=== PATIENT | male | born 1975 | race American Indian/Alaskan Native ===

== ENCOUNTER 2017-04-05 13:16 | Emergency (ER) | payer MEDICAID ==
[2017-04-05 13:38] VITALS: RESP 20; TEMP 97.5
--- NOTE | 2017-04-05 14:38 | C.PDOC ---
History Of Present Illness 41 y/o male with questionable history of HTN, not on medications presents to ED with complaints of bilateral ankle and feet swelling for the past few days. Denies injury, chest pain, SOB, fever, chills, calf pain or any other complaints. Pt has not seen a doctor in past year. no recent surgery, no prolonged immobilization. Time Seen by Provider: 04/05/17 13:43 Chief Complaint (Nursing): Lower Extremity Problem/Injury History Per: Patient History/Exam Limitations: no limitations Onset/Duration Of Symptoms: Days Current Symptoms Are (Timing): Still Present Severity: Mild Recent travel outside of the [place]: No Past Medical History Reviewed: Historical Data, Nursing Documentation, Vital Signs Vital Signs: Last Vital Signs Temp 97.5 F L 04/05/17 13:34 Pulse 71 04/05/17 16:44 Resp 20 04/05/17 16:44 BP 140/85 04/05/17 16:44 Pulse Ox 97 04/08/17 05:01 - Medical History PMH: HTN Family History: States: Unknown Family Hx - Social History Hx Tobacco Use: Yes Hx Alcohol Use: Yes Hx Substance Use: Yes - Immunization History Hx Tetanus Toxoid Vaccination: No Hx Influenza Vaccination: No Hx Pneumococcal Vaccination: No Review Of Systems Constitutional: Negative for: Fever Cardiovascular: Negative for: Chest Pain, Palpitations, Orthopnea Respiratory: Negative for: Cough, Shortness of Breath Gastrointestinal: Negative for: Abdominal Pain Musculoskeletal: Positive for: Other (bilateral ankle and foot swelling; no calf pain) Neurological: Negative for: Weakness, Numbness Physical Exam - Physical Exam Appears: Non-toxic, No Acute Distress, Other (morbidly obese) Skin: Warm, Dry, No Rash Head: Atraumatic, Normacephalic Neck: Normal ROM, Supple Chest: Symmetrical Cardiovascular: Rhythm Regular, No Murmur Respiratory: Normal Breath Sounds, No Rales, No Rhonchi, No Wheezing Extremity: Normal ROM, No Calf Tenderness, Swelling (bilateral lower extremity swelling with +1/2 pitting edema, right greater than left. Fungal changes to bilateral toe nails) Pulses: Left Dorsalis Pedis: Normal, Right Dorsalis Pedis: Normal Neurological/Psych: Oriented x3, Normal Speech, Normal Cognition, Normal Motor, Normal Sensation ED Course And Treatment O2 Sat by Pulse Oximetry: 97 (room air) Pulse Ox Interpretation: Normal Progress Note: Plan: venous duplex bilat lower extremity. Study negative for DVT bilaterally. Disposition Counseled Patient/Family Regarding: Studies Performed, Diagnosis, Need For Followup, Smoking Cessation - Disposition Referrals: Jonatan Magana MD [Medical Doctor] - Disposition: HOME/ ROUTINE Disposition Time: 16:36 Condition: STABLE Additional Instructions: Keep legs elevated when possible. Follow up wit Dr Magana at your scheduled appointment. Return to ER for any worsening symptms. Weight loss and walking recommended. 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 - Scribe Statement The provider has reviewed the documentation as recorded by the Scribkahlil Layotn All medical record entries made by the Alexandruibe were at my direction and personally dictated by me. I have reviewed the chart and agree that the record accurately reflects my personal performance of the history, physical exam, medical decision making, and the department course for this patient. I have also personally directed, reviewed, and agree with the discharge instructions and disposition.
--- NOTE | 2017-04-05 16:16 | VASCLAB ---
PROCEDURE: Lower Extremity Venous Duplex Exam. HISTORY: bilateral swelling. right greater than left PRIORS: None. TECHNIQUE: Bilateral common femoral, femoral, popliteal and posterior tibial, peroneal and great saphenous veins were evaluated. Flow was assessed with color Doppler, compressibility, assessment of phasic flow and augmentation response. Report prepared by Raleigh Staley, MARLEN, RVT FINDINGS: RIGHT: 1. Common Femoral Vein: 1.1. Compressibility - Fully compressible: Thrombus - None : Flow - Phasic: Augmentation -Normal: Reflux - None. 2. Femoral Vein: 2.1. Compressibility - Fully compressible: Thrombus - None : Flow - Phasic: Augmentation -Normal: Reflux - None. 3. Popliteal Vein: 3.1. Compressibility - Fully compressible: Thrombus - None : Flow - Phasic: Augmentation -Normal: Reflux - None. 4. Posterior Tibial Vein: 4.1. Compressibility - Fully compressible: Thrombus - None: Flow - Phasic: Augmentation -Normal: Reflux - None. 5. Peroneal Vein: 5.1. Compressibility - Fully compressible: Thrombus - None: Flow - Phasic: Augmentation -Normal: Reflux - None. 6. Great Saphenous Vein: 6.1. Compressibility - Fully compressible: Thrombus - None: Flow - Phasic: Augmentation - Normal: Reflux - None. LEFT: 1. Common Femoral Vein: 1.1. Compressibility - Fully compressible: Thrombus - None: Flow - Phasic: Augmentation -Normal: Reflux - None. 2. Femoral Vein: 2.1. Compressibility - Fully compressible: Thrombus - None: Flow - Phasic: Augmentation -Normal: Reflux - None. 3. Popliteal Vein: 3.1. Compressibility - Fully compressible: Thrombus - None : Flow - Phasic: Augmentation -Normal: Reflux - None. 4. Posterior Tibial Vein: 4.1. Compressibility - Fully compressible: Thrombus - None: Flow - Phasic: Augmentation -Normal: Reflux - None. 5. Peroneal Vein: 5.1. Compressibility - Fully compressible: Thrombus - None: Flow - Phasic: Augmentation -Normal: Reflux - None. 6. Great Saphenous Vein: 6.1. Compressibility - Fully compressible: Thrombus - None: Flow - Phasic: Augmentation - Normal: Reflux - None. OTHER FINDINGS: Right: None significant. Left: None significant. IMPRESSION: Right: No evidence of deep or superficial vein thrombosis of the right lower extremity. Normal valve function noted of the right side. Left: No evidence of deep or superficial vein thrombosis of the left lower extremity. Normal valve function noted of the left side.
[2017-04-05 16:44] VITALS: BP 140/85; PULSE 71
[2017-04-08 05:02] VITALS: O2SAT 97
== END 2017-04-05 16:48 | disposition home or self-care (01) ==
LOC: C.ER 13:16
DX: R60.0 Localized edema (principal)

== ENCOUNTER 2017-10-24 06:51 | Emergency (ER) | payer MEDICAID ==
[2017-10-24 06:51] VITALS: BMI 103.4
[2017-10-24] MEDS ORDERED: Albuterol-Ipratrop 3 mg / 0.5 (3 ml) UD INH STA (07:25)
--- NOTE | 2017-10-24 07:35 | C.PDOC ---
History Of Present Illness 42-year-old male, presents to the emergency department with complaints of four day duration of a productive cough with white/yellow sputum that is associated with left sided chest and abdominal pain (only with cough). He notes mild associated shortness of breath. Patient denies any fever or chills. Of note, [facility] Time Seen by Provider: 10/24/17 07:02 Chief Complaint (Nursing): Cough, Cold, Congestion History Per: Patient History/Exam Limitations: no limitations Onset/Duration Of Symptoms: Days Current Symptoms Are (Timing): Still Present Past Medical History Reviewed: Historical Data, Nursing Documentation, Vital Signs Vital Signs: Last Vital Signs Temp 98.2 F 10/24/17 10:11 Pulse 102 H 10/24/17 10:11 Resp 20 10/24/17 10:11 BP 138/70 10/24/17 10:11 Pulse Ox 96 10/24/17 10:11 - Medical History PMH: Depression, HTN Family History: States: No Known Family Hx - Social History Hx Tobacco Use: Yes Hx Alcohol Use: Yes Hx Substance Use: Yes - Immunization History Hx Tetanus Toxoid Vaccination: No Hx Influenza Vaccination: No Hx Pneumococcal Vaccination: No Review Of Systems Constitutional: Negative for: Fever, Chills Cardiovascular: Positive for: Chest Pain Respiratory: Positive for: Cough, Shortness of Breath, Sputum (white-yellow) Gastrointestinal: Positive for: Abdominal Pain. Negative for: Vomiting Musculoskeletal: Negative for: Back Pain Neurological: Negative for: Weakness, Numbness, Headache Physical Exam - Physical Exam Appears: Non-toxic, No Acute Distress, Other (morbidly obese) Skin: Warm, Dry, No Rash Eye(s): bilateral: Normal Inspection Nose: Normal Oral Mucosa: Moist Lips: Normal Appearing Neck: Normal ROM, Supple Chest: Symmetrical, No Tenderness Cardiovascular: Rhythm Regular, No Murmur Respiratory: No Accessory Muscle Use, No Rales, No Rhonchi, No Wheezing, Other ( moist cough) Extremity: Normal ROM, No Tenderness, Swelling, Other Neurological/Psych: Oriented x3, Normal Speech, Normal Cognition, Normal Motor, Normal Sensation ED Course And Treatment - Laboratory Results Result Diagrams: 10/24/17 07:51 10/24/17 07:51 O2 Sat by Pulse Oximetry: 95 (RA) Medical Decision Making Medical Decision Making: Plan: * CMP * CBC * Chest X-Ray * Duoneb * Blood Cultures * Reassess and Disposition 936 am pt feeling better, cxr neg for infiltrate, pt made aware of mild venous congestion and need to follow up with Dr Magana and cardiology. Will d/c patient with zpak and albuterol mdi for bronchitis. Disposition Counseled Patient/Family Regarding: Studies Performed, Diagnosis, Need For Followup, Rx Given - Disposition Referrals: Jonatan Magana MD [Medical Doctor] - Disposition: HOME/ ROUTINE Disposition Time: 09:38 Condition: IMPROVED Additional Instructions: Take medications as prescribed. Follow up with Dr Magana in a few days; show him your xray report and recommend a referral to cardiology. Return to ER for any worsening symptoms. Prescriptions: Albuterol HFA [Ventolin HFA 90 mcg/actuation (8 g)] 2 puff IH Q6 #1 inhaler Azithromycin [Z-Ej] 250 mg PO DAILY #6 tab Instructions: Acute Bronchitis (ED) Forms: [facility] (Wallisian), General Discharge Instructions - Clinical Impression Clinical Impression: Bronchitis - Scribe Statement The provider has reviewed the documentation as recorded by the Scribe (Sofia Morales) All medical record entries made by the Scribe were at my direction and personally dictated by me. I have reviewed the chart and agree that the record accurately reflects my personal performance of the history, physical exam, medical decision making, and the department course for this patient. I have also personally directed, reviewed, and agree with the discharge instructions and disposition.
[2017-10-24] MEDS ORDERED: Albuterol-Ipratrop 3 mg / 0.5 (3 ml) UD ONE (07:48)
[2017-10-24 07:54] LABS: BASO # 0.1 K/uL (0.0-0.2); BASO % 0.8 % (0.0-2.0); EOS % 0.3 % (0.0-4.0); LYMPH # 1.3 K/uL (1.0-4.3); LYMPH % 13.4 % (20.0-40.0); MEAN CELL VOLUME 78.6 fL (80.0-94.0); MEAN CORPUSCULAR HEMOGLOBIN 27.1 pg (27.0-31.0); MEAN CORPUSCULAR HGB CONC 34.4 g/dL (33.0-37.0); MEAN PLATELET VOLUME 7.9 fL (7.2-11.7); MONO # 1.3 K/uL (0.0-0.8); MONO % 12.9 % (0.0-10.0); NEUT # 7.1 K/uL (1.8-7.0); NEUT % 72.6 % (50.0-75.0); RBC 4.8 Mil/uL (4.40-5.90); RED CELL DISTRIBUTION WIDTH 14.5 % (11.5-14.5); WHITE BLOOD COUNT 9.7 K/uL (4.8-10.8)
[2017-10-24 08:00] VITALS: RESP 20
[2017-10-24 08:06] LABS: ALBUMIN 3.7 g/dL (3.5-5.0); ALT/SGPT 35 U/L (21-72); AST/SGOT 38 U/L (17-59); BLOOD UREA NITROGEN 11 mg/dL (9-20); CALCIUM 7.9 mg/dl (8.6-10.4); GFR AFRICAN-AMERICAN > 60; GFR NON-AFRICAN AMERICAN > 60
[2017-10-24 09:06] LABS: SQUAMOUS EPITHIAL < 1 /hpf (0-5); URINE BACTERIA RARE (<OCC); URINE BILIRUBIN NEGATIVE (NEGATIVE); URINE BLOOD NEGATIVE (NEGATIVE); URINE CLARITY Hazy (Clear); URINE COLOR Yellow (YELLOW); URINE GLUCOSE (UA) NORMAL (Normal); URINE LEUKOCYTE ESTERASE NEG Leu/uL (Negative); URINE NITRATE NEGATIVE (NEGATIVE); URINE PROTEIN 1+ mg/dL (NEGATIVE); URINE UROBILINOGEN NORMAL mg/dL (0.2-1.0)
--- NOTE | 2017-10-24 09:14 | RAD ---
Chest x-ray single frontal view History: Shortness of breath. Comparison: 08/03/2016 Findings: Mild venous congestion. Mild cardiomegaly. Degenerative changes in the spine and shoulders. Impression: Mild venous congestion.
[2017-10-24 10:17] VITALS: BP 138/70; PULSE 102; TEMP 98.2
[2017-10-24 19:27] VITALS: O2SAT 95
== END 2017-10-24 10:17 | disposition home or self-care (01) ==
LOC: SUPCPDRO 06:51 → C.ER 06:51
DX: J40 Bronchitis, not specified as acute or chronic (principal)

== ENCOUNTER 2017-10-25 08:12 | Observation (INO) | payer MEDICAID ==
[2017-10-25 08:13] VITALS: BMI 103.4
[2017-10-25] MEDS ORDERED: Albuterol 0.083% Inhal Sol (2.5 mg/3 mL) UD ONE (08:42)
[2017-10-25] MEDS ORDERED: Promethazine/Cod 6.25mg-10mg/5ml Syr UD PO STA (09:01)
[2017-10-25] MEDS ORDERED: Albuterol 0.083% Inhal Sol (2.5 mg/3 mL) UD IH STA (09:01)
--- NOTE | 2017-10-25 09:07 | C.PDOC ---
History Of Present Illness 42 y/o male presents to ED with complaints of persistent cough with associated SOB for 6 days. Patient was seen at ED yesterday for same symptoms and given abx without relief. Notes "cough kept me up all night." Patient denies chest pain, headache, nausea, vomiting, abdominal pain, leg swelling or any other complaints at this time. Time Seen by Provider: 10/25/17 08:28 Chief Complaint (Nursing): Cough, Cold, Congestion History Per: Patient History/Exam Limitations: no limitations Onset/Duration Of Symptoms: Days Current Symptoms Are (Timing): Still Present Reports Recently: Seen In ED (10/24/17), Treated By A Physician Past Medical History Reviewed: Historical Data, Nursing Documentation, Vital Signs Vital Signs: Last Vital Signs Temp 98.7 F 10/25/17 16:43 Pulse 93 H 10/25/17 16:43 Resp 23 10/25/17 16:43 BP 151/90 H 10/25/17 16:43 Pulse Ox 95 10/25/17 16:43 - Medical History PMH: Depression, HTN Surgical History: No Surg Hx Family History: States: No Known Family Hx - Social History Hx Tobacco Use: Yes Hx Alcohol Use: Yes Hx Substance Use: Yes - Immunization History Hx Tetanus Toxoid Vaccination: No Hx Influenza Vaccination: No Hx Pneumococcal Vaccination: No Review Of Systems Cardiovascular: Positive for: Chest Pain Respiratory: Positive for: Cough, Wheezing. Negative for: Shortness of Breath Gastrointestinal: Negative for: Nausea, Vomiting Skin: Negative for: Rash Physical Exam - Physical Exam Appears: Non-toxic, Unkempt, Other (Morbidly obese) Skin: Warm, Dry, No Rash Head: Atraumatic, Normacephalic Eye(s): bilateral: Normal Inspection, PERRL, EOMI Ear(s): Bilateral: Normal Nose: Normal Oral Mucosa: Moist Throat: Normal, No Erythema, No Exudate Neck: Normal ROM, Supple Chest: Symmetrical Cardiovascular: Rhythm Regular Respiratory: Decreased Breath Sounds, No Accessory Muscle Use, No Rales, No Rhonchi, No Wheezing Gastrointestinal/Abdominal: Soft, No Tenderness, No Guarding, No Rebound Extremity: Normal ROM, No Pedal Edema, Capillary Refill (<2 seconds) Neurological/Psych: Oriented x3 ED Course And Treatment - Laboratory Results Result Diagrams: 10/25/17 09:36 10/25/17 09:36 O2 Sat by Pulse Oximetry: 95 (RA) Pulse Ox Interpretation: Normal Progress Note: ECG, Blood work, Neb Treatment, Influenza Test ordered. On re- evaluation, pt notes symtpoms persists, requests admission. Case discussed with Dr Todd, agreed upon admission. 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 - Scribe Statement The provider has reviewed the documentation as recorded by the Scribkahlil Padilla All medical record entries made by the Kaleigh were at my direction and personally dictated by me. I have reviewed the chart and agree that the record accurately reflects my personal performance of the history, physical exam, medical decision making, and the department course for this patient. I have also personally directed, reviewed, and agree with the discharge instructions and disposition.
[2017-10-25] MEDS ORDERED: Promethazine/Cod 6.25mg-10mg/5ml Syr UD ONE (09:38)
[2017-10-25 09:44] LABS: BASO # 0.1 K/uL (0.0-0.2); BASO % 0.8 % (0.0-2.0); EOS % 0.4 % (0.0-4.0); HEMOGLOBIN 12.5 g/dL (12.0-18.0); LYMPH # 1.6 K/uL (1.0-4.3); LYMPH % 17.1 % (20.0-40.0); MEAN CELL VOLUME 78.9 fL (80.0-94.0); MEAN CORPUSCULAR HEMOGLOBIN 26.7 pg (27.0-31.0); MEAN CORPUSCULAR HGB CONC 33.9 g/dL (33.0-37.0); MEAN PLATELET VOLUME 7.9 fL (7.2-11.7); MONO % 10.2 % (0.0-10.0); NEUT # 6.7 K/uL (1.8-7.0); NEUT % 71.5 % (50.0-75.0); RBC 4.67 Mil/uL (4.40-5.90); RED CELL DISTRIBUTION WIDTH 14.8 % (11.5-14.5); WHITE BLOOD COUNT 9.4 K/uL (4.8-10.8)
[2017-10-25 10:14] LABS: ALBUMIN 3.6 g/dL (3.5-5.0); ALT/SGPT 27 U/L (21-72); AST/SGOT 42 U/L (17-59); BLOOD UREA NITROGEN 12 mg/dL (9-20); CALCIUM 8.1 mg/dl (8.6-10.4); GFR AFRICAN-AMERICAN > 60; GFR NON-AFRICAN AMERICAN > 60
[2017-10-25 10:27] LABS: B-TYPE NATRIURETIC PEPTIDE 50.7 pg/mL (0-450)
[2017-10-25] MEDS ORDERED: Sodium Chloride 0.9% 1,000 ML IV ONE (11:06)
--- NOTE | 2017-10-25 13:13 | CP.PCM.HP ---
Past Patient History - Infectious Disease Hx of Infectious Diseases: None - Past Social History Smoking Status: Light Smoker < 10 Cigarettes Daily - CARDIAC Hx Hypertension: Yes - ENDOCRINE/METABOLIC Other/Comment: Obesity as per patient - PSYCHIATRIC Hx Depression: Yes Hx Substance Use: Yes - SURGICAL HISTORY Hx Surgeries: No - ANESTHESIA Hx Anesthesia: No Hx Anesthesia Reactions: No Hx Malignant Hyperthermia: No Meds Allergies/Adverse Reactions: Allergies Allergy/AdvReac Type Severity Reaction Status Date / Time No Known Allergies Allergy Verified 10/25/17 08:29 Physical Exam - Constitutional Appears: Well - Head Exam Head Exam: ATRAUMATIC, NORMAL INSPECTION, NORMOCEPHALIC - Eye Exam Eye Exam: EOMI, Normal appearance, PERRL Pupil Exam: NORMAL ACCOMODATION, PERRL - ENT Exam ENT Exam: Mucous Membranes Moist, Normal Exam - Neck Exam Neck exam: Positive for: Normal Inspection - Respiratory Exam Respiratory Exam: Decreased Breath Sounds - Cardiovascular Exam Cardiovascular Exam: REGULAR RHYTHM, +S1, +S2 - GI/Abdominal Exam GI & Abdominal Exam: Diminished Bowel Sounds, Soft - Rectal Exam Rectal Exam: Deferred Results - Vital Signs Recent Vital Signs: Last Vital Signs Temp 99.0 F 10/25/17 08:23 Pulse 109 H 10/25/17 08:23 Resp 26 H 10/25/17 08:23 BP 145/87 10/25/17 08:23 Pulse Ox 95 10/25/17 09:10 - Labs Result Diagrams: 10/25/17 09:36 10/25/17 09:36 Labs: Laboratory Results - last 24 hr 10/25/17 10/25/17 10/25/17 08:12 09:36 09:36 WBC 9.4 RBC 4.67 Hgb 12.5 Hct 36.8 MCV 78.9 L MCH 26.7 L MCHC 33.9 RDW 14.8 H Plt Count 225 MPV 7.9 Neut % (Auto) 71.5 Lymph % (Auto) 17.1 L [place] % (Auto) 10.2 H Eos % (Auto) 0.4 Baso % (Auto) 0.8 Neut # (Auto) 6.7 Lymph # (Auto) 1.6 [place] # (Auto) 1.0 H Eos # (Auto) 0.0 Baso # (Auto) 0.1 Sodium 134 Potassium 3.5 L Chloride 97 L Carbon Dioxide 26 Anion Gap 14 BUN 12 Creatinine 0.8 Est GFR ( Amer) > 60 Est GFR (Non-Af Amer) > 60 Random Glucose 131 H Calcium 8.1 L Total Bilirubin 0.5 AST 42 ALT 27 Alkaline Phosphatase 85 Total Creatine Kinase 1161 H CK-MB (Mass) 2.40 Troponin I 0.0180 NT-Pro-B Natriuret Pep 50.7 Total Protein 7.2 Albumin 3.6 Globulin 3.6 Albumin/Globulin Ratio 1.0 Influenza Typ A,B (EIA) Negative for flu a/b
[2017-10-25] MEDS ORDERED: Potassium Chloride 20 mEq ER Tab PO ONE (16:29)
[2017-10-25] MEDS: cefTRIAXone IV 1 gm in Dextros 50 ML IVPB SCH ×2 (16:41→18:07)
[2017-10-25] MEDS: Potassium Chloride 20 mEq ER Tab PO SCH (16:41)
[2017-10-25] MEDS: MethylPREDNISolone 40 mg Vial IVP SCH ×2 (16:42→18:07)
[2017-10-25 17:08] LABS: B-TYPE NATRIURETIC PEPTIDE 40.6 pg/mL (0-450)
[2017-10-25] MEDS ORDERED: Azithromycin 500 MG in Sodium Chloride 0.9% 250 ML IVPB SCH (18:00)
--- NOTE | 2017-10-25 20:07 | CP.PCM.CON ---
Past Patient History - Infectious Disease Hx of Infectious Diseases: None - Past Social History Smoking Status: Light Smoker < 10 Cigarettes Daily - CARDIAC Hx Hypertension: Yes - ENDOCRINE/METABOLIC Other/Comment: Obesity as per patient - PSYCHIATRIC Hx Depression: Yes Hx Substance Use: Yes - SURGICAL HISTORY Hx Surgeries: No - ANESTHESIA Hx Anesthesia: No Hx Anesthesia Reactions: No Hx Malignant Hyperthermia: No Meds Allergies/Adverse Reactions: Allergies Allergy/AdvReac Type Severity Reaction Status Date / Time No Known Allergies Allergy Verified 10/25/17 08:29 - Medications Medications: Current Medications Albuterol Sulfate (Albuterol 0.083% Inhal Patricia (2.5 Mg/3 Ml) Ud) 2.5 mg INH RQ6 [facility] Famotidine (Pepcid) 20 mg PO BID [facility] Last Admin: 10/25/17 16:42 Dose: 20 mg Ceftriaxone Sodium (Rocephin Iv 1 Gm Duplex) 50 mls @ 100 mls/hr IVPB DAILY [facility] Last Admin: 10/25/17 18:07 Dose: Not Given Azithromycin 500 mg/ Sodium (Chloride) 250 mls @ 166.667 mls/hr IVPB Q24H [facility] Last Admin: 10/25/17 18:07 Dose: 166.667 mls/hr Methylprednisolone (Solu-Medrol) 40 mg IVP Q8H [facility] Last Admin: 10/25/17 18:07 Dose: 40 mg Potassium Chloride (K-Dur 20 Meq Er Tab) 40 meq PO BRK [facility] Last Admin: 10/25/17 16:41 Dose: 40 meq Results - Vital Signs Recent Vital Signs: Last Vital Signs Temp 98.6 F 10/25/17 19:48 Pulse 110 H 10/25/17 19:48 Resp 24 10/25/17 19:48 BP 143/86 10/25/17 19:48 Pulse Ox 93 L 10/25/17 19:48 - Labs Result Diagrams: 10/25/17 09:36 10/25/17 09:36 Labs: Laboratory Results - last 24 hr 10/25/17 10/25/17 10/25/17 08:12 09:36 09:36 WBC 9.4 RBC 4.67 Hgb 12.5 Hct 36.8 MCV 78.9 L MCH 26.7 L MCHC 33.9 RDW 14.8 H Plt Count 225 MPV 7.9 Neut % (Auto) 71.5 Lymph % (Auto) 17.1 L [place] % (Auto) 10.2 H Eos % (Auto) 0.4 Baso % (Auto) 0.8 Neut # (Auto) 6.7 Lymph # (Auto) 1.6 [place] # (Auto) 1.0 H Eos # (Auto) 0.0 Baso # (Auto) 0.1 Sodium 134 Potassium 3.5 L Chloride 97 L Carbon Dioxide 26 Anion Gap 14 BUN 12 Creatinine 0.8 Est GFR ( Amer) > 60 Est GFR (Non-Af Amer) > 60 Random Glucose 131 H Calcium 8.1 L Total Bilirubin 0.5 AST 42 ALT 27 Alkaline Phosphatase 85 Total Creatine Kinase 1161 H CK-MB (Mass) 2.40 Troponin I 0.0180 NT-Pro-B Natriuret Pep 50.7 Total Protein 7.2 Albumin 3.6 Globulin 3.6 Albumin/Globulin Ratio 1.0 Influenza Typ A,B (EIA) Negative for flu a/b 10/25/17 16:43 WBC RBC Hgb Hct MCV MCH MCHC RDW Plt Count MPV Neut % (Auto) Lymph % (Auto) [place] % (Auto) Eos % (Auto) Baso % (Auto) Neut # (Auto) Lymph # (Auto) [place] # (Auto) Eos # (Auto) Baso # (Auto) Sodium Potassium Chloride Carbon Dioxide Anion Gap BUN Creatinine Est GFR ( Amer) Est GFR (Non-Af Amer) Random Glucose Calcium Total Bilirubin AST ALT Alkaline Phosphatase Total Creatine Kinase 1103 H CK-MB (Mass) Troponin I NT-Pro-B Natriuret Pep 40.6 Total Protein Albumin Globulin Albumin/Globulin Ratio Influenza Typ A,B (EIA)
[2017-10-25] MEDS: Albuterol 0.083% Inhal Sol (2.5 mg/3 mL) UD INH SCH (20:29)
[2017-10-25 23:40] VITALS: RESP 20
[2017-10-26] MEDS: Albuterol 0.083% Inhal Sol (2.5 mg/3 mL) UD INH SCH ×2 (01:39→07:36)
[2017-10-26] MEDS: MethylPREDNISolone 40 mg Vial IVP SCH ×3 (01:59→18:00)
--- NOTE | 2017-10-26 08:23 | CP.PCM.PN ---
Subjective - Date & Time of Evaluation Date of Evaluation: 10/26/17 Time of Evaluation: 08:19 - Subjective Subjective: 42 year old male with past medical history of HTN and morbid obesity is admitted to hospital for acute bronchitis. Patient states that he has had a non -productive cough for past week. Cough is worse at night. Denies having any shortness of breath or wheezing. Cough is accompanied with sharp left sided chest pain. Pain does not radiate. Patient has not used anything for symptoms. Denies having any F/C, abd pain, N/V/D/C, rhinorrhea, sinus pressure or sinus congestion. In the ED, patient was given stat dose of IV steroids and IV abx. Pt currently complains of left sided sharp chest pain. 12 point ROS negative except for above mentioned. PMHx: stated above. Sx: denies Social: smokes 1/2 ppd, no ETOH use or drug use Meds: denies Objective - Vital Signs/Intake and Output Vital Signs (last 24 hours): Temp Pulse Resp BP Pulse Ox 97.9 F 99 H 20 143/81 94 L 10/26/17 07:41 10/26/17 07:41 10/26/17 07:41 10/26/17 07:41 10/26/17 07:41 Intake and Output: 10/26/17 10/26/17 06:59 18:59 Intake Total 300 Output Total 400 Balance -100 - Medications Medications: Current Medications Acetaminophen (Tylenol 325mg Tab) 650 mg PO Q6 PRN PRN Reason: Pain, moderate (4-7) Albuterol/Ipratropium (Duoneb 3 Mg/0.5 Mg (3 Ml) Ud) 3 ml INH RQ6 [facility] Enoxaparin Sodium (Lovenox) 40 mg SC DAILY [facility] Famotidine (Pepcid) 20 mg PO BID [facility] Last Admin: 10/25/17 16:42 Dose: 20 mg Ceftriaxone Sodium (Rocephin Iv 1 Gm Duplex) 50 mls @ 100 mls/hr IVPB DAILY [facility] Last Admin: 10/25/17 18:07 Dose: Not Given Azithromycin 500 mg/ Sodium (Chloride) 250 mls @ 166.667 mls/hr IVPB Q24H [facility] Last Admin: 10/25/17 18:07 Dose: 166.667 mls/hr Methylprednisolone (Solu-Medrol) 40 mg IVP Q8H [facility] Last Admin: 10/26/17 01:59 Dose: 40 mg Pneumococcal Polyvalent Vaccine (Pneumovax 23 Vaccine) 0.5 ml SC .ONCE ONE Stop: 10/26/17 10:01 Pneumococcal Polyvalent Vaccine (Pneumovax 23 Vaccine) 0.5 ml IM .ONCE ONE Stop: 10/27/17 10:01 Potassium Chloride (K-Dur 20 Meq Er Tab) 40 meq PO BRK [facility] Last Admin: 10/25/17 16:41 Dose: 40 meq Promethazine HCl (Phenergan Syrup) 12.5 mg PO Q6 [facility] - Labs Labs: 10/25/17 09:36 10/25/17 09:36 - Constitutional Appears: Non-toxic, No Acute Distress - Head Exam Head Exam: ATRAUMATIC - ENT Exam ENT Exam: Mucous Membranes Moist - Respiratory Exam Respiratory Exam: Wheezes. absent: Accessory Muscle Use, Clear to Ausculation Bilateral, Rales, Rhonchi, Respiratory Distress - Cardiovascular Exam Cardiovascular Exam: REGULAR RHYTHM, +S1, +S2. absent: Gallop, Rubs, Murmur Additional comments: chest non-tender to palpation - GI/Abdominal Exam GI & Abdominal Exam: Soft, Normal Bowel Sounds. absent: Distended, Firm, Guarding, Rigid, Tenderness, Organomegaly - Extremities Exam Extremities Exam: absent: Pedal Edema, Tenderness - Neurological Exam Neurological Exam: Alert, Awake, Oriented x3 - Psychiatric Exam Psychiatric exam: Normal Affect, Normal Mood - Skin Skin Exam: Dry, Intact, Normal Color, Warm Assessment and Plan - Assessment and Plan (Free Text) Assessment: 42 year old male with past medical history of HTN and morbid obesity is admitted for URI URI - CXR on admission showed mild venous congestion - Pro-BNP was negative. Initial trops were negative - EKG showed NSR with some T wave flattening in V4-6 and prolonged QT interval - Continue methylprednisone 40 mg IV q8 - Pt received Zithromax and rocephin in ED. - Pt is noted to have stable vital signs, and afebrile. No elevation in WBC count. - Due to prolonged QT interval, will switch Abx. Will start pt on rocephin and doxycycline Chest pain - Initial troponin is negative. CPK is elevated at 1100 - EKG showed T wave changes in V4-6 - Will check serial troponins and EKG - Pain likely due to costochondritis. However, due to risk factors for CAD ( smoking, male, hx of HTN) will get echo - Will consult cardiology, Dr. Gagnon HTN - Will start pt on Cozaar - Will continue to monitor Prophylaxis - Lovenox - Pepcid Case will be discussed with attending. All managements and orders per Dr. Todd
[2017-10-26] MEDS: Potassium Chloride 20 mEq ER Tab PO SCH (08:26)
[2017-10-26] MEDS ORDERED: guaiFENesin 200 mg/10 ml Syrup UD PO PRN (08:40)
[2017-10-26] MEDS: Promethazine 12.5 mg/10 ml Syrup PO SCH ×3 (10:00→18:05)
[2017-10-26] MEDS ORDERED: cefTRIAXone IV 1 gm in Dextros 50 ML IVPB SCH (10:00)
[2017-10-26] MEDS ORDERED: Pneumococcal 23-Valent Vaccine SC ONE (10:00)
[2017-10-26 10:27] LABS: BASO % 0.1 % (0.0-2.0); HEMOGLOBIN 12.4 g/dL (12.0-18.0); LYMPH # 1.2 K/uL (1.0-4.3); LYMPH % 8.1 % (20.0-40.0); MEAN CELL VOLUME 79.9 fL (80.0-94.0); MEAN CORPUSCULAR HEMOGLOBIN 26.9 pg (27.0-31.0); MEAN CORPUSCULAR HGB CONC 33.7 g/dL (33.0-37.0); MEAN PLATELET VOLUME 8.1 fL (7.2-11.7); MONO # 0.5 K/uL (0.0-0.8); MONO % 3.6 % (0.0-10.0); NEUT # 13.1 K/uL (1.8-7.0); NEUT % 88.2 % (50.0-75.0); PLATELET COUNT 266 K/uL (130-400); RBC 4.61 Mil/uL (4.40-5.90); RED CELL DISTRIBUTION WIDTH 14.9 % (11.5-14.5)
[2017-10-26 10:29] LABS: WHITE BLOOD COUNT 14.8 K/uL (4.8-10.8)
[2017-10-26] MEDS: Enoxaparin 40 mg Syringe SC SCH (10:47)
[2017-10-26 10:55] LABS: LDL CHOLESTEROL 92 mg/dL (0-129)
[2017-10-26 11:02] LABS: ALBUMIN 3.7 g/dL (3.5-5.0); ALT/SGPT 27 U/L (21-72); AST/SGOT 39 U/L (17-59); BLOOD UREA NITROGEN 13 mg/dL (9-20); CALCIUM 8.5 mg/dl (8.6-10.4); GFR AFRICAN-AMERICAN > 60; GFR NON-AFRICAN AMERICAN > 60; HDL CHOLESTEROL 40 mg/dL (30-70)
[2017-10-26 11:05] LABS: BANDS 2 % (0-2); LYMPHOCYTE 9 % (20-40); MONOCYTE 4 % (0-10); NEUTROPHIL 85 % (50-75); PLATELET ESTIMATE NORMAL (NORMAL); TOTAL CELLS COUNTED 100
[2017-10-26 11:06] LABS: LARGE PLATELETS PRESENT
[2017-10-26] MEDS: Albuterol-Ipratrop 3 mg / 0.5 (3 ml) UD INH SCH ×2 (13:44→19:47)
--- NOTE | 2017-10-26 18:26 | CP.PCM.PN ---
Subjective - Date & Time of Evaluation Date of Evaluation: 10/26/17 Time of Evaluation: 09:40 - Subjective Subjective: clinically same Objective - Vital Signs/Intake and Output Vital Signs (last 24 hours): Temp Pulse Resp BP Pulse Ox 98.2 F 86 20 137/60 97 10/26/17 16:00 10/26/17 16:00 10/26/17 16:00 10/26/17 16:00 10/26/17 16:00 Intake and Output: 10/26/17 10/26/17 06:59 18:59 Intake Total 950 Output Total 400 Balance 550 - Medications Medications: Current Medications Acetaminophen (Tylenol 325mg Tab) 650 mg PO Q6 PRN PRN Reason: Pain, moderate (4-7) Last Admin: 10/26/17 08:25 Dose: 650 mg Albuterol/Ipratropium (Duoneb 3 Mg/0.5 Mg (3 Ml) Ud) 3 ml INH RQ6 [facility] Last Admin: 10/26/17 13:44 Dose: Not Given Doxycycline Hyclate (Doryx) 100 mg PO Q12H [facility] Last Admin: 10/26/17 12:00 Dose: 100 mg Enoxaparin Sodium (Lovenox) 40 mg SC DAILY [facility] Last Admin: 10/26/17 10:47 Dose: 40 mg Famotidine (Pepcid) 20 mg PO BID [facility] Last Admin: 10/26/17 10:47 Dose: 20 mg Ceftriaxone Sodium (Rocephin Iv 1 Gm Duplex) 50 mls @ 100 mls/hr IVPB DAILY [facility] Last Admin: 10/26/17 10:46 Dose: 100 mls/hr Losartan Potassium (Cozaar) 25 mg PO DAILY [facility] Last Admin: 10/26/17 10:45 Dose: 25 mg Methylprednisolone (Solu-Medrol) 40 mg IVP Q8H [facility] Last Admin: 10/26/17 10:45 Dose: 40 mg Pneumococcal Polyvalent Vaccine (Pneumovax 23 Vaccine) 0.5 ml IM .ONCE ONE Stop: 10/27/17 10:01 Potassium Chloride (K-Dur 20 Meq Er Tab) 40 meq PO BRK [facility] Last Admin: 10/26/17 08:26 Dose: 40 meq Promethazine HCl (Phenergan Syrup) 12.5 mg PO Q6 [facility] Last Admin: 10/26/17 12:34 Dose: 12.5 mg - Labs Labs: 10/26/17 10:22 10/26/17 10:22 - Constitutional Appears: Well - Head Exam Head Exam: ATRAUMATIC, NORMAL INSPECTION, NORMOCEPHALIC - Eye Exam Eye Exam: EOMI, Normal appearance, PERRL Pupil Exam: NORMAL ACCOMODATION, PERRL - ENT Exam ENT Exam: Mucous Membranes Moist, Normal Exam - Neck Exam Neck Exam: Full ROM, Normal Inspection. absent: Lymphadenopathy - Respiratory Exam Respiratory Exam: Decreased Breath Sounds - Cardiovascular Exam Cardiovascular Exam: REGULAR RHYTHM, +S1, +S2 - GI/Abdominal Exam GI & Abdominal Exam: Soft, Diminished Bowel Sounds - Rectal Exam Rectal Exam: Deferred
--- NOTE | 2017-10-26 18:29 | CP.PCM.PN ---
Subjective - Date & Time of Evaluation Date of Evaluation: 10/26/17 Time of Evaluation: 18:29 Objective - Vital Signs/Intake and Output Vital Signs (last 24 hours): Temp Pulse Resp BP Pulse Ox 98.2 F 86 20 137/60 97 10/26/17 16:00 10/26/17 16:00 10/26/17 16:00 10/26/17 16:00 10/26/17 16:00 Intake and Output: 10/26/17 10/26/17 06:59 18:59 Intake Total 950 Output Total 400 Balance 550 - Medications Medications: Current Medications Acetaminophen (Tylenol 325mg Tab) 650 mg PO Q6 PRN PRN Reason: Pain, moderate (4-7) Last Admin: 10/26/17 08:25 Dose: 650 mg Albuterol/Ipratropium (Duoneb 3 Mg/0.5 Mg (3 Ml) Ud) 3 ml INH RQ6 [facility] Last Admin: 10/26/17 13:44 Dose: Not Given Doxycycline Hyclate (Doryx) 100 mg PO Q12H [facility] Last Admin: 10/26/17 12:00 Dose: 100 mg Enoxaparin Sodium (Lovenox) 40 mg SC DAILY [facility] Last Admin: 10/26/17 10:47 Dose: 40 mg Famotidine (Pepcid) 20 mg PO BID [facility] Last Admin: 10/26/17 10:47 Dose: 20 mg Ceftriaxone Sodium (Rocephin Iv 1 Gm Duplex) 50 mls @ 100 mls/hr IVPB DAILY [facility] Last Admin: 10/26/17 10:46 Dose: 100 mls/hr Losartan Potassium (Cozaar) 25 mg PO DAILY [facility] Last Admin: 10/26/17 10:45 Dose: 25 mg Methylprednisolone (Solu-Medrol) 40 mg IVP Q8H [facility] Last Admin: 10/26/17 10:45 Dose: 40 mg Pneumococcal Polyvalent Vaccine (Pneumovax 23 Vaccine) 0.5 ml IM .ONCE ONE Stop: 10/27/17 10:01 Potassium Chloride (K-Dur 20 Meq Er Tab) 40 meq PO BRK [facility] Last Admin: 10/26/17 08:26 Dose: 40 meq Promethazine HCl (Phenergan Syrup) 12.5 mg PO Q6 [facility] Last Admin: 10/26/17 12:34 Dose: 12.5 mg - Labs Labs: 02/08/18 10:22 10/26/17 10:22
[2017-10-27] MEDS: Promethazine 12.5 mg/10 ml Syrup PO SCH ×3 (00:15→12:03)
[2017-10-27] MEDS: Albuterol-Ipratrop 3 mg / 0.5 (3 ml) UD INH SCH ×2 (01:40→07:41)
[2017-10-27] MEDS: MethylPREDNISolone 40 mg Vial IVP SCH ×2 (02:04→10:22)
--- NOTE | 2017-10-27 06:22 | CARD ---
APPROVED REPORT EXAM: Two-dimensional and M-mode echocardiogram with Doppler and color Doppler. Other Information Quality : Limited/ TDSRhythm : INDICATION Chest Pain 2D DIMENSIONS IVSd1.2 (0.7-1.1cm)LVDd4.7 (3.9-5.9cm) PWd1.3 (0.7-1.1cm)LVDs3.3 (2.5-4.0cm) FS (%) 31.1 %LVEF (%)58.8 (>50%) M-Mode DIMENSIONS Left Atrium (MM)5.30 (2.5-4.0cm)Aortic Root3.82 (2.2-3.7cm) Aortic Cusp Exc.2.54 (1.5-2.0cm) Mitral Valve MV E Wgrxszpu127.3cm/sMV A Xjpjuwxh40.4cm/sE/A ratio1.2 TDI E/Lateral E'0.0E/Medial E'0.0 Tricuspid Valve TR Peak Fixpnbzs013pm/sTR Peak Gr.[id number] LEFT VENTRICLE The left ventricle is normal size. There is mild concentric left ventricular hypertrophy. Left ventricle systolic function is normal. The Ejection Fraction is 55-60%. There is normal LV segmental wall motion. The left ventricular diastolic function is normal. RIGHT VENTRICLE The right ventricle is normal size. There is normal right ventricular wall thickness. The right ventricular systolic function is normal. ATRIA The left atrium is mildly dilated. The right atrium size is normal. The interatrial septum is intact with no evidence for an atrial septal defect. AORTIC VALVE The aortic valve is normal in structure. No aortic regurgitation is present. There is no aortic valvular stenosis. There is no aortic valvular vegetation. MITRAL VALVE The mitral valve is normal in structure. There is no evidence of mitral valve prolapse. There is no mitral valve stenosis. There is no mitral valve regurgitation noted. TRICUSPID VALVE The tricuspid valve is normal in structure. There is mild tricuspid regurgitation. Right ventricular systolic pressure is estimated at 30 mmHg. There is borderline pulmonary hypertension. PULMONIC VALVE The pulmonic valve is not well visualized. There is no pulmonic valvular regurgitation. GREAT VESSELS The aortic root is normal in size. PERICARDIAL EFFUSION There is no significant pericardial effusion. <Conclusion> Left ventricle systolic function is normal. The Ejection Fraction is 55-60%. Hypertensive heart disease.. No aortic regurgitation is present. There is no mitral valve regurgitation noted. There is mild tricuspid regurgitation. There is borderline pulmonary hypertension. There is no pulmonic valvular regurgitation.
[2017-10-27 07:16] LABS: BASO % 0.1 % (0.0-2.0); LYMPH # 1.6 K/uL (1.0-4.3); LYMPH % 9.9 % (20.0-40.0); MEAN CELL VOLUME 79.8 fL (80.0-94.0); MEAN CORPUSCULAR HEMOGLOBIN 26.6 pg (27.0-31.0); MEAN CORPUSCULAR HGB CONC 33.3 g/dL (33.0-37.0); MEAN PLATELET VOLUME 8.3 fL (7.2-11.7); MONO # 0.6 K/uL (0.0-0.8); MONO % 3.6 % (0.0-10.0); NEUT # 13.9 K/uL (1.8-7.0); NEUT % 86.4 % (50.0-75.0); PLATELET COUNT 275 K/uL (130-400); RED CELL DISTRIBUTION WIDTH 14.7 % (11.5-14.5); WHITE BLOOD COUNT 16.1 K/uL (4.8-10.8)
[2017-10-27 07:39] LABS: ALB/GLOB RATIO 0.9 (1.0-2.1); ALBUMIN 3.5 g/dL (3.5-5.0); ALT/SGPT 32 U/L (21-72); AST/SGOT 40 U/L (17-59); BLOOD UREA NITROGEN 18 mg/dL (9-20); CALCIUM 8.6 mg/dl (8.6-10.4); GFR AFRICAN-AMERICAN > 60; GFR NON-AFRICAN AMERICAN > 60
[2017-10-27] MEDS: Potassium Chloride 20 mEq ER Tab PO SCH (08:30)
[2017-10-27 09:09] LABS: LARGE PLATELETS PRESENT; LYMPHOCYTE 11 % (20-40); MONOCYTE 2 % (0-10); NEUTROPHIL 87 % (50-75); PLATELET ESTIMATE NORMAL (NORMAL); TOTAL CELLS COUNTED 100
--- NOTE | 2017-10-27 09:35 | CP.PCM.CON ---
History of Present Illness - History of Present Illness History of Present Illness: 42 year old male with past medical history of HTN and morbid obesity is admitted to hospital for acute bronchitis. Patient states that he has had a non -productive cough for past week. Cough is worse at night. Denies having any shortness of breath or wheezing. Cough is accompanied with sharp left sided chest pain. Pain does not radiate. Patient has not used anything for symptoms. Denies having any F/C, abd pain, N/V/D/C, rhinorrhea, sinus pressure or sinus congestion. In the ED, patient was given stat dose of IV steroids and IV abx. Pt currently complains of left sided sharp chest pain. 12 point ROS negative except for above mentioned. PMHx: stated above. Cardiac Hx: No NV/CVA or cardiac procedures reported Sx: denies Social: smokes 1/2 ppd, no ETOH use or drug use: Morbidly obese with secondary limitation in mobility. Meds: denies Review of Systems - Review of Systems All systems: reviewed and no additional remarkable complaints except Past Patient History - Infectious Disease Hx of Infectious Diseases: None - Past Medical History & Family History Past Medical History?: No - Past Social History Smoking Status: Light Smoker < 10 Cigarettes Daily - CARDIAC Hx Hypertension: Yes - ENDOCRINE/METABOLIC Other/Comment: Obesity as per patient - PSYCHIATRIC Hx Depression: Yes Hx Substance Use: Yes - SURGICAL HISTORY Hx Surgeries: No - ANESTHESIA Hx Anesthesia: No Hx Anesthesia Reactions: No Hx Malignant Hyperthermia: No Meds Allergies/Adverse Reactions: Allergies Allergy/AdvReac Type Severity Reaction Status Date / Time No Known Allergies Allergy Verified 10/25/17 08:29 - Medications Medications: Current Medications Acetaminophen (Tylenol 325mg Tab) 650 mg PO Q6 PRN PRN Reason: Pain, moderate (4-7) Last Admin: 10/26/17 08:25 Dose: 650 mg Albuterol/Ipratropium (Duoneb 3 Mg/0.5 Mg (3 Ml) Ud) 3 ml INH RQ6 [facility] Last Admin: 10/27/17 07:41 Dose: Not Given Doxycycline Hyclate (Doryx) 100 mg PO Q12H [facility] Last Admin: 10/26/17 22:11 Dose: 100 mg Enoxaparin Sodium (Lovenox) 40 mg SC DAILY [facility] Last Admin: 10/26/17 10:47 Dose: 40 mg Famotidine (Pepcid) 20 mg PO BID [facility] Last Admin: 10/26/17 18:03 Dose: 20 mg Azithromycin 500 mg/ Sodium (Chloride) 250 mls @ 250 mls/hr IVPB DAILY [facility] Ceftriaxone Sodium 1 gm/ (Sodium Chloride) 100 mls @ 100 mls/hr IVPB DAILY [facility] Losartan Potassium (Cozaar) 25 mg PO DAILY [facility] Last Admin: 10/26/17 10:45 Dose: 25 mg Methylprednisolone (Solu-Medrol) 40 mg IVP Q8H [facility] Last Admin: 10/27/17 02:04 Dose: 40 mg Pneumococcal Polyvalent Vaccine (Pneumovax 23 Vaccine) 0.5 ml IM .ONCE ONE Stop: 10/27/17 10:01 Potassium Chloride (K-Dur 20 Meq Er Tab) 40 meq PO BRK [facility] Last Admin: 10/26/17 08:26 Dose: 40 meq Promethazine HCl (Phenergan Syrup) 12.5 mg PO Q6 [facility] Last Admin: 10/27/17 05:56 Dose: 12.5 mg Physical Exam - Constitutional Appears: No Acute Distress (Morbidly obese) - Head Exam Head Exam: ATRAUMATIC, NORMAL INSPECTION, NORMOCEPHALIC - Eye Exam Eye Exam: EOMI, Normal appearance, PERRL - ENT Exam ENT Exam: Mucous Membranes Moist, Normal Oropharynx - Respiratory Exam Respiratory Exam: Clear to Auscultation Bilateral, Wheezes, NORMAL BREATHING PATTERN. absent: Rhonchi - Cardiovascular Exam Cardiovascular Exam: REGULAR RHYTHM, +S1, +S2. absent: +S4, Systolic Murmur - GI/Abdominal Exam GI & Abdominal Exam: Soft. absent: Rebound, Tenderness - Extremities Exam Extremities exam: Positive for: full ROM, pedal edema, pedal pulses present. Negative for: calf tenderness - Neurological Exam Neurological exam: Alert, Oriented x3 - Psychiatric Exam Psychiatric exam: Normal Affect, Normal Mood - Skin Skin Exam: Normal Color (CEAP 2-3 venous stasis changes in legs), Warm Results - Vital Signs Recent Vital Signs: Last Vital Signs Temp 97.8 F 10/27/17 00:00 Pulse 97 H 10/27/17 00:00 Resp 20 10/27/17 00:00 BP 150/80 10/27/17 00:00 Pulse Ox 94 L 10/27/17 04:15 - Labs Result Diagrams: 10/27/17 06:37 10/27/17 06:37 Labs: Laboratory Results - last 24 hr 10/26/17 10/26/17 10/26/17 10:22 10:22 10:22 WBC 14.8 H D RBC 4.61 Hgb 12.4 Hct 36.8 MCV 79.9 L MCH 26.9 L MCHC 33.7 RDW 14.9 H Plt Count 266 MPV 8.1 Neut % (Auto) 88.2 H Lymph % (Auto) 8.1 L [place] % (Auto) 3.6 Eos % (Auto) 0.0 Baso % (Auto) 0.1 Neut # (Auto) 13.1 H Lymph # (Auto) 1.2 [place] # (Auto) 0.5 Eos # (Auto) 0.0 Baso # (Auto) 0.0 Neutrophils % (Manual) 85 H Band Neutrophils % 2 Lymphocytes % (Manual) 9 L Monocytes % (Manual) 4 Platelet Estimate Normal Large Platelets Present RBC Morphology Normal Sodium 137 Potassium 4.2 Chloride 100 Carbon Dioxide 26 Anion Gap 15 BUN 13 Creatinine 0.7 L Est GFR ( Amer) > 60 Est GFR (Non-Af Amer) > 60 Random Glucose 210 H Hemoglobin A1c Calcium 8.5 L Total Bilirubin 0.3 AST 39 ALT 27 Alkaline Phosphatase 85 Total Creatine Kinase 853 H Troponin I < 0.0120 Total Protein 7.6 Albumin 3.7 Globulin 3.9 Albumin/Globulin Ratio 1.0 Triglycerides 54 Cholesterol 157 LDL Cholesterol Direct 92 HDL Cholesterol 40 Procalcitonin < 0.05 L 10/26/17 10/26/17 10/27/17 10:22 19:50 06:37 WBC 16.1 H RBC 4.50 Hgb 12.0 Hct 35.9 MCV 79.8 L MCH 26.6 L MCHC 33.3 RDW 14.7 H Plt Count 275 MPV 8.3 Neut % (Auto) 86.4 H Lymph % (Auto) 9.9 L [place] % (Auto) 3.6 Eos % (Auto) 0.0 Baso % (Auto) 0.1 Neut # (Auto) 13.9 H Lymph # (Auto) 1.6 [place] # (Auto) 0.6 Eos # (Auto) 0.0 Baso # (Auto) 0.0 Neutrophils % (Manual) 87 H Band Neutrophils % Lymphocytes % (Manual) 11 L Monocytes % (Manual) 2 Platelet Estimate Normal Large Platelets Present RBC Morphology Sodium Potassium Chloride Carbon Dioxide Anion Gap BUN Creatinine Est GFR ( Amer) Est GFR (Non-Af Amer) Random Glucose Hemoglobin A1c 6.0 Calcium Total Bilirubin AST ALT Alkaline Phosphatase Total Creatine Kinase Troponin I < 0.0120 Total Protein Albumin Globulin Albumin/Globulin Ratio Triglycerides Cholesterol LDL Cholesterol Direct HDL Cholesterol Procalcitonin 10/27/17 06:37 WBC RBC Hgb Hct MCV MCH MCHC RDW Plt Count MPV Neut % (Auto) Lymph % (Auto) [place] % (Auto) Eos % (Auto) Baso % (Auto) Neut # (Auto) Lymph # (Auto) [place] # (Auto) Eos # (Auto) Baso # (Auto) Neutrophils % (Manual) Band Neutrophils % Lymphocytes % (Manual) Monocytes % (Manual) Platelet Estimate Large Platelets RBC Morphology Sodium 138 Potassium 4.5 Chloride 102 Carbon Dioxide 29 Anion Gap 12 BUN 18 Creatinine 0.8 Est GFR ( Amer) > 60 Est GFR (Non-Af Amer) > 60 Random Glucose 146 H Hemoglobin A1c Calcium 8.6 Total Bilirubin 0.4 AST 40 ALT 32 Alkaline Phosphatase 101 Total Creatine Kinase Troponin I Total Protein 7.4 Albumin 3.5 Globulin 3.9 Albumin/Globulin Ratio 0.9 L Triglycerides Cholesterol LDL Cholesterol Direct HDL Cholesterol Procalcitonin - EKG Data EKG Interpreted by: Myself Rate: Normal - Imaging and Cardiology Chest x-ray Status: Image reviewed by me (No CHF) Assessment & Plan - Assessment and Plan (Free Text) Assessment: 1. Acute on chronic bronchitis 2. Non-cardiac chest wall pain 3. HTN 4. Morbidly obese 5. Tobacco dependence Impression: CP is secondary to bronchitis/cough and is localized to chest wall > EKG: no ischemic changes, NSR > TROP: negative for ACS > ECHO: normal LVEF and wall motion, LVH with diastolic dysfunction Plan: Inc losartan to 50 Add a diuretic lasix 20-40 po daily: supplement K+ if needed Cont to provide supportiv care for COPD/bronchitis Encourage up in chair and ambulation with PT Suggest outpatient sleep study or eval for VAMSHI/OHS No additional cardiac testing planned DVT prophylaxis Will sign off. - Date & Time Date: 10/27/17 Time: 09:46
[2017-10-27] MEDS ORDERED: Pneumococcal 23-Valent Vaccine IM ONE (10:00)
[2017-10-27] MEDS ORDERED: Azithromycin 500 MG in Sodium Chloride 0.9% 250 ML IVPB SCH (10:00)
[2017-10-27] MEDS: Enoxaparin 40 mg Syringe SC SCH (10:22)
--- NOTE | 2017-10-27 12:28 | CP.PCM.PN ---
Subjective - Date & Time of Evaluation Date of Evaluation: 10/27/17 Time of Evaluation: 12:28 Objective - Vital Signs/Intake and Output Vital Signs (last 24 hours): Temp Pulse Resp BP Pulse Ox 97.4 F L 88 20 156/94 H 97 10/27/17 10:00 10/27/17 10:00 10/27/17 10:00 10/27/17 10:00 10/27/17 10:00 Intake and Output: 10/27/17 10/27/17 06:59 18:59 Intake Total 200 Balance 200 - Medications Medications: Current Medications Acetaminophen (Tylenol 325mg Tab) 650 mg PO Q6 PRN PRN Reason: Pain, moderate (4-7) Last Admin: 10/26/17 08:25 Dose: 650 mg Albuterol/Ipratropium (Duoneb 3 Mg/0.5 Mg (3 Ml) Ud) 3 ml INH RQ6 [facility] Last Admin: 10/27/17 07:41 Dose: Not Given Doxycycline Hyclate (Doryx) 100 mg PO Q12H [facility] Last Admin: 10/27/17 10:29 Dose: 100 mg Enoxaparin Sodium (Lovenox) 40 mg SC DAILY [facility] Last Admin: 10/27/17 10:22 Dose: 40 mg Famotidine (Pepcid) 20 mg PO BID [facility] Last Admin: 10/27/17 10:22 Dose: 20 mg Azithromycin 500 mg/ Sodium (Chloride) 250 mls @ 250 mls/hr IVPB DAILY [facility] Last Admin: 10/27/17 11:00 Dose: 250 mls/hr Ceftriaxone Sodium 1 gm/ (Sodium Chloride) 100 mls @ 100 mls/hr IVPB DAILY [facility] Last Admin: 10/27/17 10:24 Dose: 100 mls/hr Losartan Potassium (Cozaar) 25 mg PO DAILY [facility] Last Admin: 10/27/17 10:22 Dose: 25 mg Methylprednisolone (Solu-Medrol) 40 mg IVP Q8H [facility] Last Admin: 10/27/17 10:22 Dose: 40 mg Potassium Chloride (K-Dur 20 Meq Er Tab) 40 meq PO BRK [facility] Last Admin: 10/27/17 08:30 Dose: 40 meq Promethazine HCl (Phenergan Syrup) 12.5 mg PO Q6 [facility] Last Admin: 02/09/18 12:03 Dose: 12.5 mg - Labs Labs: 10/27/17 06:37 10/27/17 06:37
--- NOTE | 2017-10-27 14:57 | CP.PCM.PN ---
Subjective - Date & Time of Evaluation Date of Evaluation: 10/27/17 Time of Evaluation: 14:55 - Subjective Subjective: PGY2 progress note for Dr. Todd Pt seen and examined at bedside. No acute events overnight. Pt states after receiving toradol, chest pain has improved. Denies having any CP currently. Denies feeling short of breath, N/V/D/C, abd pain, F/C. Pt still has cough present, nonproductive. Tolerating diet. earlier, pt is sen walking around the hallway without difficulty. Objective - Vital Signs/Intake and Output Vital Signs (last 24 hours): Temp Pulse Resp BP Pulse Ox 97.4 F L 88 20 156/94 H 97 10/27/17 10:00 10/27/17 10:00 10/27/17 10:00 10/27/17 10:00 10/27/17 10:00 Intake and Output: 10/27/17 10/27/17 06:59 18:59 Intake Total 200 Balance 200 - Medications Medications: Current Medications Acetaminophen (Tylenol 325mg Tab) 650 mg PO Q6 PRN PRN Reason: Pain, moderate (4-7) Last Admin: 10/26/17 08:25 Dose: 650 mg Albuterol/Ipratropium (Duoneb 3 Mg/0.5 Mg (3 Ml) Ud) 3 ml INH RQ6 [facility] Last Admin: 10/27/17 07:41 Dose: Not Given Doxycycline Hyclate (Doryx) 100 mg PO Q12H [facility] Last Admin: 10/27/17 10:29 Dose: 100 mg Enoxaparin Sodium (Lovenox) 40 mg SC DAILY [facility] Last Admin: 10/27/17 10:22 Dose: 40 mg Famotidine (Pepcid) 20 mg PO BID [facility] Last Admin: 10/27/17 10:22 Dose: 20 mg Azithromycin 500 mg/ Sodium (Chloride) 250 mls @ 250 mls/hr IVPB DAILY [facility] Last Admin: 10/27/17 11:00 Dose: 250 mls/hr Ceftriaxone Sodium 1 gm/ (Sodium Chloride) 100 mls @ 100 mls/hr IVPB DAILY [facility] Last Admin: 10/27/17 10:24 Dose: 100 mls/hr Losartan Potassium (Cozaar) 25 mg PO DAILY [facility] Last Admin: 10/27/17 10:22 Dose: 25 mg Methylprednisolone (Solu-Medrol) 40 mg IVP Q8H [facility] Last Admin: 10/27/17 10:22 Dose: 40 mg Potassium Chloride (K-Dur 20 Meq Er Tab) 40 meq PO BRK [facility] Last Admin: 10/27/17 08:30 Dose: 40 meq Promethazine HCl (Phenergan Syrup) 12.5 mg PO Q6 [facility] Last Admin: 10/27/17 12:03 Dose: 12.5 mg - Labs Labs: 10/27/17 06:37 10/27/17 06:37 - Constitutional Appears: Non-toxic, No Acute Distress - Head Exam Head Exam: ATRAUMATIC - ENT Exam ENT Exam: Mucous Membranes Moist - Respiratory Exam Respiratory Exam: Clear to Ausculation Bilateral. absent: Accessory Muscle Use , Rales, Rhonchi, Wheezes, Respiratory Distress - Cardiovascular Exam Cardiovascular Exam: REGULAR RHYTHM, +S1, +S2. absent: Gallop, Rubs, Murmur - GI/Abdominal Exam GI & Abdominal Exam: Soft, Normal Bowel Sounds. absent: Distended, Firm, Guarding, Rigid, Tenderness, Organomegaly - Extremities Exam Extremities Exam: absent: Pedal Edema, Tenderness - Neurological Exam Neurological Exam: Alert, Awake, Oriented x3 - Psychiatric Exam Psychiatric exam: Normal Affect, Normal Mood - Skin Skin Exam: Dry, Intact, Normal Color, Warm Assessment and Plan - Assessment and Plan (Free Text) Assessment: 42 year old male with past medical history of HTN and morbid obesity is admitted for URI URI - CXR on admission showed mild venous congestion - Pro-BNP was negative. - Troponin x 3 negative - Echo showed EF of 55-60%. Hypertensive disease. Borderline pulm HTN and no pulmonic valvular regurg - Methylprednisone 40 mg IV QD - Pt received Zithromax and rocephin in ED. - Pt is noted to have stable vital signs, and afebrile. No elevation in WBC count. - Due to prolonged QT interval, will switch Abx. Continue doxycycline and rocephine Chest pain -Troponins and EKG negative - Echo was normal - Will consult cardiology, Dr. Gagnon. Recommend getting sleep study, and increase Cozaar to 50 mg po qd HTN - Will start pt on Cozaar - Will continue to monitor Prophylaxis - Lovenox - Pepcid Case will be discussed with attending. All managements and orders per Dr. Todd
[2017-10-27 16:55] VITALS: BP 149/92; PULSE 92; TEMP 97.9; O2SAT 96
[2017-10-28] MEDS ORDERED: MethylPREDNISolone 40 mg Vial IVP SCH (10:00)
--- NOTE | 2017-10-28 12:28 | CARD ---
APPROVED REPORT EKG Measurement Heart [id number] <Conclusion> Normal sinus rhythm Nonspecific T wave abnormality Prolonged QT Abnormal ECG
== END 2017-10-27 17:01 | disposition home or self-care (01) ==
LOC: C.ER 08:12 → C.9E 11:29 → C.6T 13:42 → C.9E 14:03 → C.3T 20:47
PROVIDERS: ADMIT Internal Medicine Nephrology; ATTEND Internal Medicine Nephrology
DX: J20.9 Acute bronchitis, unspecified (principal); J42 Unspecified chronic bronchitis; I27.20 Pulmonary hypertension, unspecified; I10 Essential (primary) hypertension; F17.210 Nicotine dependence, cigarettes, uncomplicated; E66.01 Morbid (severe) obesity due to excess calories; M62.82 Rhabdomyolysis
CPT/HCPCS: 36415; 80053; 80061; 82550; 82553; 83036; 83880; 84145; 84484; 85025; 87070; 87804; 90471; 90732; 93005; 93306; 94640; 96361; 96365; 96366; 96367; 96372; 96375; 96376; 99285; G0378; J0456; J0696; J1650; J1885; J2920; J2930; J7040; J7050

== ENCOUNTER 2017-10-27 17:44 | Inpatient (IN) | payer MEDICAID ==
[2017-10-27 17:44] VITALS: BMI 103.4
[2017-10-27] MEDS ORDERED: Albuterol-Ipratrop 3 mg / 0.5 (3 ml) UD INH STA ×2 (20:21→21:54)
[2017-10-27] MEDS ORDERED: Albuterol-Ipratrop 3 mg / 0.5 (3 ml) UD ONE ×2 (20:33→23:30)
[2017-10-27 21:38] LABS: BASO # 0.1 K/uL (0.0-0.2); BASO % 0.3 % (0.0-2.0); HEMOGLOBIN 11.6 g/dL (12.0-18.0); LYMPH # 2.4 K/uL (1.0-4.3); LYMPH % 11.9 % (20.0-40.0); MEAN CELL VOLUME 79.7 fL (80.0-94.0); MEAN CORPUSCULAR HEMOGLOBIN 26.3 pg (27.0-31.0); MEAN PLATELET VOLUME 7.7 fL (7.2-11.7); MONO % 5.2 % (0.0-10.0); NEUT # 16.6 K/uL (1.8-7.0); NEUT % 82.6 % (50.0-75.0); NRBC % 0.1 % (0.0-2.0); RBC 4.41 Mil/uL (4.40-5.90); RED CELL DISTRIBUTION WIDTH 14.8 % (11.5-14.5)
[2017-10-27 22:02] LABS: ALBUMIN 3.5 g/dL (3.5-5.0); ALT/SGPT 36 U/L (21-72); AST/SGOT 54 U/L (17-59); BLOOD UREA NITROGEN 20 mg/dL (9-20); CALCIUM 8.5 mg/dl (8.6-10.4); GFR AFRICAN-AMERICAN > 60; GFR NON-AFRICAN AMERICAN > 60
--- NOTE | 2017-10-27 22:18 | C.PDOC ---
History Of Present Illness Patient is a 42 y/o male who presents to the ED with complaints of cough and wheezing. Patient was discharged earlier today back to custodial; denies picking up out patient medications including MDI inhaler and steroids. Patient was previously admitted from 10/25-10/27. No other physical complaints at this time. Time Seen by Provider: 10/27/17 20:08 Chief Complaint (Nursing): Shortness Of Breath History Per: Patient History/Exam Limitations: no limitations Onset/Duration Of Symptoms: Hrs Current Symptoms Are (Timing): Still Present Associated Symptoms: Cough Recent travel outside of the [place]: No Past Medical History Reviewed: Historical Data, Nursing Documentation, Vital Signs Vital Signs: Last Vital Signs Temp 98.0 F 10/27/17 18:20 Pulse 117 H 10/27/17 18:20 Resp 22 10/27/17 18:20 BP 143/86 10/27/17 23:21 Pulse Ox 99 10/27/17 22:22 - Medical History PMH: Depression, HTN Surgical History: No Surg Hx Family History: States: Unknown Family Hx - Social History Hx Tobacco Use: Yes (light smoker) Hx Alcohol Use: Yes Hx Substance Use: Yes - Immunization History Hx Tetanus Toxoid Vaccination: No Hx Influenza Vaccination: No Hx Pneumococcal Vaccination: No Review Of Systems Respiratory: Positive for: Cough, Wheezing Physical Exam - Physical Exam Appears: Well, Non-toxic, No Acute Distress Skin: Normal Color, Warm, Dry Head: Atraumatic, Normacephalic Oral Mucosa: Moist Chest: Symmetrical Cardiovascular: Rhythm Regular, No Murmur Respiratory: Normal Breath Sounds, No Rales, No Rhonchi, Wheezing (scattered), Other (good air movement) Gastrointestinal/Abdominal: Other (morbidly obese) Extremity: Other (morbidly obese left lower extremity with pitting edema) Neurological/Psych: Oriented x3, Normal Speech, Normal Cognition ED Course And Treatment - Laboratory Results Result Diagrams: 10/27/17 21:34 10/27/17 21:34 Lab Interpretation: Abnormal ECG: Interpreted By Me ECG Rhythm: Sinus Tachycardia ECG Interpretation: Abnormal Rate From EC O2 Sat by Pulse Oximetry: 99 Pulse Ox Interpretation: Normal - Radiology CXR: Interpreted by Me CXR Interpretation: Yes: No Acute Disease, Other (? + venous congestion vs poor inspiration and body habitus) Progress Note: lasix IV, solumedrol, duoneb x 2 Reevaluation Time: 22:19 Reassessment Condition: Improved Critical Care Time - Critical Care Note Total Time (in mins): 90 Documented critical care: time excludes all time spent performing seperately billable procedures. Medical Decision Making Medical Decision Making: viral syndrome vs airway dz ? malingering as pt asymptomatic on d/c earlier today leg edema ? related to body habitus vs venous insuff as BNP normal on admission a few days ago Leukocytosis prob due to steroid treatments, no source of infection now, defer ABX Disposition Doctor Will See Patient In The: Hospital Counseled Patient/Family Regarding: Studies Performed, Diagnosis - Disposition Disposition: HOSPITALIZED Disposition Time: 22:21 Condition: GOOD - Clinical Impression Clinical Impression: Influenza-like illness, Reactive airway disease, Leg edema, Chronic venous stasis dermatitis, Morbid obesity - Scribe Statement The provider has reviewed the documentation as recorded by the Scribe Niru Mcnamara All medical record entries made by the Alexandruibe were at my direction and personally dictated by me. I have reviewed the chart and agree that the record accurately reflects my personal performance of the history, physical exam, medical decision making, and the department course for this patient. I have also personally directed, reviewed, and agree with the discharge instructions and disposition.
--- NOTE | 2017-10-28 08:26 | RAD ---
HISTORY: SOB COMPARISON: Chest x-ray performed 10/24/17 TECHNIQUE: Chest, one view. FINDINGS: Examination limited by habitus and hypoinflation. LUNGS: Right apical pleural thickening. Linear atelectasis, left mid lung zone. Mild pulmonary venous congestion. Please note that chest x-ray has limited sensitivity for the detection of pulmonary masses. PLEURA: No significant pleural effusion identified. No definite pneumothorax . CARDIOVASCULAR: Heart size appears top normal. OSSEOUS STRUCTURES: Degenerative changes. VISUALIZED UPPER ABDOMEN: Unremarkable. OTHER FINDINGS: None. IMPRESSION: Limited study. Right apical pleural thickening. Linear atelectasis, left mid lung zone. Mild pulmonary venous congestion.
[2017-10-28] MEDS: MethylPREDNISolone 40 mg Vial IVP SCH ×2 (11:12→18:42)
[2017-10-28] MEDS: Pantoprazole 40 mg EC Tab PO SCH (11:13)
[2017-10-28] MEDS: Azithromycin 500 MG in Sodium Chloride 0.9% 250 ML IVPB SCH (11:27)
[2017-10-28] MEDS: Albuterol-Ipratrop 3 mg / 0.5 (3 ml) UD INH SCH ×2 (14:00→20:11)
--- NOTE | 2017-10-28 15:43 | CP.PCM.HP ---
Past Patient History - Infectious Disease Hx of Infectious Diseases: None - Past Medical History & Family History Past Medical History?: No - Past Social History Smoking Status: Light Smoker < 10 Cigarettes Daily - CARDIAC Hx Hypertension: Yes - ENDOCRINE/METABOLIC Other/Comment: Obesity as per patient - PSYCHIATRIC Hx Depression: Yes Hx Substance Use: Yes - SURGICAL HISTORY Hx Surgeries: No - ANESTHESIA Hx Anesthesia: No Hx Anesthesia Reactions: No Hx Malignant Hyperthermia: No Meds Allergies/Adverse Reactions: Allergies Allergy/AdvReac Type Severity Reaction Status Date / Time No Known Allergies Allergy Verified 10/25/17 08:29 Physical Exam - Constitutional Appears: Well - Head Exam Head Exam: ATRAUMATIC, NORMAL INSPECTION, NORMOCEPHALIC - Eye Exam Eye Exam: EOMI, Normal appearance, PERRL Pupil Exam: NORMAL ACCOMODATION, PERRL - ENT Exam ENT Exam: Mucous Membranes Moist, Normal Exam - Neck Exam Neck exam: Positive for: Normal Inspection - Respiratory Exam Respiratory Exam: Decreased Breath Sounds - Cardiovascular Exam Cardiovascular Exam: REGULAR RHYTHM, +S1, +S2 - GI/Abdominal Exam GI & Abdominal Exam: Diminished Bowel Sounds, Soft - Rectal Exam Rectal Exam: Deferred Results - Vital Signs Recent Vital Signs: Last Vital Signs Temp 98 F 10/28/17 12:00 Pulse 78 10/28/17 14:10 Resp 20 10/28/17 12:00 BP 144/86 10/28/17 12:00 Pulse Ox 99 10/28/17 12:00 - Labs Result Diagrams: 10/27/17 21:34 10/27/17 21:34 Labs: Laboratory Results - last 24 hr 10/27/17 10/27/17 21:34 21:34 WBC 20.0 H RBC 4.41 Hgb 11.6 L Hct 35.1 MCV 79.7 L MCH 26.3 L MCHC 33.0 RDW 14.8 H Plt Count 305 MPV 7.7 Neut % (Auto) 82.6 H Lymph % (Auto) 11.9 L Thomas % (Auto) 5.2 Eos % (Auto) 0.0 Baso % (Auto) 0.3 Neut # (Auto) 16.6 H Lymph # (Auto) 2.4 Thomas # (Auto) 1.0 H Eos # (Auto) 0.0 Baso # (Auto) 0.1 Sodium 138 Potassium 4.4 Chloride 101 Carbon Dioxide 26 Anion Gap 16 BUN 20 Creatinine 0.8 Est GFR ( Amer) > 60 Est GFR (Non-Af Amer) > 60 Random Glucose 160 H Calcium 8.5 L Total Bilirubin 0.3 AST 54 ALT 36 Alkaline Phosphatase 97 Troponin I < 0.0120 NT-Pro-B Natriuret Pep 82.0 Total Protein 7.0 Albumin 3.5 Globulin 3.5 Albumin/Globulin Ratio 1.0 Assessment & Plan (1) Leg edema Status: Acute (2) Reactive airway disease Status: Acute (3) Bronchitis Status: Acute (4) Bronchospasm Status: Acute (5) Cough Status: Acute (6) Leg swelling Status: Acute (7) Medical assessment Status: Acute (8) Pedal edema Status: Acute (9) Rhabdomyolysis Status: Acute (10) Uvulitis Status: Acute - Assessment and Plan (Free Text) Plan: rocephin zithromax ivf duoneb lasix cardio consult gil as ordered
[2017-10-28] MEDS: guaiFENesin 100 mg/5 ml Syrup UD PO SCH ×2 (18:42→21:55)
[2017-10-28] MEDS: Fluticasone-Salmeterol 250-50mcg Diskus INH SCH (20:11)
[2017-10-29] MEDS: Albuterol-Ipratrop 3 mg / 0.5 (3 ml) UD INH SCH ×4 (01:30→20:41)
[2017-10-29] MEDS: MethylPREDNISolone 40 mg Vial IVP SCH ×3 (01:51→17:12)
[2017-10-29] MEDS: guaiFENesin 100 mg/5 ml Syrup UD PO SCH ×4 (02:51→21:34)
[2017-10-29] MEDS: Fluticasone-Salmeterol 250-50mcg Diskus INH SCH ×2 (07:50→20:40)
[2017-10-29] MEDS: Pantoprazole 40 mg EC Tab PO SCH (10:18)
[2017-10-29] MEDS: Enoxaparin 40 mg Syringe SC SCH (10:24)
[2017-10-29] MEDS: Azithromycin 500 MG in Sodium Chloride 0.9% 250 ML IVPB SCH (10:33)
--- NOTE | 2017-10-29 14:27 | CP.PCM.PN ---
Subjective - Date & Time of Evaluation Date of Evaluation: 10/29/17 Time of Evaluation: 08:40 - Subjective Subjective: clinically same Objective - Vital Signs/Intake and Output Vital Signs (last 24 hours): Temp Pulse Resp BP Pulse Ox 97.4 F L 107 H 20 150/80 96 10/29/17 08:24 10/29/17 08:24 10/29/17 08:24 10/29/17 10:21 10/29/17 08:24 Intake and Output: 10/29/17 10/29/17 06:59 18:59 Intake Total 380 Balance 380 - Medications Medications: Current Medications Albuterol/Ipratropium (Duoneb 3 Mg/0.5 Mg (3 Ml) Ud) 3 ml INH RQ6 [facility] Last Admin: 10/29/17 13:14 Dose: 3 ml Enoxaparin Sodium (Lovenox) 40 mg SC DAILY [facility] Last Admin: 10/29/17 10:24 Dose: 40 mg Furosemide (Lasix) 40 mg IVP DAILY [facility] Last Admin: 10/29/17 10:21 Dose: 40 mg Guaifenesin (Robitussin) 200 mg PO Q6H [facility] Last Admin: 10/29/17 10:18 Dose: 200 mg Ceftriaxone Sodium 1 gm/ (Sodium Chloride) 100 mls @ 100 mls/hr IVPB DAILY [facility] Last Admin: 10/29/17 10:33 Dose: 100 mls/hr Azithromycin 500 mg/ Sodium (Chloride) 250 mls @ 250 mls/hr IVPB DAILY [facility] Last Admin: 10/29/17 10:33 Dose: 250 mls/hr Losartan Potassium (Cozaar) 50 mg PO DAILY [facility] Last Admin: 10/29/17 10:18 Dose: 50 mg Methylprednisolone (Solu-Medrol) 40 mg IVP Q8H [facility] Last Admin: 10/29/17 10:20 Dose: 40 mg Pantoprazole Sodium (Protonix Ec Tab) 40 mg PO DAILY [facility] Last Admin: 10/29/17 10:18 Dose: 40 mg Pneumococcal Polyvalent Vaccine (Pneumovax 23 Vaccine) 0.5 ml IM .ONCE ONE Stop: 10/31/17 10:01 Fluticasone/Salmeterol (Advair Diskus 250/50) 1 puff INH RQ12 [facility] Last Admin: 10/29/17 07:50 Dose: 1 puff - Labs Labs: 10/27/17 21:34 10/27/17 21:34 - Constitutional Appears: Well - Head Exam Head Exam: ATRAUMATIC, NORMAL INSPECTION, NORMOCEPHALIC - Eye Exam Eye Exam: EOMI, Normal appearance, PERRL Pupil Exam: NORMAL ACCOMODATION, PERRL - ENT Exam ENT Exam: Mucous Membranes Moist, Normal Exam - Neck Exam Neck Exam: Full ROM, Normal Inspection. absent: Lymphadenopathy - Respiratory Exam Respiratory Exam: Decreased Breath Sounds - Cardiovascular Exam Cardiovascular Exam: REGULAR RHYTHM, +S1, +S2 - GI/Abdominal Exam GI & Abdominal Exam: Soft, Diminished Bowel Sounds - Rectal Exam Rectal Exam: Deferred Assessment and Plan (1) Leg edema Status: Acute (2) Reactive airway disease Status: Acute (3) Bronchitis Status: Acute (4) Bronchospasm Status: Acute (5) Cough Status: Acute (6) Leg swelling Status: Acute (7) Medical assessment Status: Acute (8) Pedal edema Status: Acute (9) Rhabdomyolysis Status: Acute (10) Uvulitis Status: Acute
[2017-10-30] MEDS: Albuterol-Ipratrop 3 mg / 0.5 (3 ml) UD INH SCH ×4 (01:23→19:17)
[2017-10-30] MEDS: MethylPREDNISolone 40 mg Vial IVP SCH ×3 (02:30→17:30)
[2017-10-30] MEDS: guaiFENesin 100 mg/5 ml Syrup UD PO SCH ×4 (02:47→21:47)
[2017-10-30] MEDS: Pantoprazole 40 mg EC Tab PO SCH (10:39)
[2017-10-30] MEDS: Enoxaparin 40 mg Syringe SC SCH (10:40)
[2017-10-30] MEDS: Azithromycin 500 MG in Sodium Chloride 0.9% 250 ML IVPB SCH (10:56)
[2017-10-30] MEDS: Fluticasone-Salmeterol 250-50mcg Diskus INH SCH ×2 (11:08→19:17)
--- NOTE | 2017-10-30 11:38 | CARD ---
APPROVED REPORT EKG Measurement Heart [id number] <Conclusion> Sinus tachycardia Otherwise normal ECG
[2017-10-30 11:56] LABS: HEMOGLOBIN 12.2 g/dL (12.0-18.0); LYMPH # 3.5 K/uL (1.0-4.3); MEAN CORPUSCULAR HEMOGLOBIN 26.1 pg (27.0-31.0); MEAN CORPUSCULAR HGB CONC 32.6 g/dL (33.0-37.0); MONO # 1.8 K/uL (0.0-0.8); MONO % 7.9 % (0.0-10.0); NEUT # 17.8 K/uL (1.8-7.0); NEUT % 77.1 % (50.0-75.0); NRBC % 0.2 % (0.0-2.0); RBC 4.67 Mil/uL (4.40-5.90); RED CELL DISTRIBUTION WIDTH 14.7 % (11.5-14.5); WHITE BLOOD COUNT 23.1 K/uL (4.8-10.8)
[2017-10-30 12:28] LABS: ALBUMIN 3.6 g/dL (3.5-5.0); ALT/SGPT 43 U/L (21-72); AST/SGOT 36 U/L (17-59); BLOOD UREA NITROGEN 20 mg/dL (9-20); CALCIUM 8.4 mg/dl (8.6-10.4); GFR AFRICAN-AMERICAN > 60; GFR NON-AFRICAN AMERICAN > 60
--- NOTE | 2017-10-30 12:32 | CP.PCM.PN ---
Subjective - Date & Time of Evaluation Date of Evaluation: 10/30/17 Time of Evaluation: 12:30 - Subjective Subjective: progress note. rosaura de león pt seen and examined at bedside. no acute distress. no fevers, chills, vomiting , diarrhea. pt says breathing is better Objective - Vital Signs/Intake and Output Vital Signs (last 24 hours): Temp Pulse Resp BP Pulse Ox 97.2 F L 107 H 20 156/79 H 95 10/30/17 07:00 10/30/17 07:00 10/30/17 07:00 10/30/17 10:40 10/30/17 07:00 Intake and Output: 10/30/17 10/30/17 06:59 18:59 Intake Total 230 Balance 230 - Medications Medications: Current Medications Albuterol/Ipratropium (Duoneb 3 Mg/0.5 Mg (3 Ml) Ud) 3 ml INH RQ6 [facility] Last Admin: 10/30/17 10:52 Dose: 3 ml Enoxaparin Sodium (Lovenox) 40 mg SC DAILY [facility] Last Admin: 10/30/17 10:40 Dose: 40 mg Furosemide (Lasix) 40 mg IVP DAILY [facility] Last Admin: 10/30/17 10:40 Dose: 40 mg Guaifenesin (Robitussin) 200 mg PO Q6H [facility] Last Admin: 10/30/17 10:39 Dose: 200 mg Ceftriaxone Sodium 1 gm/ (Sodium Chloride) 100 mls @ 100 mls/hr IVPB DAILY [facility] Last Admin: 10/30/17 10:43 Dose: 100 mls/hr Azithromycin 500 mg/ Sodium (Chloride) 250 mls @ 250 mls/hr IVPB DAILY [facility] Last Admin: 10/30/17 10:56 Dose: 250 mls/hr Losartan Potassium (Cozaar) 50 mg PO DAILY [facility] Last Admin: 10/30/17 10:39 Dose: 50 mg Methylprednisolone (Solu-Medrol) 40 mg IVP Q8H [facility] Last Admin: 10/30/17 10:39 Dose: 40 mg Pantoprazole Sodium (Protonix Ec Tab) 40 mg PO DAILY [facility] Last Admin: 10/30/17 10:39 Dose: 40 mg Pneumococcal Polyvalent Vaccine (Pneumovax 23 Vaccine) 0.5 ml IM .ONCE ONE Stop: 10/31/17 10:01 Fluticasone/Salmeterol (Advair Diskus 250/50) 1 puff INH RQ12 [facility] Last Admin: 10/30/17 11:08 Dose: 1 puff - Labs Labs: 10/30/17 11:46 10/30/17 11:46 - Constitutional Appears: Non-toxic, No Acute Distress - Head Exam Head Exam: ATRAUMATIC, NORMAL INSPECTION, NORMOCEPHALIC - Eye Exam Eye Exam: EOMI - ENT Exam ENT Exam: Mucous Membranes Moist - Neck Exam Neck Exam: Full ROM, Normal Inspection - Respiratory Exam Respiratory Exam: Wheezes. absent: Respiratory Distress - Cardiovascular Exam Cardiovascular Exam: +S1, +S2 - GI/Abdominal Exam GI & Abdominal Exam: Soft, Normal Bowel Sounds. absent: Tenderness - Extremities Exam Extremities Exam: Pedal Edema. absent: Full ROM, Normal Inspection - Back Exam Back Exam: NORMAL INSPECTION - Neurological Exam Neurological Exam: Alert, Awake, Oriented x3 - Psychiatric Exam Psychiatric exam: Normal Affect, Normal Mood - Skin Skin Exam: Dry, Intact, Normal Color, Warm Assessment and Plan - Assessment and Plan (Free Text) Assessment: this is a 42 yo male presenting with sob 1. shortness of breath -continue duonebs -continue azithromycin -continue iv rocephin -cont solumedrol -continue advair -trop negative -bnp normal -initial ekg showed sinus tach 101 2. hx of edema -continue lasix 3. hx of htn -continue losartan 4. gi/dvt ppx -continue lovenox -continue protonix dw dr rosaura de león
[2017-10-30] MEDS ORDERED: Bisacodyl 5mg EC Tab PO ONE (15:37)
--- NOTE | 2017-10-30 19:29 | CP.PCM.PN ---
Subjective - Date & Time of Evaluation Date of Evaluation: 10/30/17 Time of Evaluation: 08:20 - Subjective Subjective: clinically same Objective - Vital Signs/Intake and Output Vital Signs (last 24 hours): Temp Pulse Resp BP Pulse Ox 97.0 F L 99 H 20 143/79 95 10/30/17 15:38 10/30/17 15:38 10/30/17 15:38 10/30/17 15:38 10/30/17 15:38 Intake and Output: 10/30/17 10/31/17 18:59 06:59 Intake Total 600 Balance 600 - Medications Medications: Current Medications Albuterol/Ipratropium (Duoneb 3 Mg/0.5 Mg (3 Ml) Ud) 3 ml INH RQ6 [facility] Last Admin: 10/30/17 19:17 Dose: 3 ml Docusate Sodium (Colace) 100 mg PO BID [facility] Last Admin: 10/30/17 17:29 Dose: 100 mg Enoxaparin Sodium (Lovenox) 40 mg SC DAILY [facility] Last Admin: 10/30/17 10:40 Dose: 40 mg Furosemide (Lasix) 40 mg IVP DAILY [facility] Last Admin: 10/30/17 10:40 Dose: 40 mg Guaifenesin (Robitussin) 200 mg PO Q6H [facility] Last Admin: 10/30/17 16:00 Dose: 200 mg Ceftriaxone Sodium 1 gm/ (Sodium Chloride) 100 mls @ 100 mls/hr IVPB DAILY [facility] Last Admin: 10/30/17 10:43 Dose: 100 mls/hr Azithromycin 500 mg/ Sodium (Chloride) 250 mls @ 250 mls/hr IVPB DAILY [facility] Last Admin: 10/30/17 10:56 Dose: 250 mls/hr Losartan Potassium (Cozaar) 50 mg PO DAILY [facility] Last Admin: 10/30/17 10:39 Dose: 50 mg Methylprednisolone (Solu-Medrol) 40 mg IVP Q8H [facility] Last Admin: 10/30/17 17:30 Dose: 40 mg Pantoprazole Sodium (Protonix Ec Tab) 40 mg PO DAILY [facility] Last Admin: 10/30/17 10:39 Dose: 40 mg Pneumococcal Polyvalent Vaccine (Pneumovax 23 Vaccine) 0.5 ml IM .ONCE ONE Stop: 10/31/17 10:01 Fluticasone/Salmeterol (Advair Diskus 250/50) 1 puff INH RQ12 [facility] Last Admin: 10/30/17 19:17 Dose: 1 puff - Labs Labs: 10/30/17 11:46 10/30/17 11:46 Assessment and Plan (1) Leg edema Status: Acute (2) Reactive airway disease Status: Acute (3) Bronchitis Status: Acute (4) Bronchospasm Status: Acute (5) Cough Status: Acute (6) Leg swelling Status: Acute (7) Medical assessment Status: Acute (8) Pedal edema Status: Acute (9) Rhabdomyolysis Status: Acute (10) Uvulitis Status: Acute - Assessment and Plan (Free Text) Plan: -continue duonebs -continue azithromycin -continue iv rocephin -cont solumedrol -continue advair -trop negative -bnp normal -initial ekg showed sinus tach 101
[2017-10-31] MEDS: Albuterol-Ipratrop 3 mg / 0.5 (3 ml) UD INH SCH ×4 (01:44→20:39)
[2017-10-31] MEDS: MethylPREDNISolone 40 mg Vial IVP SCH ×3 (02:44→17:20)
[2017-10-31] MEDS: guaiFENesin 100 mg/5 ml Syrup UD PO SCH ×4 (03:25→21:29)
[2017-10-31] MEDS: Fluticasone-Salmeterol 250-50mcg Diskus INH SCH ×2 (07:28→20:39)
[2017-10-31 08:52] LABS: BASO # 0.1 K/uL (0.0-0.2); BASO % 0.3 % (0.0-2.0); HEMOGLOBIN 12.7 g/dL (12.0-18.0); LYMPH # 3.1 K/uL (1.0-4.3); LYMPH % 12.1 % (20.0-40.0); MEAN CELL VOLUME 79.8 fL (80.0-94.0); MEAN CORPUSCULAR HEMOGLOBIN 26.5 pg (27.0-31.0); MEAN CORPUSCULAR HGB CONC 33.2 g/dL (33.0-37.0); MEAN PLATELET VOLUME 7.7 fL (7.2-11.7); MONO # 0.9 K/uL (0.0-0.8); MONO % 3.6 % (0.0-10.0); NEUT # 21.3 K/uL (1.8-7.0); NRBC % 0.2 % (0.0-2.0); RBC 4.79 Mil/uL (4.40-5.90); RED CELL DISTRIBUTION WIDTH 14.7 % (11.5-14.5); WHITE BLOOD COUNT 25.4 K/uL (4.8-10.8)
[2017-10-31 09:14] LABS: ALBUMIN 3.6 g/dL (3.5-5.0); ALT/SGPT 46 U/L (21-72); AST/SGOT 30 U/L (17-59); BLOOD UREA NITROGEN 20 mg/dL (9-20); CALCIUM 8.7 mg/dl (8.6-10.4); GFR AFRICAN-AMERICAN > 60; GFR NON-AFRICAN AMERICAN > 60
[2017-10-31] MEDS ORDERED: Pneumococcal 23-Valent Vaccine IM ONE (10:00)
[2017-10-31] MEDS: Pantoprazole 40 mg EC Tab PO SCH (10:06)
[2017-10-31] MEDS: Enoxaparin 40 mg Syringe SC SCH (10:06)
--- NOTE | 2017-10-31 10:14 | CP.PCM.PN ---
Subjective - Date & Time of Evaluation Date of Evaluation: 10/31/17 Time of Evaluation: 10:00 - Subjective Subjective: progress note- rosaura de león md pt seen and examined at bedside. no acute distress. feeling better, breathing better. no fevers, chills, cp, sob. Objective - Vital Signs/Intake and Output Vital Signs (last 24 hours): Temp Pulse Resp BP Pulse Ox 98.1 F 91 H 23 156/107 H 96 10/31/17 08:52 10/31/17 08:52 10/31/17 08:52 10/31/17 08:52 10/31/17 08:52 Intake and Output: 10/31/17 10/31/17 06:59 18:59 Intake Total 240 Balance 240 - Medications Medications: Current Medications Albuterol/Ipratropium (Duoneb 3 Mg/0.5 Mg (3 Ml) Ud) 3 ml INH RQ6 [facility] Last Admin: 10/31/17 01:44 Dose: Not Given Docusate Sodium (Colace) 100 mg PO BID [facility] Last Admin: 10/30/17 17:29 Dose: 100 mg Enoxaparin Sodium (Lovenox) 40 mg SC DAILY [facility] Last Admin: 10/30/17 10:40 Dose: 40 mg Furosemide (Lasix) 40 mg IVP DAILY [facility] Last Admin: 10/30/17 10:40 Dose: 40 mg Guaifenesin (Robitussin) 200 mg PO Q6H [facility] Last Admin: 10/31/17 03:25 Dose: Not Given Ceftriaxone Sodium 1 gm/ (Sodium Chloride) 100 mls @ 100 mls/hr IVPB DAILY [facility] Last Admin: 10/30/17 10:43 Dose: 100 mls/hr Azithromycin 500 mg/ Sodium (Chloride) 250 mls @ 250 mls/hr IVPB DAILY [facility] Last Admin: 10/30/17 10:56 Dose: 250 mls/hr Losartan Potassium (Cozaar) 50 mg PO DAILY [facility] Last Admin: 10/30/17 10:39 Dose: 50 mg Methylprednisolone (Solu-Medrol) 40 mg IVP Q8H [facility] Last Admin: 10/31/17 02:44 Dose: 40 mg Pantoprazole Sodium (Protonix Ec Tab) 40 mg PO DAILY [facility] Last Admin: 10/30/17 10:39 Dose: 40 mg Fluticasone/Salmeterol (Advair Diskus 250/50) 1 puff INH RQ12 [facility] Last Admin: 10/30/17 19:17 Dose: 1 puff - Labs Labs: 10/31/17 08:42 10/31/17 08:42 - Constitutional Appears: Non-toxic, No Acute Distress - Head Exam Head Exam: ATRAUMATIC, NORMAL INSPECTION, NORMOCEPHALIC - Eye Exam Eye Exam: EOMI - ENT Exam ENT Exam: Mucous Membranes Moist - Neck Exam Neck Exam: Full ROM, Normal Inspection - Respiratory Exam Respiratory Exam: Decreased Breath Sounds. absent: Respiratory Distress - Cardiovascular Exam Cardiovascular Exam: REGULAR RHYTHM, +S1, +S2 - GI/Abdominal Exam GI & Abdominal Exam: Soft, Normal Bowel Sounds. absent: Tenderness - Extremities Exam Extremities Exam: Full ROM, Normal Inspection - Back Exam Back Exam: NORMAL INSPECTION - Neurological Exam Neurological Exam: Alert, Awake, Oriented x3 - Psychiatric Exam Psychiatric exam: Normal Affect, Normal Mood - Skin Skin Exam: Dry, Intact, Normal Color, Warm Assessment and Plan - Assessment and Plan (Free Text) Assessment: this is a 42 yo male presenting with sob 1. shortness of breath -continue duonebs -continue iv azithromycin -continue iv rocephin -cont solumedrol iv -secondary leukocytosis likely 2 to steroids -continue advair -trop negative -bnp normal -blood cultures negative -initial ekg showed sinus tach 101 2. hx of edema -continue lasix 3. hx of htn -continue losartan 4. gi/dvt ppx -continue lovenox -continue protonix dw dr rosaura de león
[2017-10-31] MEDS: Azithromycin 500 MG in Sodium Chloride 0.9% 250 ML IVPB SCH (10:19)
--- NOTE | 2017-10-31 16:44 | CP.PCM.PN ---
Subjective - Date & Time of Evaluation Date of Evaluation: 10/31/17 Time of Evaluation: 07:40 - Subjective Subjective: clinically same Objective - Vital Signs/Intake and Output Vital Signs (last 24 hours): Temp Pulse Resp BP Pulse Ox 98 F 105 H 23 120/70 96 10/31/17 15:19 10/31/17 15:19 10/31/17 15:19 10/31/17 15:19 10/31/17 15:19 Intake and Output: 10/31/17 10/31/17 06:59 18:59 Intake Total 240 600 Balance 240 600 - Medications Medications: Current Medications Albuterol/Ipratropium (Duoneb 3 Mg/0.5 Mg (3 Ml) Ud) 3 ml INH RQ6 [facility] Last Admin: 10/31/17 14:10 Dose: 3 ml Azithromycin (Zithromax) 500 mg PO DAILY [facility] Docusate Sodium (Colace) 100 mg PO BID [facility] Last Admin: 10/31/17 10:06 Dose: 100 mg Enoxaparin Sodium (Lovenox) 40 mg SC DAILY [facility] Last Admin: 10/31/17 10:06 Dose: 40 mg Furosemide (Lasix) 40 mg IVP DAILY [facility] Last Admin: 10/31/17 10:08 Dose: 40 mg Guaifenesin (Robitussin) 200 mg PO Q6H [facility] Last Admin: 10/31/17 10:18 Dose: 200 mg Ceftriaxone Sodium 1 gm/ (Sodium Chloride) 100 mls @ 100 mls/hr IVPB DAILY [facility] Last Admin: 10/31/17 10:09 Dose: 100 mls/hr Losartan Potassium (Cozaar) 50 mg PO DAILY [facility] Last Admin: 10/31/17 10:06 Dose: 50 mg Methylprednisolone (Solu-Medrol) 40 mg IVP Q8H [facility] Last Admin: 10/31/17 10:19 Dose: 40 mg Pantoprazole Sodium (Protonix Ec Tab) 40 mg PO DAILY [facility] Last Admin: 10/31/17 10:06 Dose: 40 mg Fluticasone/Salmeterol (Advair Diskus 250/50) 1 puff INH RQ12 [facility] Last Admin: 10/31/17 07:28 Dose: 1 puff - Labs Labs: 10/31/17 08:42 10/31/17 08:42 - Constitutional Appears: Well - Head Exam Head Exam: ATRAUMATIC, NORMAL INSPECTION, NORMOCEPHALIC - Eye Exam Eye Exam: EOMI, Normal appearance, PERRL Pupil Exam: NORMAL ACCOMODATION, PERRL - ENT Exam ENT Exam: Mucous Membranes Moist, Normal Exam - Neck Exam Neck Exam: Full ROM, Normal Inspection. absent: Lymphadenopathy - Respiratory Exam Respiratory Exam: Decreased Breath Sounds - Cardiovascular Exam Cardiovascular Exam: REGULAR RHYTHM, +S1, +S2 - GI/Abdominal Exam GI & Abdominal Exam: Soft, Diminished Bowel Sounds - Rectal Exam Rectal Exam: Deferred Assessment and Plan (1) Leg edema Status: Acute (2) Reactive airway disease Status: Acute (3) Bronchitis Status: Acute (4) Bronchospasm Status: Acute (5) Cough Status: Acute (6) Leg swelling Status: Acute (7) Medical assessment Status: Acute (8) Pedal edema Status: Acute (9) Rhabdomyolysis Status: Acute (10) Uvulitis Status: Acute
[2017-11-01 01:16] VITALS: RESP 20; TEMP 97.7
[2017-11-01] MEDS: MethylPREDNISolone 40 mg Vial IVP SCH ×2 (02:29→10:01)
[2017-11-01] MEDS: Albuterol-Ipratrop 3 mg / 0.5 (3 ml) UD INH SCH ×3 (02:36→13:23)
[2017-11-01] MEDS: guaiFENesin 100 mg/5 ml Syrup UD PO SCH ×2 (04:12→13:15)
[2017-11-01 07:39] LABS: HEMOGLOBIN 12.5 g/dL (12.0-18.0); LYMPH % 12.2 % (20.0-40.0); MEAN CELL VOLUME 79.6 fL (80.0-94.0); MEAN CORPUSCULAR HEMOGLOBIN 26.8 pg (27.0-31.0); MEAN CORPUSCULAR HGB CONC 33.7 g/dL (33.0-37.0); MEAN PLATELET VOLUME 7.6 fL (7.2-11.7); MONO # 1.4 K/uL (0.0-0.8); MONO % 5.7 % (0.0-10.0); NEUT # 20.5 K/uL (1.8-7.0); NEUT % 82.1 % (50.0-75.0); NRBC % 0.1 % (0.0-2.0); RBC 4.66 Mil/uL (4.40-5.90); RED CELL DISTRIBUTION WIDTH 14.9 % (11.5-14.5); WHITE BLOOD COUNT 25.1 K/uL (4.8-10.8)
[2017-11-01] MEDS: Fluticasone-Salmeterol 250-50mcg Diskus INH SCH (07:43)
[2017-11-01 08:27] LABS: ALB/GLOB RATIO 1.1 (1.0-2.1); ALBUMIN 3.5 g/dL (3.5-5.0); ALT/SGPT 39 U/L (21-72); AST/SGOT 24 U/L (17-59); BLOOD UREA NITROGEN 19 mg/dL (9-20); CALCIUM 8.6 mg/dl (8.6-10.4); GFR AFRICAN-AMERICAN > 60; GFR NON-AFRICAN AMERICAN > 60
--- NOTE | 2017-11-01 09:20 | CP.PCM.PN ---
Subjective - Date & Time of Evaluation Date of Evaluation: 11/01/17 Time of Evaluation: 09:15 - Subjective Subjective: progress note- rosaura de león pt seen and examined at bedside. no acute distress. feels breathing and cough is getting better. denies fevers, chills, chest pain, vomiting, diarrhea. Objective - Vital Signs/Intake and Output Vital Signs (last 24 hours): Temp Pulse Resp BP Pulse Ox 97.7 F 92 H 20 145/76 95 11/01/17 08:16 11/01/17 08:16 11/01/17 08:16 11/01/17 08:16 11/01/17 08:16 - Medications Medications: Current Medications Albuterol/Ipratropium (Duoneb 3 Mg/0.5 Mg (3 Ml) Ud) 3 ml INH RQ6 [facility] Last Admin: 11/01/17 07:43 Dose: 3 ml Azithromycin (Zithromax) 500 mg PO DAILY [facility] Docusate Sodium (Colace) 100 mg PO BID [facility] Last Admin: 10/31/17 17:20 Dose: 100 mg Enoxaparin Sodium (Lovenox) 40 mg SC DAILY [facility] Last Admin: 10/31/17 10:06 Dose: 40 mg Furosemide (Lasix) 40 mg IVP DAILY [facility] Last Admin: 10/31/17 10:08 Dose: 40 mg Guaifenesin (Robitussin) 200 mg PO Q6H [facility] Last Admin: 11/01/17 04:12 Dose: 200 mg Ceftriaxone Sodium 1 gm/ (Sodium Chloride) 100 mls @ 100 mls/hr IVPB DAILY [facility] Last Admin: 10/31/17 10:09 Dose: 100 mls/hr Losartan Potassium (Cozaar) 50 mg PO DAILY [facility] Last Admin: 10/31/17 10:06 Dose: 50 mg Methylprednisolone (Solu-Medrol) 40 mg IVP Q8H [facility] Last Admin: 11/01/17 02:29 Dose: 40 mg Pantoprazole Sodium (Protonix Ec Tab) 40 mg PO DAILY [facility] Last Admin: 10/31/17 10:06 Dose: 40 mg Fluticasone/Salmeterol (Advair Diskus 250/50) 1 puff INH RQ12 [facility] Last Admin: 11/01/17 07:43 Dose: 1 puff - Labs Labs: 11/01/17 07:11 11/01/17 07:11 - Constitutional Appears: Non-toxic, No Acute Distress - Head Exam Head Exam: ATRAUMATIC, NORMAL INSPECTION, NORMOCEPHALIC - Eye Exam Eye Exam: EOMI - ENT Exam ENT Exam: Mucous Membranes Moist - Neck Exam Neck Exam: Full ROM, Normal Inspection - Respiratory Exam Respiratory Exam: Decreased Breath Sounds. absent: Respiratory Distress - Cardiovascular Exam Cardiovascular Exam: REGULAR RHYTHM, +S1, +S2 - GI/Abdominal Exam GI & Abdominal Exam: Soft, Normal Bowel Sounds. absent: Tenderness - Extremities Exam Extremities Exam: Full ROM, Pedal Edema. absent: Normal Inspection - Back Exam Back Exam: NORMAL INSPECTION - Neurological Exam Neurological Exam: Alert, Awake, CN II-XII Intact, Oriented x3 - Psychiatric Exam Psychiatric exam: Normal Affect, Normal Mood - Skin Skin Exam: Dry, Intact, Normal Color, Warm Assessment and Plan - Assessment and Plan (Free Text) Assessment: this is a 42 yo male presenting with sob 1. shortness of breath/community acquired pneumonia -continue duonebs -discontinue iv azithromycin >>>>> start PO azithromycin 500 mg daily ( day 1) -continue iv rocephin 1 gm daily -cont solumedrol iv 40 q 8 hrs -secondary leukocytosis likely 2 to steroids -continue advair -troponin negative -bnp normal -blood cultures negative -initial ekg showed sinus tach 101 -recent echo 11/05 shows normal lv fx with mild TR and mild pulm. HTN 2. hx of edema -continue lasix 40 iv daily 3. hx of htn/ hypertensive heart dx. -continue losartan daily 4. morbid obesity -recommend sleep study as outpatient 5. gi/dvt ppx -continue lovenox -continue protonix dw dr rosaura de león
[2017-11-01] MEDS: Enoxaparin 40 mg Syringe SC SCH (09:57)
[2017-11-01] MEDS: Pantoprazole 40 mg EC Tab PO SCH (09:57)
[2017-11-01 10:02] VITALS: BP 145/78
[2017-11-01 11:57] VITALS: PULSE 118; O2SAT 97
== END 2017-11-01 16:23 | disposition home or self-care (01) | DRG 541 ==
LOC: C.ER 17:44 → C.9E 22:13 → C.3T 10-28 16:21
PROVIDERS: ADMIT Internal Medicine Nephrology; ATTEND Internal Medicine Nephrology
DX: J18.9 Pneumonia, unspecified organism (principal); M62.82 Rhabdomyolysis; E66.01 Morbid (severe) obesity due to excess calories; I11.9 Hypertensive heart disease without heart failure; K12.2 Cellulitis and abscess of mouth; Z68.45 Body mass index [BMI] 70 or greater, adult; J45.909 Unspecified asthma, uncomplicated; J40 Bronchitis, not specified as acute or chronic; I87.8 Other specified disorders of veins; I87.2 Venous insufficiency (chronic) (peripheral); F17.219 Nicotine dependence, cigarettes, with unspecified nicotine-induced disorders

== ENCOUNTER 2017-11-14 19:04 | Inpatient (IN) | payer MEDICAID ==
[2017-11-14 19:04] VITALS: BMI 103.4
[2017-11-14 21:14] LABS: BASO # 0.1 K/uL (0.0-0.2); BASO % 0.8 % (0.0-2.0); EOS # 0.4 K/uL (0.0-0.7); HEMOGLOBIN 10.7 g/dL (12.0-18.0); LYMPH # 2.4 K/uL (1.0-4.3); LYMPH % 19.8 % (20.0-40.0); MEAN CELL VOLUME 80.4 fL (80.0-94.0); MEAN CORPUSCULAR HEMOGLOBIN 26.4 pg (27.0-31.0); MEAN CORPUSCULAR HGB CONC 32.8 g/dL (33.0-37.0); MEAN PLATELET VOLUME 7.3 fL (7.2-11.7); MONO # 0.7 K/uL (0.0-0.8); MONO % 6.1 % (0.0-10.0); NEUT # 8.4 K/uL (1.8-7.0); NEUT % 70.3 % (50.0-75.0); RBC 4.08 Mil/uL (4.40-5.90); RED CELL DISTRIBUTION WIDTH 15.4 % (11.5-14.5); WHITE BLOOD COUNT 11.9 K/uL (4.8-10.8)
[2017-11-14 21:31] LABS: BLOOD UREA NITROGEN 11 mg/dL (9-20); CALCIUM 8.4 mg/dl (8.6-10.4); GFR AFRICAN-AMERICAN > 60; GFR NON-AFRICAN AMERICAN > 60
--- NOTE | 2017-11-14 22:41 | CT ---
EXAM: CT Abdomen and Pelvis With Intravenous Contrast EXAM DATE/TIME: 11/14/2017 8:52 PM CLINICAL HISTORY: 42 years old, male; Pain; Abdominal pain; Localized; Left; Additional info: Swelling, tenderness to left abdominal wall TECHNIQUE: Axial computed tomography images of the abdomen and pelvis with intravenous contrast. All CT scans at this facility use one or more dose reduction techniques, viz.: automated exposure control; ma/kV adjustment per patient size (including targeted exams where dose is matched to indication; i.e. head); or iterative reconstruction technique. Coronal and sagittal reformatted images were created and reviewed. CONTRAST: 100 mL of omnipaque 300 administered intravenously. COMPARISON: No relevant prior studies available. FINDINGS: LIMITATIONS: Artifact related to the patient's body habitus. Mild motion artifact. LOWER THORAX: Small to moderate left pleural effusion. ABDOMEN: LIVER: Fatty infiltration of the liver. GALLBLADDER AND BILE DUCTS: No CT evidence of acute cholecystitis. No evidence of significant biliary ductal dilatation. PANCREAS: No CT evidence of acute pancreatitis. SPLEEN: No acute abnormality of the spleen identified. ADRENALS: No acute abnormality of the adrenal glands identified. KIDNEYS AND URETERS: No acute abnormality of the kidneys identified. No evidence of significant hydrouereteronephrosis. STOMACH AND BOWEL: No acute abnormality of the stomach, small bowel or colon identified. No evidence of bowel obstruction. APPENDIX: Appendix is seen, and is within normal limits in appearance. PELVIS: BLADDER: No acute abnormality of the bladder identified. REPRODUCTIVE: No acute abnormality of the reproductive organs is seen. ABDOMEN and PELVIS: INTRAPERITONEAL SPACE: No evidence of free intraperitoneal air or fluid. BONES/JOINTS: No acute fractures or other acute bony abnormality noted. SOFT TISSUES: Diffuse, extensive fluid in the left abdominal wall soft tissues laterally. This involves the subcutaneous fat. There is also mild, diffuse swelling of the left lateral abdominal wall musculature. No evidence of soft tissue gas or a large, measurable soft tissue abscess. However, note that the left abdominal wall soft tissues are not completely included on the scan. VASCULATURE: No evidence of abdominal aortic aneurysm. No evidence of periaortic hemorrhage. LYMPH NODES: No evidence of diffuse lymphadenopathy. IMPRESSION: - Extensive fluid in the left lateral abdominal wall subcutaneous fat. This is of uncertain etiology, but could be due to recent trauma, i.e., represent resolving subcutaneous hemorrhage. Soft tissue infection is not excluded. No soft tissue gas or abscess is seen, but note that the left abdominal wall soft tissues are not completely included on the scan. - Small to moderate left pleural effusion. - See above for remaining findings.
[2017-11-14] MEDS ORDERED: Piperacill/Tazo 4.5gm in Dex 4.5 GM/100 ML BAG IVPB ONE (23:00)
[2017-11-14] MEDS ORDERED: Piperacillin/Tazobact 3.375 gm 100 ML IV STA (23:01)
--- NOTE | 2017-11-14 23:03 | C.PDOC ---
History Of Present Illness 42 year old male presents to the ER with a complaint of pain and swelling to the left abdominal area that worsens with movement and coughing for the past 2 weeks after being diagnosed with bronchitis. Patient was told he has possible muscle strain from coughing, however, he states the area feels swollen now which prompted ER visit. Denies fever, nausea, vomiting, or urinary symptoms. Time Seen by Provider: 11/14/17 19:31 Chief Complaint (Nursing): Abdominal Pain History Per: Patient History/Exam Limitations: no limitations Onset/Duration Of Symptoms: Days Current Symptoms Are (Timing): Still Present Location Of Pain/Discomfort: Other (Left sided) Radiation Of Pain To:: None Quality Of Discomfort: Unable To Describe Associated Symptoms: denies: Fever, Nausea, Vomiting, Urinary Symptoms Exacerbating Factors: Movement, Cough Alleviating Factors: None Recent travel outside of the [place]: No Past Medical History Reviewed: Historical Data, Nursing Documentation, Vital Signs Vital Signs: Last Vital Signs Temp 98.6 F 11/15/17 01:52 Pulse 89 11/15/17 01:52 Resp 18 11/15/17 01:52 BP 92/58 L 11/15/17 01:52 Pulse Ox 98 11/15/17 05:04 - Medical History PMH: Depression, HTN Family History: States: Unknown Family Hx - Social History Hx Tobacco Use: Yes (light smoker) Hx Alcohol Use: Yes Hx Substance Use: Yes - Immunization History Hx Tetanus Toxoid Vaccination: No Hx Influenza Vaccination: No Hx Pneumococcal Vaccination: No Review Of Systems Constitutional: Negative for: Fever Cardiovascular: Negative for: Chest Pain, Palpitations Respiratory: Negative for: Shortness of Breath Gastrointestinal: Positive for: Abdominal Pain. Negative for: Nausea, Vomiting Genitourinary: Negative for: Dysuria, Hematuria Physical Exam - Physical Exam Appears: Non-toxic, Other (Morbidly obese) Skin: Normal Color, Warm, Dry Head: Atraumatic, Normacephalic Eye(s): bilateral: Normal Inspection Oral Mucosa: Moist Neck: Normal, Supple Chest: Symmetrical, No Tenderness Cardiovascular: Rhythm Regular Respiratory: Normal Breath Sounds, No Rales, No Rhonchi, No Wheezing Gastrointestinal/Abdominal: Soft, No Guarding, No Rebound, No Ascites, Other ( Left abdomen with striae and tenderness, warmth, and swelling. No distinct palpable masses. Mid to right abdomen normal.) Back: No CVA Tenderness Neurological/Psych: Oriented x3, Normal Speech ED Course And Treatment - Laboratory Results Result Diagrams: 11/14/17 21:05 11/14/17 21:05 O2 Sat by Pulse Oximetry: 98 (Room air) Pulse Ox Interpretation: Normal - CT Scan/US CT abd/pel Other Rad Studies (CT/US): Read By Radiologist, Radiology Report Reviewed CT/US Interpretation: EXAM: CT Abdomen and Pelvis With Intravenous Contrast. EXAM DATE/TIME: 11/14/2017 8:52 PM. CLINICAL HISTORY: 42 years old, male; Pain ; Abdominal pain; Localized; Left; Additional info: Swelling, tenderness to left. abdominal wall. TECHNIQUE: Axial computed tomography images of the abdomen and pelvis with intravenous contrast. All CT. scans at this facility use one or more dose reduction techniques, viz.: automated exposure control;. ma/kV adjustment per patient size (including targeted exams where dose is matched to indication; i.e. head); or iterative reconstruction technique. Coronal and sagittal reformatted images were created and reviewed. CONTRAST: 100 mL of omnipaque 300 administered intravenously. COMPARISON: No relevant prior studies available. FINDINGS: LIMITATIONS: Artifact related to the patient's body habitus. Mild motion artifact. LOWER THORAX: Small to moderate left pleural effusion. ABDOMEN: LIVER: Fatty infiltration of the liver. GALLBLADDER AND BILE DUCTS: No CT evidence of acute cholecystitis. No evidence of. significant biliary ductal dilatation. PANCREAS: No CT evidence of acute pancreatitis. SPLEEN: No acute abnormality of the spleen identified. ADRENALS : No acute abnormality of the adrenal glands identified. KIDNEYS AND URETERS: No acute abnormality of the kidneys identified. No evidence of. significant hydrouereteronephrosis. STOMACH AND BOWEL: No acute abnormality of the stomach , small bowel or colon identified. No. evidence of bowel obstruction. APPENDIX : Appendix is seen, and is within normal limits in appearance. PELVIS: BLADDER : No acute abnormality of the bladder identified. REPRODUCTIVE: No acute abnormality of the reproductive organs is seen. ABDOMEN and PELVIS: INTRAPERITONEAL SPACE: No evidence of free intraperitoneal air or fluid. BONES/ JOINTS: No acute fractures or other acute bony abnormality noted. SOFT TISSUES : Diffuse, extensive fluid in the left abdominal wall soft tissues laterally. This involves. the subcutaneous fat. There is also mild, diffuse swelling of the left lateral abdominal wall. musculature. No evidence of soft tissue gas or a large, measurable soft tissue abscess. However,. note that the left abdominal wall soft tissues are not completely included on the scan. VASCULATURE: No evidence of abdominal aortic aneurysm. No evidence of periaortic. hemorrhage. LYMPH NODES: No evidence of diffuse lymphadenopathy. IMPRESSION: - Extensive fluid in the left lateral abdominal wall subcutaneous fat. This is of uncertain. etiology, but could be due to recent trauma, i.e., represent resolving subcutaneous. hemorrhage. Soft tissue infection is not excluded. No soft tissue gas or abscess is seen, but. note that the left abdominal wall soft tissues are not completely included on the scan. - Small to moderate left pleural effusion. - See above for remaining findings. Progress Note: CT abd/pel and blood work ordered. Toradol and zosyn administered. Lab work and CT results discussed with Dr. Leonides Todd who agrees with plan to admit patient for observation, IV antibiotics, and surgical consult. Disposition - Disposition Disposition: HOME/ ROUTINE Disposition Time: 05:02 Condition: STABLE - Clinical Impression Clinical Impression: Abdominal pain, Left upper quadrant abdominal swelling - PA / [employer] HEL[employer] / Resident Statement MD/DO has reviewed & agrees with the documentation as recorded. - Scribe Statement The provider has reviewed the documentation as recorded by the Scribe Raleigh Galvan All medical record entries made by the Alexandruibkahlil were at my direction and personally dictated by me. I have reviewed the chart and agree that the record accurately reflects my personal performance of the history, physical exam, medical decision making, and the department course for this patient. I have also personally directed, reviewed, and agree with the discharge instructions and disposition.
[2017-11-15] MEDS: Piperacillin/Tazobact 3.375 gm 100 ML IVPB SCH ×3 (05:37→22:36)
[2017-11-15] MEDS ORDERED: Albuterol HFA 90 mcg/actuation (8 g) IH SCH (06:00)
[2017-11-15] MEDS: Albuterol HFA 90 mcg/actuation (8 g) IH SCH ×2 (07:02→12:58)
--- NOTE | 2017-11-15 07:58 | CP.PCM.CON ---
<Tra Contreras - Last Filed: 11/15/17 07:55> History of Present Illness - History of Present Illness History of Present Illness: PGy5 GI Fellow Consult Note Patient is a 42yo male with PMHx significant for morbid obesity and HTN who was recently admitted to our facility for URI/CAP who presents with cough and left sided chest/abdominal pain. The patient believes symptoms started approximately 2 weeks ago on returning home. He believed his URI had not completely resolved as he continued to have pain with movement, deep inspiration and notably palpation of the left chest wall/flank. On arrival to the ED, CT of the abdomen/ pelvis with IV contrast revealed a large subcutaneous fluid collection consistent with cellulitis. Patient admits area has been warm and tender to touch. Denies any change in bowel habits, nausea, vomiting, weight loss, fever, chills. PMHx: See HPI PSHx: Discussed with patient and denies surgical history FHx: Discussed with patient and denies significant family history Social: +tobacco user daily for 30+ years, occasional EtOH use, marijuana use Endo: No prior history 12 system ROS performed and negative except where stated Past Patient History - Infectious Disease Hx of Infectious Diseases: None - Past Medical History & Family History Past Medical History?: No - Past Social History Smoking Status: Light Smoker < 10 Cigarettes Daily - CARDIAC Hx Hypertension: Yes - ENDOCRINE/METABOLIC Other/Comment: Obesity as per patient - MUSCULOSKELETAL/RHEUMATOLOGICAL Hx Falls: No - PSYCHIATRIC Hx Depression: Yes Hx Substance Use: Yes - SURGICAL HISTORY Hx Surgeries: No - ANESTHESIA Hx Anesthesia: No Hx Anesthesia Reactions: No Hx Malignant Hyperthermia: No Meds Allergies/Adverse Reactions: Allergies Allergy/AdvReac Type Severity Reaction Status Date / Time No Known Allergies Allergy Verified 11/14/17 19:09 - Medications Medications: Current Medications Albuterol (Ventolin Hfa 90 Mcg/Actuation (8 G)) 2 puff IH Q6 [facility] Last Admin: 11/15/17 07:02 Dose: 2 puff Enoxaparin Sodium (Lovenox) 40 mg SC DAILY [facility] Piperacillin Sod/Tazobactam Sod (Zosyn 3.375 In Ns 100ml) 100 mls @ 200 mls/hr IVPB Q8 [facility] Last Admin: 11/15/17 05:37 Dose: 200 mls/hr Losartan Potassium (Cozaar) 50 mg PO DAILY [facility] Pantoprazole Sodium (Protonix Ec Tab) 40 mg PO DAILY [facility] Fluticasone/Salmeterol (Advair Diskus 250/50) 1 puff INH RQ12 [facility] Physical Exam - Constitutional Appears: Non-toxic, No Acute Distress, Other (morbidly obese) - Eye Exam Eye Exam: EOMI, PERRL - ENT Exam ENT Exam: Mucous Membranes Moist - Respiratory Exam Respiratory Exam: Decreased Breath Sounds. absent: Rales, Rhonchi, Wheezes - Cardiovascular Exam Cardiovascular Exam: RRR, +S1, +S2 - GI/Abdominal Exam GI & Abdominal Exam: Normal Bowel Sounds, Soft, Tenderness (left flank, warmth with TTP of upper left flank in to lateral left chest inferior to axilla). absent: Distended, Firm, Guarding, Hernia, Organomegaly, Rigid Additional comments: obese - Extremities Exam Additional comments: 1+ B/L LE edema - Neurological Exam Neurological exam: Alert, Oriented x3 - Psychiatric Exam Psychiatric exam: Normal Affect, Normal Mood - Skin Skin Exam: Dry, Warm Results - Vital Signs Recent Vital Signs: Last Vital Signs Temp 98.1 F 11/15/17 05:38 Pulse 86 11/15/17 05:38 Resp 18 11/15/17 05:38 BP 110/65 11/15/17 05:38 Pulse Ox 98 11/15/17 05:38 - Labs Result Diagrams: 11/14/17 21:05 11/14/17 21:05 Labs: Laboratory Results - last 24 hr 11/14/17 11/14/17 21:05 21:05 WBC 11.9 H D RBC 4.08 L Hgb 10.7 L Hct 32.8 L MCV 80.4 MCH 26.4 L MCHC 32.8 L RDW 15.4 H Plt Count 223 D MPV 7.3 Neut % (Auto) 70.3 Lymph % (Auto) 19.8 L [place] % (Auto) 6.1 Eos % (Auto) 3.0 Baso % (Auto) 0.8 Neut # (Auto) 8.4 H Lymph # (Auto) 2.4 [place] # (Auto) 0.7 Eos # (Auto) 0.4 Baso # (Auto) 0.1 Sodium 139 Potassium 4.0 Chloride 103 Carbon Dioxide 29 Anion Gap 11 BUN 11 Creatinine 1.0 Est GFR ( Amer) > 60 Est GFR (Non-Af Amer) > 60 Random Glucose 105 Calcium 8.4 L Assessment & Plan - Assessment and Plan (Free Text) Assessment: Patient is a 42yo male with PMHx significant for morbid obesity and HTN who was recently admitted to our facility for URI/CAP who presents with cough and left sided chest/abdominal pain -Left flank/lateral chest cellulitis Plan: -Recommend empiric antibiotic coverage -Surgical evaluation -Monitor blood work -No acute gastrointestinal issues at this time -Weight loss/exercise/dietary and lifestyle modifications - Date & Time Date: 11/15/17 Time: 06:50 <Chester Luo - Last Filed: 11/15/17 14:51> Meds - Medications Medications: Current Medications Albuterol (Ventolin Hfa 90 Mcg/Actuation (8 G)) 2 puff IH Q6 [facility] Last Admin: 11/15/17 12:58 Dose: 2 puff Enoxaparin Sodium (Lovenox) 40 mg SC DAILY [facility] Last Admin: 11/15/17 10:17 Dose: 40 mg Piperacillin Sod/Tazobactam Sod (Zosyn 3.375 In Ns 100ml) 100 mls @ 200 mls/hr IVPB Q8 [facility] Last Admin: 11/15/17 05:37 Dose: 200 mls/hr Losartan Potassium (Cozaar) 50 mg PO DAILY [facility] Last Admin: 11/15/17 10:16 Dose: 50 mg Pantoprazole Sodium (Protonix Ec Tab) 40 mg PO DAILY [facility] Last Admin: 11/15/17 10:17 Dose: 40 mg Fluticasone/Salmeterol (Advair Diskus 250/50) 1 puff INH RQ12 [facility] Last Admin: 11/15/17 10:32 Dose: 1 inhaler Results - Vital Signs Recent Vital Signs: Last Vital Signs Temp 98.1 F 11/15/17 08:10 Pulse 85 11/15/17 08:10 Resp 20 11/15/17 08:10 BP 110/74 11/15/17 08:10 Pulse Ox 97 11/15/17 08:10 - Labs Result Diagrams: 11/14/17 21:05 11/14/17 21:05 Labs: Laboratory Results - last 24 hr 11/14/17 11/14/17 21:05 21:05 WBC 11.9 H D RBC 4.08 L Hgb 10.7 L Hct 32.8 L MCV 80.4 MCH 26.4 L MCHC 32.8 L RDW 15.4 H Plt Count 223 D MPV 7.3 Neut % (Auto) 70.3 Lymph % (Auto) 19.8 L [place] % (Auto) 6.1 Eos % (Auto) 3.0 Baso % (Auto) 0.8 Neut # (Auto) 8.4 H Lymph # (Auto) 2.4 [place] # (Auto) 0.7 Eos # (Auto) 0.4 Baso # (Auto) 0.1 Sodium 139 Potassium 4.0 Chloride 103 Carbon Dioxide 29 Anion Gap 11 BUN 11 Creatinine 1.0 Est GFR ( Amer) > 60 Est GFR (Non-Af Amer) > 60 Random Glucose 105 Calcium 8.4 L Attending/Attestation - Attestation I have personally seen and examined this patient.: Yes I have fully participated in the care of the patient.: Yes I have reviewed all pertinent clinical information: Yes Notes (Text): 11/15/17 14:50 42 year old male with morbid obesity admitted with left sided abdominal cellulitis. Recommend IV antibiotics, ID and surgical evaluation. Will sign off.
[2017-11-15] MEDS: Enoxaparin 40 mg Syringe SC SCH (10:17)
[2017-11-15] MEDS: Pantoprazole 40 mg EC Tab PO SCH (10:17)
[2017-11-15] MEDS: Fluticasone-Salmeterol 250-50mcg Diskus INH SCH ×2 (10:32→21:00)
--- NOTE | 2017-11-15 17:52 | CP.PCM.HP ---
Past Patient History - Infectious Disease Hx of Infectious Diseases: None - Past Medical History & Family History Past Medical History?: No - Past Social History Smoking Status: Light Smoker < 10 Cigarettes Daily - CARDIAC Hx Hypertension: Yes - ENDOCRINE/METABOLIC Other/Comment: Obesity as per patient - MUSCULOSKELETAL/RHEUMATOLOGICAL Hx Falls: No - PSYCHIATRIC Hx Depression: Yes Hx Substance Use: Yes - SURGICAL HISTORY Hx Surgeries: No - ANESTHESIA Hx Anesthesia: No Hx Anesthesia Reactions: No Hx Malignant Hyperthermia: No Meds Allergies/Adverse Reactions: Allergies Allergy/AdvReac Type Severity Reaction Status Date / Time No Known Allergies Allergy Verified 11/14/17 19:09 Physical Exam - Constitutional Appears: Well - Head Exam Head Exam: ATRAUMATIC, NORMAL INSPECTION, NORMOCEPHALIC - Eye Exam Eye Exam: EOMI, Normal appearance, PERRL Pupil Exam: NORMAL ACCOMODATION, PERRL - ENT Exam ENT Exam: Mucous Membranes Moist, Normal Exam - Neck Exam Neck exam: Positive for: Normal Inspection - Respiratory Exam Respiratory Exam: Decreased Breath Sounds - Cardiovascular Exam Cardiovascular Exam: REGULAR RHYTHM, +S1, +S2 - GI/Abdominal Exam GI & Abdominal Exam: Diminished Bowel Sounds, Soft - Rectal Exam Rectal Exam: Deferred Results - Vital Signs Recent Vital Signs: Last Vital Signs Temp 98.1 F 11/15/17 08:10 Pulse 99 H 11/15/17 15:15 Resp 18 11/15/17 15:15 BP 133/80 11/15/17 15:15 Pulse Ox 97 11/15/17 15:15 - Labs Result Diagrams: 11/14/17 21:05 11/14/17 21:05 Labs: Laboratory Results - last 24 hr 11/14/17 11/14/17 21:05 21:05 WBC 11.9 H D RBC 4.08 L Hgb 10.7 L Hct 32.8 L MCV 80.4 MCH 26.4 L MCHC 32.8 L RDW 15.4 H Plt Count 223 D MPV 7.3 Neut % (Auto) 70.3 Lymph % (Auto) 19.8 L [place] % (Auto) 6.1 Eos % (Auto) 3.0 Baso % (Auto) 0.8 Neut # (Auto) 8.4 H Lymph # (Auto) 2.4 [place] # (Auto) 0.7 Eos # (Auto) 0.4 Baso # (Auto) 0.1 Sodium 139 Potassium 4.0 Chloride 103 Carbon Dioxide 29 Anion Gap 11 BUN 11 Creatinine 1.0 Est GFR ( Amer) > 60 Est GFR (Non-Af Amer) > 60 Random Glucose 105 Calcium 8.4 L
--- NOTE | 2017-11-15 18:44 | CP.PCM.CON ---
<Gualberto Farfan - Last Filed: 11/15/17 18:44> History of Present Illness - History of Present Illness History of Present Illness: General Surgery- Dr. New 42M w/ relevant pmhx of morbid obesity, HTN was admitted to [facility] ED for cough and abd pain that began 2 weeks ago. Pt was having a non-productive cough w/ deep inspiration. Surgery was consulted for abdominal pain. CT in the ED shows fluid collection consistent w/ cellulitis. Tender to touch. Denies Nausea, vomiting, fevers, chills, changes in urinary/bowel habits, unexplained weight gain/loss PMH: stated above PSH: denies ALL: NKDA SocialHx: tobacco use for >30 years, recreational ETOH and Marijuana use Review of Systems - Review of Systems All systems: reviewed and no additional remarkable complaints except - Constitutional Constitutional: As Per HPI Past Patient History - Infectious Disease Hx of Infectious Diseases: None - Past Medical History & Family History Past Medical History?: No - Past Social History Smoking Status: Light Smoker < 10 Cigarettes Daily - CARDIAC Hx Hypertension: Yes - ENDOCRINE/METABOLIC Other/Comment: Obesity as per patient - MUSCULOSKELETAL/RHEUMATOLOGICAL Hx Falls: No - PSYCHIATRIC Hx Depression: Yes Hx Substance Use: Yes - SURGICAL HISTORY Hx Surgeries: No - ANESTHESIA Hx Anesthesia: No Hx Anesthesia Reactions: No Hx Malignant Hyperthermia: No Meds Allergies/Adverse Reactions: Allergies Allergy/AdvReac Type Severity Reaction Status Date / Time No Known Allergies Allergy Verified 11/14/17 19:09 - Medications Medications: Current Medications Albuterol (Ventolin Hfa 90 Mcg/Actuation (8 G)) 2 puff IH Q6 [facility] Last Admin: 11/15/17 12:58 Dose: 2 puff Enoxaparin Sodium (Lovenox) 40 mg SC DAILY [facility] Last Admin: 11/15/17 10:17 Dose: 40 mg Piperacillin Sod/Tazobactam Sod (Zosyn 3.375 In Ns 100ml) 100 mls @ 200 mls/hr IVPB Q8 [facility] Last Admin: 11/15/17 15:16 Dose: 200 mls/hr Losartan Potassium (Cozaar) 50 mg PO DAILY [facility] Last Admin: 11/15/17 10:16 Dose: 50 mg Pantoprazole Sodium (Protonix Ec Tab) 40 mg PO DAILY [facility] Last Admin: 11/15/17 10:17 Dose: 40 mg Fluticasone/Salmeterol (Advair Diskus 250/50) 1 puff INH RQ12 [facility] Last Admin: 11/15/17 10:32 Dose: 1 inhaler Physical Exam - Constitutional Appears: Non-toxic, No Acute Distress - Head Exam Head Exam: ATRAUMATIC - Eye Exam Eye Exam: EOMI. absent: Scleral icterus - ENT Exam ENT Exam: Mucous Membranes Moist - Respiratory Exam Respiratory Exam: NORMAL BREATHING PATTERN. absent: Accessory Muscle Use, Respiratory Distress - Cardiovascular Exam Cardiovascular Exam: +S1, +S2. absent: Bradycardia, Tachycardia - GI/Abdominal Exam GI & Abdominal Exam: Soft, Tenderness. absent: Guarding, Rigid Additional comments: Erythema and tenderness in LUQ - Neurological Exam Neurological exam: Alert, Oriented x3 - Skin Skin Exam: Intact, Warm Results - Vital Signs Recent Vital Signs: Last Vital Signs Temp 98.1 F 11/15/17 08:10 Pulse 99 H 11/15/17 15:15 Resp 18 11/15/17 15:15 BP 133/80 11/15/17 15:15 Pulse Ox 97 11/15/17 17:24 - Labs Result Diagrams: 11/14/17 21:05 11/14/17 21:05 Labs: Laboratory Results - last 24 hr 11/14/17 11/14/17 21:05 21:05 WBC 11.9 H D RBC 4.08 L Hgb 10.7 L Hct 32.8 L MCV 80.4 MCH 26.4 L MCHC 32.8 L RDW 15.4 H Plt Count 223 D MPV 7.3 Neut % (Auto) 70.3 Lymph % (Auto) 19.8 L [place] % (Auto) 6.1 Eos % (Auto) 3.0 Baso % (Auto) 0.8 Neut # (Auto) 8.4 H Lymph # (Auto) 2.4 [place] # (Auto) 0.7 Eos # (Auto) 0.4 Baso # (Auto) 0.1 Sodium 139 Potassium 4.0 Chloride 103 Carbon Dioxide 29 Anion Gap 11 BUN 11 Creatinine 1.0 Est GFR ( Amer) > 60 Est GFR (Non-Af Amer) > 60 Random Glucose 105 Calcium 8.4 L Assessment & Plan - Assessment and Plan (Free Text) Assessment: 42M w/ abdominal wall cellulitis Plan: - warm compresses - abx - No acute surgical intervention at this time - will follow for now - discussed w/ Dr. New surgical attending PGY1 <Andres New - Last Filed: 11/17/17 14:59> Meds - Medications Medications: Current Medications Albuterol (Ventolin Hfa 90 Mcg/Actuation (8 G)) 2 puff IH RQ6 PRN PRN Reason: SOB Enoxaparin Sodium (Lovenox) 40 mg SC DAILY [facility] Last Admin: 11/17/17 10:01 Dose: 40 mg Guaifenesin/Dextromethorphan (Robitussin Dm) 15 ml PO Q6H PRN PRN Reason: Cough Last Admin: 11/17/17 05:59 Dose: 15 ml Piperacillin Sod/Tazobactam Sod (Zosyn 3.375 In Ns 100ml) 100 mls @ 200 mls/hr IVPB Q8 [facility] Last Admin: 11/17/17 14:18 Dose: 200 mls/hr Vancomycin HCl 1,250 mg/ (Sodium Chloride) 250 mls @ 166.6 mls/hr IVPB Q12H [facility] Last Admin: 11/17/17 02:32 Dose: 166.6 mls/hr Losartan Potassium (Cozaar) 50 mg PO DAILY [facility] Last Admin: 11/17/17 10:01 Dose: 50 mg Pantoprazole Sodium (Protonix Ec Tab) 40 mg PO DAILY [facility] Last Admin: 11/17/17 10:01 Dose: 40 mg Fluticasone/Salmeterol (Advair Diskus 250/50) 1 puff INH RQ12 [facility] Last Admin: 11/17/17 08:51 Dose: 1 inhaler Results - Vital Signs Recent Vital Signs: Last Vital Signs Temp 97.5 F L 11/17/17 08:00 Pulse 94 H 11/17/17 08:00 Resp 20 11/17/17 08:00 BP 149/76 11/17/17 08:00 Pulse Ox 96 11/17/17 08:00 - Labs Result Diagrams: 11/17/17 07:47 11/17/17 07:47 Labs: Laboratory Results - last 24 hr 11/17/17 11/17/17 07:47 07:47 WBC 7.2 RBC 3.68 L Hgb 10.1 L Hct 29.6 L MCV 80.4 MCH 27.6 MCHC 34.3 RDW 15.4 H Plt Count 211 MPV 7.7 Neut % (Auto) 65.4 Lymph % (Auto) 21.6 [place] % (Auto) 5.5 Eos % (Auto) 7.0 H Baso % (Auto) 0.5 Neut # (Auto) 4.7 Lymph # (Auto) 1.6 [place] # (Auto) 0.4 Eos # (Auto) 0.5 Baso # (Auto) 0.0 Sodium 142 Potassium 3.8 Chloride 104 Carbon Dioxide 28 Anion Gap 14 BUN 9 Creatinine 0.9 Est GFR ( Amer) > 60 Est GFR (Non-Af Amer) > 60 Random Glucose 93 Calcium 7.7 L Total Bilirubin 0.6 AST 20 ALT 26 Alkaline Phosphatase 73 Total Protein 6.3 Albumin 3.1 L Globulin 3.2 Albumin/Globulin Ratio 1.0 Attending/Attestation - Attestation I have personally seen and examined this patient.: Yes I have fully participated in the care of the patient.: Yes I have reviewed all pertinent clinical information: Yes Notes (Text): Pt was seen and examined at beside Agree with above note and assessment Pt with LUQ pain and tenderness Pt is morbidly obese Labs and radiology reviewed Ass: Abdominal wall cellulitis Plan : No need for surgical intervention at present. Consent IV antibiotics C.w current ms Plan d.w pt in detail Risk and benefit explained in detail.
--- NOTE | 2017-11-15 21:53 | CP.PCM.CON ---
History of Present Illness - History of Present Illness History of Present Illness: INFECTIOUS DISEASE CONSULT; HPI; 42-year-old morbidly obese male 450 pounds, with history of hypertension, who was recently admitted to [facility] for acute bronchitis/CAP and treated with IV and by mouth antibiotics and discharged on 11/01/17 now returns back complaining of cough and bronchitis which has not resolved. He also complains off pain left chest wall and flank on coughing. In the ER patient underwent CT of the abdomen and pelvis with IV contrast which revealed a large fluid collection in the left lateral abdominal wall and subcutaneous fat consistent with cellulitis. Patient also admits that the area is warm and tender to touch. Patient denies any hemoptysis or shortness of breath. Patient wants to have something for his cough as he gets pleuritic chest pain each time he coughs. Patient denies any nausea vomiting or fever and chills. Patient states he has a productive cough with whitish phlegm. PATIENT PRESENTLY ON iv ZOSYN 3.375 EVERY 8 HOURLY. Infectious disease consultation requested by PMD for cellulitis left lateral abdominal wall. PMHx: HTN,BRONCHITIS, MORBID OBESITY PSHx: Discussed with patient and denies surgical history FHx: Discussed with patient and denies significant family history Social: +tobacco user daily for 30+ years, occasional EtOH use, marijuana use ALLERGY; NKA, MEDS; PER CHART, Review of Systems - Constitutional Constitutional: absent: Chills, Fever - EENT Nose/Mouth/Throat: absent: Mouth Lesions - Cardiovascular Cardiovascular: Chest Pain (LEFT-SIDED PLEURITIC CHEST PAIN ON COUGHING.). absent: Palpitations, Pedal Edema - Respiratory Respiratory: Cough, Excessive Mucous Production. absent: Hemoptysis - Gastrointestinal Gastrointestinal: Abdominal Pain (LEFT LATERAL WALL ON PALPATION AND COUGHING.) . absent: Change in Bowel Habits, Constipation, Diarrhea, Melena - Genitourinary Genitourinary: absent: Dysuria - Neurological Neurological: absent: Dizziness, Headaches - Endocrine Endocrine: As Per HPI - Hematologic/Lymphatic Hematologic: As Per HPI. absent: Lymphadenopathy Past Patient History - Infectious Disease Hx of Infectious Diseases: None - Past Medical History & Family History Past Medical History?: No - Past Social History Smoking Status: Light Smoker < 10 Cigarettes Daily - CARDIAC Hx Hypertension: Yes - ENDOCRINE/METABOLIC Other/Comment: Obesity as per patient - MUSCULOSKELETAL/RHEUMATOLOGICAL Hx Falls: No - PSYCHIATRIC Hx Depression: Yes Hx Substance Use: Yes - SURGICAL HISTORY Hx Surgeries: No - ANESTHESIA Hx Anesthesia: No Hx Anesthesia Reactions: No Hx Malignant Hyperthermia: No Meds Allergies/Adverse Reactions: Allergies Allergy/AdvReac Type Severity Reaction Status Date / Time No Known Allergies Allergy Verified 11/14/17 19:09 - Medications Medications: Current Medications Albuterol (Ventolin Hfa 90 Mcg/Actuation (8 G)) 2 puff IH Q6 [facility] Last Admin: 11/15/17 12:58 Dose: 2 puff Enoxaparin Sodium (Lovenox) 40 mg SC DAILY [facility] Last Admin: 11/15/17 10:17 Dose: 40 mg Guaifenesin/Dextromethorphan (Robitussin Dm) 15 ml PO Q6H PRN PRN Reason: Cough Piperacillin Sod/Tazobactam Sod (Zosyn 3.375 In Ns 100ml) 100 mls @ 200 mls/hr IVPB Q8 [facility] Last Admin: 11/15/17 15:16 Dose: 200 mls/hr Losartan Potassium (Cozaar) 50 mg PO DAILY [facility] Last Admin: 11/15/17 10:16 Dose: 50 mg Pantoprazole Sodium (Protonix Ec Tab) 40 mg PO DAILY [facility] Last Admin: 11/15/17 10:17 Dose: 40 mg Fluticasone/Salmeterol (Advair Diskus 250/50) 1 puff INH RQ12 [facility] Last Admin: 11/15/17 10:32 Dose: 1 inhaler Physical Exam - Constitutional Appears: No Acute Distress Additional comments: MORBIDLY OBESE. - Head Exam Head Exam: NORMAL INSPECTION - Eye Exam Eye Exam: EOMI, PERRL. absent: Scleral icterus - ENT Exam ENT Exam: Normal Oropharynx - Neck Exam Neck exam: Positive for: Normal Inspection - Respiratory Exam Respiratory Exam: Chest Wall Tenderness, Decreased Breath Sounds, NORMAL BREATHING PATTERN - Cardiovascular Exam Cardiovascular Exam: REGULAR RHYTHM, +S1, +S2 - GI/Abdominal Exam GI & Abdominal Exam: Normal Bowel Sounds, Soft, Tenderness (ON PALPATION LATERAL WALL. wARM TO TOUCH). absent: Guarding - Extremities Exam Extremities exam: Positive for: pedal edema (1+ EDEMA), pedal pulses present. Negative for: calf tenderness - Neurological Exam Neurological exam: Alert, CN II-XII Intact, Normal Gait, Oriented x3, Reflexes Normal - Psychiatric Exam Psychiatric exam: Normal Mood - Skin Skin Exam: Normal Color, Warm ( LEFT ABDOMINAL WALL LATERALLY WARM AND TTP.) Results - Vital Signs Recent Vital Signs: Last Vital Signs Temp 98.2 F 11/15/17 21:24 Pulse 105 H 11/15/17 21:24 Resp 16 11/15/17 20:21 BP 131/72 11/15/17 21:24 Pulse Ox 22 L 11/15/17 21:24 - Labs Result Diagrams: 11/14/17 21:05 11/14/17 21:05 - Imaging and Cardiology CT scan - abdomen WITH iv CONTRAST Status: Report reviewed by me Assessment & Plan (1) Left upper quadrant abdominal swelling Assessment and Plan: PATIENT HAS EXTENSIVE FLUID IN THE LEFT LATERAL ABDOMINAL WALL AND SUBCUTANEOUS FAT ? S/C HGE VS STSI-CELLULITS. SOURCE OF FLUID COLLECTION NOT CLEAR. AGREE WITH TREATMENT WITH IV ABX IV ZOSYN INCREASED DOSE TO 4.5 G EVERY 8 HOURLY 11/15/17 ADD IV VANCOMYCIN 1250MG IV Q 12HRLY FOR MRSA/STREPT COVERAGE 11/16/17 F/U VANCO TROUGH PRIOR TO 4TH DOSE AND KEEP BETWEEN 10 AND 20. CONSIDER ASPIRATION OF THE FLUID COLLECTION RULE OUT OCCULT ABSCESS. Status: Acute (2) Bronchitis Assessment and Plan: SPUTUM GRAM STAIN AND CULTURE MRSA -SCREENING ESR. CRP. CONTINUE iv ANTIBIOTICS. Status: Acute (3) Morbid obesity Assessment and Plan: ENDO -EVALUATION Status: Acute
[2017-11-15] MEDS: guaiFENesin DM 100 mg-10 mg/5 ml UD PO PRN (22:36)
[2017-11-16] MEDS: Albuterol HFA 90 mcg/actuation (8 g) IH SCH ×2 (02:16→10:06)
[2017-11-16] MEDS: Piperacillin/Tazobact 3.375 gm 100 ML IVPB SCH ×3 (05:45→21:40)
--- NOTE | 2017-11-16 09:25 | RAD ---
Chest x-ray two views History: Pneumonia. Comparison: 10/27/2017 Findings: Patchy consolidative changes in a somewhat linear configuration seen at lung bases suggestive for atelectasis and or infiltrate. Venous congestion. Right hilar prominence. Cardiomegaly. Degenerative changes in the spine. Impression: Patchy consolidative changes in a somewhat linear configuration seen at lung bases suggestive for atelectasis and or infiltrate. Venous congestion. Right hilar prominence. Cardiomegaly.
[2017-11-16] MEDS: Pantoprazole 40 mg EC Tab PO SCH (09:59)
[2017-11-16] MEDS: Enoxaparin 40 mg Syringe SC SCH (10:00)
[2017-11-16] MEDS: Fluticasone-Salmeterol 250-50mcg Diskus INH SCH ×2 (10:04→20:24)
--- NOTE | 2017-11-16 10:33 | CP.PCM.PN ---
<Dolly Iniguez - Last Filed: 11/16/17 10:29> Subjective - Date & Time of Evaluation Date of Evaluation: 11/16/17 Time of Evaluation: 07:00 - Subjective Subjective: Surgery: Dr. New Pt seen and examined. No acute overnight events. States he's feeling ok. Continues to have some pain around L lateral chest wall cellulitis. Tolerating a diet and ambulating. Denies other complaints at this time. Denies F/C. Objective - Vital Signs/Intake and Output Vital Signs (last 24 hours): Temp Pulse Resp BP Pulse Ox 97.3 F L 85 20 128/81 95 11/16/17 08:58 11/16/17 08:58 11/16/17 08:58 11/16/17 08:58 11/16/17 08:58 Intake and Output: 11/16/17 11/16/17 06:59 18:59 Intake Total 400 Balance 400 - Medications Medications: Current Medications Albuterol (Ventolin Hfa 90 Mcg/Actuation (8 G)) 2 puff IH Q6 [facility] Last Admin: 11/16/17 10:06 Dose: Not Given Enoxaparin Sodium (Lovenox) 40 mg SC DAILY [facility] Last Admin: 11/16/17 10:00 Dose: 40 mg Guaifenesin/Dextromethorphan (Robitussin Dm) 15 ml PO Q6H PRN PRN Reason: Cough Last Admin: 11/15/17 22:36 Dose: 15 ml Piperacillin Sod/Tazobactam Sod (Zosyn 3.375 In Ns 100ml) 100 mls @ 200 mls/hr IVPB Q8 [facility] Last Admin: 11/16/17 05:45 Dose: 200 mls/hr Vancomycin HCl 1,250 mg/ (Sodium Chloride) 250 mls @ 166.6 mls/hr IVPB Q12H [facility] Last Admin: 11/16/17 03:45 Dose: 166.6 mls/hr Losartan Potassium (Cozaar) 50 mg PO DAILY [facility] Last Admin: 11/16/17 09:59 Dose: 50 mg Pantoprazole Sodium (Protonix Ec Tab) 40 mg PO DAILY [facility] Last Admin: 11/16/17 09:59 Dose: 40 mg Fluticasone/Salmeterol (Advair Diskus 250/50) 1 puff INH RQ12 [facility] Last Admin: 11/16/17 10:04 Dose: 1 inhaler - Labs Labs: 11/14/17 21:05 11/14/17 21:05 - Constitutional Appears: Well, No Acute Distress - Head Exam Head Exam: ATRAUMATIC, NORMOCEPHALIC - Eye Exam Eye Exam: Normal appearance - ENT Exam ENT Exam: Mucous Membranes Moist - Respiratory Exam Respiratory Exam: NORMAL BREATHING PATTERN - Cardiovascular Exam Cardiovascular Exam: RRR Additional comments: left lateral chest wall cellulitis, no fluctuance noted - Neurological Exam Neurological Exam: Alert, Awake, Oriented x3 - Skin Skin Exam: Dry, Warm Assessment and Plan - Assessment and Plan (Free Text) Assessment: 42M with Left lateral chest wall cellulitis Plan: - cont warm compresses - no drainable collection at this time - currently no surgical intervention needed - d/w Dr. New who agrees with above Dolly Iniguez, PGY-3 Surgery <Andres New - Last Filed: 11/17/17 15:02> Objective - Vital Signs/Intake and Output Vital Signs (last 24 hours): Temp Pulse Resp BP Pulse Ox 97.5 F L 94 H 20 149/76 96 11/17/17 08:00 11/17/17 08:00 11/17/17 08:00 11/17/17 08:00 11/17/17 08:00 Intake and Output: 11/17/17 11/17/17 06:59 18:59 Intake Total 400 850 Balance 400 850 - Medications Medications: Current Medications Albuterol (Ventolin Hfa 90 Mcg/Actuation (8 G)) 2 puff IH RQ6 PRN PRN Reason: SOB Enoxaparin Sodium (Lovenox) 40 mg SC DAILY [facility] Last Admin: 11/17/17 10:01 Dose: 40 mg Guaifenesin/Dextromethorphan (Robitussin Dm) 15 ml PO Q6H PRN PRN Reason: Cough Last Admin: 11/17/17 05:59 Dose: 15 ml Piperacillin Sod/Tazobactam Sod (Zosyn 3.375 In Ns 100ml) 100 mls @ 200 mls/hr IVPB Q8 [facility] Last Admin: 11/17/17 14:18 Dose: 200 mls/hr Vancomycin HCl 1,250 mg/ (Sodium Chloride) 250 mls @ 166.6 mls/hr IVPB Q12H [facility] Last Admin: 11/17/17 02:32 Dose: 166.6 mls/hr Losartan Potassium (Cozaar) 50 mg PO DAILY [facility] Last Admin: 11/17/17 10:01 Dose: 50 mg Pantoprazole Sodium (Protonix Ec Tab) 40 mg PO DAILY [facility] Last Admin: 11/17/17 10:01 Dose: 40 mg Fluticasone/Salmeterol (Advair Diskus 250/50) 1 puff INH RQ12 [facility] Last Admin: 11/17/17 08:51 Dose: 1 inhaler - Labs Labs: 11/17/17 07:47 11/17/17 07:47 Attending/Attestation - Attestation I have personally seen and examined this patient.: Yes I have fully participated in the care of the patient.: Yes I have reviewed all pertinent clinical information, including history, physical exam and plan: Yes Notes (Text): Pt was seen and examined at beside Agree with above note and assessment Pt is improving clinically DC plan No sugical intervention required f.u as out pt PO antibiotics Plan d.w pt in detail Risk and benefit explained in detail.
--- NOTE | 2017-11-16 13:56 | CP.PCM.PN ---
Subjective - Date & Time of Evaluation Date of Evaluation: 11/16/17 Time of Evaluation: 08:40 - Subjective Subjective: clinically same Objective - Vital Signs/Intake and Output Vital Signs (last 24 hours): Temp Pulse Resp BP Pulse Ox 97.3 F L 85 20 128/81 95 11/16/17 08:58 11/16/17 08:58 11/16/17 08:58 11/16/17 08:58 11/16/17 08:58 Intake and Output: 11/16/17 11/16/17 06:59 18:59 Intake Total 400 Balance 400 - Medications Medications: Current Medications Albuterol (Ventolin Hfa 90 Mcg/Actuation (8 G)) 2 puff IH Q6 [facility] Last Admin: 11/16/17 10:06 Dose: Not Given Enoxaparin Sodium (Lovenox) 40 mg SC DAILY [facility] Last Admin: 11/16/17 10:00 Dose: 40 mg Guaifenesin/Dextromethorphan (Robitussin Dm) 15 ml PO Q6H PRN PRN Reason: Cough Last Admin: 11/15/17 22:36 Dose: 15 ml Piperacillin Sod/Tazobactam Sod (Zosyn 3.375 In Ns 100ml) 100 mls @ 200 mls/hr IVPB Q8 [facility] Last Admin: 11/16/17 05:45 Dose: 200 mls/hr Vancomycin HCl 1,250 mg/ (Sodium Chloride) 250 mls @ 166.6 mls/hr IVPB Q12H [facility] Last Admin: 11/16/17 03:45 Dose: 166.6 mls/hr Losartan Potassium (Cozaar) 50 mg PO DAILY [facility] Last Admin: 11/16/17 09:59 Dose: 50 mg Pantoprazole Sodium (Protonix Ec Tab) 40 mg PO DAILY [facility] Last Admin: 11/16/17 09:59 Dose: 40 mg Fluticasone/Salmeterol (Advair Diskus 250/50) 1 puff INH RQ12 [facility] Last Admin: 11/16/17 10:04 Dose: 1 inhaler - Labs Labs: 11/14/17 21:05 11/14/17 21:05 - Constitutional Appears: Well - Head Exam Head Exam: ATRAUMATIC, NORMAL INSPECTION, NORMOCEPHALIC - Eye Exam Eye Exam: EOMI, Normal appearance, PERRL Pupil Exam: NORMAL ACCOMODATION, PERRL - ENT Exam ENT Exam: Mucous Membranes Moist, Normal Exam - Neck Exam Neck Exam: Full ROM, Normal Inspection. absent: Lymphadenopathy - Respiratory Exam Respiratory Exam: Decreased Breath Sounds - Cardiovascular Exam Cardiovascular Exam: REGULAR RHYTHM, +S1, +S2 - GI/Abdominal Exam GI & Abdominal Exam: Soft, Diminished Bowel Sounds - Rectal Exam Rectal Exam: Deferred
[2017-11-16] MEDS: guaiFENesin DM 100 mg-10 mg/5 ml UD PO PRN ×2 (14:52→21:40)
--- NOTE | 2017-11-16 23:39 | CP.PCM.PN ---
Subjective - Date & Time of Evaluation Date of Evaluation: 11/16/17 Time of Evaluation: 23:39 - Subjective Subjective: afebrile, States cough is slightly better. less painful left lateral abdominal wall. Seen by surgery. Follow-up noted. As per surgery patient to continue on IV antibiotics. labs reviewed; BLOOD CULTURES 2 SETS NEGATIVE GROWTH. Objective - Vital Signs/Intake and Output Vital Signs (last 24 hours): Temp Pulse Resp BP Pulse Ox 98 F 88 20 128/76 96 11/16/17 15:15 11/16/17 15:15 11/16/17 15:15 11/16/17 15:15 11/16/17 20:00 Intake and Output: 11/16/17 11/17/17 18:59 06:59 Intake Total 460 400 Balance 460 400 - Medications Medications: Current Medications Albuterol (Ventolin Hfa 90 Mcg/Actuation (8 G)) 2 puff IH RQ6 [facility] Enoxaparin Sodium (Lovenox) 40 mg SC DAILY [facility] Last Admin: 11/16/17 10:00 Dose: 40 mg Guaifenesin/Dextromethorphan (Robitussin Dm) 15 ml PO Q6H PRN PRN Reason: Cough Last Admin: 11/16/17 21:40 Dose: 15 ml Piperacillin Sod/Tazobactam Sod (Zosyn 3.375 In Ns 100ml) 100 mls @ 200 mls/hr IVPB Q8 [facility] Last Admin: 11/16/17 21:40 Dose: 200 mls/hr Vancomycin HCl 1,250 mg/ (Sodium Chloride) 250 mls @ 166.6 mls/hr IVPB Q12H [facility] Last Admin: 11/16/17 15:55 Dose: 166.6 mls/hr Losartan Potassium (Cozaar) 50 mg PO DAILY [facility] Last Admin: 11/16/17 09:59 Dose: 50 mg Pantoprazole Sodium (Protonix Ec Tab) 40 mg PO DAILY [facility] Last Admin: 11/16/17 09:59 Dose: 40 mg Fluticasone/Salmeterol (Advair Diskus 250/50) 1 puff INH RQ12 [facility] Last Admin: 11/16/17 20:24 Dose: 1 inhaler - Labs Labs: 11/14/17 21:05 11/14/17 21:05 - Constitutional Appears: No Acute Distress - Head Exam Head Exam: NORMAL INSPECTION - Eye Exam Eye Exam: EOMI, PERRL - ENT Exam ENT Exam: Normal Oropharynx - Neck Exam Neck Exam: Normal Inspection - Respiratory Exam Respiratory Exam: Decreased Breath Sounds, Prolonged Expiratory Phase - Cardiovascular Exam Cardiovascular Exam: REGULAR RHYTHM, +S1, +S2 - GI/Abdominal Exam GI & Abdominal Exam: Tenderness, Normal Bowel Sounds (left lateral chest wall induration and warmth present. Morbidly obese skinfolds.) - Extremities Exam Extremities Exam: Normal Capillary Refill, Pedal Edema. absent: Calf Tenderness - Back Exam Back Exam: NORMAL INSPECTION. absent: vertebral tenderness - Neurological Exam Neurological Exam: Awake, CN II-XII Intact, Normal Gait, Oriented x3, Reflexes Normal - Psychiatric Exam Psychiatric exam: Normal Mood - Skin Skin Exam: Normal Color, Warm Assessment and Plan (1) Left upper quadrant abdominal swelling Assessment & Plan: PATIENT HAS EXTENSIVE FLUID IN THE LEFT LATERAL ABDOMINAL WALL AND SUBCUTANEOUS FAT ? S/C HGE VS STSI-CELLULITS. SOURCE OF FLUID COLLECTION NOT CLEAR. AGREE WITH TREATMENT WITH IV ABX IV ZOSYN INCREASED DOSE TO 4.5 G EVERY 8 HOURLY 11/15/17 ADD IV VANCOMYCIN 1250MG IV Q 12HRLY FOR MRSA/STREPT COVERAGE 11/16/17 F/U VANCO TROUGH PRIOR TO 4TH DOSE AND KEEP BETWEEN 10 AND 20. SURGERY ON BOARD. pRESENTLY RECOMMENDS CONTINUING ANTIBIOTICS. NO SURGICAL INTERVENTION PER SURGERY. WE'LL CONTINUE TO MONITOR CLINICALLY. Status: Acute (2) Bronchitis Assessment & Plan: LESS COUGH. COUGH SUPPRESSANTS. FOLLOW-UP SPUTUM CULTURES. pATIENT ON iv zOSYN/iv VANCOMYCIN. Status: Acute (3) Morbid obesity Status: Acute
[2017-11-17] MEDS ORDERED: Albuterol HFA 90 mcg/actuation (8 g) IH SCH
[2017-11-17] MEDS ORDERED: Albuterol HFA 90 mcg/actuation (8 g) IH PRN (02:00)
[2017-11-17] MEDS: Piperacillin/Tazobact 3.375 gm 100 ML IVPB SCH ×3 (05:52→21:27)
[2017-11-17] MEDS: guaiFENesin DM 100 mg-10 mg/5 ml UD PO PRN ×3 (05:59→21:46)
[2017-11-17 08:00] LABS: BASO % 0.5 % (0.0-2.0); EOS # 0.5 K/uL (0.0-0.7); HEMOGLOBIN 10.1 g/dL (12.0-18.0); LYMPH # 1.6 K/uL (1.0-4.3); LYMPH % 21.6 % (20.0-40.0); MEAN CELL VOLUME 80.4 fL (80.0-94.0); MEAN CORPUSCULAR HEMOGLOBIN 27.6 pg (27.0-31.0); MEAN CORPUSCULAR HGB CONC 34.3 g/dL (33.0-37.0); MEAN PLATELET VOLUME 7.7 fL (7.2-11.7); MONO # 0.4 K/uL (0.0-0.8); MONO % 5.5 % (0.0-10.0); NEUT # 4.7 K/uL (1.8-7.0); NEUT % 65.4 % (50.0-75.0); RBC 3.68 Mil/uL (4.40-5.90); RED CELL DISTRIBUTION WIDTH 15.4 % (11.5-14.5); WHITE BLOOD COUNT 7.2 K/uL (4.8-10.8)
[2017-11-17 08:12] LABS: ALBUMIN 3.1 g/dL (3.5-5.0); ALT/SGPT 26 U/L (21-72); AST/SGOT 20 U/L (17-59); BLOOD UREA NITROGEN 9 mg/dL (9-20); CALCIUM 7.7 mg/dl (8.6-10.4); GFR AFRICAN-AMERICAN > 60; GFR NON-AFRICAN AMERICAN > 60
[2017-11-17] MEDS: Fluticasone-Salmeterol 250-50mcg Diskus INH SCH ×2 (08:51→19:16)
--- NOTE | 2017-11-17 09:28 | CP.PCM.PN ---
Subjective - Date & Time of Evaluation Date of Evaluation: 11/17/17 Time of Evaluation: 07:00 - Subjective Subjective: PGY2 Resident - Medicine Progress Note Patient seen and examined at bedside. No acute distress. No overnight events. Patient reports continued L sided chest wall discomfort with coughing. His last BM was yesterday and normal. He denies f/c, n/v, d/c, or any additional complaints. Objective - Vital Signs/Intake and Output Vital Signs (last 24 hours): Temp Pulse Resp BP Pulse Ox 97.5 F L 94 H 20 149/76 96 11/17/17 08:00 11/17/17 08:00 11/17/17 08:00 11/17/17 08:00 11/17/17 08:00 Intake and Output: 11/17/17 11/17/17 06:59 18:59 Intake Total 400 850 Balance 400 850 - Medications Medications: Current Medications Albuterol (Ventolin Hfa 90 Mcg/Actuation (8 G)) 2 puff IH RQ6 PRN PRN Reason: SOB Enoxaparin Sodium (Lovenox) 40 mg SC DAILY [facility] Last Admin: 11/16/17 10:00 Dose: 40 mg Guaifenesin/Dextromethorphan (Robitussin Dm) 15 ml PO Q6H PRN PRN Reason: Cough Last Admin: 11/17/17 05:59 Dose: 15 ml Piperacillin Sod/Tazobactam Sod (Zosyn 3.375 In Ns 100ml) 100 mls @ 200 mls/hr IVPB Q8 [facility] Last Admin: 11/17/17 05:52 Dose: 200 mls/hr Vancomycin HCl 1,250 mg/ (Sodium Chloride) 250 mls @ 166.6 mls/hr IVPB Q12H [facility] Last Admin: 11/17/17 02:32 Dose: 166.6 mls/hr Losartan Potassium (Cozaar) 50 mg PO DAILY [facility] Last Admin: 11/16/17 09:59 Dose: 50 mg Pantoprazole Sodium (Protonix Ec Tab) 40 mg PO DAILY [facility] Last Admin: 11/16/17 09:59 Dose: 40 mg Fluticasone/Salmeterol (Advair Diskus 250/50) 1 puff INH RQ12 [facility] Last Admin: 11/17/17 08:51 Dose: 1 inhaler - Labs Labs: 11/17/17 07:47 11/17/17 07:47 - Additional Findings Additional findings: - Constitutional Appears: No Acute Distress - Head Exam Head Exam: NORMAL INSPECTION - Eye Exam Eye Exam: EOMI, PERRL - ENT Exam ENT Exam: Normal Oropharynx - Neck Exam Neck Exam: Normal Inspection - Respiratory Exam Respiratory Exam: Decreased Breath Sounds, Prolonged Expiratory Phase - Cardiovascular Exam Cardiovascular Exam: REGULAR RHYTHM, +S1, +S2 - GI/Abdominal Exam GI & Abdominal Exam: Tenderness, Normal Bowel Sounds (left lateral chest wall induration and warmth present. Morbidly obese skinfolds.) - Extremities Exam Extremities Exam: Normal Capillary Refill, Pedal Edema. absent: Calf Tenderness - Back Exam Back Exam: NORMAL INSPECTION. absent: vertebral tenderness - Neurological Exam Neurological Exam: Awake, CN II-XII Intact, Normal Gait, Oriented x3, Reflexes Normal - Psychiatric Exam Psychiatric exam: Normal Mood - Skin Skin Exam: Normal Color, Warm Assessment and Plan - Assessment and Plan (Free Text) Assessment: 42M with Left lateral chest wall cellulitis Chest Wall Cellulitis -previously considered to be Left upper quadrant abdominal swelling -General surgery consult, Dr. New, f/u recs - cont warm compresses - no drainable collection at this time - currently no surgical intervention needed -ID consult, Dr. Rome, f/u recs f/u vanco trough prior to 4th dose. Maintain between 10-20. continue IV zosyn and vanco. - Abd/Pelv CT w/IV contrast - Extensive fluid in the left lateral abdominal wall subcutaneous fat. This is of uncertain etiology, but could be due to recent trauma, i.e., represent resolving subcutaneous hemorrhage. Soft tissue infection is not excluded. No soft tissue gas or abscess is seen, but note that the left abdominal wall soft tissues are not completely included on the scan. - Small to moderate left pleural effusion. - See full report. Bronchitis 3/2: cough improving; continue Robitussin Dm, albuterol, advair. f/u sputum culture continue IV zosyn and vanco. -CXR: atelectasis and/or infiltrate of lung bases. continue albuterol Continue Advair diskus 250/50 1puff Q12H HTN BP 149/76 Continue Losartan 50mg qD Prophylaxis SCDs Lovenox 40mg SC qD heart healthy diet Case discussed with attending. All medical management as per Dr. Leonides Todd.
[2017-11-17] MEDS: Enoxaparin 40 mg Syringe SC SCH (10:01)
[2017-11-17] MEDS: Pantoprazole 40 mg EC Tab PO SCH (10:01)
--- NOTE | 2017-11-17 16:59 | CP.PCM.PN ---
Subjective - Date & Time of Evaluation Date of Evaluation: 11/17/17 Time of Evaluation: 07:50 - Subjective Subjective: clinically same Objective - Vital Signs/Intake and Output Vital Signs (last 24 hours): Temp Pulse Resp BP Pulse Ox 98.4 F 89 20 143/83 97 11/17/17 16:21 11/17/17 16:21 11/17/17 16:21 11/17/17 16:21 11/17/17 16:21 Intake and Output: 11/17/17 11/17/17 06:59 18:59 Intake Total 400 1680 Balance 400 1680 - Medications Medications: Current Medications Albuterol (Ventolin Hfa 90 Mcg/Actuation (8 G)) 2 puff IH RQ6 PRN PRN Reason: SOB Enoxaparin Sodium (Lovenox) 40 mg SC DAILY [facility] Last Admin: 11/17/17 10:01 Dose: 40 mg Guaifenesin/Dextromethorphan (Robitussin Dm) 15 ml PO Q6H PRN PRN Reason: Cough Last Admin: 11/17/17 15:37 Dose: 15 ml Piperacillin Sod/Tazobactam Sod (Zosyn 3.375 In Ns 100ml) 100 mls @ 200 mls/hr IVPB Q8 [facility] Last Admin: 11/17/17 14:18 Dose: 200 mls/hr Vancomycin HCl 1,250 mg/ (Sodium Chloride) 250 mls @ 166.6 mls/hr IVPB Q12H [facility] Last Admin: 11/17/17 15:07 Dose: 166.6 mls/hr Losartan Potassium (Cozaar) 50 mg PO DAILY [facility] Last Admin: 11/17/17 10:01 Dose: 50 mg Pantoprazole Sodium (Protonix Ec Tab) 40 mg PO DAILY [facility] Last Admin: 11/17/17 10:01 Dose: 40 mg Fluticasone/Salmeterol (Advair Diskus 250/50) 1 puff INH RQ12 [facility] Last Admin: 11/17/17 08:51 Dose: 1 inhaler - Labs Labs: 11/17/17 07:47 11/17/17 07:47 - Constitutional Appears: Well - Head Exam Head Exam: ATRAUMATIC, NORMAL INSPECTION, NORMOCEPHALIC - Eye Exam Eye Exam: EOMI, Normal appearance, PERRL Pupil Exam: NORMAL ACCOMODATION, PERRL - ENT Exam ENT Exam: Mucous Membranes Moist, Normal Exam - Neck Exam Neck Exam: Full ROM, Normal Inspection. absent: Lymphadenopathy - Respiratory Exam Respiratory Exam: Decreased Breath Sounds - Cardiovascular Exam Cardiovascular Exam: REGULAR RHYTHM, +S1, +S2 - GI/Abdominal Exam GI & Abdominal Exam: Soft, Diminished Bowel Sounds - Rectal Exam Rectal Exam: Deferred Assessment and Plan (1) Abdominal pain Status: Acute (2) Left upper quadrant abdominal swelling Status: Acute (3) Bronchitis Status: Acute (4) Chronic venous stasis dermatitis Status: Acute (5) Cough Status: Acute (6) Influenza-like illness Status: Acute (7) Leg edema Status: Acute (8) Leg swelling Status: Acute (9) Morbid obesity Status: Acute (10) Pedal edema Status: Acute (11) Reactive airway disease Status: Acute - Assessment and Plan (Free Text) Plan: Chest Wall Cellulitis -previously considered to be Left upper quadrant abdominal swelling -General surgery consult, Dr. New, f/u recs - cont warm compresses - no drainable collection at this time - currently no surgical intervention needed -ID consult, Dr. Rome, f/u recs f/u vanco trough prior to 4th dose. Maintain between 10-20. continue IV zosyn and vanco. - Abd/Pelv CT w/IV contrast - Extensive fluid in the left lateral abdominal wall subcutaneous fat. This is of uncertain etiology, but could be due to recent trauma, i.e., represent resolving subcutaneous hemorrhage. Soft tissue infection is not excluded. No soft tissue gas or abscess is seen, but note that the left abdominal wall soft tissues are not completely included on the scan. - Small to moderate left pleural effusion. - See full report. Bronchitis 3/2: cough improving; continue Robitussin Dm, albuterol, advair. f/u sputum culture continue IV zosyn and vanco. -CXR: atelectasis and/or infiltrate of lung bases. continue albuterol Continue Advair diskus 250/50 1puff Q12H HTN BP 149/76 Continue Losartan 50mg qD Prophylaxis SCDs
--- NOTE | 2017-11-17 23:31 | CP.PCM.PN ---
Subjective - Date & Time of Evaluation Date of Evaluation: 11/17/17 Time of Evaluation: 23:31 - Subjective Subjective: AFEBRILE , FEELING SLIGHTLY BETTER, LESS COUGH LT LATERAL WALL WARM AND TENDER ON IV ABX Objective - Vital Signs/Intake and Output Vital Signs (last 24 hours): Temp Pulse Resp BP Pulse Ox 98.4 F 89 20 143/83 97 11/17/17 16:21 11/17/17 16:21 11/17/17 16:21 11/17/17 16:21 11/17/17 16:21 Intake and Output: 11/17/17 11/18/17 18:59 06:59 Intake Total 1680 500 Balance 1680 500 - Medications Medications: Current Medications Albuterol (Ventolin Hfa 90 Mcg/Actuation (8 G)) 2 puff IH RQ6 PRN PRN Reason: SOB Enoxaparin Sodium (Lovenox) 40 mg SC DAILY [facility] Last Admin: 11/17/17 10:01 Dose: 40 mg Guaifenesin/Dextromethorphan (Robitussin Dm) 15 ml PO Q6H PRN PRN Reason: Cough Last Admin: 11/17/17 21:46 Dose: 15 ml Piperacillin Sod/Tazobactam Sod (Zosyn 3.375 In Ns 100ml) 100 mls @ 200 mls/hr IVPB Q8 [facility] Last Admin: 11/17/17 21:27 Dose: 200 mls/hr Vancomycin HCl 1,250 mg/ (Sodium Chloride) 250 mls @ 166.6 mls/hr IVPB Q12H [facility] Last Admin: 11/17/17 15:07 Dose: 166.6 mls/hr Losartan Potassium (Cozaar) 50 mg PO DAILY [facility] Last Admin: 11/17/17 10:01 Dose: 50 mg Pantoprazole Sodium (Protonix Ec Tab) 40 mg PO DAILY [facility] Last Admin: 11/17/17 10:01 Dose: 40 mg Fluticasone/Salmeterol (Advair Diskus 250/50) 1 puff INH RQ12 [facility] Last Admin: 11/17/17 19:16 Dose: 1 puff - Labs Labs: 11/17/17 07:47 11/17/17 07:47 - Constitutional Appears: No Acute Distress - Head Exam Head Exam: NORMAL INSPECTION - Eye Exam Eye Exam: EOMI, PERRL - ENT Exam ENT Exam: Normal Oropharynx - Neck Exam Neck Exam: Normal Inspection - Respiratory Exam Respiratory Exam: Decreased Breath Sounds - Cardiovascular Exam Cardiovascular Exam: Tachycardia, REGULAR RHYTHM, +S1, +S2 - GI/Abdominal Exam GI & Abdominal Exam: Soft, Tenderness (LT LATERAL ABDOMINAL WALL.), Normal Bowel Sounds - Extremities Exam Extremities Exam: Pedal Edema (1+). absent: Calf Tenderness - Neurological Exam Neurological Exam: Awake, CN II-XII Intact, Oriented x3, Reflexes Normal - Psychiatric Exam Psychiatric exam: Normal Mood - Skin Skin Exam: Normal Color, Warm Assessment and Plan (1) Left upper quadrant abdominal swelling Assessment & Plan: CONTINUE IV ZOSYN INCREASED DOSE TO 4.5 G EVERY 8 HOURLY 11/15/17 ON IV VANCOMYCIN 1250MG IV Q 12HRLY FOR MRSA/STREPT COVERAGE 11/16/17 F/U VANCO TROUGH PRIOR TO 4TH DOSE AND KEEP BETWEEN 10 AND 20. SURGERY ON BOARD. PRESENTLY RECOMMENDS CONTINUING ANTIBIOTICS. NO SURGICAL INTERVENTION PER SURGERY. Status: Acute (2) Bronchitis Assessment & Plan: C/O COUGH. SPUTUM -N REGULO. CPM -IV ABX. Status: Acute (3) Morbid obesity Assessment & Plan: PT TO BE REFERRED TO A SALESP[facility] FOR WT. LOSS/CALORIE COUNTS ON DISCHARGE.. Status: Acute
[2017-11-18] MEDS: Piperacillin/Tazobact 3.375 gm 100 ML IVPB SCH ×3 (05:30→21:24)
[2017-11-18] MEDS: Fluticasone-Salmeterol 250-50mcg Diskus INH SCH ×2 (08:19→19:30)
[2017-11-18] MEDS: guaiFENesin DM 100 mg-10 mg/5 ml UD PO PRN ×2 (09:24→21:24)
[2017-11-18] MEDS: Pantoprazole 40 mg EC Tab PO SCH (09:24)
[2017-11-18] MEDS: Enoxaparin 40 mg Syringe SC SCH (09:24)
[2017-11-18 14:07] LABS: BASO % 0.6 % (0.0-2.0); EOS # 0.5 K/uL (0.0-0.7); EOS % 7.6 % (0.0-4.0); HEMOGLOBIN 10.3 g/dL (12.0-18.0); LYMPH # 1.7 K/uL (1.0-4.3); LYMPH % 26.6 % (20.0-40.0); MEAN CELL VOLUME 80.4 fL (80.0-94.0); MEAN CORPUSCULAR HEMOGLOBIN 27.4 pg (27.0-31.0); MEAN PLATELET VOLUME 7.4 fL (7.2-11.7); MONO # 0.4 K/uL (0.0-0.8); MONO % 6.1 % (0.0-10.0); NEUT # 3.8 K/uL (1.8-7.0); NEUT % 59.1 % (50.0-75.0); RBC 3.76 Mil/uL (4.40-5.90); RED CELL DISTRIBUTION WIDTH 15.6 % (11.5-14.5); WHITE BLOOD COUNT 6.5 K/uL (4.8-10.8)
[2017-11-18 14:31] LABS: ALBUMIN 3.2 g/dL (3.5-5.0); ALT/SGPT 24 U/L (21-72); AST/SGOT 19 U/L (17-59); BLOOD UREA NITROGEN 7 mg/dL (9-20); CALCIUM 7.9 mg/dl (8.6-10.4); GFR AFRICAN-AMERICAN > 60; GFR NON-AFRICAN AMERICAN > 60
--- NOTE | 2017-11-18 19:15 | CP.PCM.PN ---
Subjective - Date & Time of Evaluation Date of Evaluation: 11/18/17 Time of Evaluation: 07:40 - Subjective Subjective: clinically same Objective - Vital Signs/Intake and Output Vital Signs (last 24 hours): Temp Pulse Resp BP Pulse Ox 98.3 F 71 20 148/86 97 11/18/17 15:15 11/18/17 15:15 11/18/17 15:15 11/18/17 15:15 11/18/17 15:15 Intake and Output: 11/18/17 11/19/17 18:59 06:59 Intake Total 950 Balance 950 - Medications Medications: Current Medications Albuterol (Ventolin Hfa 90 Mcg/Actuation (8 G)) 2 puff IH RQ6 PRN PRN Reason: SOB Last Admin: 11/18/17 08:19 Dose: 2 puff Enoxaparin Sodium (Lovenox) 40 mg SC DAILY [facility] Last Admin: 11/18/17 09:24 Dose: 40 mg Guaifenesin/Dextromethorphan (Robitussin Dm) 15 ml PO Q6H PRN PRN Reason: Cough Last Admin: 11/18/17 09:24 Dose: 15 ml Piperacillin Sod/Tazobactam Sod (Zosyn 3.375 In Ns 100ml) 100 mls @ 200 mls/hr IVPB Q8 [facility] Last Admin: 11/18/17 14:10 Dose: 200 mls/hr Vancomycin HCl 1,250 mg/ (Sodium Chloride) 250 mls @ 166.6 mls/hr IVPB Q12H [facility] Last Admin: 11/18/17 14:46 Dose: 166.6 mls/hr Losartan Potassium (Cozaar) 50 mg PO DAILY [facility] Last Admin: 11/18/17 09:24 Dose: 50 mg Pantoprazole Sodium (Protonix Ec Tab) 40 mg PO DAILY [facility] Last Admin: 11/18/17 09:24 Dose: 40 mg Fluticasone/Salmeterol (Advair Diskus 250/50) 1 puff INH RQ12 [facility] Last Admin: 11/18/17 08:19 Dose: 1 puff - Labs Labs: 11/18/17 13:56 11/18/17 13:56 - Constitutional Appears: Well - Head Exam Head Exam: ATRAUMATIC, NORMAL INSPECTION, NORMOCEPHALIC - Eye Exam Eye Exam: EOMI, Normal appearance, PERRL Pupil Exam: NORMAL ACCOMODATION, PERRL - ENT Exam ENT Exam: Mucous Membranes Moist, Normal Exam - Neck Exam Neck Exam: Full ROM, Normal Inspection. absent: Lymphadenopathy - Respiratory Exam Respiratory Exam: Decreased Breath Sounds - Cardiovascular Exam Cardiovascular Exam: REGULAR RHYTHM, +S1, +S2 - GI/Abdominal Exam GI & Abdominal Exam: Soft, Diminished Bowel Sounds - Rectal Exam Rectal Exam: Deferred Assessment and Plan - Assessment and Plan (Free Text) Plan: Patient advised to reduce the wrist Vancomycin and Zosyn for left wall cellulitis Continue same Patient wants to double portion diet Follow-up with the ID consult follow-up with the current medications possible discharge Monday to the ter S patient does not have a place to stay will discuss with the social media job titles on Monday for possible discharge on Monday
[2017-11-19] MEDS: Piperacillin/Tazobact 3.375 gm 100 ML IVPB SCH ×3 (05:30→21:45)
[2017-11-19] MEDS: Fluticasone-Salmeterol 250-50mcg Diskus INH SCH ×2 (07:26→19:15)
[2017-11-19 09:00] LABS: BASO % 0.5 % (0.0-2.0); EOS # 0.5 K/uL (0.0-0.7); EOS % 8.4 % (0.0-4.0); HEMOGLOBIN 10.8 g/dL (12.0-18.0); LYMPH # 1.6 K/uL (1.0-4.3); LYMPH % 25.4 % (20.0-40.0); MEAN CELL VOLUME 80.5 fL (80.0-94.0); MEAN CORPUSCULAR HEMOGLOBIN 27.3 pg (27.0-31.0); MEAN CORPUSCULAR HGB CONC 33.9 g/dL (33.0-37.0); MEAN PLATELET VOLUME 7.5 fL (7.2-11.7); MONO # 0.4 K/uL (0.0-0.8); MONO % 5.6 % (0.0-10.0); NEUT # 3.9 K/uL (1.8-7.0); NEUT % 60.1 % (50.0-75.0); NRBC % 0.1 % (0.0-2.0); RBC 3.94 Mil/uL (4.40-5.90); RED CELL DISTRIBUTION WIDTH 15.3 % (11.5-14.5); WHITE BLOOD COUNT 6.5 K/uL (4.8-10.8)
[2017-11-19 09:11] LABS: ALB/GLOB RATIO 0.9 (1.0-2.1); ALBUMIN 3.2 g/dL (3.5-5.0); ALT/SGPT 26 U/L (21-72); AST/SGOT 26 U/L (17-59); BLOOD UREA NITROGEN 7 mg/dL (9-20); CALCIUM 8.3 mg/dl (8.6-10.4); GFR AFRICAN-AMERICAN > 60; GFR NON-AFRICAN AMERICAN > 60
[2017-11-19] MEDS: Enoxaparin 40 mg Syringe SC SCH (10:00)
[2017-11-19] MEDS: Pantoprazole 40 mg EC Tab PO SCH (10:00)
[2017-11-19] MEDS: guaiFENesin DM 100 mg-10 mg/5 ml UD PO PRN ×2 (10:02→21:54)
--- NOTE | 2017-11-19 15:47 | CP.PCM.PN ---
Subjective - Date & Time of Evaluation Date of Evaluation: 11/19/17 Time of Evaluation: 07:50 - Subjective Subjective: clinically same Objective - Vital Signs/Intake and Output Vital Signs (last 24 hours): Temp Pulse Resp BP Pulse Ox 97.7 F 94 H 20 153/75 H 96 11/19/17 09:45 11/19/17 09:45 11/19/17 09:45 11/19/17 09:45 11/19/17 09:45 Intake and Output: 11/19/17 11/19/17 06:59 18:59 Intake Total 1150 900 Balance 1150 900 - Medications Medications: Current Medications Albuterol (Ventolin Hfa 90 Mcg/Actuation (8 G)) 2 puff IH RQ6 PRN PRN Reason: SOB Last Admin: 11/18/17 08:19 Dose: 2 puff Enoxaparin Sodium (Lovenox) 40 mg SC DAILY [facility] Last Admin: 11/19/17 10:00 Dose: 40 mg Guaifenesin/Dextromethorphan (Robitussin Dm) 15 ml PO Q6H PRN PRN Reason: Cough Last Admin: 11/19/17 10:02 Dose: 15 ml Piperacillin Sod/Tazobactam Sod (Zosyn 3.375 In Ns 100ml) 100 mls @ 200 mls/hr IVPB Q8 [facility] Last Admin: 11/19/17 13:44 Dose: 200 mls/hr Vancomycin HCl 1,250 mg/ (Sodium Chloride) 250 mls @ 166.6 mls/hr IVPB Q12H [facility] Last Admin: 11/19/17 14:14 Dose: 166.6 mls/hr Losartan Potassium (Cozaar) 50 mg PO DAILY [facility] Last Admin: 11/19/17 09:59 Dose: 50 mg Pantoprazole Sodium (Protonix Ec Tab) 40 mg PO DAILY [facility] Last Admin: 11/19/17 10:00 Dose: 40 mg Fluticasone/Salmeterol (Advair Diskus 250/50) 1 puff INH RQ12 [facility] Last Admin: 11/19/17 07:26 Dose: 1 puff - Labs Labs: 11/19/17 08:42 11/19/17 08:42 - Constitutional Appears: Well - Head Exam Head Exam: ATRAUMATIC, NORMAL INSPECTION, NORMOCEPHALIC - Eye Exam Eye Exam: EOMI, Normal appearance, PERRL Pupil Exam: NORMAL ACCOMODATION, PERRL - ENT Exam ENT Exam: Mucous Membranes Moist, Normal Exam - Neck Exam Neck Exam: Full ROM, Normal Inspection. absent: Lymphadenopathy - Respiratory Exam Respiratory Exam: Decreased Breath Sounds - Cardiovascular Exam Cardiovascular Exam: REGULAR RHYTHM, +S1, +S2 - GI/Abdominal Exam GI & Abdominal Exam: Soft, Diminished Bowel Sounds - Rectal Exam Rectal Exam: Deferred Assessment and Plan - Assessment and Plan (Free Text) Plan: Discharge planning Continue IV antibiotic for left wall cellulitis Continue Vanco and Zosyn Continue Lovenox and Protonix Consultation as ordered Discharge planning
[2017-11-20] MEDS: Piperacillin/Tazobact 3.375 gm 100 ML IVPB SCH ×3 (06:00→21:07)
[2017-11-20 06:44] LABS: BASO % 0.6 % (0.0-2.0); EOS # 0.6 K/uL (0.0-0.7); EOS % 7.7 % (0.0-4.0); HEMOGLOBIN 10.8 g/dL (12.0-18.0); LYMPH # 1.6 K/uL (1.0-4.3); LYMPH % 22.7 % (20.0-40.0); MEAN CELL VOLUME 80.6 fL (80.0-94.0); MEAN CORPUSCULAR HEMOGLOBIN 27.5 pg (27.0-31.0); MEAN CORPUSCULAR HGB CONC 34.2 g/dL (33.0-37.0); MEAN PLATELET VOLUME 7.5 fL (7.2-11.7); MONO # 0.5 K/uL (0.0-0.8); MONO % 6.5 % (0.0-10.0); NEUT # 4.5 K/uL (1.8-7.0); NEUT % 62.5 % (50.0-75.0); RBC 3.92 Mil/uL (4.40-5.90); RED CELL DISTRIBUTION WIDTH 15.1 % (11.5-14.5); WHITE BLOOD COUNT 7.2 K/uL (4.8-10.8)
[2017-11-20 07:04] LABS: ALBUMIN 3.3 g/dL (3.5-5.0); ALT/SGPT 36 U/L (21-72); AST/SGOT 28 U/L (17-59); BLOOD UREA NITROGEN 6 mg/dL (9-20); GFR AFRICAN-AMERICAN > 60; GFR NON-AFRICAN AMERICAN > 60
[2017-11-20] MEDS: Enoxaparin 40 mg Syringe SC SCH (09:14)
[2017-11-20] MEDS: Pantoprazole 40 mg EC Tab PO SCH (09:14)
[2017-11-20] MEDS: Fluticasone-Salmeterol 250-50mcg Diskus INH SCH ×2 (10:26→19:13)
--- NOTE | 2017-11-20 14:57 | CP.PCM.PN ---
Subjective - Date & Time of Evaluation Date of Evaluation: 11/20/17 Time of Evaluation: 15:00 - Subjective Subjective: Progress note. Attending: Dr. Todd Pt seen and examined at bedside. No acute distress. Some pain at cellulitis site. Cellulitis improving. No fevers, chills, vomiting, diarrhea. Objective - Vital Signs/Intake and Output Vital Signs (last 24 hours): Temp Pulse Resp BP Pulse Ox 97.7 F 95 H 20 158/95 H 97 11/20/17 08:12 11/20/17 08:12 11/20/17 08:12 11/20/17 08:12 11/20/17 08:12 Intake and Output: 11/20/17 11/20/17 06:59 18:59 Intake Total 750 Balance 750 - Medications Medications: Current Medications Albuterol (Ventolin Hfa 90 Mcg/Actuation (8 G)) 2 puff IH RQ6 PRN PRN Reason: SOB Last Admin: 11/18/17 08:19 Dose: 2 puff Enoxaparin Sodium (Lovenox) 40 mg SC DAILY [facility] Last Admin: 11/20/17 09:14 Dose: 40 mg Guaifenesin/Dextromethorphan (Robitussin Dm) 15 ml PO Q6H PRN PRN Reason: Cough Last Admin: 11/19/17 21:54 Dose: 15 ml Piperacillin Sod/Tazobactam Sod (Zosyn 3.375 In Ns 100ml) 100 mls @ 200 mls/hr IVPB Q8 [facility] Last Admin: 11/20/17 06:00 Dose: 200 mls/hr Vancomycin HCl 1,250 mg/ (Sodium Chloride) 250 mls @ 166.6 mls/hr IVPB Q12H [facility] Last Admin: 11/20/17 14:42 Dose: 166.6 mls/hr Losartan Potassium (Cozaar) 50 mg PO DAILY [facility] Last Admin: 11/20/17 09:14 Dose: 50 mg Pantoprazole Sodium (Protonix Ec Tab) 40 mg PO DAILY [facility] Last Admin: 11/20/17 09:14 Dose: 40 mg Fluticasone/Salmeterol (Advair Diskus 250/50) 1 puff INH RQ12 [facility] Last Admin: 11/20/17 10:26 Dose: 1 puff - Labs Labs: 11/20/17 06:33 11/20/17 06:33 - Constitutional Appears: Non-toxic, No Acute Distress, Chronically Ill - Head Exam Head Exam: ATRAUMATIC, NORMAL INSPECTION, NORMOCEPHALIC - Eye Exam Eye Exam: EOMI - ENT Exam ENT Exam: Mucous Membranes Moist - Neck Exam Neck Exam: Full ROM, Normal Inspection - Respiratory Exam Respiratory Exam: NORMAL BREATHING PATTERN. absent: Respiratory Distress - Cardiovascular Exam Cardiovascular Exam: +S1, +S2 - GI/Abdominal Exam Additional comments: left abdominal wall cellulitis noted, no purulent drainage. - Extremities Exam Extremities Exam: Pedal Edema. absent: Full ROM, Normal Inspection - Back Exam Back Exam: NORMAL INSPECTION - Neurological Exam Neurological Exam: Alert, Awake, CN II-XII Intact, Oriented x3 - Psychiatric Exam Psychiatric exam: Normal Affect, Normal Mood - Skin Skin Exam: Dry, Intact, Normal Color, Warm Additional comments: -some scattered villa upper chest, pt reports being bitten by bedbugs. Assessment and Plan - Assessment and Plan (Free Text) Assessment: This is a 42 yo male with left abdominal wall cellulitis 1. Abdominal wall cellulitis -GI consult. recs appreciated. -previously considered to be Left upper quadrant abdominal swelling -General surgery consult, Dr. New, f/u recs - cont warm compresses - no drainable collection at this time - currently no surgical intervention needed -ID consult, Dr. Rome, f/u recs f/u vanco trough prior to 4th dose. Maintain between 10-20. -would appreciate recs from ID regarding pt's readiness for discharge. -continue IV zosyn and vanco. - Abd/Pelv CT w/IV contrast - Extensive fluid in the left lateral abdominal wall subcutaneous fat. This is of uncertain etiology, but could be due to recent trauma, i.e., represent resolving subcutaneous hemorrhage. Soft tissue infection is not excluded. No soft tissue gas or abscess is seen, but note that the left abdominal wall soft tissues are not completely included on the scan. - Small to moderate left pleural effusion. - See full report. -blood cultures negative x 5 days 2. Bronchitis -ventolin inhaler prn -robitussin dm -ID consult. recs appreciated. DR. Ward Rome. -advair diskus 1 puff q 12. -sputum culture negative. 3. HTN -continue losartan daily. 4. Morbid obesity -pt to be referred to master cook upon discharge. 5. GI/DVT ppx -SCDs -lovenox daily Case discussed with attending. All medical management as per Dr. Leonides Todd.
--- NOTE | 2017-11-20 19:33 | CP.PCM.PN ---
Subjective - Date & Time of Evaluation Date of Evaluation: 11/20/17 Time of Evaluation: 09:30 Objective - Vital Signs/Intake and Output Vital Signs (last 24 hours): Temp Pulse Resp BP Pulse Ox 97.4 F L 88 20 131/78 97 11/20/17 15:30 11/20/17 15:30 11/20/17 15:30 11/20/17 15:30 11/20/17 15:30 Intake and Output: 11/20/17 11/21/17 18:59 06:59 Intake Total 750 Balance 750 - Medications Medications: Current Medications Albuterol (Ventolin Hfa 90 Mcg/Actuation (8 G)) 2 puff IH RQ6 PRN PRN Reason: SOB Last Admin: 11/18/17 08:19 Dose: 2 puff Enoxaparin Sodium (Lovenox) 40 mg SC DAILY [facility] Last Admin: 11/20/17 09:14 Dose: 40 mg Guaifenesin/Dextromethorphan (Robitussin Dm) 15 ml PO Q6H PRN PRN Reason: Cough Last Admin: 11/19/17 21:54 Dose: 15 ml Piperacillin Sod/Tazobactam Sod (Zosyn 3.375 In Ns 100ml) 100 mls @ 200 mls/hr IVPB Q8 [facility] Last Admin: 11/20/17 17:22 Dose: 200 mls/hr Vancomycin HCl 1,250 mg/ (Sodium Chloride) 250 mls @ 166.6 mls/hr IVPB Q12H [facility] Last Admin: 11/20/17 14:42 Dose: 166.6 mls/hr Losartan Potassium (Cozaar) 50 mg PO DAILY [facility] Last Admin: 11/20/17 09:14 Dose: 50 mg Pantoprazole Sodium (Protonix Ec Tab) 40 mg PO DAILY [facility] Last Admin: 11/20/17 09:14 Dose: 40 mg Fluticasone/Salmeterol (Advair Diskus 250/50) 1 puff INH RQ12 [facility] Last Admin: 11/20/17 19:13 Dose: Not Given - Labs Labs: 11/20/17 06:33 11/20/17 06:33 Assessment and Plan (1) Abdominal pain Status: Acute (2) Left upper quadrant abdominal swelling Status: Acute (3) Bronchitis Status: Acute (4) Chronic venous stasis dermatitis Status: Acute (5) Cough Status: Acute (6) Influenza-like illness Status: Acute (7) Leg edema Status: Acute (8) Leg swelling Status: Acute (9) Morbid obesity Status: Acute (10) Pedal edema Status: Acute (11) Reactive airway disease Status: Acute
[2017-11-20] MEDS: guaiFENesin DM 100 mg-10 mg/5 ml UD PO PRN (21:08)
--- NOTE | 2017-11-20 23:58 | CP.PCM.PN ---
Subjective - Date & Time of Evaluation Date of Evaluation: 11/20/17 Time of Evaluation: 23:58 - Subjective Subjective: AFEBRILE. C/O ABDOMINAL PAIN LT LATERAL SIDE +VE COUGH/AND PLEURITIC CHEST DISCOMFORT ON COUGHING. +VE MORBID OBESITY Objective - Vital Signs/Intake and Output Vital Signs (last 24 hours): Temp Pulse Resp BP Pulse Ox 97.4 F L 88 20 131/78 97 11/20/17 15:30 11/20/17 15:30 11/20/17 15:30 11/20/17 15:30 11/20/17 15:30 Intake and Output: 11/20/17 11/21/17 18:59 06:59 Intake Total 750 350 Balance 750 350 - Medications Medications: Current Medications Albuterol (Ventolin Hfa 90 Mcg/Actuation (8 G)) 2 puff IH RQ6 PRN PRN Reason: SOB Last Admin: 11/18/17 08:19 Dose: 2 puff Enoxaparin Sodium (Lovenox) 40 mg SC DAILY [facility] Last Admin: 11/20/17 09:14 Dose: 40 mg Guaifenesin/Dextromethorphan (Robitussin Dm) 15 ml PO Q6H PRN PRN Reason: Cough Last Admin: 11/20/17 21:08 Dose: 15 ml Piperacillin Sod/Tazobactam Sod (Zosyn 3.375 In Ns 100ml) 100 mls @ 200 mls/hr IVPB Q8 [facility] Last Admin: 11/20/17 21:07 Dose: 200 mls/hr Vancomycin HCl 1,250 mg/ (Sodium Chloride) 250 mls @ 166.6 mls/hr IVPB Q12H [facility] Last Admin: 11/20/17 14:42 Dose: 166.6 mls/hr Losartan Potassium (Cozaar) 50 mg PO DAILY [facility] Last Admin: 11/20/17 09:14 Dose: 50 mg Pantoprazole Sodium (Protonix Ec Tab) 40 mg PO DAILY [facility] Last Admin: 11/20/17 09:14 Dose: 40 mg Fluticasone/Salmeterol (Advair Diskus 250/50) 1 puff INH RQ12 [facility] Last Admin: 11/20/17 19:13 Dose: Not Given - Labs Labs: 11/20/17 06:33 03/05/18 06:33 - Constitutional Appears: No Acute Distress - Head Exam Head Exam: NORMAL INSPECTION - Eye Exam Eye Exam: EOMI - ENT Exam ENT Exam: Normal Oropharynx - Neck Exam Neck Exam: Normal Inspection - Respiratory Exam Respiratory Exam: Decreased Breath Sounds - Cardiovascular Exam Cardiovascular Exam: REGULAR RHYTHM, +S1, +S2 - GI/Abdominal Exam GI & Abdominal Exam: Soft, Tenderness (LT ABDOMINAL WALL ON PALPATION /+VE CELLULITIS) - Extremities Exam Extremities Exam: Pedal Edema. 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 PRESENTLY RECOMMENDS CONTINUING ANTIBIOTICS WARM SOAKS Status: Acute (2) Bronchitis Status: Acute (3) Morbid obesity Status: Acute
[2017-11-21] MEDS: Piperacillin/Tazobact 3.375 gm 100 ML IVPB SCH ×3 (05:04→21:30)
[2017-11-21 06:25] LABS: BASO # 0.1 K/uL (0.0-0.2); BASO % 0.9 % (0.0-2.0); EOS # 0.7 K/uL (0.0-0.7); EOS % 9.1 % (0.0-4.0); HEMOGLOBIN 11.2 g/dL (12.0-18.0); LYMPH # 1.6 K/uL (1.0-4.3); LYMPH % 21.9 % (20.0-40.0); MEAN CELL VOLUME 80.9 fL (80.0-94.0); MEAN CORPUSCULAR HEMOGLOBIN 27.3 pg (27.0-31.0); MEAN CORPUSCULAR HGB CONC 33.8 g/dL (33.0-37.0); MEAN PLATELET VOLUME 7.2 fL (7.2-11.7); MONO # 0.5 K/uL (0.0-0.8); MONO % 7.2 % (0.0-10.0); NEUT # 4.5 K/uL (1.8-7.0); NEUT % 60.9 % (50.0-75.0); NRBC % 0.1 % (0.0-2.0); RBC 4.1 Mil/uL (4.40-5.90); RED CELL DISTRIBUTION WIDTH 15.4 % (11.5-14.5); WHITE BLOOD COUNT 7.3 K/uL (4.8-10.8)
[2017-11-21 06:45] LABS: ALBUMIN 3.4 g/dL (3.5-5.0); ALT/SGPT 46 U/L (21-72); AST/SGOT 32 U/L (17-59); BLOOD UREA NITROGEN 8 mg/dL (9-20); CALCIUM 8.3 mg/dl (8.6-10.4); GFR AFRICAN-AMERICAN > 60; GFR NON-AFRICAN AMERICAN > 60
[2017-11-21] MEDS: Fluticasone-Salmeterol 250-50mcg Diskus INH SCH ×2 (08:25→19:09)
[2017-11-21] MEDS: Pantoprazole 40 mg EC Tab PO SCH (09:21)
[2017-11-21] MEDS: Enoxaparin 40 mg Syringe SC SCH (09:21)
--- NOTE | 2017-11-21 11:46 | CP.PCM.PN ---
<Valentin Perez - Last Filed: 11/21/17 11:46> Subjective - Date & Time of Evaluation Date of Evaluation: 11/21/17 Time of Evaluation: 11:45 - Subjective Subjective: Progress note. Attending: Dr. Todd. Pt seen and examined at bedside. No acute distress. No events overnight. No fevers, chills, vomiting, diarrhea. Cellulitis improving. Objective - Vital Signs/Intake and Output Vital Signs (last 24 hours): Temp Pulse Resp BP Pulse Ox 98.3 F 87 20 127/84 98 11/21/17 07:45 11/21/17 07:45 11/21/17 07:45 11/21/17 07:45 11/21/17 07:45 Intake and Output: 11/21/17 11/21/17 06:59 18:59 Intake Total 350 300 Balance 350 300 - Medications Medications: Current Medications Albuterol (Ventolin Hfa 90 Mcg/Actuation (8 G)) 2 puff IH RQ6 PRN PRN Reason: SOB Last Admin: 11/18/17 08:19 Dose: 2 puff Enoxaparin Sodium (Lovenox) 40 mg SC DAILY [facility] Last Admin: 11/21/17 09:21 Dose: 40 mg Guaifenesin/Dextromethorphan (Robitussin Dm) 15 ml PO Q6H PRN PRN Reason: Cough Last Admin: 11/20/17 21:08 Dose: 15 ml Piperacillin Sod/Tazobactam Sod (Zosyn 3.375 In Ns 100ml) 100 mls @ 200 mls/hr IVPB Q8 [facility] Last Admin: 11/21/17 05:04 Dose: 200 mls/hr Vancomycin HCl 1,250 mg/ (Sodium Chloride) 250 mls @ 166.6 mls/hr IVPB Q12H [facility] Last Admin: 11/21/17 03:33 Dose: 166.6 mls/hr Losartan Potassium (Cozaar) 50 mg PO DAILY [facility] Last Admin: 11/21/17 09:21 Dose: 50 mg Pantoprazole Sodium (Protonix Ec Tab) 40 mg PO DAILY [facility] Last Admin: 11/21/17 09:21 Dose: 40 mg Fluticasone/Salmeterol (Advair Diskus 250/50) 1 puff INH RQ12 [facility] Last Admin: 11/21/17 08:25 Dose: 1 puff - Labs Labs: 11/21/17 06:10 11/21/17 06:10 - Constitutional Appears: Non-toxic, No Acute Distress - Head Exam Head Exam: ATRAUMATIC, NORMAL INSPECTION, NORMOCEPHALIC - Eye Exam Eye Exam: EOMI - ENT Exam ENT Exam: Mucous Membranes Moist - Neck Exam Neck Exam: Full ROM, Normal Inspection - Respiratory Exam Respiratory Exam: NORMAL BREATHING PATTERN. absent: Respiratory Distress - Cardiovascular Exam Cardiovascular Exam: +S1, +S2 - GI/Abdominal Exam GI & Abdominal Exam: Soft, Normal Bowel Sounds. absent: Tenderness Additional comments: cellulitis improving. - Extremities Exam Extremities Exam: Full ROM, Normal Inspection - Back Exam Back Exam: NORMAL INSPECTION - Neurological Exam Neurological Exam: Alert, Awake, Oriented x3 - Psychiatric Exam Psychiatric exam: Normal Affect, Normal Mood - Skin Skin Exam: Dry, Intact, Normal Color, Warm Assessment and Plan - Assessment and Plan (Free Text) Assessment: This is a 42 yo male with left abdominal wall cellulitis 1. Abdominal wall cellulitis -GI consult. recs appreciated. -previously considered to be Left upper quadrant abdominal swelling -General surgery consult, Dr. New, f/u recs - cont warm compresses - no drainable collection at this time - currently no surgical intervention needed -ID consult, Dr. Rome, f/u recs f/u vanco trough prior to 4th dose. Maintain between 10-20. -would appreciate recs from ID regarding pt's readiness for discharge. -continue IV zosyn and vanco. - Abd/Pelv CT w/IV contrast - Extensive fluid in the left lateral abdominal wall subcutaneous fat. This is of uncertain etiology, but could be due to recent trauma, i.e., represent resolving subcutaneous hemorrhage. Soft tissue infection is not excluded. No soft tissue gas or abscess is seen, but note that the left abdominal wall soft tissues are not completely included on the scan. - Small to moderate left pleural effusion. - See full report. -blood cultures negative x 5 days 2. Bronchitis -ventolin inhaler prn -robitussin dm -ID consult. recs appreciated. DR. Ward Rome. -advair diskus 1 puff q 12. -sputum culture negative. 3. HTN -continue losartan daily. 4. Morbid obesity -pt to be referred to forensic manager upon discharge. 5. GI/DVT ppx -SCDs -lovenox daily Case discussed with attending. All medical management as per Dr. Leonides Todd. <Ky Todd - Last Filed: 11/21/17 19:20> Objective - Vital Signs/Intake and Output Vital Signs (last 24 hours): Temp Pulse Resp BP Pulse Ox 97.9 F 90 20 136/81 98 11/21/17 17:23 11/21/17 17:23 11/21/17 17:23 11/21/17 17:23 11/21/17 17:23 Intake and Output: 11/21/17 11/22/17 18:59 06:59 Intake Total 1050 Balance 1050 - Medications Medications: Current Medications Albuterol (Ventolin Hfa 90 Mcg/Actuation (8 G)) 2 puff IH RQ6 PRN PRN Reason: SOB Last Admin: 11/18/17 08:19 Dose: 2 puff Enoxaparin Sodium (Lovenox) 40 mg SC DAILY [facility] Last Admin: 11/21/17 09:21 Dose: 40 mg Guaifenesin/Dextromethorphan (Robitussin Dm) 15 ml PO Q6H [facility] Last Admin: 11/21/17 17:27 Dose: 15 ml Piperacillin Sod/Tazobactam Sod (Zosyn 3.375 In Ns 100ml) 100 mls @ 200 mls/hr IVPB Q8 [facility] Last Admin: 11/21/17 13:54 Dose: 200 mls/hr Vancomycin HCl 1,250 mg/ (Sodium Chloride) 250 mls @ 166.6 mls/hr IVPB Q12H [facility] Last Admin: 11/21/17 14:30 Dose: 166.6 mls/hr Losartan Potassium (Cozaar) 50 mg PO DAILY [facility] Last Admin: 11/21/17 09:21 Dose: 50 mg Pantoprazole Sodium (Protonix Ec Tab) 40 mg PO DAILY [facility] Last Admin: 11/21/17 09:21 Dose: 40 mg Fluticasone/Salmeterol (Advair Diskus 250/50) 1 puff INH RQ12 [facility] Last Admin: 11/21/17 19:09 Dose: 1 puff - Labs Labs: 11/21/17 06:10 11/21/17 06:10 Assessment and Plan (1) Abdominal pain Status: Acute (2) Left upper quadrant abdominal swelling Status: Acute (3) Bronchitis Status: Acute (4) Chronic venous stasis dermatitis Status: Acute (5) Cough Status: Acute (6) Influenza-like illness Status: Acute (7) Leg edema Status: Acute (8) Leg swelling Status: Acute (9) Morbid obesity Status: Acute (10) Pedal edema Status: Acute (11) Reactive airway disease Status: Acute - Assessment and Plan (Free Text) Plan: This is a 42 yo male with left abdominal wall cellulitis 1. Abdominal wall cellulitis -GI consult. recs appreciated. -previously considered to be Left upper quadrant abdominal swelling -General surgery consult, Dr. New, f/u recs - cont warm compresses - no drainable collection at this time - currently no surgical intervention needed -ID consult, Dr. Rome, f/u recs f/u vanco trough prior to 4th dose. Maintain between 10-20. -would appreciate recs from ID regarding pt's readiness for discharge. -continue IV zosyn and vanco. - Abd/Pelv CT w/IV contrast - Extensive fluid in the left lateral abdominal wall subcutaneous fat. This is of uncertain etiology, but could be due to recent trauma, i.e., represent resolving subcutaneous hemorrhage. Soft tissue infection is not excluded. No soft tissue gas or abscess is seen, but note that the left abdominal wall soft tissues are not completely included on the scan. - Small to moderate left pleural effusion. - See full report. -blood cultures negative x 5 days 2. Bronchitis -ventolin inhaler prn -robitussin dm -ID consult. recs appreciated. DR. Ward Rome. -advair diskus 1 puff q 12. -sputum culture negative. 3. HTN -continue losartan daily. 4. Morbid obesity
[2017-11-21] MEDS: guaiFENesin DM 100 mg-10 mg/5 ml UD PO SCH ×2 (12:11→17:27)
--- NOTE | 2017-11-21 19:22 | CP.PCM.PN ---
Subjective - Date & Time of Evaluation Date of Evaluation: 11/21/17 Time of Evaluation: 07:25 - Subjective Subjective: discharge planning Objective - Vital Signs/Intake and Output Vital Signs (last 24 hours): Temp Pulse Resp BP Pulse Ox 97.9 F 90 20 136/81 98 11/21/17 17:23 11/21/17 17:23 11/21/17 17:23 11/21/17 17:23 11/21/17 17:23 Intake and Output: 11/21/17 11/22/17 18:59 06:59 Intake Total 1050 Balance 1050 - Medications Medications: Current Medications Albuterol (Ventolin Hfa 90 Mcg/Actuation (8 G)) 2 puff IH RQ6 PRN PRN Reason: SOB Last Admin: 11/18/17 08:19 Dose: 2 puff Enoxaparin Sodium (Lovenox) 40 mg SC DAILY [facility] Last Admin: 11/21/17 09:21 Dose: 40 mg Guaifenesin/Dextromethorphan (Robitussin Dm) 15 ml PO Q6H [facility] Last Admin: 11/21/17 17:27 Dose: 15 ml Piperacillin Sod/Tazobactam Sod (Zosyn 3.375 In Ns 100ml) 100 mls @ 200 mls/hr IVPB Q8 [facility] Last Admin: 11/21/17 13:54 Dose: 200 mls/hr Vancomycin HCl 1,250 mg/ (Sodium Chloride) 250 mls @ 166.6 mls/hr IVPB Q12H [facility] Last Admin: 11/21/17 14:30 Dose: 166.6 mls/hr Losartan Potassium (Cozaar) 50 mg PO DAILY [facility] Last Admin: 11/21/17 09:21 Dose: 50 mg Pantoprazole Sodium (Protonix Ec Tab) 40 mg PO DAILY [facility] Last Admin: 11/21/17 09:21 Dose: 40 mg Fluticasone/Salmeterol (Advair Diskus 250/50) 1 puff INH RQ12 [facility] Last Admin: 11/21/17 19:09 Dose: 1 puff - Labs Labs: 11/21/17 06:10 11/21/17 06:10 Assessment and Plan (1) Abdominal pain Status: Acute (2) Left upper quadrant abdominal swelling Status: Acute (3) Bronchitis Status: Acute (4) Chronic venous stasis dermatitis Status: Acute (5) Cough Status: Acute (6) Influenza-like illness Status: Acute (7) Leg edema Status: Acute (8) Leg swelling Status: Acute (9) Morbid obesity Status: Acute (10) Pedal edema Status: Acute (11) Reactive airway disease Status: Acute - Assessment and Plan (Free Text) Plan: This is a 42 yo male with left abdominal wall cellulitis 1. Abdominal wall cellulitis -GI consult. recs appreciated. -previously considered to be Left upper quadrant abdominal swelling -General surgery consult, Dr. New, f/u recs - cont warm compresses - no drainable collection at this time - currently no surgical intervention needed -ID consult, Dr. Rome, f/u recs f/u vanco trough prior to 4th dose. Maintain between 10-20. -would appreciate recs from ID regarding pt's readiness for discharge. -continue IV zosyn and vanco. - Abd/Pelv CT w/IV contrast - Extensive fluid in the left lateral abdominal wall subcutaneous fat. This is of uncertain etiology, but could be due to recent trauma, i.e., represent resolving subcutaneous hemorrhage. Soft tissue infection is not excluded. No soft tissue gas or abscess is seen, but note that the left abdominal wall soft tissues are not completely included on the scan. - Small to moderate left pleural effusion. - See full report. -blood cultures negative x 5 days 2. Bronchitis -ventolin inhaler prn -robitussin dm -ID consult. recs appreciated. DR. Ward Rome. -advair diskus 1 puff q 12. -sputum culture negative. 3. HTN -continue losartan daily. 4. Morbid obesity case seen and d.w staff
--- NOTE | 2017-11-21 22:44 | CP.PCM.PN ---
Subjective - Date & Time of Evaluation Date of Evaluation: 11/21/17 Time of Evaluation: 22:44 - Subjective Subjective: AFEBRILE. VSS STILL C/O PERSISTANT COUGH. AND LT SIDE PLEURITIC CHEST PAIN. DENIES SOB, HEMOPTYSIS. STILL WITH LT ABDOMIAL WALL PAIN ON COUGHING. CASE DISCUSSED WIT RESIDENT NIETO. CONSULTANTS NOTED. LABS REVIEWED VANCO TROUGH 17.0-OK CREAT 0.9/BUN8 LFTS N PLAN CT CHEST WITH IV CONTRAST R/O PLEURAL MASS / PULMONARY INFARCTION . CONTINUE IV VANCOMYCIN 1250MG IV [id number]. IV ZOSYN 3.375GM IV [id number]. HOLD DC FOR NOW DISCUSSED WITH [employer]HT[employer] WORKER MS BYRD Objective - Vital Signs/Intake and Output Vital Signs (last 24 hours): Temp Pulse Resp BP Pulse Ox 97.9 F 90 20 136/81 98 11/21/17 17:23 11/21/17 17:23 11/21/17 17:23 11/21/17 17:23 11/21/17 17:23 Intake and Output: 11/21/17 11/22/17 18:59 06:59 Intake Total 1050 600 Balance 1050 600 - Medications Medications: Current Medications Albuterol (Ventolin Hfa 90 Mcg/Actuation (8 G)) 2 puff IH RQ6 PRN PRN Reason: SOB Last Admin: 11/18/17 08:19 Dose: 2 puff Enoxaparin Sodium (Lovenox) 40 mg SC DAILY [facility] Last Admin: 11/21/17 09:21 Dose: 40 mg Guaifenesin/Dextromethorphan (Robitussin Dm) 15 ml PO Q6H [facility] Last Admin: 11/21/17 17:27 Dose: 15 ml Piperacillin Sod/Tazobactam Sod (Zosyn 3.375 In Ns 100ml) 100 mls @ 200 mls/hr IVPB Q8 [facility] Last Admin: 11/21/17 21:30 Dose: 200 mls/hr Vancomycin HCl 1,250 mg/ (Sodium Chloride) 250 mls @ 166.6 mls/hr IVPB Q12H [facility] Last Admin: 11/21/17 14:30 Dose: 166.6 mls/hr Losartan Potassium (Cozaar) 50 mg PO DAILY [facility] Last Admin: 11/21/17 09:21 Dose: 50 mg Pantoprazole Sodium (Protonix Ec Tab) 40 mg PO DAILY [facility] Last Admin: 11/21/17 09:21 Dose: 40 mg Fluticasone/Salmeterol (Advair Diskus 250/50) 1 puff INH RQ12 [facility] Last Admin: 11/21/17 19:09 Dose: 1 puff - Labs Labs: 11/21/17 06:10 11/21/17 06:10 - Constitutional Appears: No Acute Distress - Head Exam Head Exam: NORMAL INSPECTION - Eye Exam Eye Exam: EOMI, PERRL - ENT Exam ENT Exam: Normal Oropharynx - Neck Exam Neck Exam: Normal Inspection - Respiratory Exam Respiratory Exam: Decreased Breath Sounds - Cardiovascular Exam Cardiovascular Exam: Tachycardia, REGULAR RHYTHM, +S1, +S2 - GI/Abdominal Exam GI & Abdominal Exam: Soft, Tenderness (LT ABDOMINAL WALL. MORBID SKIN FOLDS.TENDERNESS ON PALPATION) - Extremities Exam Extremities Exam: Pedal Edema. 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 PRESENTLY RECOMMENDS CONTINUING ANTIBIOTICS Status: Acute (2) Bronchitis Assessment & Plan: C/O PERSISTANT COUGH /AND PLEURITIC CHEST PAIN. CT CHEST WITH IV CONTRAST. ORDERED Status: Acute (3) Morbid obesity Status: Acute
[2017-11-22] MEDS: guaiFENesin DM 100 mg-10 mg/5 ml UD PO SCH ×4 (00:42→17:53)
[2017-11-22] MEDS: Piperacillin/Tazobact 3.375 gm 100 ML IVPB SCH ×3 (05:06→21:28)
[2017-11-22] MEDS: Fluticasone-Salmeterol 250-50mcg Diskus INH SCH ×2 (07:58→18:59)
--- NOTE | 2017-11-22 09:42 | CP.PCM.PN ---
Subjective - Date & Time of Evaluation Date of Evaluation: 11/22/17 Objective - Vital Signs/Intake and Output Vital Signs (last 24 hours): Temp Pulse Resp BP Pulse Ox 98.1 F 97 H 20 121/71 95 11/22/17 09:38 11/22/17 09:38 11/22/17 09:38 11/22/17 09:38 11/22/17 09:38 Intake and Output: 11/22/17 11/22/17 06:59 18:59 Intake Total 1140 Output Total 2 Balance 1138 - Medications Medications: Current Medications Albuterol (Ventolin Hfa 90 Mcg/Actuation (8 G)) 2 puff IH RQ6 PRN PRN Reason: SOB Last Admin: 11/18/17 08:19 Dose: 2 puff Enoxaparin Sodium (Lovenox) 40 mg SC DAILY [facility] Last Admin: 11/21/17 09:21 Dose: 40 mg Guaifenesin/Dextromethorphan (Robitussin Dm) 15 ml PO Q6H [facility] Last Admin: 11/22/17 05:07 Dose: 15 ml Piperacillin Sod/Tazobactam Sod (Zosyn 3.375 In Ns 100ml) 100 mls @ 200 mls/hr IVPB Q8 [facility] Last Admin: 11/22/17 05:06 Dose: 200 mls/hr Vancomycin HCl 1,250 mg/ (Sodium Chloride) 250 mls @ 166.6 mls/hr IVPB Q12H [facility] Last Admin: 11/22/17 02:53 Dose: 166.6 mls/hr Losartan Potassium (Cozaar) 50 mg PO DAILY [facility] Last Admin: 11/21/17 09:21 Dose: 50 mg Pantoprazole Sodium (Protonix Ec Tab) 40 mg PO DAILY [facility] Last Admin: 11/21/17 09:21 Dose: 40 mg Fluticasone/Salmeterol (Advair Diskus 250/50) 1 puff INH RQ12 [facility] Last Admin: 11/21/17 19:09 Dose: 1 puff - Labs Labs: 11/21/17 06:10 11/21/17 06:10 Assessment and Plan (1) Abdominal pain Status: Acute (2) Left upper quadrant abdominal swelling Status: Acute (3) Bronchitis Status: Acute (4) Chronic venous stasis dermatitis Status: Acute (5) Cough Status: Acute (6) Influenza-like illness Status: Acute (7) Leg edema Status: Acute (8) Leg swelling Status: Acute (9) Morbid obesity Status: Acute (10) Pedal edema Status: Acute (11) Reactive airway disease Status: Acute - Assessment and Plan (Free Text) Plan: Continue vancomycin continue Zosyn The discharge plan Patient needs to be discharged to the [facility] Cellulitis on the left side of the stomach is better Patient advised to loose weight 1. Abdominal wall cellulitis -GI consult. recs appreciated. -previously considered to be Left upper quadrant abdominal swelling -General surgery consult, Dr. New, f/u recs - cont warm compresses - no drainable collection at this time - currently no surgical intervention needed -ID consult, Dr. Rome, f/u recs f/u vanco trough prior to 4th dose. Maintain between 10-20. -would appreciate recs from ID regarding pt's readiness for discharge. -continue IV zosyn and vanco. - Abd/Pelv CT w/IV contrast - Extensive fluid in the left lateral abdominal wall subcutaneous fat. This is of uncertain etiology, but could be due to recent trauma, i.e., represent resolving subcutaneous hemorrhage. Soft tissue infection is not excluded. No soft tissue gas or abscess is seen, but note that the left abdominal wall soft tissues are not completely included on the scan. - Small to moderate left pleural effusion. - See full report. -blood cultures negative x 5 days 2. Bronchitis -ventolin inhaler prn -robitussin dm -ID consult. recs appreciated. DR. Ward Rome.
[2017-11-22 10:44] LABS: BASO # 0.1 K/uL (0.0-0.2); BASO % 0.7 % (0.0-2.0); EOS # 0.6 K/uL (0.0-0.7); EOS % 7.8 % (0.0-4.0); HEMOGLOBIN 11.4 g/dL (12.0-18.0); LYMPH # 1.5 K/uL (1.0-4.3); LYMPH % 18.5 % (20.0-40.0); MEAN CELL VOLUME 80.7 fL (80.0-94.0); MEAN CORPUSCULAR HEMOGLOBIN 27.5 pg (27.0-31.0); MEAN CORPUSCULAR HGB CONC 34.1 g/dL (33.0-37.0); MEAN PLATELET VOLUME 7.3 fL (7.2-11.7); MONO # 0.7 K/uL (0.0-0.8); NEUT # 5.3 K/uL (1.8-7.0); NRBC % 0.1 % (0.0-2.0); RBC 4.13 Mil/uL (4.40-5.90); RED CELL DISTRIBUTION WIDTH 16.2 % (11.5-14.5); WHITE BLOOD COUNT 8.2 K/uL (4.8-10.8)
[2017-11-22] MEDS: Enoxaparin 40 mg Syringe SC SCH (10:47)
[2017-11-22] MEDS: Pantoprazole 40 mg EC Tab PO SCH (10:47)
[2017-11-22 10:58] LABS: ALBUMIN 3.5 g/dL (3.5-5.0); ALT/SGPT 40 U/L (21-72); AST/SGOT 31 U/L (17-59); BLOOD UREA NITROGEN 9 mg/dL (9-20); CALCIUM 8.6 mg/dl (8.6-10.4); GFR AFRICAN-AMERICAN > 60; GFR NON-AFRICAN AMERICAN > 60
[2017-11-22] MEDS ORDERED: Iodixanol 320 MG/ML 100 ML BOTTLE IV ONE (12:58)
--- NOTE | 2017-11-22 14:53 | CT ---
PROCEDURE: CT Chest with contrast HISTORY: CHRONIC COUGH/LT CHEST WALL PAIN COMPARISON: None. TECHNIQUE: Contiguous axial images were obtained through the chest with intravenous contrast enhancement. Sagittal and coronal reconstructions were performed. IV contrast: 100 mL Visipaque 320 Radiation dose (DLP): 2226.03 mGy-cm. This CT exam was performed using one or more of the following dose reduction techniques: Automated exposure control, adjustment of the mA and/or kV according to patient size, and/or use of iterative reconstruction technique. FINDINGS: LUNGS: Clear lungs. Visualized airway clear. MEDIASTINUM: Thank you for this coffee lasted in SDS Normal sized heart. Main pulmonary artery unremarkable. No vascular congestion. No lymphadenopathy. PLEURA: Moderate left pleural effusion. No right pleural effusion. No pneumothorax. BONES: No fracture. No destructive lesion. UPPER ABDOMEN: Grossly unremarkable. OTHER FINDINGS: Bilateral gynecomastia. There is abnormal soft tissue/ fluid density in the left chest wall common beyond the available [id number] of the CT scanner, due to the patient's large body habitus. . Its significance is unclear. Further radiographic evaluation may be attempted with computed tomography of the chest performed with the patient in the left lateral decubitus position. IMPRESSION: Moderate left pleural effusion. Left lower lobe atelectasis, possibly secondary to pleural effusion. Left upper lobe infiltrate versus atelectasis. Abnormal soft tissue/ fluid density in the left chest wall, only partially evaluated with this examination. Full evaluation of the left chest wall is not available on the basis of this examination due to the patient's large body habitus. Consider an attempt at additional radiographic evaluation with computed tomography with the patient in the left lateral decubitus position.
--- NOTE | 2017-11-22 15:41 | CP.PCM.PN ---
<Valentin Perez - Last Filed: 11/22/17 15:50> Subjective - Date & Time of Evaluation Date of Evaluation: 11/22/17 Time of Evaluation: 15:30 - Subjective Subjective: PROGRESS NOTE. Attending: Dr. Tim Todd. Pt seen and examined at bedside. No acute distress. No fevers, chills, vomiting , diarrhea. Objective - Vital Signs/Intake and Output Vital Signs (last 24 hours): Temp Pulse Resp BP Pulse Ox 98.1 F 97 H 20 121/71 95 11/22/17 09:38 11/22/17 09:38 11/22/17 09:38 11/22/17 09:38 11/22/17 09:38 Intake and Output: 11/22/17 11/22/17 06:59 18:59 Intake Total 1140 Output Total 2 Balance 1138 - Medications Medications: Current Medications Albuterol (Ventolin Hfa 90 Mcg/Actuation (8 G)) 2 puff IH RQ6 PRN PRN Reason: SOB Last Admin: 11/18/17 08:19 Dose: 2 puff Enoxaparin Sodium (Lovenox) 40 mg SC DAILY [facility] Last Admin: 11/22/17 10:47 Dose: 40 mg Guaifenesin/Dextromethorphan (Robitussin Dm) 15 ml PO Q6H [facility] Last Admin: 11/22/17 12:38 Dose: 15 ml Piperacillin Sod/Tazobactam Sod (Zosyn 3.375 In Ns 100ml) 100 mls @ 200 mls/hr IVPB Q8 [facility] Last Admin: 11/22/17 14:59 Dose: 200 mls/hr Vancomycin HCl 1,250 mg/ (Sodium Chloride) 250 mls @ 166.6 mls/hr IVPB Q12H [facility] Last Admin: 11/22/17 14:59 Dose: 166.6 mls/hr Losartan Potassium (Cozaar) 50 mg PO DAILY [facility] Last Admin: 11/22/17 10:47 Dose: 50 mg Pantoprazole Sodium (Protonix Ec Tab) 40 mg PO DAILY [facility] Last Admin: 11/22/17 10:47 Dose: 40 mg Fluticasone/Salmeterol (Advair Diskus 250/50) 1 puff INH RQ12 [facility] Last Admin: 11/21/17 19:09 Dose: 1 puff - Labs Labs: 11/22/17 10:36 11/22/17 10:36 - Constitutional Appears: Non-toxic, No Acute Distress, Chronically Ill - Head Exam Head Exam: ATRAUMATIC, NORMAL INSPECTION, NORMOCEPHALIC - Eye Exam Eye Exam: EOMI - ENT Exam ENT Exam: Mucous Membranes Moist - Neck Exam Neck Exam: Full ROM, Normal Inspection - Respiratory Exam Respiratory Exam: absent: Respiratory Distress - Cardiovascular Exam Cardiovascular Exam: +S1, +S2 - GI/Abdominal Exam Additional comments: Cellulitis improving. - Extremities Exam Extremities Exam: Full ROM, Normal Inspection - Back Exam Back Exam: NORMAL INSPECTION - Neurological Exam Neurological Exam: Alert, Awake, CN II-XII Intact, Oriented x3 - Psychiatric Exam Psychiatric exam: Flat Affect - Skin Additional comments: Bed bug bites noted on trunk. Assessment and Plan - Assessment and Plan (Free Text) Assessment: This is a 42 yo male with left abdominal wall cellulitis 1. Abdominal wall cellulitis -GI consult. recs appreciated. -previously considered to be Left upper quadrant abdominal swelling -General surgery consult, Dr. New, f/u recs - cont warm compresses - no drainable collection at this time - currently no surgical intervention needed -ID consult, Dr. Rome, f/u recs f/u vanco trough prior to 4th dose. Maintain between 10-20. -would appreciate recs from ID regarding pt's readiness for discharge. -continue IV zosyn and vanco. - Abd/Pelv CT w/IV contrast - Extensive fluid in the left lateral abdominal wall subcutaneous fat. This is of uncertain etiology, but could be due to recent trauma, i.e., represent resolving subcutaneous hemorrhage. Soft tissue infection is not excluded. No soft tissue gas or abscess is seen, but note that the left abdominal wall soft tissues are not completely included on the scan. - Small to moderate left pleural effusion. - See full report. -blood cultures negative x 5 days 2. Bronchitis -ventolin inhaler prn -robitussin dm -ID consult. recs appreciated. DR. Ward Rome. -advair diskus 1 puff q 12. -sputum culture negative. -chest ct pending. 3. HTN -continue losartan daily. 3.5 Hypertensive heart disease -echo from 2018 confirms 4. Pulmonary htn -pt has borderline pulmonary hypertension. -pulm consult. recs appreciated. 5. Morbid obesity -pt to be referred to vegetable tester upon discharge. 6. Prediabetes -most recent HGB a1c 6.0 -encourage healthy diet and lifestyle modifications. 7. Anemia -will order iron studies and stool occult blood -borderline normocytic/microcytic 8. GI/DVT ppx -SCDs -lovenox daily Case discussed with attending. All medical management as per Dr. Leonides Todd. <Ky Todd S - Last Filed: 11/22/17 18:42> Subjective - Subjective Subjective: Casein and discussed with the staff continue IV antibiotic possible discharge as soon as we speak with the oncology social worker and discharge planning and cleared by ID Objective - Vital Signs/Intake and Output Vital Signs (last 24 hours): Temp Pulse Resp BP Pulse Ox 98.3 F 91 H 20 149/89 97 11/22/17 15:15 11/22/17 15:15 11/22/17 15:15 11/22/17 15:15 11/22/17 15:15 Intake and Output: 11/22/17 11/22/17 06:59 18:59 Intake Total 1140 850 Output Total 2 Balance 1138 850 - Medications Medications: Current Medications Albuterol (Ventolin Hfa 90 Mcg/Actuation (8 G)) 2 puff IH RQ6 PRN PRN Reason: SOB Last Admin: 11/18/17 08:19 Dose: 2 puff Enoxaparin Sodium (Lovenox) 40 mg SC DAILY [facility] Last Admin: 11/22/17 10:47 Dose: 40 mg Guaifenesin/Dextromethorphan (Robitussin Dm) 15 ml PO Q6H [facility] Last Admin: 11/22/17 17:53 Dose: 15 ml Piperacillin Sod/Tazobactam Sod (Zosyn 3.375 In Ns 100ml) 100 mls @ 200 mls/hr IVPB Q8 [facility] Last Admin: 11/22/17 14:59 Dose: 200 mls/hr Vancomycin HCl 1,250 mg/ (Sodium Chloride) 250 mls @ 166.6 mls/hr IVPB Q12H [facility] Last Admin: 11/22/17 14:59 Dose: 166.6 mls/hr Losartan Potassium (Cozaar) 50 mg PO DAILY [facility] Last Admin: 11/22/17 10:47 Dose: 50 mg Pantoprazole Sodium (Protonix Ec Tab) 40 mg PO DAILY [facility] Last Admin: 11/22/17 10:47 Dose: 40 mg Fluticasone/Salmeterol (Advair Diskus 250/50) 1 puff INH RQ12 [facility] Last Admin: 11/21/17 19:09 Dose: 1 puff - Labs Labs: 11/22/17 10:36 11/22/17 10:36 Assessment and Plan (1) Abdominal pain Status: Acute (2) Left upper quadrant abdominal swelling Status: Acute (3) Bronchitis Status: Acute (4) Chronic venous stasis dermatitis Status: Acute (5) Cough Status: Acute (6) Influenza-like illness Status: Acute (7) Leg edema Status: Acute (8) Leg swelling Status: Acute (9) Morbid obesity Status: Acute (10) Pedal edema Status: Acute (11) Reactive airway disease Status: Acute
[2017-11-22 17:23] LABS: IRON 38 ug/dL (49-181)
[2017-11-22 17:32] LABS: % IRON SATURATION 12 (20-55); TOTAL IRON BINDING CAPACITY 330 ug/dL (250-450)
[2017-11-23] MEDS: guaiFENesin DM 100 mg-10 mg/5 ml UD PO SCH ×4 (00:54→17:30)
[2017-11-23] MEDS: Piperacillin/Tazobact 3.375 gm 100 ML IVPB SCH (05:26)
[2017-11-23 07:29] LABS: BASO # 0.1 K/uL (0.0-0.2); BASO % 0.7 % (0.0-2.0); EOS # 0.7 K/uL (0.0-0.7); EOS % 8.8 % (0.0-4.0); HEMOGLOBIN 11.4 g/dL (12.0-18.0); LYMPH # 1.8 K/uL (1.0-4.3); LYMPH % 22.7 % (20.0-40.0); MEAN CELL VOLUME 80.4 fL (80.0-94.0); MEAN CORPUSCULAR HEMOGLOBIN 27.7 pg (27.0-31.0); MEAN CORPUSCULAR HGB CONC 34.4 g/dL (33.0-37.0); MEAN PLATELET VOLUME 7.3 fL (7.2-11.7); MONO # 0.7 K/uL (0.0-0.8); MONO % 8.8 % (0.0-10.0); NEUT # 4.7 K/uL (1.8-7.0); NRBC % 0.1 % (0.0-2.0); RBC 4.13 Mil/uL (4.40-5.90); RED CELL DISTRIBUTION WIDTH 16.1 % (11.5-14.5); WHITE BLOOD COUNT 7.9 K/uL (4.8-10.8)
[2017-11-23 07:43] LABS: ALBUMIN 3.4 g/dL (3.5-5.0); ALT/SGPT 34 U/L (21-72); AST/SGOT 26 U/L (17-59); BLOOD UREA NITROGEN 8 mg/dL (9-20); CALCIUM 8.7 mg/dl (8.6-10.4); GFR AFRICAN-AMERICAN > 60; GFR NON-AFRICAN AMERICAN > 60
[2017-11-23] MEDS: Pantoprazole 40 mg EC Tab PO SCH (11:00)
[2017-11-23] MEDS: Enoxaparin 40 mg Syringe SC SCH (11:00)
[2017-11-23] MEDS: Fluticasone-Salmeterol 250-50mcg Diskus INH SCH ×2 (11:22→19:01)
--- NOTE | 2017-11-23 12:41 | CP.PCM.PN ---
Subjective - Date & Time of Evaluation Date of Evaluation: 11/23/17 Time of Evaluation: 12:38 - Subjective Subjective: General surgery note for Dr. New Pt s & e at bedside today. Pt complaints of left abdominal pain only when he coughs, but denies pain otherwise. Objective - Vital Signs/Intake and Output Vital Signs (last 24 hours): Temp Pulse Resp BP Pulse Ox 97.7 F 95 H 20 130/80 96 11/23/17 10:34 11/23/17 10:34 11/23/17 10:34 11/23/17 10:34 11/23/17 10:34 Intake and Output: 11/23/17 11/23/17 06:59 18:59 Intake Total 1650 Output Total 450 Balance 1200 - Medications Medications: Current Medications Albuterol (Ventolin Hfa 90 Mcg/Actuation (8 G)) 2 puff IH RQ6 PRN PRN Reason: SOB Last Admin: 11/18/17 08:19 Dose: 2 puff Enoxaparin Sodium (Lovenox) 40 mg SC DAILY [facility] Last Admin: 11/23/17 11:00 Dose: 40 mg Guaifenesin/Dextromethorphan (Robitussin Dm) 15 ml PO Q6H [facility] Last Admin: 11/23/17 05:58 Dose: 15 ml Vancomycin HCl 1,250 mg/ (Sodium Chloride) 250 mls @ 166.6 mls/hr IVPB Q12H [facility] Last Admin: 11/23/17 02:40 Dose: 166.6 mls/hr Azithromycin (Zithromax 500mg In Ns Addvantage) 500 mg in 250 mls @ 167 mls/hr IVPB Q24H [facility] PRN Reason: Protocol Last Admin: 11/23/17 00:00 Dose: 167 mls/hr Piperacillin Sod/Tazobactam Sod (Zosyn 3.375 Gm Iv Premix) 3.375 gm in 50 mls @ 100 mls/hr IVPB Q8 [facility] Losartan Potassium (Cozaar) 50 mg PO DAILY [facility] Last Admin: 11/23/17 11:00 Dose: 50 mg Pantoprazole Sodium (Protonix Ec Tab) 40 mg PO DAILY [facility] Last Admin: 11/23/17 11:00 Dose: 40 mg Fluticasone/Salmeterol (Advair Diskus 250/50) 1 puff INH RQ12 [facility] Last Admin: 11/23/17 11:22 Dose: 1 puff - Labs Labs: 11/23/17 07:19 11/23/17 07:19 - Constitutional Appears: No Acute Distress - Head Exam Head Exam: NORMAL INSPECTION, NORMOCEPHALIC - GI/Abdominal Exam GI & Abdominal Exam: Soft. absent: Tenderness - Skin Skin Exam: Dry Additional comments: rough patchy area of excoriation on left abdominal wall Assessment and Plan - Assessment and Plan (Free Text) Assessment: 42M with left abdominal wall cellulitis Plan: Skin condition remains unchanged No leukocytosis, or fevers No identifiable fluid collection No surgical intervention needed, discussed with Dr. Virgen Ragland, PGY3
[2017-11-23] MEDS: Piperacill/Tazo 3.375gm in Dex 3.375 GM/50 ML BAG IVPB SCH ×2 (13:50→21:32)
--- NOTE | 2017-11-23 15:06 | CP.PCM.PN ---
<Frakn Martinez - Last Filed: 11/23/17 15:08> Subjective - Date & Time of Evaluation Date of Evaluation: 11/23/17 Time of Evaluation: 15:09 - Subjective Subjective: PGY2 Medicine note for Dr. Leonides de león; all management as per Dr. Leonides de león patient seen and examined at bedside this AM; still complaining of abdominal pain, but denies fevers/chills, OTT, CP, SOB, or lower extremity pain/swelling. Objective - Vital Signs/Intake and Output Vital Signs (last 24 hours): Temp Pulse Resp BP Pulse Ox 97.7 F 95 H 20 130/80 96 11/23/17 10:34 11/23/17 10:34 11/23/17 10:34 11/23/17 10:34 11/23/17 10:34 Intake and Output: 11/23/17 11/23/17 06:59 18:59 Intake Total 1650 800 Output Total 450 Balance 1200 800 - Medications Medications: Current Medications Albuterol (Ventolin Hfa 90 Mcg/Actuation (8 G)) 2 puff IH RQ6 PRN PRN Reason: SOB Last Admin: 11/18/17 08:19 Dose: 2 puff Enoxaparin Sodium (Lovenox) 40 mg SC DAILY [facility] Last Admin: 11/23/17 11:00 Dose: 40 mg Guaifenesin/Dextromethorphan (Robitussin Dm) 15 ml PO Q6H [facility] Last Admin: 11/23/17 12:52 Dose: 15 ml Vancomycin HCl 1,250 mg/ (Sodium Chloride) 250 mls @ 166.6 mls/hr IVPB Q12H [facility] Last Admin: 11/23/17 14:59 Dose: 166.6 mls/hr Azithromycin (Zithromax 500mg In Ns Addvantage) 500 mg in 250 mls @ 167 mls/hr IVPB Q24H [facility] PRN Reason: Protocol Last Admin: 11/23/17 00:00 Dose: 167 mls/hr Piperacillin Sod/Tazobactam Sod (Zosyn 3.375 Gm Iv Premix) 3.375 gm in 50 mls @ 100 mls/hr IVPB Q8 [facility] Last Admin: 11/23/17 13:50 Dose: 100 mls/hr Losartan Potassium (Cozaar) 50 mg PO DAILY [facility] Last Admin: 11/23/17 11:00 Dose: 50 mg Pantoprazole Sodium (Protonix Ec Tab) 40 mg PO DAILY [facility] Last Admin: 11/23/17 11:00 Dose: 40 mg Fluticasone/Salmeterol (Advair Diskus 250/50) 1 puff INH RQ12 [facility] Last Admin: 11/23/17 11:22 Dose: 1 puff - Labs Labs: 11/23/17 07:19 11/23/17 07:19 - Head Exam Additional comments: Appears: Non-toxic, No Acute Distress, Chronically Ill - Head Exam Head Exam: ATRAUMATIC, NORMAL INSPECTION, NORMOCEPHALIC - Eye Exam Eye Exam: EOMI - ENT Exam ENT Exam: Mucous Membranes Moist - Neck Exam Neck Exam: Full ROM, Normal Inspection - Respiratory Exam Respiratory Exam: absent: Respiratory Distress - Cardiovascular Exam Cardiovascular Exam: +S1, +S2 - GI/Abdominal Exam Additional comments: Cellulitis improving. - Extremities Exam Extremities Exam: Full ROM, Normal Inspection - Back Exam Back Exam: NORMAL INSPECTION - Neurological Exam Neurological Exam: Alert, Awake, CN II-XII Intact, Oriented x3 - Psychiatric Exam Psychiatric exam: Flat Affect Assessment and Plan - Assessment and Plan (Free Text) Assessment: This is a 42 yo male with left abdominal wall cellulitis Abdominal wall cellulitis -GI consult. recs appreciated. -previously considered to be Left upper quadrant abdominal swelling -General surgery consult, Dr. New, f/u recs - cont warm compresses - no drainable collection at this time - currently no surgical intervention needed -ID consult, Dr. Rome, f/u recs f/u vanco trough prior to 4th dose. Maintain between 10-20. -would appreciate recs from ID regarding pt's readiness for discharge. -continue IV zosyn and vanco. - Abd/Pelv CT w/IV contrast - Extensive fluid in the left lateral abdominal wall subcutaneous fat. This is of uncertain etiology, but could be due to recent trauma, i.e., represent resolving subcutaneous hemorrhage. Soft tissue infection is not excluded. No soft tissue gas or abscess is seen, but note that the left abdominal wall soft tissues are not completely included on the scan. - Small to moderate left pleural effusion. - See full report. -blood cultures negative x 5 days Bronchitis -ventolin inhaler prn -robitussin dm -ID consult. recs appreciated. DR. Ward Rome. -advair diskus 1 puff q 12. -sputum culture negative. -chest ct pending. HTN;chronic -continue losartan daily. Pulmonary htn -pt has borderline pulmonary hypertension. -pulm consult. recs appreciated. Morbid obesity -pt to be referred to health center assistant upon discharge. Prediabetes -most recent HGB a1c 6.0 -encourage healthy diet and lifestyle modifications will add metformin Anemia -iron studies show iron deficiency anemia; will add IV iron -stool occult negative -borderline normocytic/microcytic GI/DVT ppx -SCDs -lovenox daily All management as per Dr. Leonides De León <Ky De León - Last Filed: 11/23/17 21:33> Objective - Vital Signs/Intake and Output Vital Signs (last 24 hours): Temp Pulse Resp BP Pulse Ox 97.7 F 97 H 20 134/81 98 11/23/17 15:15 11/23/17 15:15 11/23/17 15:15 11/23/17 15:15 11/23/17 15:15 Intake and Output: 11/23/17 11/24/17 18:59 06:59 Intake Total 800 Balance 800 - Medications Medications: Current Medications Albuterol (Ventolin Hfa 90 Mcg/Actuation (8 G)) 2 puff IH RQ6 PRN PRN Reason: SOB Last Admin: 11/18/17 08:19 Dose: 2 puff Aspirin (Ecotrin) 81 mg PO DAILY [facility] Enoxaparin Sodium (Lovenox) 40 mg SC DAILY [facility] Last Admin: 11/23/17 11:00 Dose: 40 mg Ferric Sodium Gluconate Complex (Ferrlecit) 125 mg IVPB DAILY [facility] Stop: 12/02/17 10:01 Guaifenesin/Dextromethorphan (Robitussin Dm) 15 ml PO Q6H [facility] Last Admin: 11/23/17 17:30 Dose: 15 ml Vancomycin HCl 1,250 mg/ (Sodium Chloride) 250 mls @ 166.6 mls/hr IVPB Q12H [facility] Last Admin: 11/23/17 14:59 Dose: 166.6 mls/hr Azithromycin (Zithromax 500mg In Ns Addvantage) 500 mg in 250 mls @ 167 mls/hr IVPB Q24H [facility] PRN Reason: Protocol Last Admin: 11/23/17 00:00 Dose: 167 mls/hr Piperacillin Sod/Tazobactam Sod (Zosyn 3.375 Gm Iv Premix) 3.375 gm in 50 mls @ 100 mls/hr IVPB Q8 [facility] Last Admin: 11/23/17 21:32 Dose: 100 mls/hr Losartan Potassium (Cozaar) 50 mg PO DAILY [facility] Last Admin: 11/23/17 11:00 Dose: 50 mg Metformin HCl (Glucophage Xr) 500 mg PO HS [facility] Last Admin: 11/23/17 21:32 Dose: 500 mg Pantoprazole Sodium (Protonix Ec Tab) 40 mg PO DAILY [facility] Last Admin: 11/23/17 11:00 Dose: 40 mg Fluticasone/Salmeterol (Advair Diskus 250/50) 1 puff INH RQ12 [facility] Last Admin: 11/23/17 19:01 Dose: 1 puff Senna/Docusate Sodium (Senokot S 50 Mg-8.6 Mg) 1 tab PO BID [facility] Last Admin: 11/23/17 17:30 Dose: 1 tab - Labs Labs: 11/23/17 07:19 11/23/17 07:19 Assessment and Plan (1) Abdominal pain Status: Acute (2) Left upper quadrant abdominal swelling Status: Acute (3) Bronchitis Status: Acute (4) Chronic venous stasis dermatitis Status: Acute (5) Cough Status: Acute (6) Influenza-like illness Status: Acute (7) Leg edema Status: Acute (8) Leg swelling Status: Acute (9) Morbid obesity Status: Acute (10) Pedal edema Status: Acute (11) Reactive airway disease Status: Acute Attending/Attestation - Attestation I have personally seen and examined this patient.: Yes I have fully participated in the care of the patient.: Yes I have reviewed all pertinent clinical information, including history, physical exam and plan: Yes Notes (Text): 11/23/17 21:33 case seen and d/w staff and resdientr
[2017-11-23] MEDS: Docusate-Senna 50 mg-8.6 mg Tab PO SCH (17:30)
--- NOTE | 2017-11-23 20:36 | CP.PCM.PN ---
Subjective - Date & Time of Evaluation Date of Evaluation: 11/23/17 Time of Evaluation: 20:36 - Subjective Subjective: AFEBRILE. VSS STILL C/O PERSISTANT COUGH. AND LT SIDE PLEURITIC CHEST PAIN. DENIES SOB, HEMOPTYSIS. STILL WITH LT ABDOMIAL WALL PAIN ON COUGHING. LABS/RADIOLOGY CT CHEST WITH CONTRAST REVIEWED; mODERATE LEFT PLEURAL EFFUSION, ANGE INFILTRATE VS ATELECTASIS LLL ATELECTASIS ABNORMAL SOFT TISSUE/FLUID DENSITY LEFT CHEST WALL. CASE DISCUSSED WITH PMD >Pulmonary consult in progress . w/u for pneumonia ESR 72 -HIGH CHECK QUANTIferon gOLD TB TEST. ? THORACENTESIS AND APPROPRIATE BACTERIAL.AFB,FUNGAL CULTURES . CONTINUE IV ABX, Objective - Vital Signs/Intake and Output Vital Signs (last 24 hours): Temp Pulse Resp BP Pulse Ox 97.7 F 97 H 20 134/81 98 11/23/17 15:15 11/23/17 15:15 11/23/17 15:15 11/23/17 15:15 11/23/17 15:15 Intake and Output: 11/23/17 11/24/17 18:59 06:59 Intake Total 800 Balance 800 - Medications Medications: Current Medications Albuterol (Ventolin Hfa 90 Mcg/Actuation (8 G)) 2 puff IH RQ6 PRN PRN Reason: SOB Last Admin: 11/18/17 08:19 Dose: 2 puff Aspirin (Ecotrin) 81 mg PO DAILY [facility] Enoxaparin Sodium (Lovenox) 40 mg SC DAILY [facility] Last Admin: 11/23/17 11:00 Dose: 40 mg Ferric Sodium Gluconate Complex (Ferrlecit) 125 mg IVPB DAILY [facility] Stop: 12/02/17 10:01 Guaifenesin/Dextromethorphan (Robitussin Dm) 15 ml PO Q6H [facility] Last Admin: 11/23/17 17:30 Dose: 15 ml Vancomycin HCl 1,250 mg/ (Sodium Chloride) 250 mls @ 166.6 mls/hr IVPB Q12H [facility] Last Admin: 11/23/17 14:59 Dose: 166.6 mls/hr Azithromycin (Zithromax 500mg In Ns Addvantage) 500 mg in 250 mls @ 167 mls/hr IVPB Q24H [facility] PRN Reason: Protocol Last Admin: 11/23/17 00:00 Dose: 167 mls/hr Piperacillin Sod/Tazobactam Sod (Zosyn 3.375 Gm Iv Premix) 3.375 gm in 50 mls @ 100 mls/hr IVPB Q8 [facility] Last Admin: 11/23/17 13:50 Dose: 100 mls/hr Losartan Potassium (Cozaar) 50 mg PO DAILY [facility] Last Admin: 11/23/17 11:00 Dose: 50 mg Metformin HCl (Glucophage Xr) 500 mg PO HS [facility] Pantoprazole Sodium (Protonix Ec Tab) 40 mg PO DAILY [facility] Last Admin: 11/23/17 11:00 Dose: 40 mg Fluticasone/Salmeterol (Advair Diskus 250/50) 1 puff INH RQ12 [facility] Last Admin: 11/23/17 19:01 Dose: 1 puff Senna/Docusate Sodium (Senokot S 50 Mg-8.6 Mg) 1 tab PO BID [facility] Last Admin: 11/23/17 17:30 Dose: 1 tab - Labs Labs: 11/23/17 07:19 11/23/17 07:19 - Constitutional Appears: No Acute Distress - Head Exam Head Exam: NORMAL INSPECTION - Eye Exam Eye Exam: EOMI, PERRL - ENT Exam ENT Exam: Normal Oropharynx - Neck Exam Neck Exam: Normal Inspection - Respiratory Exam Respiratory Exam: Decreased Breath Sounds (BS LT BASE.), Rhonchi - Cardiovascular Exam Cardiovascular Exam: REGULAR RHYTHM, +S1, +S2 - GI/Abdominal Exam GI & Abdominal Exam: Soft, Tenderness (LEFT LATERAL WALL/SKIN INDURATION/STRIA- STRETCH KERN +VE), Normal Bowel Sounds - Extremities Exam Extremities Exam: Pedal Edema. absent: Calf Tenderness - Neurological Exam Neurological Exam: Awake, CN II-XII Intact, Oriented x3, Reflexes Normal - Psychiatric Exam Psychiatric exam: Normal Mood - Skin Skin Exam: Normal Color, Warm Assessment and Plan (1) Left upper quadrant abdominal swelling Status: Acute (2) Pneumonia Assessment & Plan: W/U FOR ANGE PNEUMONIA/LT PLEURAL EFFUSION PULMONARY CONSULT IN PROGRESS. Status: Acute (3) Bronchitis Status: Acute (4) Morbid obesity Status: Acute
--- NOTE | 2017-11-23 21:34 | CP.PCM.PN ---
Subjective - Date & Time of Evaluation Date of Evaluation: 11/23/17 Time of Evaluation: 10:15 - Subjective Subjective: clinically same Objective - Vital Signs/Intake and Output Vital Signs (last 24 hours): Temp Pulse Resp BP Pulse Ox 97.7 F 97 H 20 134/81 98 11/23/17 15:15 11/23/17 15:15 11/23/17 15:15 11/23/17 15:15 11/23/17 15:15 Intake and Output: 11/23/17 11/24/17 18:59 06:59 Intake Total 800 Balance 800 - Medications Medications: Current Medications Albuterol (Ventolin Hfa 90 Mcg/Actuation (8 G)) 2 puff IH RQ6 PRN PRN Reason: SOB Last Admin: 11/18/17 08:19 Dose: 2 puff Aspirin (Ecotrin) 81 mg PO DAILY [facility] Enoxaparin Sodium (Lovenox) 40 mg SC DAILY [facility] Last Admin: 11/23/17 11:00 Dose: 40 mg Ferric Sodium Gluconate Complex (Ferrlecit) 125 mg IVPB DAILY [facility] Stop: 12/02/17 10:01 Guaifenesin/Dextromethorphan (Robitussin Dm) 15 ml PO Q6H [facility] Last Admin: 11/23/17 17:30 Dose: 15 ml Vancomycin HCl 1,250 mg/ (Sodium Chloride) 250 mls @ 166.6 mls/hr IVPB Q12H [facility] Last Admin: 11/23/17 14:59 Dose: 166.6 mls/hr Azithromycin (Zithromax 500mg In Ns Addvantage) 500 mg in 250 mls @ 167 mls/hr IVPB Q24H [facility] PRN Reason: Protocol Last Admin: 11/23/17 00:00 Dose: 167 mls/hr Piperacillin Sod/Tazobactam Sod (Zosyn 3.375 Gm Iv Premix) 3.375 gm in 50 mls @ 100 mls/hr IVPB Q8 [facility] Last Admin: 11/23/17 21:32 Dose: 100 mls/hr Losartan Potassium (Cozaar) 50 mg PO DAILY [facility] Last Admin: 11/23/17 11:00 Dose: 50 mg Metformin HCl (Glucophage Xr) 500 mg PO HS [facility] Last Admin: 11/23/17 21:32 Dose: 500 mg Pantoprazole Sodium (Protonix Ec Tab) 40 mg PO DAILY [facility] Last Admin: 11/23/17 11:00 Dose: 40 mg Fluticasone/Salmeterol (Advair Diskus 250/50) 1 puff INH RQ12 [facility] Last Admin: 11/23/17 19:01 Dose: 1 puff Senna/Docusate Sodium (Senokot S 50 Mg-8.6 Mg) 1 tab PO BID [facility] Last Admin: 11/23/17 17:30 Dose: 1 tab - Labs Labs: 11/23/17 07:19 11/23/17 07:19 - Constitutional Appears: Well - Head Exam Head Exam: ATRAUMATIC, NORMAL INSPECTION, NORMOCEPHALIC - Eye Exam Eye Exam: EOMI, Normal appearance, PERRL Pupil Exam: NORMAL ACCOMODATION, PERRL - ENT Exam ENT Exam: Mucous Membranes Moist, Normal Exam - Neck Exam Neck Exam: Full ROM, Normal Inspection. absent: Lymphadenopathy - Respiratory Exam Respiratory Exam: Decreased Breath Sounds - Cardiovascular Exam Cardiovascular Exam: REGULAR RHYTHM, +S1, +S2 - GI/Abdominal Exam GI & Abdominal Exam: Soft, Diminished Bowel Sounds - Rectal Exam Rectal Exam: Deferred Assessment and Plan (1) Abdominal pain Status: Acute (2) Left upper quadrant abdominal swelling Status: Acute (3) Bronchitis Status: Acute (4) Chronic venous stasis dermatitis Status: Acute (5) Cough Status: Acute (6) Influenza-like illness Status: Acute (7) Leg edema Status: Acute (8) Leg swelling Status: Acute (9) Morbid obesity Status: Acute (10) Pedal edema Status: Acute (11) Reactive airway disease Status: Acute - Assessment and Plan (Free Text) Plan: Assessment: This is a 42 yo male with left abdominal wall cellulitis Abdominal wall cellulitis -GI consult. recs appreciated. -previously considered to be Left upper quadrant abdominal swelling -General surgery consult, Dr. New, f/u recs - cont warm compresses - no drainable collection at this time - currently no surgical intervention needed -ID consult, Dr. Rome, f/u recs f/u vanco trough prior to 4th dose. Maintain between 10-20. -would appreciate recs from ID regarding pt's readiness for discharge. -continue IV zosyn and vanco. - Abd/Pelv CT w/IV contrast - Extensive fluid in the left lateral abdominal wall subcutaneous fat. This is of uncertain etiology, but could be due to recent trauma, i.e., represent resolving subcutaneous hemorrhage. Soft tissue infection is not excluded. No soft tissue gas or abscess is seen, but note that the left abdominal wall soft tissues are not completely included on the scan. - Small to moderate left pleural effusion. - See full report. -blood cultures negative x 5 days Bronchitis -ventolin inhaler prn -robitussin dm -ID consult. recs appreciated. DR. Ward Rome. -advair diskus 1 puff q 12. -sputum culture negative. -chest ct pending. HTN;chronic -continue losartan daily. Pulmonary htn -pt has borderline pulmonary hypertension. -pulm consult. recs appreciated. Morbid obesity -pt to be referred to fire prevention forester upon discharge. Prediabetes -most recent HGB a1c 6.0 -encourage healthy diet and lifestyle modifications will add metformin Anemia -iron studies show iron deficiency anemia; will add IV iron -stool occult negative -borderline normocytic/microcytic GI/DVT ppx -SCDs -lovenox daily Warm compress to the left side Discharge planning Clearance from ID Follow-up with the surgery as and when needed Continue same Medication as ordered
[2017-11-23] MEDS: Azithromycin 500mg/250ML NS 500 MG/250 ML BAG IVPB SCH ×2 (22:34)
[2017-11-24] MEDS: guaiFENesin DM 100 mg-10 mg/5 ml UD PO SCH ×4 (00:26→18:43)
[2017-11-24] MEDS: Piperacill/Tazo 3.375gm in Dex 3.375 GM/50 ML BAG IVPB SCH ×3 (06:09→21:24)
[2017-11-24] MEDS: Fluticasone-Salmeterol 250-50mcg Diskus INH SCH ×2 (08:06→19:55)
[2017-11-24] MEDS: Enoxaparin 40 mg Syringe SC SCH (09:40)
[2017-11-24] MEDS: Pantoprazole 40 mg EC Tab PO SCH (09:40)
[2017-11-24] MEDS: Docusate-Senna 50 mg-8.6 mg Tab PO SCH ×2 (09:42→18:47)
[2017-11-24] MEDS: Ferric Sodium Gluconat Complex 62.5 mg/5 ml Vial IVPB SCH ×2 (09:52→14:39)
--- NOTE | 2017-11-24 10:24 | CP.PCM.PN ---
Subjective - Date & Time of Evaluation Date of Evaluation: 11/24/17 Time of Evaluation: 07:00 - Subjective Subjective: PGY2 Medicine note for Dr. Leonides Todd Patient seen and examined at bedside this AM; Reports L chest wall cellulitis is improving, denies pain at the site. Admits to mild pleuritic pain with deep inspiration. Feels more SOB than usual. Denies fevers/chills, OTT, CP, or lower extremity pain/swelling. Objective - Vital Signs/Intake and Output Vital Signs (last 24 hours): Temp Pulse Resp BP Pulse Ox 97.6 F 105 H 20 132/80 95 11/24/17 08:22 11/24/17 08:22 11/24/17 08:22 11/24/17 08:22 11/24/17 08:22 Intake and Output: 11/24/17 11/24/17 06:59 18:59 Intake Total 800 550 Balance 800 550 - Medications Medications: Current Medications Albuterol (Ventolin Hfa 90 Mcg/Actuation (8 G)) 2 puff IH RQ6 PRN PRN Reason: SOB Last Admin: 11/18/17 08:19 Dose: 2 puff Aspirin (Ecotrin) 81 mg PO DAILY [facility] Last Admin: 11/24/17 09:40 Dose: 81 mg Enoxaparin Sodium (Lovenox) 40 mg SC DAILY [facility] Last Admin: 11/24/17 09:40 Dose: 40 mg Ferric Sodium Gluconate Complex (Ferrlecit) 125 mg IVPB DAILY [facility] Stop: 12/02/17 10:01 Last Admin: 11/24/17 09:52 Dose: 125 mg Guaifenesin/Dextromethorphan (Robitussin Dm) 15 ml PO Q6H [facility] Last Admin: 11/24/17 06:11 Dose: 15 ml Vancomycin HCl 1,250 mg/ (Sodium Chloride) 250 mls @ 166.6 mls/hr IVPB Q12H [facility] Last Admin: 11/24/17 03:25 Dose: 166.6 mls/hr Azithromycin (Zithromax 500mg In Ns Addvantage) 500 mg in 250 mls @ 167 mls/hr IVPB Q24H [facility] PRN Reason: Protocol Last Admin: 11/23/17 22:34 Dose: 167 mls/hr Piperacillin Sod/Tazobactam Sod (Zosyn 3.375 Gm Iv Premix) 3.375 gm in 50 mls @ 100 mls/hr IVPB Q8 [facility] Last Admin: 11/24/17 06:09 Dose: 100 mls/hr Losartan Potassium (Cozaar) 50 mg PO DAILY [facility] Last Admin: 11/24/17 09:40 Dose: 50 mg Metformin HCl (Glucophage Xr) 500 mg PO HS [facility] Last Admin: 11/23/17 21:32 Dose: 500 mg Pantoprazole Sodium (Protonix Ec Tab) 40 mg PO DAILY [facility] Last Admin: 11/24/17 09:40 Dose: 40 mg Fluticasone/Salmeterol (Advair Diskus 250/50) 1 puff INH RQ12 [facility] Last Admin: 11/24/17 08:06 Dose: 1 puff Senna/Docusate Sodium (Senokot S 50 Mg-8.6 Mg) 1 tab PO BID [facility] Last Admin: 11/24/17 09:42 Dose: Not Given - Labs Labs: 11/23/17 07:19 11/23/17 07:19 - Additional Findings Additional findings: - Head Exam Additional comments: Appears: Non-toxic, No Acute Distress, Chronically Ill - Head Exam Head Exam: ATRAUMATIC, NORMAL INSPECTION, NORMOCEPHALIC - Eye Exam Eye Exam: EOMI - ENT Exam ENT Exam: Mucous Membranes Moist - Neck Exam Neck Exam: Full ROM, Normal Inspection - Respiratory Exam Respiratory Exam: absent: Respiratory Distress - Cardiovascular Exam Cardiovascular Exam: +S1, +S2 - GI/Abdominal Exam Additional comments: Cellulitis improving. - Extremities Exam Extremities Exam: Full ROM, Normal Inspection - Back Exam Back Exam: NORMAL INSPECTION - Neurological Exam Neurological Exam: Alert, Awake, CN II-XII Intact, Oriented x3 - Psychiatric Exam Psychiatric exam: Flat Affect Assessment and Plan - Assessment and Plan (Free Text) Assessment: This is a 42 yo male with left abdominal wall cellulitis Abdominal wall cellulitis 11/24: Cellulitis is improving. Site previously tender, currently non-tender. Minimal warmth. -continue IV zosyn and vanco. f/u Dr. Rome (ID) recs. -GI consult. recs appreciated. -previously considered to be Left upper quadrant abdominal swelling -General surgery consult, Dr. New, f/u recs - cont warm compresses - no drainable collection at this time - currently no surgical intervention needed -ID consult, Dr. Rome, f/u recs f/u vanco trough prior to 4th dose. Maintain between 10-20. -would appreciate recs from ID regarding pt's readiness for discharge. - Abd/Pelv CT w/IV contrast - Extensive fluid in the left lateral abdominal wall subcutaneous fat. This is of uncertain etiology, but could be due to recent trauma, i.e., represent resolving subcutaneous hemorrhage. Soft tissue infection is not excluded. No soft tissue gas or abscess is seen, but note that the left abdominal wall soft tissues are not completely included on the scan. - Small to moderate left pleural effusion. - See full report. -blood cultures negative x 5 days Pleural Effusion 11/24: patient with pleuritic chest pain. IR consult for thoracentesis -> 60cc serosanguinous fluid removed -f/u pleural fluid analysis 11/22: Chest CT - L pleural effusion, LLL atelectasis, see full report. Bronchitis -ventolin inhaler prn -robitussin dm -ID consult. recs appreciated. DR. Ward Rome. -advair diskus 1 puff q 12. -sputum culture negative. -chest ct pending. HTN;chronic -continue losartan daily. Pulmonary htn -pt has borderline pulmonary hypertension. -pulm consult. recs appreciated. Morbid obesity -pt to be referred to bag filler machine operator upon discharge. Prediabetes -most recent HGB a1c 6.0 -encourage healthy diet and lifestyle modifications will add metformin Anemia -iron studies show iron deficiency anemia; will add IV iron -stool occult negative -borderline normocytic/microcytic GI/DVT ppx -SCDs -lovenox daily Disposition: When ultimately stable and workup/treatment completed, patient will be discharge back to [facility]. Must notify director social welfare in the AM for an early discharge. All management as per Dr. Leonides Todd
[2017-11-24 11:22] LABS: BASO # 0.1 K/uL (0.0-0.2); EOS # 0.6 K/uL (0.0-0.7); EOS % 7.4 % (0.0-4.0); LYMPH # 1.7 K/uL (1.0-4.3); LYMPH % 21.9 % (20.0-40.0); MEAN CELL VOLUME 80.3 fL (80.0-94.0); MEAN CORPUSCULAR HEMOGLOBIN 27.3 pg (27.0-31.0); MEAN CORPUSCULAR HGB CONC 33.9 g/dL (33.0-37.0); MEAN PLATELET VOLUME 7.2 fL (7.2-11.7); MONO # 0.8 K/uL (0.0-0.8); MONO % 10.2 % (0.0-10.0); NEUT # 4.6 K/uL (1.8-7.0); NEUT % 59.5 % (50.0-75.0); NRBC % 0.1 % (0.0-2.0); RBC 4.05 Mil/uL (4.40-5.90); WHITE BLOOD COUNT 7.7 K/uL (4.8-10.8)
[2017-11-24 11:27] LABS: INR 1.2; PROTHROMBIN TIME 13.8 SECONDS (9.7-12.2)
[2017-11-24 11:39] LABS: ALBUMIN 3.4 g/dL (3.5-5.0); ALT/SGPT 35 U/L (21-72); AST/SGOT 24 U/L (17-59); BLOOD UREA NITROGEN 8 mg/dL (9-20); CALCIUM 8.3 mg/dl (8.6-10.4); GFR AFRICAN-AMERICAN > 60; GFR NON-AFRICAN AMERICAN > 60
--- NOTE | 2017-11-24 13:22 | CP.PCM.CON ---
History of Present Illness - History of Present Illness History of Present Illness: The Patient was seen and examined at the bedside, Medical records reviewed, and management issues were discussed and formulated with the house staff. Patient is 42 year old male with PMHxof HTN and morbid obesity presents to the ER on 11/14 with a complaint of pain and swelling to the left abdominal area that worsens with movement and coughing for the past 2 weeks after being diagnosed with bronchitis. Patient currently treated for ANGE PNEUMONIA and left abdominal wall cellulitis He underwent chest CT scan today revealed moderate amount of left pleural effusion. On Exam, he is sitting comfortable in bed AAOx3, complain of dyspnea on exertion, Denies fever, nausea, vomiting, or urinary symptoms. Review of Systems - Constitutional Constitutional: As Per HPI. absent: Chills, Excessive Sweating, Fatigue, Fever - Cardiovascular Cardiovascular: absent: Chest Pain, Chest Pain at Rest, Chest Pain with Activity , Claudication, Diaphoresis - Respiratory Respiratory: Cough, Dyspnea, Dyspnea on Exertion, Wheezing, Snoring, Chest Congestion. absent: Hemoptysis, Stridor, Pain on Inspiration, Excessive Mucous Production - Gastrointestinal Gastrointestinal: absent: Abdominal Pain, Nausea, Vomiting Past Patient History - Infectious Disease Hx of Infectious Diseases: None - Past Medical History & Family History Past Medical History?: No - Past Social History Smoking Status: Light Smoker < 10 Cigarettes Daily - CARDIAC Hx Hypertension: Yes - ENDOCRINE/METABOLIC Other/Comment: Obesity as per patient - MUSCULOSKELETAL/RHEUMATOLOGICAL Hx Falls: No - PSYCHIATRIC Hx Depression: Yes Hx Substance Use: Yes - SURGICAL HISTORY Hx Surgeries: No - ANESTHESIA Hx Anesthesia: No Hx Anesthesia Reactions: No Hx Malignant Hyperthermia: No Meds Home Medications: Home Medication List Medication Instructions Recorded Confirmed Type Amoxicillin/Clavulanate [Augmentin 1 tab PO Q12 #20 tab 11/21/17 Rx 875 MG-125 MG] Saccharomyces Boulardi [Florastor] 250 mg PO Q12 #20 cap 11/21/17 Rx Allergies/Adverse Reactions: Allergies Allergy/AdvReac Type Severity Reaction Status Date / Time No Known Allergies Allergy Verified 11/14/17 19:09 - Medications Medications: Current Medications Albuterol (Ventolin Hfa 90 Mcg/Actuation (8 G)) 2 puff IH RQ6 PRN PRN Reason: SOB Last Admin: 11/18/17 08:19 Dose: 2 puff Aspirin (Ecotrin) 81 mg PO DAILY [facility] Last Admin: 11/24/17 09:40 Dose: 81 mg Enoxaparin Sodium (Lovenox) 40 mg SC DAILY [facility] Last Admin: 11/24/17 09:40 Dose: 40 mg Ferric Sodium Gluconate Complex (Ferrlecit) 125 mg IVPB DAILY [facility] Stop: 12/02/17 10:01 Last Admin: 11/24/17 09:52 Dose: 125 mg Guaifenesin/Dextromethorphan (Robitussin Dm) 15 ml PO Q6H [facility] Last Admin: 11/24/17 11:28 Dose: 15 ml Vancomycin HCl 1,250 mg/ (Sodium Chloride) 250 mls @ 166.6 mls/hr IVPB Q12H [facility] Last Admin: 11/24/17 03:25 Dose: 166.6 mls/hr Azithromycin (Zithromax 500mg In Ns Addvantage) 500 mg in 250 mls @ 167 mls/hr IVPB Q24H [facility] PRN Reason: Protocol Last Admin: 11/23/17 22:34 Dose: 167 mls/hr Piperacillin Sod/Tazobactam Sod (Zosyn 3.375 Gm Iv Premix) 3.375 gm in 50 mls @ 100 mls/hr IVPB Q8 [facility] Last Admin: 11/24/17 06:09 Dose: 100 mls/hr Losartan Potassium (Cozaar) 50 mg PO DAILY [facility] Last Admin: 11/24/17 09:40 Dose: 50 mg Metformin HCl (Glucophage Xr) 500 mg PO HS [facility] Last Admin: 11/23/17 21:32 Dose: 500 mg Pantoprazole Sodium (Protonix Ec Tab) 40 mg PO DAILY [facility] Last Admin: 11/24/17 09:40 Dose: 40 mg Fluticasone/Salmeterol (Advair Diskus 250/50) 1 puff INH RQ12 [facility] Last Admin: 11/24/17 08:06 Dose: 1 puff Senna/Docusate Sodium (Senokot S 50 Mg-8.6 Mg) 1 tab PO BID [facility] Last Admin: 11/24/17 09:42 Dose: Not Given Physical Exam - Constitutional Appears: Well, Non-toxic, No Acute Distress - Head Exam Head Exam: ATRAUMATIC, NORMAL INSPECTION, NORMOCEPHALIC - Eye Exam Eye Exam: EOMI, Normal appearance. absent: Conjunctival injection Pupil Exam: NORMAL ACCOMODATION - ENT Exam ENT Exam: Mucous Membranes Moist - Neck Exam Neck exam: Positive for: Full Rom, Normal Inspection. Negative for: Tenderness , Thyromegaly - Respiratory Exam Respiratory Exam: Decreased Breath Sounds, Prolonged Expiratory Phase, Rhonchi. absent: Accessory Muscle Use, Chest Wall Tenderness, Rales, Wheezes - Cardiovascular Exam Cardiovascular Exam: REGULAR RHYTHM, RRR, +S1, +S2. absent: Tachycardia, Clicks , Diastolic murmur, JVD - GI/Abdominal Exam GI & Abdominal Exam: Distended, Normal Bowel Sounds, Tenderness (left abdominal wall cellulitis). absent: Diminished Bowel Sounds, Firm, Guarding, Hernia, Mass - Extremities Exam Extremities exam: Positive for: full ROM, normal capillary refill, pedal edema, pedal pulses present. Negative for: calf tenderness, joint swelling, normal inspection (Stasis and chronic changes), tenderness Results - Vital Signs Recent Vital Signs: Last Vital Signs Temp 97.6 F 11/24/17 08:22 Pulse 105 H 11/24/17 08:22 Resp 20 11/24/17 08:22 BP 132/80 11/24/17 08:22 Pulse Ox 95 11/24/17 08:22 - Labs Result Diagrams: 12/05/17 07:39 12/05/17 07:39 Labs: Laboratory Results - last 24 hr 11/23/17 11/23/17 11/23/17 07:19 13:30 14:11 WBC RBC Hgb Hct MCV MCH MCHC RDW Plt Count MPV Neut % (Auto) Lymph % (Auto) Hooker % (Auto) Eos % (Auto) Baso % (Auto) Neut # (Auto) Lymph # (Auto) Hooker # (Auto) Eos # (Auto) Baso # (Auto) PT INR Sodium Potassium Chloride Carbon Dioxide Anion Gap BUN Creatinine Est GFR ( Amer) Est GFR (Non-Af Amer) POC Glucose (mg/dL) Random Glucose Calcium Phosphorus Magnesium Total Bilirubin AST ALT Alkaline Phosphatase Total Protein Albumin Globulin Albumin/Globulin Ratio Stool Occult Blood Negative Ur L.pneumophila Ag Negative Mycoplasma pneumon IgM Negative 11/24/17 11/24/17 11/24/17 07:22 11:19 11:19 WBC 7.7 RBC 4.05 L Hgb 11.0 L Hct 32.5 L MCV 80.3 MCH 27.3 MCHC 33.9 RDW 16.0 H Plt Count 448 H MPV 7.2 Neut % (Auto) 59.5 Lymph % (Auto) 21.9 Hooker % (Auto) 10.2 H Eos % (Auto) 7.4 H Baso % (Auto) 1.0 Neut # (Auto) 4.6 Lymph # (Auto) 1.7 Hooker # (Auto) 0.8 Eos # (Auto) 0.6 Baso # (Auto) 0.1 PT INR Sodium 139 Potassium 3.8 Chloride 101 Carbon Dioxide 27 Anion Gap 14 BUN 8 L Creatinine 0.9 Est GFR ( Amer) > 60 Est GFR (Non-Af Amer) > 60 POC Glucose (mg/dL) 88 Random Glucose 80 Calcium 8.3 L Phosphorus 3.1 Magnesium 1.9 Total Bilirubin 0.3 AST 24 ALT 35 Alkaline Phosphatase 91 Total Protein 6.6 Albumin 3.4 L Globulin 3.3 Albumin/Globulin Ratio 1.0 Stool Occult Blood Ur L.pneumophila Ag Mycoplasma pneumon IgM 11/24/17 11:19 WBC RBC Hgb Hct MCV MCH MCHC RDW Plt Count MPV Neut % (Auto) Lymph % (Auto) Hooker % (Auto) Eos % (Auto) Baso % (Auto) Neut # (Auto) Lymph # (Auto) Hooker # (Auto) Eos # (Auto) Baso # (Auto) PT 13.8 H INR 1.2 Sodium Potassium Chloride Carbon Dioxide Anion Gap BUN Creatinine Est GFR ( Amer) Est GFR (Non-Af Amer) POC Glucose (mg/dL) Random Glucose Calcium Phosphorus Magnesium Total Bilirubin AST ALT Alkaline Phosphatase Total Protein Albumin Globulin Albumin/Globulin Ratio Stool Occult Blood Ur L.pneumophila Ag Mycoplasma pneumon IgM Assessment & Plan (1) Pleural effusion Status: Acute Comment: The effusion is likely acute (given that is was noted on the recent exam but got worse). Diagnostic and therapeutic thoracentesis by IR. Will follow up the fluid analysis, LDH, Protein, CBC, AFB smear, cultures and cytology. Antibiotics as per ID. F/u cultures and pathology sent out (2) Pulmonary hypertension Status: Acute Comment: Echo from 11/05 reviewed, normal LV/RV size and function, borderline Pulmonary HTN. Could be due to Obesity with underlying restrictive lung disease. Consider VQ scan to R/O CTPH, but i doubt in view of doo oxygenation and stable resp status. Unlikely related to diastolic dysfunction and/or valvular heart disease. PFTs can be done as putpatient to evaluate for possibility of underlying lung disease. (3) Left upper quadrant abdominal swelling Status: Acute Comment: debridement of left abdominal wall abscess (4) Pneumonia Status: Acute Comment: Legionella and mycoplasma negative. Antibiotics as per ID (5) Chronic venous stasis dermatitis Status: Acute (6) Cough Status: Acute (7) Morbid obesity Status: Acute (8) Pedal edema Status: Acute
--- NOTE | 2017-11-24 14:03 | PCM.SURG1 ---
Surgeon's Initial Post Op Note - Surgeon's Notes Surgeon: Jatinder Aranda MD Molecular Physicist: NONE Type of Anesthesia: Local Pre-Operative Diagnosis: Left pleural effusion Operative Findings: US showed a small left effusion Post-Operative Diagnosis: Left pleural effusion Operation Performed: US guided thoracentesis. Specimen/Specimens Removed: 60 cc of serosanguinous fluid removed Estimated Blood Loss: EBL {In ML}: 0 Blood Products Given: N/A Drains Used: No Drains Post-Op Condition: Fair Date of Surgery/Procedure: 11/24/17 Time of Surgery/Procedure: 14:00
[2017-11-24 14:54] LABS: BODY FLUID TYPE PLEURAL/THORACENTESI
[2017-11-24 16:29] LABS: BF GROSS APPEARANCE BLOODY (CLEAR)
[2017-11-24 16:33] LABS: BODY FLUID MONO/MACROPHAGE 10 % (0-0); BODY FLUID TOTAL COUNT 100 (0-0)
--- NOTE | 2017-11-24 19:17 | CP.PCM.PN ---
Subjective - Date & Time of Evaluation Date of Evaluation: 11/24/17 Time of Evaluation: 07:20 - Subjective Subjective: clinically same Objective - Vital Signs/Intake and Output Vital Signs (last 24 hours): Temp Pulse Resp BP Pulse Ox 98.3 F 89 20 130/82 96 11/24/17 15:15 11/24/17 15:15 11/24/17 15:15 11/24/17 15:15 11/24/17 15:15 Intake and Output: 11/24/17 11/25/17 18:59 06:59 Intake Total 1050 Balance 1050 - Medications Medications: Current Medications Albuterol (Ventolin Hfa 90 Mcg/Actuation (8 G)) 2 puff IH RQ6 PRN PRN Reason: SOB Last Admin: 11/18/17 08:19 Dose: 2 puff Aspirin (Ecotrin) 81 mg PO DAILY [facility] Last Admin: 11/24/17 09:40 Dose: 81 mg Enoxaparin Sodium (Lovenox) 40 mg SC DAILY [facility] Last Admin: 11/24/17 09:40 Dose: 40 mg Ferric Sodium Gluconate Complex (Ferrlecit) 125 mg IVPB DAILY [facility] Stop: 12/02/17 10:01 Last Admin: 11/24/17 14:39 Dose: Not Given Guaifenesin/Dextromethorphan (Robitussin Dm) 15 ml PO Q6H [facility] Last Admin: 11/24/17 18:43 Dose: 15 ml Vancomycin HCl 1,250 mg/ (Sodium Chloride) 250 mls @ 166.6 mls/hr IVPB Q12H [facility] Last Admin: 11/24/17 18:51 Dose: 166.6 mls/hr Azithromycin (Zithromax 500mg In Ns Addvantage) 500 mg in 250 mls @ 167 mls/hr IVPB Q24H [facility] PRN Reason: Protocol Last Admin: 11/23/17 22:34 Dose: 167 mls/hr Piperacillin Sod/Tazobactam Sod (Zosyn 3.375 Gm Iv Premix) 3.375 gm in 50 mls @ 100 mls/hr IVPB Q8 [facility] Last Admin: 11/24/17 14:39 Dose: Not Given Losartan Potassium (Cozaar) 50 mg PO DAILY [facility] Last Admin: 11/24/17 09:40 Dose: 50 mg Metformin HCl (Glucophage Xr) 500 mg PO HS [facility] Last Admin: 11/23/17 21:32 Dose: 500 mg Pantoprazole Sodium (Protonix Ec Tab) 40 mg PO DAILY [facility] Last Admin: 11/24/17 09:40 Dose: 40 mg Fluticasone/Salmeterol (Advair Diskus 250/50) 1 puff INH RQ12 [facility] Last Admin: 11/24/17 08:06 Dose: 1 puff Senna/Docusate Sodium (Senokot S 50 Mg-8.6 Mg) 1 tab PO BID [facility] Last Admin: 11/24/17 18:47 Dose: Not Given - Labs Labs: 11/24/17 11:19 11/24/17 11:19 PT 13.8 SECONDS (9.7-12.2) H 11/24/17 11:19 INR 1.2 11/24/17 11:19 Assessment and Plan (1) Abdominal pain Status: Acute (2) Left upper quadrant abdominal swelling Status: Acute (3) Bronchitis Status: Acute (4) Chronic venous stasis dermatitis Status: Acute (5) Cough Status: Acute (6) Influenza-like illness Status: Acute (7) Leg edema Status: Acute (8) Leg swelling Status: Acute (9) Morbid obesity Status: Acute (10) Pedal edema Status: Acute (11) Reactive airway disease Status: Acute
[2017-11-24] MEDS: Azithromycin 500mg/250ML NS 500 MG/250 ML BAG IVPB SCH (22:25)
--- NOTE | 2017-11-24 23:14 | CP.PCM.PN ---
Subjective - Date & Time of Evaluation Date of Evaluation: 11/24/17 Time of Evaluation: 23:14 - Subjective Subjective: EVENTS NOTED. VSS. C/O COUGH /LT.PLEURITIC CHEST PAIN. LT LATERAL ABDOMINAL WALL TENDERNESS ON PALPATION PATIENT SITTING UP IN THE CHAIR UPRIGHT. S/P IR THORACENTESIS LEFT SIDE. PATIENT REFUSED picc LINE REPORTED BY RN AT 6:15 pm. PATIENT TO GET PICC LINE BY IR IN AM FOR iv ANTIBIOTICS IF AGREEABLE. F/U PNEUMONIA WORKUP/AND DIAGNOSTIC AND THERAPEUTIC PLEURAL FLUID. SEEN BY PULMONARY-DR RODRIGUEZ. Objective - Vital Signs/Intake and Output Vital Signs (last 24 hours): Temp Pulse Resp BP Pulse Ox 98.3 F 89 20 130/82 96 11/24/17 15:15 11/24/17 15:15 11/24/17 15:15 11/24/17 15:15 11/24/17 15:15 Intake and Output: 11/24/17 11/25/17 18:59 06:59 Intake Total 1050 500 Balance 1050 500 - Medications Medications: Current Medications Albuterol (Ventolin Hfa 90 Mcg/Actuation (8 G)) 2 puff IH RQ6 PRN PRN Reason: SOB Last Admin: 11/18/17 08:19 Dose: 2 puff Aspirin (Ecotrin) 81 mg PO DAILY [facility] Last Admin: 11/24/17 09:40 Dose: 81 mg Enoxaparin Sodium (Lovenox) 40 mg SC DAILY [facility] Last Admin: 11/24/17 09:40 Dose: 40 mg Ferric Sodium Gluconate Complex (Ferrlecit) 125 mg IVPB DAILY [facility] Stop: 12/02/17 10:01 Last Admin: 11/24/17 14:39 Dose: Not Given Guaifenesin/Dextromethorphan (Robitussin Dm) 15 ml PO Q6H [facility] Last Admin: 11/24/17 18:43 Dose: 15 ml Vancomycin HCl 1,250 mg/ (Sodium Chloride) 250 mls @ 166.6 mls/hr IVPB Q12H [facility] Last Admin: 11/24/17 18:51 Dose: 166.6 mls/hr Azithromycin (Zithromax 500mg In Ns Addvantage) 500 mg in 250 mls @ 167 mls/hr IVPB Q24H [facility] PRN Reason: Protocol Last Admin: 11/24/17 22:25 Dose: 167 mls/hr Piperacillin Sod/Tazobactam Sod (Zosyn 3.375 Gm Iv Premix) 3.375 gm in 50 mls @ 100 mls/hr IVPB Q8 [facility] Last Admin: 11/24/17 21:24 Dose: 100 mls/hr Losartan Potassium (Cozaar) 50 mg PO DAILY [facility] Last Admin: 11/24/17 09:40 Dose: 50 mg Metformin HCl (Glucophage Xr) 500 mg PO HS [facility] Last Admin: 11/24/17 22:38 Dose: 500 mg Pantoprazole Sodium (Protonix Ec Tab) 40 mg PO DAILY [facility] Last Admin: 11/24/17 09:40 Dose: 40 mg Fluticasone/Salmeterol (Advair Diskus 250/50) 1 puff INH RQ12 [facility] Last Admin: 11/24/17 19:55 Dose: 1 puff Senna/Docusate Sodium (Senokot S 50 Mg-8.6 Mg) 1 tab PO BID [facility] Last Admin: 11/24/17 18:47 Dose: Not Given - Labs Labs: 11/24/17 11:19 11/24/17 11:19 PT 13.8 SECONDS (9.7-12.2) H 11/24/17 11:19 INR 1.2 11/24/17 11:19 - Constitutional Appears: No Acute Distress - Head Exam Head Exam: NORMAL INSPECTION - Eye Exam Eye Exam: EOMI, PERRL - ENT Exam ENT Exam: Normal Oropharynx - Neck Exam Neck Exam: Normal Inspection - Respiratory Exam Respiratory Exam: Decreased Breath Sounds (LT SIDE.) - GI/Abdominal Exam GI & Abdominal Exam: Soft, Tenderness (LT LATERAL WALLON PALPATION. MULTIPLE FOLDS.), Normal Bowel Sounds - Extremities Exam Extremities Exam: Pedal Edema. absent: Calf Tenderness, Tenderness - Neurological Exam Neurological Exam: Awake, CN II-XII Intact, Oriented x3 - Psychiatric Exam Psychiatric exam: Normal Mood - Skin Skin Exam: Normal Color, Warm Assessment and Plan (1) Left upper quadrant abdominal swelling Status: Acute (2) Pneumonia Assessment & Plan: W/U FOR ANGE PNEUMONIA/LT PLEURAL EFFUSION CONTINUE IV ZOSYN 3.375 EVERY 8 HOURLY 11/15/17 CONTINUE IV VANCOMYCIN 1250 MG iv EVERY 12 HOURLY FOR mrsa STREP COVERAGE . CONTINUE IV ZITHROMAX 500 MG iv PIGGYBACK ONCE A DAY DAILY.11/23/17. F/U PLEURAL FLUID. F/U TB W/U. SPUTUM FOR AFB X 3 IN AM DAILY X 3 DAYS. F/U QUANTIFERON GOLD TB -TEST. PATIENT TO BE TRANSFERRED TO [facility]. DISCUSSED W RN MS MARTHA F/U RECOMMENDATIONS PER PULMONARY. Status: Acute (3) Bronchitis Status: Acute (4) Morbid obesity Status: Acute
[2017-11-25] MEDS: guaiFENesin DM 100 mg-10 mg/5 ml UD PO SCH ×5 (00:07→23:54)
[2017-11-25] MEDS: Piperacill/Tazo 3.375gm in Dex 3.375 GM/50 ML BAG IVPB SCH ×3 (05:08→22:59)
[2017-11-25] MEDS: Fluticasone-Salmeterol 250-50mcg Diskus INH SCH ×2 (08:36→20:48)
[2017-11-25 08:39] LABS: ALB/GLOB RATIO 0.9 (1.0-2.1); ALBUMIN 3.5 g/dL (3.5-5.0); ALT/SGPT 23 U/L (21-72); AST/SGOT 50 U/L (17-59); BLOOD UREA NITROGEN 8 mg/dL (9-20); CALCIUM 8.5 mg/dl (8.6-10.4); GFR AFRICAN-AMERICAN > 60; GFR NON-AFRICAN AMERICAN > 60
[2017-11-25] MEDS: Ferric Sodium Gluconat Complex 62.5 mg/5 ml Vial IVPB SCH (09:16)
[2017-11-25] MEDS: Enoxaparin 40 mg Syringe SC SCH (09:17)
[2017-11-25] MEDS: Pantoprazole 40 mg EC Tab PO SCH (09:17)
[2017-11-25] MEDS: Docusate-Senna 50 mg-8.6 mg Tab PO SCH ×2 (09:18→17:40)
[2017-11-25 11:29] LABS: BASO # 0.1 K/uL (0.0-0.2); EOS # 0.5 K/uL (0.0-0.7); EOS % 6.4 % (0.0-4.0); HEMOGLOBIN 11.6 g/dL (12.0-18.0); LYMPH # 1.9 K/uL (1.0-4.3); LYMPH % 22.7 % (20.0-40.0); MEAN CELL VOLUME 80.6 fL (80.0-94.0); MEAN CORPUSCULAR HEMOGLOBIN 27.4 pg (27.0-31.0); MEAN PLATELET VOLUME 7.3 fL (7.2-11.7); MONO % 11.7 % (0.0-10.0); NEUT # 4.8 K/uL (1.8-7.0); NEUT % 58.2 % (50.0-75.0); NRBC % 0.1 % (0.0-2.0); RBC 4.22 Mil/uL (4.40-5.90); RED CELL DISTRIBUTION WIDTH 16.2 % (11.5-14.5); WHITE BLOOD COUNT 8.2 K/uL (4.8-10.8)
--- NOTE | 2017-11-25 17:36 | CP.PCM.PN ---
Subjective - Date & Time of Evaluation Date of Evaluation: 11/25/17 Time of Evaluation: 07:10 - Subjective Subjective: clinically same Objective - Vital Signs/Intake and Output Vital Signs (last 24 hours): Temp Pulse Resp BP Pulse Ox 98.4 F 91 H 20 151/96 H 96 11/25/17 08:25 11/25/17 08:25 11/25/17 08:25 11/25/17 08:25 11/25/17 08:25 Intake and Output: 11/25/17 11/25/17 06:59 18:59 Intake Total 500 1580 Balance 500 1580 - Medications Medications: Current Medications Albuterol (Ventolin Hfa 90 Mcg/Actuation (8 G)) 2 puff IH RQ6 PRN PRN Reason: SOB Last Admin: 11/18/17 08:19 Dose: 2 puff Aspirin (Ecotrin) 81 mg PO DAILY [facility] Last Admin: 11/25/17 09:17 Dose: 81 mg Enoxaparin Sodium (Lovenox) 40 mg SC DAILY [facility] Last Admin: 11/25/17 09:17 Dose: 40 mg Ferric Sodium Gluconate Complex (Ferrlecit) 125 mg IVPB DAILY [facility] Stop: 12/02/17 10:01 Last Admin: 11/25/17 09:16 Dose: 125 mg Guaifenesin/Dextromethorphan (Robitussin Dm) 15 ml PO Q6H [facility] Last Admin: 11/25/17 11:14 Dose: 15 ml Vancomycin HCl 1,250 mg/ (Sodium Chloride) 250 mls @ 166.6 mls/hr IVPB Q12H [facility] Last Admin: 11/25/17 14:12 Dose: 166.6 mls/hr Azithromycin (Zithromax 500mg In Ns Addvantage) 500 mg in 250 mls @ 167 mls/hr IVPB Q24H [facility] PRN Reason: Protocol Last Admin: 11/24/17 22:25 Dose: 167 mls/hr Piperacillin Sod/Tazobactam Sod (Zosyn 3.375 Gm Iv Premix) 3.375 gm in 50 mls @ 100 mls/hr IVPB Q8 [facility] Last Admin: 11/25/17 14:11 Dose: 100 mls/hr Losartan Potassium (Cozaar) 50 mg PO DAILY [facility] Last Admin: 03/10/18 09:17 Dose: 50 mg Metformin HCl (Glucophage Xr) 500 mg PO HS [facility] Last Admin: 11/24/17 22:38 Dose: 500 mg Pantoprazole Sodium (Protonix Ec Tab) 40 mg PO DAILY [facility] Last Admin: 11/25/17 09:17 Dose: 40 mg Fluticasone/Salmeterol (Advair Diskus 250/50) 1 puff INH RQ12 [facility] Last Admin: 11/25/17 08:36 Dose: 1 puff Senna/Docusate Sodium (Senokot S 50 Mg-8.6 Mg) 1 tab PO BID [facility] Last Admin: 11/25/17 09:18 Dose: 1 tab - Labs Labs: 11/25/17 11:20 11/25/17 08:16 PT 13.8 SECONDS (9.7-12.2) H 11/24/17 11:19 INR 1.2 11/24/17 11:19 - Constitutional Appears: Well - Head Exam Head Exam: ATRAUMATIC, NORMAL INSPECTION, NORMOCEPHALIC - Eye Exam Eye Exam: EOMI, Normal appearance, PERRL Pupil Exam: NORMAL ACCOMODATION, PERRL - ENT Exam ENT Exam: Mucous Membranes Moist, Normal Exam - Neck Exam Neck Exam: Full ROM, Normal Inspection. absent: Lymphadenopathy - Respiratory Exam Respiratory Exam: Decreased Breath Sounds - Cardiovascular Exam Cardiovascular Exam: REGULAR RHYTHM, +S1, +S2 - GI/Abdominal Exam GI & Abdominal Exam: Soft, Diminished Bowel Sounds - Rectal Exam Rectal Exam: Deferred Assessment and Plan (1) Abdominal pain Status: Acute (2) Left upper quadrant abdominal swelling Status: Acute (3) Bronchitis Status: Acute (4) Chronic venous stasis dermatitis Status: Acute (5) Cough Status: Acute (6) Influenza-like illness Status: Acute (7) Leg edema Status: Acute (8) Leg swelling Status: Acute (9) Morbid obesity Status: Acute (10) Pedal edema Status: Acute (11) Reactive airway disease Status: Acute - Assessment and Plan (Free Text) Plan: Continue same status post ID consult Continue Lovenox and Protonix Continue azithromycin Continue vancomycin Continue bronchodilators Continue same Hemoglobin hematocrit 11.6 and 34 CBC CMP acceptable
--- NOTE | 2017-11-25 19:58 | CP.PCM.PN ---
Subjective - Date & Time of Evaluation Date of Evaluation: 11/25/17 Time of Evaluation: 19:58 - Subjective Subjective: AFEBRILE. CLINICALLY SAME STATES CANNOT LIE FLAT. PT ALWAYS UPRIGHT IN A CHAIR S/P THORACSENTESIS . PT HAS HGIC PLEURAL EFFUSSION VS TRAUMATIC . F/U PLEURAL FLUID CONTINUE IV ABX Objective - Vital Signs/Intake and Output Vital Signs (last 24 hours): Temp Pulse Resp BP Pulse Ox 97.7 F 91 H 20 136/90 95 11/25/17 18:00 11/25/17 18:00 11/25/17 18:00 11/25/17 18:00 11/25/17 18:00 Intake and Output: 11/25/17 11/26/17 18:59 07:59 Intake Total 1580 Balance 1580 - Medications Medications: Current Medications Albuterol (Ventolin Hfa 90 Mcg/Actuation (8 G)) 2 puff IH RQ6 PRN PRN Reason: SOB Last Admin: 11/18/17 08:19 Dose: 2 puff Aspirin (Ecotrin) 81 mg PO DAILY [facility] Last Admin: 11/25/17 09:17 Dose: 81 mg Enoxaparin Sodium (Lovenox) 40 mg SC DAILY [facility] Last Admin: 11/25/17 09:17 Dose: 40 mg Ferric Sodium Gluconate Complex (Ferrlecit) 125 mg IVPB DAILY [facility] Stop: 12/02/17 10:01 Last Admin: 11/25/17 09:16 Dose: 125 mg Guaifenesin/Dextromethorphan (Robitussin Dm) 15 ml PO Q6H [facility] Last Admin: 11/25/17 17:41 Dose: 15 ml Vancomycin HCl 1,250 mg/ (Sodium Chloride) 250 mls @ 166.6 mls/hr IVPB Q12H [facility] Last Admin: 11/25/17 14:12 Dose: 166.6 mls/hr Azithromycin (Zithromax 500mg In Ns Addvantage) 500 mg in 250 mls @ 167 mls/hr IVPB Q24H [facility] PRN Reason: Protocol Last Admin: 11/24/17 22:25 Dose: 167 mls/hr Piperacillin Sod/Tazobactam Sod (Zosyn 3.375 Gm Iv Premix) 3.375 gm in 50 mls @ 100 mls/hr IVPB Q8 [facility] Last Admin: 11/25/17 14:11 Dose: 100 mls/hr Losartan Potassium (Cozaar) 50 mg PO DAILY [facility] Last Admin: 11/25/17 09:17 Dose: 50 mg Metformin HCl (Glucophage Xr) 500 mg PO HS [facility] Last Admin: 11/24/17 22:38 Dose: 500 mg Pantoprazole Sodium (Protonix Ec Tab) 40 mg PO DAILY [facility] Last Admin: 11/25/17 09:17 Dose: 40 mg Fluticasone/Salmeterol (Advair Diskus 250/50) 1 puff INH RQ12 [facility] Last Admin: 11/25/17 08:36 Dose: 1 puff Senna/Docusate Sodium (Senokot S 50 Mg-8.6 Mg) 1 tab PO BID [facility] Last Admin: 11/25/17 17:40 Dose: 1 tab - Labs Labs: 11/25/17 11:20 11/25/17 08:16 PT 13.8 SECONDS (9.7-12.2) H 11/24/17 11:19 INR 1.2 11/24/17 11:19 - Constitutional Appears: No Acute Distress - Head Exam Head Exam: ATRAUMATIC, NORMAL INSPECTION - Eye Exam Eye Exam: EOMI, PERRL - ENT Exam ENT Exam: Normal Oropharynx - Neck Exam Neck Exam: Normal Inspection - Respiratory Exam Respiratory Exam: Decreased Breath Sounds - Cardiovascular Exam Cardiovascular Exam: REGULAR RHYTHM, +S1 - GI/Abdominal Exam GI & Abdominal Exam: Tenderness (LEFT LATERAL WALL ABDOMEN. mORBIDLY OBESE WITH MULTIPLE FOLDS AND GYNECOMASTIA.), Normal Bowel Sounds. absent: Rebound - Extremities Exam Extremities Exam: Pedal Edema. absent: Calf Tenderness - Neurological Exam Neurological Exam: Alert, Awake, CN II-XII Intact, Normal Gait, Oriented x3, Reflexes Normal - Psychiatric Exam Psychiatric exam: Normal Mood - Skin Skin Exam: Normal Color, Warm Assessment and Plan (1) Left upper quadrant abdominal swelling Status: Acute (2) Pneumonia Assessment & Plan: W/U FOR ANGE PNEUMONIA/LT PLEURAL EFFUSION CONTINUE IV ZOSYN 3.375 EVERY 8 HOURLY 11/15/17 CONTINUE IV VANCOMYCIN 1250 MG iv EVERY 12 HOURLY FOR mrsa STREP COVERAGE . CONTINUE IV ZITHROMAX 500 MG iv PIGGYBACK ONCE A DAY DAILY.11/23/17. F/U PLEURAL FLUID. F/U TB W/U. SPUTUM FOR AFB X 3 IN AM DAILY X 3 DAYS. F/U QUANTIFERON GOLD TB -TEST. PATIENT TO BE TRANSFERRED TO [facility]. DISCUSSED W RN MS MARTHA F/U RECOMMENDATIONS PER PULMONARY. Status: Acute (3) Bronchitis Status: Acute (4) Morbid obesity Status: Acute
[2017-11-25] MEDS: Azithromycin 500mg/250ML NS 500 MG/250 ML BAG IVPB SCH (23:49)
[2017-11-26] MEDS: Piperacill/Tazo 3.375gm in Dex 3.375 GM/50 ML BAG IVPB SCH ×2 (05:33→14:15)
[2017-11-26] MEDS: guaiFENesin DM 100 mg-10 mg/5 ml UD PO SCH ×4 (05:33→23:38)
[2017-11-26 08:00] LABS: BASO # 0.1 K/uL (0.0-0.2); BASO % 0.9 % (0.0-2.0); EOS # 0.5 K/uL (0.0-0.7); EOS % 5.2 % (0.0-4.0); HEMOGLOBIN 11.7 g/dL (12.0-18.0); LYMPH # 1.8 K/uL (1.0-4.3); LYMPH % 19.3 % (20.0-40.0); MEAN CELL VOLUME 80.8 fL (80.0-94.0); MEAN CORPUSCULAR HEMOGLOBIN 27.5 pg (27.0-31.0); MEAN CORPUSCULAR HGB CONC 34.1 g/dL (33.0-37.0); MEAN PLATELET VOLUME 7.1 fL (7.2-11.7); MONO % 10.1 % (0.0-10.0); NEUT # 6.2 K/uL (1.8-7.0); NEUT % 64.5 % (50.0-75.0); NRBC % 0.1 % (0.0-2.0); RBC 4.25 Mil/uL (4.40-5.90); RED CELL DISTRIBUTION WIDTH 16.3 % (11.5-14.5); WHITE BLOOD COUNT 9.6 K/uL (4.8-10.8)
[2017-11-26] MEDS: Fluticasone-Salmeterol 250-50mcg Diskus INH SCH ×2 (08:01→19:59)
[2017-11-26 08:24] LABS: ALB/GLOB RATIO 1.1 (1.0-2.1); ALBUMIN 3.5 g/dL (3.5-5.0); ALT/SGPT 30 U/L (21-72); AST/SGOT 30 U/L (17-59); BLOOD UREA NITROGEN 9 mg/dL (9-20); CALCIUM 8.4 mg/dl (8.6-10.4); GFR AFRICAN-AMERICAN > 60; GFR NON-AFRICAN AMERICAN > 60
[2017-11-26] MEDS: Enoxaparin 40 mg Syringe SC SCH (09:34)
[2017-11-26] MEDS: Pantoprazole 40 mg EC Tab PO SCH (09:35)
[2017-11-26] MEDS: Ferric Sodium Gluconat Complex 62.5 mg/5 ml Vial IVPB SCH (09:35)
[2017-11-26] MEDS: Docusate-Senna 50 mg-8.6 mg Tab PO SCH ×3 (09:35→18:15)
--- NOTE | 2017-11-26 15:59 | CP.PCM.PN ---
Subjective - Date & Time of Evaluation Date of Evaluation: 11/26/17 Time of Evaluation: 07:20 - Subjective Subjective: clinically same Objective - Vital Signs/Intake and Output Vital Signs (last 24 hours): Temp Pulse Resp BP Pulse Ox 98.5 F 89 20 136/82 95 11/26/17 08:00 11/26/17 08:00 11/26/17 08:00 11/26/17 08:00 11/26/17 08:00 Intake and Output: 11/26/17 11/26/17 06:59 18:59 Intake Total 900 Balance 900 - Medications Medications: Current Medications Albuterol (Ventolin Hfa 90 Mcg/Actuation (8 G)) 2 puff IH RQ6 PRN PRN Reason: SOB Last Admin: 11/18/17 08:19 Dose: 2 puff Aspirin (Ecotrin) 81 mg PO DAILY [facility] Last Admin: 11/26/17 09:35 Dose: 81 mg Enoxaparin Sodium (Lovenox) 40 mg SC DAILY [facility] Last Admin: 11/26/17 09:34 Dose: 40 mg Ferric Sodium Gluconate Complex (Ferrlecit) 125 mg IVPB DAILY [facility] Stop: 12/02/17 10:01 Last Admin: 11/26/17 09:35 Dose: 125 mg Guaifenesin/Dextromethorphan (Robitussin Dm) 15 ml PO Q6H [facility] Last Admin: 11/26/17 11:12 Dose: 15 ml Vancomycin HCl 1,250 mg/ (Sodium Chloride) 250 mls @ 166.6 mls/hr IVPB Q12H [facility] Last Admin: 11/26/17 14:15 Dose: 166.6 mls/hr Azithromycin (Zithromax 500mg In Ns Addvantage) 500 mg in 250 mls @ 167 mls/hr IVPB Q24H [facility] PRN Reason: Protocol Last Admin: 11/25/17 23:49 Dose: 167 mls/hr Losartan Potassium (Cozaar) 50 mg PO DAILY [facility] Last Admin: 11/26/17 09:35 Dose: 50 mg Metformin HCl (Glucophage Xr) 500 mg PO HS [facility] Last Admin: 11/25/17 22:59 Dose: 500 mg Pantoprazole Sodium (Protonix Ec Tab) 40 mg PO DAILY [facility] Last Admin: 11/26/17 09:35 Dose: 40 mg Fluticasone/Salmeterol (Advair Diskus 250/50) 1 puff INH RQ12 [facility] Last Admin: 11/26/17 08:01 Dose: 1 puff Senna/Docusate Sodium (Senokot S 50 Mg-8.6 Mg) 1 tab PO BID [facility] Last Admin: 11/26/17 13:41 Dose: Not Given - Labs Labs: 11/26/17 07:52 11/26/17 07:52 PT 13.8 SECONDS (9.7-12.2) H 11/24/17 11:19 INR 1.2 11/24/17 11:19 - Constitutional Appears: Well - Head Exam Head Exam: ATRAUMATIC, NORMAL INSPECTION, NORMOCEPHALIC - Eye Exam Eye Exam: EOMI, Normal appearance, PERRL Pupil Exam: NORMAL ACCOMODATION, PERRL - ENT Exam ENT Exam: Mucous Membranes Moist, Normal Exam - Neck Exam Neck Exam: Full ROM, Normal Inspection. absent: Lymphadenopathy - Respiratory Exam Respiratory Exam: Decreased Breath Sounds - Cardiovascular Exam Cardiovascular Exam: REGULAR RHYTHM, +S1, +S2 - GI/Abdominal Exam GI & Abdominal Exam: Soft, Diminished Bowel Sounds - Rectal Exam Rectal Exam: Deferred
--- NOTE | 2017-11-26 19:10 | CP.PCM.PN ---
<Francesco Stover M - Last Filed: 11/26/17 19:09> Subjective - Date & Time of Evaluation Date of Evaluation: 11/26/17 Time of Evaluation: 19:09 Objective - Vital Signs/Intake and Output Vital Signs (last 24 hours): Temp Pulse Resp BP Pulse Ox 98.3 F 100 H 20 138/79 95 11/26/17 16:00 11/26/17 16:00 11/26/17 16:00 11/26/17 16:00 11/26/17 16:00 Intake and Output: 11/26/17 11/27/17 18:59 06:59 Intake Total 900 Balance 900 - Medications Medications: Current Medications Albuterol (Ventolin Hfa 90 Mcg/Actuation (8 G)) 2 puff IH RQ6 PRN PRN Reason: SOB Last Admin: 11/18/17 08:19 Dose: 2 puff Aspirin (Ecotrin) 81 mg PO DAILY [facility] Last Admin: 11/26/17 09:35 Dose: 81 mg Enoxaparin Sodium (Lovenox) 40 mg SC DAILY [facility] Last Admin: 11/26/17 09:34 Dose: 40 mg Ferric Sodium Gluconate Complex (Ferrlecit) 125 mg IVPB DAILY [facility] Stop: 12/02/17 10:01 Last Admin: 11/26/17 09:35 Dose: 125 mg Guaifenesin/Dextromethorphan (Robitussin Dm) 15 ml PO Q6H [facility] Last Admin: 11/26/17 18:14 Dose: 15 ml Vancomycin HCl 1,250 mg/ (Sodium Chloride) 250 mls @ 166.6 mls/hr IVPB Q12H [facility] Last Admin: 11/26/17 14:15 Dose: 166.6 mls/hr Azithromycin (Zithromax 500mg In Ns Addvantage) 500 mg in 250 mls @ 167 mls/hr IVPB Q24H [facility] PRN Reason: Protocol Last Admin: 11/25/17 23:49 Dose: 167 mls/hr Losartan Potassium (Cozaar) 50 mg PO DAILY [facility] Last Admin: 11/26/17 09:35 Dose: 50 mg Metformin HCl (Glucophage Xr) 500 mg PO HS [facility] Last Admin: 11/25/17 22:59 Dose: 500 mg Pantoprazole Sodium (Protonix Ec Tab) 40 mg PO DAILY [facility] Last Admin: 11/26/17 09:35 Dose: 40 mg Fluticasone/Salmeterol (Advair Diskus 250/50) 1 puff INH RQ12 [facility] Last Admin: 11/26/17 08:01 Dose: 1 puff Senna/Docusate Sodium (Senokot S 50 Mg-8.6 Mg) 1 tab PO BID [facility] Last Admin: 11/26/17 18:15 Dose: Not Given - Labs Labs: 11/26/17 07:52 11/26/17 07:52 PT 13.8 SECONDS (9.7-12.2) H 11/24/17 11:19 INR 1.2 11/24/17 11:19 Assessment and Plan (1) Pleural effusion Status: Acute (2) Pulmonary hypertension Status: Acute (3) Left upper quadrant abdominal swelling Status: Acute (4) Pneumonia Status: Acute (5) Chronic venous stasis dermatitis Status: Acute (6) Cough Status: Acute (7) Morbid obesity Status: Acute (8) Pedal edema Status: Acute <Ky Todd S - Last Filed: 11/27/17 19:31> Subjective - Subjective Subjective: sob better Objective - Vital Signs/Intake and Output Vital Signs (last 24 hours): Temp Pulse Resp BP Pulse Ox 98.3 F 79 20 119/73 96 11/27/17 15:15 11/27/17 15:15 11/27/17 15:15 11/27/17 15:15 11/27/17 15:15 Intake and Output: 11/27/17 11/28/17 18:59 06:59 Intake Total 780 Balance 780 - Medications Medications: Current Medications Albuterol (Ventolin Hfa 90 Mcg/Actuation (8 G)) 2 puff IH RQ6 PRN PRN Reason: SOB Last Admin: 11/18/17 08:19 Dose: 2 puff Albuterol/Ipratropium (Duoneb 3 Mg/0.5 Mg (3 Ml) Ud) 3 ml INH RQ6 [facility] Aspirin (Ecotrin) 81 mg PO DAILY [facility] Last Admin: 11/27/17 10:11 Dose: 81 mg Enoxaparin Sodium (Lovenox) 40 mg SC DAILY [facility] Last Admin: 11/27/17 10:10 Dose: 40 mg Furosemide (Lasix) 40 mg IVP DAILY [facility] Last Admin: 11/27/17 10:10 Dose: 40 mg Guaifenesin/Dextromethorphan (Robitussin Dm) 15 ml PO Q6H [facility] Last Admin: 11/27/17 17:38 Dose: 15 ml Vancomycin HCl 1,250 mg/ (Sodium Chloride) 250 mls @ 166.6 mls/hr IVPB Q12H [facility] Last Admin: 11/27/17 14:28 Dose: 166.6 mls/hr Azithromycin 500 mg/ Sodium (Chloride) 250 mls @ 167 mls/hr IVPB Q24H [facility] PRN Reason: Protocol Last Admin: 11/26/17 22:30 Dose: 167 mls/hr Piperacillin Sod/Tazobactam Sod (Zosyn 3.375 Gm Iv Premix) 3.375 gm in 50 mls @ 100 mls/hr IVPB Q8H [facility] PRN Reason: Protocol Last Admin: 11/27/17 17:35 Dose: 100 mls/hr Losartan Potassium (Cozaar) 50 mg PO DAILY [facility] Last Admin: 11/27/17 10:11 Dose: 50 mg Metformin HCl (Glucophage Xr) 500 mg PO HS [facility] Last Admin: 11/26/17 22:11 Dose: 500 mg Metoprolol Tartrate (Lopressor) 25 mg PO BID [facility] Last Admin: 11/27/17 10:11 Dose: 25 mg Pantoprazole Sodium (Protonix Ec Tab) 40 mg PO DAILY [facility] Last Admin: 11/27/17 10:11 Dose: 40 mg Fluticasone/Salmeterol (Advair Diskus 250/50) 1 puff INH RQ12 [facility] Last Admin: 11/27/17 08:22 Dose: 1 puff Senna/Docusate Sodium (Senokot S 50 Mg-8.6 Mg) 1 tab PO BID [facility] Last Admin: 11/27/17 17:36 Dose: 1 tab - Labs Labs: 11/27/17 06:35 11/27/17 06:35 PT 13.8 SECONDS (9.7-12.2) H 11/24/17 11:19 INR 1.2 11/24/17 11:19 Assessment and Plan - Assessment and Plan (Free Text) Plan: Continue vancomycin Continue Zithromax Follow-up with ID Follow-up with the pulmonary Discharge planning Pleural fluid management as per pulmonary
[2017-11-26] MEDS: Azithromycin 500 MG in Sodium Chloride 0.9% 250 ML IVPB SCH (22:30)
[2017-11-27] MEDS: Piperacill/Tazo 3.375gm in Dex 3.375 GM/50 ML BAG IVPB SCH ×4 (02:00→17:35)
[2017-11-27] MEDS: guaiFENesin DM 100 mg-10 mg/5 ml UD PO SCH ×3 (05:52→17:38)
[2017-11-27 07:00] LABS: BASO # 0.1 K/uL (0.0-0.2); BASO % 0.5 % (0.0-2.0); EOS # 0.1 K/uL (0.0-0.7); EOS % 0.8 % (0.0-4.0); LYMPH # 1.6 K/uL (1.0-4.3); LYMPH % 12.4 % (20.0-40.0); MEAN CELL VOLUME 81.3 fL (80.0-94.0); MEAN CORPUSCULAR HEMOGLOBIN 26.9 pg (27.0-31.0); MEAN CORPUSCULAR HGB CONC 33.1 g/dL (33.0-37.0); MEAN PLATELET VOLUME 7.5 fL (7.2-11.7); MONO % 8.1 % (0.0-10.0); NEUT # 10.1 K/uL (1.8-7.0); NEUT % 78.2 % (50.0-75.0); NRBC % 0.1 % (0.0-2.0); RBC 3.57 Mil/uL (4.40-5.90); WHITE BLOOD COUNT 12.9 K/uL (4.8-10.8)
[2017-11-27 07:03] LABS: HEMOGLOBIN 9.6 g/dL (12.0-18.0)
[2017-11-27 07:33] LABS: ALT/SGPT 29 U/L (21-72); AST/SGOT 25 U/L (17-59); BLOOD UREA NITROGEN 12 mg/dL (9-20); CALCIUM 7.8 mg/dl (8.6-10.4); GFR AFRICAN-AMERICAN > 60; GFR NON-AFRICAN AMERICAN > 60
[2017-11-27] MEDS: Fluticasone-Salmeterol 250-50mcg Diskus INH SCH ×2 (08:22→20:21)
[2017-11-27] MEDS: Enoxaparin 40 mg Syringe SC SCH (10:10)
[2017-11-27] MEDS: Pantoprazole 40 mg EC Tab PO SCH (10:11)
[2017-11-27] MEDS: Docusate-Senna 50 mg-8.6 mg Tab PO SCH ×2 (10:12→17:36)
--- NOTE | 2017-11-27 13:11 | CP.PCM.PN ---
Subjective - Date & Time of Evaluation Date of Evaluation: 11/27/17 Time of Evaluation: 07:30 - Subjective Subjective: clinically same Objective - Vital Signs/Intake and Output Vital Signs (last 24 hours): Temp Pulse Resp BP Pulse Ox 98.4 F 105 H 20 126/77 98 11/27/17 07:47 11/27/17 07:47 11/27/17 07:47 11/27/17 10:11 11/27/17 07:47 Intake and Output: 11/27/17 11/27/17 06:59 18:59 Intake Total 1000 Balance 1000 - Medications Medications: Current Medications Albuterol (Ventolin Hfa 90 Mcg/Actuation (8 G)) 2 puff IH RQ6 PRN PRN Reason: SOB Last Admin: 11/18/17 08:19 Dose: 2 puff Albuterol/Ipratropium (Duoneb 3 Mg/0.5 Mg (3 Ml) Ud) 3 ml INH RQ6 [facility] Aspirin (Ecotrin) 81 mg PO DAILY [facility] Last Admin: 11/27/17 10:11 Dose: 81 mg Enoxaparin Sodium (Lovenox) 40 mg SC DAILY [facility] Last Admin: 11/27/17 10:10 Dose: 40 mg Furosemide (Lasix) 40 mg IVP DAILY [facility] Last Admin: 11/27/17 10:10 Dose: 40 mg Guaifenesin/Dextromethorphan (Robitussin Dm) 15 ml PO Q6H [facility] Last Admin: 11/27/17 11:14 Dose: 15 ml Vancomycin HCl 1,250 mg/ (Sodium Chloride) 250 mls @ 166.6 mls/hr IVPB Q12H [facility] Last Admin: 11/27/17 03:00 Dose: 166.6 mls/hr Azithromycin 500 mg/ Sodium (Chloride) 250 mls @ 167 mls/hr IVPB Q24H [facility] PRN Reason: Protocol Last Admin: 11/26/17 22:30 Dose: 167 mls/hr Piperacillin Sod/Tazobactam Sod (Zosyn 3.375 Gm Iv Premix) 3.375 gm in 50 mls @ 100 mls/hr IVPB Q8H [facility] PRN Reason: Protocol Last Admin: 11/27/17 11:07 Dose: 100 mls/hr Losartan Potassium (Cozaar) 50 mg PO DAILY [facility] Last Admin: 11/27/17 10:11 Dose: 50 mg Metformin HCl (Glucophage Xr) 500 mg PO HS [facility] Last Admin: 11/26/17 22:11 Dose: 500 mg Metoprolol Tartrate (Lopressor) 25 mg PO BID [facility] Last Admin: 11/27/17 10:11 Dose: 25 mg Pantoprazole Sodium (Protonix Ec Tab) 40 mg PO DAILY [facility] Last Admin: 11/27/17 10:11 Dose: 40 mg Fluticasone/Salmeterol (Advair Diskus 250/50) 1 puff INH RQ12 [facility] Last Admin: 11/27/17 08:22 Dose: 1 puff Senna/Docusate Sodium (Senokot S 50 Mg-8.6 Mg) 1 tab PO BID [facility] Last Admin: 11/27/17 10:12 Dose: 1 tab - Labs Labs: 11/27/17 06:35 11/27/17 06:35 PT 13.8 SECONDS (9.7-12.2) H 11/24/17 11:19 INR 1.2 11/24/17 11:19 - Constitutional Appears: Well - Head Exam Head Exam: ATRAUMATIC, NORMAL INSPECTION, NORMOCEPHALIC - Eye Exam Eye Exam: EOMI, Normal appearance, PERRL Pupil Exam: NORMAL ACCOMODATION, PERRL - ENT Exam ENT Exam: Mucous Membranes Moist, Normal Exam - Neck Exam Neck Exam: Full ROM, Normal Inspection. absent: Lymphadenopathy - Respiratory Exam Respiratory Exam: Decreased Breath Sounds - Cardiovascular Exam Cardiovascular Exam: REGULAR RHYTHM, +S1, +S2 - GI/Abdominal Exam GI & Abdominal Exam: Soft, Diminished Bowel Sounds - Rectal Exam Rectal Exam: Deferred
[2017-11-27 17:15] LABS: TB ANTIGEN MINUS NIL 0.02 IU/mL
[2017-11-27] MEDS: Albuterol-Ipratrop 3 mg / 0.5 (3 ml) UD INH SCH (20:21)
--- NOTE | 2017-11-27 22:15 | CP.PCM.PN ---
Subjective - Date & Time of Evaluation Date of Evaluation: 11/27/17 Time of Evaluation: 22:15 - Subjective Subjective: AFEBRILE. CLINICALLY SAME oob on chair. labs reviewed. PLEURAL FLUID -NO GROWTH. QFT -TB TEST -VE PLAN; CXR TO SEE FOR EFFUSION. CONTINUE IV ABX. CASE DISCUSSED WITH VENEER SPLICER MS BYRD. Objective - Vital Signs/Intake and Output Vital Signs (last 24 hours): Temp Pulse Resp BP Pulse Ox 98.3 F 79 20 120/73 96 11/27/17 15:15 11/27/17 15:15 11/27/17 15:15 11/27/17 21:18 11/27/17 15:15 Intake and Output: 11/27/17 11/28/17 18:59 06:59 Intake Total 780 Balance 780 - Medications Medications: Current Medications Albuterol (Ventolin Hfa 90 Mcg/Actuation (8 G)) 2 puff IH RQ6 PRN PRN Reason: SOB Last Admin: 11/18/17 08:19 Dose: 2 puff Albuterol/Ipratropium (Duoneb 3 Mg/0.5 Mg (3 Ml) Ud) 3 ml INH RQ6 [facility] Last Admin: 11/27/17 20:21 Dose: 3 ml Aspirin (Ecotrin) 81 mg PO DAILY [facility] Last Admin: 11/27/17 10:11 Dose: 81 mg Enoxaparin Sodium (Lovenox) 40 mg SC DAILY [facility] Last Admin: 11/27/17 10:10 Dose: 40 mg Furosemide (Lasix) 40 mg IVP DAILY [facility] Last Admin: 11/27/17 10:10 Dose: 40 mg Guaifenesin/Dextromethorphan (Robitussin Dm) 15 ml PO Q6H [facility] Last Admin: 11/27/17 17:38 Dose: 15 ml Vancomycin HCl 1,250 mg/ (Sodium Chloride) 250 mls @ 166.6 mls/hr IVPB Q12H [facility] Last Admin: 11/27/17 14:28 Dose: 166.6 mls/hr Azithromycin 500 mg/ Sodium (Chloride) 250 mls @ 167 mls/hr IVPB Q24H [facility] PRN Reason: Protocol Last Admin: 11/26/17 22:30 Dose: 167 mls/hr Piperacillin Sod/Tazobactam Sod (Zosyn 3.375 Gm Iv Premix) 3.375 gm in 50 mls @ 100 mls/hr IVPB Q8H [facility] PRN Reason: Protocol Last Admin: 11/27/17 17:35 Dose: 100 mls/hr Losartan Potassium (Cozaar) 50 mg PO DAILY [facility] Last Admin: 11/27/17 10:11 Dose: 50 mg Metformin HCl (Glucophage Xr) 500 mg PO HS [facility] Last Admin: 11/27/17 21:16 Dose: 500 mg Metoprolol Tartrate (Lopressor) 25 mg PO BID [facility] Last Admin: 11/27/17 21:18 Dose: 25 mg Pantoprazole Sodium (Protonix Ec Tab) 40 mg PO DAILY [facility] Last Admin: 11/27/17 10:11 Dose: 40 mg Fluticasone/Salmeterol (Advair Diskus 250/50) 1 puff INH RQ12 [facility] Last Admin: 11/27/17 20:21 Dose: 1 puff Senna/Docusate Sodium (Senokot S 50 Mg-8.6 Mg) 1 tab PO BID [facility] Last Admin: 11/27/17 17:36 Dose: 1 tab - Labs Labs: 11/27/17 06:35 11/27/17 06:35 PT 13.8 SECONDS (9.7-12.2) H 11/24/17 11:19 INR 1.2 11/24/17 11:19 - Constitutional Appears: No Acute Distress - Head Exam Head Exam: NORMAL INSPECTION - Eye Exam Eye Exam: EOMI, PERRL - ENT Exam ENT Exam: Normal Oropharynx - Neck Exam Neck Exam: Normal Inspection - Respiratory Exam Respiratory Exam: Decreased Breath Sounds (LEFT SIDE.) - Cardiovascular Exam Cardiovascular Exam: REGULAR RHYTHM, +S1, +S2 - GI/Abdominal Exam GI & Abdominal Exam: Soft (OBESE . LESS TENDERNESS LEFT LATERAL ABDOMINAL WALL.) - Extremities Exam Extremities Exam: Pedal Edema. absent: Calf Tenderness - Neurological Exam Neurological Exam: Awake, CN II-XII Intact, Normal Gait, Oriented x3 - Psychiatric Exam Psychiatric exam: Normal Mood - Skin Skin Exam: Normal Color Assessment and Plan (1) Left upper quadrant abdominal swelling Status: Acute (2) Pneumonia Assessment & Plan: W/U FOR ANGE PNEUMONIA/LT PLEURAL EFFUSION CONTINUE IV ZOSYN 3.375 EVERY 8 HOURLY 11/15/17 CONTINUE IV VANCOMYCIN 1250 MG iv EVERY 12 HOURLY FOR mrsa STREP COVERAGE . CONTINUE IV ZITHROMAX 500 MG iv PIGGYBACK ONCE A DAY DAILY.11/23/17. F/U PLEURAL FLUID. F/U TB W/U. SPUTUM FOR AFB X 3 IN AM DAILY X 3 DAYS. F/U QUANTIFERON GOLD TB -TEST. Status: Acute (3) Bronchitis Status: Acute (4) Morbid obesity Status: Acute
[2017-11-28] MEDS: guaiFENesin DM 100 mg-10 mg/5 ml UD PO SCH ×4 (00:21→17:52)
[2017-11-28] MEDS: Albuterol-Ipratrop 3 mg / 0.5 (3 ml) UD INH SCH ×4 (01:15→19:48)
[2017-11-28] MEDS: Piperacill/Tazo 3.375gm in Dex 3.375 GM/50 ML BAG IVPB SCH ×3 (01:16→17:52)
[2017-11-28 08:10] LABS: BASO # 0.2 K/uL (0.0-0.2); BASO % 1.2 % (0.0-2.0); EOS # 0.2 K/uL (0.0-0.7); EOS % 1.4 % (0.0-4.0); HEMOGLOBIN 9.2 g/dL (12.0-18.0); LYMPH # 1.7 K/uL (1.0-4.3); LYMPH % 13.3 % (20.0-40.0); MEAN CELL VOLUME 80.4 fL (80.0-94.0); MEAN CORPUSCULAR HEMOGLOBIN 26.7 pg (27.0-31.0); MEAN CORPUSCULAR HGB CONC 33.2 g/dL (33.0-37.0); MEAN PLATELET VOLUME 7.6 fL (7.2-11.7); MONO # 1.4 K/uL (0.0-0.8); MONO % 10.5 % (0.0-10.0); NEUT # 9.6 K/uL (1.8-7.0); NEUT % 73.6 % (50.0-75.0); NRBC % 0.1 % (0.0-2.0); RBC 3.44 Mil/uL (4.40-5.90); RED CELL DISTRIBUTION WIDTH 16.5 % (11.5-14.5); WHITE BLOOD COUNT 13.1 K/uL (4.8-10.8)
[2017-11-28 08:14] LABS: ALB/GLOB RATIO 1.1 (1.0-2.1); ALBUMIN 3.2 g/dL (3.5-5.0); ALT/SGPT 26 U/L (21-72); AST/SGOT 21 U/L (17-59); BLOOD UREA NITROGEN 15 mg/dL (9-20); CALCIUM 7.9 mg/dl (8.6-10.4); GFR AFRICAN-AMERICAN > 60; GFR NON-AFRICAN AMERICAN > 60
[2017-11-28] MEDS: Fluticasone-Salmeterol 250-50mcg Diskus INH SCH ×2 (08:28→19:48)
--- NOTE | 2017-11-28 09:58 | CP.PCM.PN ---
<Diony Patricia S - Last Filed: 11/28/17 15:41> Subjective - Date & Time of Evaluation Date of Evaluation: 11/28/17 Time of Evaluation: 09:58 - Subjective Subjective: Progress Note for Dr. Todd's Service Pt seen and examined at bedside. He is seated in the chair. Pt complains of costal pain that is associated with coughing in the interior lateral aspect of the rib cage on the left. He states that he has been having large bowel movements that are solid, not watery/loose. He does continue to cough and this is productive of white sputum. He denies fevers and chills. Objective - Vital Signs/Intake and Output Vital Signs (last 24 hours): Temp Pulse Resp BP Pulse Ox 98.6 F 80 20 105/60 96 11/28/17 08:00 11/28/17 08:00 11/28/17 08:00 11/28/17 08:00 11/28/17 08:00 Intake and Output: 11/28/17 11/28/17 06:59 18:59 Intake Total 615 Balance 615 - Medications Medications: Current Medications Albuterol (Ventolin Hfa 90 Mcg/Actuation (8 G)) 2 puff IH RQ6 PRN PRN Reason: SOB Last Admin: 11/18/17 08:19 Dose: 2 puff Albuterol/Ipratropium (Duoneb 3 Mg/0.5 Mg (3 Ml) Ud) 3 ml INH RQ6 [facility] Last Admin: 11/28/17 08:28 Dose: 3 ml Aspirin (Ecotrin) 81 mg PO DAILY [facility] Last Admin: 11/27/17 10:11 Dose: 81 mg Enoxaparin Sodium (Lovenox) 40 mg SC DAILY [facility] Last Admin: 11/27/17 10:10 Dose: 40 mg Furosemide (Lasix) 40 mg IVP DAILY [facility] Last Admin: 11/27/17 10:10 Dose: 40 mg Guaifenesin/Dextromethorphan (Robitussin Dm) 15 ml PO Q6H [facility] Last Admin: 11/28/17 07:00 Dose: 15 ml Vancomycin HCl 1,250 mg/ (Sodium Chloride) 250 mls @ 166.6 mls/hr IVPB Q12H [facility] Last Admin: 11/28/17 02:43 Dose: 166.6 mls/hr Azithromycin 500 mg/ Sodium (Chloride) 250 mls @ 167 mls/hr IVPB Q24H [facility] PRN Reason: Protocol Last Admin: 11/28/17 00:00 Dose: 167 mls/hr Piperacillin Sod/Tazobactam Sod (Zosyn 3.375 Gm Iv Premix) 3.375 gm in 50 mls @ 100 mls/hr IVPB Q8H [facility] PRN Reason: Protocol Last Admin: 11/28/17 01:16 Dose: 100 mls/hr Losartan Potassium (Cozaar) 50 mg PO DAILY [facility] Last Admin: 11/27/17 10:11 Dose: 50 mg Metformin HCl (Glucophage Xr) 500 mg PO HS [facility] Last Admin: 11/27/17 21:16 Dose: 500 mg Metoprolol Tartrate (Lopressor) 25 mg PO BID [facility] Last Admin: 11/27/17 21:18 Dose: 25 mg Pantoprazole Sodium (Protonix Ec Tab) 40 mg PO DAILY [facility] Last Admin: 11/27/17 10:11 Dose: 40 mg Fluticasone/Salmeterol (Advair Diskus 250/50) 1 puff INH RQ12 [facility] Last Admin: 11/28/17 08:28 Dose: 1 puff Senna/Docusate Sodium (Senokot S 50 Mg-8.6 Mg) 1 tab PO BID [facility] Last Admin: 11/27/17 17:36 Dose: 1 tab - Labs Labs: 11/28/17 07:42 11/28/17 07:42 PT 13.8 SECONDS (9.7-12.2) H 11/24/17 11:19 INR 1.2 11/24/17 11:19 - Constitutional Appears: No Acute Distress - Head Exam Head Exam: ATRAUMATIC, NORMOCEPHALIC - Eye Exam Eye Exam: EOMI - ENT Exam ENT Exam: Mucous Membranes Moist - Respiratory Exam Respiratory Exam: NORMAL BREATHING PATTERN Additional comments: decreased breath sounds L>R difficult to auscultate given body habitus - Cardiovascular Exam Cardiovascular Exam: REGULAR RHYTHM - GI/Abdominal Exam GI & Abdominal Exam: Soft, Tenderness (mild tenderness to palpation along lower costal margin L>R) - Neurological Exam Neurological Exam: Alert, Awake, Oriented x3 - Psychiatric Exam Psychiatric exam: Anxious - Skin Skin Exam: Dry, Warm Assessment and Plan - Assessment and Plan (Free Text) Plan: Abdominal wall cellulitis 11/28- patient is currently s/p IR intervention and awaiting results for the collected specimen. He continues to have tenderness along the left upper abdomen. Consult placed to ID- Dr. Pete severino appreciated. -continue IV zosyn 3.375g IV q8hrs, vanc 1.250 g IV BID, Azithro 500mg IV daily. -maintain vanc level 10-20 Consult placed gen surg- Dr. Catherine severino appreciated - cont warm compresses - no drainable collection at this time - currently no surgical intervention needed Abd/Pelv CT w/IV contrast - Extensive fluid in the left lateral abdominal wall subcutaneous fat. This is of uncertain etiology, but could be due to recent trauma, i.e., represent resolving subcutaneous hemorrhage. Soft tissue infection is not excluded. No soft tissue gas or abscess is seen, but note that the left abdominal wall soft tissues are not completely included on the scan. - Small to moderate left pleural effusion. - See full report. Blood cultures negative x 5 days Pleural Effusion Consult placed to IR Dr. Anai severino appreciated s/p thoracentesis 11/24/17-> 60cc serosanguinous fluid removed f/u pleural fluid analysis Chest CT 11/22/17 - L pleural effusion, LLL atelectasis, see full report. CXR 11/28/17- large left pleural effusion with compressive atelectasis ICU was called and case was discussed with Dr. Fischer. Recommendation was for surgery/IR chest tube placement. psychiatry resident was contacted who advised IR guided procedure as opposed to anatomical introduction of the chest tube. STAT IR chest tube was ordered. Case discussed with PA on 3T, who contacted Dr. Aranda. Dr. Todd was notified as well who requested STAT surgical consult. AFB- negative Mycobacterium cx- pending Sputum gram stain- few g+ cocci in clusters (final) Lasix 40mg IV daily Bronchitis Consult placed to ID- Dr. Pete severino appreciated. -continue IV zosyn 3.375g IV q8hrs, vanc 1.250 g IV BID, Azithro 500mg IV daily. -maintain vanc level 10-20 Ventolin inhaler 2p q6hrs Duonebs q6hrs Robitussin DM 15mL PO q6hrs Advair diskus 1 puff q 12. Sputum culture negative. HTN;chronic Losartan 50mg PO daily Metorprolol tar 25mg PO BID Pulmonary htn -pt has borderline pulmonary hypertension. -pulm consult. recs appreciated. Morbid obesity -outpatient management upon discharge Prediabetes HGB a1c 6.0 Metformin 500mg PO QHS Anemia Iron studies show iron deficiency anemia; will add IV iron Stool occult negative Borderline normocytic/microcytic GI/DVT ppx SCDs Lovenox daily Protonix 40mg PO daily ASA 81mg PO daily Case discussed with Dr. Todd All management as per Dr. Leonides Todd <Ky Todd - Last Filed: 11/28/17 16:20> Objective - Vital Signs/Intake and Output Vital Signs (last 24 hours): Temp Pulse Resp BP Pulse Ox 98.6 F 80 20 105/60 96 11/28/17 08:00 11/28/17 08:00 11/28/17 08:00 11/28/17 10:49 11/28/17 08:00 Intake and Output: 11/28/17 11/28/17 06:59 18:59 Intake Total 615 680 Output Total 600 Balance 615 80 - Medications Medications: Current Medications Albuterol (Ventolin Hfa 90 Mcg/Actuation (8 G)) 2 puff IH RQ6 PRN PRN Reason: SOB Last Admin: 11/18/17 08:19 Dose: 2 puff Albuterol/Ipratropium (Duoneb 3 Mg/0.5 Mg (3 Ml) Ud) 3 ml INH RQ6 [facility] Last Admin: 11/28/17 14:20 Dose: 3 ml Aspirin (Ecotrin) 81 mg PO DAILY [facility] Last Admin: 11/28/17 10:49 Dose: 81 mg Enoxaparin Sodium (Lovenox) 40 mg SC DAILY [facility] Last Admin: 11/28/17 10:50 Dose: 40 mg Furosemide (Lasix) 40 mg IVP DAILY [facility] Last Admin: 11/28/17 10:49 Dose: 40 mg Guaifenesin/Dextromethorphan (Robitussin Dm) 15 ml PO Q6H [facility] Last Admin: 11/28/17 11:47 Dose: 15 ml Vancomycin HCl 1,250 mg/ (Sodium Chloride) 250 mls @ 166.6 mls/hr IVPB Q12H [facility] Last Admin: 11/28/17 14:55 Dose: 166.6 mls/hr Azithromycin 500 mg/ Sodium (Chloride) 250 mls @ 167 mls/hr IVPB Q24H [facility] PRN Reason: Protocol Last Admin: 11/28/17 00:00 Dose: 167 mls/hr Piperacillin Sod/Tazobactam Sod (Zosyn 3.375 Gm Iv Premix) 3.375 gm in 50 mls @ 100 mls/hr IVPB Q8H [facility] PRN Reason: Protocol Last Admin: 11/28/17 10:38 Dose: 100 mls/hr Losartan Potassium (Cozaar) 50 mg PO DAILY [facility] Last Admin: 11/28/17 10:50 Dose: Not Given Metformin HCl (Glucophage Xr) 500 mg PO HS [facility] Last Admin: 11/27/17 21:16 Dose: 500 mg Metoprolol Tartrate (Lopressor) 25 mg PO BID [facility] Last Admin: 11/28/17 10:50 Dose: Not Given Pantoprazole Sodium (Protonix Ec Tab) 40 mg PO DAILY [facility] Last Admin: 11/28/17 10:41 Dose: 40 mg Fluticasone/Salmeterol (Advair Diskus 250/50) 1 puff INH RQ12 [facility] Last Admin: 11/28/17 08:28 Dose: 1 puff Senna/Docusate Sodium (Senokot S 50 Mg-8.6 Mg) 1 tab PO BID [facility] Last Admin: 11/28/17 10:51 Dose: 1 tab - Labs Labs: 11/28/17 07:42 11/28/17 07:42 PT 13.8 SECONDS (9.7-12.2) H 11/24/17 11:19 INR 1.2 11/24/17 11:19
[2017-11-28] MEDS: Pantoprazole 40 mg EC Tab PO SCH (10:41)
[2017-11-28] MEDS: Enoxaparin 40 mg Syringe SC SCH (10:50)
[2017-11-28] MEDS: Docusate-Senna 50 mg-8.6 mg Tab PO SCH ×2 (10:51→17:52)
--- NOTE | 2017-11-28 12:22 | CP.PCM.PN ---
Subjective - Date & Time of Evaluation Date of Evaluation: 11/28/17 Time of Evaluation: 07:10 - Subjective Subjective: clinically same Objective - Vital Signs/Intake and Output Vital Signs (last 24 hours): Temp Pulse Resp BP Pulse Ox 98.6 F 80 20 105/60 96 11/28/17 08:00 11/28/17 08:00 11/28/17 08:00 11/28/17 10:49 11/28/17 08:00 Intake and Output: 11/28/17 11/28/17 06:59 18:59 Intake Total 615 Balance 615 - Medications Medications: Current Medications Albuterol (Ventolin Hfa 90 Mcg/Actuation (8 G)) 2 puff IH RQ6 PRN PRN Reason: SOB Last Admin: 11/18/17 08:19 Dose: 2 puff Albuterol/Ipratropium (Duoneb 3 Mg/0.5 Mg (3 Ml) Ud) 3 ml INH RQ6 [facility] Last Admin: 11/28/17 08:28 Dose: 3 ml Aspirin (Ecotrin) 81 mg PO DAILY [facility] Last Admin: 11/28/17 10:49 Dose: 81 mg Enoxaparin Sodium (Lovenox) 40 mg SC DAILY [facility] Last Admin: 11/28/17 10:50 Dose: 40 mg Furosemide (Lasix) 40 mg IVP DAILY [facility] Last Admin: 11/28/17 10:49 Dose: 40 mg Guaifenesin/Dextromethorphan (Robitussin Dm) 15 ml PO Q6H [facility] Last Admin: 11/28/17 11:47 Dose: 15 ml Vancomycin HCl 1,250 mg/ (Sodium Chloride) 250 mls @ 166.6 mls/hr IVPB Q12H [facility] Last Admin: 11/28/17 02:43 Dose: 166.6 mls/hr Azithromycin 500 mg/ Sodium (Chloride) 250 mls @ 167 mls/hr IVPB Q24H [facility] PRN Reason: Protocol Last Admin: 11/28/17 00:00 Dose: 167 mls/hr Piperacillin Sod/Tazobactam Sod (Zosyn 3.375 Gm Iv Premix) 3.375 gm in 50 mls @ 100 mls/hr IVPB Q8H [facility] PRN Reason: Protocol Last Admin: 11/28/17 10:38 Dose: 100 mls/hr Losartan Potassium (Cozaar) 50 mg PO DAILY [facility] Last Admin: 11/28/17 10:50 Dose: Not Given Metformin HCl (Glucophage Xr) 500 mg PO HS [facility] Last Admin: 11/27/17 21:16 Dose: 500 mg Metoprolol Tartrate (Lopressor) 25 mg PO BID [facility] Last Admin: 11/28/17 10:50 Dose: Not Given Pantoprazole Sodium (Protonix Ec Tab) 40 mg PO DAILY [facility] Last Admin: 11/28/17 10:41 Dose: 40 mg Fluticasone/Salmeterol (Advair Diskus 250/50) 1 puff INH RQ12 [facility] Last Admin: 11/28/17 08:28 Dose: 1 puff Senna/Docusate Sodium (Senokot S 50 Mg-8.6 Mg) 1 tab PO BID [facility] Last Admin: 11/28/17 10:51 Dose: 1 tab - Labs Labs: 11/28/17 07:42 11/28/17 07:42 PT 13.8 SECONDS (9.7-12.2) H 11/24/17 11:19 INR 1.2 11/24/17 11:19 - Constitutional Appears: Well - Head Exam Head Exam: ATRAUMATIC, NORMAL INSPECTION, NORMOCEPHALIC - Eye Exam Eye Exam: EOMI, Normal appearance, PERRL Pupil Exam: NORMAL ACCOMODATION, PERRL - ENT Exam ENT Exam: Mucous Membranes Moist, Normal Exam - Neck Exam Neck Exam: Full ROM, Normal Inspection. absent: Lymphadenopathy - Respiratory Exam Respiratory Exam: Decreased Breath Sounds - Cardiovascular Exam Cardiovascular Exam: REGULAR RHYTHM, +S1, +S2 - GI/Abdominal Exam GI & Abdominal Exam: Soft, Diminished Bowel Sounds - Rectal Exam Rectal Exam: Deferred Assessment and Plan - Assessment and Plan (Free Text) Plan: Isolations Follow-up with Dr. Naik Continue GI and DVT prophylaxis Continue IV Vanco Continue IV Zithromax Continue IV Apresoline tazobactam Continue as ordered Pleural effusion treatment as per pulmonary Follow-up with the consulatn as ordered Abdominal wall cellulitis 11/28- patient is currently s/p IR intervention and awaiting results for the collected specimen. He continues to have tenderness along the left upper abdomen. Consult placed to ID- Dr. Rome- recs appreciated. -continue IV zosyn 3.375g IV q8hrs, vanc 1.250 g IV BID, Azithro 500mg IV daily. -maintain vanc level 10-20 Consult placed gen surg- Dr. Catherine severino appreciated - cont warm compresses - no drainable collection at this time - currently no surgical intervention needed Abd/Pelv CT w/IV contrast - Extensive fluid in the left lateral abdominal wall subcutaneous fat. This is of uncertain etiology, but could be due to recent trauma, i.e., represent resolving subcutaneous hemorrhage. Soft tissue infection is not excluded. No soft tissue gas or abscess is seen, but note that the left abdominal wall soft tissues are not completely included on the scan. - Small to moderate left pleural effusion. - See full report. Blood cultures negative x 5 days Pleural Effusion Consult placed to IR Dr. Anai severino appreciated s/p thoracentesis 11/24/17-> 60cc serosanguinous fluid removed f/u pleural fluid analysis Chest CT 11/22/17 - L pleural effusion, LLL atelectasis, see full report. CXR 11/28/17- large left pleural effusion with compressive atelectasis ICU was called and case was discussed with Dr. Fischer. Recommendation was for surgery/IR chest tube placement. advanced manufacturing vice president was contacted who advised IR guided procedure as opposed to anatomical introduction of the chest tube. STAT IR chest tube was ordered. Case discussed with PA on 3T, who contacted Dr. Aranda. Dr. Todd was notified as well who requested STAT surgical consult. AFB- negative Mycobacterium cx- pending Sputum gram stain- few g+ cocci in clusters (final) Lasix 40mg IV daily Bronchitis Consult placed to ID- Dr. Pete severino appreciated. -continue IV zosyn 3.375g IV q8hrs, vanc 1.250 g IV BID, Azithro 500mg IV daily. -maintain vanc level 10-20 Ventolin inhaler 2p q6hrs Duonebs q6hrs Robitussin DM 15mL PO q6hrs Advair diskus 1 puff q 12. Sputum culture negative.
--- NOTE | 2017-11-28 13:52 | RAD ---
HISTORY: ANGE PNUMONIA/LEFT PARAPNEUMONIC EFFUSION. COMPARISON: 11/16/2017 two-view chest. 11/22/2017 CT thorax TECHNIQUE: Chest PA and lateral FINDINGS: LUNGS: Near complete opacification on the left lung. PLEURA: Large left pleural effusion. CARDIOVASCULAR: Normal. OSSEOUS STRUCTURES: No significant abnormalities. VISUALIZED UPPER ABDOMEN: Normal. OTHER FINDINGS: Insert mediastinal structures to the contralateral, right side. IMPRESSION: Large left pleural effusion, compressive atelectasis.
[2017-11-28 15:46] LABS: ABG ALLEN TEST POS; ARTERIAL BLOOD GAS HCO3 27.9 mmol/L (21-28); ARTERIAL BLOOD GAS HEMOGLOBIN 8.7 g/dL (11.7-17.4); ARTERIAL BLOOD GAS PCO2 42 mm/Hg (35-45); ARTERIAL BLOOD GAS PH 7.44 (7.35-7.45); ARTERIAL BLOOD GAS PO2 51 mm/Hg (80-100); ARTERIAL BLOOD GAS TCO2 29.8 mmol/L (22-28)
--- NOTE | 2017-11-28 17:05 | CP.PCM.CON ---
<Yahir Ragland - Last Filed: 11/29/17 07:07> History of Present Illness - History of Present Illness History of Present Illness: General Surgery Consult: Dr New PT S&E in iso room on 3T. Asked to see pt again regarding left sided pleural effusion. Pt had thoracentesis several days ago but fluid has reaccumulated. Pt reports he has had some worsening sob over this time. Pt is extremely anxious and very concerned that he is "dying". Feels a constant pain in the left side of his chest originally attributed to cellulitis, but now pt says pain is worse with inspiration and coughing. Denies any fevers, chills, nausea or vomiting. Explained to pt he will likely need his chest drained with a large tube, and this tube will likely remain in place for several days. Risks, benefits of procedure we explained. Pt agrees to have procedure done tomorrow. Review of Systems - Review of Systems All systems: reviewed and no additional remarkable complaints except (as per hpi ) Past Patient History - Infectious Disease Hx of Infectious Diseases: None - Past Medical History & Family History Past Medical History?: No - Past Social History Smoking Status: Light Smoker < 10 Cigarettes Daily - CARDIAC Hx Hypertension: Yes - ENDOCRINE/METABOLIC Other/Comment: Obesity as per patient - MUSCULOSKELETAL/RHEUMATOLOGICAL Hx Falls: No - PSYCHIATRIC Hx Depression: Yes Hx Substance Use: Yes - SURGICAL HISTORY Hx Surgeries: No - ANESTHESIA Hx Anesthesia: No Hx Anesthesia Reactions: No Hx Malignant Hyperthermia: No Meds Home Medications: Home Medication List Medication Instructions Recorded Confirmed Type Amoxicillin/Clavulanate [Augmentin 1 tab PO Q12 #20 tab 11/21/17 Rx 875 MG-125 MG] Saccharomyces Boulardi [Florastor] 250 mg PO Q12 #20 cap 11/21/17 Rx Allergies/Adverse Reactions: Allergies Allergy/AdvReac Type Severity Reaction Status Date / Time No Known Allergies Allergy Verified 11/14/17 19:09 - Medications Medications: Current Medications Albuterol (Ventolin Hfa 90 Mcg/Actuation (8 G)) 2 puff IH RQ6 PRN PRN Reason: SOB Last Admin: 11/18/17 08:19 Dose: 2 puff Albuterol/Ipratropium (Duoneb 3 Mg/0.5 Mg (3 Ml) Ud) 3 ml INH RQ6 [facility] Last Admin: 11/28/17 14:20 Dose: 3 ml Aspirin (Ecotrin) 81 mg PO DAILY [facility] Last Admin: 11/28/17 10:49 Dose: 81 mg Enoxaparin Sodium (Lovenox) 40 mg SC DAILY [facility] Last Admin: 11/28/17 10:50 Dose: 40 mg Furosemide (Lasix) 40 mg IVP DAILY [facility] Last Admin: 11/28/17 10:49 Dose: 40 mg Guaifenesin/Dextromethorphan (Robitussin Dm) 15 ml PO Q6H [facility] Last Admin: 11/28/17 11:47 Dose: 15 ml Vancomycin HCl 1,250 mg/ (Sodium Chloride) 250 mls @ 166.6 mls/hr IVPB Q12H [facility] Last Admin: 11/28/17 14:55 Dose: 166.6 mls/hr Azithromycin 500 mg/ Sodium (Chloride) 250 mls @ 167 mls/hr IVPB Q24H [facility] PRN Reason: Protocol Last Admin: 11/28/17 00:00 Dose: 167 mls/hr Piperacillin Sod/Tazobactam Sod (Zosyn 3.375 Gm Iv Premix) 3.375 gm in 50 mls @ 100 mls/hr IVPB Q8H [facility] PRN Reason: Protocol Last Admin: 11/28/17 10:38 Dose: 100 mls/hr Losartan Potassium (Cozaar) 50 mg PO DAILY [facility] Last Admin: 11/28/17 10:50 Dose: Not Given Metformin HCl (Glucophage Xr) 500 mg PO HS [facility] Last Admin: 11/27/17 21:16 Dose: 500 mg Metoprolol Tartrate (Lopressor) 25 mg PO BID [facility] Last Admin: 11/28/17 10:50 Dose: Not Given Pantoprazole Sodium (Protonix Ec Tab) 40 mg PO DAILY [facility] Last Admin: 11/28/17 10:41 Dose: 40 mg Fluticasone/Salmeterol (Advair Diskus 250/50) 1 puff INH RQ12 [facility] Last Admin: 11/28/17 08:28 Dose: 1 puff Senna/Docusate Sodium (Senokot S 50 Mg-8.6 Mg) 1 tab PO BID [facility] Last Admin: 11/28/17 10:51 Dose: 1 tab Physical Exam - Constitutional Appears: Non-toxic, No Acute Distress - Eye Exam Eye Exam: Normal appearance - ENT Exam ENT Exam: Mucous Membranes Moist - Respiratory Exam Respiratory Exam: Decreased Breath Sounds (left), NORMAL BREATHING PATTERN. absent: Accessory Muscle Use, Respiratory Distress - Cardiovascular Exam Cardiovascular Exam: REGULAR RHYTHM. absent: Tachycardia - GI/Abdominal Exam GI & Abdominal Exam: Soft. absent: Distended, Tenderness Results - Vital Signs Recent Vital Signs: Last Vital Signs Temp 98.6 F 11/28/17 08:00 Pulse 80 11/28/17 08:00 Resp 20 11/28/17 08:00 BP 105/60 11/28/17 10:49 Pulse Ox 96 11/28/17 08:00 - Labs Result Diagrams: 11/28/17 07:42 11/28/17 07:42 Labs: Laboratory Results - last 24 hr 11/24/17 11/27/17 11/28/17 07:09 21:28 07:23 WBC RBC Hgb Hct MCV MCH MCHC RDW Plt Count MPV Neut % (Auto) Lymph % (Auto) [place] % (Auto) Eos % (Auto) Baso % (Auto) Neut # (Auto) Lymph # (Auto) [place] # (Auto) Eos # (Auto) Baso # (Auto) Puncture Site pCO2 pO2 HCO3 ABG pH ABG Total CO2 ABG O2 Saturation ABG Base Excess ABG Hemoglobin ABG Carboxyhemoglobin POC ABG HHb (Measured) ABG Methemoglobin Ramesh Test A-a O2 Difference Respiratory Index Hgb O2 Saturation FiO2 Sodium Potassium Chloride Carbon Dioxide Anion Gap BUN Creatinine Est GFR ( Amer) Est GFR (Non-Af Amer) POC Glucose (mg/dL) 146 H 122 H Random Glucose Calcium Phosphorus Magnesium Total Bilirubin AST ALT Alkaline Phosphatase Total Protein Albumin Globulin Albumin/Globulin Ratio Vancomycin Trough TB Test (QFT) Nil 0.06 TB Test Mitogen - Nil 7.91 TB Test TB - Nil 0.02 TB Test (QFT) Negative 11/28/17 11/28/17 11/28/17 07:42 07:42 11:17 WBC 13.1 H RBC 3.44 L Hgb 9.2 L Hct 27.6 L MCV 80.4 MCH 26.7 L MCHC 33.2 RDW 16.5 H Plt Count 435 H MPV 7.6 Neut % (Auto) 73.6 Lymph % (Auto) 13.3 L [place] % (Auto) 10.5 H Eos % (Auto) 1.4 Baso % (Auto) 1.2 Neut # (Auto) 9.6 H Lymph # (Auto) 1.7 [place] # (Auto) 1.4 H Eos # (Auto) 0.2 Baso # (Auto) 0.2 Puncture Site pCO2 pO2 HCO3 ABG pH ABG Total CO2 ABG O2 Saturation ABG Base Excess ABG Hemoglobin ABG Carboxyhemoglobin POC ABG HHb (Measured) ABG Methemoglobin Ramesh Test A-a O2 Difference Respiratory Index Hgb O2 Saturation FiO2 Sodium 139 Potassium 4.0 Chloride 101 Carbon Dioxide 26 Anion Gap 16 BUN 15 Creatinine 1.1 Est GFR ( Amer) > 60 Est GFR (Non-Af Amer) > 60 POC Glucose (mg/dL) 133 H Random Glucose 106 Calcium 7.9 L Phosphorus 4.0 Magnesium 1.9 Total Bilirubin 0.3 AST 21 ALT 26 Alkaline Phosphatase 78 Total Protein 6.3 Albumin 3.2 L Globulin 3.0 Albumin/Globulin Ratio 1.1 Vancomycin Trough TB Test (QFT) Nil TB Test Mitogen - Nil TB Test TB - Nil TB Test (QFT) 11/28/17 11/28/17 14:02 15:40 WBC RBC Hgb Hct MCV MCH MCHC RDW Plt Count MPV Neut % (Auto) Lymph % (Auto) [place] % (Auto) Eos % (Auto) Baso % (Auto) Neut # (Auto) Lymph # (Auto) [place] # (Auto) Eos # (Auto) Baso # (Auto) Puncture Site Rradial pCO2 42 pO2 51 L HCO3 27.9 ABG pH 7.44 ABG Total CO2 29.8 H ABG O2 Saturation 91.0 L ABG Base Excess 4.0 H ABG Hemoglobin 8.7 L ABG Carboxyhemoglobin 2.8 H POC ABG HHb (Measured) 8.6 H ABG Methemoglobin 1.7 Ramesh Test Pos A-a O2 Difference 46.0 Respiratory Index 0.9 Hgb O2 Saturation 86.9 L FiO2 21.0 Sodium Potassium Chloride Carbon Dioxide Anion Gap BUN Creatinine Est GFR ( Amer) Est GFR (Non-Af Amer) POC Glucose (mg/dL) Random Glucose Calcium Phosphorus Magnesium Total Bilirubin AST ALT Alkaline Phosphatase Total Protein Albumin Globulin Albumin/Globulin Ratio Vancomycin Trough 8.0 TB Test (QFT) Nil TB Test Mitogen - Nil TB Test TB - Nil TB Test (QFT) Assessment & Plan - Assessment and Plan (Free Text) Assessment: 42M with morbid obesity now with left sided effusion Plan: NPO @ [facility] OR for left thoracostomy tube tomorrow @ 12 d/w Dr Virgen Ragland, PGY3 <Andres New - Last Filed: 11/29/17 19:30> Meds - Medications Medications: Current Medications Albuterol (Ventolin Hfa 90 Mcg/Actuation (8 G)) 2 puff IH RQ6 PRN PRN Reason: SOB Last Admin: 11/18/17 08:19 Dose: 2 puff Albuterol/Ipratropium (Duoneb 3 Mg/0.5 Mg (3 Ml) Ud) 3 ml INH RQ6 [facility] Last Admin: 11/29/17 14:06 Dose: Not Given Aspirin (Ecotrin) 81 mg PO DAILY [facility] Last Admin: 11/29/17 11:31 Dose: 81 mg Enoxaparin Sodium (Lovenox) 40 mg SC DAILY [facility] Last Admin: 11/28/17 10:50 Dose: 40 mg Furosemide (Lasix) 40 mg IVP Q12 [facility] Guaifenesin/Dextromethorphan (Robitussin Dm) 15 ml PO Q6H [facility] Last Admin: 11/29/17 18:42 Dose: 15 ml Vancomycin HCl 1,250 mg/ (Sodium Chloride) 250 mls @ 166.6 mls/hr IVPB Q12H [facility] Last Admin: 11/29/17 03:13 Dose: 166.6 mls/hr Azithromycin 500 mg/ Sodium (Chloride) 250 mls @ 167 mls/hr IVPB Q24H [facility] PRN Reason: Protocol Last Admin: 11/28/17 22:31 Dose: 167 mls/hr Piperacillin Sod/Tazobactam Sod (Zosyn 3.375 Gm Iv Premix) 3.375 gm in 50 mls @ 100 mls/hr IVPB Q8H [facility] PRN Reason: Protocol Last Admin: 11/29/17 12:57 Dose: 50 mls Losartan Potassium (Cozaar) 50 mg PO DAILY [facility] Last Admin: 11/29/17 11:32 Dose: 50 mg Metformin HCl (Glucophage Xr) 500 mg PO HS [facility] Last Admin: 11/28/17 21:44 Dose: 500 mg Metoprolol Tartrate (Lopressor) 25 mg PO BID [facility] Last Admin: 11/29/17 11:31 Dose: 25 mg Morphine Sulfate (Morphine) 4 mg IVP Q4 PRN PRN Reason: Pain, moderate (4-7) Pantoprazole Sodium (Protonix Ec Tab) 40 mg PO DAILY [facility] Last Admin: 11/29/17 11:31 Dose: 40 mg Fluticasone/Salmeterol (Advair Diskus 250/50) 1 puff INH RQ12 [facility] Last Admin: 11/29/17 08:07 Dose: 1 puff Senna/Docusate Sodium (Senokot S 50 Mg-8.6 Mg) 1 tab PO BID [facility] Last Admin: 11/29/17 11:31 Dose: 1 tab Results - Vital Signs Recent Vital Signs: Last Vital Signs Temp 100.2 F H 11/29/17 15:50 Pulse 104 H 11/29/17 15:50 Resp 26 H 11/29/17 15:50 BP 123/58 L 11/29/17 15:50 Pulse Ox 100 11/29/17 15:50 - Labs Result Diagrams: 11/29/17 14:41 11/29/17 08:39 Labs: Laboratory Results - last 24 hr 11/28/17 11/28/17 11/29/17 16:38 21:51 06:17 WBC RBC Hgb Hct MCV MCH MCHC RDW Plt Count MPV Neut % (Auto) Lymph % (Auto) [place] % (Auto) Eos % (Auto) Baso % (Auto) Neut # (Auto) Lymph # (Auto) [place] # (Auto) Eos # (Auto) Baso # (Auto) PT INR APTT Puncture Site pCO2 pO2 HCO3 ABG pH ABG Total CO2 ABG O2 Saturation ABG Base Excess ABG Hemoglobin ABG Carboxyhemoglobin POC ABG HHb (Measured) ABG Methemoglobin Ramesh Test A-a O2 Difference Respiratory Index Hgb O2 Saturation Liter Flow FiO2 Sodium Potassium Chloride Carbon Dioxide Anion Gap BUN Creatinine Est GFR ( Amer) Est GFR (Non-Af Amer) POC Glucose (mg/dL) 97 122 H 106 Random Glucose Calcium Phosphorus Magnesium Total Bilirubin AST ALT Alkaline Phosphatase Total Protein Albumin Globulin Albumin/Globulin Ratio Fluid Source Fluid Appearance Fluid WBC Fluid RBC Fluid Tot Cell Count Fld Monocyte/Macrophag Blood Type Antibody Screen 11/29/17 11/29/17 11/29/17 08:39 08:39 11:41 WBC 12.2 H RBC 3.18 L Hgb 8.6 L Hct 25.7 L MCV 80.8 MCH 27.0 MCHC 33.4 RDW 16.2 H Plt Count 388 MPV 7.4 Neut % (Auto) 68.5 Lymph % (Auto) 17.1 L [place] % (Auto) 12.2 H Eos % (Auto) 1.3 Baso % (Auto) 0.9 Neut # (Auto) 8.4 H Lymph # (Auto) 2.1 [place] # (Auto) 1.5 H Eos # (Auto) 0.2 Baso # (Auto) 0.1 PT INR APTT Puncture Site pCO2 pO2 HCO3 ABG pH ABG Total CO2 ABG O2 Saturation ABG Base Excess ABG Hemoglobin ABG Carboxyhemoglobin POC ABG HHb (Measured) ABG Methemoglobin Ramesh Test A-a O2 Difference Respiratory Index Hgb O2 Saturation Liter Flow FiO2 Sodium 139 Potassium 3.9 Chloride 101 Carbon Dioxide 28 Anion Gap 13 BUN 12 Creatinine 1.1 Est GFR ( Amer) > 60 Est GFR (Non-Af Amer) > 60 POC Glucose (mg/dL) 112 H Random Glucose 106 Calcium 7.8 L Phosphorus 3.7 Magnesium 2.0 Total Bilirubin 0.3 AST 20 ALT 29 Alkaline Phosphatase 67 Total Protein 6.2 L Albumin 3.1 L Globulin 3.0 Albumin/Globulin Ratio 1.0 Fluid Source Fluid Appearance Fluid WBC Fluid RBC Fluid Tot Cell Count Fld Monocyte/Macrophag Blood Type Antibody Screen 11/29/17 11/29/17 11/29/17 14:00 14:41 14:41 WBC 15.7 H RBC 3.31 L Hgb 8.8 L Hct 26.8 L MCV 81.0 MCH 26.6 L MCHC 32.9 L RDW 16.6 H Plt Count 390 MPV 7.3 Neut % (Auto) Lymph % (Auto) [place] % (Auto) Eos % (Auto) Baso % (Auto) Neut # (Auto) Lymph # (Auto) [place] # (Auto) Eos # (Auto) Baso # (Auto) PT 14.2 H INR 1.3 APTT 19 L Puncture Site pCO2 pO2 HCO3 ABG pH ABG Total CO2 ABG O2 Saturation ABG Base Excess ABG Hemoglobin ABG Carboxyhemoglobin POC ABG HHb (Measured) ABG Methemoglobin Ramesh Test A-a O2 Difference Respiratory Index Hgb O2 Saturation Liter Flow FiO2 Sodium Potassium Chloride Carbon Dioxide Anion Gap BUN Creatinine Est GFR ( Amer) Est GFR (Non-Af Amer) POC Glucose (mg/dL) Random Glucose Calcium Phosphorus Magnesium Total Bilirubin AST ALT Alkaline Phosphatase Total Protein Albumin Globulin Albumin/Globulin Ratio Fluid Source Fluid Appearance Fluid WBC Fluid RBC Fluid Tot Cell Count Fld Monocyte/Macrophag Blood Type O POSITIVE Antibody Screen Negative 11/29/17 11/29/17 14:51 18:34 WBC RBC Hgb Hct MCV MCH MCHC RDW Plt Count MPV Neut % (Auto) Lymph % (Auto) [place] % (Auto) Eos % (Auto) Baso % (Auto) Neut # (Auto) Lymph # (Auto) [place] # (Auto) Eos # (Auto) Baso # (Auto) PT INR APTT Puncture Site Rra pCO2 48 H pO2 60 L HCO3 27.0 ABG pH 7.38 ABG Total CO2 29.9 H ABG O2 Saturation 94.6 L ABG Base Excess 2.8 ABG Hemoglobin 8.9 L ABG Carboxyhemoglobin 2.6 H POC ABG HHb (Measured) 5.2 H ABG Methemoglobin 1.1 Ramesh Test Po A-a O2 Difference 593.0 Respiratory Index 9.9 Hgb O2 Saturation 91.1 L Liter Flow 12.0 FiO2 100.0 Sodium Potassium Chloride Carbon Dioxide Anion Gap BUN Creatinine Est GFR ( Amer) Est GFR (Non-Af Amer) POC Glucose (mg/dL) Random Glucose Calcium Phosphorus Magnesium Total Bilirubin AST ALT Alkaline Phosphatase Total Protein Albumin Globulin Albumin/Globulin Ratio Fluid Source Pleural Fluid Appearance Bloody Fluid WBC 1223.0 H Fluid RBC 874348.0 H Fluid Tot Cell Count TEST NOT PERFORMED Fld Monocyte/Macrophag TEST NOT PERFORMED Blood Type Antibody Screen Attending/Attestation - Attestation I have personally seen and examined this patient.: Yes I have fully participated in the care of the patient.: Yes I have reviewed all pertinent clinical information: Yes Notes (Text): Pt was seen and examined at bedside Agree with above note and assessment Pt with severe morbid obesity with Left pleural effusion s/p failed IR Thoracentasis Pt is c/o SOB and left chest pain Lungs: Decreased air entry in left side. All 13 system reviewed. Labs and radiology reviewed Ass: Severe Morbid obesity, Recurrent left pleural effusions Plan: Left side chest tube in OR due to morbid obesity Consent NPO, IVF IV antibiotics c.w current mx Plan d.w pt in detail Risk and benefit explained in detail.
--- NOTE | 2017-11-28 18:03 | CT ---
PROCEDURE: CT Chest without contrast HISTORY: pneumonia COMPARISON: 11/22/2017 CT thorax TECHNIQUE: Contiguous axial images were obtained through the chest without intravenous contrast enhancement. Sagittal and coronal reconstructions were performed. Radiation dose (DLP): 1046.30 mGy-cm. This CT exam was performed using one or more of the following dose reduction techniques: Automated exposure control, adjustment of the mA and/or kV according to patient size, and/or use of iterative reconstruction technique. FINDINGS: LUNGS: Compressive atelectasis affecting the entire left lung. No suspicious findings in the right lung. Qualitatively the volume appears to be diminished compared to the prior study secondary to the findings in the left sam thorax. MEDIASTINUM: Unremarkable thoracic aorta. No aneurysm. Normal sized heart. Main pulmonary artery unremarkable. No vascular congestion. No lymphadenopathy. PLEURA: Large left pleural effusion resulting in compressive atelectasis left lung and shift of mediastinal structures to the right. BONES: No fracture. No destructive lesion. UPPER ABDOMEN: Grossly unremarkable. OTHER FINDINGS: None. IMPRESSION: Increasing left pleural effusion, complete collapse secondary to the effusion, compressive atelectasis affecting the entire left lung. Shift of mediastinal structures to the contralateral side. No active pulmonary disease right lung.
--- NOTE | 2017-11-28 18:45 | CP.PCM.PN ---
Subjective - Date & Time of Evaluation Date of Evaluation: 11/28/17 Time of Evaluation: 18:37 - Subjective Subjective: PT SEEN AND EXAMINED TODAY, RESPIRATION EASY AND UNLABORED, NAD Objective - Vital Signs/Intake and Output Vital Signs (last 24 hours): Temp Pulse Resp BP Pulse Ox 98.2 F 116 H 22 147/68 96 11/28/17 15:15 11/28/17 15:15 11/28/17 15:15 11/28/17 17:52 11/28/17 15:15 Intake and Output: 11/28/17 11/28/17 06:59 18:59 Intake Total 615 680 Output Total 600 Balance 615 80 - Medications Medications: Current Medications Albuterol (Ventolin Hfa 90 Mcg/Actuation (8 G)) 2 puff IH RQ6 PRN PRN Reason: SOB Last Admin: 11/18/17 08:19 Dose: 2 puff Albuterol/Ipratropium (Duoneb 3 Mg/0.5 Mg (3 Ml) Ud) 3 ml INH RQ6 [facility] Last Admin: 11/28/17 14:20 Dose: 3 ml Aspirin (Ecotrin) 81 mg PO DAILY [facility] Last Admin: 11/28/17 10:49 Dose: 81 mg Enoxaparin Sodium (Lovenox) 40 mg SC DAILY [facility] Last Admin: 11/28/17 10:50 Dose: 40 mg Furosemide (Lasix) 40 mg IVP DAILY [facility] Last Admin: 11/28/17 10:49 Dose: 40 mg Guaifenesin/Dextromethorphan (Robitussin Dm) 15 ml PO Q6H [facility] Last Admin: 11/28/17 17:52 Dose: 15 ml Vancomycin HCl 1,250 mg/ (Sodium Chloride) 250 mls @ 166.6 mls/hr IVPB Q12H [facility] Last Admin: 11/28/17 14:55 Dose: 166.6 mls/hr Azithromycin 500 mg/ Sodium (Chloride) 250 mls @ 167 mls/hr IVPB Q24H [facility] PRN Reason: Protocol Last Admin: 11/28/17 00:00 Dose: 167 mls/hr Piperacillin Sod/Tazobactam Sod (Zosyn 3.375 Gm Iv Premix) 3.375 gm in 50 mls @ 100 mls/hr IVPB Q8H [facility] PRN Reason: Protocol Last Admin: 11/28/17 17:52 Dose: 100 mls/hr Losartan Potassium (Cozaar) 50 mg PO DAILY [facility] Last Admin: 11/28/17 10:50 Dose: Not Given Metformin HCl (Glucophage Xr) 500 mg PO HS [facility] Last Admin: 11/27/17 21:16 Dose: 500 mg Metoprolol Tartrate (Lopressor) 25 mg PO BID [facility] Last Admin: 11/28/17 17:52 Dose: 25 mg Pantoprazole Sodium (Protonix Ec Tab) 40 mg PO DAILY [facility] Last Admin: 11/28/17 10:41 Dose: 40 mg Fluticasone/Salmeterol (Advair Diskus 250/50) 1 puff INH RQ12 [facility] Last Admin: 11/28/17 08:28 Dose: 1 puff Senna/Docusate Sodium (Senokot S 50 Mg-8.6 Mg) 1 tab PO BID [facility] Last Admin: 11/28/17 17:52 Dose: 1 tab - Labs Labs: 11/28/17 07:42 11/28/17 07:42 PT 13.8 SECONDS (9.7-12.2) H 11/24/17 11:19 INR 1.2 11/24/17 11:19 Assessment and Plan - Assessment and Plan (Free Text) Plan: 42 Y/O MALE WITH PMHX HTN, ANEMIA, MORBID OBESITY ADMITTED FOR ABDOMINAL CELLULIITS, PLEURAL EFFUSION, BRONCHITIS 11/24- THORACENTESIS -> 60 CC FLUID REMOVED REPEAT CXRAY (11/28)- INCREASING LEFT LARGE PLEURAL EFFUSION CT CHEST (11/28)- INCREASING PLEURAL EFFUSION, COMPLETE COLLAPSE SECONDARY TO THE EFFUSION, COMPRESSIVE ATELECTASIS AFFECTING THE ENTIRE LEFT LUNG, SHIFT OF MEDIASTINAL STRUCTURE TO THE CONTRALATERAL SIDE ICU CONSULT CALLED, US ORDERED SURGERY CONSULT APPRECIATED- PT WILL BE NPO MIDNIGHT FOR CHEST TUBE IN OR TOMORROW PT WILL BE MOVED TO TELE FLOOR FOR CLOSE OBSERVATION POC DISCUSSED WITH STAFF AND DR JAMES
--- NOTE | 2017-11-28 20:15 | US ---
EXAM: US Chest EXAM DATE/TIME: Exam ordered 11/28/2017 4:19 PM CLINICAL HISTORY: 42 years old, male; Condition or disease; Other: Pleural effusion; Additional info: Pleural effusion on cxr TECHNIQUE: Real-time ultrasound of the chest with image documentation. COMPARISON: CT - CHEST W/CONTRAST 2017-11-22 12:57 FINDINGS: Pleural space: Left: There is a moderate to large complex left pleural effusion. There is atelectasis noted of the left lower lobe. Right: No pleural effusion seen Soft tissues: Unremarkable. No mass or fluid collection. Lymph nodes: Unremarkable. No lymphadenopathy. IMPRESSION: 1. Moderate to large complex left pleural effusion. 2. No pleural effusion seen on the right
[2017-11-28] MEDS: Azithromycin 500 MG in Sodium Chloride 0.9% 250 ML IVPB SCH ×2 (22:31)
--- NOTE | 2017-11-28 22:51 | CP.PCM.PN ---
Subjective - Date & Time of Evaluation Date of Evaluation: 11/28/17 Time of Evaluation: 22:51 - Subjective Subjective: PT SEEN AND EXAMINED . +VE SOB ON SIDE OF BED. FINDINGS OF CXR DISCUSSED WITH TRANSITIONAL LIVING SPECIALIST MS Jacki NAVARRO. SEEN BY PULMONARY PT FOR CT CHEST /US ? CHEST TUBE PER SURGERY Objective - Vital Signs/Intake and Output Vital Signs (last 24 hours): Temp Pulse Resp BP Pulse Ox 98.2 F 116 H 22 147/68 96 11/28/17 15:15 11/28/17 15:15 11/28/17 15:15 11/28/17 17:52 11/28/17 15:15 Intake and Output: 11/28/17 11/29/17 18:59 06:59 Intake Total 680 Output Total 600 Balance 80 - Medications Medications: Current Medications Albuterol (Ventolin Hfa 90 Mcg/Actuation (8 G)) 2 puff IH RQ6 PRN PRN Reason: SOB Last Admin: 11/18/17 08:19 Dose: 2 puff Albuterol/Ipratropium (Duoneb 3 Mg/0.5 Mg (3 Ml) Ud) 3 ml INH RQ6 [facility] Last Admin: 11/28/17 19:48 Dose: 3 ml Aspirin (Ecotrin) 81 mg PO DAILY [facility] Last Admin: 11/28/17 10:49 Dose: 81 mg Enoxaparin Sodium (Lovenox) 40 mg SC DAILY [facility] Last Admin: 11/28/17 10:50 Dose: 40 mg Furosemide (Lasix) 40 mg IVP DAILY [facility] Last Admin: 11/28/17 10:49 Dose: 40 mg Guaifenesin/Dextromethorphan (Robitussin Dm) 15 ml PO Q6H [facility] Last Admin: 11/28/17 17:52 Dose: 15 ml Vancomycin HCl 1,250 mg/ (Sodium Chloride) 250 mls @ 166.6 mls/hr IVPB Q12H [facility] Last Admin: 11/28/17 14:55 Dose: 166.6 mls/hr Azithromycin 500 mg/ Sodium (Chloride) 250 mls @ 167 mls/hr IVPB Q24H [facility] PRN Reason: Protocol Last Admin: 11/28/17 22:31 Dose: 167 mls/hr Piperacillin Sod/Tazobactam Sod (Zosyn 3.375 Gm Iv Premix) 3.375 gm in 50 mls @ 100 mls/hr IVPB Q8H [facility] PRN Reason: Protocol Last Admin: 11/28/17 17:52 Dose: 100 mls/hr Losartan Potassium (Cozaar) 50 mg PO DAILY [facility] Last Admin: 11/28/17 10:50 Dose: Not Given Metformin HCl (Glucophage Xr) 500 mg PO HS [facility] Last Admin: 11/28/17 21:44 Dose: 500 mg Metoprolol Tartrate (Lopressor) 25 mg PO BID [facility] Last Admin: 11/28/17 17:52 Dose: 25 mg Pantoprazole Sodium (Protonix Ec Tab) 40 mg PO DAILY [facility] Last Admin: 11/28/17 10:41 Dose: 40 mg Fluticasone/Salmeterol (Advair Diskus 250/50) 1 puff INH RQ12 [facility] Last Admin: 11/28/17 19:48 Dose: 1 puff Senna/Docusate Sodium (Senokot S 50 Mg-8.6 Mg) 1 tab PO BID [facility] Last Admin: 11/28/17 17:52 Dose: 1 tab - Labs Labs: 11/28/17 07:42 11/28/17 07:42 PT 13.8 SECONDS (9.7-12.2) H 11/24/17 11:19 INR 1.2 11/24/17 11:19 - Constitutional Appears: No Acute Distress - Head Exam Head Exam: NORMAL INSPECTION - Eye Exam Eye Exam: EOMI, PERRL - ENT Exam ENT Exam: Normal Oropharynx - Neck Exam Neck Exam: Normal Inspection - Respiratory Exam Respiratory Exam: Decreased Breath Sounds (LT SIDE) - Cardiovascular Exam Cardiovascular Exam: REGULAR RHYTHM, +S1 - GI/Abdominal Exam GI & Abdominal Exam: Soft, Tenderness (LT LATERAL ABDOMINAL WALL), Normal Bowel Sounds - Extremities Exam Extremities Exam: Normal Capillary Refill, Pedal Edema. absent: Calf Tenderness - Neurological Exam Neurological Exam: Awake, CN II-XII Intact, Normal Gait, Oriented x3 - Psychiatric Exam Psychiatric exam: Normal Mood - Skin Skin Exam: Normal Color, Warm Assessment and Plan (1) Left upper quadrant abdominal swelling Assessment & Plan: ON ABX . Status: Acute (2) Pneumonia Assessment & Plan: W/U FOR ANGE PNEUMONIA/LT PLEURAL EFFUSION CXR -11/28/17 COMPLETE WIPE OUT LT. LUNG/LT PLEURAL EFFUSION /ATELECTASIS. CONTINUE IV ZOSYN 3.375 EVERY 8 HOURLY 11/15/17 CONTINUE IV VANCOMYCIN 1250 MG iv EVERY 12 HOURLY FOR mrsa STREP COVERAGE . CONTINUE IV ZITHROMAX 500 MG iv PIGGYBACK ONCE A DAY DAILY.11/23/17. PULMONARY ON BOARD. FOR CT CHEST/US LT LUNG. Status: Acute (3) Bronchitis Status: Acute (4) Morbid obesity Status: Acute
--- NOTE | 2017-11-28 23:43 | CON ---
DATE: REASON FOR CONSULTATION: Sinus tachycardia and abnormal EKG. HISTORY OF PRESENT ILLNESS: The patient is a 42-year-old morbidly obese, -German male, who according to him weighs 450 pounds. He is homeless, lives in a fdc. Smoker and drinker. He was admitted on 11/14/2017 because of swelling and pain in the upper left abdominal wall which was worsening with movement. The patient denies any fall or injury. He is also experiencing shortness of breath and productive cough. The patient is unaware of any prior cardiac history. SOCIAL HISTORY: The patient is a smoker. The patient is a drinker. He is homeless, lives in a fdc. MEDICATIONS: Advair one puff twice a day, Zithromax 500 mg intravenously daily, Cozaar 50 mg once a day, aspirin 81 mg once a day, metformin 500 mg daily, Lasix 40 mg intravenously daily, Lopressor 25 mg once a day, Lovenox 40 mg subcutaneous once a day, vancomycin 1.25 gm intravenously q.12 hours, Zosyn 3.375 gm intravenously q.8 hours. REVIEW OF SYSTEMS: No nausea or vomiting. No dizziness or syncope. PHYSICAL EXAMINATION: GENERAL: The patient is a morbidly obese, middle aged male who is mildly tachypneic but does not appear to be in acute distress. VITAL SIGNS: Blood pressure 105/60, heart rate earlier was 109, currently is 80 beats per minute, temperature 98.6, earlier temperature was 99.5, respirations 20. HEENT: Pale conjunctivae. CHEST: Diffuse bilateral rhonchi. HEART: S1 and S2 are regular and distant. ABDOMEN: Soft. EXTREMITIES: 1+ pitting edema. LABORATORIES: Previous SMA-7 is within normal limits. Calcium is below normal, 7.9. Hemoglobin and hematocrit 9.2 and 27.6 which is a drop of nearly 3 gm since admission. White count 15.1, platelet count 435,000. INR is 1.2. Legionella pneumonia antigen is negative. EKG done yesterday revealed sinus tachycardia at rate of 102, nonspecific Q wave changes. Previous chest x-ray revealed cardiomegaly, bilateral diffuse alveolar infiltrate, worse on the left side. Chest CT scan on 11/22/2017 revealed moderate pleural effusion, left lower lobe atelectasis, possibly secondary to pleural effusion, left upper lobe infiltrate versus atelectasis, abnormal soft tissue/low density in the left chest wall. Full evaluation of the left chest wall is not available on the basis of this exam due to patient's large body habitus. Compared to chest x-ray done on 11/16/2017, the bilateral alveolar infiltrate, left pleural effusion, and new opacification of the left lung is a new finding. Echocardiographic study performed on 10/26 revealed ejection fraction in the range of 55% to 60%, borderline pulmonary hypertension and normal diastolic dysfunction. ASSESSMENT: 1. Bilateral pneumonia with significant left pleural effusion. 2. Hypertensive heart disease. 3. Morbid obesity. RECOMMENDATIONS: Continue current IV vancomycin, IV Zosyn, and subcutaneous Lovenox. Continue Lasix 40 mg subcutaneously daily. Repeat chest CT scan without contrast as well as ABGs. Lazaro Omalley MD
[2017-11-29] MEDS: guaiFENesin DM 100 mg-10 mg/5 ml UD PO SCH ×4 (00:15→18:42)
[2017-11-29] MEDS: Piperacill/Tazo 3.375gm in Dex 3.375 GM/50 ML BAG IVPB SCH ×4 (01:01→19:41)
[2017-11-29] MEDS: Albuterol-Ipratrop 3 mg / 0.5 (3 ml) UD INH SCH ×3 (03:09→14:06)
[2017-11-29] MEDS: Fluticasone-Salmeterol 250-50mcg Diskus INH SCH (08:07)
[2017-11-29 08:50] LABS: BASO # 0.1 K/uL (0.0-0.2); BASO % 0.9 % (0.0-2.0); EOS # 0.2 K/uL (0.0-0.7); EOS % 1.3 % (0.0-4.0); HEMOGLOBIN 8.6 g/dL (12.0-18.0); LYMPH # 2.1 K/uL (1.0-4.3); LYMPH % 17.1 % (20.0-40.0); MEAN CELL VOLUME 80.8 fL (80.0-94.0); MEAN CORPUSCULAR HGB CONC 33.4 g/dL (33.0-37.0); MEAN PLATELET VOLUME 7.4 fL (7.2-11.7); MONO # 1.5 K/uL (0.0-0.8); MONO % 12.2 % (0.0-10.0); NEUT # 8.4 K/uL (1.8-7.0); NEUT % 68.5 % (50.0-75.0); RBC 3.18 Mil/uL (4.40-5.90); RED CELL DISTRIBUTION WIDTH 16.2 % (11.5-14.5); WHITE BLOOD COUNT 12.2 K/uL (4.8-10.8)
[2017-11-29 09:05] LABS: ALBUMIN 3.1 g/dL (3.5-5.0); ALT/SGPT 29 U/L (21-72); AST/SGOT 20 U/L (17-59); BLOOD UREA NITROGEN 12 mg/dL (9-20); CALCIUM 7.8 mg/dl (8.6-10.4); GFR AFRICAN-AMERICAN > 60; GFR NON-AFRICAN AMERICAN > 60
--- NOTE | 2017-11-29 10:48 | US ---
PROCEDURE: Date of procedure: 11/28/2017 Procedure: 1. Ultrasound-guided left thoracentesis, CPT 88590 Medications: 8cc 1% Lidocaine HISTORY: Left pleural effusion, pneumonia TECHNIQUE: Following informed consent ,the Patients' left chest was marked. Procedure time-out was called, and the patient was placed in the sitting position and limited ultrasound showed a small left effusion. The patient's left back was prepped and draped in the usual sterile fashion. After the skin was anesthetized with lidocaine, a drainage catheter was advanced under ultrasound guidance into the pleural space. Ultrasound-guided thoracentesis was performed. A total of 60 cubic centimeters of serosanguinous fluid removed without complication. A Xeroform dressing was applied. IMPRESSION: Ultrasound guided left thoracentesis. There were no immediate complications.
--- NOTE | 2017-11-29 11:11 | CP.PCM.PN ---
Subjective - Date & Time of Evaluation Date of Evaluation: 11/29/17 Time of Evaluation: 11:08 - Subjective Subjective: Progress Note for Dr. Todd's Service Pt seen and examined at bedside. He is seated in the chair. Pt continues to complain of left lower costal/LUQ pain that is associated with coughing in the interior lateral aspect of the rib cage on the left. A large left sided pleural effusion was identified on CXR yesterday and the patient will be going for a chest tube today with gen surg. He denies fevers and chills. Objective - Vital Signs/Intake and Output Vital Signs (last 24 hours): Temp Pulse Resp BP Pulse Ox 98.4 F 80 20 138/70 97 11/29/17 08:58 11/29/17 08:58 11/29/17 08:58 11/29/17 08:58 11/29/17 08:58 Intake and Output: 11/29/17 11/29/17 06:59 18:59 Intake Total 320 Output Total 400 Balance -80 - Medications Medications: Current Medications Albuterol (Ventolin Hfa 90 Mcg/Actuation (8 G)) 2 puff IH RQ6 PRN PRN Reason: SOB Last Admin: 11/18/17 08:19 Dose: 2 puff Albuterol/Ipratropium (Duoneb 3 Mg/0.5 Mg (3 Ml) Ud) 3 ml INH RQ6 [facility] Last Admin: 11/29/17 08:07 Dose: 3 ml Aspirin (Ecotrin) 81 mg PO DAILY [facility] Last Admin: 11/28/17 10:49 Dose: 81 mg Enoxaparin Sodium (Lovenox) 40 mg SC DAILY [facility] Last Admin: 11/28/17 10:50 Dose: 40 mg Furosemide (Lasix) 40 mg IVP DAILY [facility] Last Admin: 11/28/17 10:49 Dose: 40 mg Guaifenesin/Dextromethorphan (Robitussin Dm) 15 ml PO Q6H [facility] Last Admin: 11/29/17 06:15 Dose: 15 ml Vancomycin HCl 1,250 mg/ (Sodium Chloride) 250 mls @ 166.6 mls/hr IVPB Q12H [facility] Last Admin: 11/29/17 03:13 Dose: 166.6 mls/hr Azithromycin 500 mg/ Sodium (Chloride) 250 mls @ 167 mls/hr IVPB Q24H [facility] PRN Reason: Protocol Last Admin: 11/28/17 22:31 Dose: 167 mls/hr Piperacillin Sod/Tazobactam Sod (Zosyn 3.375 Gm Iv Premix) 3.375 gm in 50 mls @ 100 mls/hr IVPB Q8H [facility] PRN Reason: Protocol Last Admin: 11/29/17 10:44 Dose: Not Given Losartan Potassium (Cozaar) 50 mg PO DAILY [facility] Last Admin: 11/28/17 10:50 Dose: Not Given Metformin HCl (Glucophage Xr) 500 mg PO HS [facility] Last Admin: 11/28/17 21:44 Dose: 500 mg Metoprolol Tartrate (Lopressor) 25 mg PO BID [facility] Last Admin: 11/28/17 17:52 Dose: 25 mg Pantoprazole Sodium (Protonix Ec Tab) 40 mg PO DAILY [facility] Last Admin: 11/28/17 10:41 Dose: 40 mg Fluticasone/Salmeterol (Advair Diskus 250/50) 1 puff INH RQ12 [facility] Last Admin: 11/29/17 08:07 Dose: 1 puff Senna/Docusate Sodium (Senokot S 50 Mg-8.6 Mg) 1 tab PO BID [facility] Last Admin: 11/28/17 17:52 Dose: 1 tab - Labs Labs: 11/29/17 08:39 11/29/17 08:39 PT 13.8 SECONDS (9.7-12.2) H 11/24/17 11:19 INR 1.2 11/24/17 11:19 - Constitutional Appears: Other (obese; +discomfort) - Head Exam Head Exam: ATRAUMATIC, NORMOCEPHALIC - Eye Exam Eye Exam: EOMI, Normal appearance - ENT Exam ENT Exam: Mucous Membranes Moist - Respiratory Exam Additional comments: decreased breath sounds L>R pain with deep inspiration - Cardiovascular Exam Cardiovascular Exam: REGULAR RHYTHM - GI/Abdominal Exam GI & Abdominal Exam: Soft, Tenderness (LUQ), Mass (LUQ) - Neurological Exam Neurological Exam: Alert, Awake, Oriented x3 - Skin Skin Exam: Dry, Warm Assessment and Plan - Assessment and Plan (Free Text) Plan: Abdominal wall cellulitis 11/28- patient is currently s/p IR intervention and awaiting results for the collected specimen. He continues to have tenderness along the left upper abdomen. Consult placed to ID- Dr. Pete severino appreciated. -continue IV zosyn 3.375g IV q8hrs, vanc 1.250 g IV BID, Azithro 500mg IV daily. -maintain vanc level 10-20 Consult placed gen surg- Dr. Catherine severino appreciated - cont warm compresses - no drainable collection at this time - currently no surgical intervention needed Abd/Pelv CT w/IV contrast - Extensive fluid in the left lateral abdominal wall subcutaneous fat. This is of uncertain etiology, but could be due to recent trauma, i.e., represent resolving subcutaneous hemorrhage. Soft tissue infection is not excluded. No soft tissue gas or abscess is seen, but note that the left abdominal wall soft tissues are not completely included on the scan. - Small to moderate left pleural effusion. - See full report. Blood cultures negative x 5 days Pleural Effusion Consult placed to IR Dr. Anai severino appreciated s/p thoracentesis 11/24/17-> 60cc serosanguinous fluid removed f/u pleural fluid analysis Chest CT 11/22/17 - L pleural effusion, LLL atelectasis, see full report. CXR 11/28/17- large left pleural effusion with compressive atelectasis Pleural ultrasound 11/28/17- confirmation of mod-large left pleural effusion from CXR. Consult placed to Gen surg- Dr. Catherine severino appreciated Chest tube placement today in OR with gen surg AFB- negative x2 Quant gold- negative Mycobacterium cx- pending mycoplasma- negative L. pneumophila- negative Sputum gram stain- few g+ cocci in clusters (final) Lasix 40mg IV daily Bronchitis Consult placed to ID- Dr. Pete severino appreciated. -continue IV zosyn 3.375g IV q8hrs, vanc 1.250 g IV BID, Azithro 500mg IV daily. -maintain vanc level 10-20 Ventolin inhaler 2p q6hrs Duonebs q6hrs Robitussin DM 15mL PO q6hrs Advair diskus 1 puff q 12. Sputum culture negative. HTN;chronic Losartan 50mg PO daily Metorprolol tar 25mg PO BID Pulmonary htn -pt has borderline pulmonary hypertension. -pulm consult- recs appreciated. Morbid obesity -outpatient management upon discharge with bariatrics Prediabetes HGB a1c 6.0 Metformin 500mg PO QHS Anemia Iron studies: Iron 38 TIBC 330 Ferritin 152 Stool occult negative Previously was given Ferrlecit however this has been discontinued- reasoning unclear Pt's hemoglobin has been trending down. Will order B12/folate for evaluation. supplemental iron vs transfusion vs heme consult for further evaluation with review of am labs. GI/DVT ppx SCDs Lovenox daily- held for procedure Protonix 40mg PO daily ASA 81mg PO daily Case discussed with Dr. Todd All management as per Dr. Leonides Todd
--- NOTE | 2017-11-29 11:12 | RAD ---
Chest, one view Indication: Verify right PICC Comparison: Findings: Examination limited by habitus. Right-sided PICC extends the expected location of the cavoatrial junction, limited visualization. The cardiomediastinal silhouette partially obscured. Complete opacification of the left sam thorax. Mediastinal shift to the right. Suspect mild right basilar atelectasis or effusion versus soft tissue attenuation at the costophrenic angle. No definite pneumothorax. Degenerative changes of the spine. Impression: Right-sided PICC extends the expected location of the cavoatrial junction, limited visualization. Complete opacification of the left sam thorax. Mediastinal shift to the right. Suspect mild right basilar atelectasis or effusion versus soft tissue attenuation at the costophrenic angle.
[2017-11-29] MEDS: Pantoprazole 40 mg EC Tab PO SCH (11:31)
[2017-11-29] MEDS: Docusate-Senna 50 mg-8.6 mg Tab PO SCH ×2 (11:31→19:44)
[2017-11-29] MEDS ORDERED: Lidocaine/Epinephrine 1% 1:100000 10 ML IJ ONE ×2 (12:09→13:06)
[2017-11-29] MEDS ORDERED: Bupivacaine HCl 0.25% PF (10 ml) Inj ONE ×3 (12:09→13:06)
--- NOTE | 2017-11-29 12:29 | CARD ---
APPROVED REPORT EKG Measurement Heart [id number] <Conclusion> Sinus tachycardia Nonspecific T wave abnormality Abnormal ECG
[2017-11-29] MEDS ORDERED: Ketamine 50 mg/ml Inj (10 ml) ONE (12:36)
[2017-11-29] MEDS ORDERED: Midazolam 2 MG/2 ML VIAL ONE ×2 (12:37→12:58)
[2017-11-29] MEDS ORDERED: HYDROmorphone 0.5 mg/0.5 ml ISec IVP PRN (13:54)
--- NOTE | 2017-11-29 14:16 | PCM.SURG1 ---
Surgeon's Initial Post Op Note - Surgeon's Notes Surgeon: Dr. New Die Barber: Dr. Iniguez PGY-3 Type of Anesthesia: IV Sedation, Local Anesthesia Administered By: Dr. Merritt Pre-Operative Diagnosis: Left Pleural Effusion Operative Findings: About 4.5-5L of bloody pleural fluid drained. Sent for cytology. Post-Operative Diagnosis: Same Operation Performed: Left chest tube insertion Specimen/Specimens Removed: none Estimated Blood Loss: EBL {In ML}: 10 Blood Products Given: PRBC Drains Used: Chest Tubes Post-Op Condition: Good Date of Surgery/Procedure: 11/29/17 Time of Surgery/Procedure: 14:16
--- NOTE | 2017-11-29 14:31 | CP.PCM.CON ---
<Jessica Brown - Last Filed: 11/29/17 16:04> History of Present Illness - History of Present Illness History of Present Illness: ICU consult note: Patient is a 42 year old male with past medical history of HTN , morbid obesity, IGT, bronchitis who presented to the ER on 11/14 initially with the complaint of abdominal pain and swelling in the left abdominal area. He was being treated for ANGE pneumonia and left abdominal wall cellulitis. On 11/24 patient underwent US guided thoracentesis with removal of 60cc of serosanguinous fluid. While on the floors, CXR on 11/28 showed large left pleural effusion. CXR was followed by CT chest which showed increasing left pleural effusion, complete collapse secondary to the effusion, compressive atelectasis affecting entire left lung. Patient went to the OR today for chest tube placement. 4.5-5L of bloody pleural fluid was drained and sent for cytology. ICU was consulted to evaluate the patient post chest tube placement for closer monitoring. At this time, patient states that breathing has improved mildly. Currently offers no complaints. Allergies: NKDA Medications: Cozaar 50mg PO daily, Albuterol prn, Advair 1 puff Q12H Medical Hx: Morbid Obesity, HTN, bronchitis, IGT Social Hx: smokes 1/2 pk daily, admits to occasional ETOH and marijuana use Surgical Hx: Denies Family Hx: Denies Past Patient History - Infectious Disease Hx of Infectious Diseases: None - Past Medical History & Family History Past Medical History?: No - Past Social History Smoking Status: Light Smoker < 10 Cigarettes Daily - CARDIAC Hx Hypertension: Yes - ENDOCRINE/METABOLIC Other/Comment: Obesity as per patient - MUSCULOSKELETAL/RHEUMATOLOGICAL Hx Falls: No - PSYCHIATRIC Hx Depression: Yes Hx Substance Use: Yes - SURGICAL HISTORY Hx Surgeries: No - ANESTHESIA Hx Anesthesia: No Hx Anesthesia Reactions: No Hx Malignant Hyperthermia: No Meds Home Medications: Home Medication List Medication Instructions Recorded Confirmed Type Amoxicillin/Clavulanate [Augmentin 1 tab PO Q12 #20 tab 11/21/17 Rx 875 MG-125 MG] Saccharomyces Boulardi [Florastor] 250 mg PO Q12 #20 cap 11/21/17 Rx Allergies/Adverse Reactions: Allergies Allergy/AdvReac Type Severity Reaction Status Date / Time No Known Allergies Allergy Verified 11/14/17 19:09 - Medications Medications: Current Medications Albuterol (Ventolin Hfa 90 Mcg/Actuation (8 G)) 2 puff IH RQ6 PRN PRN Reason: SOB Last Admin: 11/18/17 08:19 Dose: 2 puff Albuterol/Ipratropium (Duoneb 3 Mg/0.5 Mg (3 Ml) Ud) 3 ml INH RQ6 [facility] Last Admin: 11/29/17 14:06 Dose: Not Given Aspirin (Ecotrin) 81 mg PO DAILY [facility] Last Admin: 11/29/17 11:31 Dose: 81 mg Enoxaparin Sodium (Lovenox) 40 mg SC DAILY [facility] Last Admin: 11/28/17 10:50 Dose: 40 mg Furosemide (Lasix) 40 mg IVP DAILY [facility] Last Admin: 11/29/17 11:18 Dose: Not Given Guaifenesin/Dextromethorphan (Robitussin Dm) 15 ml PO Q6H [facility] Last Admin: 11/29/17 11:32 Dose: 15 ml Hydromorphone HCl (Dilaudid) 0.5 mg IVP Q15M PRN PRN Reason: Pain, moderate (4-7) Stop: 11/29/17 15:54 Vancomycin HCl 1,250 mg/ (Sodium Chloride) 250 mls @ 166.6 mls/hr IVPB Q12H [facility] Last Admin: 11/29/17 03:13 Dose: 166.6 mls/hr Azithromycin 500 mg/ Sodium (Chloride) 250 mls @ 167 mls/hr IVPB Q24H [facility] PRN Reason: Protocol Last Admin: 11/28/17 22:31 Dose: 167 mls/hr Piperacillin Sod/Tazobactam Sod (Zosyn 3.375 Gm Iv Premix) 3.375 gm in 50 mls @ 100 mls/hr IVPB Q8H [facility] PRN Reason: Protocol Last Admin: 11/29/17 12:57 Dose: 50 mls Losartan Potassium (Cozaar) 50 mg PO DAILY [facility] Last Admin: 11/29/17 11:32 Dose: 50 mg Metformin HCl (Glucophage Xr) 500 mg PO HS [facility] Last Admin: 11/28/17 21:44 Dose: 500 mg Metoprolol Tartrate (Lopressor) 25 mg PO BID [facility] Last Admin: 11/29/17 11:31 Dose: 25 mg Morphine Sulfate (Morphine) 4 mg IVP Q4 PRN PRN Reason: Pain, moderate (4-7) Pantoprazole Sodium (Protonix Ec Tab) 40 mg PO DAILY [facility] Last Admin: 11/29/17 11:31 Dose: 40 mg Fluticasone/Salmeterol (Advair Diskus 250/50) 1 puff INH RQ12 [facility] Last Admin: 11/29/17 08:07 Dose: 1 puff Senna/Docusate Sodium (Senokot S 50 Mg-8.6 Mg) 1 tab PO BID [facility] Last Admin: 11/29/17 11:31 Dose: 1 tab Physical Exam - Additional Findings Additional findings: - Constitutional Appears: Other (obese; +discomfort) - Head Exam Head Exam: ATRAUMATIC, NORMOCEPHALIC - Eye Exam Eye Exam: EOMI, Normal appearance - ENT Exam ENT Exam: Mucous Membranes Moist - Respiratory Exam Additional comments: decreased breath sounds L>R pain with deep inspiration - Cardiovascular Exam Cardiovascular Exam: REGULAR RHYTHM - GI/Abdominal Exam GI & Abdominal Exam: Soft, Tenderness (LUQ), no peritoneal signs, obese abdomen - Neurological Exam Neurological Exam: Alert, Awake, Oriented x3 - Skin Skin Exam: Dry, Warm Results - Vital Signs Recent Vital Signs: Last Vital Signs Temp 98.4 F 11/29/17 08:58 Pulse 116 H 11/29/17 11:37 Resp 20 11/29/17 08:58 BP 132/76 11/29/17 11:31 Pulse Ox 97 11/29/17 08:58 - Labs Result Diagrams: 11/29/17 14:41 11/29/17 08:39 Labs: Laboratory Results - last 24 hr 11/28/17 11/28/17 11/28/17 14:02 15:40 16:38 WBC RBC Hgb Hct MCV MCH MCHC RDW Plt Count MPV Neut % (Auto) Lymph % (Auto) Dunn % (Auto) Eos % (Auto) Baso % (Auto) Neut # (Auto) Lymph # (Auto) Dunn # (Auto) Eos # (Auto) Baso # (Auto) Puncture Site Rradial pCO2 42 pO2 51 L HCO3 27.9 ABG pH 7.44 ABG Total CO2 29.8 H ABG O2 Saturation 91.0 L ABG Base Excess 4.0 H ABG Hemoglobin 8.7 L ABG Carboxyhemoglobin 2.8 H POC ABG HHb (Measured) 8.6 H ABG Methemoglobin 1.7 Ramesh Test Pos A-a O2 Difference 46.0 Respiratory Index 0.9 Hgb O2 Saturation 86.9 L FiO2 21.0 Sodium Potassium Chloride Carbon Dioxide Anion Gap BUN Creatinine Est GFR ( Amer) Est GFR (Non-Af Amer) POC Glucose (mg/dL) 97 Random Glucose Calcium Phosphorus Magnesium Total Bilirubin AST ALT Alkaline Phosphatase Total Protein Albumin Globulin Albumin/Globulin Ratio Vancomycin Trough 8.0 Blood Type 11/28/17 11/29/17 11/29/17 21:51 06:17 08:39 WBC 12.2 H RBC 3.18 L Hgb 8.6 L Hct 25.7 L MCV 80.8 MCH 27.0 MCHC 33.4 RDW 16.2 H Plt Count 388 MPV 7.4 Neut % (Auto) 68.5 Lymph % (Auto) 17.1 L Dunn % (Auto) 12.2 H Eos % (Auto) 1.3 Baso % (Auto) 0.9 Neut # (Auto) 8.4 H Lymph # (Auto) 2.1 Dunn # (Auto) 1.5 H Eos # (Auto) 0.2 Baso # (Auto) 0.1 Puncture Site pCO2 pO2 HCO3 ABG pH ABG Total CO2 ABG O2 Saturation ABG Base Excess ABG Hemoglobin ABG Carboxyhemoglobin POC ABG HHb (Measured) ABG Methemoglobin Ramesh Test A-a O2 Difference Respiratory Index Hgb O2 Saturation FiO2 Sodium Potassium Chloride Carbon Dioxide Anion Gap BUN Creatinine Est GFR ( Amer) Est GFR (Non-Af Amer) POC Glucose (mg/dL) 122 H 106 Random Glucose Calcium Phosphorus Magnesium Total Bilirubin AST ALT Alkaline Phosphatase Total Protein Albumin Globulin Albumin/Globulin Ratio Vancomycin Trough Blood Type 11/29/17 11/29/17 11/29/17 08:39 11:41 14:00 WBC RBC Hgb Hct MCV MCH MCHC RDW Plt Count MPV Neut % (Auto) Lymph % (Auto) Dunn % (Auto) Eos % (Auto) Baso % (Auto) Neut # (Auto) Lymph # (Auto) Dunn # (Auto) Eos # (Auto) Baso # (Auto) Puncture Site pCO2 pO2 HCO3 ABG pH ABG Total CO2 ABG O2 Saturation ABG Base Excess ABG Hemoglobin ABG Carboxyhemoglobin POC ABG HHb (Measured) ABG Methemoglobin Ramesh Test A-a O2 Difference Respiratory Index Hgb O2 Saturation FiO2 Sodium 139 Potassium 3.9 Chloride 101 Carbon Dioxide 28 Anion Gap 13 BUN 12 Creatinine 1.1 Est GFR ( Amer) > 60 Est GFR (Non-Af Amer) > 60 POC Glucose (mg/dL) 112 H Random Glucose 106 Calcium 7.8 L Phosphorus 3.7 Magnesium 2.0 Total Bilirubin 0.3 AST 20 ALT 29 Alkaline Phosphatase 67 Total Protein 6.2 L Albumin 3.1 L Globulin 3.0 Albumin/Globulin Ratio 1.0 Vancomycin Trough Blood Type O POSITIVE Assessment & Plan - Assessment and Plan (Free Text) Assessment: Patient is a 42 year old male with past medical history of morbid obesity and TB presented with recurrent left sided pleural effusion, s/p chest tube placement in the OR where approximately 5 liters of bloody pleural fluid was drained. Now being admitted to the ICU for closer monitoring. Neurology: -Patient is a AAOx3 -Will monitor closely in the ICU at this time Cardiology: -Patient with a history of HTN -Will continue Cozaar 50mg po daily -Metoprolol 25mg PO BID -Continue aspirin 81mg PO daily Respiratory: -Patient on droplet precautions, TB work up in progress -Patient with left sided chest tube for recurrent pleural effusion -4.5-5L of bloody pleural fluid drained -Post procedure CXR ordered, ABG ordered -Continue Lasix 40mg IVP Q12 -Robitussin 15ml Q6H for cough -Morphine 4mg Q4H prn pain -Duonebs Q6H [facility], Continue Advair 1 puff Q12H -CT surgeon Dr Elizabeth consulted, help appreciated Hematology -Pre-op Hgb 8.6 -Approximately 5L of bloody pleural fluid drained in the OR -Patient type and crossed -2 units of PRBCs ordered -F/U post transfusion CBC GI: -Continue Protonix 40mg PO daily Endocrine: -Patient with history of Impaired Glucose Tolerance -Hgba1c 6.0 -Continue Metformin 500mg QHS Infectious Disease: -Leukocytosis 12.2 at this time -Currently being treated for Pneumonia -Legionella and mycoplasma negative -TB workup in progress, continue air[place] precautions -Antibiotics: Azithromycin 500mg IV daily, Zosyn 3.375mg IV Q8H, Vancomycin 1250mg Q12H -Infectious Disease on consult, Dr Rome, help appreciated GI/DVT ppx: -Protonix 40mg PO daily -SCDs, Lovenox on hold at this time Plan discussed with Dr Fischer <Robert Fischer - Last Filed: 11/29/17 17:26> Meds - Medications Medications: Current Medications Albuterol (Ventolin Hfa 90 Mcg/Actuation (8 G)) 2 puff IH RQ6 PRN PRN Reason: SOB Last Admin: 11/18/17 08:19 Dose: 2 puff Albuterol/Ipratropium (Duoneb 3 Mg/0.5 Mg (3 Ml) Ud) 3 ml INH RQ6 [facility] Last Admin: 11/29/17 14:06 Dose: Not Given Aspirin (Ecotrin) 81 mg PO DAILY [facility] Last Admin: 11/29/17 11:31 Dose: 81 mg Enoxaparin Sodium (Lovenox) 40 mg SC DAILY [facility] Last Admin: 11/28/17 10:50 Dose: 40 mg Furosemide (Lasix) 40 mg IVP Q12 [facility] Guaifenesin/Dextromethorphan (Robitussin Dm) 15 ml PO Q6H [facility] Last Admin: 11/29/17 11:32 Dose: 15 ml Vancomycin HCl 1,250 mg/ (Sodium Chloride) 250 mls @ 166.6 mls/hr IVPB Q12H [facility] Last Admin: 11/29/17 03:13 Dose: 166.6 mls/hr Azithromycin 500 mg/ Sodium (Chloride) 250 mls @ 167 mls/hr IVPB Q24H [facility] PRN Reason: Protocol Last Admin: 11/28/17 22:31 Dose: 167 mls/hr Piperacillin Sod/Tazobactam Sod (Zosyn 3.375 Gm Iv Premix) 3.375 gm in 50 mls @ 100 mls/hr IVPB Q8H [facility] PRN Reason: Protocol Last Admin: 11/29/17 12:57 Dose: 50 mls Losartan Potassium (Cozaar) 50 mg PO DAILY [facility] Last Admin: 11/29/17 11:32 Dose: 50 mg Metformin HCl (Glucophage Xr) 500 mg PO HS [facility] Last Admin: 11/28/17 21:44 Dose: 500 mg Metoprolol Tartrate (Lopressor) 25 mg PO BID [facility] Last Admin: 11/29/17 11:31 Dose: 25 mg Morphine Sulfate (Morphine) 4 mg IVP Q4 PRN PRN Reason: Pain, moderate (4-7) Pantoprazole Sodium (Protonix Ec Tab) 40 mg PO DAILY [facility] Last Admin: 11/29/17 11:31 Dose: 40 mg Fluticasone/Salmeterol (Advair Diskus 250/50) 1 puff INH RQ12 [facility] Last Admin: 11/29/17 08:07 Dose: 1 puff Senna/Docusate Sodium (Senokot S 50 Mg-8.6 Mg) 1 tab PO BID [facility] Last Admin: 11/29/17 11:31 Dose: 1 tab Results - Vital Signs Recent Vital Signs: Last Vital Signs Temp 100 F H 11/29/17 13:57 Pulse 103 H 11/29/17 13:57 Resp 22 11/29/17 13:57 BP 126/47 L 11/29/17 13:57 Pulse Ox 100 11/29/17 13:57 - Labs Result Diagrams: 11/29/17 14:41 11/29/17 08:39 Labs: Laboratory Results - last 24 hr 11/28/17 11/28/17 11/29/17 16:38 21:51 06:17 WBC RBC Hgb Hct MCV MCH MCHC RDW Plt Count MPV Neut % (Auto) Lymph % (Auto) Dunn % (Auto) Eos % (Auto) Baso % (Auto) Neut # (Auto) Lymph # (Auto) Dunn # (Auto) Eos # (Auto) Baso # (Auto) PT INR APTT Puncture Site pCO2 pO2 HCO3 ABG pH ABG Total CO2 ABG O2 Saturation ABG Base Excess ABG Hemoglobin ABG Carboxyhemoglobin POC ABG HHb (Measured) ABG Methemoglobin Ramesh Test A-a O2 Difference Respiratory Index Hgb O2 Saturation Liter Flow FiO2 Sodium Potassium Chloride Carbon Dioxide Anion Gap BUN Creatinine Est GFR ( Amer) Est GFR (Non-Af Amer) POC Glucose (mg/dL) 97 122 H 106 Random Glucose Calcium Phosphorus Magnesium Total Bilirubin AST ALT Alkaline Phosphatase Total Protein Albumin Globulin Albumin/Globulin Ratio Blood Type Antibody Screen 11/29/17 11/29/17 11/29/17 08:39 08:39 11:41 WBC 12.2 H RBC 3.18 L Hgb 8.6 L Hct 25.7 L MCV 80.8 MCH 27.0 MCHC 33.4 RDW 16.2 H Plt Count 388 MPV 7.4 Neut % (Auto) 68.5 Lymph % (Auto) 17.1 L Dunn % (Auto) 12.2 H Eos % (Auto) 1.3 Baso % (Auto) 0.9 Neut # (Auto) 8.4 H Lymph # (Auto) 2.1 Dunn # (Auto) 1.5 H Eos # (Auto) 0.2 Baso # (Auto) 0.1 PT INR APTT Puncture Site pCO2 pO2 HCO3 ABG pH ABG Total CO2 ABG O2 Saturation ABG Base Excess ABG Hemoglobin ABG Carboxyhemoglobin POC ABG HHb (Measured) ABG Methemoglobin Ramesh Test A-a O2 Difference Respiratory Index Hgb O2 Saturation Liter Flow FiO2 Sodium 139 Potassium 3.9 Chloride 101 Carbon Dioxide 28 Anion Gap 13 BUN 12 Creatinine 1.1 Est GFR ( Amer) > 60 Est GFR (Non-Af Amer) > 60 POC Glucose (mg/dL) 112 H Random Glucose 106 Calcium 7.8 L Phosphorus 3.7 Magnesium 2.0 Total Bilirubin 0.3 AST 20 ALT 29 Alkaline Phosphatase 67 Total Protein 6.2 L Albumin 3.1 L Globulin 3.0 Albumin/Globulin Ratio 1.0 Blood Type Antibody Screen 11/29/17 11/29/17 11/29/17 14:00 14:41 14:41 WBC 15.7 H RBC 3.31 L Hgb 8.8 L Hct 26.8 L MCV 81.0 MCH 26.6 L MCHC 32.9 L RDW 16.6 H Plt Count 390 MPV 7.3 Neut % (Auto) Lymph % (Auto) Dunn % (Auto) Eos % (Auto) Baso % (Auto) Neut # (Auto) Lymph # (Auto) Dunn # (Auto) Eos # (Auto) Baso # (Auto) PT 14.2 H INR 1.3 APTT 19 L Puncture Site pCO2 pO2 HCO3 ABG pH ABG Total CO2 ABG O2 Saturation ABG Base Excess ABG Hemoglobin ABG Carboxyhemoglobin POC ABG HHb (Measured) ABG Methemoglobin Ramesh Test A-a O2 Difference Respiratory Index Hgb O2 Saturation Liter Flow FiO2 Sodium Potassium Chloride Carbon Dioxide Anion Gap BUN Creatinine Est GFR ( Amer) Est GFR (Non-Af Amer) POC Glucose (mg/dL) Random Glucose Calcium Phosphorus Magnesium Total Bilirubin AST ALT Alkaline Phosphatase Total Protein Albumin Globulin Albumin/Globulin Ratio Blood Type O POSITIVE Antibody Screen Negative 11/29/17 14:51 WBC RBC Hgb Hct MCV MCH MCHC RDW Plt Count MPV Neut % (Auto) Lymph % (Auto) Dunn % (Auto) Eos % (Auto) Baso % (Auto) Neut # (Auto) Lymph # (Auto) Dunn # (Auto) Eos # (Auto) Baso # (Auto) PT INR APTT Puncture Site Rra pCO2 48 H pO2 60 L HCO3 27.0 ABG pH 7.38 ABG Total CO2 29.9 H ABG O2 Saturation 94.6 L ABG Base Excess 2.8 ABG Hemoglobin 8.9 L ABG Carboxyhemoglobin 2.6 H POC ABG HHb (Measured) 5.2 H ABG Methemoglobin 1.1 Ramesh Test Po A-a O2 Difference 593.0 Respiratory Index 9.9 Hgb O2 Saturation 91.1 L Liter Flow 12.0 FiO2 100.0 Sodium Potassium Chloride Carbon Dioxide Anion Gap BUN Creatinine Est GFR ( Amer) Est GFR (Non-Af Amer) POC Glucose (mg/dL) Random Glucose Calcium Phosphorus Magnesium Total Bilirubin AST ALT Alkaline Phosphatase Total Protein Albumin Globulin Albumin/Globulin Ratio Blood Type Antibody Screen Attending/Attestation - Attestation I have personally seen and examined this patient.: Yes I have fully participated in the care of the patient.: Yes I have reviewed all pertinent clinical information: Yes Notes (Text): 11/29/17 17:22 patient seen and examined 42-year-old male with morbid obesity transferred to ICU post chest tube insertion for large left pleural effusion. 4.5-5 L off blood-tinged fluid removed. Patient on nonrebreather mask Fluid analysis Continue antibiotics Continue ICU monitoring BiPAP if needed
[2017-11-29 14:48] LABS: HEMOGLOBIN 8.8 g/dL (12.0-18.0); MEAN CORPUSCULAR HEMOGLOBIN 26.6 pg (27.0-31.0); MEAN CORPUSCULAR HGB CONC 32.9 g/dL (33.0-37.0); MEAN PLATELET VOLUME 7.3 fL (7.2-11.7); RBC 3.31 Mil/uL (4.40-5.90); RED CELL DISTRIBUTION WIDTH 16.6 % (11.5-14.5); WHITE BLOOD COUNT 15.7 K/uL (4.8-10.8)
[2017-11-29 14:54] LABS: ABG ALLEN TEST PO; ARTERIAL BLOOD GAS HEMOGLOBIN 8.9 g/dL (11.7-17.4); ARTERIAL BLOOD GAS O2 SAT 94.6 % (95-98); ARTERIAL BLOOD GAS PCO2 48 mm/Hg (35-45); ARTERIAL BLOOD GAS PH 7.38 (7.35-7.45); ARTERIAL BLOOD GAS PO2 60 mm/Hg (80-100); ARTERIAL BLOOD GAS TCO2 29.9 mmol/L (22-28)
--- NOTE | 2017-11-29 14:54 | RAD ---
Chest, one view Indication: Status post chest tube insertion Comparison: Chest x-ray performed earlier the same day. Findings: Examination limited by habitus and patient obliquity. The cardiomediastinal silhouette is obscured. Interval placement of left-sided chest tube. Complete opacification of the left sam thorax. Moderate interstitial edema or infection on the right. Please note that chest x-ray has limited sensitivity for the detection of pulmonary masses. Degenerative changes of the spine. Impression: Interval placement of left-sided chest tube. Complete opacification of the left sam thorax. Moderate interstitial edema or infection on the right.
[2017-11-29 14:56] LABS: INR 1.3; PROTHROMBIN TIME 14.2 SECONDS (9.7-12.2)
[2017-11-29] MEDS ORDERED: Sodium Chloride 0.9% 1,000 ML IV ONE (15:30)
--- NOTE | 2017-11-29 15:43 | CP.PCM.CON ---
History of Present Illness - History of Present Illness History of Present Illness: CT Surgery: Dr. Elizabeth Pt is a 42M with left sided pleural effusion who was taken to OR today by Dr. New for chest tube insertion due to difficult body habitus. In the OR about 4.5-5L of bloody fluid was drained from the chest. Pt remained hemodynamically stable throughout the case with no drop in blood pressure. After the chest tube was clamped in the OR for a few minutes, the output slowed down and pt was transferred to PACU in stable condition. Cardiothoracic consult called to evaluate for large hemothorax as well as any continued bleeding that may require further surgical intervention. Currently, pt is resting comfortably in the PACU. Chest tube with 90cc of sanguinous output, no air leak. Admits to pain at CT insertion site but denies SOB. Denies other complaints at this time. Review of Systems - Review of Systems All systems: reviewed and no additional remarkable complaints except (as per HPI ) Past Patient History - Infectious Disease Hx of Infectious Diseases: None - Past Medical History & Family History Past Medical History?: No - Past Social History Smoking Status: Light Smoker < 10 Cigarettes Daily - CARDIAC Hx Hypertension: Yes - ENDOCRINE/METABOLIC Other/Comment: Obesity as per patient - MUSCULOSKELETAL/RHEUMATOLOGICAL Hx Falls: No - PSYCHIATRIC Hx Depression: Yes Hx Substance Use: Yes - SURGICAL HISTORY Hx Surgeries: No - ANESTHESIA Hx Anesthesia: No Hx Anesthesia Reactions: No Hx Malignant Hyperthermia: No Meds Home Medications: Home Medication List Medication Instructions Recorded Confirmed Type Amoxicillin/Clavulanate [Augmentin 1 tab PO Q12 #20 tab 11/21/17 Rx 875 MG-125 MG] Saccharomyces Boulardi [Florastor] 250 mg PO Q12 #20 cap 11/21/17 Rx Allergies/Adverse Reactions: Allergies Allergy/AdvReac Type Severity Reaction Status Date / Time No Known Allergies Allergy Verified 11/14/17 19:09 - Medications Medications: Current Medications Albuterol (Ventolin Hfa 90 Mcg/Actuation (8 G)) 2 puff IH RQ6 PRN PRN Reason: SOB Last Admin: 11/18/17 08:19 Dose: 2 puff Albuterol/Ipratropium (Duoneb 3 Mg/0.5 Mg (3 Ml) Ud) 3 ml INH RQ6 [facility] Last Admin: 11/29/17 14:06 Dose: Not Given Aspirin (Ecotrin) 81 mg PO DAILY [facility] Last Admin: 11/29/17 11:31 Dose: 81 mg Enoxaparin Sodium (Lovenox) 40 mg SC DAILY [facility] Last Admin: 11/28/17 10:50 Dose: 40 mg Furosemide (Lasix) 40 mg IVP DAILY [facility] Last Admin: 11/29/17 11:18 Dose: Not Given Guaifenesin/Dextromethorphan (Robitussin Dm) 15 ml PO Q6H [facility] Last Admin: 11/29/17 11:32 Dose: 15 ml Hydromorphone HCl (Dilaudid) 0.5 mg IVP Q15M PRN PRN Reason: Pain, moderate (4-7) Stop: 11/29/17 15:54 Vancomycin HCl 1,250 mg/ (Sodium Chloride) 250 mls @ 166.6 mls/hr IVPB Q12H [facility] Last Admin: 11/29/17 03:13 Dose: 166.6 mls/hr Azithromycin 500 mg/ Sodium (Chloride) 250 mls @ 167 mls/hr IVPB Q24H [facility] PRN Reason: Protocol Last Admin: 11/28/17 22:31 Dose: 167 mls/hr Piperacillin Sod/Tazobactam Sod (Zosyn 3.375 Gm Iv Premix) 3.375 gm in 50 mls @ 100 mls/hr IVPB Q8H [facility] PRN Reason: Protocol Last Admin: 11/29/17 12:57 Dose: 50 mls Losartan Potassium (Cozaar) 50 mg PO DAILY [facility] Last Admin: 11/29/17 11:32 Dose: 50 mg Metformin HCl (Glucophage Xr) 500 mg PO HS [facility] Last Admin: 11/28/17 21:44 Dose: 500 mg Metoprolol Tartrate (Lopressor) 25 mg PO BID [facility] Last Admin: 11/29/17 11:31 Dose: 25 mg Morphine Sulfate (Morphine) 4 mg IVP Q4 PRN PRN Reason: Pain, moderate (4-7) Pantoprazole Sodium (Protonix Ec Tab) 40 mg PO DAILY [facility] Last Admin: 11/29/17 11:31 Dose: 40 mg Fluticasone/Salmeterol (Advair Diskus 250/50) 1 puff INH RQ12 [facility] Last Admin: 11/29/17 08:07 Dose: 1 puff Senna/Docusate Sodium (Senokot S 50 Mg-8.6 Mg) 1 tab PO BID [facility] Last Admin: 11/29/17 11:31 Dose: 1 tab Physical Exam - Constitutional Appears: No Acute Distress - Head Exam Head Exam: ATRAUMATIC, NORMOCEPHALIC - ENT Exam ENT Exam: Mucous Membranes Moist - Respiratory Exam Respiratory Exam: NORMAL BREATHING PATTERN Additional comments: left CT in place - Cardiovascular Exam Cardiovascular Exam: Tachycardia - GI/Abdominal Exam GI & Abdominal Exam: Soft - Neurological Exam Neurological exam: Alert, Oriented x3 - Skin Skin Exam: Dry, Warm Results - Vital Signs Recent Vital Signs: Last Vital Signs Temp 98.4 F 11/29/17 08:58 Pulse 116 H 11/29/17 11:37 Resp 20 11/29/17 08:58 BP 132/76 11/29/17 11:31 Pulse Ox 97 11/29/17 08:58 - Labs Result Diagrams: 11/29/17 14:41 11/29/17 08:39 Labs: Laboratory Results - last 24 hr 11/28/17 11/28/17 11/28/17 15:40 16:38 21:51 WBC RBC Hgb Hct MCV MCH MCHC RDW Plt Count MPV Neut % (Auto) Lymph % (Auto) [place] % (Auto) Eos % (Auto) Baso % (Auto) Neut # (Auto) Lymph # (Auto) [place] # (Auto) Eos # (Auto) Baso # (Auto) PT INR APTT Puncture Site Rradial pCO2 42 pO2 51 L HCO3 27.9 ABG pH 7.44 ABG Total CO2 29.8 H ABG O2 Saturation 91.0 L ABG Base Excess 4.0 H ABG Hemoglobin 8.7 L ABG Carboxyhemoglobin 2.8 H POC ABG HHb (Measured) 8.6 H ABG Methemoglobin 1.7 Ramesh Test Pos A-a O2 Difference 46.0 Respiratory Index 0.9 Hgb O2 Saturation 86.9 L Liter Flow FiO2 21.0 Sodium Potassium Chloride Carbon Dioxide Anion Gap BUN Creatinine Est GFR ( Amer) Est GFR (Non-Af Amer) POC Glucose (mg/dL) 97 122 H Random Glucose Calcium Phosphorus Magnesium Total Bilirubin AST ALT Alkaline Phosphatase Total Protein Albumin Globulin Albumin/Globulin Ratio Blood Type Antibody Screen 11/29/17 11/29/17 11/29/17 06:17 08:39 08:39 WBC 12.2 H RBC 3.18 L Hgb 8.6 L Hct 25.7 L MCV 80.8 MCH 27.0 MCHC 33.4 RDW 16.2 H Plt Count 388 MPV 7.4 Neut % (Auto) 68.5 Lymph % (Auto) 17.1 L [place] % (Auto) 12.2 H Eos % (Auto) 1.3 Baso % (Auto) 0.9 Neut # (Auto) 8.4 H Lymph # (Auto) 2.1 [place] # (Auto) 1.5 H Eos # (Auto) 0.2 Baso # (Auto) 0.1 PT INR APTT Puncture Site pCO2 pO2 HCO3 ABG pH ABG Total CO2 ABG O2 Saturation ABG Base Excess ABG Hemoglobin ABG Carboxyhemoglobin POC ABG HHb (Measured) ABG Methemoglobin Ramesh Test A-a O2 Difference Respiratory Index Hgb O2 Saturation Liter Flow FiO2 Sodium 139 Potassium 3.9 Chloride 101 Carbon Dioxide 28 Anion Gap 13 BUN 12 Creatinine 1.1 Est GFR ( Amer) > 60 Est GFR (Non-Af Amer) > 60 POC Glucose (mg/dL) 106 Random Glucose 106 Calcium 7.8 L Phosphorus 3.7 Magnesium 2.0 Total Bilirubin 0.3 AST 20 ALT 29 Alkaline Phosphatase 67 Total Protein 6.2 L Albumin 3.1 L Globulin 3.0 Albumin/Globulin Ratio 1.0 Blood Type Antibody Screen 11/29/17 11/29/17 11/29/17 11:41 14:00 14:41 WBC 15.7 H RBC 3.31 L Hgb 8.8 L Hct 26.8 L MCV 81.0 MCH 26.6 L MCHC 32.9 L RDW 16.6 H Plt Count 390 MPV 7.3 Neut % (Auto) Lymph % (Auto) [place] % (Auto) Eos % (Auto) Baso % (Auto) Neut # (Auto) Lymph # (Auto) [place] # (Auto) Eos # (Auto) Baso # (Auto) PT INR APTT Puncture Site pCO2 pO2 HCO3 ABG pH ABG Total CO2 ABG O2 Saturation ABG Base Excess ABG Hemoglobin ABG Carboxyhemoglobin POC ABG HHb (Measured) ABG Methemoglobin Ramesh Test A-a O2 Difference Respiratory Index Hgb O2 Saturation Liter Flow FiO2 Sodium Potassium Chloride Carbon Dioxide Anion Gap BUN Creatinine Est GFR ( Amer) Est GFR (Non-Af Amer) POC Glucose (mg/dL) 112 H Random Glucose Calcium Phosphorus Magnesium Total Bilirubin AST ALT Alkaline Phosphatase Total Protein Albumin Globulin Albumin/Globulin Ratio Blood Type O POSITIVE Antibody Screen Negative 11/29/17 11/29/17 14:41 14:51 WBC RBC Hgb Hct MCV MCH MCHC RDW Plt Count MPV Neut % (Auto) Lymph % (Auto) [place] % (Auto) Eos % (Auto) Baso % (Auto) Neut # (Auto) Lymph # (Auto) [place] # (Auto) Eos # (Auto) Baso # (Auto) PT 14.2 H INR 1.3 APTT 19 L Puncture Site Rra pCO2 48 H pO2 60 L HCO3 27.0 ABG pH 7.38 ABG Total CO2 29.9 H ABG O2 Saturation 94.6 L ABG Base Excess 2.8 ABG Hemoglobin 8.9 L ABG Carboxyhemoglobin 2.6 H POC ABG HHb (Measured) 5.2 H ABG Methemoglobin 1.1 Ramesh Test Po A-a O2 Difference 593.0 Respiratory Index 9.9 Hgb O2 Saturation 91.1 L Liter Flow 12.0 FiO2 100.0 Sodium Potassium Chloride Carbon Dioxide Anion Gap BUN Creatinine Est GFR ( Amer) Est GFR (Non-Af Amer) POC Glucose (mg/dL) Random Glucose Calcium Phosphorus Magnesium Total Bilirubin AST ALT Alkaline Phosphatase Total Protein Albumin Globulin Albumin/Globulin Ratio Blood Type Antibody Screen - Imaging and Cardiology Chest x-ray Status: Image reviewed by me, Report reviewed by me Assessment & Plan - Assessment and Plan (Free Text) Assessment: 42M with L hemothorax s/p CT insertion Plan: - post-op H/H stable - post-op CXR with some improvement in effusion - cont to monitor CT output; keep on suction - AM CXR - encourage IS - d/w Dr. Elizabeth who agrees with above Hira, PGY-3
[2017-11-29 18:36] LABS: BODY FLUID TYPE PLEURAL
--- NOTE | 2017-11-29 19:05 | CP.PCM.PN ---
Subjective - Date & Time of Evaluation Date of Evaluation: 11/29/17 Time of Evaluation: 10:50 - Subjective Subjective: clinically same Objective - Vital Signs/Intake and Output Vital Signs (last 24 hours): Temp Pulse Resp BP Pulse Ox 100.2 F H 104 H 26 H 123/58 L 100 11/29/17 15:50 11/29/17 15:50 11/29/17 15:50 11/29/17 15:50 11/29/17 15:50 Intake and Output: 11/29/17 11/30/17 18:59 06:59 Intake Total 670 Output Total 5500 Balance -4830 - Medications Medications: Current Medications Albuterol (Ventolin Hfa 90 Mcg/Actuation (8 G)) 2 puff IH RQ6 PRN PRN Reason: SOB Last Admin: 11/18/17 08:19 Dose: 2 puff Albuterol/Ipratropium (Duoneb 3 Mg/0.5 Mg (3 Ml) Ud) 3 ml INH RQ6 [facility] Last Admin: 11/29/17 14:06 Dose: Not Given Aspirin (Ecotrin) 81 mg PO DAILY [facility] Last Admin: 11/29/17 11:31 Dose: 81 mg Enoxaparin Sodium (Lovenox) 40 mg SC DAILY [facility] Last Admin: 11/28/17 10:50 Dose: 40 mg Furosemide (Lasix) 40 mg IVP Q12 [facility] Guaifenesin/Dextromethorphan (Robitussin Dm) 15 ml PO Q6H [facility] Last Admin: 11/29/17 18:42 Dose: 15 ml Vancomycin HCl 1,250 mg/ (Sodium Chloride) 250 mls @ 166.6 mls/hr IVPB Q12H [facility] Last Admin: 11/29/17 03:13 Dose: 166.6 mls/hr Azithromycin 500 mg/ Sodium (Chloride) 250 mls @ 167 mls/hr IVPB Q24H [facility] PRN Reason: Protocol Last Admin: 11/28/17 22:31 Dose: 167 mls/hr Piperacillin Sod/Tazobactam Sod (Zosyn 3.375 Gm Iv Premix) 3.375 gm in 50 mls @ 100 mls/hr IVPB Q8H [facility] PRN Reason: Protocol Last Admin: 11/29/17 12:57 Dose: 50 mls Losartan Potassium (Cozaar) 50 mg PO DAILY [facility] Last Admin: 11/29/17 11:32 Dose: 50 mg Metformin HCl (Glucophage Xr) 500 mg PO HS [facility] Last Admin: 11/28/17 21:44 Dose: 500 mg Metoprolol Tartrate (Lopressor) 25 mg PO BID [facility] Last Admin: 11/29/17 11:31 Dose: 25 mg Morphine Sulfate (Morphine) 4 mg IVP Q4 PRN PRN Reason: Pain, moderate (4-7) Pantoprazole Sodium (Protonix Ec Tab) 40 mg PO DAILY [facility] Last Admin: 11/29/17 11:31 Dose: 40 mg Fluticasone/Salmeterol (Advair Diskus 250/50) 1 puff INH RQ12 [facility] Last Admin: 11/29/17 08:07 Dose: 1 puff Senna/Docusate Sodium (Senokot S 50 Mg-8.6 Mg) 1 tab PO BID [facility] Last Admin: 11/29/17 11:31 Dose: 1 tab - Labs Labs: 11/29/17 14:41 11/29/17 08:39 PT 14.2 SECONDS (9.7-12.2) H 11/29/17 14:41 INR 1.3 11/29/17 14:41 APTT 19 SECONDS (21-34) L 11/29/17 14:41 - Constitutional Appears: Well - Head Exam Head Exam: ATRAUMATIC, NORMAL INSPECTION, NORMOCEPHALIC - Eye Exam Eye Exam: EOMI, Normal appearance, PERRL Pupil Exam: NORMAL ACCOMODATION, PERRL - ENT Exam ENT Exam: Mucous Membranes Moist, Normal Exam - Neck Exam Neck Exam: Full ROM, Normal Inspection. absent: Lymphadenopathy - Respiratory Exam Respiratory Exam: Decreased Breath Sounds - Cardiovascular Exam Cardiovascular Exam: REGULAR RHYTHM, +S1, +S2 - GI/Abdominal Exam GI & Abdominal Exam: Soft, Diminished Bowel Sounds - Rectal Exam Rectal Exam: Deferred
[2017-11-29 19:10] LABS: BF GROSS APPEARANCE BLOODY (CLEAR)
--- NOTE | 2017-11-29 19:28 | PN ---
DATE: SUBJECTIVE: The patient underwent left thoracocentesis with removal of about 5 L of serosanguineous fluid. The patient in the recovery room, comfortable. PHYSICAL EXAMINATION VITAL SIGNS: Blood pressure 132/76, heart rate 116, temperature 98.4, respirations 20. HEENT: Pale conjunctivae. CHEST: Diminished breath sounds over the bases. HEART: Heart sounds regular and distant. EXTREMITIES: 1+ pitting edema. LABORATORY DATA: Today's hemoglobin and hematocrit 8.8 and 26.8. white count 15.7, platelet count 390,000. Today's SMA-7 is within normal limits. Calcium is below normal, 7.8. ASSESSMENT: 1. Bilateral pneumonia and large left pleural effusion, status post chest tube placement. 2. Hypertensive heart disease. 3. Morbid obesity. 4. Sleep apnea. RECOMMENDATIONS: Continue IV Zithromax, IV vancomycin, IV Zosyn. Continue bronchodilators. Continue Lasix 40 mg intravenous twice a day, aspirin 81 mg once a day. Continue Cozaar 50 mg p.o. once a day. The patient will be followed in the ICU. Lazaro Omalley MD
[2017-11-29 21:51] LABS: BODY FLUID MONO/MACROPHAGE 0 % (0-0)
[2017-11-30] MEDS: guaiFENesin DM 100 mg-10 mg/5 ml UD PO SCH ×4 (00:25→17:31)
[2017-11-30] MEDS: Azithromycin 500 MG in Sodium Chloride 0.9% 250 ML IVPB SCH ×2 (01:15→22:45)
[2017-11-30] MEDS: Albuterol-Ipratrop 3 mg / 0.5 (3 ml) UD INH SCH ×4 (01:19→19:46)
[2017-11-30] MEDS: Piperacill/Tazo 3.375gm in Dex 3.375 GM/50 ML BAG IVPB SCH ×3 (01:45→18:24)
[2017-11-30 03:23] LABS: BASO # 0.1 K/uL (0.0-0.2); BASO % 0.9 % (0.0-2.0); EOS # 0.1 K/uL (0.0-0.7); EOS % 0.8 % (0.0-4.0); HEMOGLOBIN 9.6 g/dL (12.0-18.0); LYMPH # 2.2 K/uL (1.0-4.3); MEAN CELL VOLUME 81.5 fL (80.0-94.0); MEAN CORPUSCULAR HGB CONC 33.1 g/dL (33.0-37.0); MEAN PLATELET VOLUME 7.3 fL (7.2-11.7); MONO # 1.3 K/uL (0.0-0.8); MONO % 10.6 % (0.0-10.0); NEUT # 8.3 K/uL (1.8-7.0); NEUT % 69.7 % (50.0-75.0); RBC 3.55 Mil/uL (4.40-5.90); WHITE BLOOD COUNT 11.9 K/uL (4.8-10.8)
[2017-11-30 04:08] LABS: ALB/GLOB RATIO 0.9 (1.0-2.1); ALBUMIN 2.8 g/dL (3.5-5.0); ALT/SGPT 36 U/L (21-72); AST/SGOT 31 U/L (17-59); BLOOD UREA NITROGEN 13 mg/dL (9-20); CALCIUM 7.4 mg/dl (8.6-10.4); GFR AFRICAN-AMERICAN > 60; GFR NON-AFRICAN AMERICAN > 60
--- NOTE | 2017-11-30 07:21 | CP.CCUPN ---
<Jessica Brown - Last Filed: 11/30/17 10:35> CCU Subjective - Physician Review Subjective (Free Text): 11/30/17 07:21 Patient seen and examined at bedside. Per nursing no acute events overnight. Patient is s/p chest tube placement yesterday. Received 2 units PRBCs post operatively. Patient states pain is controlled, offers no complaints at this time. CCU Objective - Vital Signs / Intake & Output Intake and Output (Last 8hrs): Intake & Output 11/29/17 11/30/17 11/30/17 22:59 06:59 14:59 Intake Total 1700 425 Output Total 1670 650 Balance 30 -225 Intake: Intake, IV Amount 400 300 Right PICC 400 300 Oral 775 Blood Product 525 125 Output: Chest Tube Drainage 870 Left 520 Urine 800 650 Urine, Voided 800 650 Stool 0 0 Emesis 0 - Medications Active Medications: Active Medications Generic Name Dose Route Start Last Admin Trade Name Freq PRN Reason Stop Dose Admin Albuterol 2 puff 11/17/17 02:00 11/18/17 08:19 Ventolin Hfa 90 Mcg/Actuation (8 G) IH 2 puff RQ6 PRN Administration SOB Albuterol/Ipratropium 3 ml 11/27/17 14:00 11/30/17 01:19 Duoneb 3 Mg/0.5 Mg (3 Ml) Ud INH 3 ml RQ6 ZANE Administration Aspirin 81 mg 11/24/17 10:00 11/29/17 11:31 Ecotrin PO 81 mg DAILY ZANE Administration Enoxaparin Sodium 40 mg 11/15/17 10:00 11/28/17 10:50 Lovenox SC 40 mg DAILY ZANE Administration Furosemide 40 mg 11/29/17 15:30 11/29/17 23:00 Lasix IVP Not Given Q12 ZANE Guaifenesin/Dextromethorphan 15 ml 11/21/17 12:04 11/30/17 00:25 Robitussin Dm PO 15 ml Q6H ZANE Administration Vancomycin HCl 1,250 mg/ 250 mls @ 166.6 mls/hr 11/16/17 03:00 11/29/17 19:00 Sodium Chloride IVPB 166.6 mls/hr Q12H ZANE Administration Azithromycin 500 mg/ Sodium 250 mls @ 167 mls/hr 11/26/17 23:00 11/30/17 01: 15 Chloride IVPB 167 mls/hr Q24H ZANE Administration Protocol Piperacillin Sod/Tazobactam Sod 3.375 gm in 50 mls @ 100 mls/hr 11/27/17 01: 45 11/30/17 01:45 Zosyn 3.375 Gm Iv Premix IVPB 100 mls/hr Q8H ZANE Administration Protocol Losartan Potassium 50 mg 11/15/17 10:00 11/29/17 11:32 Cozaar PO 50 mg DAILY ZANE Administration Metformin HCl 500 mg 11/23/17 22:00 11/29/17 23:00 Glucophage Xr PO 500 mg HS ZANE Administration Metoprolol Tartrate 25 mg 11/27/17 10:15 11/29/17 19:48 Lopressor PO Not Given BID ZANE Morphine Sulfate 4 mg 11/29/17 14:20 11/30/17 05:35 Morphine IVP 4 mg Q4 PRN Administration Pain, moderate (4-7) Pantoprazole Sodium 40 mg 11/15/17 10:00 11/29/17 11:31 Protonix Ec Tab PO 40 mg DAILY ZANE Administration Fluticasone/Salmeterol 1 puff 11/15/17 08:00 11/29/17 08:07 Advair Diskus 250/50 INH 1 puff RQ12 ZANE Administration Senna/Docusate Sodium 1 tab 11/23/17 18:00 11/29/17 19:44 Senokot S 50 Mg-8.6 Mg PO Not Given BID ZANE - Patient Studies Lab Studies: Microbiology Studies 11/29/17 17:19 Gram Stain - Final Pleural Fluid 11/27/17 15:45 Mycobacterial Culture - Preliminary Other: Please Indicate Lab Studies 11/30/17 11/30/17 11/29/17 Range/Units 03:20 03:20 21:30 WBC 11.9 H (4.8-10.8) K/uL RBC 3.55 L (4.40-5.90) Mil/uL Hgb 9.6 L (12.0-18.0) g/dL Hct 28.9 L (35.0-51.0) % MCV 81.5 (80.0-94.0) fL MCH 27.0 (27.0-31.0) pg MCHC 33.1 (33.0-37.0) g/dL RDW 16.0 H (11.5-14.5) % Plt Count 332 (130-400) K/uL MPV 7.3 (7.2-11.7) fL Neut % (Auto) 69.7 (50.0-75.0) % Lymph % (Auto) 18.0 L (20.0-40.0) % [place] % (Auto) 10.6 H (0.0-10.0) % Eos % (Auto) 0.8 (0.0-4.0) % Baso % (Auto) 0.9 (0.0-2.0) % Neut # (Auto) 8.3 H (1.8-7.0) K/uL Lymph # (Auto) 2.2 (1.0-4.3) K/uL [place] # (Auto) 1.3 H (0.0-0.8) K/uL Eos # (Auto) 0.1 (0.0-0.7) K/uL Baso # (Auto) 0.1 (0.0-0.2) K/uL PT (9.7-12.2) SECONDS INR APTT (21-34) SECONDS Puncture Site pCO2 (35-45) mm/Hg pO2 (80-100) mm/Hg HCO3 (21-28) mmol/L ABG pH (7.35-7.45) ABG Total CO2 (22-28) mmol/L ABG O2 Saturation (95-98) % ABG Base Excess (-2.0-3.0) mmol/L ABG Hemoglobin (11.7-17.4) g/dL ABG Carboxyhemoglobin (0.5-1.5) % POC ABG HHb (Measured) (0.0-5.0) % ABG Methemoglobin (0.0-3.0) % Ramesh Test A-a O2 Difference mm/Hg Respiratory Index Hgb O2 Saturation (95.0-98.0) % Liter Flow FiO2 % Sodium 136 (132-148) mmol/L Potassium 4.2 (3.6-5.2) mmol/L Chloride 100 (98-107) mmol/L Carbon Dioxide 28 (22-30) mmol/L Anion Gap 12 (10-20) BUN 13 (9-20) mg/dL Creatinine 1.3 (0.8-1.5) mg/dL Est GFR ( Amer) > 60 Est GFR (Non-Af Amer) > 60 POC Glucose (mg/dL) 120 H (65-110) mg/dL Random Glucose 104 (75-110) mg/dL Calcium 7.4 L (8.6-10.4) mg/dl Phosphorus 3.5 (2.5-4.5) mg/dL Magnesium 2.0 (1.6-2.3) mg/dL Total Bilirubin 0.3 (0.2-1.3) mg/dL AST 31 (17-59) U/L ALT 36 (21-72) U/L Alkaline Phosphatase 58 (38-126) U/L Total Protein 5.8 L (6.3-8.3) g/dL Albumin 2.8 L (3.5-5.0) g/dL Globulin 3.0 (2.2-3.9) gm/dL Albumin/Globulin Ratio 0.9 L (1.0-2.1) Vitamin B12 349 (239-931) pg/mL Folate 16.0 ng/mL Fluid Source Fluid Appearance (CLEAR) Fluid WBC (0.0-300.0) /mm3 Fluid RBC (0.0-0.0) /mm3 Fluid Tot Cell Count Fluid Neutrophils (0-0) % Fluid Lymphocytes (0-0) % Fld Monocyte/Macrophag (0-0) % Fluid Comment Blood Type Antibody Screen 11/29/17 11/29/17 11/29/17 Range/Units 18:34 14:51 14:41 WBC (4.8-10.8) K/uL RBC (4.40-5.90) Mil/uL Hgb (12.0-18.0) g/dL Hct (35.0-51.0) % MCV (80.0-94.0) fL MCH (27.0-31.0) pg MCHC (33.0-37.0) g/dL RDW (11.5-14.5) % Plt Count (130-400) K/uL MPV (7.2-11.7) fL Neut % (Auto) (50.0-75.0) % Lymph % (Auto) (20.0-40.0) % [place] % (Auto) (0.0-10.0) % Eos % (Auto) (0.0-4.0) % Baso % (Auto) (0.0-2.0) % Neut # (Auto) (1.8-7.0) K/uL Lymph # (Auto) (1.0-4.3) K/uL [place] # (Auto) (0.0-0.8) K/uL Eos # (Auto) (0.0-0.7) K/uL Baso # (Auto) (0.0-0.2) K/uL PT 14.2 H (9.7-12.2) SECONDS INR 1.3 APTT 19 L (21-34) SECONDS Puncture Site Rra pCO2 48 H (35-45) mm/Hg pO2 60 L (80-100) mm/Hg HCO3 27.0 (21-28) mmol/L ABG pH 7.38 (7.35-7.45) ABG Total CO2 29.9 H (22-28) mmol/L ABG O2 Saturation 94.6 L (95-98) % ABG Base Excess 2.8 (-2.0-3.0) mmol/L ABG Hemoglobin 8.9 L (11.7-17.4) g/dL ABG Carboxyhemoglobin 2.6 H (0.5-1.5) % POC ABG HHb (Measured) 5.2 H (0.0-5.0) % ABG Methemoglobin 1.1 (0.0-3.0) % Ramesh Test Po A-a O2 Difference 593.0 mm/Hg Respiratory Index 9.9 Hgb O2 Saturation 91.1 L (95.0-98.0) % Liter Flow 12.0 FiO2 100.0 % Sodium (132-148) mmol/L Potassium (3.6-5.2) mmol/L Chloride (98-107) mmol/L Carbon Dioxide (22-30) mmol/L Anion Gap (10-20) BUN (9-20) mg/dL Creatinine (0.8-1.5) mg/dL Est GFR ( Amer) Est GFR (Non-Af Amer) POC Glucose (mg/dL) (65-110) mg/dL Random Glucose (75-110) mg/dL Calcium (8.6-10.4) mg/dl Phosphorus (2.5-4.5) mg/dL Magnesium (1.6-2.3) mg/dL Total Bilirubin (0.2-1.3) mg/dL AST (17-59) U/L ALT (21-72) U/L Alkaline Phosphatase (38-126) U/L Total Protein (6.3-8.3) g/dL Albumin (3.5-5.0) g/dL Globulin (2.2-3.9) gm/dL Albumin/Globulin Ratio (1.0-2.1) Vitamin B12 (239-931) pg/mL Folate ng/mL Fluid Source Pleural Fluid Appearance Bloody (CLEAR) Fluid WBC 1223.0 H (0.0-300.0) /mm3 Fluid RBC 311847.0 H (0.0-0.0) /mm3 Fluid Tot Cell Count TEST NOT PERFORMED Fluid Neutrophils 84.0 H (0-0) % Fluid Lymphocytes 14.0 H (0-0) % Fld Monocyte/Macrophag 0 (0-0) % Fluid Comment Blood Type Antibody Screen 11/29/17 11/29/17 11/29/17 Range/Units 14:41 14:00 11:41 WBC 15.7 H (4.8-10.8) K/uL RBC 3.31 L (4.40-5.90) Mil/uL Hgb 8.8 L (12.0-18.0) g/dL Hct 26.8 L (35.0-51.0) % MCV 81.0 (80.0-94.0) fL MCH 26.6 L (27.0-31.0) pg MCHC 32.9 L (33.0-37.0) g/dL RDW 16.6 H (11.5-14.5) % Plt Count 390 (130-400) K/uL MPV 7.3 (7.2-11.7) fL Neut % (Auto) (50.0-75.0) % Lymph % (Auto) (20.0-40.0) % [place] % (Auto) (0.0-10.0) % Eos % (Auto) (0.0-4.0) % Baso % (Auto) (0.0-2.0) % Neut # (Auto) (1.8-7.0) K/uL Lymph # (Auto) (1.0-4.3) K/uL [place] # (Auto) (0.0-0.8) K/uL Eos # (Auto) (0.0-0.7) K/uL Baso # (Auto) (0.0-0.2) K/uL PT (9.7-12.2) SECONDS INR APTT (21-34) SECONDS Puncture Site pCO2 (35-45) mm/Hg pO2 (80-100) mm/Hg HCO3 (21-28) mmol/L ABG pH (7.35-7.45) ABG Total CO2 (22-28) mmol/L ABG O2 Saturation (95-98) % ABG Base Excess (-2.0-3.0) mmol/L ABG Hemoglobin (11.7-17.4) g/dL ABG Carboxyhemoglobin (0.5-1.5) % POC ABG HHb (Measured) (0.0-5.0) % ABG Methemoglobin (0.0-3.0) % Ramesh Test A-a O2 Difference mm/Hg Respiratory Index Hgb O2 Saturation (95.0-98.0) % Liter Flow FiO2 % Sodium (132-148) mmol/L Potassium (3.6-5.2) mmol/L Chloride (98-107) mmol/L Carbon Dioxide (22-30) mmol/L Anion Gap (10-20) BUN (9-20) mg/dL Creatinine (0.8-1.5) mg/dL Est GFR ( Amer) Est GFR (Non-Af Amer) POC Glucose (mg/dL) 112 H (65-110) mg/dL Random Glucose (75-110) mg/dL Calcium (8.6-10.4) mg/dl Phosphorus (2.5-4.5) mg/dL Magnesium (1.6-2.3) mg/dL Total Bilirubin (0.2-1.3) mg/dL AST (17-59) U/L ALT (21-72) U/L Alkaline Phosphatase (38-126) U/L Total Protein (6.3-8.3) g/dL Albumin (3.5-5.0) g/dL Globulin (2.2-3.9) gm/dL Albumin/Globulin Ratio (1.0-2.1) Vitamin B12 (239-931) pg/mL Folate ng/mL Fluid Source Fluid Appearance (CLEAR) Fluid WBC (0.0-300.0) /mm3 Fluid RBC (0.0-0.0) /mm3 Fluid Tot Cell Count Fluid Neutrophils (0-0) % Fluid Lymphocytes (0-0) % Fld Monocyte/Macrophag (0-0) % Fluid Comment Blood Type O POSITIVE Antibody Screen Negative 11/29/17 11/29/17 Range/Units 08:39 08:39 WBC 12.2 H (4.8-10.8) K/uL RBC 3.18 L (4.40-5.90) Mil/uL Hgb 8.6 L (12.0-18.0) g/dL Hct 25.7 L (35.0-51.0) % MCV 80.8 (80.0-94.0) fL MCH 27.0 (27.0-31.0) pg MCHC 33.4 (33.0-37.0) g/dL RDW 16.2 H (11.5-14.5) % Plt Count 388 (130-400) K/uL MPV 7.4 (7.2-11.7) fL Neut % (Auto) 68.5 (50.0-75.0) % Lymph % (Auto) 17.1 L (20.0-40.0) % [place] % (Auto) 12.2 H (0.0-10.0) % Eos % (Auto) 1.3 (0.0-4.0) % Baso % (Auto) 0.9 (0.0-2.0) % Neut # (Auto) 8.4 H (1.8-7.0) K/uL Lymph # (Auto) 2.1 (1.0-4.3) K/uL [place] # (Auto) 1.5 H (0.0-0.8) K/uL Eos # (Auto) 0.2 (0.0-0.7) K/uL Baso # (Auto) 0.1 (0.0-0.2) K/uL PT (9.7-12.2) SECONDS INR APTT (21-34) SECONDS Puncture Site pCO2 (35-45) mm/Hg pO2 (80-100) mm/Hg HCO3 (21-28) mmol/L ABG pH (7.35-7.45) ABG Total CO2 (22-28) mmol/L ABG O2 Saturation (95-98) % ABG Base Excess (-2.0-3.0) mmol/L ABG Hemoglobin (11.7-17.4) g/dL ABG Carboxyhemoglobin (0.5-1.5) % POC ABG HHb (Measured) (0.0-5.0) % ABG Methemoglobin (0.0-3.0) % Ramesh Test A-a O2 Difference mm/Hg Respiratory Index Hgb O2 Saturation (95.0-98.0) % Liter Flow FiO2 % Sodium 139 (132-148) mmol/L Potassium 3.9 (3.6-5.2) mmol/L Chloride 101 (98-107) mmol/L Carbon Dioxide 28 (22-30) mmol/L Anion Gap 13 (10-20) BUN 12 (9-20) mg/dL Creatinine 1.1 (0.8-1.5) mg/dL Est GFR ( Amer) > 60 Est GFR (Non-Af Amer) > 60 POC Glucose (mg/dL) (65-110) mg/dL Random Glucose 106 (75-110) mg/dL Calcium 7.8 L (8.6-10.4) mg/dl Phosphorus 3.7 (2.5-4.5) mg/dL Magnesium 2.0 (1.6-2.3) mg/dL Total Bilirubin 0.3 (0.2-1.3) mg/dL AST 20 (17-59) U/L ALT 29 (21-72) U/L Alkaline Phosphatase 67 (38-126) U/L Total Protein 6.2 L (6.3-8.3) g/dL Albumin 3.1 L (3.5-5.0) g/dL Globulin 3.0 (2.2-3.9) gm/dL Albumin/Globulin Ratio 1.0 (1.0-2.1) Vitamin B12 (239-931) pg/mL Folate ng/mL Fluid Source Fluid Appearance (CLEAR) Fluid WBC (0.0-300.0) /mm3 Fluid RBC (0.0-0.0) /mm3 Fluid Tot Cell Count Fluid Neutrophils (0-0) % Fluid Lymphocytes (0-0) % Fld Monocyte/Macrophag (0-0) % Fluid Comment Blood Type Antibody Screen Laboratory Results - last 24 hr 11/29/17 11/29/17 11/29/17 08:39 08:39 11:41 WBC 12.2 H RBC 3.18 L Hgb 8.6 L Hct 25.7 L MCV 80.8 MCH 27.0 MCHC 33.4 RDW 16.2 H Plt Count 388 MPV 7.4 Neut % (Auto) 68.5 Lymph % (Auto) 17.1 L [place] % (Auto) 12.2 H Eos % (Auto) 1.3 Baso % (Auto) 0.9 Neut # (Auto) 8.4 H Lymph # (Auto) 2.1 [place] # (Auto) 1.5 H Eos # (Auto) 0.2 Baso # (Auto) 0.1 PT INR APTT Puncture Site pCO2 pO2 HCO3 ABG pH ABG Total CO2 ABG O2 Saturation ABG Base Excess ABG Hemoglobin ABG Carboxyhemoglobin POC ABG HHb (Measured) ABG Methemoglobin Ramesh Test A-a O2 Difference Respiratory Index Hgb O2 Saturation Liter Flow FiO2 Sodium 139 Potassium 3.9 Chloride 101 Carbon Dioxide 28 Anion Gap 13 BUN 12 Creatinine 1.1 Est GFR ( Amer) > 60 Est GFR (Non-Af Amer) > 60 POC Glucose (mg/dL) 112 H Random Glucose 106 Calcium 7.8 L Phosphorus 3.7 Magnesium 2.0 Total Bilirubin 0.3 AST 20 ALT 29 Alkaline Phosphatase 67 Total Protein 6.2 L Albumin 3.1 L Globulin 3.0 Albumin/Globulin Ratio 1.0 Vitamin B12 Folate Fluid Source Fluid Appearance Fluid WBC Fluid RBC Fluid Tot Cell Count Fluid Neutrophils Fluid Lymphocytes Fld Monocyte/Macrophag Fluid Comment Blood Type Antibody Screen 11/29/17 11/29/17 11/29/17 14:00 14:41 14:41 WBC 15.7 H RBC 3.31 L Hgb 8.8 L Hct 26.8 L MCV 81.0 MCH 26.6 L MCHC 32.9 L RDW 16.6 H Plt Count 390 MPV 7.3 Neut % (Auto) Lymph % (Auto) [place] % (Auto) Eos % (Auto) Baso % (Auto) Neut # (Auto) Lymph # (Auto) [place] # (Auto) Eos # (Auto) Baso # (Auto) PT 14.2 H INR 1.3 APTT 19 L Puncture Site pCO2 pO2 HCO3 ABG pH ABG Total CO2 ABG O2 Saturation ABG Base Excess ABG Hemoglobin ABG Carboxyhemoglobin POC ABG HHb (Measured) ABG Methemoglobin Ramesh Test A-a O2 Difference Respiratory Index Hgb O2 Saturation Liter Flow FiO2 Sodium Potassium Chloride Carbon Dioxide Anion Gap BUN Creatinine Est GFR ( Amer) Est GFR (Non-Af Amer) POC Glucose (mg/dL) Random Glucose Calcium Phosphorus Magnesium Total Bilirubin AST ALT Alkaline Phosphatase Total Protein Albumin Globulin Albumin/Globulin Ratio Vitamin B12 Folate Fluid Source Fluid Appearance Fluid WBC Fluid RBC Fluid Tot Cell Count Fluid Neutrophils Fluid Lymphocytes Fld Monocyte/Macrophag Fluid Comment Blood Type O POSITIVE Antibody Screen Negative 11/29/17 11/29/17 11/29/17 14:51 18:34 21:30 WBC RBC Hgb Hct MCV MCH MCHC RDW Plt Count MPV Neut % (Auto) Lymph % (Auto) [place] % (Auto) Eos % (Auto) Baso % (Auto) Neut # (Auto) Lymph # (Auto) [place] # (Auto) Eos # (Auto) Baso # (Auto) PT INR APTT Puncture Site Rra pCO2 48 H pO2 60 L HCO3 27.0 ABG pH 7.38 ABG Total CO2 29.9 H ABG O2 Saturation 94.6 L ABG Base Excess 2.8 ABG Hemoglobin 8.9 L ABG Carboxyhemoglobin 2.6 H POC ABG HHb (Measured) 5.2 H ABG Methemoglobin 1.1 Ramesh Test Po A-a O2 Difference 593.0 Respiratory Index 9.9 Hgb O2 Saturation 91.1 L Liter Flow 12.0 FiO2 100.0 Sodium Potassium Chloride Carbon Dioxide Anion Gap BUN Creatinine Est GFR ( Amer) Est GFR (Non-Af Amer) POC Glucose (mg/dL) 120 H Random Glucose Calcium Phosphorus Magnesium Total Bilirubin AST ALT Alkaline Phosphatase Total Protein Albumin Globulin Albumin/Globulin Ratio Vitamin B12 Folate Fluid Source Pleural Fluid Appearance Bloody Fluid WBC 1223.0 H Fluid RBC 014961.0 H Fluid Tot Cell Count TEST NOT PERFORMED Fluid Neutrophils 84.0 H Fluid Lymphocytes 14.0 H Fld Monocyte/Macrophag 0 Fluid Comment Blood Type Antibody Screen 11/30/17 11/30/17 03:20 03:20 WBC 11.9 H RBC 3.55 L Hgb 9.6 L Hct 28.9 L MCV 81.5 MCH 27.0 MCHC 33.1 RDW 16.0 H Plt Count 332 MPV 7.3 Neut % (Auto) 69.7 Lymph % (Auto) 18.0 L [place] % (Auto) 10.6 H Eos % (Auto) 0.8 Baso % (Auto) 0.9 Neut # (Auto) 8.3 H Lymph # (Auto) 2.2 [place] # (Auto) 1.3 H Eos # (Auto) 0.1 Baso # (Auto) 0.1 PT INR APTT Puncture Site pCO2 pO2 HCO3 ABG pH ABG Total CO2 ABG O2 Saturation ABG Base Excess ABG Hemoglobin ABG Carboxyhemoglobin POC ABG HHb (Measured) ABG Methemoglobin Ramesh Test A-a O2 Difference Respiratory Index Hgb O2 Saturation Liter Flow FiO2 Sodium 136 Potassium 4.2 Chloride 100 Carbon Dioxide 28 Anion Gap 12 BUN 13 Creatinine 1.3 Est GFR ( Amer) > 60 Est GFR (Non-Af Amer) > 60 POC Glucose (mg/dL) Random Glucose 104 Calcium 7.4 L Phosphorus 3.5 Magnesium 2.0 Total Bilirubin 0.3 AST 31 ALT 36 Alkaline Phosphatase 58 Total Protein 5.8 L Albumin 2.8 L Globulin 3.0 Albumin/Globulin Ratio 0.9 L Vitamin B12 349 Folate 16.0 Fluid Source Fluid Appearance Fluid WBC Fluid RBC Fluid Tot Cell Count Fluid Neutrophils Fluid Lymphocytes Fld Monocyte/Macrophag Fluid Comment Blood Type Antibody Screen Critical Care Progress Note - Nutrition Nutrition: Nutrition Category Date Time Status Heart Healthy Diet [DIET] Diets 11/29/17 Dinner Active Assessment/Plan - Assessment and Plan (Free Text) Assessment: Patient is a 42 year old male with past medical history of morbid obesity and TB presented with recurrent left sided pleural effusion, s/p chest tube placement in the OR where approximately 5 liters of bloody pleural fluid was drained. Now being admitted to the ICU for closer monitoring. Neurology: -Patient is AAOx3 -Stable, last temp 100.8 Cardiology: -Patient with a history of HTN -Will continue Cozaar 50mg po daily -Metoprolol 25mg PO BID -Continue Aspirin 81mg PO daily Respiratory: -Will D/C airborne precautions, sputum for AFB negative x 3 -Patient with left sided chest tube for recurrent pleural effusion POD#1 -4.5-5L of bloody pleural fluid drained -F/U fluid analysis -CXR 11/30: Reproduced extensive left hemithoracic opacification - near complete. Since prior exam, patchy minimal increased aeration of the left mid lung (see full report) -Will repeat CT Chest with contrast to evaluate for possible mass -Continue Lasix 40mg IVP Q12 -Robitussin 15ml Q6H for cough -Morphine 4mg Q4H prn pain -Duonebs Q6H ZANE, Continue Advair 1 puff Q12H -CT surgeon Dr Elizabeth consulted, help appreciated Hematology -Hgb 9.6 s/p 2 units of PRBCs -Approximately 5L of bloody pleural fluid drained in the OR -Currently being transfused 1 additional unit of PRBCs -Will follow up post transfusion CBC GI: -Continue Protonix 40mg PO daily Endocrine: -Patient with history of Impaired Glucose Tolerance -Hgba1c 6.0 -Continue Metformin 500mg QHS Infectious Disease: -Leukocytosis 12.2 at this time -Currently being treated for Pneumonia -Legionella and mycoplasma negative -Antibiotics: Azithromycin 500mg IV daily, Zosyn 3.375mg IV Q8H, Vancomycin 1250mg Q12H -Infectious Disease on consult, Dr Rome, help appreciated GI/DVT ppx: -Protonix 40mg PO daily -SCDs, Lovenox 40mg SC daily <Ren Escoto - Last Filed: 11/30/17 14:22> CCU Objective - Vital Signs / Intake & Output Vital Signs (Last 4 hours): Vital Signs Temp Pulse Resp BP Pulse Ox 11/30/17 13:00 103 H 22 93 L 11/30/17 12:46 1001 F H 11/30/17 12:40 104 H 22 93 L 11/30/17 12:36 112/61 11/30/17 12:35 101 F H 105 H 18 112/60 11/30/17 12:27 104 H 22 124/68 93 L 11/30/17 12:20 107 H 21 93 L 11/30/17 12:10 110 H 20 92 L 11/30/17 12:00 107 H 21 95 03/15/18 11:53 108 H 22 129/67 92 L 11/30/17 11:50 108 H 23 94 L 11/30/17 11:40 110 H 21 93 L 11/30/17 11:39 111 H 22 119/68 93 L 11/30/17 11:30 110 H 24 94 L 11/30/17 11:23 110 H 24 121/59 L 94 L 11/30/17 11:20 110 H 24 94 L 11/30/17 11:10 112 H 21 92 L 11/30/17 11:08 103/65 11/30/17 11:00 100.6 F H 92 H 24 104/65 92 L 11/30/17 10:53 107 H 22 104/65 94 L 11/30/17 10:50 109 H 22 93 L 11/30/17 10:40 107 H 21 93 L 11/30/17 10:38 108 H 22 113/66 93 L 11/30/17 10:30 110 H 20 94 L 11/30/17 10:23 109 H 22 132/68 94 L 11/30/17 10:21 100 F H 108 H 21 132/68 Intake and Output (Last 8hrs): Intake & Output 11/29/17 11/30/17 11/30/17 22:59 06:59 14:59 Intake Total 8130 822 9573 Output Total 6940 716 5656 Balance 30 25 -502 Intake: Intake, IV Amount 400 550 50 Right PICC 400 550 50 Oral 775 650 Blood Product 525 125 278 Apheresis Rbc Cp2d As3 Lr 278 2nd Unit [id number] Other 50 Apheresis Rbc Cp2d As3 Lr 50 2nd Unit [id number] Output: Chest Tube Drainage 870 330 Left 520 330 Urine 695 006 0395 Urine, Voided 352 551 3503 Stool 0 0 Emesis 0 - Medications Active Medications: Active Medications Generic Name Dose Route Start Last Admin Trade Name Freq PRN Reason Stop Dose Admin Acetaminophen 650 mg 11/30/17 12:34 11/30/17 12:46 Tylenol 325mg Tab PO 650 mg Q6 PRN Administration Fever >100.4 F Albuterol 2 puff 11/17/17 02:00 11/18/17 08:19 Ventolin Hfa 90 Mcg/Actuation (8 G) IH 2 puff RQ6 PRN Administration SOB Albuterol/Ipratropium 3 ml 11/27/17 14:00 11/30/17 13:21 Duoneb 3 Mg/0.5 Mg (3 Ml) Ud INH 3 ml RQ6 ZANE Administration Aspirin 81 mg 11/24/17 10:00 11/30/17 09:46 Ecotrin PO 81 mg DAILY ZANE Administration Enoxaparin Sodium 40 mg 11/30/17 10:45 11/30/17 11:02 Lovenox SC 40 mg DAILY ZANE Administration Furosemide 40 mg 11/29/17 15:30 11/30/17 09:47 Lasix IVP 40 mg Q12 ZANE Administration Guaifenesin/Dextromethorphan 15 ml 11/21/17 12:04 11/30/17 12:03 Robitussin Dm PO 15 ml Q6H ZANE Administration Vancomycin HCl 1,250 mg/ 250 mls @ 166.6 mls/hr 11/16/17 03:00 11/30/17 04:00 Sodium Chloride IVPB 166.6 mls/hr Q12H ZANE Administration Azithromycin 500 mg/ Sodium 250 mls @ 167 mls/hr 11/26/17 23:00 11/30/17 01: 15 Chloride IVPB 167 mls/hr Q24H ZANE Administration Protocol Piperacillin Sod/Tazobactam Sod 3.375 gm in 50 mls @ 100 mls/hr 11/27/17 01: 45 11/30/17 12:48 Zosyn 3.375 Gm Iv Premix IVPB 100 mls/hr Q8H ZANE Administration Protocol Losartan Potassium 50 mg 11/15/17 10:00 11/30/17 12:03 Cozaar PO 50 mg DAILY ZANE Administration Metformin HCl 500 mg 11/23/17 22:00 11/29/17 23:00 Glucophage Xr PO 500 mg HS ZANE Administration Metoprolol Tartrate 25 mg 11/27/17 10:15 11/30/17 09:46 Lopressor PO 25 mg BID ZANE Administration Morphine Sulfate 4 mg 11/29/17 14:20 11/30/17 09:47 Morphine IVP 4 mg Q4 PRN Administration Pain, moderate (4-7) Pantoprazole Sodium 40 mg 11/15/17 10:00 11/30/17 09:46 Protonix Ec Tab PO 40 mg DAILY ZANE Administration Fluticasone/Salmeterol 1 puff 11/15/17 08:00 11/30/17 08:29 Advair Diskus 250/50 INH 1 puff RQ12 ZANE Administration Senna/Docusate Sodium 1 tab 11/23/17 18:00 11/30/17 09:49 Senokot S 50 Mg-8.6 Mg PO Not Given BID ZANE - Patient Studies Lab Studies: Microbiology Studies 11/29/17 17:19 Gram Stain - Final Pleural Fluid 11/27/17 15:45 Mycobacterial Culture - Preliminary Other: Please Indicate Lab Studies 11/30/17 11/30/17 11/30/17 Range/Units 12:00 07:43 03:20 WBC (4.8-10.8) K/uL RBC (4.40-5.90) Mil/uL Hgb (12.0-18.0) g/dL Hct (35.0-51.0) % MCV (80.0-94.0) fL MCH (27.0-31.0) pg MCHC (33.0-37.0) g/dL RDW (11.5-14.5) % Plt Count (130-400) K/uL MPV (7.2-11.7) fL Neut % (Auto) (50.0-75.0) % Lymph % (Auto) (20.0-40.0) % [place] % (Auto) (0.0-10.0) % Eos % (Auto) (0.0-4.0) % Baso % (Auto) (0.0-2.0) % Neut # (Auto) (1.8-7.0) K/uL Lymph # (Auto) (1.0-4.3) K/uL [place] # (Auto) (0.0-0.8) K/uL Eos # (Auto) (0.0-0.7) K/uL Baso # (Auto) (0.0-0.2) K/uL PT (9.7-12.2) SECONDS INR APTT (21-34) SECONDS Puncture Site pCO2 (35-45) mm/Hg pO2 (80-100) mm/Hg HCO3 (21-28) mmol/L ABG pH (7.35-7.45) ABG Total CO2 (22-28) mmol/L ABG O2 Saturation (95-98) % ABG Base Excess (-2.0-3.0) mmol/L ABG Hemoglobin (11.7-17.4) g/dL ABG Carboxyhemoglobin (0.5-1.5) % POC ABG HHb (Measured) (0.0-5.0) % ABG Methemoglobin (0.0-3.0) % Ramesh Test A-a O2 Difference mm/Hg Respiratory Index Hgb O2 Saturation (95.0-98.0) % Liter Flow FiO2 % Sodium 136 (132-148) mmol/L Potassium 4.2 (3.6-5.2) mmol/L Chloride 100 (98-107) mmol/L Carbon Dioxide 28 (22-30) mmol/L Anion Gap 12 (10-20) BUN 13 (9-20) mg/dL Creatinine 1.3 (0.8-1.5) mg/dL Est GFR ( Amer) > 60 Est GFR (Non-Af Amer) > 60 POC Glucose (mg/dL) 162 H 97 (65-110) mg/dL Random Glucose 104 (75-110) mg/dL Calcium 7.4 L (8.6-10.4) mg/dl Phosphorus 3.5 (2.5-4.5) mg/dL Magnesium 2.0 (1.6-2.3) mg/dL Total Bilirubin 0.3 (0.2-1.3) mg/dL AST 31 (17-59) U/L ALT 36 (21-72) U/L Alkaline Phosphatase 58 (38-126) U/L Total Protein 5.8 L (6.3-8.3) g/dL Albumin 2.8 L (3.5-5.0) g/dL Globulin 3.0 (2.2-3.9) gm/dL Albumin/Globulin Ratio 0.9 L (1.0-2.1) Vitamin B12 349 (239-931) pg/mL Folate 16.0 ng/mL Fluid Source Fluid Appearance (CLEAR) Fluid WBC (0.0-300.0) /mm3 Fluid RBC (0.0-0.0) /mm3 Fluid Tot Cell Count Fluid Neutrophils (0-0) % Fluid Lymphocytes (0-0) % Fld Monocyte/Macrophag (0-0) % Fluid Comment Blood Type Antibody Screen 11/30/17 11/29/17 11/29/17 Range/Units 03:20 21:30 18:34 WBC 11.9 H (4.8-10.8) K/uL RBC 3.55 L (4.40-5.90) Mil/uL Hgb 9.6 L (12.0-18.0) g/dL Hct 28.9 L (35.0-51.0) % MCV 81.5 (80.0-94.0) fL MCH 27.0 (27.0-31.0) pg MCHC 33.1 (33.0-37.0) g/dL RDW 16.0 H (11.5-14.5) % Plt Count 332 (130-400) K/uL MPV 7.3 (7.2-11.7) fL Neut % (Auto) 69.7 (50.0-75.0) % Lymph % (Auto) 18.0 L (20.0-40.0) % [place] % (Auto) 10.6 H (0.0-10.0) % Eos % (Auto) 0.8 (0.0-4.0) % Baso % (Auto) 0.9 (0.0-2.0) % Neut # (Auto) 8.3 H (1.8-7.0) K/uL Lymph # (Auto) 2.2 (1.0-4.3) K/uL [place] # (Auto) 1.3 H (0.0-0.8) K/uL Eos # (Auto) 0.1 (0.0-0.7) K/uL Baso # (Auto) 0.1 (0.0-0.2) K/uL PT (9.7-12.2) SECONDS INR APTT (21-34) SECONDS Puncture Site pCO2 (35-45) mm/Hg pO2 (80-100) mm/Hg HCO3 (21-28) mmol/L ABG pH (7.35-7.45) ABG Total CO2 (22-28) mmol/L ABG O2 Saturation (95-98) % ABG Base Excess (-2.0-3.0) mmol/L ABG Hemoglobin (11.7-17.4) g/dL ABG Carboxyhemoglobin (0.5-1.5) % POC ABG HHb (Measured) (0.0-5.0) % ABG Methemoglobin (0.0-3.0) % Ramesh Test A-a O2 Difference mm/Hg Respiratory Index Hgb O2 Saturation (95.0-98.0) % Liter Flow FiO2 % Sodium (132-148) mmol/L Potassium (3.6-5.2) mmol/L Chloride (98-107) mmol/L Carbon Dioxide (22-30) mmol/L Anion Gap (10-20) BUN (9-20) mg/dL Creatinine (0.8-1.5) mg/dL Est GFR ( Amer) Est GFR (Non-Af Amer) POC Glucose (mg/dL) 120 H (65-110) mg/dL Random Glucose (75-110) mg/dL Calcium (8.6-10.4) mg/dl Phosphorus (2.5-4.5) mg/dL Magnesium (1.6-2.3) mg/dL Total Bilirubin (0.2-1.3) mg/dL AST (17-59) U/L ALT (21-72) U/L Alkaline Phosphatase (38-126) U/L Total Protein (6.3-8.3) g/dL Albumin (3.5-5.0) g/dL Globulin (2.2-3.9) gm/dL Albumin/Globulin Ratio (1.0-2.1) Vitamin B12 (239-931) pg/mL Folate ng/mL Fluid Source Pleural Fluid Appearance Bloody (CLEAR) Fluid WBC 1223.0 H (0.0-300.0) /mm3 Fluid RBC 124234.0 H (0.0-0.0) /mm3 Fluid Tot Cell Count TEST NOT PERFORMED Fluid Neutrophils 84.0 H (0-0) % Fluid Lymphocytes 14.0 H (0-0) % Fld Monocyte/Macrophag 0 (0-0) % Fluid Comment Blood Type Antibody Screen 11/29/17 11/29/17 11/29/17 Range/Units 14:51 14:41 14:41 WBC 15.7 H (4.8-10.8) K/uL RBC 3.31 L (4.40-5.90) Mil/uL Hgb 8.8 L (12.0-18.0) g/dL Hct 26.8 L (35.0-51.0) % MCV 81.0 (80.0-94.0) fL MCH 26.6 L (27.0-31.0) pg MCHC 32.9 L (33.0-37.0) g/dL RDW 16.6 H (11.5-14.5) % Plt Count 390 (130-400) K/uL MPV 7.3 (7.2-11.7) fL Neut % (Auto) (50.0-75.0) % Lymph % (Auto) (20.0-40.0) % [place] % (Auto) (0.0-10.0) % Eos % (Auto) (0.0-4.0) % Baso % (Auto) (0.0-2.0) % Neut # (Auto) (1.8-7.0) K/uL Lymph # (Auto) (1.0-4.3) K/uL [place] # (Auto) (0.0-0.8) K/uL Eos # (Auto) (0.0-0.7) K/uL Baso # (Auto) (0.0-0.2) K/uL PT 14.2 H (9.7-12.2) SECONDS INR 1.3 APTT 19 L (21-34) SECONDS Puncture Site Rra pCO2 48 H (35-45) mm/Hg pO2 60 L (80-100) mm/Hg HCO3 27.0 (21-28) mmol/L ABG pH 7.38 (7.35-7.45) ABG Total CO2 29.9 H (22-28) mmol/L ABG O2 Saturation 94.6 L (95-98) % ABG Base Excess 2.8 (-2.0-3.0) mmol/L ABG Hemoglobin 8.9 L (11.7-17.4) g/dL ABG Carboxyhemoglobin 2.6 H (0.5-1.5) % POC ABG HHb (Measured) 5.2 H (0.0-5.0) % ABG Methemoglobin 1.1 (0.0-3.0) % Ramesh Test Po A-a O2 Difference 593.0 mm/Hg Respiratory Index 9.9 Hgb O2 Saturation 91.1 L (95.0-98.0) % Liter Flow 12.0 FiO2 100.0 % Sodium (132-148) mmol/L Potassium (3.6-5.2) mmol/L Chloride (98-107) mmol/L Carbon Dioxide (22-30) mmol/L Anion Gap (10-20) BUN (9-20) mg/dL Creatinine (0.8-1.5) mg/dL Est GFR ( Amer) Est GFR (Non-Af Amer) POC Glucose (mg/dL) (65-110) mg/dL Random Glucose (75-110) mg/dL Calcium (8.6-10.4) mg/dl Phosphorus (2.5-4.5) mg/dL Magnesium (1.6-2.3) mg/dL Total Bilirubin (0.2-1.3) mg/dL AST (17-59) U/L ALT (21-72) U/L Alkaline Phosphatase (38-126) U/L Total Protein (6.3-8.3) g/dL Albumin (3.5-5.0) g/dL Globulin (2.2-3.9) gm/dL Albumin/Globulin Ratio (1.0-2.1) Vitamin B12 (239-931) pg/mL Folate ng/mL Fluid Source Fluid Appearance (CLEAR) Fluid WBC (0.0-300.0) /mm3 Fluid RBC (0.0-0.0) /mm3 Fluid Tot Cell Count Fluid Neutrophils (0-0) % Fluid Lymphocytes (0-0) % Fld Monocyte/Macrophag (0-0) % Fluid Comment Blood Type Antibody Screen 11/29/17 Range/Units 14:00 WBC (4.8-10.8) K/uL RBC (4.40-5.90) Mil/uL Hgb (12.0-18.0) g/dL Hct (35.0-51.0) % MCV (80.0-94.0) fL MCH (27.0-31.0) pg MCHC (33.0-37.0) g/dL RDW (11.5-14.5) % Plt Count (130-400) K/uL MPV (7.2-11.7) fL Neut % (Auto) (50.0-75.0) % Lymph % (Auto) (20.0-40.0) % [place] % (Auto) (0.0-10.0) % Eos % (Auto) (0.0-4.0) % Baso % (Auto) (0.0-2.0) % Neut # (Auto) (1.8-7.0) K/uL Lymph # (Auto) (1.0-4.3) K/uL [place] # (Auto) (0.0-0.8) K/uL Eos # (Auto) (0.0-0.7) K/uL Baso # (Auto) (0.0-0.2) K/uL PT (9.7-12.2) SECONDS INR APTT (21-34) SECONDS Puncture Site pCO2 (35-45) mm/Hg pO2 (80-100) mm/Hg HCO3 (21-28) mmol/L ABG pH (7.35-7.45) ABG Total CO2 (22-28) mmol/L ABG O2 Saturation (95-98) % ABG Base Excess (-2.0-3.0) mmol/L ABG Hemoglobin (11.7-17.4) g/dL ABG Carboxyhemoglobin (0.5-1.5) % POC ABG HHb (Measured) (0.0-5.0) % ABG Methemoglobin (0.0-3.0) % Ramesh Test A-a O2 Difference mm/Hg Respiratory Index Hgb O2 Saturation (95.0-98.0) % Liter Flow FiO2 % Sodium (132-148) mmol/L Potassium (3.6-5.2) mmol/L Chloride (98-107) mmol/L Carbon Dioxide (22-30) mmol/L Anion Gap (10-20) BUN (9-20) mg/dL Creatinine (0.8-1.5) mg/dL Est GFR ( Amer) Est GFR (Non-Af Amer) POC Glucose (mg/dL) (65-110) mg/dL Random Glucose (75-110) mg/dL Calcium (8.6-10.4) mg/dl Phosphorus (2.5-4.5) mg/dL Magnesium (1.6-2.3) mg/dL Total Bilirubin (0.2-1.3) mg/dL AST (17-59) U/L ALT (21-72) U/L Alkaline Phosphatase (38-126) U/L Total Protein (6.3-8.3) g/dL Albumin (3.5-5.0) g/dL Globulin (2.2-3.9) gm/dL Albumin/Globulin Ratio (1.0-2.1) Vitamin B12 (239-931) pg/mL Folate ng/mL Fluid Source Fluid Appearance (CLEAR) Fluid WBC (0.0-300.0) /mm3 Fluid RBC (0.0-0.0) /mm3 Fluid Tot Cell Count Fluid Neutrophils (0-0) % Fluid Lymphocytes (0-0) % Fld Monocyte/Macrophag (0-0) % Fluid Comment Blood Type O POSITIVE Antibody Screen Negative Laboratory Results - last 24 hr 11/29/17 11/29/17 11/29/17 14:00 14:41 14:41 WBC 15.7 H RBC 3.31 L Hgb 8.8 L Hct 26.8 L MCV 81.0 MCH 26.6 L MCHC 32.9 L RDW 16.6 H Plt Count 390 MPV 7.3 Neut % (Auto) Lymph % (Auto) [place] % (Auto) Eos % (Auto) Baso % (Auto) Neut # (Auto) Lymph # (Auto) [place] # (Auto) Eos # (Auto) Baso # (Auto) PT 14.2 H INR 1.3 APTT 19 L Puncture Site pCO2 pO2 HCO3 ABG pH ABG Total CO2 ABG O2 Saturation ABG Base Excess ABG Hemoglobin ABG Carboxyhemoglobin POC ABG HHb (Measured) ABG Methemoglobin Ramesh Test A-a O2 Difference Respiratory Index Hgb O2 Saturation Liter Flow FiO2 Sodium Potassium Chloride Carbon Dioxide Anion Gap BUN Creatinine Est GFR ( Amer) Est GFR (Non-Af Amer) POC Glucose (mg/dL) Random Glucose Calcium Phosphorus Magnesium Total Bilirubin AST ALT Alkaline Phosphatase Total Protein Albumin Globulin Albumin/Globulin Ratio Vitamin B12 Folate Fluid Source Fluid Appearance Fluid WBC Fluid RBC Fluid Tot Cell Count Fluid Neutrophils Fluid Lymphocytes Fld Monocyte/Macrophag Fluid Comment Blood Type O POSITIVE Antibody Screen Negative 11/29/17 11/29/17 11/29/17 14:51 18:34 21:30 WBC RBC Hgb Hct MCV MCH MCHC RDW Plt Count MPV Neut % (Auto) Lymph % (Auto) [place] % (Auto) Eos % (Auto) Baso % (Auto) Neut # (Auto) Lymph # (Auto) [place] # (Auto) Eos # (Auto) Baso # (Auto) PT INR APTT Puncture Site Rra pCO2 48 H pO2 60 L HCO3 27.0 ABG pH 7.38 ABG Total CO2 29.9 H ABG O2 Saturation 94.6 L ABG Base Excess 2.8 ABG Hemoglobin 8.9 L ABG Carboxyhemoglobin 2.6 H POC ABG HHb (Measured) 5.2 H ABG Methemoglobin 1.1 Ramesh Test Po A-a O2 Difference 593.0 Respiratory Index 9.9 Hgb O2 Saturation 91.1 L Liter Flow 12.0 FiO2 100.0 Sodium Potassium Chloride Carbon Dioxide Anion Gap BUN Creatinine Est GFR ( Amer) Est GFR (Non-Af Amer) POC Glucose (mg/dL) 120 H Random Glucose Calcium Phosphorus Magnesium Total Bilirubin AST ALT Alkaline Phosphatase Total Protein Albumin Globulin Albumin/Globulin Ratio Vitamin B12 Folate Fluid Source Pleural Fluid Appearance Bloody Fluid WBC 1223.0 H Fluid RBC 704571.0 H Fluid Tot Cell Count TEST NOT PERFORMED Fluid Neutrophils 84.0 H Fluid Lymphocytes 14.0 H Fld Monocyte/Macrophag 0 Fluid Comment Blood Type Antibody Screen 11/30/17 11/30/17 11/30/17 03:20 03:20 07:43 WBC 11.9 H RBC 3.55 L Hgb 9.6 L Hct 28.9 L MCV 81.5 MCH 27.0 MCHC 33.1 RDW 16.0 H Plt Count 332 MPV 7.3 Neut % (Auto) 69.7 Lymph % (Auto) 18.0 L [place] % (Auto) 10.6 H Eos % (Auto) 0.8 Baso % (Auto) 0.9 Neut # (Auto) 8.3 H Lymph # (Auto) 2.2 [place] # (Auto) 1.3 H Eos # (Auto) 0.1 Baso # (Auto) 0.1 PT INR APTT Puncture Site pCO2 pO2 HCO3 ABG pH ABG Total CO2 ABG O2 Saturation ABG Base Excess ABG Hemoglobin ABG Carboxyhemoglobin POC ABG HHb (Measured) ABG Methemoglobin Ramesh Test A-a O2 Difference Respiratory Index Hgb O2 Saturation Liter Flow FiO2 Sodium 136 Potassium 4.2 Chloride 100 Carbon Dioxide 28 Anion Gap 12 BUN 13 Creatinine 1.3 Est GFR ( Amer) > 60 Est GFR (Non-Af Amer) > 60 POC Glucose (mg/dL) 97 Random Glucose 104 Calcium 7.4 L Phosphorus 3.5 Magnesium 2.0 Total Bilirubin 0.3 AST 31 ALT 36 Alkaline Phosphatase 58 Total Protein 5.8 L Albumin 2.8 L Globulin 3.0 Albumin/Globulin Ratio 0.9 L Vitamin B12 349 Folate 16.0 Fluid Source Fluid Appearance Fluid WBC Fluid RBC Fluid Tot Cell Count Fluid Neutrophils Fluid Lymphocytes Fld Monocyte/Macrophag Fluid Comment Blood Type Antibody Screen 11/30/17 12:00 WBC RBC Hgb Hct MCV MCH MCHC RDW Plt Count MPV Neut % (Auto) Lymph % (Auto) [place] % (Auto) Eos % (Auto) Baso % (Auto) Neut # (Auto) Lymph # (Auto) [place] # (Auto) Eos # (Auto) Baso # (Auto) PT INR APTT Puncture Site pCO2 pO2 HCO3 ABG pH ABG Total CO2 ABG O2 Saturation ABG Base Excess ABG Hemoglobin ABG Carboxyhemoglobin POC ABG HHb (Measured) ABG Methemoglobin Ramesh Test A-a O2 Difference Respiratory Index Hgb O2 Saturation Liter Flow FiO2 Sodium Potassium Chloride Carbon Dioxide Anion Gap BUN Creatinine Est GFR ( Amer) Est GFR (Non-Af Amer) POC Glucose (mg/dL) 162 H Random Glucose Calcium Phosphorus Magnesium Total Bilirubin AST ALT Alkaline Phosphatase Total Protein Albumin Globulin Albumin/Globulin Ratio Vitamin B12 Folate Fluid Source Fluid Appearance Fluid WBC Fluid RBC Fluid Tot Cell Count Fluid Neutrophils Fluid Lymphocytes Fld Monocyte/Macrophag Fluid Comment Blood Type Antibody Screen Critical Care Progress Note - Nutrition Nutrition: Nutrition Category Date Time Status Heart Healthy Diet [DIET] Diets 11/29/17 Dinner Active Attending/Attestation - Attestation I have personally seen and examined this patient.: Yes I have fully participated in the care of the patient.: Yes I have reviewed all pertinent clinical information: Yes Notes (Text): 11/30/17 14:15 I have seen and examined the patient. Medical records, lab studies, and imaging were reviewed by me and a management plan was formulated on multidisciplinary rounds with resident Dr. Brown. I agree with their documented assessment and plan. s/p chest tube placement there has not been an improvement in CXR. Patient is breathing comfortably. Will obtain CT scan of the chest, suspect malignancy. Critical Care Time 35 minutes. Multi-disciplinary rounds were performed with house staff, nursing, speech therapy, respiratory therapy, pharmacy and nutrition with integrated input from the primary team/attending and other consulting services. The documented time is cumulative and includes review of patient data/exams/labs/chart review and examination of the patient on rounds and throughout the day; time is exclusive of any procedures or teaching time. 11/30/17 14:20
[2017-11-30] MEDS: Fluticasone-Salmeterol 250-50mcg Diskus INH SCH ×2 (08:29→19:45)
--- NOTE | 2017-11-30 09:07 | OP ---
PROCEDURE DATE: 11/29/2017 PREOPERATIVE DIAGNOSES: 1. Left pleural effusion. 2. Severe morbid obesity. 3. Shortness of breath and chest pain. 4. Failed IR thoracentesis. POSTOPERATIVE DIAGNOSES: 1. Left pleural effusion. 2. Severe morbid obesity. 3. Shortness of breath and chest pain. 4. Failed IR thoracentesis. 5. Hemothorax. PROCEDURE DONE: 1. Left chest tube placement. 2. Evacuation of left Hemothorax, 5 litre. SURGEON: The procedure was done by Dr. Virgen seo. ADMINISTRATIVE [employer] MEMBER: Dolly Iniguez, PGY-3 resident. TYPE OF ANESTHESIA: Local anesthesia plus sedation. ESTIMATED BLOOD LOSS: Around 5 L from left pleural cavity. PATHOLOGY: The pleural fluid was sent for the Cytology. COMPLICATIONS: None. INTRAOPERATIVE FINDINGS: The patient had severe morbid obesity, and as soon as entry in to the pleural cavity, approximately 5 litre of bloody fluid was drained. DESCRIPTION OF PROCEDURE: On intraoperative steps, this is a 42-year-old male who was previously seen for left upper quadrant swelling, and later on during the admission, patient developed left pleural effusion. The patient underwent interventional radiology guided thoracentesis, and after unable to drain the pleural fluid completely, and the patient had complete white-out of the left lung. Surgery was reconsulted. The patient was seen and examined at the bedside and patient was consented for left chest tube placement and patient was brought to the OR, placed supine on the patient bed, and after induction of the sedation, the left chest was prepped and draped in the usual sterile fashion and incision was made on the fourth intercostal space after dividing the skin, subcutaneous tissue, and the fascia. The sixth and seventh rib was identified and local anesthesia was injected, the dissection was done on top of the 5th rib and 32 [place] chest tube was placed and as soon as the insertion of the chest tube, approximately 2 L of gush of blood was drained into the canister, and now the second canister was connected that was also full, and total 5 litre of hemothorax was evacuated. Patient remained stable throughout during the procedure. Patient did not develop hypotension or severe tachycardia, and after complete drainage of hemothorax, the chest tube was secured to the skin and placed on suction. Patient tolerated the procedure well. Count of the instrument and gauze was correct. Dry sterile dressing was applied. The patient was sent to the ICU for further care. Andres New MD LARRY
[2017-11-30] MEDS: Pantoprazole 40 mg EC Tab PO SCH (09:46)
[2017-11-30] MEDS: Docusate-Senna 50 mg-8.6 mg Tab PO SCH ×2 (09:49→17:31)
--- NOTE | 2017-11-30 10:11 | RAD ---
HISTORY: chest tube COMPARISON: 11/29/2017 at 1431 hour FINDINGS: LUNGS: Left hemithoracic near complete opacification. Since the prior exam some patchy aeration in the left mid lung zone is apparent. Prior CT referenced large left pleural effusion with compressive atelectasis and rightward midline shift. Left chest tube position on the 11/29/2017 study is fairly similar in appearance and position. No gross pneumothorax is appreciated The right hilar/ perihilar markings are slightly prominent - shallow right lung volume noted possibly contributing to this appearance PLEURA: Left effusion suspect CARDIOVASCULAR: Cardiomegaly OSSEOUS STRUCTURES: Suboptimally visualized VISUALIZED UPPER ABDOMEN: Normal. OTHER FINDINGS: None. IMPRESSION: Reproduced extensive left hemithoracic opacification - near complete. Since the prior exam, patchy minimal increased aeration of the left mid lung is appreciated. Left chest tube tip in this area. Its position is similar to before. No gross pneumothorax appreciated. Underlying left pleural effusion suspect - posterior medial left gutter probable
[2017-11-30] MEDS: Enoxaparin 40 mg Syringe SC SCH (11:02)
--- NOTE | 2017-11-30 11:41 | CP.PCM.PN ---
<Yahir Ragland Julita - Last Filed: 11/30/17 11:37> Subjective - Date & Time of Evaluation Date of Evaluation: 11/30/17 Time of Evaluation: 06:55 - Subjective Subjective: Ct Surgery: Dr Elizabeth Pt S&E. POD#1 s/p left thoracostomy tube insertion. Pt is s/p 2 units pRBC with 3rd unit pending. HgB only mildly increased after transfusion. Remains with low grade tachycardia. Reports breathing is improved, though he has pain secondary to chest tube. Objective - Vital Signs/Intake and Output Vital Signs (last 24 hours): Temp Pulse Resp BP Pulse Ox 100 F H 112 H 21 103/65 92 L 11/30/17 10:21 11/30/17 11:10 11/30/17 11:10 11/30/17 11:08 11/30/17 11:10 Intake and Output: 11/30/17 11/30/17 06:59 18:59 Intake Total 1525 300 Output Total 1770 330 Balance -245 -30 - Medications Medications: Current Medications Albuterol (Ventolin Hfa 90 Mcg/Actuation (8 G)) 2 puff IH RQ6 PRN PRN Reason: SOB Last Admin: 11/18/17 08:19 Dose: 2 puff Albuterol/Ipratropium (Duoneb 3 Mg/0.5 Mg (3 Ml) Ud) 3 ml INH RQ6 [facility] Last Admin: 11/30/17 08:29 Dose: 3 ml Aspirin (Ecotrin) [address] [facility] Last Admin: 11/30/17 09:46 Dose: 81 mg Enoxaparin Sodium (Lovenox) 40 mg SC DAILY [facility] Last Admin: 11/30/17 11:02 Dose: 40 mg Furosemide (Lasix) 40 mg IVP Q12 [facility] Last Admin: 11/30/17 09:47 Dose: 40 mg Guaifenesin/Dextromethorphan (Robitussin Dm) 15 ml PO Q6H [facility] Last Admin: 11/30/17 07:00 Dose: 15 ml Vancomycin HCl 1,250 mg/ (Sodium Chloride) 250 mls @ 166.6 mls/hr IVPB Q12H [facility] Last Admin: 11/30/17 04:00 Dose: 166.6 mls/hr Azithromycin 500 mg/ Sodium (Chloride) 250 mls @ 167 mls/hr IVPB Q24H [facility] PRN Reason: Protocol Last Admin: 11/30/17 01:15 Dose: 167 mls/hr Piperacillin Sod/Tazobactam Sod (Zosyn 3.375 Gm Iv Premix) 3.375 gm in 50 mls @ 100 mls/hr IVPB Q8H [facility] PRN Reason: Protocol Last Admin: 11/30/17 01:45 Dose: 100 mls/hr Losartan Potassium (Cozaar) [address] [facility] Last Admin: 11/29/17 11:32 Dose: 50 mg Metformin HCl (Glucophage Xr) [address] [facility] Last Admin: 11/29/17 23:00 Dose: 500 mg Metoprolol Tartrate (Lopressor) [address] [facility] Last Admin: 11/30/17 09:46 Dose: 25 mg Morphine Sulfate (Morphine) 4 mg IVP Q4 PRN PRN Reason: Pain, moderate (4-7) Last Admin: 11/30/17 09:47 Dose: 4 mg Pantoprazole Sodium (Protonix Ec Tab) [address] [facility] Last Admin: 11/30/17 09:46 Dose: 40 mg Fluticasone/Salmeterol (Advair Diskus 250/50) [address] [facility] Last Admin: 11/30/17 08:29 Dose: 1 puff Senna/Docusate Sodium (Senokot S 50 Mg-8.6 Mg) [address] [facility] Last Admin: 11/30/17 09:49 Dose: Not Given - Labs Labs: 11/30/17 03:20 11/30/17 03:20 PT 14.2 SECONDS (9.7-12.2) H 11/29/17 14:41 INR 1.3 11/29/17 14:41 APTT 19 SECONDS (21-34) L 11/29/17 14:41 - Constitutional Appears: Non-toxic, No Acute Distress - ENT Exam ENT Exam: Mucous Membranes Moist - Respiratory Exam Respiratory Exam: absent: Accessory Muscle Use, Respiratory Distress - Cardiovascular Exam Cardiovascular Exam: Tachycardia (100-110), REGULAR RHYTHM - GI/Abdominal Exam GI & Abdominal Exam: Soft. absent: Distended - Neurological Exam Neurological Exam: Alert, Awake, Oriented x3 - Psychiatric Exam Psychiatric exam: Normal Affect, Normal Mood - Skin Skin Exam: Normal Color, Warm Assessment and Plan - Assessment and Plan (Free Text) Assessment: 42M with left sided pleural effusion s/p thoracostomy tube Plan: monitor CT output - rate of output trending down trend HgB pRBC PRN goal of HgB >10 CT chest r/o malignancy will follow closely d/w Dr Glenn Ragland, PGY3 <Andres New B - Last Filed: 12/03/17 19:36> Objective - Vital Signs/Intake and Output Vital Signs (last 24 hours): Temp Pulse Resp BP Pulse Ox 98.4 F 87 16 145/67 98 12/03/17 16:00 12/03/17 18:00 12/03/17 18:00 12/03/17 17:35 12/03/17 18:00 Intake and Output: 12/03/17 12/04/17 18:59 06:59 Intake Total 2317 Output Total 1980 Balance 337 - Medications Medications: Current Medications Acetaminophen (Tylenol 325mg Tab) 650 mg PO Q6 PRN PRN Reason: Fever >100.4 F Last Admin: 12/01/17 07:39 Dose: 650 mg Aspirin (Ecotrin) [address] [facility] Last Admin: 12/03/17 09:23 Dose: 81 mg Enoxaparin Sodium (Lovenox) [address] [facility] Last Admin: 12/03/17 09:24 Dose: 40 mg Guaifenesin/Dextromethorphan (Robitussin Dm) [address] [facility] Last Admin: 12/03/17 17:12 Dose: 15 ml Vancomycin HCl 1,250 mg/ (Sodium Chloride) 250 mls @ 166.6 mls/hr IVPB Q12H [facility] Last Admin: 12/03/17 14:12 Dose: 166.6 mls/hr Piperacillin Sod/Tazobactam Sod (Zosyn 3.375 Gm Iv Premix) 3.375 gm in 50 mls @ 100 mls/hr IVPB Q8H [facility] PRN Reason: Protocol Last Admin: 12/03/17 17:05 Dose: 100 mls/hr Metronidazole (Flagyl) 500 mg in 100 mls @ 100 mls/hr IVPB Q8 [facility] PRN Reason: Protocol Last Admin: 12/03/17 13:05 Dose: 100 mls/hr Sodium Chloride (Sodium Chloride 0.9%) 1,000 mls @ 75 mls/hr IV .[id number] [facility] Last Admin: 12/03/17 10:59 Dose: Not Given Losartan Potassium (Cozaar) [address] [facility] Last Admin: 12/03/17 09:23 Dose: 50 mg Metoprolol Tartrate (Lopressor) [address] [facility] Last Admin: 12/03/17 17:06 Dose: 25 mg Morphine Sulfate (Morphine) 4 mg IVP Q4 PRN PRN Reason: Pain, moderate (4-7) Last Admin: 12/03/17 16:08 Dose: 4 mg Fluticasone/Salmeterol (Advair Diskus 250/50) [address] [facility] Last Admin: 12/03/17 07:52 Dose: 1 puff Senna/Docusate Sodium (Senokot S 50 Mg-8.6 Mg) [address] [facility] Last Admin: 12/03/17 17:06 Dose: 1 tab - Labs Labs: 12/03/17 06:34 12/03/17 06:34 PT 14.2 SECONDS (9.7-12.2) H 11/29/17 14:41 INR 1.3 11/29/17 14:41 APTT 19 SECONDS (21-34) L 11/29/17 14:41 Attending/Attestation - Attestation I have personally seen and examined this patient.: Yes I have fully participated in the care of the patient.: Yes I have reviewed all pertinent clinical information, including history, physical exam and plan: Yes Notes (Text): Pt was seen and examined at bedside Agree with above note and assessment Pt with left chest tube and leucocytosis and tachycardia CT scan of A/P is suggestive of Fluid and air pocket in left flank area with possible phlagmoneous soft tissue infection Plan: OR for Debridement and drainage of collection of left flank Consent NPO, IVF C/w IV antibiotics c.w current mx Plan d.w pt in detail. Risk and benefit explained in detail.
[2017-11-30] MEDS ORDERED: Iodixanol 320 MG/ML 100 ML BOTTLE IV ONE (16:11)
--- NOTE | 2017-11-30 16:51 | CP.PCM.PN ---
Subjective - Date & Time of Evaluation Date of Evaluation: 11/30/17 Time of Evaluation: 11:20 - Subjective Subjective: clinically same Objective - Vital Signs/Intake and Output Vital Signs (last 24 hours): Temp Pulse Resp BP Pulse Ox 99.4 F 96 H 22 100/47 L 94 L 11/30/17 16:00 11/30/17 16:00 11/30/17 16:00 11/30/17 15:36 11/30/17 16:00 Intake and Output: 11/30/17 11/30/17 06:59 18:59 Intake Total 1525 1278 Output Total 1770 1530 Balance -245 -252 - Medications Medications: Current Medications Acetaminophen (Tylenol 325mg Tab) 650 mg PO Q6 PRN PRN Reason: Fever >100.4 F Last Admin: 11/30/17 12:46 Dose: 650 mg Albuterol (Ventolin Hfa 90 Mcg/Actuation (8 G)) 2 puff IH RQ6 PRN PRN Reason: SOB Last Admin: 11/18/17 08:19 Dose: 2 puff Albuterol/Ipratropium (Duoneb 3 Mg/0.5 Mg (3 Ml) Ud) 3 ml INH RQ6 [facility] Last Admin: 11/30/17 13:21 Dose: 3 ml Aspirin (Ecotrin) 81 mg PO DAILY [facility] Last Admin: 11/30/17 09:46 Dose: 81 mg Enoxaparin Sodium (Lovenox) 40 mg SC DAILY [facility] Last Admin: 11/30/17 11:02 Dose: 40 mg Furosemide (Lasix) 40 mg IVP Q12 [facility] Last Admin: 11/30/17 09:47 Dose: 40 mg Guaifenesin/Dextromethorphan (Robitussin Dm) 15 ml PO Q6H [facility] Last Admin: 11/30/17 12:03 Dose: 15 ml Vancomycin HCl 1,250 mg/ (Sodium Chloride) 250 mls @ 166.6 mls/hr IVPB Q12H [facility] Last Admin: 11/30/17 14:17 Dose: 166.6 mls/hr Azithromycin 500 mg/ Sodium (Chloride) 250 mls @ 167 mls/hr IVPB Q24H [facility] PRN Reason: Protocol Last Admin: 11/30/17 01:15 Dose: 167 mls/hr Piperacillin Sod/Tazobactam Sod (Zosyn 3.375 Gm Iv Premix) 3.375 gm in 50 mls @ 100 mls/hr IVPB Q8H [facility] PRN Reason: Protocol Last Admin: 11/30/17 12:48 Dose: 100 mls/hr Losartan Potassium (Cozaar) 50 mg PO DAILY [facility] Last Admin: 11/30/17 12:03 Dose: 50 mg Metformin HCl (Glucophage Xr) 500 mg PO HS [facility] Last Admin: 11/29/17 23:00 Dose: 500 mg Metoprolol Tartrate (Lopressor) 25 mg PO BID [facility] Last Admin: 11/30/17 09:46 Dose: 25 mg Morphine Sulfate (Morphine) 4 mg IVP Q4 PRN PRN Reason: Pain, moderate (4-7) Last Admin: 11/30/17 09:47 Dose: 4 mg Pantoprazole Sodium (Protonix Ec Tab) 40 mg PO DAILY [facility] Last Admin: 11/30/17 09:46 Dose: 40 mg Fluticasone/Salmeterol (Advair Diskus 250/50) 1 puff INH RQ12 [facility] Last Admin: 11/30/17 08:29 Dose: 1 puff Senna/Docusate Sodium (Senokot S 50 Mg-8.6 Mg) 1 tab PO BID [facility] Last Admin: 11/30/17 09:49 Dose: Not Given - Labs Labs: 11/30/17 03:20 11/30/17 03:20 PT 14.2 SECONDS (9.7-12.2) H 11/29/17 14:41 INR 1.3 11/29/17 14:41 APTT 19 SECONDS (21-34) L 11/29/17 14:41 Assessment and Plan - Assessment and Plan (Free Text) Plan: It is post chest tube on the right side Status post pleural effusion Continue Zosyn Continue IV Zithromax Continue IV vancomycin Continue metformin CBC CMP Patient is in the ICU Follow-up with the consultations
--- NOTE | 2017-11-30 17:51 | PN ---
DATE: SUBJECTIVE: The patient is mildly short of breath. He denies any retrosternal chest pain. PHYSICAL EXAMINATION: VITAL SIGNS: Blood pressure 112/61, heart rate 103, temperature 100.1, respirations 22. HEENT: Pale conjunctivae. CHEST: Absent breath sounds over the bases. HEART: S1 and S2 regular. EXTREMITIES: 1+ pitting edema. LABORATORY STUDIES: Today's SMA-7 is within normal limits. Calcium is below normal at 7.4. Hemoglobin and hematocrit 9.6 and 28.9, white count 11.9, platelet count 332,000. Pleural fluid was high in WBC's and RBC's. Today's chest x-ray revealed cardiomegaly, bilateral infiltrates involving the entire left lung and right middle lobes. ASSESSMENT: 1. Morbid obesity. 2. Status post left chest tube placement for large left pleural effusion. 3. Bilateral pneumonia. 4. Anemia. RECOMMENDATIONS: Continue IV Zithromax, IV vancomycin, and IV Zosyn. Continue Cozaar 60 mg once a day, aspirin 81 mg once a day, Lasix 40 mg intravenous twice a day, Lopressor 25 mg twice a day, Lovenox 20 mg once a day. Please continue current bronchodilators. Lazaro Omalley MD
--- NOTE | 2017-11-30 18:24 | CT ---
PROCEDURE: CT Chest with contrast HISTORY: r/o mass, with anterior abdominal wall cellulitis COMPARISON: 11/28/2017 CT thorax TECHNIQUE: Contiguous axial images were obtained through the chest with intravenous contrast enhancement. Sagittal and coronal reconstructions were performed. IV contrast: 100 cc Visipaque 320. Radiation dose (DLP): 985.79 mGy-cm. This CT exam was performed using one or more of the following dose reduction techniques: Automated exposure control, adjustment of the mA and/or kV according to patient size, and/or use of iterative reconstruction technique. FINDINGS: LUNGS: Improved aeration of the left lung following chest tube placement. Consolidative changes remain primarily in the right lower lobe and posterior segment of the right upper lobe. MEDIASTINUM: Unremarkable thoracic aorta. No aneurysm or dissection. Normal sized heart. Main pulmonary artery unremarkable. No vascular congestion. No evidence of hilar/ mediastinal mass. No appreciable adenopathy. PLEURA: Trace pleural effusion. Small pneumothorax ex vacuo at the left base. BONES: No fracture. No destructive lesion. UPPER ABDOMEN: No intra-abdominal abnormalities. Postoperative changes/ debridement incompletely visualized lateral aspect of the abdomen on the left. No extension into the peritoneum and is identified. OTHER FINDINGS: None. IMPRESSION: Status post chest tube placement left pleural space. Near complete resolution of left pleural effusion. Substantial re-expansion of the left lung. Residual consolidative changes left lower lobe and left upper lobe. Incompletely visualized surgical changes lateral left abdominal wall. Etiology, significance of these is insert
--- NOTE | 2017-11-30 22:52 | CP.PCM.PN ---
Subjective - Date & Time of Evaluation Date of Evaluation: 11/30/17 Time of Evaluation: 22:52 - Subjective Subjective: POD#1 s/p left thoracostomy tube insertion.chest tube draining serosanguineous drainage. c/o pain at the site of the chest tube left chest wall Patient received 2 units PRBC with mild increase in hemoglobin.patient for a third unit pending .Afebrile Tachycardic less dyspneic Objective - Vital Signs/Intake and Output Vital Signs (last 24 hours): Temp Pulse Resp BP Pulse Ox 99.4 F 92 H 22 121/70 98 11/30/17 16:00 11/30/17 20:04 11/30/17 20:04 11/30/17 21:31 11/30/17 20:04 Intake and Output: 11/30/17 12/01/17 18:59 06:59 Intake Total 1678 100 Output Total 1830 1200 Balance -152 -1100 - Medications Medications: Current Medications Acetaminophen (Tylenol 325mg Tab) 650 mg PO Q6 PRN PRN Reason: Fever >100.4 F Last Admin: 11/30/17 12:46 Dose: 650 mg Albuterol (Ventolin Hfa 90 Mcg/Actuation (8 G)) 2 puff IH RQ6 PRN PRN Reason: SOB Last Admin: 11/18/17 08:19 Dose: 2 puff Albuterol/Ipratropium (Duoneb 3 Mg/0.5 Mg (3 Ml) Ud) 3 ml INH RQ6 ZANE Last Admin: 11/30/17 19:46 Dose: Not Given Aspirin (Ecotrin) 81 mg PO DAILY [facility] Last Admin: 11/30/17 09:46 Dose: 81 mg Enoxaparin Sodium (Lovenox) 40 mg SC DAILY [facility] Last Admin: 11/30/17 11:02 Dose: 40 mg Furosemide (Lasix) 40 mg IVP Q12 ZANE Last Admin: 11/30/17 21:31 Dose: 40 mg Guaifenesin/Dextromethorphan (Robitussin Dm) 15 ml PO Q6H [facility] Last Admin: 11/30/17 17:31 Dose: 15 ml Vancomycin HCl 1,250 mg/ (Sodium Chloride) 250 mls @ 166.6 mls/hr IVPB Q12H [facility] Last Admin: 11/30/17 14:17 Dose: 166.6 mls/hr Azithromycin 500 mg/ Sodium (Chloride) 250 mls @ 167 mls/hr IVPB Q24H ZANE PRN Reason: Protocol Last Admin: 11/30/17 22:45 Dose: 167 mls/hr Piperacillin Sod/Tazobactam Sod (Zosyn 3.375 Gm Iv Premix) 3.375 gm in 50 mls @ 100 mls/hr IVPB Q8H ZANE PRN Reason: Protocol Last Admin: 11/30/17 18:24 Dose: 100 mls/hr Losartan Potassium (Cozaar) 50 mg PO DAILY [facility] Last Admin: 11/30/17 12:03 Dose: 50 mg Metformin HCl (Glucophage Xr) 500 mg PO HS [facility] Last Admin: 11/30/17 21:31 Dose: 500 mg Metoprolol Tartrate (Lopressor) 25 mg PO BID [facility] Last Admin: 11/30/17 17:28 Dose: 25 mg Morphine Sulfate (Morphine) 4 mg IVP Q4 PRN PRN Reason: Pain, moderate (4-7) Pantoprazole Sodium (Protonix Ec Tab) 40 mg PO DAILY [facility] Last Admin: 11/30/17 09:46 Dose: 40 mg Fluticasone/Salmeterol (Advair Diskus 250/50) 1 puff INH RQ12 [facility] Last Admin: 11/30/17 19:45 Dose: Not Given Senna/Docusate Sodium (Senokot S 50 Mg-8.6 Mg) 1 tab PO BID [facility] Last Admin: 11/30/17 17:31 Dose: Not Given - Labs Labs: 11/30/17 03:20 11/30/17 03:20 PT 14.2 SECONDS (9.7-12.2) H 11/29/17 14:41 INR 1.3 11/29/17 14:41 APTT 19 SECONDS (21-34) L 11/29/17 14:41 - Constitutional Appears: No Acute Distress - Head Exam Head Exam: NORMAL INSPECTION - Eye Exam Eye Exam: EOMI, PERRL - ENT Exam ENT Exam: Normal Oropharynx - Neck Exam Neck Exam: Normal Inspection - Respiratory Exam Respiratory Exam: Decreased Breath Sounds (left side with left chest tube in place draining serosanguineous drainage.) - Cardiovascular Exam Cardiovascular Exam: Tachycardia, REGULAR RHYTHM, +S1, +S2 - GI/Abdominal Exam GI & Abdominal Exam: Soft, Tenderness (mild tenderness to palpation left lateral abdominal wall.), Normal Bowel Sounds - Extremities Exam Extremities Exam: Pedal Edema. absent: Calf Tenderness - Neurological Exam Neurological Exam: Awake, CN II-XII Intact, Oriented x3 - Psychiatric Exam Psychiatric exam: Normal Mood - Skin Skin Exam: Normal Color, Warm Assessment and Plan (1) Pneumonia Assessment & Plan: S/P LEFT THORACOSTOMY / CHEST -TUBE 11/29/17. -PLEURAL FLUID NEGATIVE GROWTH SO FAR. -PLEURAL FLUID BLOODY, wbc 1223, 84% NEUTROPHILS, 14% LYMPHS RBCS [id number]. CONTINUE IV ZOSYN 3.375 EVERY 8 HOURLY 11/15/17 CONTINUE IV VANCOMYCIN 1250 MG iv EVERY 12 HOURLY FOR mrsa STREP COVERAGE . CONTINUE IV ZITHROMAX 500 MG iv PIGGYBACK ONCE A DAY DAILY.11/23/17. FOLLOW-UP PLEURAL FLUID CYTOLOGY, afb SMEARS, FUNGAL SMEARS. cHEST TUBE CARE PER SURGERY. F/U CT CHEST-POSTOPERATIVE STATUS POST CHEST TUBE. WILL DISCUSSED WITH PULMONARY/REFUSE AND RECYCLING WORKER AND SURGERY. Status: Acute (2) Left upper quadrant abdominal swelling Assessment & Plan: SOURCE OF INTRA-ABDOMINAL COLLECTION AND CELLULITIS NOT CLEAR. WILL DISCUSSED WITH SURGERY. fOLLOW-UP CT OF THE ABDOMEN TO EVALUATE INTRA-ABDOMINAL WALL COLLECTION. Status: Acute (3) Bronchitis Status: Acute (4) Morbid obesity Status: Acute
[2017-12-01] MEDS: Piperacill/Tazo 3.375gm in Dex 3.375 GM/50 ML BAG IVPB SCH ×3 (01:24→17:27)
[2017-12-01] MEDS: guaiFENesin DM 100 mg-10 mg/5 ml UD PO SCH ×4 (01:25→17:24)
[2017-12-01] MEDS: Albuterol-Ipratrop 3 mg / 0.5 (3 ml) UD INH SCH ×4 (01:47→19:25)
[2017-12-01] MEDS: Morphine 4 MG/ML VIAL IVP PRN ×4 (01:54→14:19)
[2017-12-01 06:31] LABS: BASO # 0.2 K/uL (0.0-0.2); BASO % 1.5 % (0.0-2.0); EOS # 0.2 K/uL (0.0-0.7); EOS % 1.5 % (0.0-4.0); HEMOGLOBIN 9.8 g/dL (12.0-18.0); LYMPH # 2.2 K/uL (1.0-4.3); LYMPH % 18.8 % (20.0-40.0); MEAN CELL VOLUME 82.1 fL (80.0-94.0); MEAN CORPUSCULAR HGB CONC 32.9 g/dL (33.0-37.0); MEAN PLATELET VOLUME 7.8 fL (7.2-11.7); MONO # 1.3 K/uL (0.0-0.8); MONO % 11.1 % (0.0-10.0); NEUT # 7.8 K/uL (1.8-7.0); NEUT % 67.1 % (50.0-75.0); RBC 3.64 Mil/uL (4.40-5.90); RED CELL DISTRIBUTION WIDTH 15.7 % (11.5-14.5); WHITE BLOOD COUNT 11.6 K/uL (4.8-10.8)
[2017-12-01 06:36] LABS: ALB/GLOB RATIO 0.9 (1.0-2.1); ALBUMIN 2.8 g/dL (3.5-5.0); ALT/SGPT 39 U/L (21-72); AST/SGOT 33 U/L (17-59); BLOOD UREA NITROGEN 9 mg/dL (9-20); CALCIUM 7.5 mg/dl (8.6-10.4); GFR AFRICAN-AMERICAN > 60; GFR NON-AFRICAN AMERICAN > 60
[2017-12-01] MEDS: Fluticasone-Salmeterol 250-50mcg Diskus INH SCH ×2 (07:25→19:24)
--- NOTE | 2017-12-01 07:57 | RAD ---
Chest x-ray single frontal view History: Chest tube. Comparison: 11/30/2017 Findings: Chest tube projects over the left sam thorax. Moderate to severe venous congestion with prominent bibasilar airspace opacities and small bilateral pleural effusions. Right hilar prominence. Elevated right hemidiaphragm. Cardiomegaly. Degenerative changes in the spine and shoulders. Impression: Chest tube projects over the left sam thorax. Moderate to severe venous congestion with prominent bibasilar airspace opacities and small bilateral pleural effusions. Right hilar prominence. Elevated right hemidiaphragm. Cardiomegaly.
[2017-12-01] MEDS: Enoxaparin 40 mg Syringe SC SCH (09:58)
[2017-12-01] MEDS: Docusate-Senna 50 mg-8.6 mg Tab PO SCH ×2 (09:59→17:24)
--- NOTE | 2017-12-01 10:56 | CP.CCUPN ---
<Jessica Brown - Last Filed: 12/01/17 14:36> CCU Subjective - Physician Review Subjective (Free Text): 12/01/17 10:54 Patient seen and examined at bedside. Per nursing no acute events overnight. Patient with temp of 102.3, Tylenol given. Repeat blood cultures were drawn yesterday. Currently patient is out of bed to chair. Breathing is improved. Offers no complaints at this time. Denies headaches, dizziness, cp, palpitations , abdominal pain, urinary symptoms. CT chest with contrast was ordered for suspicion of malignancy. Patient noted to have area on left chest wall below area of chest tube that appears infectious/inflammatory in nature with noted pockets of air, General surgery called to evaluate the patient, awaiting further recommendations. CCU Objective - Vital Signs / Intake & Output Vital Signs (Last 4 hours): Vital Signs Temp Pulse Resp BP Pulse Ox 12/01/17 10:04 94 H 16 125/76 95 12/01/17 10:00 95 H 16 98 12/01/17 09:59 127/72 12/01/17 09:58 98 H 13 127/72 98 12/01/17 09:04 99 H 19 129/66 96 12/01/17 09:00 101 H 20 96 12/01/17 08:39 99.2 F 12/01/17 08:04 109 H 23 136/68 91 L 12/01/17 08:00 102.3 F H 105 H 26 H 97 12/01/17 07:39 102.3 F H 12/01/17 07:05 105 H 25 H 135/67 90 L 12/01/17 07:00 105 H 23 86 L Intake and Output (Last 8hrs): Intake & Output 11/30/17 12/01/17 12/01/17 22:59 06:59 14:59 Intake Total 500 1230 400 Output Total 1500 1100 Balance -1000 130 400 Weight 220.446 kg Intake: Intake, IV Amount 550 50 Right PICC 550 50 Oral 500 680 350 Output: Chest Tube Drainage 300 200 Left 300 200 Urine 1200 900 Urine, Voided 1200 900 Other: # Voids Urine, Voided 0 # Bowel Movements 0 - Medications Active Medications: Active Medications Generic Name Dose Route Start Last Admin Trade Name Freq PRN Reason Stop Dose Admin Acetaminophen 650 mg 11/30/17 12:34 12/01/17 07:39 Tylenol 325mg Tab PO 650 mg Q6 PRN Administration Fever >100.4 F Albuterol 2 puff 11/17/17 02:00 11/18/17 08:19 Ventolin Hfa 90 Mcg/Actuation (8 G) IH 2 puff RQ6 PRN Administration SOB Albuterol/Ipratropium 3 ml 11/27/17 14:00 12/01/17 07:24 Duoneb 3 Mg/0.5 Mg (3 Ml) Ud INH 3 ml RQ6 ZANE Administration Aspirin 81 mg 11/24/17 10:00 12/01/17 09:59 Ecotrin PO 81 mg DAILY ZANE Administration Enoxaparin Sodium 40 mg 11/30/17 10:45 12/01/17 09:58 Lovenox SC 40 mg DAILY ZANE Administration Guaifenesin/Dextromethorphan 15 ml 11/21/17 12:04 12/01/17 07:22 Robitussin Dm PO 15 ml Q6H ZANE Administration Vancomycin HCl 1,250 mg/ 250 mls @ 166.6 mls/hr 11/16/17 03:00 12/01/17 02:15 Sodium Chloride IVPB 166.6 mls/hr Q12H ZANE Administration Azithromycin 500 mg/ Sodium 250 mls @ 167 mls/hr 11/26/17 23:00 11/30/17 22: 45 Chloride IVPB 167 mls/hr Q24H ZANE Administration Protocol Piperacillin Sod/Tazobactam Sod 3.375 gm in 50 mls @ 100 mls/hr 11/27/17 01: 45 12/01/17 09:58 Zosyn 3.375 Gm Iv Premix IVPB 100 mls/hr Q8H ZANE Administration Protocol Losartan Potassium 50 mg 11/15/17 10:00 12/01/17 09:59 Cozaar PO 50 mg DAILY ZANE Administration Metformin HCl 500 mg 11/23/17 22:00 11/30/17 21:31 Glucophage Xr PO 500 mg HS ZANE Administration Metoprolol Tartrate 25 mg 11/27/17 10:15 12/01/17 09:59 Lopressor PO 25 mg BID ZANE Administration Morphine Sulfate 4 mg 11/30/17 22:00 12/01/17 10:16 Morphine IVP 4 mg Q4 PRN Administration Pain, moderate (4-7) Fluticasone/Salmeterol 1 puff 11/15/17 08:00 12/01/17 07:25 Advair Diskus 250/50 INH 1 puff RQ12 ZANE Administration Senna/Docusate Sodium 1 tab 11/23/17 18:00 12/01/17 09:59 Senokot S 50 Mg-8.6 Mg PO 1 tab BID ZANE Administration - Patient Studies Lab Studies: Microbiology Studies 11/29/17 Unknown Anaerobic Culture - Final Pleural Fluid NO ANAEROBES ISOLATED. 11/29/17 17:19 Gram Stain - Final Pleural Fluid Body Fluid Culture - Preliminary NO GROWTH AFTER 2 DAYS 11/29/17 16:20 MRSA Culture (Admit) - Final Naris MRSA NOT DETECTED 11/28/17 08:47 Mycobacterial Culture - Preliminary Other: Please Indicate 11/29/17 17:20 Fungal Culture - Preliminary Pleural Fluid Lab Studies 12/01/17 12/01/17 12/01/17 Range/Units 07:17 06:19 06:16 WBC 11.6 H (4.8-10.8) K/uL RBC 3.64 L (4.40-5.90) Mil/uL Hgb 9.8 L (12.0-18.0) g/dL Hct 29.9 L (35.0-51.0) % MCV 82.1 (80.0-94.0) fL MCH 27.0 (27.0-31.0) pg MCHC 32.9 L (33.0-37.0) g/dL RDW 15.7 H (11.5-14.5) % Plt Count 324 (130-400) K/uL MPV 7.8 (7.2-11.7) fL Neut % (Auto) 67.1 (50.0-75.0) % Lymph % (Auto) 18.8 L (20.0-40.0) % [place] % (Auto) 11.1 H (0.0-10.0) % Eos % (Auto) 1.5 (0.0-4.0) % Baso % (Auto) 1.5 (0.0-2.0) % Neut # (Auto) 7.8 H (1.8-7.0) K/uL Lymph # (Auto) 2.2 (1.0-4.3) K/uL [place] # (Auto) 1.3 H (0.0-0.8) K/uL Eos # (Auto) 0.2 (0.0-0.7) K/uL Baso # (Auto) 0.2 (0.0-0.2) K/uL Sodium 133 (132-148) mmol/L Potassium 3.7 (3.6-5.2) mmol/L Chloride 96 L (98-107) mmol/L Carbon Dioxide 30 (22-30) mmol/L Anion Gap 12 (10-20) BUN 9 (9-20) mg/dL Creatinine 1.1 (0.8-1.5) mg/dL Est GFR ( Amer) > 60 Est GFR (Non-Af Amer) > 60 POC Glucose (mg/dL) 101 (65-110) mg/dL Random Glucose 100 (75-110) mg/dL Calcium 7.5 L (8.6-10.4) mg/dl Phosphorus 2.8 (2.5-4.5) mg/dL Magnesium 1.9 (1.6-2.3) mg/dL Total Bilirubin 1.1 (0.2-1.3) mg/dL AST 33 (17-59) U/L ALT 39 (21-72) U/L Alkaline Phosphatase 56 (38-126) U/L Total Protein 6.0 L (6.3-8.3) g/dL Albumin 2.8 L (3.5-5.0) g/dL Globulin 3.2 (2.2-3.9) gm/dL Albumin/Globulin Ratio 0.9 L (1.0-2.1) 11/30/17 11/30/17 11/30/17 Range/Units 21:05 16:06 12:00 WBC (4.8-10.8) K/uL RBC (4.40-5.90) Mil/uL Hgb (12.0-18.0) g/dL Hct (35.0-51.0) % MCV (80.0-94.0) fL MCH (27.0-31.0) pg MCHC (33.0-37.0) g/dL RDW (11.5-14.5) % Plt Count (130-400) K/uL MPV (7.2-11.7) fL Neut % (Auto) (50.0-75.0) % Lymph % (Auto) (20.0-40.0) % [place] % (Auto) (0.0-10.0) % Eos % (Auto) (0.0-4.0) % Baso % (Auto) (0.0-2.0) % Neut # (Auto) (1.8-7.0) K/uL Lymph # (Auto) (1.0-4.3) K/uL [place] # (Auto) (0.0-0.8) K/uL Eos # (Auto) (0.0-0.7) K/uL Baso # (Auto) (0.0-0.2) K/uL Sodium (132-148) mmol/L Potassium (3.6-5.2) mmol/L Chloride (98-107) mmol/L Carbon Dioxide (22-30) mmol/L Anion Gap (10-20) BUN (9-20) mg/dL Creatinine (0.8-1.5) mg/dL Est GFR ( Amer) Est GFR (Non-Af Amer) POC Glucose (mg/dL) 110 101 162 H (65-110) mg/dL Random Glucose (75-110) mg/dL Calcium (8.6-10.4) mg/dl Phosphorus (2.5-4.5) mg/dL Magnesium (1.6-2.3) mg/dL Total Bilirubin (0.2-1.3) mg/dL AST (17-59) U/L ALT (21-72) U/L Alkaline Phosphatase (38-126) U/L Total Protein (6.3-8.3) g/dL Albumin (3.5-5.0) g/dL Globulin (2.2-3.9) gm/dL Albumin/Globulin Ratio (1.0-2.1) Laboratory Results - last 24 hr 11/30/17 11/30/17 11/30/17 12:00 16:06 21:05 WBC RBC Hgb Hct MCV MCH MCHC RDW Plt Count MPV Neut % (Auto) Lymph % (Auto) [place] % (Auto) Eos % (Auto) Baso % (Auto) Neut # (Auto) Lymph # (Auto) [place] # (Auto) Eos # (Auto) Baso # (Auto) Sodium Potassium Chloride Carbon Dioxide Anion Gap BUN Creatinine Est GFR ( Amer) Est GFR (Non-Af Amer) POC Glucose (mg/dL) 162 H 101 110 Random Glucose Calcium Phosphorus Magnesium Total Bilirubin AST ALT Alkaline Phosphatase Total Protein Albumin Globulin Albumin/Globulin Ratio 12/01/17 12/01/17 12/01/17 06:16 06:19 07:17 WBC 11.6 H RBC 3.64 L Hgb 9.8 L Hct 29.9 L MCV 82.1 MCH 27.0 MCHC 32.9 L RDW 15.7 H Plt Count 324 MPV 7.8 Neut % (Auto) 67.1 Lymph % (Auto) 18.8 L [place] % (Auto) 11.1 H Eos % (Auto) 1.5 Baso % (Auto) 1.5 Neut # (Auto) 7.8 H Lymph # (Auto) 2.2 [place] # (Auto) 1.3 H Eos # (Auto) 0.2 Baso # (Auto) 0.2 Sodium 133 Potassium 3.7 Chloride 96 L Carbon Dioxide 30 Anion Gap 12 BUN 9 Creatinine 1.1 Est GFR ( Amer) > 60 Est GFR (Non-Af Amer) > 60 POC Glucose (mg/dL) 101 Random Glucose 100 Calcium 7.5 L Phosphorus 2.8 Magnesium 1.9 Total Bilirubin 1.1 AST 33 ALT 39 Alkaline Phosphatase 56 Total Protein 6.0 L Albumin 2.8 L Globulin 3.2 Albumin/Globulin Ratio 0.9 L Fingerstick Blood Sugar Results: 101 Critical Care Progress Note - Nutrition Nutrition: Nutrition Category Date Time Status Heart Healthy Diet [DIET] Diets 11/29/17 Dinner Active Assessment/Plan - Assessment and Plan (Free Text) Assessment: Patient is a 42 year old male with past medical history of morbid obesity and TB presented with recurrent left sided pleural effusion, s/p chest tube placement in the OR where approximately 5 liters of bloody pleural fluid was drained. Now being admitted to the ICU for closer monitoring. Neurology: -Patient is AAOx3 -Stable, afebrile Cardiology: -Patient with a history of HTN -Will continue Cozaar 50mg po daily -Metoprolol 25mg PO BID -Continue Aspirin 81mg PO daily Respiratory: -Sputum for AFB negative x 3 -Patient with left sided chest tube for recurrent pleural effusion POD#1 -4.5-5L of bloody pleural fluid drained, fluid analysis still pending -Encourage ISS use -CT chest with contrast: Status post chest tube placement left pleural space. Near complete resolution of left pleural effusion. Substantial re-expansion of the left lung. Residual consolidative changes in the left lower lobe and left upper lobe. -CXR 12/01: chest tube projects over the left hemithorax, moderate to severe venous congestion with prominent bibasilar airspace opacities and small bilateral pleural effusions. Right hilar prominence. Elevated right hemidiaphragm (see full report) -CXR 11/30: Reproduced extensive left hemithoracic opacification - near complete. Since prior exam, patchy minimal increased aeration of the left mid lung -Lasix discontinued -Robitussin 15ml Q6H for cough -Morphine 4mg Q4H prn pain -Duonebs Q6H ZANE, Continue Advair 1 puff Q12H -CT surgeon Dr Elizabeth consulted, help appreciated Hematology -Hgb 9.8 s/p 3 units of PRBCs -Approximately 5L of bloody pleural fluid drained in the OR -F/U serial CBCs GI: -No acute issues at this time Endocrine: -Patient with history of Impaired Glucose Tolerance, Hgba1c 6.0 -Continue Metformin 500mg QHS, accuchecks Infectious Disease: -CT chest with contrast was ordered for suspicion of malignancy. Patient noted to have area on left chest wall that looks infectious/inflammatory in nature with noted pockets of air, General surgery called to evaluate the patient and imaging, awaiting further recommendations -Leukocytosis 11.6 at this time -Currently being treated for Pneumonia -Legionella and mycoplasma negative -Antibiotics: Zosyn 3.375mg IV Q8H, Vancomycin 1250mg Q12H , started Flagyl 500mg Q8H, discontinued Azithromycin 500mg IV daily, -Infectious Disease on consult, Dr Rome, help appreciated GI/DVT ppx: -GI ppx not indicated at this time -SCDs, Lovenox 40mg SC daily <Ren Escoto - Last Filed: 12/01/17 14:40> CCU Objective - Vital Signs / Intake & Output Vital Signs (Last 4 hours): Vital Signs Temp Pulse Resp BP Pulse Ox 03/16/18 14:04 88 17 124/63 96 12/01/17 14:00 88 18 96 12/01/17 13:04 90 22 107/74 97 12/01/17 13:00 86 14 98 12/01/17 12:04 87 12 111/69 98 12/01/17 12:00 98.5 F 88 16 98 12/01/17 11:04 90 14 127/68 95 12/01/17 11:00 88 16 96 Intake and Output (Last 8hrs): Intake & Output 11/30/17 12/01/17 12/01/17 22:59 06:59 14:59 Intake Total 500 1230 500 Output Total 1500 1100 Balance -1000 130 500 Weight 486 lb Intake: Intake, IV Amount 550 150 Right PICC 550 150 Oral 500 680 350 Output: Chest Tube Drainage 300 200 Left 300 200 Urine 1200 900 Urine, Voided 1200 900 Other: # Voids Urine, Voided 0 # Bowel Movements 0 - Medications Active Medications: Active Medications Generic Name Dose Route Start Last Admin Trade Name Freq PRN Reason Stop Dose Admin Acetaminophen 650 mg 11/30/17 12:34 12/01/17 07:39 Tylenol 325mg Tab PO 650 mg Q6 PRN Administration Fever >100.4 F Albuterol 2 puff 11/17/17 02:00 11/18/17 08:19 Ventolin Hfa 90 Mcg/Actuation (8 G) IH 2 puff RQ6 PRN Administration SOB Albuterol/Ipratropium 3 ml 11/27/17 14:00 12/01/17 14:09 Duoneb 3 Mg/0.5 Mg (3 Ml) Ud INH 3 ml RQ6 ZANE Administration Aspirin 81 mg 11/24/17 10:00 12/01/17 09:59 Ecotrin PO 81 mg DAILY ZANE Administration Enoxaparin Sodium 40 mg 11/30/17 10:45 12/01/17 09:58 Lovenox SC 40 mg DAILY ZANE Administration Guaifenesin/Dextromethorphan 15 ml 11/21/17 12:04 12/01/17 12:18 Robitussin Dm PO Not Given Q6H ZANE Vancomycin HCl 1,250 mg/ 250 mls @ 166.6 mls/hr 11/16/17 03:00 12/01/17 14:19 Sodium Chloride IVPB 166.6 mls/hr Q12H ZANE Administration Piperacillin Sod/Tazobactam Sod 3.375 gm in 50 mls @ 100 mls/hr 11/27/17 01: 45 12/01/17 09:58 Zosyn 3.375 Gm Iv Premix IVPB 100 mls/hr Q8H ZANE Administration Protocol Metronidazole 500 mg in 100 mls @ 100 mls/hr 12/01/17 14:00 12/01/17 13:46 Flagyl IVPB 100 mls/hr Q8 ZANE Administration Protocol Losartan Potassium 50 mg 11/15/17 10:00 12/01/17 09:59 Cozaar PO 50 mg DAILY ZANE Administration Metformin HCl 500 mg 11/23/17 22:00 11/30/17 21:31 Glucophage Xr PO 500 mg HS ZANE Administration Metoprolol Tartrate 25 mg 11/27/17 10:15 12/01/17 09:59 Lopressor PO 25 mg BID ZANE Administration Morphine Sulfate 4 mg 11/30/17 22:00 12/01/17 14:19 Morphine IVP 4 mg Q4 PRN Administration Pain, moderate (4-7) Fluticasone/Salmeterol 1 puff 11/15/17 08:00 12/01/17 07:25 Advair Diskus 250/50 INH 1 puff RQ12 ZANE Administration Senna/Docusate Sodium 1 tab 11/23/17 18:00 12/01/17 09:59 Senokot S 50 Mg-8.6 Mg PO 1 tab BID ZANE Administration - Patient Studies Lab Studies: Microbiology Studies 11/29/17 Unknown Anaerobic Culture - Final Pleural Fluid NO ANAEROBES ISOLATED. 11/29/17 17:19 Gram Stain - Final Pleural Fluid Body Fluid Culture - Preliminary NO GROWTH AFTER 2 DAYS 11/29/17 16:20 MRSA Culture (Admit) - Final Naris MRSA NOT DETECTED 11/28/17 08:47 Mycobacterial Culture - Preliminary Other: Please Indicate 11/29/17 17:20 Fungal Culture - Preliminary Pleural Fluid Lab Studies 12/01/17 12/01/17 12/01/17 Range/Units 11:04 07:17 06:19 WBC 11.6 H (4.8-10.8) K/uL RBC 3.64 L (4.40-5.90) Mil/uL Hgb 9.8 L (12.0-18.0) g/dL Hct 29.9 L (35.0-51.0) % MCV 82.1 (80.0-94.0) fL MCH 27.0 (27.0-31.0) pg MCHC 32.9 L (33.0-37.0) g/dL RDW 15.7 H (11.5-14.5) % Plt Count 324 (130-400) K/uL MPV 7.8 (7.2-11.7) fL Neut % (Auto) 67.1 (50.0-75.0) % Lymph % (Auto) 18.8 L (20.0-40.0) % [place] % (Auto) 11.1 H (0.0-10.0) % Eos % (Auto) 1.5 (0.0-4.0) % Baso % (Auto) 1.5 (0.0-2.0) % Neut # (Auto) 7.8 H (1.8-7.0) K/uL Lymph # (Auto) 2.2 (1.0-4.3) K/uL [place] # (Auto) 1.3 H (0.0-0.8) K/uL Eos # (Auto) 0.2 (0.0-0.7) K/uL Baso # (Auto) 0.2 (0.0-0.2) K/uL Sodium (132-148) mmol/L Potassium (3.6-5.2) mmol/L Chloride (98-107) mmol/L Carbon Dioxide (22-30) mmol/L Anion Gap (10-20) BUN (9-20) mg/dL Creatinine (0.8-1.5) mg/dL Est GFR ( Amer) Est GFR (Non-Af Amer) POC Glucose (mg/dL) 101 101 (65-110) mg/dL Random Glucose (75-110) mg/dL Calcium (8.6-10.4) mg/dl Phosphorus (2.5-4.5) mg/dL Magnesium (1.6-2.3) mg/dL Total Bilirubin (0.2-1.3) mg/dL AST (17-59) U/L ALT (21-72) U/L Alkaline Phosphatase (38-126) U/L Total Protein (6.3-8.3) g/dL Albumin (3.5-5.0) g/dL Globulin (2.2-3.9) gm/dL Albumin/Globulin Ratio (1.0-2.1) Blood Type Antibody Screen 12/01/17 11/30/17 11/30/17 Range/Units 06:16 21:05 16:06 WBC (4.8-10.8) K/uL RBC (4.40-5.90) Mil/uL Hgb (12.0-18.0) g/dL Hct (35.0-51.0) % MCV (80.0-94.0) fL MCH (27.0-31.0) pg MCHC (33.0-37.0) g/dL RDW (11.5-14.5) % Plt Count (130-400) K/uL MPV (7.2-11.7) fL Neut % (Auto) (50.0-75.0) % Lymph % (Auto) (20.0-40.0) % [place] % (Auto) (0.0-10.0) % Eos % (Auto) (0.0-4.0) % Baso % (Auto) (0.0-2.0) % Neut # (Auto) (1.8-7.0) K/uL Lymph # (Auto) (1.0-4.3) K/uL [place] # (Auto) (0.0-0.8) K/uL Eos # (Auto) (0.0-0.7) K/uL Baso # (Auto) (0.0-0.2) K/uL Sodium 133 (132-148) mmol/L Potassium 3.7 (3.6-5.2) mmol/L Chloride 96 L (98-107) mmol/L Carbon Dioxide 30 (22-30) mmol/L Anion Gap 12 (10-20) BUN 9 (9-20) mg/dL Creatinine 1.1 (0.8-1.5) mg/dL Est GFR ( Amer) > 60 Est GFR (Non-Af Amer) > 60 POC Glucose (mg/dL) 110 101 (65-110) mg/dL Random Glucose 100 (75-110) mg/dL Calcium 7.5 L (8.6-10.4) mg/dl Phosphorus 2.8 (2.5-4.5) mg/dL Magnesium 1.9 (1.6-2.3) mg/dL Total Bilirubin 1.1 (0.2-1.3) mg/dL AST 33 (17-59) U/L ALT 39 (21-72) U/L Alkaline Phosphatase 56 (38-126) U/L Total Protein 6.0 L (6.3-8.3) g/dL Albumin 2.8 L (3.5-5.0) g/dL Globulin 3.2 (2.2-3.9) gm/dL Albumin/Globulin Ratio 0.9 L (1.0-2.1) Blood Type Antibody Screen 11/29/17 Range/Units 14:00 WBC (4.8-10.8) K/uL RBC (4.40-5.90) Mil/uL Hgb (12.0-18.0) g/dL Hct (35.0-51.0) % MCV (80.0-94.0) fL MCH (27.0-31.0) pg MCHC (33.0-37.0) g/dL RDW (11.5-14.5) % Plt Count (130-400) K/uL MPV (7.2-11.7) fL Neut % (Auto) (50.0-75.0) % Lymph % (Auto) (20.0-40.0) % [place] % (Auto) (0.0-10.0) % Eos % (Auto) (0.0-4.0) % Baso % (Auto) (0.0-2.0) % Neut # (Auto) (1.8-7.0) K/uL Lymph # (Auto) (1.0-4.3) K/uL [place] # (Auto) (0.0-0.8) K/uL Eos # (Auto) (0.0-0.7) K/uL Baso # (Auto) (0.0-0.2) K/uL Sodium (132-148) mmol/L Potassium (3.6-5.2) mmol/L Chloride (98-107) mmol/L Carbon Dioxide (22-30) mmol/L Anion Gap (10-20) BUN (9-20) mg/dL Creatinine (0.8-1.5) mg/dL Est GFR ( Amer) Est GFR (Non-Af Amer) POC Glucose (mg/dL) (65-110) mg/dL Random Glucose (75-110) mg/dL Calcium (8.6-10.4) mg/dl Phosphorus (2.5-4.5) mg/dL Magnesium (1.6-2.3) mg/dL Total Bilirubin (0.2-1.3) mg/dL AST (17-59) U/L ALT (21-72) U/L Alkaline Phosphatase (38-126) U/L Total Protein (6.3-8.3) g/dL Albumin (3.5-5.0) g/dL Globulin (2.2-3.9) gm/dL Albumin/Globulin Ratio (1.0-2.1) Blood Type O POSITIVE Antibody Screen Negative Laboratory Results - last 24 hr 11/29/17 11/30/17 11/30/17 14:00 16:06 21:05 WBC RBC Hgb Hct MCV MCH MCHC RDW Plt Count MPV Neut % (Auto) Lymph % (Auto) [place] % (Auto) Eos % (Auto) Baso % (Auto) Neut # (Auto) Lymph # (Auto) [place] # (Auto) Eos # (Auto) Baso # (Auto) Sodium Potassium Chloride Carbon Dioxide Anion Gap BUN Creatinine Est GFR ( Amer) Est GFR (Non-Af Amer) POC Glucose (mg/dL) 101 110 Random Glucose Calcium Phosphorus Magnesium Total Bilirubin AST ALT Alkaline Phosphatase Total Protein Albumin Globulin Albumin/Globulin Ratio Blood Type O POSITIVE Antibody Screen Negative 12/01/17 12/01/17 12/01/17 06:16 06:19 07:17 WBC 11.6 H RBC 3.64 L Hgb 9.8 L Hct 29.9 L MCV 82.1 MCH 27.0 MCHC 32.9 L RDW 15.7 H Plt Count 324 MPV 7.8 Neut % (Auto) 67.1 Lymph % (Auto) 18.8 L [place] % (Auto) 11.1 H Eos % (Auto) 1.5 Baso % (Auto) 1.5 Neut # (Auto) 7.8 H Lymph # (Auto) 2.2 [place] # (Auto) 1.3 H Eos # (Auto) 0.2 Baso # (Auto) 0.2 Sodium 133 Potassium 3.7 Chloride 96 L Carbon Dioxide 30 Anion Gap 12 BUN 9 Creatinine 1.1 Est GFR ( Amer) > 60 Est GFR (Non-Af Amer) > 60 POC Glucose (mg/dL) 101 Random Glucose 100 Calcium 7.5 L Phosphorus 2.8 Magnesium 1.9 Total Bilirubin 1.1 AST 33 ALT 39 Alkaline Phosphatase 56 Total Protein 6.0 L Albumin 2.8 L Globulin 3.2 Albumin/Globulin Ratio 0.9 L Blood Type Antibody Screen 12/01/17 11:04 WBC RBC Hgb Hct MCV MCH MCHC RDW Plt Count MPV Neut % (Auto) Lymph % (Auto) [place] % (Auto) Eos % (Auto) Baso % (Auto) Neut # (Auto) Lymph # (Auto) [place] # (Auto) Eos # (Auto) Baso # (Auto) Sodium Potassium Chloride Carbon Dioxide Anion Gap BUN Creatinine Est GFR ( Amer) Est GFR (Non-Af Amer) POC Glucose (mg/dL) 101 Random Glucose Calcium Phosphorus Magnesium Total Bilirubin AST ALT Alkaline Phosphatase Total Protein Albumin Globulin Albumin/Globulin Ratio Blood Type Antibody Screen Critical Care Progress Note - Nutrition Nutrition: Nutrition Category Date Time Status NPO Diet [DIET] Diets 12/01/17 Lunch Active Attending/Attestation - Attestation I have personally seen and examined this patient.: Yes I have fully participated in the care of the patient.: Yes I have reviewed all pertinent clinical information: Yes Notes (Text): 12/01/17 14:39 I have seen and examined the patient. Medical records, lab studies, and imaging were reviewed by me and a management plan was formulated on multidisciplinary rounds with resident Dr. Brown. I agree with their documented assessment and plan. 42 year old male with past medical history of morbid obesity and TB, HTN. p/w left pleural effusion. Neuro: alert and oriented x 3 Pulm: chest tube draining well. CV: hemodynamically stable. HTN controlled with metoprolol and cozaar. Hem: anemia stabilized s/p transfusion (3 units PRBC) Renal: no acute issues Endo: no acute issues GI: regular diet, NPO for surgery. ID: possible anaerobic infection from left later abdomen/chest wall, seen on CT abdomen, possible source of pleural effusion. Scheduled for OR for I&D, cultures to be sent. Changed abx, Flagyl IV, Zosyn and Vancomycin. DVT proph - lovenox GI proph - not currently indicated Code status - full code Critical Care Time spent 35 minutes Multi-disciplinary rounds were performed with house staff, nursing, speech therapy, respiratory therapy, pharmacy and nutrition with integrated input from the primary team/attending and other consulting services. The documented time is cumulative and includes review of patient data/exams/labs/chart review and examination of the patient on rounds and throughout the day; time is exclusive of any procedures or teaching time.
--- NOTE | 2017-12-01 13:45 | CP.PCM.PN ---
Subjective - Date & Time of Evaluation Date of Evaluation: 12/01/17 Time of Evaluation: 11:20 - Subjective Subjective: clinically same Objective - Vital Signs/Intake and Output Vital Signs (last 24 hours): Temp Pulse Resp BP Pulse Ox 98.5 F 87 12 111/69 98 12/01/17 12:00 12/01/17 12:04 12/01/17 12:04 12/01/17 12:04 12/01/17 12:04 Intake and Output: 12/01/17 12/01/17 06:59 18:59 Intake Total 1330 400 Output Total 2300 Balance -970 400 - Medications Medications: Current Medications Acetaminophen (Tylenol 325mg Tab) 650 mg PO Q6 PRN PRN Reason: Fever >100.4 F Last Admin: 12/01/17 07:39 Dose: 650 mg Albuterol (Ventolin Hfa 90 Mcg/Actuation (8 G)) 2 puff IH RQ6 PRN PRN Reason: SOB Last Admin: 11/18/17 08:19 Dose: 2 puff Albuterol/Ipratropium (Duoneb 3 Mg/0.5 Mg (3 Ml) Ud) 3 ml INH RQ6 ZANE Last Admin: 12/01/17 07:24 Dose: 3 ml Aspirin (Ecotrin) 81 mg PO DAILY ZANE Last Admin: 12/01/17 09:59 Dose: 81 mg Enoxaparin Sodium (Lovenox) 40 mg SC DAILY ZANE Last Admin: 12/01/17 09:58 Dose: 40 mg Guaifenesin/Dextromethorphan (Robitussin Dm) 15 ml PO Q6H ZANE Last Admin: 12/01/17 12:18 Dose: Not Given Vancomycin HCl 1,250 mg/ (Sodium Chloride) 250 mls @ 166.6 mls/hr IVPB Q12H ZANE Last Admin: 12/01/17 02:15 Dose: 166.6 mls/hr Piperacillin Sod/Tazobactam Sod (Zosyn 3.375 Gm Iv Premix) 3.375 gm in 50 mls @ 100 mls/hr IVPB Q8H ZANE PRN Reason: Protocol Last Admin: 12/01/17 09:58 Dose: 100 mls/hr Metronidazole (Flagyl) 500 mg in 100 mls @ 100 mls/hr IVPB Q8 ZANE PRN Reason: Protocol Losartan Potassium (Cozaar) 50 mg PO DAILY [facility] Last Admin: 12/01/17 09:59 Dose: 50 mg Metformin HCl (Glucophage Xr) 500 mg PO HS [facility] Last Admin: 11/30/17 21:31 Dose: 500 mg Metoprolol Tartrate (Lopressor) 25 mg PO BID [facility] Last Admin: 12/01/17 09:59 Dose: 25 mg Morphine Sulfate (Morphine) 4 mg IVP Q4 PRN PRN Reason: Pain, moderate (4-7) Last Admin: 12/01/17 10:16 Dose: 4 mg Fluticasone/Salmeterol (Advair Diskus 250/50) 1 puff INH RQ12 [facility] Last Admin: 12/01/17 07:25 Dose: 1 puff Senna/Docusate Sodium (Senokot S 50 Mg-8.6 Mg) 1 tab PO BID [facility] Last Admin: 12/01/17 09:59 Dose: 1 tab - Labs Labs: 12/01/17 06:19 12/01/17 06:16 PT 14.2 SECONDS (9.7-12.2) H 11/29/17 14:41 INR 1.3 11/29/17 14:41 APTT 19 SECONDS (21-34) L 11/29/17 14:41 - Constitutional Appears: Well - Head Exam Head Exam: ATRAUMATIC, NORMAL INSPECTION, NORMOCEPHALIC - Eye Exam Eye Exam: EOMI, Normal appearance, PERRL Pupil Exam: NORMAL ACCOMODATION, PERRL - ENT Exam ENT Exam: Mucous Membranes Moist, Normal Exam - Neck Exam Neck Exam: Full ROM, Normal Inspection. absent: Lymphadenopathy - Respiratory Exam Respiratory Exam: Decreased Breath Sounds - Cardiovascular Exam Cardiovascular Exam: REGULAR RHYTHM, +S1, +S2 - GI/Abdominal Exam GI & Abdominal Exam: Soft, Diminished Bowel Sounds - Rectal Exam Rectal Exam: Deferred
[2017-12-01] MEDS: metroNIDAZOLE IV 500 mg/100 ml 500 MG/100 ML BAG IVPB SCH ×2 (13:46→21:55)
[2017-12-01] MEDS ORDERED: PREMIXED IV ONE (15:09)
[2017-12-01] MEDS ORDERED: ACETAMINOPHEN IV ONE (15:09)
[2017-12-01] MEDS ORDERED: Propofol 10 mg/ml Inj (20 ML) ONE (18:37)
[2017-12-01] MEDS ORDERED: Succinylcholine Chloride 20 mg/ml Syr (5 ml) IV ONE (18:40)
--- NOTE | 2017-12-01 20:34 | PCM.SURG1 ---
Surgeon's Initial Post Op Note - Surgeon's Notes Surgeon: Dr New Inspector Poising: Dr Ragland PGY3, Dr Arredondo PGY1 Type of Anesthesia: General Endo Pre-Operative Diagnosis: abdominal wall abscess Operative Findings: see report Post-Operative Diagnosis: as above Operation Performed: excision and draniage of left abdominal flank abscess Specimen/Specimens Removed: culture. tissue including abscess cavity and overlying subcutaneous fat and skin Estimated Blood Loss: EBL {In ML}: 50 Blood Products Given: N/A Drains Used: Wound Vac Post-Op Condition: Good Date of Surgery/Procedure: 12/01/17 Time of Surgery/Procedure: 20:33
[2017-12-01] MEDS ORDERED: guaiFENesin DM 200 mg-20 mg/10 ml UD PO STA (21:33)
[2017-12-01] MEDS: Sodium Chloride 0.9% 1,000 ML IV SCH (21:59)
--- NOTE | 2017-12-01 22:51 | PN ---
DATE: 12/01/2017 SUBJECTIVE: The patient is taken to the operating room for incision and drainage of an axillary abscess. His oxygenation is 98% on nasal O2, does not appear to be in any distress. Denies any chest pain. PHYSICAL EXAMINATION: VITAL SIGNS: Blood pressure 139/69, heart rate is 95, respirations 20, temperature 99.2. HEENT: [place] conjunctivae. CHEST: Bilateral rhonchi. HEART: S1 and S2 regular. EXTREMITIES: 1+ pitting edema. LABORATORY DATA: Today's SMA-7 is within normal limits except for chloride of 96. Today's hemoglobin and hematocrit 9.8 and 29.9, white count 11.6, platelet count 324,000. ASSESSMENT: 1. Status post left-sided chest tube placement with removal of 5 liters of serosanguineous fluid yesterday. 2. Morbid obesity. 3. Sleep apnea. 4. Rule out chest wall abscess. RECOMMENDATIONS: Continue current Cozaar 50 once a day, Advair 1 puff twice a day, Flagyl 500 mg intravenously q.8 hours, Lopressor 25 mg twice a day, Lovenox 40 mg subcutaneously once a day, vancomycin at 250 mg q.12 hours, and Zosyn 3.375 gm intravenously q.8 hours. The patient will go for incision and drainage this evening and will be followed in the ICU. Lazaro Omalley MD
--- NOTE | 2017-12-01 23:21 | CP.PCM.PN ---
Subjective - Date & Time of Evaluation Date of Evaluation: 12/01/17 Time of Evaluation: 23:21 - Subjective Subjective: EVENTS NOTED. TMAX 102.3 S/P OR. Operation Performed: excision and draniage of left abdominal flank abscess Specimen/Specimens Removed: culture. tissue including abscess cavity and overlying subcutaneous fat and skin CASE DISCUSSED W QUOTE CLERK DR DE L AFUENTE /AND STAFF. SPECIMEN TISSUE TO BE SENT 12/01/17 IN OR --- FOR ACTINOMYCOSIS /NOCARDIA, AFB,FUNGAL ,BACTERIAL SMEARS AND CULTURE. LT .CT IN PLACE -DRAINING SEROSANGINOUS FLUID LT. ABDOMEN WITH ARUNA DRAIN PRESENT Objective - Vital Signs/Intake and Output Vital Signs (last 24 hours): Temp Pulse Resp BP Pulse Ox 99.3 F 92 H 19 121/55 L 95 12/01/17 20:50 12/01/17 21:09 12/01/17 21:54 12/01/17 21:10 12/01/17 21:54 Intake and Output: 12/01/17 12/02/17 18:59 06:59 Intake Total 1200 Output Total 720 Balance 480 - Medications Medications: Current Medications Acetaminophen (Tylenol 325mg Tab) 650 mg PO Q6 PRN PRN Reason: Fever >100.4 F Last Admin: 12/01/17 07:39 Dose: 650 mg Albuterol (Ventolin Hfa 90 Mcg/Actuation (8 G)) 2 puff IH RQ6 PRN PRN Reason: SOB Last Admin: 11/18/17 08:19 Dose: 2 puff Albuterol/Ipratropium (Duoneb 3 Mg/0.5 Mg (3 Ml) Ud) 3 ml INH RQ6 [facility] Last Admin: 12/01/17 19:25 Dose: Not Given Aspirin (Ecotrin) 81 mg PO DAILY [facility] Last Admin: 12/01/17 09:59 Dose: 81 mg Enoxaparin Sodium (Lovenox) 40 mg SC DAILY [facility] Last Admin: 12/01/17 09:58 Dose: 40 mg Guaifenesin/Dextromethorphan (Robitussin Dm) 15 ml PO Q6H [facility] Last Admin: 12/01/17 17:24 Dose: Not Given Hydromorphone/Sodium Chloride (Dilaudid Lease Examiner) 6 mg IV Q4H PRN; Protocol PRN Reason: Pain, Mild (1-3) Last Admin: 12/01/17 22:04 Dose: 6 mg Vancomycin HCl 1,250 mg/ (Sodium Chloride) 250 mls @ 166.6 mls/hr IVPB Q12H [facility] Last Admin: 12/01/17 14:19 Dose: 166.6 mls/hr Piperacillin Sod/Tazobactam Sod (Zosyn 3.375 Gm Iv Premix) 3.375 gm in 50 mls @ 100 mls/hr IVPB Q8H [facility] PRN Reason: Protocol Last Admin: 12/01/17 17:27 Dose: 100 mls/hr Metronidazole (Flagyl) 500 mg in 100 mls @ 100 mls/hr IVPB Q8 [facility] PRN Reason: Protocol Last Admin: 12/01/17 21:55 Dose: 100 mls/hr Sodium Chloride (Sodium Chloride 0.9%) 1,000 mls @ 125 mls/hr IV .Q8H [facility] Last Admin: 12/01/17 21:59 Dose: 125 mls/hr Losartan Potassium (Cozaar) 50 mg PO DAILY [facility] Last Admin: 12/01/17 09:59 Dose: 50 mg Metformin HCl (Glucophage Xr) 500 mg PO HS [facility] Last Admin: 12/01/17 21:27 Dose: Not Given Metoprolol Tartrate (Lopressor) 25 mg PO BID [facility] Last Admin: 12/01/17 17:24 Dose: Not Given Morphine Sulfate (Morphine) 4 mg IVP Q4 PRN PRN Reason: Pain, moderate (4-7) Last Admin: 12/01/17 14:19 Dose: 4 mg Fluticasone/Salmeterol (Advair Diskus 250/50) 1 puff INH RQ12 [facility] Last Admin: 12/01/17 19:24 Dose: Not Given Senna/Docusate Sodium (Senokot S 50 Mg-8.6 Mg) 1 tab PO BID [facility] Last Admin: 12/01/17 17:24 Dose: Not Given - Labs Labs: 12/01/17 06:19 12/01/17 06:16 PT 14.2 SECONDS (9.7-12.2) H 11/29/17 14:41 INR 1.3 11/29/17 14:41 APTT 19 SECONDS (21-34) L 11/29/17 14:41 - Constitutional Appears: No Acute Distress - Head Exam Head Exam: NORMAL INSPECTION - Eye Exam Eye Exam: PERRL - ENT Exam ENT Exam: Normal Oropharynx - Neck Exam Neck Exam: Normal Inspection - Respiratory Exam Respiratory Exam: Decreased Breath Sounds (LT SIDE W CT IN PLACE.) - Cardiovascular Exam Cardiovascular Exam: REGULAR RHYTHM, +S1, +S2 - GI/Abdominal Exam GI & Abdominal Exam: Soft (POST OPTIVE .), Tenderness (POST .OPTIVE SITE.) - Extremities Exam Extremities Exam: absent: Calf Tenderness, Pedal Edema - Neurological Exam Neurological Exam: Awake, CN II-XII Intact, Oriented x3 - Psychiatric Exam Psychiatric exam: Normal Mood - Skin Skin Exam: Normal Color, Warm Assessment and Plan (1) Pneumonia Assessment & Plan: S/P LEFT THORACOSTOMY / CHEST -TUBE 11/29/17. -PLEURAL FLUID NEGATIVE GROWTH SO FAR. -PLEURAL FLUID BLOODY, wbc 1223, 84% NEUTROPHILS, 14% LYMPHS RBCS [id number]. CONTINUE IV ZOSYN 3.375 EVERY 8 HOURLY 11/15/17 CONTINUE IV VANCOMYCIN 1250 MG iv EVERY 12 HOURLY FOR mrsa STREP COVERAGE . ADD IV FLAGYL 500MG IV Q8HRLY FOR ANAEROBIC COVERAGE. 12/01/[address] MARTINEZ. DC IV ZITHROMAX 500 MG iv PIGGYBACK ONCE A DAY DAILY.11/23/17. FOLLOW-UP PLEURAL FLUID CYTOLOGY, afb SMEARS, FUNGAL SMEARS. CHEST TUBE CARE PER SURGERY. Status: Acute (2) Left upper quadrant abdominal swelling Status: Acute (3) Bronchitis Status: Acute (4) Morbid obesity Status: Acute
[2017-12-02] MEDS: guaiFENesin DM 100 mg-10 mg/5 ml UD PO SCH ×4 (01:08→17:54)
[2017-12-02] MEDS: Piperacill/Tazo 3.375gm in Dex 3.375 GM/50 ML BAG IVPB SCH ×3 (01:10→17:52)
[2017-12-02] MEDS: Albuterol-Ipratrop 3 mg / 0.5 (3 ml) UD INH SCH ×3 (01:21→13:20)
[2017-12-02] MEDS: metroNIDAZOLE IV 500 mg/100 ml 500 MG/100 ML BAG IVPB SCH ×3 (06:01→22:18)
[2017-12-02] MEDS: Sodium Chloride 0.9% 1,000 ML IV SCH ×2 (06:02→13:42)
--- NOTE | 2017-12-02 06:26 | CP.PCM.PN ---
<Yahir Ragland Julita - Last Filed: 12/02/17 06:23> Subjective - Date & Time of Evaluation Date of Evaluation: 12/02/17 Time of Evaluation: 06:23 - Subjective Subjective: General/CT Surgery: Dr New/Dr Elizabeth Pt S&e. AVO. POD#1 s/p left flank debridement with wound vac placement. Pt pain is well controlled. Afebrile since OR. Very stressed and concerned about overall health. Reinforced that we have now identified the problem and it is being treated. Pt understands. Denies n/v, f/c, sob or chest pain. Objective - Vital Signs/Intake and Output Vital Signs (last 24 hours): Temp Pulse Resp BP Pulse Ox 98.7 F 97 H 22 122/70 93 L 12/02/17 04:00 12/02/17 04:04 12/02/17 04:04 12/02/17 04:04 12/02/17 04:04 Intake and Output: 12/01/17 12/02/17 18:59 06:59 Intake Total 1200 2090 Output Total 720 600 Balance 480 1490 - Medications Medications: Current Medications Acetaminophen (Tylenol 325mg Tab) 650 mg PO Q6 PRN PRN Reason: Fever >100.4 F Last Admin: 12/01/17 07:39 Dose: 650 mg Albuterol/Ipratropium (Duoneb 3 Mg/0.5 Mg (3 Ml) Ud) 3 ml INH RQ6 [facility] Last Admin: 12/02/17 01:21 Dose: 3 ml Aspirin (Ecotrin) 81 mg PO DAILY [facility] Last Admin: 12/01/17 09:59 Dose: 81 mg Enoxaparin Sodium (Lovenox) 40 mg SC DAILY [facility] Last Admin: 12/01/17 09:58 Dose: 40 mg Guaifenesin/Dextromethorphan (Robitussin Dm) 15 ml PO Q6H [facility] Last Admin: 12/02/17 06:01 Dose: 15 ml Hydromorphone/Sodium Chloride (Dilaudid Supervisor [place]) 6 mg IV Q4H PRN; Protocol PRN Reason: Pain, Mild (1-3) Last Admin: 12/01/17 22:04 Dose: 6 mg Vancomycin HCl 1,250 mg/ (Sodium Chloride) 250 mls @ 166.6 mls/hr IVPB Q12H [facility] Last Admin: 12/02/17 02:30 Dose: 166.6 mls/hr Piperacillin Sod/Tazobactam Sod (Zosyn 3.375 Gm Iv Premix) 3.375 gm in 50 mls @ 100 mls/hr IVPB Q8H [facility] PRN Reason: Protocol Last Admin: 12/02/17 01:10 Dose: 100 mls/hr Metronidazole (Flagyl) 500 mg in 100 mls @ 100 mls/hr IVPB Q8 [facility] PRN Reason: Protocol Last Admin: 12/02/17 06:01 Dose: 100 mls/hr Sodium Chloride (Sodium Chloride 0.9%) 1,000 mls @ 125 mls/hr IV .Q8H [facility] Last Admin: 12/02/17 06:02 Dose: Not Given Losartan Potassium (Cozaar) 50 mg PO DAILY [facility] Last Admin: 12/01/17 09:59 Dose: 50 mg Metformin HCl (Glucophage Xr) 500 mg PO HS [facility] Last Admin: 12/01/17 21:27 Dose: Not Given Metoprolol Tartrate (Lopressor) 25 mg PO BID [facility] Last Admin: 12/01/17 17:24 Dose: Not Given Morphine Sulfate (Morphine) 4 mg IVP Q4 PRN PRN Reason: Pain, moderate (4-7) Last Admin: 12/01/17 14:19 Dose: 4 mg Fluticasone/Salmeterol (Advair Diskus 250/50) 1 puff INH RQ12 [facility] Last Admin: 12/01/17 19:24 Dose: Not Given Senna/Docusate Sodium (Senokot S 50 Mg-8.6 Mg) 1 tab PO BID [facility] Last Admin: 12/01/17 17:24 Dose: Not Given - Labs Labs: 12/01/17 06:19 12/01/17 06:16 PT 14.2 SECONDS (9.7-12.2) H 11/29/17 14:41 INR 1.3 11/29/17 14:41 APTT 19 SECONDS (21-34) L 11/29/17 14:41 - Constitutional Appears: Non-toxic, No Acute Distress - Respiratory Exam Respiratory Exam: absent: Accessory Muscle Use, Respiratory Distress - Cardiovascular Exam Cardiovascular Exam: REGULAR RHYTHM. absent: Tachycardia Additional comments: CT no air leak - dressing c/d/i - 200cc output - GI/Abdominal Exam GI & Abdominal Exam: Soft. absent: Distended, Firm, Guarding, Tenderness Additional comments: wound vac with good seal - 20cc drainage - Neurological Exam Neurological Exam: Alert, Awake, Oriented x3 - Psychiatric Exam Psychiatric exam: Anxious - Skin Skin Exam: Normal Color, Warm Assessment and Plan - Assessment and Plan (Free Text) Assessment: 42M s/p left chest tube and left abdominal wall debridement 2/2 unknown infectious etiology Plan: cont ct and wound vac to suction will f/u cultures OOB to chair FREIGHT SORTER for pain will d/w attendings WOLF RaglandY3 <Andres New B - Last Filed: 12/03/17 19:07> Objective - Vital Signs/Intake and Output Vital Signs (last 24 hours): Temp Pulse Resp BP Pulse Ox 98.4 F 87 16 145/67 98 12/03/17 16:00 12/03/17 18:00 12/03/17 18:00 12/03/17 17:35 12/03/17 18:00 Intake and Output: 12/03/17 12/04/17 18:59 06:59 Intake Total 2317 Output Total 1980 Balance 337 - Medications Medications: Current Medications Acetaminophen (Tylenol 325mg Tab) 650 mg PO Q6 PRN PRN Reason: Fever >100.4 F Last Admin: 12/01/17 07:39 Dose: 650 mg Aspirin (Ecotrin) 81 mg PO DAILY [facility] Last Admin: 12/03/17 09:23 Dose: 81 mg Enoxaparin Sodium (Lovenox) 40 mg SC DAILY [facility] Last Admin: 12/03/17 09:24 Dose: 40 mg Guaifenesin/Dextromethorphan (Robitussin Dm) 15 ml PO Q6H [facility] Last Admin: 12/03/17 17:12 Dose: 15 ml Vancomycin HCl 1,250 mg/ (Sodium Chloride) 250 mls @ 166.6 mls/hr IVPB Q12H [facility] Last Admin: 12/03/17 14:12 Dose: 166.6 mls/hr Piperacillin Sod/Tazobactam Sod (Zosyn 3.375 Gm Iv Premix) 3.375 gm in 50 mls @ 100 mls/hr IVPB Q8H [facility] PRN Reason: Protocol Last Admin: 12/03/17 17:05 Dose: 100 mls/hr Metronidazole (Flagyl) 500 mg in 100 mls @ 100 mls/hr IVPB Q8 [facility] PRN Reason: Protocol Last Admin: 12/03/17 13:05 Dose: 100 mls/hr Sodium Chloride (Sodium Chloride 0.9%) 1,000 mls @ 75 mls/hr IV .[id number] [facility] Last Admin: 12/03/17 10:59 Dose: Not Given Losartan Potassium (Cozaar) 50 mg PO DAILY [facility] Last Admin: 12/03/17 09:23 Dose: 50 mg Metoprolol Tartrate (Lopressor) 25 mg PO BID [facility] Last Admin: 12/03/17 17:06 Dose: 25 mg Morphine Sulfate (Morphine) 4 mg IVP Q4 PRN PRN Reason: Pain, moderate (4-7) Last Admin: 12/03/17 16:08 Dose: 4 mg Fluticasone/Salmeterol (Advair Diskus 250/50) 1 puff INH RQ12 [facility] Last Admin: 12/03/17 07:52 Dose: 1 puff Senna/Docusate Sodium (Senokot S 50 Mg-8.6 Mg) 1 tab PO BID [facility] Last Admin: 12/03/17 17:06 Dose: 1 tab - Labs Labs: 12/03/17 06:34 12/03/17 06:34 PT 14.2 SECONDS (9.7-12.2) H 11/29/17 14:41 INR 1.3 11/29/17 14:41 APTT 19 SECONDS (21-34) L 11/29/17 14:41 Attending/Attestation - Attestation I have fully participated in the care of the patient.: Yes I have reviewed all pertinent clinical information, including history, physical exam and plan: Yes Notes (Text): Pt is improving clinically No bleeding from wound vac c.w current mx OR for Wound vac change and debridement on monday.
[2017-12-02 07:01] LABS: BASO # 0.1 K/uL (0.0-0.2); BASO % 0.8 % (0.0-2.0); EOS # 0.2 K/uL (0.0-0.7); EOS % 1.8 % (0.0-4.0); LYMPH # 1.4 K/uL (1.0-4.3); LYMPH % 11.6 % (20.0-40.0); MEAN CELL VOLUME 81.2 fL (80.0-94.0); MEAN CORPUSCULAR HEMOGLOBIN 26.9 pg (27.0-31.0); MEAN CORPUSCULAR HGB CONC 33.1 g/dL (33.0-37.0); MEAN PLATELET VOLUME 7.6 fL (7.2-11.7); MONO # 1.2 K/uL (0.0-0.8); MONO % 9.4 % (0.0-10.0); NEUT # 9.5 K/uL (1.8-7.0); NEUT % 76.4 % (50.0-75.0); RBC 3.71 Mil/uL (4.40-5.90); RED CELL DISTRIBUTION WIDTH 15.8 % (11.5-14.5); WHITE BLOOD COUNT 12.4 K/uL (4.8-10.8)
[2017-12-02 07:30] LABS: ALB/GLOB RATIO 0.8 (1.0-2.1); ALBUMIN 2.7 g/dL (3.5-5.0); ALT/SGPT 35 U/L (21-72); AST/SGOT 31 U/L (17-59); BLOOD UREA NITROGEN 8 mg/dL (9-20); CALCIUM 7.6 mg/dl (8.6-10.4); GFR AFRICAN-AMERICAN > 60; GFR NON-AFRICAN AMERICAN > 60
--- NOTE | 2017-12-02 08:32 | RAD ---
HISTORY: has left chest tube COMPARISON: Re-/ 18 FINDINGS: LUNGS: Examination limited due to patient body habitus. New hazy opacity at left base may reflect dependent pleural fluid or new infiltrate. Followup. . PLEURA: Left chest tube. Minimal bilateral pleural effusion. No pneumothorax. CARDIOVASCULAR: Normal. OSSEOUS STRUCTURES: No significant abnormalities. VISUALIZED UPPER ABDOMEN: Normal. OTHER FINDINGS: None. IMPRESSION: Minimal bilateral pleural effusion. New hazy opacity at left base. Followup to exclude developing pneumonia.
[2017-12-02] MEDS: Enoxaparin 40 mg Syringe SC SCH (10:15)
[2017-12-02] MEDS: Docusate-Senna 50 mg-8.6 mg Tab PO SCH ×2 (11:31→17:56)
[2017-12-02] MEDS: Fluticasone-Salmeterol 250-50mcg Diskus INH SCH ×3 (11:32→20:03)
--- NOTE | 2017-12-02 12:43 | CP.CCUPN ---
CCU Subjective - Physician Review Events Since Last Encounter (Free Text): no compalints. CCU Objective - Vital Signs / Intake & Output Vital Signs (Last 4 hours): Vital Signs Temp Pulse Resp BP Pulse Ox 12/02/17 12:06 144/73 12/02/17 12:00 98.8 F 87 16 94 L 12/02/17 11:34 86 19 137/91 H 98 12/02/17 11:04 85 16 130/72 97 12/02/17 11:00 91 H 21 95 12/02/17 10:35 89 25 H 139/68 97 12/02/17 10:15 135/63 12/02/17 10:04 88 17 135/63 96 12/02/17 10:00 90 15 96 12/02/17 09:34 91 H 19 121/77 96 12/02/17 09:04 93 H 17 117/56 L 97 12/02/17 09:00 94 H 18 98 Intake and Output (Last 8hrs): Intake & Output 12/01/17 12/02/17 12/02/17 22:59 06:59 14:59 Intake Total 800 2440 800 Output Total 720 1050 220 Balance 80 1390 580 Weight 476 lb 3.2 oz Intake: IV 300 Intake, IV Amount 500 1000 800 Right PICC 500 1000 800 Oral 0 1440 0 Output: Chest Tube Drainage 120 120 Left 120 120 Drainage 100 left flank 100 Urine 600 1050 Urine, Voided 600 1050 Other: # Voids Urine, Voided 0 1 0 # Bowel Movements 0 0 0 - Medications Active Medications: Active Medications Generic Name Dose Route Start Last Admin Trade Name Freq PRN Reason Stop Dose Admin Acetaminophen 650 mg 11/30/17 12:34 12/01/17 07:39 Tylenol 325mg Tab PO 650 mg Q6 PRN Administration Fever >100.4 F Albuterol/Ipratropium 3 ml 11/27/17 14:00 12/02/17 07:52 Duoneb 3 Mg/0.5 Mg (3 Ml) Ud INH 3 ml RQ6 ZANE Administration Aspirin 81 mg 11/24/17 10:00 12/02/17 10:14 Ecotrin PO 81 mg DAILY ZANE Administration Enoxaparin Sodium 40 mg 11/30/17 10:45 12/02/17 10:15 Lovenox SC 40 mg DAILY ZANE Administration Guaifenesin/Dextromethorphan 15 ml 11/21/17 12:04 12/02/17 12:19 Robitussin Dm PO Not Given Q6H ZANE Hydromorphone/Sodium Chloride 6 mg 12/01/17 20:30 12/01/17 22:04 Dilaudid Carpenter Mold IV 6 mg Q4H PRN Administration Pain, Mild (1-3) Protocol Vancomycin HCl 1,250 mg/ 250 mls @ 166.6 mls/hr 11/16/17 03:00 12/02/17 02:30 Sodium Chloride IVPB 166.6 mls/hr Q12H ZANE Administration Piperacillin Sod/Tazobactam Sod 3.375 gm in 50 mls @ 100 mls/hr 11/27/17 01: 45 12/02/17 10:20 Zosyn 3.375 Gm Iv Premix IVPB 100 mls/hr Q8H ZANE Administration Protocol Metronidazole 500 mg in 100 mls @ 100 mls/hr 12/01/17 14:00 12/02/17 06:01 Flagyl IVPB 100 mls/hr Q8 ZANE Administration Protocol Sodium Chloride 1,000 mls @ 125 mls/hr 12/01/17 22:00 12/02/17 06:02 Sodium Chloride 0.9% IV Not Given .Q8H ZANE Losartan Potassium 50 mg 11/15/17 10:00 12/02/17 10:14 Cozaar PO 50 mg DAILY ZANE Administration Metformin HCl 500 mg 11/23/17 22:00 12/01/17 21:27 Glucophage Xr PO Not Given HS [facility] Metoprolol Tartrate 25 mg 11/27/17 10:15 12/02/17 10:15 Lopressor PO 25 mg BID ZANE Administration Morphine Sulfate 4 mg 11/30/17 22:00 12/01/17 14:19 Morphine IVP 4 mg Q4 PRN Administration Pain, moderate (4-7) Fluticasone/Salmeterol 1 puff 11/15/17 08:00 12/02/17 11:33 Advair Diskus 250/50 INH 1 puff RQ12 ZANE Administration Senna/Docusate Sodium 1 tab 11/23/17 18:00 12/02/17 11:31 Senokot S 50 Mg-8.6 Mg PO 1 tab BID ZANE Administration - Patient Studies Lab Studies: Microbiology Studies 12/01/17 21:00 Gram Stain - Final Abdominal Fluid Body Fluid Culture - Preliminary NO GROWTH AFTER 24 HOURS 11/24/17 14:40 Mycobacterial Culture - Preliminary Other: Please Indicate 11/29/17 17:19 Gram Stain - Final Pleural Fluid Body Fluid Culture - Preliminary NO GROWTH AFTER 3 DAYS 11/29/17 17:19 Mycobacterial Culture - Preliminary Other: Please Indicate 11/30/17 12:30 Blood Culture - Preliminary Blood NO GROWTH AFTER 24 HOURS 11/30/17 12:34 Blood Culture - Preliminary Blood NO GROWTH AFTER 24 HOURS 11/29/17 Unknown Anaerobic Culture - Final Pleural Fluid NO ANAEROBES ISOLATED. Lab Studies 12/02/17 12/02/17 12/02/17 Range/Units 11:24 07:25 06:54 WBC (4.8-10.8) K/uL RBC (4.40-5.90) Mil/uL Hgb (12.0-18.0) g/dL Hct (35.0-51.0) % MCV (80.0-94.0) fL MCH (27.0-31.0) pg MCHC (33.0-37.0) g/dL RDW (11.5-14.5) % Plt Count (130-400) K/uL MPV (7.2-11.7) fL Neut % (Auto) (50.0-75.0) % Lymph % (Auto) (20.0-40.0) % Mcintosh % (Auto) (0.0-10.0) % Eos % (Auto) (0.0-4.0) % Baso % (Auto) (0.0-2.0) % Neut # (Auto) (1.8-7.0) K/uL Lymph # (Auto) (1.0-4.3) K/uL Mcintosh # (Auto) (0.0-0.8) K/uL Eos # (Auto) (0.0-0.7) K/uL Baso # (Auto) (0.0-0.2) K/uL Sodium 134 (132-148) mmol/L Potassium 4.0 (3.6-5.2) mmol/L Chloride 97 L (98-107) mmol/L Carbon Dioxide 31 H (22-30) mmol/L Anion Gap 10 (10-20) BUN 8 L (9-20) mg/dL Creatinine 1.0 (0.8-1.5) mg/dL Est GFR ( Amer) > 60 Est GFR (Non-Af Amer) > 60 POC Glucose (mg/dL) 183 H 100 (65-110) mg/dL Random Glucose 100 (75-110) mg/dL Calcium 7.6 L (8.6-10.4) mg/dl Phosphorus 3.7 (2.5-4.5) mg/dL Magnesium 2.0 (1.6-2.3) mg/dL Total Bilirubin 0.2 (0.2-1.3) mg/dL AST 31 (17-59) U/L ALT 35 (21-72) U/L Alkaline Phosphatase 51 (38-126) U/L Total Protein 5.9 L (6.3-8.3) g/dL Albumin 2.7 L (3.5-5.0) g/dL Globulin 3.2 (2.2-3.9) gm/dL Albumin/Globulin Ratio 0.8 L (1.0-2.1) Blood Type Antibody Screen 12/02/17 12/01/17 12/01/17 Range/Units 06:54 21:22 16:21 WBC 12.4 H (4.8-10.8) K/uL RBC 3.71 L (4.40-5.90) Mil/uL Hgb 10.0 L (12.0-18.0) g/dL Hct 30.1 L (35.0-51.0) % MCV 81.2 (80.0-94.0) fL MCH 26.9 L (27.0-31.0) pg MCHC 33.1 (33.0-37.0) g/dL RDW 15.8 H (11.5-14.5) % Plt Count 336 (130-400) K/uL MPV 7.6 (7.2-11.7) fL Neut % (Auto) 76.4 H (50.0-75.0) % Lymph % (Auto) 11.6 L (20.0-40.0) % Mcintosh % (Auto) 9.4 (0.0-10.0) % Eos % (Auto) 1.8 (0.0-4.0) % Baso % (Auto) 0.8 (0.0-2.0) % Neut # (Auto) 9.5 H (1.8-7.0) K/uL Lymph # (Auto) 1.4 (1.0-4.3) K/uL Mcintosh # (Auto) 1.2 H (0.0-0.8) K/uL Eos # (Auto) 0.2 (0.0-0.7) K/uL Baso # (Auto) 0.1 (0.0-0.2) K/uL Sodium (132-148) mmol/L Potassium (3.6-5.2) mmol/L Chloride (98-107) mmol/L Carbon Dioxide (22-30) mmol/L Anion Gap (10-20) BUN (9-20) mg/dL Creatinine (0.8-1.5) mg/dL Est GFR ( Amer) Est GFR (Non-Af Amer) POC Glucose (mg/dL) 90 94 (65-110) mg/dL Random Glucose (75-110) mg/dL Calcium (8.6-10.4) mg/dl Phosphorus (2.5-4.5) mg/dL Magnesium (1.6-2.3) mg/dL Total Bilirubin (0.2-1.3) mg/dL AST (17-59) U/L ALT (21-72) U/L Alkaline Phosphatase (38-126) U/L Total Protein (6.3-8.3) g/dL Albumin (3.5-5.0) g/dL Globulin (2.2-3.9) gm/dL Albumin/Globulin Ratio (1.0-2.1) Blood Type Antibody Screen 11/29/17 Range/Units 14:00 WBC (4.8-10.8) K/uL RBC (4.40-5.90) Mil/uL Hgb (12.0-18.0) g/dL Hct (35.0-51.0) % MCV (80.0-94.0) fL MCH (27.0-31.0) pg MCHC (33.0-37.0) g/dL RDW (11.5-14.5) % Plt Count (130-400) K/uL MPV (7.2-11.7) fL Neut % (Auto) (50.0-75.0) % Lymph % (Auto) (20.0-40.0) % Mcintosh % (Auto) (0.0-10.0) % Eos % (Auto) (0.0-4.0) % Baso % (Auto) (0.0-2.0) % Neut # (Auto) (1.8-7.0) K/uL Lymph # (Auto) (1.0-4.3) K/uL Mcintosh # (Auto) (0.0-0.8) K/uL Eos # (Auto) (0.0-0.7) K/uL Baso # (Auto) (0.0-0.2) K/uL Sodium (132-148) mmol/L Potassium (3.6-5.2) mmol/L Chloride (98-107) mmol/L Carbon Dioxide (22-30) mmol/L Anion Gap (10-20) BUN (9-20) mg/dL Creatinine (0.8-1.5) mg/dL Est GFR ( Amer) Est GFR (Non-Af Amer) POC Glucose (mg/dL) (65-110) mg/dL Random Glucose (75-110) mg/dL Calcium (8.6-10.4) mg/dl Phosphorus (2.5-4.5) mg/dL Magnesium (1.6-2.3) mg/dL Total Bilirubin (0.2-1.3) mg/dL AST (17-59) U/L ALT (21-72) U/L Alkaline Phosphatase (38-126) U/L Total Protein (6.3-8.3) g/dL Albumin (3.5-5.0) g/dL Globulin (2.2-3.9) gm/dL Albumin/Globulin Ratio (1.0-2.1) Blood Type O POSITIVE Antibody Screen Negative Laboratory Results - last 24 hr 11/29/17 12/01/17 12/01/17 14:00 16:21 21:22 WBC RBC Hgb Hct MCV MCH MCHC RDW Plt Count MPV Neut % (Auto) Lymph % (Auto) Mcintosh % (Auto) Eos % (Auto) Baso % (Auto) Neut # (Auto) Lymph # (Auto) Mcintosh # (Auto) Eos # (Auto) Baso # (Auto) Sodium Potassium Chloride Carbon Dioxide Anion Gap BUN Creatinine Est GFR ( Amer) Est GFR (Non-Af Amer) POC Glucose (mg/dL) 94 90 Random Glucose Calcium Phosphorus Magnesium Total Bilirubin AST ALT Alkaline Phosphatase Total Protein Albumin Globulin Albumin/Globulin Ratio Blood Type O POSITIVE Antibody Screen Negative 12/02/17 12/02/17 12/02/17 06:54 06:54 07:25 WBC 12.4 H RBC 3.71 L Hgb 10.0 L Hct 30.1 L MCV 81.2 MCH 26.9 L MCHC 33.1 RDW 15.8 H Plt Count 336 MPV 7.6 Neut % (Auto) 76.4 H Lymph % (Auto) 11.6 L Mcintosh % (Auto) 9.4 Eos % (Auto) 1.8 Baso % (Auto) 0.8 Neut # (Auto) 9.5 H Lymph # (Auto) 1.4 Mcintosh # (Auto) 1.2 H Eos # (Auto) 0.2 Baso # (Auto) 0.1 Sodium 134 Potassium 4.0 Chloride 97 L Carbon Dioxide 31 H Anion Gap 10 BUN 8 L Creatinine 1.0 Est GFR ( Amer) > 60 Est GFR (Non-Af Amer) > 60 POC Glucose (mg/dL) 100 Random Glucose 100 Calcium 7.6 L Phosphorus 3.7 Magnesium 2.0 Total Bilirubin 0.2 AST 31 ALT 35 Alkaline Phosphatase 51 Total Protein 5.9 L Albumin 2.7 L Globulin 3.2 Albumin/Globulin Ratio 0.8 L Blood Type Antibody Screen 12/02/17 11:24 WBC RBC Hgb Hct MCV MCH MCHC RDW Plt Count MPV Neut % (Auto) Lymph % (Auto) Mcintosh % (Auto) Eos % (Auto) Baso % (Auto) Neut # (Auto) Lymph # (Auto) Mcintosh # (Auto) Eos # (Auto) Baso # (Auto) Sodium Potassium Chloride Carbon Dioxide Anion Gap BUN Creatinine Est GFR ( Amer) Est GFR (Non-Af Amer) POC Glucose (mg/dL) 183 H Random Glucose Calcium Phosphorus Magnesium Total Bilirubin AST ALT Alkaline Phosphatase Total Protein Albumin Globulin Albumin/Globulin Ratio Blood Type Antibody Screen Fingerstick Blood Sugar Results: 100 Critical Care Progress Note - Nutrition Nutrition: Nutrition Category Date Time Status Heart Healthy Diet [DIET] Diets 12/02/17 Breakfast Active Assessment/Plan (1) Abscess Assessment and plan: 42 year old male with past medical history of morbid obesity and TB, HTN. p/w left pleural effusion s/p drainage with chest tube. Surgical I&D (12/01/17) of abdominal wall abscess. Neuro: alert and oriented x 3, pain control with morphine prn. Pulm: chest tube draining well, decreasing amount. CV: hemodynamically stable. HTN controlled with metoprolol and cozaar. Hem: no acute issues Renal: no acute issues Endo: no acute issues GI: low sodium diet. Wound vac in place over drained abdominal wall abscess - Surgical team following. Dr. Ortega. ID: possible anaerobic infection from left lateral abdomen/chest wall, seen on CT abdomen, r/o actinomycosis or nocardia, or other etiology. F/u cultures and pathology sent out. Continue Flagyl IV, Zosyn and Vancomycin. ID - Dr. Rome DVT proph - lovenox GI proph - not currently indicated Code status - full code Critical Care Time spent 35 minutes Multi-disciplinary rounds were performed with house staff, nursing, speech therapy, respiratory therapy, pharmacy and nutrition with integrated input from the primary team/attending and other consulting services. The documented time is cumulative and includes review of patient data/exams/labs/chart review and examination of the patient on rounds and throughout the day; time is exclusive of any procedures or teaching time. Current Visit: Yes Status: Acute
[2017-12-02 14:52] LABS: TOTAL PROTEIN PLEURAL FLUID 5.1 g/dL
[2017-12-02 14:52] LABS: GLUCOSE PLEURAL FLUID 57 mg/dL; LDH PLEURAL FLUID 3078 U/L
--- NOTE | 2017-12-02 15:06 | CP.PCM.PN ---
Subjective - Date & Time of Evaluation Date of Evaluation: 12/02/17 Time of Evaluation: 13:00 - Subjective Subjective: clinically same Objective - Vital Signs/Intake and Output Vital Signs (last 24 hours): Temp Pulse Resp BP Pulse Ox 98.8 F 86 12 144/73 99 12/02/17 12:00 12/02/17 13:00 12/02/17 13:00 12/02/17 12:06 12/02/17 13:00 Intake and Output: 12/02/17 12/02/17 06:59 18:59 Intake Total 2540 925 Output Total 1050 220 Balance 1490 705 - Medications Medications: Current Medications Acetaminophen (Tylenol 325mg Tab) 650 mg PO Q6 PRN PRN Reason: Fever >100.4 F Last Admin: 12/01/17 07:39 Dose: 650 mg Aspirin (Ecotrin) 81 mg PO DAILY [facility] Last Admin: 12/02/17 10:14 Dose: 81 mg Enoxaparin Sodium (Lovenox) 40 mg SC DAILY [facility] Last Admin: 12/02/17 10:15 Dose: 40 mg Guaifenesin/Dextromethorphan (Robitussin Dm) 15 ml PO Q6H [facility] Last Admin: 12/02/17 12:19 Dose: Not Given Hydromorphone/Sodium Chloride (Dilaudid Environmental Scientist) 6 mg IV Q4H PRN; Protocol PRN Reason: Pain, Mild (1-3) Last Admin: 12/01/17 22:04 Dose: 6 mg Vancomycin HCl 1,250 mg/ (Sodium Chloride) 250 mls @ 166.6 mls/hr IVPB Q12H [facility] Last Admin: 12/02/17 02:30 Dose: 166.6 mls/hr Piperacillin Sod/Tazobactam Sod (Zosyn 3.375 Gm Iv Premix) 3.375 gm in 50 mls @ 100 mls/hr IVPB Q8H ZANE PRN Reason: Protocol Last Admin: 12/02/17 10:20 Dose: 100 mls/hr Metronidazole (Flagyl) 500 mg in 100 mls @ 100 mls/hr IVPB Q8 ZANE PRN Reason: Protocol Last Admin: 12/02/17 13:40 Dose: 100 mls/hr Sodium Chloride (Sodium Chloride 0.9%) 1,000 mls @ 125 mls/hr IV .Q8H [facility] Last Admin: 12/02/17 13:42 Dose: 125 mls/hr Losartan Potassium (Cozaar) 50 mg PO DAILY [facility] Last Admin: 12/02/17 10:14 Dose: 50 mg Metformin HCl (Glucophage Xr) 500 mg PO HS [facility] Last Admin: 12/01/17 21:27 Dose: Not Given Metoprolol Tartrate (Lopressor) 25 mg PO BID [facility] Last Admin: 12/02/17 10:15 Dose: 25 mg Morphine Sulfate (Morphine) 4 mg IVP Q4 PRN PRN Reason: Pain, moderate (4-7) Last Admin: 12/01/17 14:19 Dose: 4 mg Fluticasone/Salmeterol (Advair Diskus 250/50) 1 puff INH RQ12 [facility] Last Admin: 12/02/17 11:33 Dose: 1 puff Senna/Docusate Sodium (Senokot S 50 Mg-8.6 Mg) 1 tab PO BID [facility] Last Admin: 12/02/17 11:31 Dose: 1 tab - Labs Labs: 12/02/17 06:54 12/02/17 06:54 PT 14.2 SECONDS (9.7-12.2) H 11/29/17 14:41 INR 1.3 11/29/17 14:41 APTT 19 SECONDS (21-34) L 11/29/17 14:41 - Constitutional Appears: Well - Head Exam Head Exam: ATRAUMATIC, NORMAL INSPECTION, NORMOCEPHALIC - Eye Exam Eye Exam: EOMI, Normal appearance, PERRL Pupil Exam: NORMAL ACCOMODATION, PERRL - ENT Exam ENT Exam: Mucous Membranes Moist, Normal Exam - Neck Exam Neck Exam: Full ROM, Normal Inspection. absent: Lymphadenopathy - Respiratory Exam Respiratory Exam: Decreased Breath Sounds - Cardiovascular Exam Cardiovascular Exam: REGULAR RHYTHM, +S1, +S2 - GI/Abdominal Exam GI & Abdominal Exam: Soft, Diminished Bowel Sounds - Rectal Exam Rectal Exam: Deferred
--- NOTE | 2017-12-02 23:25 | PN ---
DATE: SUBJECTIVE: The patient underwent incision and drainage of left flank abdominal wall abscess. He denies any chest pain. PHYSICAL EXAMINATION: VITAL SIGNS: Blood pressure 126/76, heart rate 91, temperature 97.9, and respirations 22. HEENT: Pale conjunctivae. CHEST: Diminished breath sounds in the left base. HEART: S1 and S2 regular. EXTREMITIES: 1+ pitting edema. LABORATORY DATA: Today's potassium is 4.0. BUN and creatinine 8 and 1.0. Today's hemoglobin and hematocrit 10 and 30.1, white count 12.4, platelet count 334,000. ASSESSMENT: 1. Status post incision and drainage of left flank abscess. 2. Morbid obesity. 3. Left pleural effusion, status post chest tube placement. RECOMMENDATIONS: Continue current medical management including Cozaar, aspirin, IV Flagyl, Lopressor, prophylaxis subcutaneous Lovenox, and IV vancomycin. The patient can be transferred to Telemetry. Lazaro Omalley MD
--- NOTE | 2017-12-02 23:29 | CP.PCM.PN ---
Subjective - Date & Time of Evaluation Date of Evaluation: 12/02/17 Time of Evaluation: 23:29 - Subjective Subjective: # POD. S/P DEBRIDEMENT LEFT FLANK WITH WOUND vac PLACEMENT. AFEBRILE . LT. CHEST TUBE DRAINING SEROUS SANGUINOUS FLUID. C/O PAIN AT SITE OF CHEST TUBE. LABS rEVIEWED. Objective - Vital Signs/Intake and Output Vital Signs (last 24 hours): Temp Pulse Resp BP Pulse Ox 97.7 F 83 19 119/62 97 12/02/17 16:00 12/02/17 20:34 12/02/17 20:34 12/02/17 20:34 12/02/17 20:34 Intake and Output: 12/02/17 12/03/17 18:59 06:59 Intake Total 1450 245 Output Total 1180 Balance 270 245 - Medications Medications: Current Medications Acetaminophen (Tylenol 325mg Tab) 650 mg PO Q6 PRN PRN Reason: Fever >100.4 F Last Admin: 12/01/17 07:39 Dose: 650 mg Aspirin (Ecotrin) 81 mg PO DAILY [facility] Last Admin: 12/02/17 10:14 Dose: 81 mg Enoxaparin Sodium (Lovenox) 40 mg SC DAILY [facility] Last Admin: 12/02/17 10:15 Dose: 40 mg Guaifenesin/Dextromethorphan (Robitussin Dm) 15 ml PO Q6H [facility] Last Admin: 12/02/17 17:54 Dose: Not Given Hydromorphone/Sodium Chloride (Dilaudid Facilities And Grounds Director) 6 mg IV Q4H PRN; Protocol PRN Reason: Pain, Mild (1-3) Last Admin: 12/02/17 22:15 Dose: 6 mg Vancomycin HCl 1,250 mg/ (Sodium Chloride) 250 mls @ 166.6 mls/hr IVPB Q12H [facility] Last Admin: 12/02/17 16:09 Dose: 166.6 mls/hr Piperacillin Sod/Tazobactam Sod (Zosyn 3.375 Gm Iv Premix) 3.375 gm in 50 mls @ 100 mls/hr IVPB Q8H ZANE PRN Reason: Protocol Last Admin: 12/02/17 17:52 Dose: 100 mls/hr Metronidazole (Flagyl) 500 mg in 100 mls @ 100 mls/hr IVPB Q8 ZANE PRN Reason: Protocol Last Admin: 12/02/17 22:18 Dose: 100 mls/hr Sodium Chloride (Sodium Chloride 0.9%) 1,000 mls @ 125 mls/hr IV .Q8H [facility] Last Admin: 12/02/17 13:42 Dose: 125 mls/hr Losartan Potassium (Cozaar) 50 mg PO DAILY [facility] Last Admin: 12/02/17 10:14 Dose: 50 mg Metformin HCl (Glucophage Xr) 500 mg PO HS [facility] Last Admin: 12/02/17 22:18 Dose: Not Given Metoprolol Tartrate (Lopressor) 25 mg PO BID [facility] Last Admin: 12/02/17 17:52 Dose: 25 mg Morphine Sulfate (Morphine) 4 mg IVP Q4 PRN PRN Reason: Pain, moderate (4-7) Last Admin: 12/01/17 14:19 Dose: 4 mg Fluticasone/Salmeterol (Advair Diskus 250/50) 1 puff INH RQ12 [facility] Last Admin: 12/02/17 20:03 Dose: 1 puff Senna/Docusate Sodium (Senokot S 50 Mg-8.6 Mg) 1 tab PO BID [facility] Last Admin: 12/02/17 17:56 Dose: 1 tab - Labs Labs: 12/02/17 06:54 12/02/17 06:54 PT 14.2 SECONDS (9.7-12.2) H 11/29/17 14:41 INR 1.3 11/29/17 14:41 APTT 19 SECONDS (21-34) L 11/29/17 14:41 - Constitutional Appears: No Acute Distress - Head Exam Head Exam: NORMAL INSPECTION - Eye Exam Eye Exam: EOMI, PERRL - ENT Exam ENT Exam: Normal Oropharynx - Neck Exam Neck Exam: Normal Inspection - Respiratory Exam Respiratory Exam: Decreased Breath Sounds (LEFT SIDE CHEST-TUBE IN PLACE.) - Cardiovascular Exam Cardiovascular Exam: REGULAR RHYTHM, +S1, +S2 - GI/Abdominal Exam GI & Abdominal Exam: Soft, Hypoactive Bowel Sounds (ABDOMINAL WOUND WITH WOUND VAC.), Normal Bowel Sounds - Extremities Exam Extremities Exam: Pedal Edema (2+ EDEMA). absent: Calf Tenderness - Neurological Exam Neurological Exam: Awake, CN II-XII Intact, Oriented x3 - Psychiatric Exam Psychiatric exam: Normal Mood - Skin Skin Exam: Normal Color, Warm Assessment and Plan (1) Pneumonia Assessment & Plan: CONTINUE IV ABX. Status: Acute (2) Left upper quadrant abdominal swelling Assessment & Plan: CONTINUE IV ZOSYN 3.375 EVERY 8 HOURLY 11/15/17 CONTINUE IV VANCOMYCIN 1250 MG iv EVERY 12 HOURLY FOR mrsa STREP COVERAGE . ON IV FLAGYL 500MG IV Q8HRLY FOR ANAEROBIC COVERAGE. 12/01/[address] MARTINEZ. F/U CULTURES AND GRAM STAINS Status: Acute (3) Bronchitis Status: Acute (4) Morbid obesity Status: Acute
[2017-12-03] MEDS: guaiFENesin DM 100 mg-10 mg/5 ml UD PO SCH ×5 (00:59→23:43)
[2017-12-03] MEDS: Piperacill/Tazo 3.375gm in Dex 3.375 GM/50 ML BAG IVPB SCH ×3 (01:00→17:05)
[2017-12-03] MEDS: Sodium Chloride 0.9% 1,000 ML IV SCH ×2 (02:00→07:03)
[2017-12-03] MEDS: metroNIDAZOLE IV 500 mg/100 ml 500 MG/100 ML BAG IVPB SCH ×3 (05:00→21:17)
[2017-12-03 06:44] LABS: BASO # 0.1 K/uL (0.0-0.2); EOS # 0.4 K/uL (0.0-0.7); EOS % 3.7 % (0.0-4.0); HEMOGLOBIN 10.5 g/dL (12.0-18.0); LYMPH # 1.5 K/uL (1.0-4.3); LYMPH % 14.5 % (20.0-40.0); MEAN CELL VOLUME 81.9 fL (80.0-94.0); MEAN CORPUSCULAR HEMOGLOBIN 26.7 pg (27.0-31.0); MEAN CORPUSCULAR HGB CONC 32.6 g/dL (33.0-37.0); MEAN PLATELET VOLUME 7.9 fL (7.2-11.7); MONO # 1.1 K/uL (0.0-0.8); MONO % 10.2 % (0.0-10.0); NEUT # 7.3 K/uL (1.8-7.0); NEUT % 70.6 % (50.0-75.0); RBC 3.93 Mil/uL (4.40-5.90); WHITE BLOOD COUNT 10.3 K/uL (4.8-10.8)
[2017-12-03 06:56] LABS: ALB/GLOB RATIO 0.8 (1.0-2.1); ALBUMIN 2.8 g/dL (3.5-5.0); ALT/SGPT 38 U/L (21-72); AST/SGOT 27 U/L (17-59); BLOOD UREA NITROGEN 7 mg/dL (9-20); CALCIUM 7.9 mg/dl (8.6-10.4); GFR AFRICAN-AMERICAN > 60; GFR NON-AFRICAN AMERICAN > 60
--- NOTE | 2017-12-03 07:33 | CP.PCM.PN ---
<Serafin Quintanilla - Last Filed: 12/03/17 07:30> Subjective - Date & Time of Evaluation Date of Evaluation: 12/03/17 Time of Evaluation: 07:30 - Subjective Subjective: General Surgery Progress Note For Dr. New This 42M was seen and examined this Am at bedside no acute events overnight. PT CT with 120cc serosang output over 24 hours with small air leak. Wound vac on suction. Pt moving his bowels. No fevers chills chest pain nausea vomiting or diarrhea. No new complaints at this time. Objective - Vital Signs/Intake and Output Vital Signs (last 24 hours): Temp Pulse Resp BP Pulse Ox 97.7 F 87 19 147/71 99 12/03/17 00:00 12/03/17 06:00 12/03/17 06:00 12/03/17 05:50 12/03/17 06:00 Intake and Output: 12/03/17 12/03/17 06:59 18:59 Intake Total 2058.0 125 Output Total 650 10 Balance 1408.0 115 - Medications Medications: Current Medications Acetaminophen (Tylenol 325mg Tab) 650 mg PO Q6 PRN PRN Reason: Fever >100.4 F Last Admin: 12/01/17 07:39 Dose: 650 mg Aspirin (Ecotrin) 81 mg PO DAILY [facility] Last Admin: 12/02/17 10:14 Dose: 81 mg Enoxaparin Sodium (Lovenox) 40 mg SC DAILY [facility] Last Admin: 12/02/17 10:15 Dose: 40 mg Guaifenesin/Dextromethorphan (Robitussin Dm) 15 ml PO Q6H [facility] Last Admin: 12/03/17 06:59 Dose: Not Given Hydromorphone/Sodium Chloride (Dilaudid Pipelines Manager) 6 mg IV Q4H PRN; Protocol PRN Reason: Pain, Mild (1-3) Last Admin: 12/02/17 22:15 Dose: 6 mg Vancomycin HCl 1,250 mg/ (Sodium Chloride) 250 mls @ 166.6 mls/hr IVPB Q12H [facility] Last Admin: 12/03/17 02:57 Dose: 166.6 mls/hr Piperacillin Sod/Tazobactam Sod (Zosyn 3.375 Gm Iv Premix) 3.375 gm in 50 mls @ 100 mls/hr IVPB Q8H [facility] PRN Reason: Protocol Last Admin: 12/03/17 01:00 Dose: 100 mls/hr Metronidazole (Flagyl) 500 mg in 100 mls @ 100 mls/hr IVPB Q8 [facility] PRN Reason: Protocol Last Admin: 12/03/17 05:00 Dose: 100 mls/hr Sodium Chloride (Sodium Chloride 0.9%) 1,000 mls @ 125 mls/hr IV .Q8H [facility] Last Admin: 12/03/17 07:03 Dose: Not Given Losartan Potassium (Cozaar) 50 mg PO DAILY [facility] Last Admin: 12/02/17 10:14 Dose: 50 mg Metformin HCl (Glucophage Xr) 500 mg PO HS [facility] Last Admin: 12/02/17 22:18 Dose: Not Given Metoprolol Tartrate (Lopressor) 25 mg PO BID [facility] Last Admin: 12/02/17 17:52 Dose: 25 mg Morphine Sulfate (Morphine) 4 mg IVP Q4 PRN PRN Reason: Pain, moderate (4-7) Last Admin: 12/01/17 14:19 Dose: 4 mg Fluticasone/Salmeterol (Advair Diskus 250/50) 1 puff INH RQ12 [facility] Last Admin: 12/02/17 20:03 Dose: 1 puff Senna/Docusate Sodium (Senokot S 50 Mg-8.6 Mg) 1 tab PO BID [facility] Last Admin: 12/02/17 17:56 Dose: 1 tab - Labs Labs: 12/03/17 06:34 12/03/17 06:34 PT 14.2 SECONDS (9.7-12.2) H 11/29/17 14:41 INR 1.3 11/29/17 14:41 APTT 19 SECONDS (21-34) L 11/29/17 14:41 - Constitutional Appears: Non-toxic, No Acute Distress - Respiratory Exam Respiratory Exam: absent: Accessory Muscle Use, Respiratory Distress - Cardiovascular Exam Cardiovascular Exam: REGULAR RHYTHM. absent: Tachycardia Additional comments: small air leak - dressing c/d/i - 120cc output - GI/Abdominal Exam GI & Abdominal Exam: Soft. absent: Distended, Firm, Guarding, Tenderness Additional comments: wound vac with good seal - Neurological Exam Neurological Exam: Alert, Awake, Oriented x3 - Psychiatric Exam Psychiatric exam: Anxious - Skin Skin Exam: Normal Color, Warm Assessment and Plan - Assessment and Plan (Free Text) Assessment: 42M s/p left chest tube and left abdominal wall debridement 2/2 unknown infectious etiology Plan: cont ct and wound vac to suction will f/u cultures OOB to chair Pain control OR tomorrow for wound vac change D/W Dr. Virgen Quintanilla PGY2 <Andres New B - Last Filed: 12/03/17 19:10> Objective - Vital Signs/Intake and Output Vital Signs (last 24 hours): Temp Pulse Resp BP Pulse Ox 98.4 F 87 16 145/67 98 12/03/17 16:00 12/03/17 18:00 12/03/17 18:00 12/03/17 17:35 12/03/17 18:00 Intake and Output: 12/03/17 12/04/17 18:59 06:59 Intake Total 2317 Output Total 1980 Balance 337 - Medications Medications: Current Medications Acetaminophen (Tylenol 325mg Tab) 650 mg PO Q6 PRN PRN Reason: Fever >100.4 F Last Admin: 12/01/17 07:39 Dose: 650 mg Aspirin (Ecotrin) 81 mg PO DAILY [facility] Last Admin: 12/03/17 09:23 Dose: 81 mg Enoxaparin Sodium (Lovenox) 40 mg SC DAILY [facility] Last Admin: 12/03/17 09:24 Dose: 40 mg Guaifenesin/Dextromethorphan (Robitussin Dm) 15 ml PO Q6H [facility] Last Admin: 12/03/17 17:12 Dose: 15 ml Vancomycin HCl 1,250 mg/ (Sodium Chloride) 250 mls @ 166.6 mls/hr IVPB Q12H [facility] Last Admin: 12/03/17 14:12 Dose: 166.6 mls/hr Piperacillin Sod/Tazobactam Sod (Zosyn 3.375 Gm Iv Premix) 3.375 gm in 50 mls @ 100 mls/hr IVPB Q8H [facility] PRN Reason: Protocol Last Admin: 12/03/17 17:05 Dose: 100 mls/hr Metronidazole (Flagyl) 500 mg in 100 mls @ 100 mls/hr IVPB Q8 [facility] PRN Reason: Protocol Last Admin: 12/03/17 13:05 Dose: 100 mls/hr Sodium Chloride (Sodium Chloride 0.9%) 1,000 mls @ 75 mls/hr IV .[id number] [facility] Last Admin: 12/03/17 10:59 Dose: Not Given Losartan Potassium (Cozaar) 50 mg PO DAILY [facility] Last Admin: 12/03/17 09:23 Dose: 50 mg Metoprolol Tartrate (Lopressor) 25 mg PO BID [facility] Last Admin: 12/03/17 17:06 Dose: 25 mg Morphine Sulfate (Morphine) 4 mg IVP Q4 PRN PRN Reason: Pain, moderate (4-7) Last Admin: 12/03/17 16:08 Dose: 4 mg Fluticasone/Salmeterol (Advair Diskus 250/50) 1 puff INH RQ12 [facility] Last Admin: 12/03/17 07:52 Dose: 1 puff Senna/Docusate Sodium (Senokot S 50 Mg-8.6 Mg) 1 tab PO BID [facility] Last Admin: 12/03/17 17:06 Dose: 1 tab - Labs Labs: 12/03/17 06:34 12/03/17 06:34 PT 14.2 SECONDS (9.7-12.2) H 11/29/17 14:41 INR 1.3 11/29/17 14:41 APTT 19 SECONDS (21-34) L 11/29/17 14:41 Attending/Attestation - Attestation I have personally seen and examined this patient.: Yes I have fully participated in the care of the patient.: Yes I have reviewed all pertinent clinical information, including history, physical exam and plan: Yes Notes (Text): Pt is improving clinically Wound vac is functioning Pain is under control c.w current mx OR for Left flank wound debridement and wound vac change. Consent NPO, IVF C.w IV antibiotics
--- NOTE | 2017-12-03 07:35 | CP.PCM.PN ---
Subjective - Date & Time of Evaluation Date of Evaluation: 12/03/17 Time of Evaluation: 07:34 - Subjective Subjective: Thoracic Surgery Progress Note For Dr. Elizabeth This 42M was seen and examined this Am at bedside no acute events overnight. PT CT with 120cc serosang output over 24 hours with small air leak. Wound vac on suction. Pt moving his bowels. No fevers chills chest pain nausea vomiting or diarrhea. No new complaints at this time. Objective - Vital Signs/Intake and Output Vital Signs (last 24 hours): Temp Pulse Resp BP Pulse Ox 97.7 F 97 H 14 145/79 99 12/03/17 00:00 12/03/17 07:26 12/03/17 07:26 12/03/17 07:26 12/03/17 06:00 Intake and Output: 12/03/17 12/03/17 06:59 18:59 Intake Total 2058.0 125 Output Total 650 10 Balance 1408.0 115 - Medications Medications: Current Medications Acetaminophen (Tylenol 325mg Tab) 650 mg PO Q6 PRN PRN Reason: Fever >100.4 F Last Admin: 12/01/17 07:39 Dose: 650 mg Aspirin (Ecotrin) 81 mg PO DAILY [facility] Last Admin: 12/02/17 10:14 Dose: 81 mg Enoxaparin Sodium (Lovenox) 40 mg SC DAILY [facility] Last Admin: 12/02/17 10:15 Dose: 40 mg Guaifenesin/Dextromethorphan (Robitussin Dm) 15 ml PO Q6H [facility] Last Admin: 12/03/17 06:59 Dose: Not Given Hydromorphone/Sodium Chloride (Dilaudid Operation Manager) 6 mg IV Q4H PRN; Protocol PRN Reason: Pain, Mild (1-3) Last Admin: 12/02/17 22:15 Dose: 6 mg Vancomycin HCl 1,250 mg/ (Sodium Chloride) 250 mls @ 166.6 mls/hr IVPB Q12H [facility] Last Admin: 12/03/17 02:57 Dose: 166.6 mls/hr Piperacillin Sod/Tazobactam Sod (Zosyn 3.375 Gm Iv Premix) 3.375 gm in 50 mls @ 100 mls/hr IVPB Q8H [facility] PRN Reason: Protocol Last Admin: 12/03/17 01:00 Dose: 100 mls/hr Metronidazole (Flagyl) 500 mg in 100 mls @ 100 mls/hr IVPB Q8 [facility] PRN Reason: Protocol Last Admin: 12/03/17 05:00 Dose: 100 mls/hr Sodium Chloride (Sodium Chloride 0.9%) 1,000 mls @ 125 mls/hr IV .Q8H [facility] Last Admin: 12/03/17 07:03 Dose: Not Given Losartan Potassium (Cozaar) 50 mg PO DAILY [facility] Last Admin: 12/02/17 10:14 Dose: 50 mg Metformin HCl (Glucophage Xr) 500 mg PO HS [facility] Last Admin: 12/02/17 22:18 Dose: Not Given Metoprolol Tartrate (Lopressor) 25 mg PO BID [facility] Last Admin: 12/02/17 17:52 Dose: 25 mg Morphine Sulfate (Morphine) 4 mg IVP Q4 PRN PRN Reason: Pain, moderate (4-7) Last Admin: 12/01/17 14:19 Dose: 4 mg Fluticasone/Salmeterol (Advair Diskus 250/50) 1 puff INH RQ12 [facility] Last Admin: 12/02/17 20:03 Dose: 1 puff Senna/Docusate Sodium (Senokot S 50 Mg-8.6 Mg) 1 tab PO BID [facility] Last Admin: 12/02/17 17:56 Dose: 1 tab - Labs Labs: 12/03/17 06:34 12/03/17 06:34 PT 14.2 SECONDS (9.7-12.2) H 11/29/17 14:41 INR 1.3 11/29/17 14:41 APTT 19 SECONDS (21-34) L 11/29/17 14:41 - Constitutional Appears: Non-toxic, No Acute Distress - Respiratory Exam Respiratory Exam: absent: Accessory Muscle Use, Respiratory Distress - Cardiovascular Exam Cardiovascular Exam: REGULAR RHYTHM. absent: Tachycardia Additional comments: small air leak - dressing c/d/i - 120cc output - GI/Abdominal Exam GI & Abdominal Exam: Soft. absent: Distended, Firm, Guarding, Tenderness Additional comments: wound vac with good seal - Neurological Exam Neurological Exam: Alert, Awake, Oriented x3 - Psychiatric Exam Psychiatric exam: Anxious - Skin Skin Exam: Normal Color, Warm Assessment and Plan - Assessment and Plan (Free Text) Assessment: 42M s/p left chest tube and left abdominal wall debridement 2/2 unknown infectious etiology Plan: cont ct and wound vac to suction will f/u cultures OOB to chair Pain control OR tomorrow for wound vac change D/W Dr. Glenn Quintanilla PGY2
[2017-12-03] MEDS: Fluticasone-Salmeterol 250-50mcg Diskus INH SCH ×2 (07:52→19:26)
--- NOTE | 2017-12-03 08:50 | RAD ---
HISTORY: follow up COMPARISON: 12/02/2017 FINDINGS: LUNGS: No active pulmonary disease. PLEURA: Possible small right pleural effusion. No left pleural effusion. No pneumothorax. CARDIOVASCULAR: Normal. OSSEOUS STRUCTURES: No significant abnormalities. VISUALIZED UPPER ABDOMEN: Normal. OTHER FINDINGS: None. IMPRESSION: Possible small right pleural effusion.
[2017-12-03] MEDS: Enoxaparin 40 mg Syringe SC SCH (09:24)
[2017-12-03] MEDS: Docusate-Senna 50 mg-8.6 mg Tab PO SCH ×2 (09:25→17:06)
[2017-12-03] MEDS ORDERED: Sodium Chloride 0.9% 1,000 ML IV SCH (10:48)
[2017-12-03] MEDS: Morphine 4 MG/ML VIAL IVP PRN ×2 (11:12→16:08)
--- NOTE | 2017-12-03 14:14 | CP.CCUPN ---
CCU Subjective - Physician Review Events Since Last Encounter (Free Text): 12/03/17 14:12 mild pain on side of recent operation, but well controlled. CCU Objective - Vital Signs / Intake & Output Vital Signs (Last 4 hours): Vital Signs Temp Pulse Resp BP Pulse Ox 12/03/17 14:04 88 19 121/69 97 12/03/17 14:03 88 22 96 12/03/17 13:34 86 16 112/55 L 99 12/03/17 13:04 86 17 111/63 99 12/03/17 13:00 88 18 99 12/03/17 12:34 87 18 111/54 L 98 12/03/17 12:04 88 24 137/68 96 12/03/17 12:00 97.9 F 88 18 98 12/03/17 11:34 89 20 133/75 99 12/03/17 11:04 84 20 124/71 99 12/03/17 11:00 84 12 98 12/03/17 10:34 81 18 108/59 L 100 Intake and Output (Last 8hrs): Intake & Output 12/02/17 12/03/17 12/03/17 22:59 06:59 14:59 Intake Total 1135 1348.0 1625 Output Total 964 017 1394 Balance 575 698.0 315 Intake: Intake, IV Amount 775 988.0 825 Right PICC 775 988.0 825 Oral 360 360 800 Output: Chest Tube Drainage 10 10 Left 10 10 Drainage 250 left flank 250 Urine 583 229 4094 Urine, Voided 573 466 9165 Other: # Voids Urine, Voided 0 0 1 # Bowel Movements 0 0 0 - Medications Active Medications: Active Medications Generic Name Dose Route Start Last Admin Trade Name Freq PRN Reason Stop Dose Admin Acetaminophen 650 mg 11/30/17 12:34 12/01/17 07:39 Tylenol 325mg Tab PO 650 mg Q6 PRN Administration Fever >100.4 F Aspirin 81 mg 11/24/17 10:00 12/03/17 09:23 Ecotrin PO 81 mg DAILY [facility] Administration Enoxaparin Sodium 40 mg 11/30/17 10:45 12/03/17 09:24 Lovenox SC 40 mg DAILY [facility] Administration Guaifenesin/Dextromethorphan 15 ml 11/21/17 12:04 12/03/17 11:35 Robitussin Dm PO 15 ml Q6H [facility] Administration Vancomycin HCl 1,250 mg/ 250 mls @ 166.6 mls/hr 11/16/17 03:00 12/03/17 02:57 Sodium Chloride IVPB 166.6 mls/hr Q12H [facility] Administration Piperacillin Sod/Tazobactam Sod 3.375 gm in 50 mls @ 100 mls/hr 11/27/17 01: 45 12/03/17 08:50 Zosyn 3.375 Gm Iv Premix IVPB 100 mls/hr Q8H [facility] Administration Protocol Metronidazole 500 mg in 100 mls @ 100 mls/hr 12/01/17 14:00 12/03/17 13:05 Flagyl IVPB 100 mls/hr Q8 [facility] Administration Protocol Sodium Chloride 1,000 mls @ 75 mls/hr 12/03/17 10:48 12/03/17 10:59 Sodium Chloride 0.9% IV Not Given .[id number] [facility] Losartan Potassium 50 mg 11/15/17 10:00 12/03/17 09:23 Cozaar PO 50 mg DAILY [facility] Administration Metformin HCl 500 mg 11/23/17 22:00 12/02/17 22:18 Glucophage Xr PO Not Given [facility] Metoprolol Tartrate 25 mg 11/27/17 10:15 12/03/17 09:24 Lopressor PO 25 mg BID [facility] Administration Morphine Sulfate 4 mg 11/30/17 22:00 12/03/17 11:12 Morphine IVP 4 mg Q4 PRN Administration Pain, moderate (4-7) Fluticasone/Salmeterol 1 puff 11/15/17 08:00 12/03/17 07:52 Advair Diskus 250/50 INH 1 puff RQ12 [facility] Administration Senna/Docusate Sodium 1 tab 11/23/17 18:00 12/03/17 09:25 Senokot S 50 Mg-8.6 Mg PO Not Given BID [facility] - Patient Studies Lab Studies: Microbiology Studies 11/29/17 17:19 Gram Stain - Final Pleural Fluid Body Fluid Culture - Final NO GROWTH AFTER 4 DAYS 12/01/17 21:00 Gram Stain - Final Abdominal Fluid Body Fluid Culture - Preliminary NO GROWTH AFTER 2 DAYS 11/30/17 12:30 Blood Culture - Preliminary Blood NO GROWTH AFTER 48 HOURS 11/30/17 12:34 Blood Culture - Preliminary Blood NO GROWTH AFTER 48 HOURS Lab Studies 12/03/17 12/03/17 12/03/17 Range/Units 11:29 07:16 06:34 WBC (4.8-10.8) K/uL RBC (4.40-5.90) Mil/uL Hgb (12.0-18.0) g/dL Hct (35.0-51.0) % MCV (80.0-94.0) fL MCH (27.0-31.0) pg MCHC (33.0-37.0) g/dL RDW (11.5-14.5) % Plt Count (130-400) K/uL MPV (7.2-11.7) fL Neut % (Auto) (50.0-75.0) % Lymph % (Auto) (20.0-40.0) % [place] % (Auto) (0.0-10.0) % Eos % (Auto) (0.0-4.0) % Baso % (Auto) (0.0-2.0) % Neut # (Auto) (1.8-7.0) K/uL Lymph # (Auto) (1.0-4.3) K/uL [place] # (Auto) (0.0-0.8) K/uL Eos # (Auto) (0.0-0.7) K/uL Baso # (Auto) (0.0-0.2) K/uL Sodium 135 (132-148) mmol/L Potassium 3.9 (3.6-5.2) mmol/L Chloride 95 L (98-107) mmol/L Carbon Dioxide 30 (22-30) mmol/L Anion Gap 14 (10-20) BUN 7 L (9-20) mg/dL Creatinine 0.8 (0.8-1.5) mg/dL Est GFR ( Amer) > 60 Est GFR (Non-Af Amer) > 60 POC Glucose (mg/dL) 97 88 (65-110) mg/dL Random Glucose 85 (75-110) mg/dL Calcium 7.9 L (8.6-10.4) mg/dl Phosphorus 3.5 (2.5-4.5) mg/dL Magnesium 2.1 (1.6-2.3) mg/dL Total Bilirubin 0.4 (0.2-1.3) mg/dL AST 27 (17-59) U/L ALT 38 (21-72) U/L Alkaline Phosphatase 50 (38-126) U/L Total Protein 6.1 L (6.3-8.3) g/dL Albumin 2.8 L (3.5-5.0) g/dL Globulin 3.3 (2.2-3.9) gm/dL Albumin/Globulin Ratio 0.8 L (1.0-2.1) Pleural Total Protein g/dL Pleural LDH U/L Pleural Glucose mg/dL Pleural Lipase (<10) U/L 12/03/17 12/02/17 12/02/17 Range/Units 06:34 21:27 16:10 WBC 10.3 (4.8-10.8) K/uL RBC 3.93 L (4.40-5.90) Mil/uL Hgb 10.5 L (12.0-18.0) g/dL Hct 32.2 L (35.0-51.0) % MCV 81.9 (80.0-94.0) fL MCH 26.7 L (27.0-31.0) pg MCHC 32.6 L (33.0-37.0) g/dL RDW 16.0 H (11.5-14.5) % Plt Count 309 (130-400) K/uL MPV 7.9 (7.2-11.7) fL Neut % (Auto) 70.6 (50.0-75.0) % Lymph % (Auto) 14.5 L (20.0-40.0) % [place] % (Auto) 10.2 H (0.0-10.0) % Eos % (Auto) 3.7 (0.0-4.0) % Baso % (Auto) 1.0 (0.0-2.0) % Neut # (Auto) 7.3 H (1.8-7.0) K/uL Lymph # (Auto) 1.5 (1.0-4.3) K/uL [place] # (Auto) 1.1 H (0.0-0.8) K/uL Eos # (Auto) 0.4 (0.0-0.7) K/uL Baso # (Auto) 0.1 (0.0-0.2) K/uL Sodium (132-148) mmol/L Potassium (3.6-5.2) mmol/L Chloride (98-107) mmol/L Carbon Dioxide (22-30) mmol/L Anion Gap (10-20) BUN (9-20) mg/dL Creatinine (0.8-1.5) mg/dL Est GFR ( Amer) Est GFR (Non-Af Amer) POC Glucose (mg/dL) 93 85 (65-110) mg/dL Random Glucose (75-110) mg/dL Calcium (8.6-10.4) mg/dl Phosphorus (2.5-4.5) mg/dL Magnesium (1.6-2.3) mg/dL Total Bilirubin (0.2-1.3) mg/dL AST (17-59) U/L ALT (21-72) U/L Alkaline Phosphatase (38-126) U/L Total Protein (6.3-8.3) g/dL Albumin (3.5-5.0) g/dL Globulin (2.2-3.9) gm/dL Albumin/Globulin Ratio (1.0-2.1) Pleural Total Protein g/dL Pleural LDH U/L Pleural Glucose mg/dL Pleural Lipase (<10) U/L 11/29/17 11/29/17 11/29/17 Range/Units 18:35 18:34 18:34 WBC (4.8-10.8) K/uL RBC (4.40-5.90) Mil/uL Hgb (12.0-18.0) g/dL Hct (35.0-51.0) % MCV (80.0-94.0) fL MCH (27.0-31.0) pg MCHC (33.0-37.0) g/dL RDW (11.5-14.5) % Plt Count (130-400) K/uL MPV (7.2-11.7) fL Neut % (Auto) (50.0-75.0) % Lymph % (Auto) (20.0-40.0) % [place] % (Auto) (0.0-10.0) % Eos % (Auto) (0.0-4.0) % Baso % (Auto) (0.0-2.0) % Neut # (Auto) (1.8-7.0) K/uL Lymph # (Auto) (1.0-4.3) K/uL [place] # (Auto) (0.0-0.8) K/uL Eos # (Auto) (0.0-0.7) K/uL Baso # (Auto) (0.0-0.2) K/uL Sodium (132-148) mmol/L Potassium (3.6-5.2) mmol/L Chloride (98-107) mmol/L Carbon Dioxide (22-30) mmol/L Anion Gap (10-20) BUN (9-20) mg/dL Creatinine (0.8-1.5) mg/dL Est GFR ( Amer) Est GFR (Non-Af Amer) POC Glucose (mg/dL) (65-110) mg/dL Random Glucose (75-110) mg/dL Calcium (8.6-10.4) mg/dl Phosphorus (2.5-4.5) mg/dL Magnesium (1.6-2.3) mg/dL Total Bilirubin (0.2-1.3) mg/dL AST (17-59) U/L ALT (21-72) U/L Alkaline Phosphatase (38-126) U/L Total Protein (6.3-8.3) g/dL Albumin (3.5-5.0) g/dL Globulin (2.2-3.9) gm/dL Albumin/Globulin Ratio (1.0-2.1) Pleural Total Protein 5.1 g/dL Pleural LDH 3115 3078 U/L Pleural Glucose 57 mg/dL Pleural Lipase 8.0 (<10) U/L Laboratory Results - last 24 hr 11/29/17 11/29/17 11/29/17 18:34 18:34 18:35 WBC RBC Hgb Hct MCV MCH MCHC RDW Plt Count MPV Neut % (Auto) Lymph % (Auto) [place] % (Auto) Eos % (Auto) Baso % (Auto) Neut # (Auto) Lymph # (Auto) [place] # (Auto) Eos # (Auto) Baso # (Auto) Sodium Potassium Chloride Carbon Dioxide Anion Gap BUN Creatinine Est GFR ( Amer) Est GFR (Non-Af Amer) POC Glucose (mg/dL) Random Glucose Calcium Phosphorus Magnesium Total Bilirubin AST ALT Alkaline Phosphatase Total Protein Albumin Globulin Albumin/Globulin Ratio Pleural Total Protein 5.1 Pleural LDH 3078 3115 Pleural Glucose 57 Pleural Lipase 8.0 12/02/17 12/02/17 12/03/17 16:10 21:27 06:34 WBC 10.3 RBC 3.93 L Hgb 10.5 L Hct 32.2 L MCV 81.9 MCH 26.7 L MCHC 32.6 L RDW 16.0 H Plt Count 309 MPV 7.9 Neut % (Auto) 70.6 Lymph % (Auto) 14.[address] [place] % (Auto) 10.2 H Eos % (Auto) 3.7 Baso % (Auto) 1.0 Neut # (Auto) 7.3 H Lymph # (Auto) 1.5 [place] # (Auto) 1.1 H Eos # (Auto) 0.4 Baso # (Auto) 0.1 Sodium Potassium Chloride Carbon Dioxide Anion Gap BUN Creatinine Est GFR ( Amer) Est GFR (Non-Af Amer) POC Glucose (mg/dL) 85 93 Random Glucose Calcium Phosphorus Magnesium Total Bilirubin AST ALT Alkaline Phosphatase Total Protein Albumin Globulin Albumin/Globulin Ratio Pleural Total Protein Pleural LDH Pleural Glucose Pleural Lipase 12/03/17 12/03/17 12/03/17 06:34 07:16 11:29 WBC RBC Hgb Hct MCV MCH MCHC RDW Plt Count MPV Neut % (Auto) Lymph % (Auto) [place] % (Auto) Eos % (Auto) Baso % (Auto) Neut # (Auto) Lymph # (Auto) [place] # (Auto) Eos # (Auto) Baso # (Auto) Sodium 135 Potassium 3.9 Chloride 95 L Carbon Dioxide 30 Anion Gap 14 BUN 7 L Creatinine 0.8 Est GFR ( Amer) > 60 Est GFR (Non-Af Amer) > 60 POC Glucose (mg/dL) 88 97 Random Glucose 85 Calcium 7.9 L Phosphorus 3.5 Magnesium 2.1 Total Bilirubin 0.4 AST 27 ALT 38 Alkaline Phosphatase 50 Total Protein 6.1 L Albumin 2.8 L Globulin 3.3 Albumin/Globulin Ratio 0.8 L Pleural Total Protein Pleural LDH Pleural Glucose Pleural Lipase Fingerstick Blood Sugar Results: 97 Review of Systems - Review of Systems All systems: reviewed and no additional remarkable complaints except (mild pain) Critical Care Progress Note - Nutrition Nutrition: Nutrition Category Date Time Status Heart Healthy Diet [DIET] Diets 12/02/17 Breakfast Active NPO Diet [DIET] Diets 12/04/17 Breakfast Active Assessment/Plan (1) Abscess Assessment and plan: 42 year old male with past medical history of morbid obesity and TB, HTN. p/w left pleural effusion s/p drainage with chest tube. Surgical I&D (12/01/17) of abdominal wall abscess. Neuro: alert and oriented x 3, pain control with toradol and morphine prn. Pulm: chest tube draining well, decreasing amount, but still significant. CV: hemodynamically stable. HTN controlled with metoprolol and cozaar. Hem: no acute issues Renal: no acute issues Endo: no acute issues. GI: low sodium diet. Wound vac in place over drained abdominal wall abscess, draining well - Surgical team following. Dr. Ortega. ID: possible anaerobic infection from left lateral abdomen/chest wall, seen on CT abdomen, r/o actinomycosis or nocardia, or other etiology. F/u cultures and pathology sent out. Continue Flagyl IV, Zosyn and Vancomycin. ID - Dr. Rome DVT proph - lovenox GI proph - not currently indicated Code status - full code Critical Care Time spent 35 minutes Multi-disciplinary rounds were performed with house staff, nursing, speech therapy, respiratory therapy, pharmacy and nutrition with integrated input from the primary team/attending and other consulting services. The documented time is cumulative and includes review of patient data/exams/labs/chart review and examination of the patient on rounds and throughout the day; time is exclusive of any procedures or teaching time. Current Visit: Yes Status: Acute
--- NOTE | 2017-12-03 18:00 | CP.PCM.PN ---
Subjective - Date & Time of Evaluation Date of Evaluation: 12/03/17 Time of Evaluation: 12:20 - Subjective Subjective: clinically same Objective - Vital Signs/Intake and Output Vital Signs (last 24 hours): Temp Pulse Resp BP Pulse Ox 98.4 F 86 19 126/67 98 12/03/17 16:00 12/03/17 17:00 12/03/17 17:00 12/03/17 17:06 12/03/17 17:00 Intake and Output: 12/03/17 12/03/17 06:59 18:59 Intake Total 2058.0 1967 Output Total 650 1310 Balance 1408.0 657 - Medications Medications: Current Medications Acetaminophen (Tylenol 325mg Tab) 650 mg PO Q6 PRN PRN Reason: Fever >100.4 F Last Admin: 12/01/17 07:39 Dose: 650 mg Aspirin (Ecotrin) 81 mg PO DAILY [facility] Last Admin: 12/03/17 09:23 Dose: 81 mg Enoxaparin Sodium (Lovenox) 40 mg SC DAILY [facility] Last Admin: 12/03/17 09:24 Dose: 40 mg Guaifenesin/Dextromethorphan (Robitussin Dm) 15 ml PO Q6H [facility] Last Admin: 12/03/17 17:12 Dose: 15 ml Vancomycin HCl 1,250 mg/ (Sodium Chloride) 250 mls @ 166.6 mls/hr IVPB Q12H [facility] Last Admin: 12/03/17 14:12 Dose: 166.6 mls/hr Piperacillin Sod/Tazobactam Sod (Zosyn 3.375 Gm Iv Premix) 3.375 gm in 50 mls @ 100 mls/hr IVPB Q8H [facility] PRN Reason: Protocol Last Admin: 12/03/17 17:05 Dose: 100 mls/hr Metronidazole (Flagyl) 500 mg in 100 mls @ 100 mls/hr IVPB Q8 [facility] PRN Reason: Protocol Last Admin: 12/03/17 13:05 Dose: 100 mls/hr Sodium Chloride (Sodium Chloride 0.9%) 1,000 mls @ 75 mls/hr IV .[id number] [facility] Last Admin: 12/03/17 10:59 Dose: Not Given Losartan Potassium (Cozaar) 50 mg PO DAILY [facility] Last Admin: 03/18/18 09:23 Dose: 50 mg Metoprolol Tartrate (Lopressor) 25 mg PO BID [facility] Last Admin: 12/03/17 17:06 Dose: 25 mg Morphine Sulfate (Morphine) 4 mg IVP Q4 PRN PRN Reason: Pain, moderate (4-7) Last Admin: 12/03/17 16:08 Dose: 4 mg Fluticasone/Salmeterol (Advair Diskus 250/50) 1 puff INH RQ12 [facility] Last Admin: 12/03/17 07:52 Dose: 1 puff Senna/Docusate Sodium (Senokot S 50 Mg-8.6 Mg) 1 tab PO BID [facility] Last Admin: 12/03/17 17:06 Dose: 1 tab - Labs Labs: 12/03/17 06:34 12/03/17 06:34 PT 14.2 SECONDS (9.7-12.2) H 11/29/17 14:41 INR 1.3 11/29/17 14:41 APTT 19 SECONDS (21-34) L 11/29/17 14:41 - Constitutional Appears: Well - Head Exam Head Exam: ATRAUMATIC, NORMAL INSPECTION, NORMOCEPHALIC - Eye Exam Eye Exam: EOMI, Normal appearance, PERRL Pupil Exam: NORMAL ACCOMODATION, PERRL - ENT Exam ENT Exam: Mucous Membranes Moist, Normal Exam - Neck Exam Neck Exam: Full ROM, Normal Inspection. absent: Lymphadenopathy - Respiratory Exam Respiratory Exam: Decreased Breath Sounds - Cardiovascular Exam Cardiovascular Exam: REGULAR RHYTHM, +S1, +S2 - GI/Abdominal Exam GI & Abdominal Exam: Soft, Diminished Bowel Sounds - Rectal Exam Rectal Exam: Deferred
--- NOTE | 2017-12-03 23:06 | CP.PCM.PN ---
Subjective - Date & Time of Evaluation Date of Evaluation: 12/03/17 Time of Evaluation: 23:06 - Subjective Subjective: # POD [address] CHEST DRAINING SEROUS SANGUINOUS . lEFT FLANK ABSCESS WITH WOUND vac IN PLACE DRAINING. lABS REVIEWED aLL CULTURES NEGATIVE TO DATE oN iv zOSYN, iv VANCOMYCIN, AND iv fLAGYL. Objective - Vital Signs/Intake and Output Vital Signs (last 24 hours): Temp Pulse Resp BP Pulse Ox 98.3 F 86 20 123/67 99 12/03/17 20:00 12/03/17 20:04 12/03/17 20:04 12/03/17 20:04 12/03/17 20:04 Intake and Output: 12/03/17 12/04/17 18:59 06:59 Intake Total 2317 150 Output Total 1980 400 Balance 337 -250 - Medications Medications: Current Medications Acetaminophen (Tylenol 325mg Tab) 650 mg PO Q6 PRN PRN Reason: Fever >100.4 F Last Admin: 12/01/17 07:39 Dose: 650 mg Aspirin (Ecotrin) 81 mg PO DAILY [facility] Last Admin: 12/03/17 09:23 Dose: 81 mg Enoxaparin Sodium (Lovenox) 40 mg SC DAILY [facility] Last Admin: 12/03/17 09:24 Dose: 40 mg Guaifenesin/Dextromethorphan (Robitussin Dm) 15 ml PO Q6H [facility] Last Admin: 12/03/17 17:12 Dose: 15 ml Vancomycin HCl 1,250 mg/ (Sodium Chloride) 250 mls @ 166.6 mls/hr IVPB Q12H [facility] Last Admin: 12/03/17 14:12 Dose: 166.6 mls/hr Piperacillin Sod/Tazobactam Sod (Zosyn 3.375 Gm Iv Premix) 3.375 gm in 50 mls @ 100 mls/hr IVPB Q8H [facility] PRN Reason: Protocol Last Admin: 12/03/17 17:05 Dose: 100 mls/hr Metronidazole (Flagyl) 500 mg in 100 mls @ 100 mls/hr IVPB Q8 [facility] PRN Reason: Protocol Last Admin: 12/03/17 21:17 Dose: 100 mls/hr Losartan Potassium (Cozaar) 50 mg PO DAILY [facility] Last Admin: 12/03/17 09:23 Dose: 50 mg Metoprolol Tartrate (Lopressor) 25 mg PO BID [facility] Last Admin: 12/03/17 17:06 Dose: 25 mg Morphine Sulfate (Morphine) 2 mg IVP Q4H PRN PRN Reason: Pain, moderate (4-7) Last Admin: 12/03/17 21:17 Dose: 2 mg Fluticasone/Salmeterol (Advair Diskus 250/50) 1 puff INH RQ12 [facility] Last Admin: 12/03/17 19:26 Dose: 1 puff Senna/Docusate Sodium (Senokot S 50 Mg-8.6 Mg) 1 tab PO BID [facility] Last Admin: 12/03/17 17:06 Dose: 1 tab - Labs Labs: 12/03/17 06:34 12/03/17 06:34 PT 14.2 SECONDS (9.7-12.2) H 11/29/17 14:41 INR 1.3 11/29/17 14:41 APTT 19 SECONDS (21-34) L 11/29/17 14:41 - Constitutional Appears: No Acute Distress - Head Exam Head Exam: NORMAL INSPECTION - Eye Exam Eye Exam: EOMI, PERRL. absent: Scleral icterus - ENT Exam ENT Exam: Normal Oropharynx - Neck Exam Neck Exam: Normal Inspection. absent: Lymphadenopathy - Respiratory Exam Respiratory Exam: Decreased Breath Sounds (LEFT SIDE.) - Cardiovascular Exam Cardiovascular Exam: REGULAR RHYTHM, +S1, +S2 - GI/Abdominal Exam GI & Abdominal Exam: Soft, Tenderness, Hypoactive Bowel Sounds - Extremities Exam Extremities Exam: Pedal Edema. absent: Calf Tenderness (1PLUS) - Neurological Exam Neurological Exam: Alert, Awake, CN II-XII Intact, Oriented x3 - Psychiatric Exam Psychiatric exam: Normal Mood - Skin Skin Exam: Normal Color, Warm Assessment and Plan (1) Pneumonia Assessment & Plan: ON ABX. CT CARE PER TH. SURGERY. Status: Acute (2) Left upper quadrant abdominal swelling Assessment & Plan: ONTINUE IV ZOSYN 3.375 EVERY 8 HOURLY 11/15/17 CONTINUE IV VANCOMYCIN 1250 MG iv EVERY 12 HOURLY FOR mrsa STREP COVERAGE . ON IV FLAGYL 500MG IV Q8HRLY FOR ANAEROBIC COVERAGE. 12/01/[address] MARTINEZ. F/U CULTURES AND SPECIAL STAINS-P PER SURGERY. Status: Acute (3) Bronchitis Status: Acute (4) Morbid obesity Status: Acute
[2017-12-04] MEDS: Piperacill/Tazo 3.375gm in Dex 3.375 GM/50 ML BAG IVPB SCH ×3 (01:17→17:15)
--- NOTE | 2017-12-04 01:53 | PN ---
DATE: SUBJECTIVE: The patient is comfortable. He denies any chest pain or shortness of breath. PHYSICAL EXAMINATION: VITAL SIGNS: Blood pressure 108/71, heart rate 87, respirations 17, temperature 97.9. HEENT: Normocephalic. CHEST: Diminished breath sounds over the left base. HEART: S1 and S2 regular. EXTREMITIES: 1+ pitting edema. LABORATORY DATA: Today's SMA-7 is within normal limits except for chloride of 95 and BUN of 7. Today's hemoglobin and hematocrit 10.5 and 32.2, white count and platelet counts are within normal limits. ASSESSMENT 1. Large left pleural effusion, status post drainage and chest tube placement. 2. Status post left flank anterior abdominal wall abscess, incision and drainage. 3. Morbid obesity. 4. Sleep apnea. RECOMMENDATIONS: I did review the chest x-ray which was performed today which was suggestive of small right pleural effusion. Continue current Cozaar 60 mg once a day, aspirin 81 mg once a day, IV Flagyl, IV vancomycin, and IV Zosyn. Continue Lopressor 25 mg twice a day and Lovenox 20 mg subcutaneously daily. Lazaro Omalley MD
[2017-12-04] MEDS: metroNIDAZOLE IV 500 mg/100 ml 500 MG/100 ML BAG IVPB SCH ×3 (05:40→22:09)
[2017-12-04] MEDS: guaiFENesin DM 100 mg-10 mg/5 ml UD PO SCH ×3 (06:04→18:33)
[2017-12-04 06:28] LABS: BASO # 0.1 K/uL (0.0-0.2); BASO % 1.2 % (0.0-2.0); EOS # 0.3 K/uL (0.0-0.7); EOS % 3.9 % (0.0-4.0); HEMOGLOBIN 10.1 g/dL (12.0-18.0); LYMPH # 1.4 K/uL (1.0-4.3); MEAN CELL VOLUME 81.7 fL (80.0-94.0); MEAN CORPUSCULAR HEMOGLOBIN 26.7 pg (27.0-31.0); MEAN CORPUSCULAR HGB CONC 32.7 g/dL (33.0-37.0); MEAN PLATELET VOLUME 7.7 fL (7.2-11.7); MONO # 0.8 K/uL (0.0-0.8); MONO % 9.9 % (0.0-10.0); NEUT # 5.8 K/uL (1.8-7.0); RBC 3.79 Mil/uL (4.40-5.90); RED CELL DISTRIBUTION WIDTH 15.9 % (11.5-14.5); WHITE BLOOD COUNT 8.5 K/uL (4.8-10.8)
[2017-12-04 06:49] LABS: ALB/GLOB RATIO 0.8 (1.0-2.1); ALBUMIN 2.7 g/dL (3.5-5.0); ALT/SGPT 41 U/L (21-72); AST/SGOT 55 U/L (17-59); B-TYPE NATRIURETIC PEPTIDE 82.9 pg/mL (0-450); BLOOD UREA NITROGEN 7 mg/dL (9-20); CALCIUM 7.6 mg/dl (8.6-10.4); GFR AFRICAN-AMERICAN > 60; GFR NON-AFRICAN AMERICAN > 60
--- NOTE | 2017-12-04 07:08 | OP ---
PROCEDURE DATE: 12/01/2017 PREOPERATIVE DIAGNOSES: 1. Left flank soft tissue infection. 2. Left flank fluid collection. 3. Leukocytosis and tachycardia. POSTOPERATIVE DIAGNOSES: 1. Left flank soft tissue infection. 2. Left flank fluid collection. 3. Leukocytosis and tachycardia. PROCEDURE DONE: 1. Wide local excision of left flank, infected abdominal wall, 15 cm x 5 cm x 5 cm size. 2. Evacuation of left flank abdominal wall collection. 3. Excisional debridement of left flank abdominal wall infected cavity. 4. Negative pressure wound VAC therapy of 15 cm x 10 cm x 5 cm size. SURGEON: Andres New MD [employer] TEAMMATE: Channing Ragland, PGY-3 Resident. TYPE OF ANESTHESIA: General endotracheal tube anesthesia. ESTIMATED BLOOD LOSS: Around 50 mL. DRAIN: The wound VAC was placed as a drain. COMPLICATIONS: None. PATHOLOGY: 1. The fluid was sent for actinomycosis and Nocardia. 2. Soft tissue of the abdominal wall was sent for pathology biopsy for actinomycosis, Nocardia and for the Gram stain. INTRAOPERATIVE FINDINGS: The patient had approximately 16 cm x 10 cm x 15 cm large left flank soft tissue collection. DESCRIPTION OF PROCEDURE: On intraoperative steps, this is a 42-year-old male who was initially admitted with left flank cellulitis and eventually the patient developed left pleural effusion and the patient underwent IR-guided drainage and after complete white-out of the left lung, there is an underlying left side chest tube placement with evacuation of the left hemothorax and repeated the fourth CT scan of the abdomen and pelvis suggestive of left flank soft tissue collection with air-pocket and phlegmonous changes and the patient was consented for excisional debridement of left flank abdominal wall as well as evacuation and drainage of abdominal wall collection and wound VAC placement. The patient was brought to the OR, placed supine on the operating table. After induction of the anesthesia, the left flank and chest area were prepped and draped in usual sterile fashion. An elliptical 15 cm x 5 cm incision was made after incising skin and subcutaneous tissue. The incision was carried down into the deep subcutaneous tissue and abdominal wall collection was entered. The infected left flank abdominal wall was excised. The size of the abdominal wall was 15 cm x 5 cm x 5 cm size and it was sent off the table for pathology. The fluid was evacuated and it was sent for actinomycosis and Nocardia and the excisional debridement of the cavity was done with blunt and sharp dissection and capsule was also sent for the pathology. After that, the wound VAC was placed and negative pressure wound VAC therapy was applied and wound VAC was functioning without any leak and therefore proper hemostasis was achieved. The cavity was irrigated and the patient tolerated the procedure well. The patient was extubated in the OR, sent to the ICU for further care. Andres New MD MTDMaria Luisa
[2017-12-04] MEDS: Fluticasone-Salmeterol 250-50mcg Diskus INH SCH ×2 (08:30→20:09)
[2017-12-04] MEDS: Albuterol-Ipratrop 3 mg / 0.5 (3 ml) UD INH PRN ×2 (08:30→13:24)
--- NOTE | 2017-12-04 08:31 | RAD ---
HISTORY: eval effusion COMPARISON: 12/03/2017 FINDINGS: LUNGS: No infiltrate. Linear scar/ atelectasis at right base. PLEURA: Possible small right pleural effusion with hazy opacity at right costophrenic angle. No left pleural effusion. No pneumothorax. CARDIOVASCULAR: Normal. OSSEOUS STRUCTURES: No significant abnormalities. VISUALIZED UPPER ABDOMEN: Normal. OTHER FINDINGS: None. IMPRESSION: Possible small right pleural effusion. Right basilar linear atelectasis. No acute infiltrate.
[2017-12-04] MEDS: Docusate-Senna 50 mg-8.6 mg Tab PO SCH ×2 (10:00→18:20)
[2017-12-04] MEDS: Enoxaparin 40 mg Syringe SC SCH ×2 (11:27→18:20)
--- NOTE | 2017-12-04 11:47 | CP.CCUPN ---
<Jessica Brown - Last Filed: 12/04/17 14:36> CCU Subjective - Physician Review Subjective (Free Text): 12/04/17 11:45 Patient seen and examined at bedside. Per nursing no acute events overnight. Patient is NPO for surgical debridement of Left abdominal wall wound. Patient currently with wound vac and left sided chest tube. Currently offering no complaints at this time. CCU Objective - Vital Signs / Intake & Output Intake and Output (Last 8hrs): Intake & Output 12/03/17 12/04/17 12/04/17 22:59 06:59 14:59 Intake Total 1017 400 Output Total 1070 880 0 Balance -53 -480 0 Weight 216.001 kg Intake: Intake, IV Amount 767 400 Right PICC 767 400 Oral 250 Output: Chest Tube Drainage 20 80 Left 20 80 Drainage 250 100 left flank 250 100 Urine 800 700 0 Urine, Voided 800 700 0 Other: # Voids Urine, Voided 0 # Bowel Movements 0 0 - Physical Exam Head: Positive for: Atraumatic, Normocephalic Pupils: Positive for: PERRL Extroacular Muscles: Positive for: EOMI Conjunctiva: Positive for: Normal Mouth: Positive for: Moist Mucous Membranes Neck: Positive for: Normal Range of Motion Respiratory/Chest: Positive for: Good Air Exchange, Other (Left sided chest tube in place draining serosanginous fluid, wound vac in place ). Negative for : Respiratory Distress, Accessory Muscle Use Cardiovascular: Positive for: Regular Rate and Rhythm, Normal S1, S2 Abdomen: Positive for: Distention (Obese abdomen ) Skin: Positive for: Warm, Dry, Normal Color Psychiatric: Positive for: Alert, Oriented x 3 - Medications Active Medications: Active Medications Generic Name Dose Route Start Last Admin Trade Name Freq PRN Reason Stop Dose Admin Acetaminophen 650 mg 11/30/17 12:34 12/01/17 07:39 Tylenol 325mg Tab PO 650 mg Q6 PRN Administration Fever >100.4 F Albuterol/Ipratropium 3 ml 12/04/17 07:55 12/04/17 08:30 Duoneb 3 Mg/0.5 Mg (3 Ml) Ud INH 3 ml RQ6 PRN Administration Shortness of Breath Aspirin 81 mg 11/24/17 10:00 12/03/17 09:23 Ecotrin PO 81 mg DAILY ZANE Administration Enoxaparin Sodium 40 mg 11/30/17 10:45 12/03/17 09:24 Lovenox SC 40 mg DAILY ZANE Administration Guaifenesin/Dextromethorphan 15 ml 11/21/17 12:04 12/04/17 06:04 Robitussin Dm PO Not Given Q6H ZANE Vancomycin HCl 1,250 mg/ 250 mls @ 166.6 mls/hr 11/16/17 03:00 12/04/17 02:08 Sodium Chloride IVPB 166.6 mls/hr Q12H ZANE Administration Piperacillin Sod/Tazobactam Sod 3.375 gm in 50 mls @ 100 mls/hr 11/27/17 01: 45 12/04/17 09:28 Zosyn 3.375 Gm Iv Premix IVPB 100 mls/hr Q8H ZANE Administration Protocol Metronidazole 500 mg in 100 mls @ 100 mls/hr 12/01/17 14:00 12/04/17 05:40 Flagyl IVPB 100 mls/hr Q8 ZANE Administration Protocol Losartan Potassium 50 mg 11/15/17 10:00 12/03/17 09:23 Cozaar PO 50 mg DAILY ZANE Administration Metoprolol Tartrate 25 mg 11/27/17 10:15 12/03/17 17:06 Lopressor PO 25 mg BID ZANE Administration Morphine Sulfate 2 mg 12/03/17 21:07 12/04/17 07:47 Morphine IVP 2 mg Q4H PRN Administration Pain, moderate (4-7) Fluticasone/Salmeterol 1 puff 11/15/17 08:00 12/04/17 08:30 Advair Diskus 250/50 INH 1 puff RQ12 ZANE Administration Senna/Docusate Sodium 1 tab 11/23/17 18:00 12/03/17 17:06 Senokot S 50 Mg-8.6 Mg PO 1 tab BID ZANE Administration - Patient Studies Lab Studies: Microbiology Studies 11/26/17 10:50 Mycobacterial Culture - Preliminary Other: Please Indicate 11/30/17 12:30 Blood Culture - Preliminary Blood NO GROWTH AFTER 3 DAYS 11/30/17 12:34 Blood Culture - Preliminary Blood NO GROWTH AFTER 3 DAYS 12/01/17 21:00 Mycobacterial Culture - Preliminary Other: Please Indicate 11/29/17 17:19 Gram Stain - Final Pleural Fluid Body Fluid Culture - Final NO GROWTH AFTER 4 DAYS 12/01/17 21:00 Gram Stain - Final Abdominal Fluid Body Fluid Culture - Preliminary NO GROWTH AFTER 2 DAYS Lab Studies 12/04/17 12/04/17 12/04/17 Range/Units 09:10 06:21 06:21 WBC (4.8-10.8) K/uL RBC (4.40-5.90) Mil/uL Hgb (12.0-18.0) g/dL Hct (35.0-51.0) % MCV (80.0-94.0) fL MCH (27.0-31.0) pg MCHC (33.0-37.0) g/dL RDW (11.5-14.5) % Plt Count (130-400) K/uL MPV (7.2-11.7) fL Neut % (Auto) (50.0-75.0) % Lymph % (Auto) (20.0-40.0) % [place] % (Auto) (0.0-10.0) % Eos % (Auto) (0.0-4.0) % Baso % (Auto) (0.0-2.0) % Neut # (Auto) (1.8-7.0) K/uL Lymph # (Auto) (1.0-4.3) K/uL [place] # (Auto) (0.0-0.8) K/uL Eos # (Auto) (0.0-0.7) K/uL Baso # (Auto) (0.0-0.2) K/uL Sodium 138 (132-148) mmol/L Potassium 3.9 (3.6-5.2) mmol/L Chloride 99 (98-107) mmol/L Carbon Dioxide 31 H (22-30) mmol/L Anion Gap 12 (10-20) BUN 7 L (9-20) mg/dL Creatinine 0.9 (0.8-1.5) mg/dL Est GFR ( Amer) > 60 Est GFR (Non-Af Amer) > 60 Random Glucose 90 (75-110) mg/dL Calcium 7.6 L (8.6-10.4) mg/dl Phosphorus 3.6 (2.5-4.5) mg/dL Magnesium 2.1 (1.6-2.3) mg/dL Total Bilirubin 0.2 (0.2-1.3) mg/dL AST 55 (17-59) U/L ALT 41 (21-72) U/L Alkaline Phosphatase 53 (38-126) U/L Lactate Dehydrogenase 545 (313-618) U/L NT-Pro-B Natriuret Pep 82.9 (0-450) pg/mL Total Protein 5.9 L (6.3-8.3) g/dL Albumin 2.7 L (3.5-5.0) g/dL Globulin 3.2 (2.2-3.9) gm/dL Albumin/Globulin Ratio 0.8 L (1.0-2.1) Random Vancomycin 18.53 ug/mL 12/04/17 Range/Units 06:21 WBC 8.5 (4.8-10.8) K/uL RBC 3.79 L (4.40-5.90) Mil/uL Hgb 10.1 L (12.0-18.0) g/dL Hct 31.0 L (35.0-51.0) % MCV 81.7 (80.0-94.0) fL MCH 26.7 L (27.0-31.0) pg MCHC 32.7 L (33.0-37.0) g/dL RDW 15.9 H (11.5-14.5) % Plt Count 341 (130-400) K/uL MPV 7.7 (7.2-11.7) fL Neut % (Auto) 68.0 (50.0-75.0) % Lymph % (Auto) 17.0 L (20.0-40.0) % [place] % (Auto) 9.9 (0.0-10.0) % Eos % (Auto) 3.9 (0.0-4.0) % Baso % (Auto) 1.2 (0.0-2.0) % Neut # (Auto) 5.8 (1.8-7.0) K/uL Lymph # (Auto) 1.4 (1.0-4.3) K/uL [place] # (Auto) 0.8 (0.0-0.8) K/uL Eos # (Auto) 0.3 (0.0-0.7) K/uL Baso # (Auto) 0.1 (0.0-0.2) K/uL Sodium (132-148) mmol/L Potassium (3.6-5.2) mmol/L Chloride (98-107) mmol/L Carbon Dioxide (22-30) mmol/L Anion Gap (10-20) BUN (9-20) mg/dL Creatinine (0.8-1.5) mg/dL Est GFR ( Amer) Est GFR (Non-Af Amer) Random Glucose (75-110) mg/dL Calcium (8.6-10.4) mg/dl Phosphorus (2.5-4.5) mg/dL Magnesium (1.6-2.3) mg/dL Total Bilirubin (0.2-1.3) mg/dL AST (17-59) U/L ALT (21-72) U/L Alkaline Phosphatase (38-126) U/L Lactate Dehydrogenase (313-618) U/L NT-Pro-B Natriuret Pep (0-450) pg/mL Total Protein (6.3-8.3) g/dL Albumin (3.5-5.0) g/dL Globulin (2.2-3.9) gm/dL Albumin/Globulin Ratio (1.0-2.1) Random Vancomycin ug/mL Laboratory Results - last 24 hr 12/04/17 12/04/17 12/04/17 06:21 06:21 06:21 WBC 8.5 RBC 3.79 L Hgb 10.1 L Hct 31.0 L MCV 81.7 MCH 26.7 L MCHC 32.7 L RDW 15.9 H Plt Count 341 MPV 7.7 Neut % (Auto) 68.0 Lymph % (Auto) 17.0 L [place] % (Auto) 9.9 Eos % (Auto) 3.9 Baso % (Auto) 1.2 Neut # (Auto) 5.8 Lymph # (Auto) 1.4 [place] # (Auto) 0.8 Eos # (Auto) 0.3 Baso # (Auto) 0.1 Sodium 138 Potassium 3.9 Chloride 99 Carbon Dioxide 31 H Anion Gap 12 BUN 7 L Creatinine 0.9 Est GFR ( Amer) > 60 Est GFR (Non-Af Amer) > 60 Random Glucose 90 Calcium 7.6 L Phosphorus 3.6 Magnesium 2.1 Total Bilirubin 0.2 AST 55 ALT 41 Alkaline Phosphatase 53 Lactate Dehydrogenase NT-Pro-B Natriuret Pep 82.9 Total Protein 5.9 L Albumin 2.7 L Globulin 3.2 Albumin/Globulin Ratio 0.8 L Random Vancomycin 18.53 12/04/17 09:10 WBC RBC Hgb Hct MCV MCH MCHC RDW Plt Count MPV Neut % (Auto) Lymph % (Auto) [place] % (Auto) Eos % (Auto) Baso % (Auto) Neut # (Auto) Lymph # (Auto) [place] # (Auto) Eos # (Auto) Baso # (Auto) Sodium Potassium Chloride Carbon Dioxide Anion Gap BUN Creatinine Est GFR ( Amer) Est GFR (Non-Af Amer) Random Glucose Calcium Phosphorus Magnesium Total Bilirubin AST ALT Alkaline Phosphatase Lactate Dehydrogenase 545 NT-Pro-B Natriuret Pep Total Protein Albumin Globulin Albumin/Globulin Ratio Random Vancomycin Fingerstick Blood Sugar Results: 97 Critical Care Progress Note - Nutrition Nutrition: Nutrition Category Date Time Status NPO Diet [DIET] Diets 12/04/17 Breakfast Active Assessment/Plan - Assessment and Plan (Free Text) Assessment: Patient is a 42 year old male with past medical history of morbid obesity presented with large left pleural effusion s/p drainage with chest tube. Surgical I&D (12/01/17) of abdominal wall abscess. Neurology: -Patient is AAOx3 -Stable, afebrile -Pain control with morphine prn Cardiology: -Patient with a history of HTN -Will continue Cozaar 50mg po daily -Metoprolol 25mg PO BID -Continue Aspirin 81mg PO daily Respiratory: -Sputum for AFB negative x 3, isolation was discontinued -Patient with left sided chest tube for left pleural effusion -Encourage ISS use -CXR 12/04: possible small right pleural effusion. Right basilar linear atelectasis. No acute infiltrate -CT chest with contrast: Status post chest tube placement left pleural space. Near complete resolution of left pleural effusion. Substantial re-expansion of the left lung. Residual consolidative changes in the left lower lobe and left upper lobe. -Robitussin 15ml Q6H for cough -Morphine 4mg Q4H prn pain -Duonebs Q6H ZANE, Continue Advair 1 puff Q12H -CT surgeon Dr Elizabeth consulted, help appreciated Hematology -Hgb stable, s/p 3 units of PRBCs -Approximately 5L of bloody pleural fluid drained in the OR -F/U serial CBCs GI: -No acute issues at this time Endocrine: -Patient with history of Impaired Glucose Tolerance, Hgba1c 6.0 -Continue Metformin 500mg QHS, accuchecks Infectious Disease: -Patient was with possile anaerobic infection from left lateral abdomen/chest wall that was seen on CT -s/p debridement of left abdominal wall abscess, wound vac in place, draining well -Fluid cultures have shown no growth currently, f/u actinomyces and nocardia -Patient was also being treated for Pneumonia, Legionella and mycoplasma negative -Leukocytosis resolved -Antibiotics: Zosyn 3.375mg IV Q8H, Vancomycin 1250mg Q12H ,Flagyl 500mg Q8H -Infectious Disease on consult, Dr Rome, help appreciated -General surgery on consult, Dr New, help appreciated GI/DVT ppx: -GI ppx not indicated at this time -SCDs, Lovenox 40mg SC daily <Devon Simmons - Last Filed: 12/06/17 14:04> CCU Objective - Vital Signs / Intake & Output Vital Signs (Last 4 hours): Vital Signs Temp Pulse Resp BP Pulse Ox 12/06/17 13:37 106 H 19 161/82 H 91 L 12/06/17 13:00 101 H 28 H 91 L 12/06/17 12:37 100 H 25 H 153/92 H 91 L 12/06/17 12:00 97.8 F 104 H 36 H 90 L 12/06/17 11:37 107 H 22 145/86 92 L 12/06/17 11:34 106 H 12/06/17 10:08 137/82 Intake and Output (Last 8hrs): Intake & Output 12/05/17 12/06/17 12/06/17 22:59 06:59 14:59 Intake Total 850 450 360 Output Total 974 706 300 Balance -124 -256 60 Weight 491 lb Intake: Intake, IV Amount 450 350 Right PICC 450 350 Oral 400 100 360 Output: Chest Tube Drainage 24 6 Left 24 6 Drainage 50 0 left flank 50 0 Urine 900 700 300 Urine, Voided 900 700 300 - Medications Active Medications: Active Medications Generic Name Dose Route Start Last Admin Trade Name Freq PRN Reason Stop Dose Admin Acetaminophen 650 mg 11/30/17 12:34 12/01/17 07:39 Tylenol 325mg Tab PO 650 mg Q6 PRN Administration Fever >100.4 F Albuterol/Ipratropium 3 ml 12/04/17 07:55 12/06/17 07:45 Duoneb 3 Mg/0.5 Mg (3 Ml) Ud INH 3 ml RQ6 PRN Administration Shortness of Breath Aspirin 81 mg 11/24/17 10:00 12/06/17 10:08 Ecotrin PO 81 mg DAILY ZANE Administration Enoxaparin Sodium 40 mg 11/30/17 10:45 12/05/17 09:38 Lovenox SC 40 mg DAILY ZANE Administration Guaifenesin/Dextromethorphan 15 ml 11/21/17 12:04 12/06/17 13:50 Robitussin Dm PO Not Given Q6H ZANE Vancomycin HCl 1,250 mg/ 250 mls @ 166.6 mls/hr 11/16/17 03:00 12/06/17 02:14 Sodium Chloride IVPB 166.6 mls/hr Q12H ZANE Administration Metronidazole 500 mg in 100 mls @ 100 mls/hr 12/01/17 14:00 12/06/17 14:02 Flagyl IVPB 100 mls/hr Q8 ZANE Administration Protocol Losartan Potassium 50 mg 11/15/17 10:00 12/06/17 10:07 Cozaar PO 50 mg DAILY ZANE Administration Metoprolol Tartrate 25 mg 11/27/17 10:15 12/06/17 10:08 Lopressor PO 25 mg BID ZANE Administration Morphine Sulfate 2 mg 12/03/17 21:07 12/06/17 05:21 Morphine IVP 2 mg Q4H PRN Administration Pain, moderate (4-7) Fluticasone/Salmeterol 1 puff 11/15/17 08:00 12/06/17 07:46 Advair Diskus 250/50 INH 1 puff RQ12 ZANE Administration Senna/Docusate Sodium 1 tab 11/23/17 18:00 12/06/17 10:07 Senokot S 50 Mg-8.6 Mg PO Not Given BID ZANE - Patient Studies Lab Studies: Microbiology Studies 11/27/17 15:45 Mycobacterial Culture - Preliminary Other: Please Indicate 11/30/17 12:30 Blood Culture - Final Blood NO GROWTH AFTER 5 DAYS Gram Stain - Final TEST NOT PERFORMED 11/30/17 12:34 Blood Culture - Final Blood NO GROWTH AFTER 5 DAYS Gram Stain - Final TEST NOT PERFORMED 12/01/17 21:00 Gram Stain - Final Abdominal Fluid Anaerobic Culture - Final NO ANAEROBES ISOLATED. Body Fluid Culture - Final No growth. Lab Studies 12/06/17 12/06/17 12/06/17 Range/Units 06:24 06:24 06:24 WBC 10.5 (4.8-10.8) K/uL RBC 3.73 L (4.40-5.90) Mil/uL Hgb 9.9 L (12.0-18.0) g/dL Hct 30.4 L (35.0-51.0) % MCV 81.6 (80.0-94.0) fL MCH 26.6 L (27.0-31.0) pg MCHC 32.6 L (33.0-37.0) g/dL RDW 16.2 H (11.5-14.5) % Plt Count 433 H (130-400) K/uL MPV 7.3 (7.2-11.7) fL Neut % (Auto) 70.5 (50.0-75.0) % Lymph % (Auto) 16.2 L (20.0-40.0) % [place] % (Auto) 8.4 (0.0-10.0) % Eos % (Auto) 3.8 (0.0-4.0) % Baso % (Auto) 1.1 (0.0-2.0) % Neut # (Auto) 7.4 H (1.8-7.0) K/uL Lymph # (Auto) 1.7 (1.0-4.3) K/uL [place] # (Auto) 0.9 H (0.0-0.8) K/uL Eos # (Auto) 0.4 (0.0-0.7) K/uL Baso # (Auto) 0.1 (0.0-0.2) K/uL Sodium 139 (132-148) mmol/L Potassium 4.1 (3.6-5.2) mmol/L Chloride 101 (98-107) mmol/L Carbon Dioxide 30 (22-30) mmol/L Anion Gap 13 (10-20) BUN 7 L (9-20) mg/dL Creatinine 0.9 (0.8-1.5) mg/dL Est GFR ( Amer) > 60 Est GFR (Non-Af Amer) > 60 Random Glucose 88 (75-110) mg/dL Calcium 8.1 L (8.6-10.4) mg/dl Phosphorus 4.3 (2.5-4.5) mg/dL Magnesium 2.2 (1.6-2.3) mg/dL Total Bilirubin 0.3 (0.2-1.3) mg/dL AST 61 H (17-59) U/L ALT 57 (21-72) U/L Alkaline Phosphatase 61 (38-126) U/L Total Protein 6.1 L (6.3-8.3) g/dL Albumin 2.8 L (3.5-5.0) g/dL Globulin 3.3 (2.2-3.9) gm/dL Albumin/Globulin Ratio 0.8 L (1.0-2.1) JOSEPH 6 Profile Negative (NEGATIVE) Laboratory Results - last 24 hr 12/06/17 12/06/17 12/06/17 06:24 06:24 06:24 WBC 10.5 RBC 3.73 L Hgb 9.9 L Hct 30.4 L MCV 81.6 MCH 26.6 L MCHC 32.6 L RDW 16.2 H Plt Count 433 H MPV 7.3 Neut % (Auto) 70.5 Lymph % (Auto) 16.2 L [place] % (Auto) 8.4 Eos % (Auto) 3.8 Baso % (Auto) 1.1 Neut # (Auto) 7.4 H Lymph # (Auto) 1.7 [place] # (Auto) 0.9 H Eos # (Auto) 0.4 Baso # (Auto) 0.1 Sodium 139 Potassium 4.1 Chloride 101 Carbon Dioxide 30 Anion Gap 13 BUN 7 L Creatinine 0.9 Est GFR ( Amer) > 60 Est GFR (Non-Af Amer) > 60 Random Glucose 88 Calcium 8.1 L Phosphorus 4.3 Magnesium 2.2 Total Bilirubin 0.3 AST 61 H ALT 57 Alkaline Phosphatase 61 Total Protein 6.1 L Albumin 2.8 L Globulin 3.3 Albumin/Globulin Ratio 0.8 L JOSEPH 6 Profile Negative Critical Care Progress Note - Nutrition Nutrition: Nutrition Category Date Time Status Heart Healthy Diet [DIET] Diets 12/06/17 Lunch Active Attending/Attestation - Attestation I have personally seen and examined this patient.: Yes I have fully participated in the care of the patient.: Yes I have reviewed all pertinent clinical information: Yes Notes (Text): 12/04/17 14:00 pt is seen examined evaluated agree with resident note
[2017-12-04] MEDS ORDERED: Ketamine 50 mg/ml Inj (10 ml) ONE (16:54)
[2017-12-04] MEDS ORDERED: Midazolam 2 MG/2 ML VIAL ONE ×2 (17:05→17:09)
[2017-12-04] MEDS ORDERED: metroNIDAZOLE IV 500 mg/100 ml 500 MG/100 ML BAG ONE (17:12)
[2017-12-04] MEDS: Lidocaine/Epinephrine 1% 1:100000 10 ML IJ ONE ×2 (17:19→17:37)
[2017-12-04] MEDS: Bupivacaine HCl 0.25% PF (10 ml) Inj ONE ×2 (17:19→17:36)
--- NOTE | 2017-12-04 17:44 | CP.PCM.PN ---
Subjective - Date & Time of Evaluation Date of Evaluation: 12/04/17 Time of Evaluation: 13:40 - Subjective Subjective: clinically same Objective - Vital Signs/Intake and Output Vital Signs (last 24 hours): Temp Pulse Resp BP Pulse Ox 98.5 F 108 H 19 133/86 98 12/04/17 16:00 12/04/17 16:54 12/04/17 16:54 12/04/17 16:54 12/04/17 16:00 Intake and Output: 12/04/17 12/04/17 06:59 18:59 Intake Total 725 50 Output Total 1280 0 Balance -555 50 - Medications Medications: Current Medications Acetaminophen (Tylenol 325mg Tab) 650 mg PO Q6 PRN PRN Reason: Fever >100.4 F Last Admin: 12/01/17 07:39 Dose: 650 mg Albuterol/Ipratropium (Duoneb 3 Mg/0.5 Mg (3 Ml) Ud) 3 ml INH RQ6 PRN PRN Reason: Shortness of Breath Last Admin: 12/04/17 13:24 Dose: 3 ml Aspirin (Ecotrin) 81 mg PO DAILY [facility] Last Admin: 12/03/17 09:23 Dose: 81 mg Enoxaparin Sodium (Lovenox) 40 mg SC DAILY [facility] Last Admin: 12/03/17 09:24 Dose: 40 mg Guaifenesin/Dextromethorphan (Robitussin Dm) 15 ml PO Q6H [facility] Last Admin: 12/04/17 12:00 Dose: Not Given Vancomycin HCl 1,250 mg/ (Sodium Chloride) 250 mls @ 166.6 mls/hr IVPB Q12H [facility] Last Admin: 12/04/17 02:08 Dose: 166.6 mls/hr Piperacillin Sod/Tazobactam Sod (Zosyn 3.375 Gm Iv Premix) 3.375 gm in 50 mls @ 100 mls/hr IVPB Q8H [facility] PRN Reason: Protocol Last Admin: 12/04/17 09:28 Dose: 100 mls/hr Metronidazole (Flagyl) 500 mg in 100 mls @ 100 mls/hr IVPB Q8 [facility]ANE PRN Reason: Protocol Last Admin: 12/04/17 14:00 Dose: 100 mls/hr Losartan Potassium (Cozaar) 50 mg PO DAILY [facility] Last Admin: 12/03/17 09:23 Dose: 50 mg Metoprolol Tartrate (Lopressor) 25 mg PO BID [facility] Last Admin: 12/03/17 17:06 Dose: 25 mg Morphine Sulfate (Morphine) 2 mg IVP Q4H PRN PRN Reason: Pain, moderate (4-7) Last Admin: 12/04/17 07:47 Dose: 2 mg Fluticasone/Salmeterol (Advair Diskus 250/50) 1 puff INH RQ12 [facility] Last Admin: 12/04/17 08:30 Dose: 1 puff Senna/Docusate Sodium (Senokot S 50 Mg-8.6 Mg) 1 tab PO BID [facility] Last Admin: 12/03/17 17:06 Dose: 1 tab - Labs Labs: 12/04/17 06:21 12/04/17 06:21 PT 14.2 SECONDS (9.7-12.2) H 11/29/17 14:41 INR 1.3 11/29/17 14:41 APTT 19 SECONDS (21-34) L 11/29/17 14:41 - Constitutional Appears: Well - Head Exam Head Exam: ATRAUMATIC, NORMAL INSPECTION, NORMOCEPHALIC - Eye Exam Eye Exam: EOMI, Normal appearance, PERRL Pupil Exam: NORMAL ACCOMODATION, PERRL - ENT Exam ENT Exam: Mucous Membranes Moist, Normal Exam - Neck Exam Neck Exam: Full ROM, Normal Inspection. 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
--- NOTE | 2017-12-04 18:11 | PCM.SURG1 ---
Surgeon's Initial Post Op Note - Surgeon's Notes Surgeon: Dr. New Residence Leasing Agent: Dr. Iniguez, PGY-3 Type of Anesthesia: General Endo Pre-Operative Diagnosis: Necrotic wound Left chest wall Operative Findings: See operative report Post-Operative Diagnosis: Same Operation Performed: Debridement of chest wall wound & wound vac placement Specimen/Specimens Removed: necrotic tissue Estimated Blood Loss: EBL {In ML}: 5 Blood Products Given: N/A Drains Used: Wound Vac Post-Op Condition: Good Date of Surgery/Procedure: 12/04/17 Time of Surgery/Procedure: 18:10
--- NOTE | 2017-12-04 20:30 | PN ---
DATE: 12/04/2017 SUBJECTIVE: The patient is anxious as she is prepared to go to the operating room for incision and drainage of the abdominal wall abscess of her left flank. No retrosternal chest pain. PHYSICAL EXAMINATION: VITAL SIGNS: Blood pressure 131/76, heart rate 91, respirations 24, temperature 98.5. HEENT: Normocephalic. CHEST: Diminished breath sounds over the left base. HEART: S1 and S2, regular. EXTREMITIES: No pitting edema. LABORATORY DATA: Today SMA-7 is within normal limits, except for carbon dioxide of 31 and BUN of 7. Hemoglobin and hematocrit 10.1 and 31.0. White count and platelet count are within normal limits. ASSESSMENT: 1. Left flank abdominal wall abscess. 2. Morbid obesity. 3. Sleep apnea. 4. Left pleural effusion, status post chest tube placement. 5. Hypertension. RECOMMENDATIONS: Continue current management including IV vancomycin and IV Zosyn with postoperative ICU monitoring. Lazaro Omalley MD
[2017-12-04 22:10] LABS: AMYLASE PLEURAL FLUID <10 U/L
--- NOTE | 2017-12-04 23:18 | CP.PCM.PN ---
Subjective - Date & Time of Evaluation Date of Evaluation: 12/04/17 Time of Evaluation: 23:18 - Subjective Subjective: PATIENT AWAITING OR FOR DEBRIDEMENT AND WOUND VAC PLACEMENT OF LEFT CHEST WALL TODAY IN THE OR 12/04/17 # POD 3 AFEBRILE COMFORTABLE ON BED, HEAD RAISED. CT -CHEST DRAINING SEROUS SANGUINOUS . LEFT FLANK ABSCESS WITH WOUND VAC IN PLACE DRAINING. LABS REVIEWED; ALL CULTURES FROM LEFT CHEST WALL AND ABDOMINAL WALL -VE TO DATE . CONTINUE iv ANTIBIOTICS. Objective - Vital Signs/Intake and Output Vital Signs (last 24 hours): Temp Pulse Resp BP Pulse Ox 98.5 F 103 H 20 120/71 99 12/04/17 16:00 12/04/17 21:00 12/04/17 21:00 12/04/17 20:37 12/04/17 21:00 Intake and Output: 12/04/17 12/05/17 18:59 06:59 Intake Total 150 Output Total 1115 Balance -965 - Medications Medications: Current Medications Acetaminophen (Tylenol 325mg Tab) 650 mg PO Q6 PRN PRN Reason: Fever >100.4 F Last Admin: 12/01/17 07:39 Dose: 650 mg Albuterol/Ipratropium (Duoneb 3 Mg/0.5 Mg (3 Ml) Ud) 3 ml INH RQ6 PRN PRN Reason: Shortness of Breath Last Admin: 12/04/17 13:24 Dose: 3 ml Aspirin (Ecotrin) 81 mg PO DAILY [facility] Last Admin: 12/04/17 10:00 Dose: Not Given Enoxaparin Sodium (Lovenox) 40 mg SC DAILY [facility] Last Admin: 12/04/17 18:20 Dose: 40 mg Guaifenesin/Dextromethorphan (Robitussin Dm) 15 ml PO Q6H [facility] Last Admin: 12/04/17 18:33 Dose: 15 ml Vancomycin HCl 1,250 mg/ (Sodium Chloride) 250 mls @ 166.6 mls/hr IVPB Q12H [facility] Last Admin: 12/04/17 15:21 Dose: 166.6 mls/hr Piperacillin Sod/Tazobactam Sod (Zosyn 3.375 Gm Iv Premix) 3.375 gm in 50 mls @ 100 mls/hr IVPB Q8H [facility] PRN Reason: Protocol Last Admin: 12/04/17 17:15 Dose: 50 mls Metronidazole (Flagyl) 500 mg in 100 mls @ 100 mls/hr IVPB Q8 [facility] PRN Reason: Protocol Last Admin: 12/04/17 22:09 Dose: 100 mls/hr Losartan Potassium (Cozaar) 50 mg PO DAILY [facility] Last Admin: 12/04/17 10:00 Dose: Not Given Metoprolol Tartrate (Lopressor) 25 mg PO BID [facility] Last Admin: 12/04/17 18:20 Dose: 25 mg Morphine Sulfate (Morphine) 2 mg IVP Q4H PRN PRN Reason: Pain, moderate (4-7) Last Admin: 12/04/17 22:06 Dose: 2 mg Fluticasone/Salmeterol (Advair Diskus 250/50) 1 puff INH RQ12 [facility] Last Admin: 12/04/17 20:09 Dose: 1 puff Senna/Docusate Sodium (Senokot S 50 Mg-8.6 Mg) 1 tab PO BID [facility] Last Admin: 12/04/17 18:20 Dose: 1 tab - Labs Labs: 12/04/17 06:21 12/04/17 06:21 PT 14.2 SECONDS (9.7-12.2) H 11/29/17 14:41 INR 1.3 11/29/17 14:41 APTT 19 SECONDS (21-34) L 11/29/17 14:41 - Constitutional Appears: No Acute Distress - Head Exam Head Exam: NORMAL INSPECTION - Eye Exam Eye Exam: EOMI, PERRL - ENT Exam ENT Exam: Normal Oropharynx - Respiratory Exam Respiratory Exam: Decreased Breath Sounds (LEFT CHEST), Rhonchi (FEW RHONCHI) - GI/Abdominal Exam GI & Abdominal Exam: Soft, Normal Bowel Sounds, Pulsatile Mass - Extremities Exam Extremities Exam: Pedal Edema (2+). absent: Calf Tenderness - Neurological Exam Neurological Exam: Awake, CN II-XII Intact, Oriented x3 - Psychiatric Exam Psychiatric exam: Normal Mood - Skin Skin Exam: Normal Color, Warm Assessment and Plan (1) Pneumonia Assessment & Plan: PATIENT FOR OR FOR DEBRIDEMENT OF THE LEFT CHEST WALL COLLECTION AND WOUND vac PLACEMENT TODAY. 12/04/17. CONTINUE iv ANTIBIOTICS. ALL CULTURES NEGATIVE TO DATE. Status: Acute (2) Left upper quadrant abdominal swelling Assessment & Plan: CONTINUE IV ZOSYN 3.375 EVERY 8 HOURLY 11/15/17 CONTINUE IV VANCOMYCIN 1250 MG iv EVERY 12 HOURLY FOR mrsa STREP COVERAGE . ON IV FLAGYL 500MG IV Q8HRLY FOR ANAEROBIC COVERAGE. 12/01/[address] MARTINEZ. F/U CULTURES AND SPECIAL STAINS-P PER SURGERY. Status: Acute (3) Bronchitis Status: Acute (4) Morbid obesity Status: Acute
[2017-12-05] MEDS: guaiFENesin DM 100 mg-10 mg/5 ml UD PO SCH ×6 (00:12→23:41)
[2017-12-05] MEDS: Piperacill/Tazo 3.375gm in Dex 3.375 GM/50 ML BAG IVPB SCH ×2 (00:45→09:39)
--- NOTE | 2017-12-05 04:41 | OP ---
PROCEDURE DATE: 12/04/2017 PREOPERATIVE DIAGNOSIS: Left flank wound, status post excision of the left flank abdominal wall and drainage of collection and debridement of the cavity. POSTOPERATIVE DIAGNOSIS: Left flank wound, status post excision of the left flank abdominal wall and drainage of collection and debridement of the cavity. PROCEDURE DONE: 1. Excisional debridement of the left flank and chest area cavity. 2. Negative Pressure wound vac therapy [id number] SURGEON: The procedure was done by Dr. Virgen seo. SOFTWARE PRODUCT MANAGER: Dolly Iniguez, PGY-2 resident. TYPE OF ANESTHESIA: Local anesthesia plus sedation. ESTIMATED BLOOD LOSS: Around 5 mL. DRAIN: The wound VAC was placed as drain. PATHOLOGY: The debrided tissue was sent for the Pathology. COMPLICATIONS: None. INTRAOPERATIVE FINDINGS: The patient had a red granulation tissue on previously debrided area, and inside the deep cavity, the patient had necrotic material of the abdominal wall as well as the chest wall area and the necrotic material was debrided. DESCRIPTION OF PROCEDURE: On intraoperative steps, this is a 42-year-old male who was operated three days ago with excision of the abdominal wall of left flank due to infected skin, subcutaneous tissue as well as underlying infected collection and debridement of the collection cavity with the wound VAC placement, and the patient was brought in back today for change of wound VAC as well as redebridement of the wound, and the patient was brought to the OR, placed supine on the patient bed. After induction of the anesthesia, the left flank and chest area wound was prepped and draped. The old sponge was removed and the cavity was irrigated. There was a necrotic tissue in the deep part of the cavity that was debrided and the wound was irrigated. Hemostasis was achieved. The patient had a red granulation tissue at the previously debrided area with good blood supply, and after irrigation of the wound and after proper hemostasis, the wound VAC was placed and it was placed to the suction, and after connecting to the canister, there was no leak identified and the patient was sent to the ICU for further care. Andres New MD LARRY
[2017-12-05] MEDS: metroNIDAZOLE IV 500 mg/100 ml 500 MG/100 ML BAG IVPB SCH ×3 (05:55→21:02)
[2017-12-05] MEDS: Albuterol-Ipratrop 3 mg / 0.5 (3 ml) UD INH PRN ×2 (07:30→13:13)
[2017-12-05] MEDS: Fluticasone-Salmeterol 250-50mcg Diskus INH SCH ×2 (07:30→19:27)
[2017-12-05 07:45] LABS: BASO # 0.1 K/uL (0.0-0.2); BASO % 1.3 % (0.0-2.0); EOS # 0.3 K/uL (0.0-0.7); EOS % 2.6 % (0.0-4.0); HEMOGLOBIN 10.3 g/dL (12.0-18.0); LYMPH # 1.4 K/uL (1.0-4.3); LYMPH % 12.8 % (20.0-40.0); MEAN CELL VOLUME 81.2 fL (80.0-94.0); MEAN CORPUSCULAR HEMOGLOBIN 27.4 pg (27.0-31.0); MEAN CORPUSCULAR HGB CONC 33.8 g/dL (33.0-37.0); MEAN PLATELET VOLUME 7.2 fL (7.2-11.7); MONO # 0.8 K/uL (0.0-0.8); MONO % 7.9 % (0.0-10.0); NEUT % 75.4 % (50.0-75.0); NRBC % 0.1 % (0.0-2.0); RBC 3.76 Mil/uL (4.40-5.90); RED CELL DISTRIBUTION WIDTH 15.8 % (11.5-14.5); WHITE BLOOD COUNT 10.6 K/uL (4.8-10.8)
[2017-12-05 08:11] LABS: ALB/GLOB RATIO 0.9 (1.0-2.1); ALBUMIN 2.8 g/dL (3.5-5.0); ALT/SGPT 55 U/L (21-72); AST/SGOT 59 U/L (17-59); BLOOD UREA NITROGEN 8 mg/dL (9-20); CALCIUM 7.8 mg/dl (8.6-10.4); GFR AFRICAN-AMERICAN > 60; GFR NON-AFRICAN AMERICAN > 60
[2017-12-05] MEDS: Enoxaparin 40 mg Syringe SC SCH (09:38)
[2017-12-05] MEDS: Docusate-Senna 50 mg-8.6 mg Tab PO SCH ×2 (09:38→17:46)
--- NOTE | 2017-12-05 10:10 | RAD ---
HISTORY: sob COMPARISON: 12/05/2019 FINDINGS: LUNGS: Examination limited by poor inspiratory effort. No infiltrate. PLEURA: Minimal blunting of right costophrenic angle may reflect small pleural effusion or chronic pleural thickening. No change from prior. CARDIOVASCULAR: Right PICC catheter noted. OSSEOUS STRUCTURES: No significant abnormalities. VISUALIZED UPPER ABDOMEN: Normal. OTHER FINDINGS: None. IMPRESSION: No active disease.
[2017-12-05] MEDS ORDERED: POLYETHYLENE GLYCOL 3350 17 GM/Dose PACKET PO ONE (10:25)
--- NOTE | 2017-12-05 10:26 | CP.PCM.PN ---
<Yahir Ragland Julita - Last Filed: 12/05/17 10:26> Subjective - Date & Time of Evaluation Date of Evaluation: 12/05/17 Time of Evaluation: 10:25 - Subjective Subjective: Gen/Ct surg: Dr New/Dr Elizabeth Pt S&E in ICU. doing well. Has pain along left flank 2/2 chest tube and wound vac. Controlled with medication. Denies f/c, sob, n/v. Objective - Vital Signs/Intake and Output Vital Signs (last 24 hours): Temp Pulse Resp BP Pulse Ox 98.3 F 99 H 23 124/88 98 12/05/17 08:00 12/05/17 10:00 12/05/17 10:00 12/05/17 09:38 12/05/17 10:00 Intake and Output: 12/05/17 12/05/17 06:59 18:59 Intake Total 1460 550 Output Total 591 0 Balance 869 550 - Medications Medications: Current Medications Acetaminophen (Tylenol 325mg Tab) 650 mg PO Q6 PRN PRN Reason: Fever >100.4 F Last Admin: 12/01/17 07:39 Dose: 650 mg Albuterol/Ipratropium (Duoneb 3 Mg/0.5 Mg (3 Ml) Ud) 3 ml INH RQ6 PRN PRN Reason: Shortness of Breath Last Admin: 12/05/17 07:30 Dose: 3 ml Aspirin (Ecotrin) 81 mg PO DAILY [facility] Last Admin: 12/05/17 09:38 Dose: 81 mg Enoxaparin Sodium (Lovenox) 40 mg SC DAILY [facility] Last Admin: 12/05/17 09:38 Dose: 40 mg Guaifenesin/Dextromethorphan (Robitussin Dm) 15 ml PO Q6H ZANE Last Admin: 12/05/17 05:55 Dose: 15 ml Vancomycin HCl 1,250 mg/ (Sodium Chloride) 250 mls @ 166.6 mls/hr IVPB Q12H ZANE Last Admin: 12/05/17 02:21 Dose: 166.6 mls/hr Piperacillin Sod/Tazobactam Sod (Zosyn 3.375 Gm Iv Premix) 3.375 gm in 50 mls @ 100 mls/hr IVPB Q8H ZANE PRN Reason: Protocol Last Admin: 12/05/17 09:39 Dose: 100 mls/hr Metronidazole (Flagyl) 500 mg in 100 mls @ 100 mls/hr IVPB Q8 ZANE PRN Reason: Protocol Last Admin: 12/05/17 05:55 Dose: 100 mls/hr Losartan Potassium (Cozaar) 50 mg PO DAILY [facility] Last Admin: 12/05/17 09:38 Dose: 50 mg Metoprolol Tartrate (Lopressor) 25 mg PO BID [facility] Last Admin: 12/05/17 09:38 Dose: 25 mg Morphine Sulfate (Morphine) 2 mg IVP Q4H PRN PRN Reason: Pain, moderate (4-7) Last Admin: 12/05/17 07:53 Dose: 2 mg Fluticasone/Salmeterol (Advair Diskus 250/50) 1 puff INH RQ12 [facility] Last Admin: 12/05/17 07:30 Dose: 1 puff Senna/Docusate Sodium (Senokot S 50 Mg-8.6 Mg) 1 tab PO BID [facility] Last Admin: 12/05/17 09:38 Dose: 1 tab - Labs Labs: 12/05/17 07:39 12/05/17 07:39 PT 14.2 SECONDS (9.7-12.2) H 11/29/17 14:41 INR 1.3 11/29/17 14:41 APTT 19 SECONDS (21-34) L 11/29/17 14:41 - Constitutional Appears: Non-toxic, No Acute Distress - ENT Exam ENT Exam: Mucous Membranes Moist - Respiratory Exam Respiratory Exam: absent: Accessory Muscle Use, Respiratory Distress - Cardiovascular Exam Cardiovascular Exam: REGULAR RHYTHM. absent: Tachycardia - GI/Abdominal Exam GI & Abdominal Exam: Soft. absent: Distended, Tenderness - Neurological Exam Neurological Exam: Alert, Awake, Oriented x3 Assessment and Plan - Assessment and Plan (Free Text) Assessment: 42M with left flank abscess extending into the thoracic cavity; s/p left thoracostomy tube and left I&D w/ wound vac placement Plan: will cont wound vac changes Q3D cont CT to suction cont abx as per ID will follow d/w attendings WOLF [id number] <Andres New B - Last Filed: 12/06/17 21:35> Objective - Vital Signs/Intake and Output Vital Signs (last 24 hours): Temp Pulse Resp BP Pulse Ox 97.6 F 99 H 20 131/76 97 12/06/17 15:05 12/06/17 15:05 12/06/17 15:05 12/06/17 17:46 12/06/17 15:05 Intake and Output: 12/06/17 12/07/17 18:59 06:59 Intake Total 360 Output Total 431 Balance -71 - Medications Medications: Current Medications Acetaminophen (Tylenol 325mg Tab) 650 mg PO Q6 PRN PRN Reason: Fever >100.4 F Last Admin: 12/01/17 07:39 Dose: 650 mg Albuterol/Ipratropium (Duoneb 3 Mg/0.5 Mg (3 Ml) Ud) 3 ml INH RQ6 PRN PRN Reason: Shortness of Breath Last Admin: 12/06/17 07:45 Dose: 3 ml Aspirin (Ecotrin) 81 mg PO DAILY [facility] Last Admin: 12/06/17 10:08 Dose: 81 mg Enoxaparin Sodium (Lovenox) 40 mg SC DAILY [facility] Last Admin: 12/06/17 14:46 Dose: 40 mg Guaifenesin/Dextromethorphan (Robitussin Dm) 15 ml PO Q6H [facility] Last Admin: 12/06/17 17:47 Dose: 15 ml Vancomycin HCl 1,250 mg/ (Sodium Chloride) 250 mls @ 166.6 mls/hr IVPB Q12H [facility] Last Admin: 12/06/17 14:07 Dose: 166.6 mls/hr Metronidazole (Flagyl) 500 mg in 100 mls @ 100 mls/hr IVPB Q8 ZANE PRN Reason: Protocol Last Admin: 12/06/17 21:17 Dose: 100 mls/hr Losartan Potassium (Cozaar) 50 mg PO DAILY [facility] Last Admin: 12/06/17 10:07 Dose: 50 mg Metoprolol Tartrate (Lopressor) 25 mg PO BID [facility] Last Admin: 12/06/17 17:46 Dose: 25 mg Morphine Sulfate (Morphine) 2 mg IVP Q4H PRN PRN Reason: Pain, moderate (4-7) Last Admin: 12/06/17 19:10 Dose: 2 mg Fluticasone/Salmeterol (Advair Diskus 250/50) 1 puff INH RQ12 [facility] Last Admin: 12/06/17 19:17 Dose: 1 puff Senna/Docusate Sodium (Senokot S 50 Mg-8.6 Mg) 1 tab PO BID [facility] Last Admin: 12/06/17 17:46 Dose: 1 tab - Labs Labs: 12/06/17 06:24 12/06/17 06:24 PT 14.2 SECONDS (9.7-12.2) H 11/29/17 14:41 INR 1.3 11/29/17 14:41 APTT 19 SECONDS (21-34) L 11/29/17 14:41 Attending/Attestation - Attestation I have personally seen and examined this patient.: Yes I have fully participated in the care of the patient.: Yes I have reviewed all pertinent clinical information, including history, physical exam and plan: Yes Notes (Text): Pt was seen and examined at bedside Agree with above note and assessment Pt is improving clinically Transfer to regular floor wound vac change and debridement tomorrow C.w current mx IV antibiotics NPO, IVF Consent Plan d.w pt in detail Risk and benefit explained in detail.
--- NOTE | 2017-12-05 10:34 | CP.CCUPN ---
<Jessica Brown - Last Filed: 12/05/17 13:24> CCU Subjective - Physician Review Subjective (Free Text): 12/05/17 10:31 Patient seen and examined at bedside. Per nursing no acute events overnight. Patient is feeling better. Breathing improved. Went to OR yesterday for another debridement of Left flank wound. Wound vac and chest tube in place. Denies headaches, dizziness, cp, palpitations, sob, urinary symptoms. CCU Objective - Vital Signs / Intake & Output Vital Signs (Last 4 hours): Vital Signs Temp Pulse Resp BP Pulse Ox 12/05/17 10:00 99 H 23 98 12/05/17 09:38 124/88 12/05/17 09:37 101 H 26 H 124/88 12/05/17 09:00 102 H 23 100 12/05/17 08:39 100 H 16 104/50 L 100 12/05/17 08:00 98.3 F 99 H 22 95 12/05/17 07:38 93 H 26 H 112/62 12/05/17 07:00 92 H 23 99 12/05/17 06:49 94 H 20 117/57 L 98 Intake and Output (Last 8hrs): Intake & Output 12/04/17 12/05/17 12/05/17 22:59 06:59 14:59 Intake Total 1090 520 550 Output Total 1115 591 0 Balance -25 -71 550 Weight 223.167 kg Intake: IV 150 Intake, IV Amount 100 400 50 Right PICC 100 400 50 Oral 840 120 500 Output: Chest Tube Drainage 65 91 Left 65 91 Drainage 50 0 0 left flank 50 0 0 Urine 1000 500 Urine, Voided 1000 500 Other: # Voids Urine, Voided 0 0 # Bowel Movements 0 0 1 - Physical Exam Head: Positive for: Atraumatic, Normocephalic Pupils: Positive for: PERRL Extroacular Muscles: Positive for: EOMI Conjunctiva: Positive for: Normal Mouth: Positive for: Moist Mucous Membranes Neck: Positive for: Normal Range of Motion Respiratory/Chest: Positive for: Good Air Exchange, Other (Left sided chest tube in place draining serosanginous fluid, wound vac in place ). Negative for : Respiratory Distress, Accessory Muscle Use Cardiovascular: Positive for: Regular Rate and Rhythm, Normal S1, S2 Abdomen: Positive for: Distention (Obese abdomen ) Skin: Positive for: Warm, Dry, Normal Color Psychiatric: Positive for: Alert, Oriented x 3 - Medications Active Medications: Active Medications Generic Name Dose Route Start Last Admin Trade Name Freq PRN Reason Stop Dose Admin Acetaminophen 650 mg 11/30/17 12:34 12/01/17 07:39 Tylenol 325mg Tab PO 650 mg Q6 PRN Administration Fever >100.4 F Albuterol/Ipratropium 3 ml 12/04/17 07:55 12/05/17 07:30 Duoneb 3 Mg/0.5 Mg (3 Ml) Ud INH 3 ml RQ6 PRN Administration Shortness of Breath Aspirin 81 mg 11/24/17 10:00 12/05/17 09:38 Ecotrin PO 81 mg DAILY [facility]ANE Administration Enoxaparin Sodium 40 mg 11/30/17 10:45 12/05/17 09:38 Lovenox SC 40 mg DAILY [facility] Administration Guaifenesin/Dextromethorphan 15 ml 11/21/17 12:04 12/05/17 05:55 Robitussin Dm PO 15 ml Q6H ZANE Administration Vancomycin HCl 1,250 mg/ 250 mls @ 166.6 mls/hr 11/16/17 03:00 12/05/17 02:21 Sodium Chloride IVPB 166.6 mls/hr Q12H ZANE Administration Piperacillin Sod/Tazobactam Sod 3.375 gm in 50 mls @ 100 mls/hr 11/27/17 01: 45 12/05/17 09:39 Zosyn 3.375 Gm Iv Premix IVPB 100 mls/hr Q8H ZANE Administration Protocol Metronidazole 500 mg in 100 mls @ 100 mls/hr 12/01/17 14:00 12/05/17 05:55 Flagyl IVPB 100 mls/hr Q8 ZANE Administration Protocol Losartan Potassium 50 mg 11/15/17 10:00 12/05/17 09:38 Cozaar PO 50 mg DAILY [facility] Administration Metoprolol Tartrate 25 mg 11/27/17 10:15 12/05/17 09:38 Lopressor PO 25 mg BID [facility]ANE Administration Morphine Sulfate 2 mg 12/03/17 21:07 12/05/17 07:53 Morphine IVP 2 mg Q4H PRN Administration Pain, moderate (4-7) Polyethylene Glycol 17 gm 12/05/17 10:25 Miralax PO 03/20/18 10:26 ONCE ONE Fluticasone/Salmeterol 1 puff 11/15/17 08:00 12/05/17 07:30 Advair Diskus 250/50 INH 1 puff RQ12 [facility]ANE Administration Senna/Docusate Sodium 1 tab 11/23/17 18:00 12/05/17 09:38 Senokot S 50 Mg-8.6 Mg PO 1 tab BID ZANE Administration - Patient Studies Lab Studies: Microbiology Studies 11/24/17 14:40 Fungal Culture - Preliminary Pleural Fluid NO FUNGUS GROWTH IN 1 WEEK. 11/30/17 12:30 Blood Culture - Preliminary Blood NO GROWTH AFTER 4 DAYS 11/30/17 12:34 Blood Culture - Preliminary Blood NO GROWTH AFTER 4 DAYS 12/01/17 21:00 Gram Stain - Final Abdominal Fluid Anaerobic Culture - Final NO ANAEROBES ISOLATED. Body Fluid Culture - Preliminary NO GROWTH AFTER 3 DAYS 11/26/17 10:50 Mycobacterial Culture - Preliminary Other: Please Indicate Lab Studies 12/05/17 12/05/17 11/29/17 Range/Units 07:39 07:39 18:34 WBC 10.6 (4.8-10.8) K/uL RBC 3.76 L (4.40-5.90) Mil/uL Hgb 10.3 L (12.0-18.0) g/dL Hct 30.5 L (35.0-51.0) % MCV 81.2 (80.0-94.0) fL MCH 27.4 (27.0-31.0) pg MCHC 33.8 (33.0-37.0) g/dL RDW 15.8 H (11.5-14.5) % Plt Count 351 (130-400) K/uL MPV 7.2 (7.2-11.7) fL Neut % (Auto) 75.4 H (50.0-75.0) % Lymph % (Auto) 12.8 L (20.0-40.0) % [place] % (Auto) 7.9 (0.0-10.0) % Eos % (Auto) 2.6 (0.0-4.0) % Baso % (Auto) 1.3 (0.0-2.0) % Neut # (Auto) 8.0 H (1.8-7.0) K/uL Lymph # (Auto) 1.4 (1.0-4.3) K/uL [place] # (Auto) 0.8 (0.0-0.8) K/uL Eos # (Auto) 0.3 (0.0-0.7) K/uL Baso # (Auto) 0.1 (0.0-0.2) K/uL Sodium 137 (132-148) mmol/L Potassium 4.0 (3.6-5.2) mmol/L Chloride 99 (98-107) mmol/L Carbon Dioxide 29 (22-30) mmol/L Anion Gap 13 (10-20) BUN 8 L (9-20) mg/dL Creatinine 1.0 (0.8-1.5) mg/dL Est GFR ( Amer) > 60 Est GFR (Non-Af Amer) > 60 Random Glucose 107 (75-110) mg/dL Calcium 7.8 L (8.6-10.4) mg/dl Phosphorus 3.7 (2.5-4.5) mg/dL Magnesium 2.0 (1.6-2.3) mg/dL Total Bilirubin 0.3 (0.2-1.3) mg/dL AST 59 (17-59) U/L ALT 55 (21-72) U/L Alkaline Phosphatase 57 (38-126) U/L Total Protein 6.1 L (6.3-8.3) g/dL Albumin 2.8 L (3.5-5.0) g/dL Globulin 3.3 (2.2-3.9) gm/dL Albumin/Globulin Ratio 0.9 L (1.0-2.1) Pleural Amylase <10 U/L Laboratory Results - last 24 hr 11/29/17 12/05/17 12/05/17 18:34 07:39 07:39 WBC 10.6 RBC 3.76 L Hgb 10.3 L Hct 30.5 L MCV 81.2 MCH 27.4 MCHC 33.8 RDW 15.8 H Plt Count 351 MPV 7.2 Neut % (Auto) 75.4 H Lymph % (Auto) 12.8 L [place] % (Auto) 7.9 Eos % (Auto) 2.6 Baso % (Auto) 1.3 Neut # (Auto) 8.0 H Lymph # (Auto) 1.4 [place] # (Auto) 0.8 Eos # (Auto) 0.3 Baso # (Auto) 0.1 Sodium 137 Potassium 4.0 Chloride 99 Carbon Dioxide 29 Anion Gap 13 BUN 8 L Creatinine 1.0 Est GFR ( Amer) > 60 Est GFR (Non-Af Amer) > 60 Random Glucose 107 Calcium 7.8 L Phosphorus 3.7 Magnesium 2.0 Total Bilirubin 0.3 AST 59 ALT 55 Alkaline Phosphatase 57 Total Protein 6.1 L Albumin 2.8 L Globulin 3.3 Albumin/Globulin Ratio 0.9 L Pleural Amylase <10 Fingerstick Blood Sugar Results: 97 Critical Care Progress Note - Nutrition Nutrition: Nutrition Category Date Time Status Heart Healthy Diet [DIET] Diets 12/04/17 Dinner Active Assessment/Plan - Assessment and Plan (Free Text) Assessment: Patient is a 42 year old male with past medical history of morbid obesity presented with large left pleural effusion s/p drainage with chest tube. Surgical I&D (12/01/17) of abdominal wall abscess. Neurology: -Patient is AAOx3 -Stable, afebrile -Pain control with morphine prn Cardiology: -Patient with a history of HTN -Will continue Cozaar 50mg po daily -Metoprolol 25mg PO BID -Continue Aspirin 81mg PO daily Respiratory: -Sputum for AFB negative x 3, isolation was discontinued -Patient with left sided chest tube for left pleural effusion, to suction -Encourage ISS use -CXR 12/05: Minimal blunting of the right costophrenic angle may reflect small pleural effusion or chronic pleural thickening. No active disease -CT chest with contrast: Status post chest tube placement left pleural space. Near complete resolution of left pleural effusion. Substantial re-expansion of the left lung. Residual consolidative changes in the left lower lobe and left upper lobe. -Robitussin 15ml Q6H for cough -Morphine 4mg Q4H prn pain -Duonebs Q6H ZANE, Continue Advair 1 puff Q12H -CT surgeon Dr Elizabeth consulted, help appreciated Hematology -Hgb stable, s/p 3 units of PRBCs -Approximately 5L of bloody pleural fluid drained in the OR -F/U serial CBCs GI: -Miralax 17gm PO x 1 ordered -Continue senna/docusate -Monitor bowel function Endocrine: -Patient with history of Impaired Glucose Tolerance, Hgba1c 6.0 -Continue Metformin 500mg QHS, accuchecks Infectious Disease: -Patient was with possible anaerobic infection from left lateral abdomen/chest wall that was seen on CT -s/p debridement of left abdominal wall abscess, wound vac in place, draining well -Fluid cultures have shown no growth currently, f/u actinomyces and nocardia -Patient was also being treated for Pneumonia, Legionella and mycoplasma negative -Leukocytosis resolved -Antibiotics: Zosyn 3.375mg IV Q8H, Vancomycin 1250mg Q12H ,Flagyl 500mg Q8H -Infectious Disease on consult, Dr Rome, help appreciated -General surgery on consult, Dr New, help appreciated GI/DVT ppx: -GI ppx not indicated at this time -SCDs, Lovenox 40mg SC daily <Robert Fischer - Last Filed: 12/05/17 17:46> CCU Objective - Vital Signs / Intake & Output Vital Signs (Last 4 hours): Vital Signs Temp Pulse Resp BP Pulse Ox 12/05/17 17:01 99 H 12/05/17 16:37 102 H 19 158/96 H 12/05/17 16:00 98.7 F 90 18 99 12/05/17 15:37 95 H 19 142/88 100 12/05/17 15:00 92 H 20 99 12/05/17 14:37 98 H 25 H 152/87 H 93 L 12/05/17 14:00 97 H 22 96 Intake and Output (Last 8hrs): Intake & Output 12/05/17 12/05/17 12/05/17 06:59 14:59 22:59 Intake Total 520 1050 450 Output Total 591 500 500 Balance -71 550 -50 Weight 492 lb Intake: Intake, IV Amount 400 50 350 Right PICC 400 50 350 Oral 120 1000 100 Output: Chest Tube Drainage 91 Left 91 Drainage 0 0 left flank 0 0 Urine 500 500 500 Urine, Voided 500 500 500 Other: # Voids Urine, Voided 0 # Bowel Movements 0 1 - Medications Active Medications: Active Medications Generic Name Dose Route Start Last Admin Trade Name Freq PRN Reason Stop Dose Admin Acetaminophen 650 mg 11/30/17 12:34 12/01/17 07:39 Tylenol 325mg Tab PO 650 mg Q6 PRN Administration Fever >100.4 F Albuterol/Ipratropium 3 ml 12/04/17 07:55 12/05/17 13:13 Duoneb 3 Mg/0.5 Mg (3 Ml) Ud INH 3 ml RQ6 PRN Administration Shortness of Breath Aspirin 81 mg 11/24/17 10:00 12/05/17 09:38 Ecotrin PO 81 mg DAILY ZANE Administration Enoxaparin Sodium 40 mg 11/30/17 10:45 12/05/17 09:38 Lovenox SC 40 mg DAILY [facility]ANE Administration Guaifenesin/Dextromethorphan 15 ml 11/21/17 12:04 12/05/17 14:29 Robitussin Dm PO 15 ml Q6H ZANE Administration Vancomycin HCl 1,250 mg/ 250 mls @ 166.6 mls/hr 11/16/17 03:00 12/05/17 14:28 Sodium Chloride IVPB 166.6 mls/hr Q12H ZANE Administration Metronidazole 500 mg in 100 mls @ 100 mls/hr 12/01/17 14:00 12/05/17 13:33 Flagyl IVPB 100 mls/hr Q8 ZANE Administration Protocol Losartan Potassium 50 mg 11/15/17 10:00 12/05/17 09:38 Cozaar PO 50 mg DAILY [facility]ANE Administration Metoprolol Tartrate 25 mg 11/27/17 10:15 12/05/17 09:38 Lopressor PO 25 mg BID ZANE Administration Morphine Sulfate 2 mg 12/03/17 21:07 12/05/17 14:28 Morphine IVP 2 mg Q4H PRN Administration Pain, moderate (4-7) Fluticasone/Salmeterol 1 puff 11/15/17 08:00 12/05/17 07:30 Advair Diskus 250/50 INH 1 puff RQ12 ZANE Administration Senna/Docusate Sodium 1 tab 11/23/17 18:00 12/05/17 09:38 Senokot S 50 Mg-8.6 Mg PO 1 tab BID ZANE Administration - Patient Studies Lab Studies: Microbiology Studies 11/30/17 12:30 Blood Culture - Final Blood NO GROWTH AFTER 5 DAYS Gram Stain - Final TEST NOT PERFORMED 11/30/17 12:34 Blood Culture - Final Blood NO GROWTH AFTER 5 DAYS Gram Stain - Final TEST NOT PERFORMED 12/01/17 21:00 Gram Stain - Final Abdominal Fluid Anaerobic Culture - Final NO ANAEROBES ISOLATED. Body Fluid Culture - Final No growth. 11/24/17 14:40 Fungal Culture - Preliminary Pleural Fluid NO FUNGUS GROWTH IN 1 WEEK. Lab Studies 12/05/17 12/05/17 11/29/17 Range/Units 07:39 07:39 18:34 WBC 10.6 (4.8-10.8) K/uL RBC 3.76 L (4.40-5.90) Mil/uL Hgb 10.3 L (12.0-18.0) g/dL Hct 30.5 L (35.0-51.0) % MCV 81.2 (80.0-94.0) fL MCH 27.4 (27.0-31.0) pg MCHC 33.8 (33.0-37.0) g/dL RDW 15.8 H (11.5-14.5) % Plt Count 351 (130-400) K/uL MPV 7.2 (7.2-11.7) fL Neut % (Auto) 75.4 H (50.0-75.0) % Lymph % (Auto) 12.8 L (20.0-40.0) % [place] % (Auto) 7.9 (0.0-10.0) % Eos % (Auto) 2.6 (0.0-4.0) % Baso % (Auto) 1.3 (0.0-2.0) % Neut # (Auto) 8.0 H (1.8-7.0) K/uL Lymph # (Auto) 1.4 (1.0-4.3) K/uL [place] # (Auto) 0.8 (0.0-0.8) K/uL Eos # (Auto) 0.3 (0.0-0.7) K/uL Baso # (Auto) 0.1 (0.0-0.2) K/uL Sodium 137 (132-148) mmol/L Potassium 4.0 (3.6-5.2) mmol/L Chloride 99 (98-107) mmol/L Carbon Dioxide 29 (22-30) mmol/L Anion Gap 13 (10-20) BUN 8 L (9-20) mg/dL Creatinine 1.0 (0.8-1.5) mg/dL Est GFR ( Amer) > 60 Est GFR (Non-Af Amer) > 60 Random Glucose 107 (75-110) mg/dL Calcium 7.8 L (8.6-10.4) mg/dl Phosphorus 3.7 (2.5-4.5) mg/dL Magnesium 2.0 (1.6-2.3) mg/dL Total Bilirubin 0.3 (0.2-1.3) mg/dL AST 59 (17-59) U/L ALT 55 (21-72) U/L Alkaline Phosphatase 57 (38-126) U/L Total Protein 6.1 L (6.3-8.3) g/dL Albumin 2.8 L (3.5-5.0) g/dL Globulin 3.3 (2.2-3.9) gm/dL Albumin/Globulin Ratio 0.9 L (1.0-2.1) Pleural Amylase <10 U/L Laboratory Results - last 24 hr 11/29/17 12/05/17 12/05/17 18:34 07:39 07:39 WBC 10.6 RBC 3.76 L Hgb 10.3 L Hct 30.5 L MCV 81.2 MCH 27.4 MCHC 33.8 RDW 15.8 H Plt Count 351 MPV 7.2 Neut % (Auto) 75.4 H Lymph % (Auto) 12.8 L [place] % (Auto) 7.9 Eos % (Auto) 2.6 Baso % (Auto) 1.3 Neut # (Auto) 8.0 H Lymph # (Auto) 1.4 [place] # (Auto) 0.8 Eos # (Auto) 0.3 Baso # (Auto) 0.1 Sodium 137 Potassium 4.0 Chloride 99 Carbon Dioxide 29 Anion Gap 13 BUN 8 L Creatinine 1.0 Est GFR ( Amer) > 60 Est GFR (Non-Af Amer) > 60 Random Glucose 107 Calcium 7.8 L Phosphorus 3.7 Magnesium 2.0 Total Bilirubin 0.3 AST 59 ALT 55 Alkaline Phosphatase 57 Total Protein 6.1 L Albumin 2.8 L Globulin 3.3 Albumin/Globulin Ratio 0.9 L Pleural Amylase <10 Critical Care Progress Note - Nutrition Nutrition: Nutrition Category Date Time Status Heart Healthy Diet [DIET] Diets 12/04/17 Dinner Active Attending/Attestation - Attestation I have personally seen and examined this patient.: Yes I have fully participated in the care of the patient.: Yes I have reviewed all pertinent clinical information: Yes Notes (Text): 12/05/17 17:44 patient seen and examined in the intensive care unit. Case discussed with house staff in the morning. Continue IV antibiotics Status post left I& D with wound vac placement Left chest tubes in place on suction
--- NOTE | 2017-12-05 16:02 | CP.PCM.PN ---
Subjective - Date & Time of Evaluation Date of Evaluation: 12/05/17 Time of Evaluation: 13:00 - Subjective Subjective: clinically same Objective - Vital Signs/Intake and Output Vital Signs (last 24 hours): Temp Pulse Resp BP Pulse Ox 97.7 F 97 H 22 138/77 96 12/05/17 12:00 12/05/17 14:00 12/05/17 14:00 12/05/17 13:37 12/05/17 14:00 Intake and Output: 12/05/17 12/05/17 06:59 18:59 Intake Total 1460 1050 Output Total 591 500 Balance 869 550 - Medications Medications: Current Medications Acetaminophen (Tylenol 325mg Tab) 650 mg PO Q6 PRN PRN Reason: Fever >100.4 F Last Admin: 12/01/17 07:39 Dose: 650 mg Albuterol/Ipratropium (Duoneb 3 Mg/0.5 Mg (3 Ml) Ud) 3 ml INH RQ6 PRN PRN Reason: Shortness of Breath Last Admin: 12/05/17 13:13 Dose: 3 ml Aspirin (Ecotrin) 81 mg PO DAILY [facility] Last Admin: 12/05/17 09:38 Dose: 81 mg Enoxaparin Sodium (Lovenox) 40 mg SC DAILY [facility] Last Admin: 12/05/17 09:38 Dose: 40 mg Guaifenesin/Dextromethorphan (Robitussin Dm) 15 ml PO Q6H [facility] Last Admin: 12/05/17 14:29 Dose: 15 ml Vancomycin HCl 1,250 mg/ (Sodium Chloride) 250 mls @ 166.6 mls/hr IVPB Q12H [facility] Last Admin: 12/05/17 14:28 Dose: 166.6 mls/hr Metronidazole (Flagyl) 500 mg in 100 mls @ 100 mls/hr IVPB Q8 [facility] PRN Reason: Protocol Last Admin: 12/05/17 13:33 Dose: 100 mls/hr Losartan Potassium (Cozaar) 50 mg PO DAILY [facility] Last Admin: 12/05/17 09:38 Dose: 50 mg Metoprolol Tartrate (Lopressor) 25 mg PO BID [facility] Last Admin: 12/05/17 09:38 Dose: 25 mg Morphine Sulfate (Morphine) 2 mg IVP Q4H PRN PRN Reason: Pain, moderate (4-7) Last Admin: 12/05/17 14:28 Dose: 2 mg Fluticasone/Salmeterol (Advair Diskus 250/50) 1 puff INH RQ12 [facility] Last Admin: 12/05/17 07:30 Dose: 1 puff Senna/Docusate Sodium (Senokot S 50 Mg-8.6 Mg) 1 tab PO BID [facility] Last Admin: 12/05/17 09:38 Dose: 1 tab - Labs Labs: 12/05/17 07:39 12/05/17 07:39 PT 14.2 SECONDS (9.7-12.2) H 11/29/17 14:41 INR 1.3 11/29/17 14:41 APTT 19 SECONDS (21-34) L 11/29/17 14:41 - Constitutional Appears: Well - Head Exam Head Exam: ATRAUMATIC, NORMAL INSPECTION, NORMOCEPHALIC - Eye Exam Eye Exam: EOMI, Normal appearance, PERRL Pupil Exam: NORMAL ACCOMODATION, PERRL - ENT Exam ENT Exam: Mucous Membranes Moist, Normal Exam - Neck Exam Neck Exam: Full ROM, Normal Inspection. absent: Lymphadenopathy - Respiratory Exam Respiratory Exam: Decreased Breath Sounds - Cardiovascular Exam Cardiovascular Exam: REGULAR RHYTHM, +S1, +S2 - GI/Abdominal Exam GI & Abdominal Exam: Soft, Diminished Bowel Sounds - Rectal Exam Rectal Exam: Deferred Assessment and Plan - Assessment and Plan (Free Text) Plan: Continue Advair Continue Flagyl Continue Protonix and Lovenox Continue vancomycin Continue following with the pulmonary Follow-up with ID Continue the same
--- NOTE | 2017-12-05 22:59 | CP.PCM.PN ---
Subjective - Date & Time of Evaluation Date of Evaluation: 12/05/17 Time of Evaluation: 22:58 - Subjective Subjective: AFEBRILE S/P OR 12/04/17- COMFORTABLE .STATES PAIN BEING WELL CONTROLLED CT -CHEST DRAINING SEROUS SANGUINOUS . LEFT FLANK ABSCESS WITH WOUND VAC IN PLACE DRAINING. LABS REVIEWED; ALL CULTURES FROM LEFT CHEST WALL AND ABDOMINAL WALL -VE TO DATE . CONTINUE iv ANTIBIOTICS. Objective - Vital Signs/Intake and Output Vital Signs (last 24 hours): Temp Pulse Resp BP Pulse Ox 98.7 F 91 H 21 125/75 97 12/05/17 19:59 12/05/17 22:00 12/05/17 22:00 12/05/17 21:38 12/05/17 22:00 Intake and Output: 12/05/17 12/06/17 18:59 06:59 Intake Total 1700 200 Output Total 1074 400 Balance 626 -200 - Medications Medications: Current Medications Acetaminophen (Tylenol 325mg Tab) 650 mg PO Q6 PRN PRN Reason: Fever >100.4 F Last Admin: 12/01/17 07:39 Dose: 650 mg Albuterol/Ipratropium (Duoneb 3 Mg/0.5 Mg (3 Ml) Ud) 3 ml INH RQ6 PRN PRN Reason: Shortness of Breath Last Admin: 12/05/17 13:13 Dose: 3 ml Aspirin (Ecotrin) 81 mg PO DAILY [facility] Last Admin: 12/05/17 09:38 Dose: 81 mg Enoxaparin Sodium (Lovenox) 40 mg SC DAILY [facility] Last Admin: 12/05/17 09:38 Dose: 40 mg Guaifenesin/Dextromethorphan (Robitussin Dm) 15 ml PO Q6H [facility] Last Admin: 12/05/17 17:46 Dose: 15 ml Vancomycin HCl 1,250 mg/ (Sodium Chloride) 250 mls @ 166.6 mls/hr IVPB Q12H [facility] Last Admin: 12/05/17 14:28 Dose: 166.6 mls/hr Metronidazole (Flagyl) 500 mg in 100 mls @ 100 mls/hr IVPB Q8 [facility] PRN Reason: Protocol Last Admin: 12/05/17 21:02 Dose: 100 mls/hr Losartan Potassium (Cozaar) 50 mg PO DAILY [facility] Last Admin: 12/05/17 09:38 Dose: 50 mg Metoprolol Tartrate (Lopressor) 25 mg PO BID [facility] Last Admin: 12/05/17 17:46 Dose: 25 mg Morphine Sulfate (Morphine) 2 mg IVP Q4H PRN PRN Reason: Pain, moderate (4-7) Last Admin: 12/05/17 14:28 Dose: 2 mg Fluticasone/Salmeterol (Advair Diskus 250/50) 1 puff INH RQ12 [facility] Last Admin: 12/05/17 19:27 Dose: 1 puff Senna/Docusate Sodium (Senokot S 50 Mg-8.6 Mg) 1 tab PO BID [facility] Last Admin: 12/05/17 17:46 Dose: 1 tab - Labs Labs: 12/05/17 07:39 12/05/17 07:39 PT 14.2 SECONDS (9.7-12.2) H 11/29/17 14:41 INR 1.3 11/29/17 14:41 APTT 19 SECONDS (21-34) L 11/29/17 14:41 - Constitutional Appears: No Acute Distress - Head Exam Head Exam: NORMAL INSPECTION - Eye Exam Eye Exam: EOMI, PERRL - ENT Exam ENT Exam: Normal Oropharynx - Neck Exam Neck Exam: Normal Inspection - Respiratory Exam Respiratory Exam: Decreased Breath Sounds (LEFT LUNG WITH LEFT CHEST TUBE IN PLACE.) - Cardiovascular Exam Cardiovascular Exam: REGULAR RHYTHM, +S1, +S2 - GI/Abdominal Exam GI & Abdominal Exam: Soft, Tenderness, Normal Bowel Sounds (LEFT-ABDOMINAL WOUND COLLECTION CONNECTED TO WOUND VAC.) - Extremities Exam Extremities Exam: Pedal Edema. absent: Calf Tenderness - Neurological Exam Neurological Exam: Awake, CN II-XII Intact, Oriented x3 - Psychiatric Exam Psychiatric exam: Normal Mood - Skin Skin Exam: Normal Color, Warm Assessment and Plan (1) Pneumonia Assessment & Plan: PATIENT ON iv ANTIBIOTICS. lEFT CHEST TUBE WOUND CARE PER SURGERY/CT SURGEON. Status: Acute (2) Left upper quadrant abdominal swelling Assessment & Plan: CONTINUE IV ZOSYN 3.375 EVERY 8 HOURLY 11/15/17 CONTINUE IV VANCOMYCIN 1250 MG iv EVERY 12 HOURLY FOR mrsa [employer]P COVERAGE . ON IV FLAGYL 500MG IV Q8HRLY FOR ANAEROBIC COVERAGE. 12/01/[address] MARTINEZ. F/U CULTURES AND SPECIAL STAINS-P PER SURGERY WOUND VAC IN PLACE. Status: Acute (3) Bronchitis Status: Acute (4) Morbid obesity Status: Acute
--- NOTE | 2017-12-05 23:21 | PN ---
DATE: 12/05/2017 SUBJECTIVE: The patient underwent abdominal wound VAC change and wound debridement. He denies any chest pain. No reported ventricular arrhythmia. PHYSICAL EXAMINATION: VITAL SIGNS: Blood pressure 158/95, heart rate 99, temperature 97.8, respirations 19. HEENT: Normocephalic. CHEST: Diminished breath sounds over the bases. HEART: S1 and S2, regular and distant. ABDOMEN: Soft. EXTREMITIES: 2+ pitting edema. LABORATORY DATA: Today's SMA-7 is within normal limits except for BUN of 8. Calcium is within normal at 7.8. Hemoglobin and hematocrit are 10.3 and 30.5, white count and platelet counts are within normal limits. ASSESSMENT: 1. Status post thoracocentesis and chest tube placement with removal of 5 L of serosanguineous left pleural effusion. 2. Status post excision and drainage followed by debridement of left flank abdominal wall infection. 3. Sleep apnea. 4. Morbid obesity. RECOMMENDATIONS: Continue current IV vancomycin at 1250 mg q.12 hours. Continue IV Flagyl 500 mg intravenously q.8 hours. Continue aspirin, subcutaneous Lovenox, and Robitussin DM. Lazaro Omalley MD
[2017-12-06] MEDS: guaiFENesin DM 100 mg-10 mg/5 ml UD PO SCH ×4 (05:19→23:32)
[2017-12-06] MEDS: metroNIDAZOLE IV 500 mg/100 ml 500 MG/100 ML BAG IVPB SCH ×3 (05:20→21:17)
[2017-12-06 06:35] LABS: BASO # 0.1 K/uL (0.0-0.2); BASO % 1.1 % (0.0-2.0); EOS # 0.4 K/uL (0.0-0.7); EOS % 3.8 % (0.0-4.0); HEMOGLOBIN 9.9 g/dL (12.0-18.0); LYMPH # 1.7 K/uL (1.0-4.3); LYMPH % 16.2 % (20.0-40.0); MEAN CELL VOLUME 81.6 fL (80.0-94.0); MEAN CORPUSCULAR HEMOGLOBIN 26.6 pg (27.0-31.0); MEAN CORPUSCULAR HGB CONC 32.6 g/dL (33.0-37.0); MEAN PLATELET VOLUME 7.3 fL (7.2-11.7); MONO # 0.9 K/uL (0.0-0.8); MONO % 8.4 % (0.0-10.0); NEUT # 7.4 K/uL (1.8-7.0); NEUT % 70.5 % (50.0-75.0); RBC 3.73 Mil/uL (4.40-5.90); RED CELL DISTRIBUTION WIDTH 16.2 % (11.5-14.5); WHITE BLOOD COUNT 10.5 K/uL (4.8-10.8)
[2017-12-06 06:57] LABS: ALT/SGPT 57 U/L (21-72); AST/SGOT 61 U/L (17-59); BLOOD UREA NITROGEN 7 mg/dL (9-20); CALCIUM 8.1 mg/dl (8.6-10.4); GFR AFRICAN-AMERICAN > 60; GFR NON-AFRICAN AMERICAN > 60
[2017-12-06 07:03] LABS: ALB/GLOB RATIO 0.8 (1.0-2.1); ALBUMIN 2.8 g/dL (3.5-5.0)
[2017-12-06] MEDS: Albuterol-Ipratrop 3 mg / 0.5 (3 ml) UD INH PRN (07:45)
[2017-12-06] MEDS: Fluticasone-Salmeterol 250-50mcg Diskus INH SCH ×2 (07:46→19:17)
--- NOTE | 2017-12-06 08:31 | RAD ---
HISTORY: chest tube, left pleural effusion COMPARISON: 12/05/2017. FINDINGS: LUNGS: There is persistent dense consolidation in the right lower lobe and interval improved aeration in the left lower lobe. PLEURA: The left chest tube remains stable position. Suspect small right pleural effusion. Within the confines of limited portable examination, no definite evidence for pneumothorax. CARDIOVASCULAR: Normal. OSSEOUS STRUCTURES: No significant abnormalities. VISUALIZED UPPER ABDOMEN: Normal. OTHER FINDINGS: None. IMPRESSION: Stable position of left chest tube. Limited portable examination, allowing for this no definite evidence for pneumothorax. Persistent dense consolidation in the right lower lobe and small right pleural effusion.
[2017-12-06] MEDS: Docusate-Senna 50 mg-8.6 mg Tab PO SCH ×2 (10:07→17:46)
[2017-12-06] MEDS ORDERED: Midazolam 2 MG/2 ML VIAL ONE ×2 (10:41)
[2017-12-06] MEDS ORDERED: Lactated Ringer's 1,000 ML IV ONE (10:50)
[2017-12-06] MEDS ORDERED: Lidocaine/Epinephrine 1% 1:100000 10 ML IJ ONE (10:55)
[2017-12-06] MEDS ORDERED: Bupivacaine 0.25% Inj(30mL) ONE (10:55)
[2017-12-06] MEDS ORDERED: Ketamine 50 mg/ml Inj (10 ml) ONE (10:56)
--- NOTE | 2017-12-06 12:48 | PCM.SURG1 ---
Surgeon's Initial Post Op Note - Surgeon's Notes Surgeon: Dr. New Agency Sales Representative: Hira PGY3; Maria Elena PGY1 Type of Anesthesia: IV Sedation Pre-Operative Diagnosis: Left chest wound Operative Findings: see operative report Post-Operative Diagnosis: same Operation Performed: Interval Debridement; Replacement of Wound Vac Specimen/Specimens Removed: Debrided tissue for culture Estimated Blood Loss: EBL {In ML}: 5 Blood Products Given: N/A Drains Used: Wound Vac Post-Op Condition: Good Date of Surgery/Procedure: 12/06/17 Time of Surgery/Procedure: 11:27
[2017-12-06] MEDS: Enoxaparin 40 mg Syringe SC SCH (14:46)
--- NOTE | 2017-12-06 17:38 | CP.PCM.PN ---
Subjective - Date & Time of Evaluation Date of Evaluation: 12/06/17 Time of Evaluation: 07:20 - Subjective Subjective: clinically same Objective - Vital Signs/Intake and Output Vital Signs (last 24 hours): Temp Pulse Resp BP Pulse Ox 97.6 F 99 H 20 115/69 97 12/06/17 15:05 12/06/17 15:05 12/06/17 15:05 12/06/17 15:05 12/06/17 15:05 Intake and Output: 12/06/17 12/06/17 06:59 18:59 Intake Total 650 360 Output Total 1106 431 Balance -456 -71 - Medications Medications: Current Medications Acetaminophen (Tylenol 325mg Tab) 650 mg PO Q6 PRN PRN Reason: Fever >100.4 F Last Admin: 12/01/17 07:39 Dose: 650 mg Albuterol/Ipratropium (Duoneb 3 Mg/0.5 Mg (3 Ml) Ud) 3 ml INH RQ6 PRN PRN Reason: Shortness of Breath Last Admin: 12/06/17 07:45 Dose: 3 ml Aspirin (Ecotrin) 81 mg PO DAILY [facility] Last Admin: 12/06/17 10:08 Dose: 81 mg Enoxaparin Sodium (Lovenox) 40 mg SC DAILY [facility] Last Admin: 12/06/17 14:46 Dose: 40 mg Guaifenesin/Dextromethorphan (Robitussin Dm) 15 ml PO Q6H [facility] Last Admin: 12/06/17 13:50 Dose: Not Given Vancomycin HCl 1,250 mg/ (Sodium Chloride) 250 mls @ 166.6 mls/hr IVPB Q12H [facility] Last Admin: 12/06/17 14:07 Dose: 166.6 mls/hr Metronidazole (Flagyl) 500 mg in 100 mls @ 100 mls/hr IVPB Q8 [facility] PRN Reason: Protocol Last Admin: 12/06/17 14:02 Dose: 100 mls/hr Losartan Potassium (Cozaar) 50 mg PO DAILY [facility] Last Admin: 12/06/17 10:07 Dose: 50 mg Metoprolol Tartrate (Lopressor) 25 mg PO BID [facility] Last Admin: 12/06/17 10:08 Dose: 25 mg Morphine Sulfate (Morphine) 2 mg IVP Q4H PRN PRN Reason: Pain, moderate (4-7) Last Admin: 12/06/17 05:21 Dose: 2 mg Fluticasone/Salmeterol (Advair Diskus 250/50) 1 puff INH RQ12 [facility] Last Admin: 12/06/17 07:46 Dose: 1 puff Senna/Docusate Sodium (Senokot S 50 Mg-8.6 Mg) 1 tab PO BID [facility] Last Admin: 12/06/17 10:07 Dose: Not Given - Labs Labs: 12/06/17 06:24 12/06/17 06:24 PT 14.2 SECONDS (9.7-12.2) H 11/29/17 14:41 INR 1.3 11/29/17 14:41 APTT 19 SECONDS (21-34) L 11/29/17 14:41 - Constitutional Appears: Well - Head Exam Head Exam: ATRAUMATIC, NORMAL INSPECTION, NORMOCEPHALIC - Eye Exam Eye Exam: EOMI, Normal appearance, PERRL Pupil Exam: NORMAL ACCOMODATION, PERRL - ENT Exam ENT Exam: Mucous Membranes Moist, Normal Exam - Neck Exam Neck Exam: Full ROM, Normal Inspection. absent: Lymphadenopathy - Respiratory Exam Respiratory Exam: Decreased Breath Sounds - Cardiovascular Exam Cardiovascular Exam: REGULAR RHYTHM, +S1, +S2 - GI/Abdominal Exam GI & Abdominal Exam: Soft, Diminished Bowel Sounds - Rectal Exam Rectal Exam: Deferred
--- NOTE | 2017-12-06 18:21 | PN ---
DATE: SUBJECTIVE: The patient underwent change of the wound VAC today. He denies any substernal chest pain. PHYSICAL EXAMINATION: VITAL SIGNS: Blood pressure 137/82, heart rate 93, respirations 22, temperature 98.7. HEENT: Pale conjunctivae. CHEST: Diminished breath sounds over the bases. HEART: Heart sounds S1 and S2, regular and distant. EXTREMITIES: 2+ pitting edema. LABORATORY DATA: Today's SMA-7 is within normal limits except for BUN of 7. Calcium is below normal at 8.1. Today's hemoglobin and hematocrit are 9.9 and 38.4, white count 10.5, platelet count 433,000. Today's chest x-ray report revealed stable position of the left chest tube, persistent dense consolidation in the right lower lobe and small right pleural effusion. ASSESSMENT: 1. Atypical chest pain. 2. Bilateral pleural effusion, status post left side chest tube placement. 3. Left flank anterior abdominal wall abscess, status post incision and drainage and change of the wound VAC. 4. Morbid obesity. 5. Sleep apnea. 6. Anemia. RECOMMENDATIONS: Continue current Cozaar 60 mg once daily, aspirin 81 mg once a day, IV Flagyl 500 mg every 8 hours, Lopressor 25 mg once a day, Lovenox at 20 mg once a day, 15 mL q.6 hours, vancomycin 1250 mg q.12 hours. Lazaro Omalley MD
--- NOTE | 2017-12-07 03:25 | OP ---
PROCEDURE DATE: 12/06/2017 PREOPERATIVE DIAGNOSIS: Left flank and chest wound, status post debridement and wound VAC placement. POSTOPERATIVE DIAGNOSIS: Left flank and chest wound, status post debridement and wound VAC placement. PROCEDURE DONE: 1. Excisional debridement of the left flank and chest wall wound. 2. Negative pressure wound VAC therapy of approximately 15 x 10 x 15 cm wound. INTRAOPERATIVE FINDINGS: The patient had a red granulation tissue and the patient has a very mild necrosis of the wound that was debrided and it was sent off the table for the pathology. DESCRIPTION OF PROCEDURE: On intraoperative steps, this is a 42-year-old male who was diagnosed with left flank and left chest wall wound and the patient underwent two previous debridement as well as wound VAC change, and the patient was consented for the similar procedure again, brought to the OR, placed on the patient bed. After the induction of sedation, the left flank and chest wound was prepped and draped in the usual sterile fashion and the sponge was taken out. After removal of the previous sponge, the cavity was irrigated and there was a necrotic tissue in the wound that was debrided and the debrided tissue was sent off the table for pathology. After hemostasis was achieved, new sponge was placed and the wound VAC was created. After that, the wound VAC was connected to the suction. There was no leak identified, and the patient was sent to the ICU for further care. There was no apparent complication. Count of the instrument and gauze was correct. Andres New MD
[2017-12-07] MEDS: metroNIDAZOLE IV 500 mg/100 ml 500 MG/100 ML BAG IVPB SCH ×3 (05:10→21:07)
[2017-12-07] MEDS: guaiFENesin DM 100 mg-10 mg/5 ml UD PO SCH ×3 (05:11→18:22)
--- NOTE | 2017-12-07 08:26 | RAD ---
HISTORY: chest tube, left pleural effusion COMPARISON: Chest x-ray 12/06/2017 TECHNIQUE: Chest one view . FINDINGS: LUNGS: Stable right lower lung field airspace opacity. Mild left basilar atelectasis. PLEURA: Stable left-sided chest tube with tip overlying the left mid lung field. Small right pleural effusion, unchanged. Probable small left pleural effusion. CARDIOVASCULAR: Heart size is within normal limits. OSSEOUS STRUCTURES: Visualized osseous structures are unremarkable. VISUALIZED UPPER ABDOMEN: Unremarkable. OTHER FINDINGS: None. IMPRESSION: Stable right lower lung field airspace opacity. Stable left-sided chest tube. Small right pleural effusion, unchanged, and a probable small left pleural effusion.
--- NOTE | 2017-12-07 09:07 | CP.PCM.PN ---
<Dolly Iniguez - Last Filed: 12/07/17 09:04> Subjective - Date & Time of Evaluation Date of Evaluation: 12/07/17 Time of Evaluation: 07:00 - Subjective Subjective: Surgery: Dr. New Pt seen and examined. No acute overnight events. States hes feeling better and pain is well controlled at this time. Denies N/V, F/C, or SOB. Objective - Vital Signs/Intake and Output Vital Signs (last 24 hours): Temp Pulse Resp BP Pulse Ox 97.4 F L 86 20 119/76 96 12/07/17 08:07 12/07/17 08:07 12/07/17 08:07 12/07/17 08:07 12/07/17 08:07 Intake and Output: 12/07/17 12/07/17 06:59 18:59 Intake Total 650 Output Total 1050 Balance -400 - Medications Medications: Current Medications Acetaminophen (Tylenol 325mg Tab) 650 mg PO Q6 PRN PRN Reason: Fever >100.4 F Last Admin: 12/01/17 07:39 Dose: 650 mg Albuterol/Ipratropium (Duoneb 3 Mg/0.5 Mg (3 Ml) Ud) 3 ml INH RQ6 PRN PRN Reason: Shortness of Breath Last Admin: 12/06/17 07:45 Dose: 3 ml Aspirin (Ecotrin) 81 mg PO DAILY [facility] Last Admin: 12/06/17 10:08 Dose: 81 mg Enoxaparin Sodium (Lovenox) 40 mg SC DAILY [facility] Last Admin: 12/06/17 14:46 Dose: 40 mg Guaifenesin/Dextromethorphan (Robitussin Dm) 15 ml PO Q6H [facility] Last Admin: 12/07/17 05:11 Dose: 15 ml Vancomycin HCl 1,250 mg/ (Sodium Chloride) 250 mls @ 166.6 mls/hr IVPB Q12H [facility] Last Admin: 12/07/17 02:15 Dose: 166.6 mls/hr Metronidazole (Flagyl) 500 mg in 100 mls @ 100 mls/hr IVPB Q8 [facility] PRN Reason: Protocol Last Admin: 12/07/17 05:10 Dose: 100 mls/hr Losartan Potassium (Cozaar) 50 mg PO DAILY [facility] Last Admin: 12/06/17 10:07 Dose: 50 mg Metoprolol Tartrate (Lopressor) 25 mg PO BID [facility] Last Admin: 12/06/17 17:46 Dose: 25 mg Morphine Sulfate (Morphine) 2 mg IVP Q4H PRN PRN Reason: Pain, moderate (4-7) Last Admin: 12/06/17 23:30 Dose: 2 mg Fluticasone/Salmeterol (Advair Diskus 250/50) 1 puff INH RQ12 [facility] Last Admin: 12/06/17 19:17 Dose: 1 puff Senna/Docusate Sodium (Senokot S 50 Mg-8.6 Mg) 1 tab PO BID [facility] Last Admin: 12/06/17 17:46 Dose: 1 tab - Labs Labs: 12/06/17 06:24 12/06/17 06:24 PT 14.2 SECONDS (9.7-12.2) H 11/29/17 14:41 INR 1.3 11/29/17 14:41 APTT 19 SECONDS (21-34) L 11/29/17 14:41 - Constitutional Appears: Well, No Acute Distress - Head Exam Head Exam: ATRAUMATIC, NORMOCEPHALIC - Eye Exam Eye Exam: Normal appearance - ENT Exam ENT Exam: Mucous Membranes Moist - Respiratory Exam Respiratory Exam: NORMAL BREATHING PATTERN Additional comments: L CT in place - Cardiovascular Exam Cardiovascular Exam: RRR - GI/Abdominal Exam GI & Abdominal Exam: Soft. absent: Tenderness - Neurological Exam Neurological Exam: Alert, Awake, Oriented x3 - Skin Skin Exam: Dry, Warm Assessment and Plan - Assessment and Plan (Free Text) Assessment: 42M with necrotizing chest wall infection s/p debridement and wound vac placement Plan: - cont to monitor CT output - will cont wound vac changes every 2-3 days - encourage ambulation & IS - d/w Dr. Virgen Iniguez, PGY-3 <Andres New B - Last Filed: 12/10/17 15:51> Objective - Vital Signs/Intake and Output Vital Signs (last 24 hours): Temp Pulse Resp BP Pulse Ox 98.1 F 96 H 20 128/77 94 L 12/10/17 10:03 12/10/17 10:03 12/10/17 10:03 12/10/17 11:24 12/10/17 10:03 Intake and Output: 12/10/17 12/10/17 06:59 18:59 Intake Total 1400 Output Total 650 Balance 750 - Medications Medications: Current Medications Acetaminophen (Tylenol 325mg Tab) 650 mg PO Q6 PRN PRN Reason: Fever >100.4 F Last Admin: 12/09/17 10:06 Dose: 650 mg Albuterol/Ipratropium (Duoneb 3 Mg/0.5 Mg (3 Ml) Ud) 3 ml INH RQ6 PRN PRN Reason: Shortness of Breath Last Admin: 12/10/17 07:45 Dose: 3 ml Aspirin (Ecotrin) 81 mg PO DAILY [facility] Last Admin: 12/10/17 10:10 Dose: 81 mg Clonidine HCl (Catapres) 0.1 mg PO BID [facility] Last Admin: 12/10/17 10:10 Dose: 0.1 mg Enoxaparin Sodium (Lovenox) 40 mg SC DAILY [facility] Last Admin: 12/10/17 10:10 Dose: 40 mg Furosemide (Lasix) 40 mg PO DAILY [facility] Last Admin: 12/10/17 11:24 Dose: 40 mg Guaifenesin/Dextromethorphan (Robitussin Dm) 15 ml PO Q6H [facility] Last Admin: 12/10/17 11:26 Dose: 15 ml Vancomycin HCl 1,250 mg/ (Sodium Chloride) 250 mls @ 166.6 mls/hr IVPB Q12H [facility] Last Admin: 12/10/17 13:59 Dose: 166.6 mls/hr Piperacillin Sod/Tazobactam Sod (Zosyn 3.375 Gm Iv Premix) 3.375 gm in 50 mls @ 100 mls/hr IVPB Q8H [facility] PRN Reason: Protocol Last Admin: 12/10/17 13:58 Dose: 100 mls/hr Losartan Potassium (Cozaar) 50 mg PO DAILY [facility] Last Admin: 12/10/17 10:10 Dose: 50 mg Metoprolol Tartrate (Lopressor) 25 mg PO BID [facility] Last Admin: 12/10/17 10:13 Dose: 25 mg Morphine Sulfate (Morphine) 2 mg IVP Q4H PRN PRN Reason: Pain, moderate (4-7) Last Admin: 12/10/17 12:05 Dose: 2 mg Fluticasone/Salmeterol (Advair Diskus 250/50) 1 puff INH RQ12 [facility] Last Admin: 12/10/17 07:45 Dose: 1 puff Senna/Docusate Sodium (Senokot S 50 Mg-8.6 Mg) 1 tab PO BID [facility] Last Admin: 12/10/17 10:10 Dose: 1 tab - Labs Labs: 12/09/17 06:30 12/09/17 06:30 PT 14.2 SECONDS (9.7-12.2) H 11/29/17 14:41 INR 1.3 11/29/17 14:41 APTT 19 SECONDS (21-34) L 11/29/17 14:41 Attending/Attestation - Attestation I have personally seen and examined this patient.: Yes I have fully participated in the care of the patient.: Yes I have reviewed all pertinent clinical information, including history, physical exam and plan: Yes Notes (Text): Pt was seen and examined at bedside Agree with above note and assessment Pt is improving clinically OR for Wound vac change Pt is refusing wound vac change at bedside c/w IV antibiotics Chest tube to water seal c.w current mx Plan d.w pt in detail
[2017-12-07] MEDS: Docusate-Senna 50 mg-8.6 mg Tab PO SCH ×2 (09:12→17:45)
[2017-12-07] MEDS: Enoxaparin 40 mg Syringe SC SCH (09:12)
[2017-12-07] MEDS: Fluticasone-Salmeterol 250-50mcg Diskus INH SCH ×2 (10:19→20:22)
--- NOTE | 2017-12-07 12:58 | CP.PCM.PN ---
Subjective - Date & Time of Evaluation Date of Evaluation: 12/07/17 Time of Evaluation: 07:20 - Subjective Subjective: clinically same Objective - Vital Signs/Intake and Output Vital Signs (last 24 hours): Temp Pulse Resp BP Pulse Ox 97.4 F L 86 20 119/76 96 12/07/17 08:07 12/07/17 08:07 12/07/17 08:07 12/07/17 08:07 12/07/17 08:07 Intake and Output: 12/07/17 12/07/17 06:59 18:59 Intake Total 650 Output Total 1050 Balance -400 - Medications Medications: Current Medications Acetaminophen (Tylenol 325mg Tab) 650 mg PO Q6 PRN PRN Reason: Fever >100.4 F Last Admin: 12/01/17 07:39 Dose: 650 mg Albuterol/Ipratropium (Duoneb 3 Mg/0.5 Mg (3 Ml) Ud) 3 ml INH RQ6 PRN PRN Reason: Shortness of Breath Last Admin: 12/06/17 07:45 Dose: 3 ml Aspirin (Ecotrin) 81 mg PO DAILY [facility] Last Admin: 12/07/17 09:12 Dose: 81 mg Enoxaparin Sodium (Lovenox) 40 mg SC DAILY [facility] Last Admin: 12/07/17 09:12 Dose: 40 mg Guaifenesin/Dextromethorphan (Robitussin Dm) 15 ml PO Q6H [facility] Last Admin: 12/07/17 12:08 Dose: 15 ml Vancomycin HCl 1,250 mg/ (Sodium Chloride) 250 mls @ 166.6 mls/hr IVPB Q12H [facility] Last Admin: 12/07/17 02:15 Dose: 166.6 mls/hr Metronidazole (Flagyl) 500 mg in 100 mls @ 100 mls/hr IVPB Q8 [facility] PRN Reason: Protocol Last Admin: 12/07/17 05:10 Dose: 100 mls/hr Losartan Potassium (Cozaar) 50 mg PO DAILY [facility] Last Admin: 12/07/17 09:13 Dose: Not Given Metoprolol Tartrate (Lopressor) 25 mg PO BID [facility] Last Admin: 12/07/17 09:13 Dose: 25 mg Morphine Sulfate (Morphine) 2 mg IVP Q4H PRN PRN Reason: Pain, moderate (4-7) Fluticasone/Salmeterol (Advair Diskus 250/50) 1 puff INH RQ12 [facility] Last Admin: 12/07/17 10:19 Dose: 1 puff Senna/Docusate Sodium (Senokot S 50 Mg-8.6 Mg) 1 tab PO BID [facility] Last Admin: 12/07/17 09:12 Dose: 1 tab - Labs Labs: 12/06/17 06:24 12/06/17 06:24 PT 14.2 SECONDS (9.7-12.2) H 11/29/17 14:41 INR 1.3 11/29/17 14:41 APTT 19 SECONDS (21-34) L 11/29/17 14:41 - Constitutional Appears: Well - Head Exam Head Exam: ATRAUMATIC, NORMAL INSPECTION, NORMOCEPHALIC - Eye Exam Eye Exam: EOMI, Normal appearance, PERRL Pupil Exam: NORMAL ACCOMODATION, PERRL - ENT Exam ENT Exam: Mucous Membranes Moist, Normal Exam - Neck Exam Neck Exam: Full ROM, Normal Inspection. absent: Lymphadenopathy - Respiratory Exam Respiratory Exam: Decreased Breath Sounds - Cardiovascular Exam Cardiovascular Exam: REGULAR RHYTHM, +S1, +S2 - GI/Abdominal Exam GI & Abdominal Exam: Soft, Diminished Bowel Sounds - Rectal Exam Rectal Exam: Deferred Assessment and Plan (1) Abdominal pain Status: Acute (2) Abscess Status: Acute (3) Left upper quadrant abdominal swelling Status: Acute (4) Pleural effusion Status: Acute (5) Pneumonia Status: Acute (6) Pulmonary hypertension Status: Acute (7) Bronchitis Status: Acute (8) Bronchospasm Status: Acute (9) Chronic venous stasis dermatitis Status: Acute (10) Cough Status: Acute (11) Influenza-like illness Status: Acute (12) Leg edema Status: Acute (13) Leg swelling Status: Acute (14) Medical assessment Status: Acute (15) Morbid obesity Status: Acute (16) Pedal edema Status: Acute (17) Reactive airway disease Status: Acute (18) Rhabdomyolysis Status: Acute (19) Tinea pedis Status: Acute (20) Upper respiratory infection Status: Acute (21) Uvulitis Status: Acute - Assessment and Plan (Free Text) Plan: Follow-up with the surgery Continue with IV antibiotic CT in place Wound VAC changes every 2-3 days ID consultations Pain medications GI and DVT prophylaxis
[2017-12-07 13:58] LABS: BASO # 0.1 K/uL (0.0-0.2); BASO % 1.1 % (0.0-2.0); EOS # 0.5 K/uL (0.0-0.7); HEMOGLOBIN 10.4 g/dL (12.0-18.0); LYMPH # 1.6 K/uL (1.0-4.3); LYMPH % 13.6 % (20.0-40.0); MEAN CELL VOLUME 81.3 fL (80.0-94.0); MEAN CORPUSCULAR HEMOGLOBIN 26.7 pg (27.0-31.0); MEAN CORPUSCULAR HGB CONC 32.9 g/dL (33.0-37.0); MEAN PLATELET VOLUME 7.1 fL (7.2-11.7); MONO # 0.9 K/uL (0.0-0.8); MONO % 7.8 % (0.0-10.0); NEUT # 8.6 K/uL (1.8-7.0); NEUT % 73.5 % (50.0-75.0); RBC 3.9 Mil/uL (4.40-5.90); RED CELL DISTRIBUTION WIDTH 16.1 % (11.5-14.5); WHITE BLOOD COUNT 11.7 K/uL (4.8-10.8)
[2017-12-07 14:21] LABS: ALB/GLOB RATIO 0.9 (1.0-2.1); ALBUMIN 3.1 g/dL (3.5-5.0); ALT/SGPT 62 U/L (21-72); AST/SGOT 63 U/L (17-59); BLOOD UREA NITROGEN 8 mg/dL (9-20); CALCIUM 8.5 mg/dl (8.6-10.4); GFR AFRICAN-AMERICAN > 60; GFR NON-AFRICAN AMERICAN > 60
[2017-12-07] MEDS: Morphine 4 MG/ML VIAL IVP PRN (21:00)
--- NOTE | 2017-12-07 22:32 | CP.PCM.PN ---
Subjective - Date & Time of Evaluation Date of Evaluation: 12/07/17 Time of Evaluation: 22:32 - Subjective Subjective: AFEBRILE, STATES FEELING BETTER. S/P DEBRIDEMENTLT CHESTWALL/AND REPLACEMENT WOUND VAC 12/06/17. Operation Performed: Interval Debridement; Replacement of Wound Vac Specimen/Specimens Removed: Debrided tissue for culture. PAIN WELL CONTROLLED. Objective - Vital Signs/Intake and Output Vital Signs (last 24 hours): Temp Pulse Resp BP Pulse Ox 97.4 F L 86 20 138/84 99 12/07/17 15:04 12/07/17 15:04 12/07/17 15:04 12/07/17 17:44 12/07/17 15:04 Intake and Output: 12/07/17 12/08/17 18:59 06:59 Intake Total 810 Output Total 10 Balance 800 - Medications Medications: Current Medications Acetaminophen (Tylenol 325mg Tab) 650 mg PO Q6 PRN PRN Reason: Fever >100.4 F Last Admin: 12/01/17 07:39 Dose: 650 mg Albuterol/Ipratropium (Duoneb 3 Mg/0.5 Mg (3 Ml) Ud) 3 ml INH RQ6 PRN PRN Reason: Shortness of Breath Last Admin: 12/06/17 07:45 Dose: 3 ml Aspirin (Ecotrin) 81 mg PO DAILY [facility] Last Admin: 12/07/17 09:12 Dose: 81 mg Enoxaparin Sodium (Lovenox) 40 mg SC DAILY [facility] Last Admin: 12/07/17 09:12 Dose: 40 mg Guaifenesin/Dextromethorphan (Robitussin Dm) 15 ml PO Q6H [facility] Last Admin: 12/07/17 18:22 Dose: 15 ml Vancomycin HCl 1,250 mg/ (Sodium Chloride) 250 mls @ 166.6 mls/hr IVPB Q12H [facility] Last Admin: 12/07/17 16:50 Dose: 166.6 mls/hr Metronidazole (Flagyl) 500 mg in 100 mls @ 100 mls/hr IVPB Q8 [facility] PRN Reason: Protocol Last Admin: 12/07/17 21:07 Dose: 100 mls/hr Losartan Potassium (Cozaar) 50 mg PO DAILY [facility] Last Admin: 12/07/17 09:13 Dose: Not Given Metoprolol Tartrate (Lopressor) 25 mg PO BID [facility] Last Admin: 12/07/17 17:44 Dose: 25 mg Morphine Sulfate (Morphine) 2 mg IVP Q4H PRN PRN Reason: Pain, moderate (4-7) Last Admin: 12/07/17 21:00 Dose: 2 mg Fluticasone/Salmeterol (Advair Diskus 250/50) 1 puff INH RQ12 [facility] Last Admin: 12/07/17 20:22 Dose: Not Given Senna/Docusate Sodium (Senokot S 50 Mg-8.6 Mg) 1 tab PO BID [facility] Last Admin: 12/07/17 17:45 Dose: 1 tab - Labs Labs: 12/07/17 13:53 12/07/17 13:53 PT 14.2 SECONDS (9.7-12.2) H 11/29/17 14:41 INR 1.3 11/29/17 14:41 APTT 19 SECONDS (21-34) L 11/29/17 14:41 - Constitutional Appears: No Acute Distress - Head Exam Head Exam: NORMAL INSPECTION - Eye Exam Eye Exam: EOMI, PERRL - ENT Exam ENT Exam: Normal Oropharynx - Neck Exam Neck Exam: Normal Inspection - Respiratory Exam Respiratory Exam: Chest Wall Tenderness (LT.CT IN PLACE. +VE WOUND VAC DRAINING SERSANGUINOUS DRAINAGE.) - Cardiovascular Exam Cardiovascular Exam: REGULAR RHYTHM, +S1, +S2 - GI/Abdominal Exam GI & Abdominal Exam: Soft, Tenderness (LEFT ABDOMINAL WALL AT EXIT SIDE DRAINAGE TUBE.), Normal Bowel Sounds - Extremities Exam Extremities Exam: absent: Calf Tenderness, Pedal Edema - Neurological Exam Neurological Exam: Awake, Oriented x3 - Psychiatric Exam Psychiatric exam: Normal Mood - Skin Skin Exam: Normal Color, Warm Assessment and Plan (1) Pneumonia Assessment & Plan: PATIENT ON iv ANTIBIOTICS. lEFT CHEST TUBE WOUND CARE PER SURGERY/CT SURGEON Status: Acute (2) Left upper quadrant abdominal swelling Assessment & Plan: CONTINUE IV ZOSYN 3.375 EVERY 8 HOURLY 11/15/17 CONTINUE IV VANCOMYCIN 1250 MG iv EVERY 12 HOURLY FOR mrsa STREP COVERAGE . ON IV FLAGYL 500MG IV Q8HRLY FOR ANAEROBIC COVERAGE. 12/01/17 . F/U CULTURES AND SPECIAL STAINS-P PER SURGERY WOUND VAC IN PLACE. Status: Acute (3) Bronchitis Status: Acute (4) Morbid obesity Status: Acute
--- NOTE | 2017-12-07 23:02 | PN ---
DATE: 12/07/2017. SUBJECTIVE: The patient denies any shortness of breath while on nasal O2. He denies retrosternal chest pain. He feels anxious as compared to yesterday. PHYSICAL EXAMINATION: VITAL SIGNS: Blood pressure 138/84, heart rate 86, temperature 97.4, respiration 20. HEENT: Pale conjunctivae. CHEST: Diminished breath sounds over both bases. HEART: S1 and S2 regular. EXTREMITIES: 2+ pitting edema. LABORATORIES: Today's SMA-7 is within normal limits except for BUN of 8. Calcium is below normal at 8.5. Hemoglobin and hematocrit 10.4 and 31.7, white count 11.7, platelet count 475,000. JOSEPH is negative and double stranded DNA antibody is less than 1. ASSESSMENT: 1. Bilateral pleural effusion status post left side chest tube placement. 2. Morbid obesity. 3. Sleep apnea. 4. Hypertension. 5. Mild anemia. RECOMMENDATIONS: Continue current Cozaar 50 mg once a day, aspirin 81 mg once a day, Flagyl 500 mg intravenously every 8 hours, Lopressor 25 mg twice a day, Lovenox 40 mg subcutaneously once a day and vancomycin at 1250 mg every 12 hours. Lazaro Omalley MD
[2017-12-07] MEDS: Piperacill/Tazo 3.375gm in Dex 3.375 GM/50 ML BAG IVPB SCH (23:54)
[2017-12-08] MEDS: guaiFENesin DM 100 mg-10 mg/5 ml UD PO SCH ×5 (00:08→23:33)
[2017-12-08] MEDS: metroNIDAZOLE IV 500 mg/100 ml 500 MG/100 ML BAG IVPB SCH ×3 (05:14→21:00)
[2017-12-08] MEDS: Piperacill/Tazo 3.375gm in Dex 3.375 GM/50 ML BAG IVPB SCH ×3 (05:54→22:19)
[2017-12-08] MEDS: Albuterol-Ipratrop 3 mg / 0.5 (3 ml) UD INH PRN ×2 (08:11→13:31)
[2017-12-08] MEDS: Fluticasone-Salmeterol 250-50mcg Diskus INH SCH ×2 (08:11→20:15)
--- NOTE | 2017-12-08 08:17 | CP.PCM.PN ---
Subjective - Date & Time of Evaluation Date of Evaluation: 12/08/17 Time of Evaluation: 08:12 - Subjective Subjective: CT Surgery: Dr Elizabeth General Surgery: Dr New Pt S&E. NAEO. Plan for wound vac change today. Case d/w Dr New and Dr Elizabeth regarding plan for closure of abdominal wound with intra-thoracic connection. In a smaller pt, thoracotomy with biologic mesh repair of thoracic defect would a viable option, but given pts body habitus and comorbidities it would be a technically challenging surgery and pt would likely have post-op wound/recovery complications. Given this, can consider primarily closing defect from the outside, with placement of ARUNA drains to monitor for further fluid accumulation underneath the primary closure. If puss or fluid continues to accumulate pt may need the above thoracic procedure regardless, but conservative measures would be the best option at this time. Can consider repeating CT scan to evaluate for the fluid collections once the wound has been closed. Will plan for new wound vac change today and evaluate the wound with revised plan moving forward case d/w attendings. Ellyn, PGY3 Objective - Vital Signs/Intake and Output Vital Signs (last 24 hours): Temp Pulse Resp BP Pulse Ox 98.4 F 88 20 131/79 96 12/08/17 00:00 12/08/17 00:00 12/08/17 00:00 12/08/17 00:00 12/08/17 00:00 Intake and Output: 12/08/17 12/08/17 06:59 18:59 Intake Total 850 520 Output Total 610 20 Balance 240 500 - Medications Medications: Current Medications Acetaminophen (Tylenol 325mg Tab) 650 mg PO Q6 PRN PRN Reason: Fever >100.4 F Last Admin: 12/01/17 07:39 Dose: 650 mg Albuterol/Ipratropium (Duoneb 3 Mg/0.5 Mg (3 Ml) Ud) 3 ml INH RQ6 PRN PRN Reason: Shortness of Breath Last Admin: 12/08/17 08:11 Dose: 3 ml Aspirin (Ecotrin) 81 mg PO DAILY [facility] Last Admin: 12/07/17 09:12 Dose: 81 mg Enoxaparin Sodium (Lovenox) 40 mg SC DAILY [facility] Last Admin: 12/07/17 09:12 Dose: 40 mg Guaifenesin/Dextromethorphan (Robitussin Dm) 15 ml PO Q6H [facility] Last Admin: 12/08/17 05:12 Dose: 15 ml Vancomycin HCl 1,250 mg/ (Sodium Chloride) 250 mls @ 166.6 mls/hr IVPB Q12H [facility] Last Admin: 12/08/17 02:20 Dose: 166.6 mls/hr Metronidazole (Flagyl) 500 mg in 100 mls @ 100 mls/hr IVPB Q8 [facility] PRN Reason: Protocol Last Admin: 12/08/17 05:14 Dose: 100 mls/hr Piperacillin Sod/Tazobactam Sod (Zosyn 3.375 Gm Iv Premix) 3.375 gm in 50 mls @ 100 mls/hr IVPB Q8H [facility] PRN Reason: Protocol Last Admin: 12/08/17 05:54 Dose: 100 mls/hr Losartan Potassium (Cozaar) 50 mg PO DAILY [facility] Last Admin: 12/07/17 09:13 Dose: Not Given Metoprolol Tartrate (Lopressor) 25 mg PO BID [facility] Last Admin: 12/07/17 17:44 Dose: 25 mg Morphine Sulfate (Morphine) 2 mg IVP Q4H PRN PRN Reason: Pain, moderate (4-7) Last Admin: 12/07/17 21:00 Dose: 2 mg Fluticasone/Salmeterol (Advair Diskus 250/50) 1 puff INH RQ12 [facility] Last Admin: 12/08/17 08:11 Dose: 1 puff Senna/Docusate Sodium (Senokot S 50 Mg-8.6 Mg) 1 tab PO BID [facility] Last Admin: 12/07/17 17:45 Dose: 1 tab - Labs Labs: 12/07/17 13:53 12/07/17 13:53 PT 14.2 SECONDS (9.7-12.2) H 11/29/17 14:41 INR 1.3 11/29/17 14:41 APTT 19 SECONDS (21-34) L 11/29/17 14:41 - Constitutional Appears: No Acute Distress - ENT Exam ENT Exam: Mucous Membranes Moist - Respiratory Exam Respiratory Exam: absent: Accessory Muscle Use, Respiratory Distress - Cardiovascular Exam Cardiovascular Exam: REGULAR RHYTHM. absent: Tachycardia - GI/Abdominal Exam GI & Abdominal Exam: Soft. absent: Distended - Neurological Exam Neurological Exam: Alert, Awake - Psychiatric Exam Psychiatric exam: Anxious - Skin Skin Exam: Normal Color
[2017-12-08] MEDS: Enoxaparin 40 mg Syringe SC SCH (09:55)
[2017-12-08] MEDS: Docusate-Senna 50 mg-8.6 mg Tab PO SCH ×2 (09:56→18:12)
[2017-12-08] MEDS ORDERED: Lidocaine/Epinephrine 1% 1:100000 10 ML IJ ONE (11:08)
[2017-12-08] MEDS ORDERED: Bupivacaine 0.25% Inj(30mL) ONE (11:08)
[2017-12-08] MEDS ORDERED: Ketamine 50 mg/ml Inj (10 ml) ONE (11:11)
[2017-12-08] MEDS ORDERED: Midazolam 2 MG/2 ML VIAL ONE ×2 (11:45→11:59)
--- NOTE | 2017-12-08 12:32 | PCM.SURG1 ---
Surgeon's Initial Post Op Note - Surgeon's Notes Surgeon: Dr. New Coppersmith Apprentice: Maria Elena PGY1; Ellyn PGY3 Type of Anesthesia: IV Sedation Pre-Operative Diagnosis: left chest wall infection Operative Findings: see operative report Post-Operative Diagnosis: same Operation Performed: Wound vac replacement Specimen/Specimens Removed: none Estimated Blood Loss: EBL {In ML}: 2 Blood Products Given: N/A Drains Used: Wound Vac Post-Op Condition: Good Date of Surgery/Procedure: 12/08/17 Time of Surgery/Procedure: 12:32
[2017-12-08] MEDS: Morphine 4 MG/ML VIAL IVP PRN ×2 (13:42→22:13)
--- NOTE | 2017-12-08 17:16 | CT ---
PROCEDURE: CT Chest, Abdomen and Pelvis without intravenous contrast HISTORY: interval changes. Abscess left chest wall COMPARISON: None. TECHNIQUE: Radiation dose: Total exam DLP = 1965.61 mGy-cm. This CT exam was performed using one or more of the following dose reduction techniques: Automated exposure control, adjustment of the mA and/or kV according to patient size, and/or use of iterative reconstruction technique. FINDINGS: Please note that examination is limited due to patient body habitus. A large portion of the chest wall and abdominal wall could not be evaluated due to body habitus. CT CHEST WITHOUT CONTRAST: LUNGS: Subsegmental atelectasis both lower lobes. No pulmonary infiltrate. MEDIASTINUM: Unremarkable. Normal caliber aorta and pulmonary arterial trunk. Normal size heart. LYMPH NODES: Unremarkable. PLEURA: Minimal left pleural effusion. No pneumothorax. Left chest tube noted. Elevated right hemidiaphragm as on prior examination. BONES: Unremarkable. OTHER FINDINGS: None. CT ABDOMEN AND PELVIS: LIVER: Unremarkable. No gross lesion or ductal dilatation. GALLBLADDER AND BILE DUCTS: Unremarkable. PANCREAS: Unremarkable. No gross lesion or ductal dilatation. SPLEEN: Unremarkable. ADRENALS: Unremarkable. No mass. KIDNEYS AND URETERS: Unremarkable. No hydronephrosis. No solid mass. VASCULATURE: Unremarkable. No aortic aneurysm. BOWEL: Unremarkable. No obstruction. No gross mural thickening. APPENDIX: Not identified. No secondary findings PERITONEUM: Unremarkable. No free fluid. No free air. LYMPH NODES: Unremarkable. No enlarged lymph nodes. BLADDER: Poorly distended REPRODUCTIVE: Unremarkable prostate BONES: No acute fracture. OTHER FINDINGS: Please note that upper left lateral abdominal wall abscess seen on prior examination could not be adequately evaluated on the basis of this examination due to limited field of view and patient body habitus. IMPRESSION: Limited examination. Unable to visualize left upper lateral abdominal wall/chest wall abscess. Left chest tube. Minimal left pleural effusion. No pneumothorax. Bilateral lower lobe subsegmental atelectasis. No additional abnormality.
--- NOTE | 2017-12-08 18:13 | CP.PCM.PN ---
Subjective - Date & Time of Evaluation Date of Evaluation: 12/08/17 Time of Evaluation: 07:20 - Subjective Subjective: clinically same Objective - Vital Signs/Intake and Output Vital Signs (last 24 hours): Temp Pulse Resp BP Pulse Ox 98.0 F 95 H 20 135/80 96 12/08/17 16:00 12/08/17 16:00 12/08/17 16:00 12/08/17 17:22 12/08/17 16:00 Intake and Output: 12/08/17 12/08/17 06:59 18:59 Intake Total 850 1270 Output Total 610 51 Balance 240 1219 - Medications Medications: Current Medications Acetaminophen (Tylenol 325mg Tab) 650 mg PO Q6 PRN PRN Reason: Fever >100.4 F Last Admin: 12/01/17 07:39 Dose: 650 mg Albuterol/Ipratropium (Duoneb 3 Mg/0.5 Mg (3 Ml) Ud) 3 ml INH RQ6 PRN PRN Reason: Shortness of Breath Last Admin: 12/08/17 13:31 Dose: 3 ml Aspirin (Ecotrin) 81 mg PO DAILY [facility] Last Admin: 12/08/17 09:56 Dose: 81 mg Clonidine HCl (Catapres) 0.1 mg PO BID [facility] Last Admin: 12/08/17 17:22 Dose: 0.1 mg Enoxaparin Sodium (Lovenox) 40 mg SC DAILY [facility] Last Admin: 12/08/17 09:55 Dose: Not Given Guaifenesin/Dextromethorphan (Robitussin Dm) 15 ml PO Q6H [facility] Last Admin: 12/08/17 17:23 Dose: 15 ml Vancomycin HCl 1,250 mg/ (Sodium Chloride) 250 mls @ 166.6 mls/hr IVPB Q12H [facility] Last Admin: 12/08/17 15:28 Dose: 166.6 mls/hr Metronidazole (Flagyl) 500 mg in 100 mls @ 100 mls/hr IVPB Q8 [facility] PRN Reason: Protocol Last Admin: 12/08/17 13:34 Dose: 100 mls/hr Piperacillin Sod/Tazobactam Sod (Zosyn 3.375 Gm Iv Premix) 3.375 gm in 50 mls @ 100 mls/hr IVPB Q8H [facility] PRN Reason: Protocol Last Admin: 12/08/17 13:48 Dose: 100 mls/hr Losartan Potassium (Cozaar) 50 mg PO DAILY [facility] Last Admin: 12/08/17 09:56 Dose: 50 mg Metoprolol Tartrate (Lopressor) 25 mg PO BID [facility] Last Admin: 12/08/17 17:22 Dose: 25 mg Morphine Sulfate (Morphine) 2 mg IVP Q4H PRN PRN Reason: Pain, moderate (4-7) Last Admin: 12/08/17 13:42 Dose: 2 mg Fluticasone/Salmeterol (Advair Diskus 250/50) 1 puff INH RQ12 [facility] Last Admin: 12/08/17 08:11 Dose: 1 puff Senna/Docusate Sodium (Senokot S 50 Mg-8.6 Mg) 1 tab PO BID [facility] Last Admin: 12/08/17 09:56 Dose: 1 tab - Labs Labs: 12/07/17 13:53 12/07/17 13:53 PT 14.2 SECONDS (9.7-12.2) H 11/29/17 14:41 INR 1.3 11/29/17 14:41 APTT 19 SECONDS (21-34) L 11/29/17 14:41 - Constitutional Appears: Well - Head Exam Head Exam: ATRAUMATIC, NORMAL INSPECTION, NORMOCEPHALIC - Eye Exam Eye Exam: EOMI, Normal appearance, PERRL Pupil Exam: NORMAL ACCOMODATION, PERRL - ENT Exam ENT Exam: Mucous Membranes Moist, Normal Exam - Neck Exam Neck Exam: Full ROM, Normal Inspection. absent: Lymphadenopathy - Respiratory Exam Respiratory Exam: Decreased Breath Sounds - Cardiovascular Exam Cardiovascular Exam: REGULAR RHYTHM, +S1, +S2 - GI/Abdominal Exam GI & Abdominal Exam: Soft, Diminished Bowel Sounds - Rectal Exam Rectal Exam: Deferred
--- NOTE | 2017-12-08 19:45 | PN ---
DATE: 12/08/2017 SUBJECTIVE: The patient underwent wound VAC replacement today with chest tube wound dressing. The patient denies any retrosternal chest pain. He is breathing comfortably. PHYSICAL EXAMINATION: VITAL SIGNS: Blood pressure 172/99, heart rate 92, temperature 98.9, respirations 22. HEENT: Pale conjunctivae. CHEST: Diminished breath sounds over the left base. HEART: S1 and S2, regular and distant. EXTREMITIES: 2+ pitting edema. ASSESSMENT: 1. Uncontrolled hypertension. 2. Status post left-sided chest tube placement for a large pleural effusion. 3. Status post incision and drainage for a left flank abdominal wall cellulitis. RECOMMENDATIONS: Continue Lopressor 25 mg once a day, Lovenox 40 mg subcutaneous once a day, aspirin 81 mg once a day, IV Flagyl 500 mg q.8 hours, vancomycin 1250 mg q.12 hours, Zosyn 3.375 gm intravenously q.8 hours will be started today. Continue Cozaar at 50 mg daily and start clonidine at 0.1 mg twice a day. Lazaro Omalley MD
--- NOTE | 2017-12-08 23:03 | CP.PCM.PN ---
Subjective - Date & Time of Evaluation Date of Evaluation: 12/08/17 Time of Evaluation: 23:03 - Subjective Subjective: AFEBRILE, S/P LEFT CHEST WALL WOUND VAC- REPLACEMENT. C/O CT EXIT SITE PAIN. PATIENT WENT FOR CT OF THE CHEST ABDOMEN/ PELVIS WITHOUT CONTRAST TODAY.- P-REPORT. PLEURAL FLUID 11/29/17 CONSISTANT WITH EXUDATE CULTURES -VE TO DATE. FUNGAL SMEAR -VE 11/29 AFB SMEAR-NO AFB SEEN 11/29/17 ON ABX Objective - Vital Signs/Intake and Output Vital Signs (last 24 hours): Temp Pulse Resp BP Pulse Ox 98.0 F 95 H 20 135/80 96 12/08/17 16:00 12/08/17 16:00 12/08/17 16:00 12/08/17 17:22 12/08/17 16:00 Intake and Output: 12/08/17 12/09/17 18:59 06:59 Intake Total 1270 Output Total 51 20 Balance 1219 -20 - Medications Medications: Current Medications Acetaminophen (Tylenol 325mg Tab) 650 mg PO Q6 PRN PRN Reason: Fever >100.4 F Last Admin: 12/01/17 07:39 Dose: 650 mg Albuterol/Ipratropium (Duoneb 3 Mg/0.5 Mg (3 Ml) Ud) 3 ml INH RQ6 PRN PRN Reason: Shortness of Breath Last Admin: 12/08/17 13:31 Dose: 3 ml Aspirin (Ecotrin) 81 mg PO DAILY [facility] Last Admin: 12/08/17 09:56 Dose: 81 mg Clonidine HCl (Catapres) 0.1 mg PO BID [facility] Last Admin: 12/08/17 17:22 Dose: 0.1 mg Enoxaparin Sodium (Lovenox) 40 mg SC DAILY [facility] Last Admin: 12/08/17 09:55 Dose: Not Given Guaifenesin/Dextromethorphan (Robitussin Dm) 15 ml PO Q6H [facility] Last Admin: 12/08/17 17:23 Dose: 15 ml Vancomycin HCl 1,250 mg/ (Sodium Chloride) 250 mls @ 166.6 mls/hr IVPB Q12H [facility] Last Admin: 12/08/17 15:28 Dose: 166.6 mls/hr Metronidazole (Flagyl) 500 mg in 100 mls @ 100 mls/hr IVPB Q8 [facility] PRN Reason: Protocol Last Admin: 12/08/17 21:00 Dose: 100 mls/hr Piperacillin Sod/Tazobactam Sod (Zosyn 3.375 Gm Iv Premix) 3.375 gm in 50 mls @ 100 mls/hr IVPB Q8H [facility] PRN Reason: Protocol Last Admin: 12/08/17 22:19 Dose: 100 mls/hr Losartan Potassium (Cozaar) 50 mg PO DAILY [facility] Last Admin: 12/08/17 09:56 Dose: 50 mg Metoprolol Tartrate (Lopressor) 25 mg PO BID [facility] Last Admin: 12/08/17 17:22 Dose: 25 mg Morphine Sulfate (Morphine) 2 mg IVP Q4H PRN PRN Reason: Pain, moderate (4-7) Last Admin: 12/08/17 22:13 Dose: 2 mg Fluticasone/Salmeterol (Advair Diskus 250/50) 1 puff INH RQ12 [facility] Last Admin: 12/08/17 20:15 Dose: 1 puff Senna/Docusate Sodium (Senokot S 50 Mg-8.6 Mg) 1 tab PO BID [facility] Last Admin: 12/08/17 18:12 Dose: 1 tab - Labs Labs: 12/07/17 13:53 12/07/17 13:53 PT 14.2 SECONDS (9.7-12.2) H 11/29/17 14:41 INR 1.3 11/29/17 14:41 APTT 19 SECONDS (21-34) L 11/29/17 14:41 - Constitutional Appears: No Acute Distress - Head Exam Head Exam: NORMAL INSPECTION - Eye Exam Eye Exam: EOMI, PERRL. absent: Scleral icterus - ENT Exam ENT Exam: Normal Oropharynx - Neck Exam Neck Exam: Normal Inspection - Respiratory Exam Respiratory Exam: Decreased Breath Sounds (LT CHEST. +CT IN PLACE DRAINING SERSANGUINOUS DRAINAGE.) - Cardiovascular Exam Cardiovascular Exam: REGULAR RHYTHM, +S1, +S2 - GI/Abdominal Exam GI & Abdominal Exam: Soft, Normal Bowel Sounds (LEFT CT +WOUND VAC ) - Extremities Exam Extremities Exam: Full ROM. absent: Calf Tenderness - Neurological Exam Neurological Exam: Awake, CN II-XII Intact, Oriented x3 - Psychiatric Exam Psychiatric exam: Normal Mood - Skin Skin Exam: Normal Color, Warm Assessment and Plan (1) Pneumonia Assessment & Plan: PATIENT ON iv ANTIBIOTICS. lEFT CHEST TUBE WOUND CARE PER SURGERY/CT SURGEON Status: Acute (2) Left upper quadrant abdominal swelling Assessment & Plan: CONTINUE IV ZOSYN 3.375 EVERY 8 HOURLY 11/15/17 CONTINUE IV VANCOMYCIN 1250 MG iv EVERY 12 HOURLY FOR mrsa STREP COVERAGE . ON IV FLAGYL 500MG IV Q8HRLY FOR ANAEROBIC COVERAGE. 12/01/17 . F/U CULTURES AND SPECIAL STAINS-P PER SURGERY WOUND VAC IN PLACE. Status: Acute (3) Bronchitis Status: Acute (4) Morbid obesity Status: Acute
[2017-12-09] MEDS: guaiFENesin DM 100 mg-10 mg/5 ml UD PO SCH ×4 (05:36→23:47)
[2017-12-09] MEDS: Piperacill/Tazo 3.375gm in Dex 3.375 GM/50 ML BAG IVPB SCH ×3 (06:11→22:47)
--- NOTE | 2017-12-09 06:27 | CP.PCM.PN ---
Subjective - Date & Time of Evaluation Date of Evaluation: 12/09/17 Time of Evaluation: 06:25 - Subjective Subjective: General surgery: Dr New Pt S&E. QUINCY. Had wound vac changed yesterday. c/o pain at insertion site. denies f/c, sob, n/v. Plans for vac changes bedside M W F moving forward, will get wound care involved Objective - Vital Signs/Intake and Output Vital Signs (last 24 hours): Temp Pulse Resp BP Pulse Ox 98.5 F 95 H 20 116/72 97 12/08/17 23:45 12/08/17 23:45 12/08/17 23:45 12/08/17 23:45 12/08/17 23:45 Intake and Output: 12/08/17 12/09/17 18:59 06:59 Intake Total 1270 Output Total 51 20 Balance 1219 -20 - Medications Medications: Current Medications Acetaminophen (Tylenol 325mg Tab) 650 mg PO Q6 PRN PRN Reason: Fever >100.4 F Last Admin: 12/01/17 07:39 Dose: 650 mg Albuterol/Ipratropium (Duoneb 3 Mg/0.5 Mg (3 Ml) Ud) 3 ml INH RQ6 PRN PRN Reason: Shortness of Breath Last Admin: 12/08/17 13:31 Dose: 3 ml Aspirin (Ecotrin) 81 mg PO DAILY [facility] Last Admin: 12/08/17 09:56 Dose: 81 mg Clonidine HCl (Catapres) 0.1 mg PO BID [facility] Last Admin: 12/08/17 17:22 Dose: 0.1 mg Enoxaparin Sodium (Lovenox) 40 mg SC DAILY [facility] Last Admin: 12/08/17 09:55 Dose: Not Given Guaifenesin/Dextromethorphan (Robitussin Dm) 15 ml PO Q6H [facility] Last Admin: 12/09/17 05:36 Dose: 15 ml Vancomycin HCl 1,250 mg/ (Sodium Chloride) 250 mls @ 166.6 mls/hr IVPB Q12H [facility] Last Admin: 12/09/17 02:18 Dose: 166.6 mls/hr Metronidazole (Flagyl) 500 mg in 100 mls @ 100 mls/hr IVPB Q8 [facility] PRN Reason: Protocol Last Admin: 12/08/17 21:00 Dose: 100 mls/hr Piperacillin Sod/Tazobactam Sod (Zosyn 3.375 Gm Iv Premix) 3.375 gm in 50 mls @ 100 mls/hr IVPB Q8H [facility] PRN Reason: Protocol Last Admin: 12/09/17 06:11 Dose: 100 mls/hr Losartan Potassium (Cozaar) 50 mg PO DAILY [facility] Last Admin: 12/08/17 09:56 Dose: 50 mg Metoprolol Tartrate (Lopressor) 25 mg PO BID [facility] Last Admin: 12/08/17 17:22 Dose: 25 mg Morphine Sulfate (Morphine) 2 mg IVP Q4H PRN PRN Reason: Pain, moderate (4-7) Last Admin: 12/08/17 22:13 Dose: 2 mg Fluticasone/Salmeterol (Advair Diskus 250/50) 1 puff INH RQ12 [facility] Last Admin: 12/08/17 20:15 Dose: 1 puff Senna/Docusate Sodium (Senokot S 50 Mg-8.6 Mg) 1 tab PO BID [facility] Last Admin: 12/08/17 18:12 Dose: 1 tab - Labs Labs: 12/07/17 13:53 12/07/17 13:53 PT 14.2 SECONDS (9.7-12.2) H 11/29/17 14:41 INR 1.3 11/29/17 14:41 APTT 19 SECONDS (21-34) L 11/29/17 14:41 - Constitutional Appears: Non-toxic, No Acute Distress - Respiratory Exam Respiratory Exam: absent: Accessory Muscle Use, Respiratory Distress - Cardiovascular Exam Cardiovascular Exam: REGULAR RHYTHM. absent: Tachycardia - GI/Abdominal Exam GI & Abdominal Exam: Soft. absent: Distended, Tenderness - Neurological Exam Neurological Exam: Alert, Awake Assessment and Plan - Assessment and Plan (Free Text) Assessment: 42F with abscess of left lateral abdominal/chest wall: s/p debridement and thoracostomy tube Plan: cont tube to water seal vac changes bedside MWF cont abx per ID d/w Dr Virgen Ragland, PGY3
[2017-12-09 07:00] LABS: BLOOD UREA NITROGEN 8 mg/dL (9-20); CALCIUM 8.1 mg/dl (8.6-10.4); GFR AFRICAN-AMERICAN > 60; GFR NON-AFRICAN AMERICAN > 60
[2017-12-09 07:03] LABS: BASO # 0.1 K/uL (0.0-0.2); BASO % 1.1 % (0.0-2.0); EOS # 0.5 K/uL (0.0-0.7); EOS % 4.8 % (0.0-4.0); HEMOGLOBIN 10.1 g/dL (12.0-18.0); LYMPH # 1.3 K/uL (1.0-4.3); LYMPH % 11.5 % (20.0-40.0); MEAN CORPUSCULAR HEMOGLOBIN 26.5 pg (27.0-31.0); MEAN CORPUSCULAR HGB CONC 32.8 g/dL (33.0-37.0); MEAN PLATELET VOLUME 7.2 fL (7.2-11.7); MONO % 8.9 % (0.0-10.0); NEUT # 8.4 K/uL (1.8-7.0); NEUT % 73.7 % (50.0-75.0); NRBC % 0.1 % (0.0-2.0); RBC 3.8 Mil/uL (4.40-5.90); RED CELL DISTRIBUTION WIDTH 16.2 % (11.5-14.5); WHITE BLOOD COUNT 11.4 K/uL (4.8-10.8)
[2017-12-09] MEDS: Albuterol-Ipratrop 3 mg / 0.5 (3 ml) UD INH PRN (07:40)
[2017-12-09] MEDS: Fluticasone-Salmeterol 250-50mcg Diskus INH SCH ×2 (08:00→19:48)
[2017-12-09] MEDS: Enoxaparin 40 mg Syringe SC SCH (09:59)
[2017-12-09] MEDS: Docusate-Senna 50 mg-8.6 mg Tab PO SCH ×2 (10:05→18:04)
--- NOTE | 2017-12-09 13:32 | CP.PCM.PN ---
Subjective - Date & Time of Evaluation Date of Evaluation: 12/09/17 Time of Evaluation: 07:10 - Subjective Subjective: clinically same Objective - Vital Signs/Intake and Output Vital Signs (last 24 hours): Temp Pulse Resp BP Pulse Ox 97.6 F 89 20 123/66 97 12/09/17 07:51 12/09/17 07:51 12/09/17 07:51 12/09/17 09:57 12/09/17 07:51 Intake and Output: 12/09/17 12/09/17 06:59 18:59 Intake Total 640 Output Total 20 0 Balance -20 640 - Medications Medications: Current Medications Acetaminophen (Tylenol 325mg Tab) 650 mg PO Q6 PRN PRN Reason: Fever >100.4 F Last Admin: 12/09/17 10:06 Dose: 650 mg Albuterol/Ipratropium (Duoneb 3 Mg/0.5 Mg (3 Ml) Ud) 3 ml INH RQ6 PRN PRN Reason: Shortness of Breath Last Admin: 12/09/17 07:40 Dose: 3 ml Aspirin (Ecotrin) 81 mg PO DAILY [facility] Last Admin: 12/09/17 09:59 Dose: 81 mg Clonidine HCl (Catapres) 0.1 mg PO BID [facility] Last Admin: 12/09/17 09:59 Dose: 0.1 mg Enoxaparin Sodium (Lovenox) 40 mg SC DAILY [facility] Last Admin: 12/09/17 09:59 Dose: 40 mg Guaifenesin/Dextromethorphan (Robitussin Dm) 15 ml PO Q6H [facility] Last Admin: 12/09/17 12:39 Dose: 15 ml Vancomycin HCl 1,250 mg/ (Sodium Chloride) 250 mls @ 166.6 mls/hr IVPB Q12H [facility] Last Admin: 12/09/17 02:18 Dose: 166.6 mls/hr Metronidazole (Flagyl) 500 mg in 100 mls @ 100 mls/hr IVPB Q8 [facility] PRN Reason: Protocol Last Admin: 12/08/17 21:00 Dose: 100 mls/hr Piperacillin Sod/Tazobactam Sod (Zosyn 3.375 Gm Iv Premix) 3.375 gm in 50 mls @ 100 mls/hr IVPB Q8H [facility] PRN Reason: Protocol Last Admin: 12/09/17 06:11 Dose: 100 mls/hr Losartan Potassium (Cozaar) 50 mg PO DAILY [facility] Last Admin: 12/09/17 09:59 Dose: 50 mg Metoprolol Tartrate (Lopressor) 25 mg PO BID [facility] Last Admin: 12/09/17 09:57 Dose: 25 mg Morphine Sulfate (Morphine) 2 mg IVP Q4H PRN PRN Reason: Pain, moderate (4-7) Last Admin: 12/08/17 22:13 Dose: 2 mg Fluticasone/Salmeterol (Advair Diskus 250/50) 1 puff INH RQ12 [facility] Last Admin: 12/09/17 08:00 Dose: 1 puff Senna/Docusate Sodium (Senokot S 50 Mg-8.6 Mg) 1 tab PO BID [facility] Last Admin: 12/09/17 10:05 Dose: 1 tab - Labs Labs: 12/09/17 06:30 12/09/17 06:30 PT 14.2 SECONDS (9.7-12.2) H 11/29/17 14:41 INR 1.3 11/29/17 14:41 APTT 19 SECONDS (21-34) L 11/29/17 14:41 - Constitutional Appears: Well - Head Exam Head Exam: ATRAUMATIC, NORMAL INSPECTION, NORMOCEPHALIC - Eye Exam Eye Exam: EOMI, Normal appearance, PERRL Pupil Exam: NORMAL ACCOMODATION, PERRL - ENT Exam ENT Exam: Mucous Membranes Moist, Normal Exam - Neck Exam Neck Exam: Full ROM, Normal Inspection. absent: Lymphadenopathy - Respiratory Exam Respiratory Exam: Decreased Breath Sounds - Cardiovascular Exam Cardiovascular Exam: REGULAR RHYTHM, +S1, +S2 - GI/Abdominal Exam GI & Abdominal Exam: Soft, Diminished Bowel Sounds - Rectal Exam Rectal Exam: Deferred Assessment and Plan - Assessment and Plan (Free Text) Plan: status Post wound VAC yesterday Continue on Lovenox and acetaminophen Continue oral vancomycin Flagyl and Zosyn ID consult Pulmonary consult CBC CMP
[2017-12-09] MEDS: metroNIDAZOLE IV 500 mg/100 ml 500 MG/100 ML BAG IVPB SCH ×2 (14:22→22:14)
--- NOTE | 2017-12-09 20:00 | CP.PCM.PN ---
Subjective - Date & Time of Evaluation Date of Evaluation: 12/09/17 Time of Evaluation: 20:00 - Subjective Subjective: AFEBRILE, S/P LEFT CHEST WALL WOUND VAC- REPLACEMENT 12/08/17 C/O PAIN AT INSERTION SITE. DENIES SOB DENIES COUGH. SURGERY TO CHANGE VAC MWF PER NOTE PATH REPORTS REVIEWED; 12/01/17 ABDOMINAL WALL -VE FOR MALIGNANCY. OLD HGE. 12/04/17; DEBRIDED TISSUE LEFT ABDOMINAL WALL +VE FRAGMENTSOF NECROTIC NON VIABLE TISSUE. 12/06/17 LT. CHEST WALL SOFT TISSUE-CHRONIC INFLAMATION/HGE/NECROSIS. 12/01/17- PLEURAL FLUID CYTOLOGY -VE MALIGNANT CELLS. Objective - Vital Signs/Intake and Output Vital Signs (last 24 hours): Temp Pulse Resp BP Pulse Ox 97.5 F L 81 20 123/66 98 12/09/17 15:00 12/09/17 15:00 12/09/17 15:00 12/09/17 18:00 12/09/17 15:00 Intake and Output: 12/09/17 12/10/17 18:59 06:59 Intake Total 1540 Output Total 0 Balance 1540 - Medications Medications: Current Medications Acetaminophen (Tylenol 325mg Tab) 650 mg PO Q6 PRN PRN Reason: Fever >100.4 F Last Admin: 12/09/17 10:06 Dose: 650 mg Albuterol/Ipratropium (Duoneb 3 Mg/0.5 Mg (3 Ml) Ud) 3 ml INH RQ6 PRN PRN Reason: Shortness of Breath Last Admin: 12/09/17 07:40 Dose: 3 ml Aspirin (Ecotrin) 81 mg PO DAILY [facility] Last Admin: 12/09/17 09:59 Dose: 81 mg Clonidine HCl (Catapres) 0.1 mg PO BID [facility] Last Admin: 12/09/17 18:01 Dose: 0.1 mg Enoxaparin Sodium (Lovenox) 40 mg SC DAILY [facility] Last Admin: 12/09/17 09:59 Dose: 40 mg Guaifenesin/Dextromethorphan (Robitussin Dm) 15 ml PO Q6H [facility] Last Admin: 12/09/17 18:01 Dose: 15 ml Vancomycin HCl 1,250 mg/ (Sodium Chloride) 250 mls @ 166.6 mls/hr IVPB Q12H [facility] Last Admin: 12/09/17 14:23 Dose: 166.6 mls/hr Metronidazole (Flagyl) 500 mg in 100 mls @ 100 mls/hr IVPB Q8 [facility] PRN Reason: Protocol Last Admin: 12/09/17 14:22 Dose: 100 mls/hr Piperacillin Sod/Tazobactam Sod (Zosyn 3.375 Gm Iv Premix) 3.375 gm in 50 mls @ 100 mls/hr IVPB Q8H [facility] PRN Reason: Protocol Last Admin: 12/09/17 14:21 Dose: 100 mls/hr Losartan Potassium (Cozaar) 50 mg PO DAILY [facility] Last Admin: 12/09/17 09:59 Dose: 50 mg Metoprolol Tartrate (Lopressor) 25 mg PO BID [facility] Last Admin: 12/09/17 18:00 Dose: 25 mg Morphine Sulfate (Morphine) 2 mg IVP Q4H PRN PRN Reason: Pain, moderate (4-7) Last Admin: 12/08/17 22:13 Dose: 2 mg Fluticasone/Salmeterol (Advair Diskus 250/50) 1 puff INH RQ12 [facility] Last Admin: 12/09/17 19:48 Dose: 1 puff Senna/Docusate Sodium (Senokot S 50 Mg-8.6 Mg) 1 tab PO BID [facility] Last Admin: 12/09/17 18:04 Dose: 1 tab - Labs Labs: 12/09/17 06:30 12/09/17 06:30 PT 14.2 SECONDS (9.7-12.2) H 11/29/17 14:41 INR 1.3 11/29/17 14:41 APTT 19 SECONDS (21-34) L 11/29/17 14:41 - Constitutional Appears: No Acute Distress - Eye Exam Eye Exam: EOMI, PERRL - ENT Exam ENT Exam: Normal Oropharynx - Respiratory Exam Respiratory Exam: Decreased Breath Sounds (LT SIDE .), Rhonchi (+VE FEW RHONCHI. ) - Cardiovascular Exam Cardiovascular Exam: REGULAR RHYTHM, +S1, +S2 - GI/Abdominal Exam GI & Abdominal Exam: Soft, Normal Bowel Sounds Additional comments: MORBIDLY OBESE. SKIN FOLDS. LT CHESTWALL TUBE +VE WOUND VAC +VE DRAINAGE BROWNISH OLD BLOOD LT CT-TUBE +VE CONNECTED TO WATER SEAL - Extremities Exam Extremities Exam: Normal Capillary Refill, Pedal Edema. absent: Calf Tenderness - Neurological Exam Neurological Exam: Awake, CN II-XII Intact, Normal Gait, Oriented x3, Reflexes Normal - Psychiatric Exam Psychiatric exam: Normal Mood - Skin Skin Exam: Normal Color, Warm Assessment and Plan (1) Pneumonia Assessment & Plan: PATIENT ON iv ANTIBIOTICS. lEFT CHEST TUBE WOUND CARE PER SURGERY/CT SURGEON Status: Acute (2) Left upper quadrant abdominal swelling Assessment & Plan: Assessment & Plan: ETIOLOGY OF FLUID COLLECTION LEFT LUNG AND LEFT ABDOMINAL WALL NOT CLEAR.? OLD HGE,TRAUMA PT PLEURAL FLUID WAS EXUDATIVE W-VE CULTURES SO FAR. CONTINUE IV ZOSYN 3.375 EVERY 8 HOURLY 11/15/17 CONTINUE IV VANCOMYCIN 1250 MG iv EVERY 12 HOURLY FOR mrsa STREP COVERAGE . ON IV FLAGYL 500MG IV Q8HRLY FOR ANAEROBIC COVERAGE. 12/01/17 . F/U CULTURES AND SPECIAL STAINS-P PER SURGERY WOUND VAC IN PLACE. Status: Acute (3) Bronchitis Status: Acute (4) Morbid obesity Status: Acute
[2017-12-09] MEDS: Morphine 4 MG/ML VIAL IVP PRN (22:10)
[2017-12-10] MEDS: Morphine 4 MG/ML VIAL IVP PRN ×4 (03:44→22:11)
[2017-12-10] MEDS: metroNIDAZOLE IV 500 mg/100 ml 500 MG/100 ML BAG IVPB SCH ×2 (06:00→13:57)
[2017-12-10] MEDS: guaiFENesin DM 100 mg-10 mg/5 ml UD PO SCH ×3 (06:03→17:56)
[2017-12-10] MEDS: Piperacill/Tazo 3.375gm in Dex 3.375 GM/50 ML BAG IVPB SCH ×2 (06:04→13:58)
[2017-12-10] MEDS: Fluticasone-Salmeterol 250-50mcg Diskus INH SCH ×2 (07:45→20:28)
[2017-12-10] MEDS: Albuterol-Ipratrop 3 mg / 0.5 (3 ml) UD INH PRN (07:45)
[2017-12-10] MEDS: Enoxaparin 40 mg Syringe SC SCH (10:10)
[2017-12-10] MEDS: Docusate-Senna 50 mg-8.6 mg Tab PO SCH ×2 (10:10→17:56)
--- NOTE | 2017-12-10 18:19 | CP.PCM.PN ---
Subjective - Date & Time of Evaluation Date of Evaluation: 12/10/17 Time of Evaluation: 07:20 - Subjective Subjective: clinically same Objective - Vital Signs/Intake and Output Vital Signs (last 24 hours): Temp Pulse Resp BP Pulse Ox 98.5 F 80 20 110/74 98 12/10/17 15:00 12/10/17 15:00 12/10/17 15:00 12/10/17 17:56 12/10/17 15:00 Intake and Output: 12/10/17 12/10/17 06:59 18:59 Intake Total 1400 Output Total 650 Balance 750 - Medications Medications: Current Medications Acetaminophen (Tylenol 325mg Tab) 650 mg PO Q6 PRN PRN Reason: Fever >100.4 F Last Admin: 12/09/17 10:06 Dose: 650 mg Albuterol/Ipratropium (Duoneb 3 Mg/0.5 Mg (3 Ml) Ud) 3 ml INH RQ6 PRN PRN Reason: Shortness of Breath Last Admin: 12/10/17 07:45 Dose: 3 ml Aspirin (Ecotrin) 81 mg PO DAILY [facility] Last Admin: 12/10/17 10:10 Dose: 81 mg Clonidine HCl (Catapres) 0.1 mg PO BID [facility] Last Admin: 12/10/17 17:55 Dose: 0.1 mg Enoxaparin Sodium (Lovenox) 40 mg SC DAILY [facility] Last Admin: 12/10/17 10:10 Dose: 40 mg Furosemide (Lasix) 40 mg PO DAILY [facility] Last Admin: 12/10/17 11:24 Dose: 40 mg Guaifenesin/Dextromethorphan (Robitussin Dm) 15 ml PO Q6H [facility] Last Admin: 12/10/17 17:56 Dose: 15 ml Vancomycin HCl 1,250 mg/ (Sodium Chloride) 250 mls @ 166.6 mls/hr IVPB Q12H [facility] Last Admin: 12/10/17 13:59 Dose: 166.6 mls/hr Piperacillin Sod/Tazobactam Sod (Zosyn 3.375 Gm Iv Premix) 3.375 gm in 50 mls @ 100 mls/hr IVPB Q8H [facility] PRN Reason: Protocol Last Admin: 12/10/17 13:58 Dose: 100 mls/hr Losartan Potassium (Cozaar) 50 mg PO DAILY [facility] Last Admin: 12/10/17 10:10 Dose: 50 mg Metoprolol Tartrate (Lopressor) 25 mg PO BID [facility] Last Admin: 12/10/17 17:56 Dose: 25 mg Morphine Sulfate (Morphine) 2 mg IVP Q4H PRN PRN Reason: Pain, moderate (4-7) Last Admin: 12/10/17 18:03 Dose: 2 mg Fluticasone/Salmeterol (Advair Diskus 250/50) 1 puff INH RQ12 [facility] Last Admin: 12/10/17 07:45 Dose: 1 puff Senna/Docusate Sodium (Senokot S 50 Mg-8.6 Mg) 1 tab PO BID [facility] Last Admin: 12/10/17 17:56 Dose: 1 tab - Labs Labs: 12/09/17 06:30 12/09/17 06:30 PT 14.2 SECONDS (9.7-12.2) H 11/29/17 14:41 INR 1.3 11/29/17 14:41 APTT 19 SECONDS (21-34) L 11/29/17 14:41 - Constitutional Appears: Well - Head Exam Head Exam: ATRAUMATIC, NORMAL INSPECTION, NORMOCEPHALIC - Eye Exam Eye Exam: EOMI, Normal appearance, PERRL Pupil Exam: NORMAL ACCOMODATION, PERRL - ENT Exam ENT Exam: Mucous Membranes Moist, Normal Exam - Neck Exam Neck Exam: Full ROM, Normal Inspection. absent: Lymphadenopathy - Respiratory Exam Respiratory Exam: Decreased Breath Sounds - Cardiovascular Exam Cardiovascular Exam: Bradycardia, +S1, +S2 - GI/Abdominal Exam GI & Abdominal Exam: Soft, Diminished Bowel Sounds - Rectal Exam Rectal Exam: Deferred
--- NOTE | 2017-12-10 19:48 | CP.PCM.PN ---
<Sorin Arredondo - Last Filed: 12/10/17 19:44> Subjective - Date & Time of Evaluation Date of Evaluation: 12/10/17 Time of Evaluation: 09:40 - Subjective Subjective: Surgery Progress note. Dr. New Pt seen and examined at bedside. No acute events overnight. No F/C. No new complaints. Chest tube to waterseal. Left abd/chest wall wound vac in place, no air leaks. Objective - Vital Signs/Intake and Output Vital Signs (last 24 hours): Temp Pulse Resp BP Pulse Ox 98.5 F 80 20 110/74 98 12/10/17 15:00 12/10/17 15:00 12/10/17 15:00 12/10/17 17:56 12/10/17 15:00 Intake and Output: 12/10/17 12/11/17 18:59 06:59 Intake Total 1400 Output Total 650 Balance 750 - Medications Medications: Current Medications Acetaminophen (Tylenol 325mg Tab) 650 mg PO Q6 PRN PRN Reason: Fever >100.4 F Last Admin: 12/09/17 10:06 Dose: 650 mg Albuterol/Ipratropium (Duoneb 3 Mg/0.5 Mg (3 Ml) Ud) 3 ml INH RQ6 PRN PRN Reason: Shortness of Breath Last Admin: 12/10/17 07:45 Dose: 3 ml Aspirin (Ecotrin) 81 mg PO DAILY [facility] Last Admin: 12/10/17 10:10 Dose: 81 mg Clonidine HCl (Catapres) 0.1 mg PO BID [facility] Last Admin: 12/10/17 17:55 Dose: 0.1 mg Enoxaparin Sodium (Lovenox) 40 mg SC DAILY [facility] Last Admin: 12/10/17 10:10 Dose: 40 mg Furosemide (Lasix) 40 mg PO DAILY [facility] Last Admin: 12/10/17 11:24 Dose: 40 mg Guaifenesin/Dextromethorphan (Robitussin Dm) 15 ml PO Q6H [facility] Last Admin: 12/10/17 17:56 Dose: 15 ml Vancomycin HCl 1,250 mg/ (Sodium Chloride) 250 mls @ 166.6 mls/hr IVPB Q12H [facility] Last Admin: 12/10/17 13:59 Dose: 166.6 mls/hr Piperacillin Sod/Tazobactam Sod (Zosyn 3.375 Gm Iv Premix) 3.375 gm in 50 mls @ 100 mls/hr IVPB Q8H [facility] PRN Reason: Protocol Last Admin: 12/10/17 13:58 Dose: 100 mls/hr Losartan Potassium (Cozaar) 50 mg PO DAILY [facility] Last Admin: 12/10/17 10:10 Dose: 50 mg Metoprolol Tartrate (Lopressor) 25 mg PO BID [facility] Last Admin: 12/10/17 17:56 Dose: 25 mg Morphine Sulfate (Morphine) 2 mg IVP Q4H PRN PRN Reason: Pain, moderate (4-7) Last Admin: 12/10/17 18:03 Dose: 2 mg Fluticasone/Salmeterol (Advair Diskus 250/50) 1 puff INH RQ12 [facility] Last Admin: 12/10/17 07:45 Dose: 1 puff Senna/Docusate Sodium (Senokot S 50 Mg-8.6 Mg) 1 tab PO BID [facility] Last Admin: 12/10/17 17:56 Dose: 1 tab - Labs Labs: 12/09/17 06:30 12/09/17 06:30 PT 14.2 SECONDS (9.7-12.2) H 11/29/17 14:41 INR 1.3 11/29/17 14:41 APTT 19 SECONDS (21-34) L 11/29/17 14:41 - Constitutional Appears: Well, Non-toxic, No Acute Distress - Head Exam Head Exam: ATRAUMATIC, NORMAL INSPECTION, NORMOCEPHALIC - Eye Exam Eye Exam: EOMI, Normal appearance - ENT Exam ENT Exam: Mucous Membranes Moist - Respiratory Exam Respiratory Exam: NORMAL BREATHING PATTERN. absent: Accessory Muscle Use, Respiratory Distress Additional comments: Left sided chest tube in place to water seal. Tidling well, no air leaks. - Cardiovascular Exam Cardiovascular Exam: RRR. absent: JVD - GI/Abdominal Exam GI & Abdominal Exam: Soft. absent: Distended, Firm, Guarding, Rigid, Tenderness , Rebound Additional comments: Left sided chest/abdominal wall wound vac in place, no leaks. - Extremities Exam Extremities Exam: Normal Inspection. absent: Calf Tenderness - Neurological Exam Neurological Exam: Alert, Awake, Oriented x3 - Skin Skin Exam: Dry, Intact, Normal Color, Warm Assessment and Plan - Assessment and Plan (Free Text) Assessment: 42yo M with abscess of left chest/abdomen wall; S/P debridement and chest tube placement Plan: - Continue Chest tube to water seal - Wound vac changes MWF at bedside - Continue Abx - Pain management - Strict I&Os Further recs as per Dr. Virgen Arredondo PGY1 surgery pager: [phone] <Andres New - Last Filed: 12/11/17 21:29> Objective - Vital Signs/Intake and Output Vital Signs (last 24 hours): Temp Pulse Resp BP Pulse Ox 97.4 F L 93 H 20 112/77 96 12/11/17 16:00 12/11/17 16:00 12/11/17 16:00 12/11/17 18:01 12/11/17 16:00 Intake and Output: 12/11/17 12/12/17 18:59 06:59 Intake Total 1500 Output Total 1710 Balance -210 - Medications Medications: Current Medications Acetaminophen (Tylenol 325mg Tab) 650 mg PO Q6 PRN PRN Reason: Fever >100.4 F Last Admin: 12/09/17 10:06 Dose: 650 mg Albuterol/Ipratropium (Duoneb 3 Mg/0.5 Mg (3 Ml) Ud) 3 ml INH RQ6 PRN PRN Reason: Shortness of Breath Last Admin: 12/11/17 19:46 Dose: 3 ml Aspirin (Ecotrin) 81 mg PO DAILY [facility] Last Admin: 12/11/17 09:29 Dose: 81 mg Clonidine HCl (Catapres) 0.1 mg PO BID [facility] Last Admin: 12/11/17 18:01 Dose: 0.1 mg Enoxaparin Sodium (Lovenox) 40 mg SC DAILY [facility] Last Admin: 12/11/17 09:30 Dose: 40 mg Furosemide (Lasix) 40 mg PO DAILY [facility] Last Admin: 12/11/17 09:28 Dose: 40 mg Guaifenesin/Dextromethorphan (Robitussin Dm) 15 ml PO Q6H [facility] Last Admin: 12/11/17 18:02 Dose: 15 ml Vancomycin HCl 1,250 mg/ (Sodium Chloride) 250 mls @ 166.6 mls/hr IVPB Q12H [facility] Last Admin: 12/11/17 15:04 Dose: 166.6 mls/hr Piperacillin Sod/Tazobactam Sod (Zosyn 3.375 Gm Iv Premix) 3.375 gm in 50 mls @ 100 mls/hr IVPB Q8H [facility] PRN Reason: Protocol Last Admin: 12/11/17 15:18 Dose: 100 mls/hr Metronidazole (Flagyl) 500 mg in 100 mls @ 100 mls/hr IVPB Q8 [facility] PRN Reason: Protocol Last Admin: 12/11/17 21:23 Dose: 100 mls/hr Losartan Potassium (Cozaar) 50 mg PO DAILY [facility] Last Admin: 12/11/17 09:27 Dose: 50 mg Metoprolol Tartrate (Lopressor) 25 mg PO BID [facility] Last Admin: 12/11/17 18:01 Dose: 25 mg Fluticasone/Salmeterol (Advair Diskus 250/50) 1 puff INH RQ12 [facility] Last Admin: 12/11/17 19:46 Dose: 1 puff Senna/Docusate Sodium (Senokot S 50 Mg-8.6 Mg) 1 tab PO BID [facility] Last Admin: 12/11/17 18:01 Dose: 1 tab - Labs Labs: 12/11/17 07:24 12/11/17 07:24 PT 14.2 SECONDS (9.7-12.2) H 11/29/17 14:41 INR 1.3 11/29/17 14:41 APTT 19 SECONDS (21-34) L 11/29/17 14:41 Attending/Attestation - Attestation I have personally seen and examined this patient.: Yes I have fully participated in the care of the patient.: Yes I have reviewed all pertinent clinical information, including history, physical exam and plan: Yes Notes (Text): Pt was seen and examine at bedside Agree with above note and assessment Pt is improving clinically IV antibiotics Plan d.w pt in detail
--- NOTE | 2017-12-10 21:20 | PN ---
DATE: SUBJECTIVE: The patient denies chest pain. He is anxious for planned operating room schedule tomorrow. PHYSICAL EXAMINATION: VITAL SIGNS: Blood pressure 110/77, heart rate 96, temperature 98.1, respirations 20. HEENT: Normocephalic. CHEST: Diminished breath sounds over the left base. HEART: S1 and S2, regular. EXTREMITIES: 2+ pitting edema. LABORATORY DATA: Yesterday's SMA-7 is within normal limits except for BUN of 8. Calcium is below normal at 8.1. Yesterday's hemoglobin and hematocrit 10.1 and 30.8, white count 11.4, platelet count 466,000. Yesterday's chest, abdomen and pelvis CT scan was limited in examination. Unable to visualize the left upper lateral abdominal wall, chest wall abscess. Left chest tube. Minimal left pleural effusion. No pneumothorax. Bilateral lower lobe subsegmental atelectases. ASSESSMENT: 1. Status post left chest tube placement for left pleural effusion. 2. Status post incision and drainage of left flank abdominal wall abscess. 3. Morbid obesity. 4. Sleep apnea. The patient is scheduled for VAC change tomorrow. RECOMMENDATIONS: Continue current clonidine, Cozaar, aspirin, Lasix, Lopressor, IV vancomycin and IV Zosyn, Lovenox in a.m. Lazaro Omalley MD
--- NOTE | 2017-12-10 22:15 | OP ---
PROCEDURE DATE: 12/08/2017 SURGEON: Andres New MD ASSISTANTS: Yahir Ragland, PGY-3 resident and Sorin Arredondo, PGY-1 resident. PREOPERATIVE DIAGNOSIS: Left flank and chest wound, status post multiple debridement and wound VAC change. POSTOPERATIVE DIAGNOSIS: Left flank and chest wound, status post multiple debridement and wound VAC change. PROCEDURE DONE: Negative pressure wound VAC therapy of 15 x 10 x 5 cm wound and wound VAC change. ANESTHESIA: Local anesthesia plus sedation. ESTIMATED BLOOD LOSS: Around 5 mL. DRAINS: The wound VAC was placed as a drain. PATHOLOGY: None. COMPLICATIONS: None. INTRAOPERATIVE FINDINGS: The patient had a red granulation tissue with almost half of the cavity was closed due to the wound VAC and small amount of sponge was placed. DESCRIPTION OF PROCEDURE: On intraoperative steps, this is a 42-year-old male who was diagnosed with left flank and chest wall soft tissue infection with collection, and the patient underwent excision of the part of the abdominal and chest wall with multiple afterward debridement and wound VAC changes and this one was the last wound VAC change. The patient was brought to the OR, placed supine on the operating table. After induction of anesthesia, the wound was prepped and draped. The old sponge was taken out. Almost half of the cavity was closed due to the wound VAC and very small amount of sponge was placed and wound VAC was recreated. There was no need for debridement, and the wound VAC was connected to the suction and the patient was sent back to the floor for further treatment. Count of instrument and gauze was correct. There was no apparent complication. Andres New MD LARRY
[2017-12-11] MEDS: guaiFENesin DM 100 mg-10 mg/5 ml UD PO SCH ×5 (00:26→23:40)
[2017-12-11] MEDS: Morphine 4 MG/ML VIAL IVP PRN ×4 (02:10→22:52)
[2017-12-11] MEDS: metroNIDAZOLE IV 500 mg/100 ml 500 MG/100 ML BAG IVPB SCH ×3 (06:24→21:23)
[2017-12-11] MEDS: Piperacill/Tazo 3.375gm in Dex 3.375 GM/50 ML BAG IVPB SCH ×4 (07:27→23:23)
[2017-12-11 07:31] LABS: HEMOGLOBIN 10.8 g/dL (12.0-18.0); MEAN CELL VOLUME 81.5 fL (80.0-94.0); MEAN CORPUSCULAR HEMOGLOBIN 27.3 pg (27.0-31.0); MEAN CORPUSCULAR HGB CONC 33.5 g/dL (33.0-37.0); RBC 3.98 Mil/uL (4.40-5.90); RED CELL DISTRIBUTION WIDTH 16.5 % (11.5-14.5); WHITE BLOOD COUNT 10.5 K/uL (4.8-10.8)
[2017-12-11 07:49] LABS: BLOOD UREA NITROGEN 7 mg/dL (9-20); CALCIUM 8.2 mg/dl (8.6-10.4); GFR AFRICAN-AMERICAN > 60; GFR NON-AFRICAN AMERICAN > 60
[2017-12-11] MEDS: Fluticasone-Salmeterol 250-50mcg Diskus INH SCH ×2 (07:52→19:46)
[2017-12-11] MEDS: Albuterol-Ipratrop 3 mg / 0.5 (3 ml) UD INH PRN ×2 (07:52→19:46)
[2017-12-11] MEDS: Enoxaparin 40 mg Syringe SC SCH (09:30)
[2017-12-11] MEDS: Docusate-Senna 50 mg-8.6 mg Tab PO SCH ×2 (11:10→18:01)
--- NOTE | 2017-12-11 14:14 | CP.PCM.PN ---
Subjective - Date & Time of Evaluation Date of Evaluation: 12/11/17 Time of Evaluation: 07:20 - Subjective Subjective: clinic Objective - Vital Signs/Intake and Output Vital Signs (last 24 hours): Temp Pulse Resp BP Pulse Ox 97.2 F L 82 20 114/76 95 12/11/17 08:22 12/11/17 08:22 12/11/17 08:22 12/11/17 09:28 12/11/17 08:22 Intake and Output: 12/11/17 12/11/17 06:59 18:59 Intake Total 500 Output Total 700 Balance -200 - Medications Medications: Current Medications Acetaminophen (Tylenol 325mg Tab) 650 mg PO Q6 PRN PRN Reason: Fever >100.4 F Last Admin: 12/09/17 10:06 Dose: 650 mg Albuterol/Ipratropium (Duoneb 3 Mg/0.5 Mg (3 Ml) Ud) 3 ml INH RQ6 PRN PRN Reason: Shortness of Breath Last Admin: 12/11/17 07:52 Dose: 3 ml Aspirin (Ecotrin) 81 mg PO DAILY [facility] Last Admin: 12/11/17 09:29 Dose: 81 mg Clonidine HCl (Catapres) 0.1 mg PO BID [facility] Last Admin: 12/11/17 09:25 Dose: 0.1 mg Enoxaparin Sodium (Lovenox) 40 mg SC DAILY [facility] Last Admin: 12/11/17 09:30 Dose: 40 mg Furosemide (Lasix) 40 mg PO DAILY [facility] Last Admin: 12/11/17 09:28 Dose: 40 mg Guaifenesin/Dextromethorphan (Robitussin Dm) 15 ml PO Q6H [facility] Last Admin: 12/11/17 12:20 Dose: 15 ml Vancomycin HCl 1,250 mg/ (Sodium Chloride) 250 mls @ 166.6 mls/hr IVPB Q12H [facility] Last Admin: 12/11/17 02:16 Dose: 166.6 mls/hr Piperacillin Sod/Tazobactam Sod (Zosyn 3.375 Gm Iv Premix) 3.375 gm in 50 mls @ 100 mls/hr IVPB Q8H [facility] PRN Reason: Protocol Last Admin: 12/11/17 07:27 Dose: 100 mls/hr Metronidazole (Flagyl) 500 mg in 100 mls @ 100 mls/hr IVPB Q8 [facility] PRN Reason: Protocol Last Admin: 12/11/17 13:42 Dose: 100 mls/hr Losartan Potassium (Cozaar) 50 mg PO DAILY [facility] Last Admin: 12/11/17 09:27 Dose: 50 mg Metoprolol Tartrate (Lopressor) 25 mg PO BID [facility] Last Admin: 12/11/17 09:27 Dose: 25 mg Morphine Sulfate (Morphine) 2 mg IVP Q4H PRN PRN Reason: Pain, moderate (4-7) Last Admin: 12/11/17 12:21 Dose: 2 mg Fluticasone/Salmeterol (Advair Diskus 250/50) 1 puff INH RQ12 [facility] Last Admin: 12/11/17 07:52 Dose: 1 puff Senna/Docusate Sodium (Senokot S 50 Mg-8.6 Mg) 1 tab PO BID [facility] Last Admin: 12/11/17 11:10 Dose: Not Given - Labs Labs: 12/11/17 07:24 12/11/17 07:24 PT 14.2 SECONDS (9.7-12.2) H 11/29/17 14:41 INR 1.3 11/29/17 14:41 APTT 19 SECONDS (21-34) L 11/29/17 14:41 - Constitutional Appears: Well - Head Exam Head Exam: ATRAUMATIC, NORMAL INSPECTION, NORMOCEPHALIC - Eye Exam Eye Exam: EOMI, Normal appearance, PERRL Pupil Exam: NORMAL ACCOMODATION, PERRL - ENT Exam ENT Exam: Mucous Membranes Moist, Normal Exam - Neck Exam Neck Exam: Full ROM, Normal Inspection. absent: Lymphadenopathy - Respiratory Exam Respiratory Exam: Decreased Breath Sounds - Cardiovascular Exam Cardiovascular Exam: REGULAR RHYTHM, +S1, +S2 - GI/Abdominal Exam GI & Abdominal Exam: Soft, Diminished Bowel Sounds - Rectal Exam Rectal Exam: Deferred
--- NOTE | 2017-12-11 15:18 | CP.PCM.PN ---
<Yahir Ragland Julita - Last Filed: 12/11/17 15:15> Subjective - Date & Time of Evaluation Date of Evaluation: 12/11/17 Time of Evaluation: 15:16 - Subjective Subjective: General Surgery: Dr New Pt S&E. QUINCY. Resting comfortably in chair. Wound vac in place. CT to waterseal. Denies f/c, sob or chest pain. Objective - Vital Signs/Intake and Output Vital Signs (last 24 hours): Temp Pulse Resp BP Pulse Ox 97.2 F L 72 20 114/76 95 12/11/17 08:22 12/11/17 14:25 12/11/17 08:22 12/11/17 09:28 12/11/17 14:25 Intake and Output: 12/11/17 12/11/17 06:59 18:59 Intake Total 500 Output Total 700 Balance -200 - Medications Medications: Current Medications Acetaminophen (Tylenol 325mg Tab) 650 mg PO Q6 PRN PRN Reason: Fever >100.4 F Last Admin: 12/09/17 10:06 Dose: 650 mg Albuterol/Ipratropium (Duoneb 3 Mg/0.5 Mg (3 Ml) Ud) 3 ml INH RQ6 PRN PRN Reason: Shortness of Breath Last Admin: 12/11/17 07:52 Dose: 3 ml Aspirin (Ecotrin) 81 mg PO DAILY [facility] Last Admin: 12/11/17 09:29 Dose: 81 mg Clonidine HCl (Catapres) 0.1 mg PO BID [facility] Last Admin: 12/11/17 09:25 Dose: 0.1 mg Enoxaparin Sodium (Lovenox) 40 mg SC DAILY [facility] Last Admin: 12/11/17 09:30 Dose: 40 mg Furosemide (Lasix) 40 mg PO DAILY [facility] Last Admin: 12/11/17 09:28 Dose: 40 mg Guaifenesin/Dextromethorphan (Robitussin Dm) 15 ml PO Q6H [facility] Last Admin: 12/11/17 12:20 Dose: 15 ml Vancomycin HCl 1,250 mg/ (Sodium Chloride) 250 mls @ 166.6 mls/hr IVPB Q12H [facility] Last Admin: 12/11/17 15:04 Dose: 166.6 mls/hr Piperacillin Sod/Tazobactam Sod (Zosyn 3.375 Gm Iv Premix) 3.375 gm in 50 mls @ 100 mls/hr IVPB Q8H [facility] PRN Reason: Protocol Last Admin: 12/11/17 07:27 Dose: 100 mls/hr Metronidazole (Flagyl) 500 mg in 100 mls @ 100 mls/hr IVPB Q8 [facility] PRN Reason: Protocol Last Admin: 12/11/17 13:42 Dose: 100 mls/hr Losartan Potassium (Cozaar) 50 mg PO DAILY [facility] Last Admin: 12/11/17 09:27 Dose: 50 mg Metoprolol Tartrate (Lopressor) 25 mg PO BID [facility] Last Admin: 12/11/17 09:27 Dose: 25 mg Morphine Sulfate (Morphine) 2 mg IVP Q4H PRN PRN Reason: Pain, moderate (4-7) Last Admin: 12/11/17 12:21 Dose: 2 mg Fluticasone/Salmeterol (Advair Diskus 250/50) 1 puff INH RQ12 [facility] Last Admin: 12/11/17 07:52 Dose: 1 puff Senna/Docusate Sodium (Senokot S 50 Mg-8.6 Mg) 1 tab PO BID [facility] Last Admin: 12/11/17 11:10 Dose: Not Given - Labs Labs: 12/11/17 07:24 12/11/17 07:24 PT 14.2 SECONDS (9.7-12.2) H 11/29/17 14:41 INR 1.3 11/29/17 14:41 APTT 19 SECONDS (21-34) L 11/29/17 14:41 - Constitutional Appears: Non-toxic, No Acute Distress - Respiratory Exam Respiratory Exam: absent: Accessory Muscle Use, Respiratory Distress - Cardiovascular Exam Cardiovascular Exam: REGULAR RHYTHM. absent: Tachycardia - GI/Abdominal Exam GI & Abdominal Exam: Soft. absent: Distended, Firm, Tenderness - Neurological Exam Neurological Exam: Alert, Awake, Oriented x3 - Psychiatric Exam Psychiatric exam: Anxious, Normal Affect - Skin Skin Exam: Normal Color, Warm Assessment and Plan - Assessment and Plan (Free Text) Assessment: 42M s/p left thoracostomy tube and left wound debridement with vac placement Plan: cont abx will change wound vac tomorrow d/c planning per primary will remove chest tube prior to discharge d/w Dr Virgen Ragland, PGY3 <Andres New - Last Filed: 12/11/17 21:37> Objective - Vital Signs/Intake and Output Vital Signs (last 24 hours): Temp Pulse Resp BP Pulse Ox 97.4 F L 93 H 20 112/77 96 12/11/17 16:00 12/11/17 16:00 12/11/17 16:00 12/11/17 18:01 12/11/17 16:00 Intake and Output: 12/11/17 12/12/17 18:59 06:59 Intake Total 1500 Output Total 1710 Balance -210 - Medications Medications: Current Medications Acetaminophen (Tylenol 325mg Tab) 650 mg PO Q6 PRN PRN Reason: Fever >100.4 F Last Admin: 12/09/17 10:06 Dose: 650 mg Albuterol/Ipratropium (Duoneb 3 Mg/0.5 Mg (3 Ml) Ud) 3 ml INH RQ6 PRN PRN Reason: Shortness of Breath Last Admin: 12/11/17 19:46 Dose: 3 ml Aspirin (Ecotrin) 81 mg PO DAILY [facility] Last Admin: 12/11/17 09:29 Dose: 81 mg Clonidine HCl (Catapres) 0.1 mg PO BID [facility] Last Admin: 12/11/17 18:01 Dose: 0.1 mg Enoxaparin Sodium (Lovenox) 40 mg SC DAILY [facility] Last Admin: 12/11/17 09:30 Dose: 40 mg Furosemide (Lasix) 40 mg PO DAILY [facility] Last Admin: 12/11/17 09:28 Dose: 40 mg Guaifenesin/Dextromethorphan (Robitussin Dm) 15 ml PO Q6H [facility] Last Admin: 12/11/17 18:02 Dose: 15 ml Vancomycin HCl 1,250 mg/ (Sodium Chloride) 250 mls @ 166.6 mls/hr IVPB Q12H [facility] Last Admin: 12/11/17 15:04 Dose: 166.6 mls/hr Piperacillin Sod/Tazobactam Sod (Zosyn 3.375 Gm Iv Premix) 3.375 gm in 50 mls @ 100 mls/hr IVPB Q8H [facility] PRN Reason: Protocol Last Admin: 12/11/17 15:18 Dose: 100 mls/hr Metronidazole (Flagyl) 500 mg in 100 mls @ 100 mls/hr IVPB Q8 [facility] PRN Reason: Protocol Last Admin: 12/11/17 21:23 Dose: 100 mls/hr Losartan Potassium (Cozaar) 50 mg PO DAILY [facility] Last Admin: 12/11/17 09:27 Dose: 50 mg Metoprolol Tartrate (Lopressor) 25 mg PO BID [facility] Last Admin: 12/11/17 18:01 Dose: 25 mg Fluticasone/Salmeterol (Advair Diskus 250/50) 1 puff INH RQ12 [facility] Last Admin: 12/11/17 19:46 Dose: 1 puff Senna/Docusate Sodium (Senokot S 50 Mg-8.6 Mg) 1 tab PO BID [facility] Last Admin: 12/11/17 18:01 Dose: 1 tab - Labs Labs: 12/11/17 07:24 12/11/17 07:24 PT 14.2 SECONDS (9.7-12.2) H 11/29/17 14:41 INR 1.3 11/29/17 14:41 APTT 19 SECONDS (21-34) L 11/29/17 14:41 Attending/Attestation - Attestation I have personally seen and examined this patient.: Yes I have fully participated in the care of the patient.: Yes I have reviewed all pertinent clinical information, including history, physical exam and plan: Yes Notes (Text): Pt was seen and examine at bedside Agree with above note and assessment Wound vac change IV antibiotics C.w current mx Plan d.w pt in detail Risk and benefit explained in detail.
--- NOTE | 2017-12-11 20:27 | CP.PCM.PN ---
Subjective - Date & Time of Evaluation Date of Evaluation: 12/11/17 Time of Evaluation: 20:27 - Subjective Subjective: AFEBRILE Resting comfortably in chair. Wound vac in place. CT to waterseal. C/O PAIN CT EXIT SITE PATH REPORTS REVIEWED; 12/01/17 ABDOMINAL WALL -VE FOR MALIGNANCY. OLD HGE. 12/04/17; DEBRIDED TISSUE LEFT ABDOMINAL WALL +VE FRAGMENTSOF NECROTIC NON VIABLE TISSUE. 12/06/17 LT. CHEST WALL SOFT TISSUE-CHRONIC INFLAMATION/HGE/NECROSIS. 12/01/17- PLEURAL FLUID CYTOLOGY -VE MALIGNANT CELLS. CASE DISCUSSED WITH DR. FAIR-SURGERY REQUESTED TO CONSIDER REPEAT TISSUE BIOPSIES OF BOTH LUNG /AND ABDOMINAL WALL TO BE SENT IN STERILE CONTAINER WITHOUT FORMALIN FOR SPECIAL STAINS FOR AFB, ACTINOMYCOSIS. NOCARDIA /PCR .( TB DOES NOT STAIN IN FORMALIN ) AND FORMALIN CONTAINER FOR HISTOLOGY/CANCER SCREENING. RESIDENT TO CALL MICRO-AND OBTAIN SPECIAL MEDIA / IF NEEDED. Objective - Vital Signs/Intake and Output Vital Signs (last 24 hours): Temp Pulse Resp BP Pulse Ox 97.4 F L 93 H 20 112/77 96 12/11/17 16:00 12/11/17 16:00 12/11/17 16:00 12/11/17 18:01 12/11/17 16:00 Intake and Output: 12/11/17 12/12/17 18:59 06:59 Intake Total 1500 Output Total 1710 Balance -210 - Medications Medications: Current Medications Acetaminophen (Tylenol 325mg Tab) 650 mg PO Q6 PRN PRN Reason: Fever >100.4 F Last Admin: 12/09/17 10:06 Dose: 650 mg Albuterol/Ipratropium (Duoneb 3 Mg/0.5 Mg (3 Ml) Ud) 3 ml INH RQ6 PRN PRN Reason: Shortness of Breath Last Admin: 12/11/17 19:46 Dose: 3 ml Aspirin (Ecotrin) 81 mg PO DAILY [facility] Last Admin: 12/11/17 09:29 Dose: 81 mg Clonidine HCl (Catapres) 0.1 mg PO BID [facility] Last Admin: 12/11/17 18:01 Dose: 0.1 mg Enoxaparin Sodium (Lovenox) 40 mg SC DAILY [facility] Last Admin: 12/11/17 09:30 Dose: 40 mg Furosemide (Lasix) 40 mg PO DAILY [facility] Last Admin: 12/11/17 09:28 Dose: 40 mg Guaifenesin/Dextromethorphan (Robitussin Dm) 15 ml PO Q6H [facility] Last Admin: 12/11/17 18:02 Dose: 15 ml Vancomycin HCl 1,250 mg/ (Sodium Chloride) 250 mls @ 166.6 mls/hr IVPB Q12H [facility] Last Admin: 12/11/17 15:04 Dose: 166.6 mls/hr Piperacillin Sod/Tazobactam Sod (Zosyn 3.375 Gm Iv Premix) 3.375 gm in 50 mls @ 100 mls/hr IVPB Q8H [facility] PRN Reason: Protocol Last Admin: 12/11/17 15:18 Dose: 100 mls/hr Metronidazole (Flagyl) 500 mg in 100 mls @ 100 mls/hr IVPB Q8 [facility] PRN Reason: Protocol Last Admin: 12/11/17 13:42 Dose: 100 mls/hr Losartan Potassium (Cozaar) 50 mg PO DAILY [facility] Last Admin: 12/11/17 09:27 Dose: 50 mg Metoprolol Tartrate (Lopressor) 25 mg PO BID [facility] Last Admin: 12/11/17 18:01 Dose: 25 mg Morphine Sulfate (Morphine) 2 mg IVP Q4H PRN PRN Reason: Pain, moderate (4-7) Last Admin: 12/11/17 17:19 Dose: 2 mg Fluticasone/Salmeterol (Advair Diskus 250/50) 1 puff INH RQ12 [facility] Last Admin: 12/11/17 19:46 Dose: 1 puff Senna/Docusate Sodium (Senokot S 50 Mg-8.6 Mg) 1 tab PO BID [facility] Last Admin: 12/11/17 18:01 Dose: 1 tab - Labs Labs: 12/11/17 07:24 12/11/17 07:24 PT 14.2 SECONDS (9.7-12.2) H 11/29/17 14:41 INR 1.3 11/29/17 14:41 APTT 19 SECONDS (21-34) L 11/29/17 14:41 - Constitutional Appears: No Acute Distress - Head Exam Head Exam: NORMAL INSPECTION - Eye Exam Eye Exam: EOMI, PERRL - ENT Exam ENT Exam: Normal Oropharynx - Neck Exam Neck Exam: Normal Inspection - Respiratory Exam Respiratory Exam: Decreased Breath Sounds, Rhonchi (LT SIDE CT TO WATER SEAL.) - Cardiovascular Exam Cardiovascular Exam: REGULAR RHYTHM, +S1, +S2 - GI/Abdominal Exam GI & Abdominal Exam: Soft, Tenderness (EXIT SIDE TUBE TO WOUND VAC), Hypoactive Bowel Sounds - Extremities Exam Extremities Exam: Pedal Edema. absent: Calf Tenderness - Neurological Exam Neurological Exam: Awake, CN II-XII Intact, Oriented x3, Reflexes Normal - Skin Skin Exam: Normal Color, Warm Assessment and Plan (1) Pneumonia Status: Acute (2) Left upper quadrant abdominal swelling Status: Acute (3) Bronchitis Status: Acute (4) Morbid obesity Status: Acute - Assessment and Plan (Free Text) Plan: ETIOLOGY OF FLUID COLLECTION LEFT LUNG AND LEFT ABDOMINAL WALL NOT CLEAR.? INFECTIOUS VS OLD HGE,TRAUMA PT PLEURAL FLUID WAS EXUDATIVE W-VE CULTURES SO FAR. CONTINUE IV ZOSYN 3.375 EVERY 8 HOURLY 11/15/17 CONTINUE IV VANCOMYCIN 1250 MG iv EVERY 12 HOURLY FOR mrsa STREP COVERAGE . ON IV FLAGYL 500MG IV Q8HRLY FOR ANAEROBIC COVERAGE. 12/01/17 . F/U CULTURES AND SPECIAL STAINS DISCUSSED WITH SURGERY PLEASE CONSIDER RE BX AND SEND TISSUE IN NONFORMALIN /AND FORMALIN CONTAINER FOR SPECIAL STAINS DISCUSSED. DR NICHOLS TO DISCUSS WITH CT SURGERY FOR REBX /AND TISSUE LUNG FOR SPECIAL CULTURE AND STAINS FOR MYCOBACTERIA, FUNGUS, NOCARDIA,ACTINOMYCOSIS.
--- NOTE | 2017-12-11 21:27 | PN ---
DATE: 12/11/2017 SUBJECTIVE: Patient's surgery for wound VAC replacement was postponed for tomorrow. He denies any chest pain. PHYSICAL EXAMINATION: VITAL SIGNS: Blood pressure 115/75, heart rate is 72, temperature 97.2, respirations 20. HEENT: Normocephalic. CHEST: Diminished breath sounds over the left base. HEART: S1 and S2, regular. EXTREMITIES: 1+ pitting edema. LABORATORY DATA: Today's hemoglobin and hematocrit 10.8 and 32.7, white count 10.5, platelet count 461,000. Today's SMA-7 is within normal limits except for BUN of 7. ASSESSMENT: 1. Morbid obesity and sleep apnea. 2. Hypertension. 3. Status post chest tube placement for last left pleural effusion. 4. Status post incision and drainage of left flank abdominal wall abscess. RECOMMENDATIONS: Continue current clonidine 0.1 mg twice a day, Cozaar 50 mg once a day, aspirin 81 mg once a day, Lasix 20 mg p.o. once a day, Lopressor 25 mg twice a day, Lovenox at 40 mg subcutaneous once a day. Continue IV vancomycin and IV Zosyn. Lazaro Omalley MD
[2017-12-12] MEDS: Morphine 4 MG/ML VIAL IVP PRN ×4 (03:07→23:49)
[2017-12-12] MEDS: metroNIDAZOLE IV 500 mg/100 ml 500 MG/100 ML BAG IVPB SCH ×3 (05:11→21:08)
[2017-12-12] MEDS: guaiFENesin DM 100 mg-10 mg/5 ml UD PO SCH ×3 (05:29→18:17)
[2017-12-12] MEDS: Piperacill/Tazo 3.375gm in Dex 3.375 GM/50 ML BAG IVPB SCH ×3 (06:44→22:26)
[2017-12-12 07:50] LABS: HEMOGLOBIN 10.1 g/dL (12.0-18.0); MEAN CELL VOLUME 82.2 fL (80.0-94.0); MEAN CORPUSCULAR HEMOGLOBIN 27.8 pg (27.0-31.0); MEAN CORPUSCULAR HGB CONC 33.8 g/dL (33.0-37.0); MEAN PLATELET VOLUME 7.4 fL (7.2-11.7); RBC 3.62 Mil/uL (4.40-5.90); RED CELL DISTRIBUTION WIDTH 15.9 % (11.5-14.5)
[2017-12-12 08:09] LABS: BLOOD UREA NITROGEN 10 mg/dL (9-20); GFR AFRICAN-AMERICAN > 60; GFR NON-AFRICAN AMERICAN > 60
[2017-12-12 08:12] LABS: IMMUNOGLOBULIN A 315.2 mg/dL (70.0-400.0); IMMUNOGLOBULIN G 751.3 mg/dL (700.0-1600.0); IMMUNOGLOBULIN M 62.1 mg/dL (40.0-230.0)
[2017-12-12] MEDS: Fluticasone-Salmeterol 250-50mcg Diskus INH SCH ×2 (08:47→19:21)
[2017-12-12] MEDS: Enoxaparin 40 mg Syringe SC SCH (09:51)
[2017-12-12] MEDS: Docusate-Senna 50 mg-8.6 mg Tab PO SCH ×2 (09:52→18:17)
--- NOTE | 2017-12-12 09:57 | CP.PCM.PN ---
Subjective - Date & Time of Evaluation Date of Evaluation: 12/12/17 Time of Evaluation: 09:51 - Subjective Subjective: Thoracic Surgery Progress note. Dr. Elizabeth. Pt seen and examined at bedside. No acute events overnight. No fevers, no chills. Denies CP/SOB. CT in place. Wound vac in place. Infectious disease team requesting new tissue and/or pleural biopsy. Objective - Vital Signs/Intake and Output Vital Signs (last 24 hours): Temp Pulse Resp BP Pulse Ox 97.5 F L 85 20 130/77 96 12/12/17 08:00 12/12/17 08:00 12/12/17 08:00 12/12/17 08:00 12/12/17 08:00 Intake and Output: 12/12/17 12/12/17 06:59 18:59 Intake Total 650 760 Output Total 630 660 Balance 20 100 - Medications Medications: Current Medications Acetaminophen (Tylenol 325mg Tab) 650 mg PO Q6 PRN PRN Reason: Fever >100.4 F Last Admin: 12/09/17 10:06 Dose: 650 mg Albuterol/Ipratropium (Duoneb 3 Mg/0.5 Mg (3 Ml) Ud) 3 ml INH RQ6 PRN PRN Reason: Shortness of Breath Last Admin: 12/11/17 19:46 Dose: 3 ml Aspirin (Ecotrin) 81 mg PO DAILY [facility] Last Admin: 12/11/17 09:29 Dose: 81 mg Clonidine HCl (Catapres) 0.1 mg PO BID [facility] Last Admin: 12/11/17 18:01 Dose: 0.1 mg Enoxaparin Sodium (Lovenox) 40 mg SC DAILY [facility] Last Admin: 12/11/17 09:30 Dose: 40 mg Furosemide (Lasix) 40 mg PO DAILY [facility] Last Admin: 12/11/17 09:28 Dose: 40 mg Guaifenesin/Dextromethorphan (Robitussin Dm) 15 ml PO Q6H [facility] Last Admin: 12/12/17 05:29 Dose: 15 ml Vancomycin HCl 1,250 mg/ (Sodium Chloride) 250 mls @ 166.6 mls/hr IVPB Q12H [facility] Last Admin: 12/12/17 03:09 Dose: 166.6 mls/hr Piperacillin Sod/Tazobactam Sod (Zosyn 3.375 Gm Iv Premix) 3.375 gm in 50 mls @ 100 mls/hr IVPB Q8H [facility] PRN Reason: Protocol Last Admin: 12/12/17 06:44 Dose: 100 mls/hr Metronidazole (Flagyl) 500 mg in 100 mls @ 100 mls/hr IVPB Q8 [facility] PRN Reason: Protocol Last Admin: 12/12/17 05:11 Dose: 100 mls/hr Losartan Potassium (Cozaar) 50 mg PO DAILY [facility] Last Admin: 12/11/17 09:27 Dose: 50 mg Metoprolol Tartrate (Lopressor) 25 mg PO BID [facility] Last Admin: 12/11/17 18:01 Dose: 25 mg Morphine Sulfate (Morphine) 2 mg IVP Q4 PRN PRN Reason: Pain, moderate (4-7) Last Admin: 12/12/17 07:06 Dose: 2 mg Fluticasone/Salmeterol (Advair Diskus 250/50) 1 puff INH RQ12 [facility] Last Admin: 12/12/17 08:47 Dose: 1 puff Senna/Docusate Sodium (Senokot S 50 Mg-8.6 Mg) 1 tab PO BID [facility] Last Admin: 12/11/17 18:01 Dose: 1 tab - Labs Labs: 12/12/17 07:37 12/12/17 07:37 PT 14.2 SECONDS (9.7-12.2) H 11/29/17 14:41 INR 1.3 11/29/17 14:41 APTT 19 SECONDS (21-34) L 11/29/17 14:41 - Constitutional Appears: Well, Non-toxic, No Acute Distress - Head Exam Head Exam: ATRAUMATIC, NORMAL INSPECTION, NORMOCEPHALIC - Eye Exam Eye Exam: EOMI, Normal appearance - ENT Exam ENT Exam: Mucous Membranes Moist - Respiratory Exam Respiratory Exam: absent: Accessory Muscle Use, Respiratory Distress Additional comments: chest tube in place to water seal. Tidling well, no air leaks. Minimal output - Cardiovascular Exam Cardiovascular Exam: absent: JVD - GI/Abdominal Exam GI & Abdominal Exam: Soft. absent: Distended, Guarding, Rigid, Tenderness Additional comments: left chest/abd wall wound vac in place - Neurological Exam Neurological Exam: Alert, Awake, Oriented x3 - Skin Skin Exam: Dry, Intact, Normal Color, Warm Assessment and Plan - Assessment and Plan (Free Text) Assessment: 42yo M with left pleural effusion likely secondary to left chest/abd wall infection. S/p Chest tube POD 13 Plan: - Patient with increased risk for anesthesia. Pleural bx is with a low probability of offering diagnosis which would alter current management. If it is still required, we may consider setting up the patient for a Thoracotomy with pleural bx as out-patient. - Recommend considering IR intervention for possible biopsy - Continue Chest tube to waterseal in the interim, pending IR possible biopsy - wound vac care as per general surgery team Further recs as per Dr. Glenn Arredondo PGY1 surgery pager: [phone]
--- NOTE | 2017-12-12 10:58 | CP.PCM.PN ---
<Maria ElenaSorin - Last Filed: 12/12/17 10:53> Subjective - Date & Time of Evaluation Date of Evaluation: 12/12/17 Time of Evaluation: 06:45 - Subjective Subjective: Surgery progress note. Dr. New Pt seen and examined at bedside. No acute events overnight. No N/V/D. Tolerating diet. Left chest wall wound vac in place, no air leaks. No Chest pain , no SOB. Chest tube in place to waterseal, minimal output. Objective - Vital Signs/Intake and Output Vital Signs (last 24 hours): Temp Pulse Resp BP Pulse Ox 97.5 F L 85 20 130/77 96 12/12/17 08:00 12/12/17 08:00 12/12/17 08:00 12/12/17 09:53 12/12/17 08:00 Intake and Output: 12/12/17 12/12/17 06:59 18:59 Intake Total 650 760 Output Total 630 660 Balance 20 100 - Medications Medications: Current Medications Acetaminophen (Tylenol 325mg Tab) 650 mg PO Q6 PRN PRN Reason: Fever >100.4 F Last Admin: 12/09/17 10:06 Dose: 650 mg Albuterol/Ipratropium (Duoneb 3 Mg/0.5 Mg (3 Ml) Ud) 3 ml INH RQ6 PRN PRN Reason: Shortness of Breath Last Admin: 12/11/17 19:46 Dose: 3 ml Aspirin (Ecotrin) 81 mg PO DAILY [facility] Last Admin: 12/12/17 09:53 Dose: 81 mg Clonidine HCl (Catapres) 0.1 mg PO BID [facility] Last Admin: 12/12/17 09:53 Dose: 0.1 mg Enoxaparin Sodium (Lovenox) 40 mg SC DAILY [facility] Last Admin: 12/12/17 09:51 Dose: 40 mg Furosemide (Lasix) 40 mg PO DAILY [facility] Last Admin: 12/12/17 09:52 Dose: 40 mg Guaifenesin/Dextromethorphan (Robitussin Dm) 15 ml PO Q6H [facility] Last Admin: 12/12/17 05:29 Dose: 15 ml Vancomycin HCl 1,250 mg/ (Sodium Chloride) 250 mls @ 166.6 mls/hr IVPB Q12H [facility] Last Admin: 12/12/17 03:09 Dose: 166.6 mls/hr Piperacillin Sod/Tazobactam Sod (Zosyn 3.375 Gm Iv Premix) 3.375 gm in 50 mls @ 100 mls/hr IVPB Q8H [facility] PRN Reason: Protocol Last Admin: 12/12/17 06:44 Dose: 100 mls/hr Metronidazole (Flagyl) 500 mg in 100 mls @ 100 mls/hr IVPB Q8 [facility] PRN Reason: Protocol Last Admin: 12/12/17 05:11 Dose: 100 mls/hr Losartan Potassium (Cozaar) 50 mg PO DAILY [facility] Last Admin: 12/12/17 09:52 Dose: 50 mg Morphine Sulfate (Morphine) 2 mg IVP Q4 PRN PRN Reason: Pain, moderate (4-7) Last Admin: 12/12/17 07:06 Dose: 2 mg Fluticasone/Salmeterol (Advair Diskus 250/50) 1 puff INH RQ12 [facility] Last Admin: 12/12/17 08:47 Dose: 1 puff Senna/Docusate Sodium (Senokot S 50 Mg-8.6 Mg) 1 tab PO BID [facility] Last Admin: 12/12/17 09:52 Dose: 1 tab - Labs Labs: 12/12/17 07:37 12/12/17 07:37 PT 14.2 SECONDS (9.7-12.2) H 11/29/17 14:41 INR 1.3 11/29/17 14:41 APTT 19 SECONDS (21-34) L 11/29/17 14:41 - Constitutional Appears: Non-toxic, No Acute Distress - Head Exam Head Exam: ATRAUMATIC, NORMAL INSPECTION, NORMOCEPHALIC - Eye Exam Eye Exam: EOMI - ENT Exam ENT Exam: Mucous Membranes Moist - Respiratory Exam Respiratory Exam: NORMAL BREATHING PATTERN. absent: Accessory Muscle Use, Wheezes, Respiratory Distress Additional comments: left sided chest tube in place to waterseal - Cardiovascular Exam Cardiovascular Exam: RRR. absent: JVD - GI/Abdominal Exam GI & Abdominal Exam: Soft. absent: Guarding, Rigid, Tenderness, Rebound Additional comments: Left chest/abd wall wound - Wound vac in place. Good suction, no leaks. Clean and dry with 40cc per 24hrs output. - Extremities Exam Extremities Exam: Normal Inspection. absent: Calf Tenderness - Neurological Exam Neurological Exam: Alert, Awake, Oriented x3 Assessment and Plan - Assessment and Plan (Free Text) Assessment: 42yo M with left chest/abd wall infection with likely reactive pleural effusion. S/p left chest tube POD13, and left chest wall I&D POD 12 Plan: - Continue wound vac. Will replace wound vac today at bedside. Wound care nursing help appreciated. - Continue current management - Continue abx as per ID Further recs as per Dr. Virgen Arredondo PGY1 surgery pager: [phone] <Andres New - Last Filed: 12/13/17 11:04> Objective - Vital Signs/Intake and Output Vital Signs (last 24 hours): Temp Pulse Resp BP Pulse Ox 98 F 81 20 124/75 99 12/13/17 08:33 12/13/17 08:33 12/13/17 08:33 12/13/17 09:59 12/13/17 08:33 Intake and Output: 12/13/17 12/13/17 06:59 18:59 Intake Total 900 600 Output Total 800 550 Balance 100 50 - Medications Medications: Current Medications Acetaminophen (Tylenol 325mg Tab) 650 mg PO Q6 PRN PRN Reason: Fever >100.4 F Last Admin: 12/09/17 10:06 Dose: 650 mg Albuterol/Ipratropium (Duoneb 3 Mg/0.5 Mg (3 Ml) Ud) 3 ml INH RQ6 PRN PRN Reason: Shortness of Breath Last Admin: 12/13/17 07:28 Dose: 3 ml Aspirin (Ecotrin) 81 mg PO DAILY [facility] Last Admin: 12/13/17 10:00 Dose: 81 mg Clonidine HCl (Catapres) 0.1 mg PO BID [facility] Last Admin: 12/13/17 10:00 Dose: 0.1 mg Enoxaparin Sodium (Lovenox) 40 mg SC DAILY [facility] Last Admin: 12/13/17 10:00 Dose: 40 mg Furosemide (Lasix) 40 mg PO DAILY [facility] Last Admin: 12/13/17 09:59 Dose: 40 mg Guaifenesin/Dextromethorphan (Robitussin Dm) 15 ml PO Q6H [facility] Last Admin: 12/13/17 06:05 Dose: 15 ml Vancomycin HCl 1,250 mg/ (Sodium Chloride) 250 mls @ 166.6 mls/hr IVPB Q12H [facility] Last Admin: 12/13/17 03:30 Dose: 166.6 mls/hr Piperacillin Sod/Tazobactam Sod (Zosyn 3.375 Gm Iv Premix) 3.375 gm in 50 mls @ 100 mls/hr IVPB Q8H [facility] PRN Reason: Protocol Last Admin: 12/13/17 07:26 Dose: 100 mls/hr Metronidazole (Flagyl) 500 mg in 100 mls @ 100 mls/hr IVPB Q8 [facility] PRN Reason: Protocol Last Admin: 12/13/17 05:53 Dose: 100 mls/hr Losartan Potassium (Cozaar) 50 mg PO DAILY [facility] Last Admin: 12/13/17 10:00 Dose: 50 mg Morphine Sulfate (Morphine) 2 mg IVP Q4 PRN PRN Reason: Pain, moderate (4-7) Last Admin: 12/13/17 08:25 Dose: 2 mg Nystatin (Nystop Topical Powder) 1 applic TOP BID [facility] Last Admin: 12/13/17 10:01 Dose: 1 applic Oxycodone/Acetaminophen (Percocet 5/325 Mg Tab) 1 tab PO Q6H PRN PRN Reason: Pain, Mild (1-3) Stop: 12/15/17 11:29 Last Admin: 12/12/17 11:56 Dose: 1 tab Fluticasone/Salmeterol (Advair Diskus 250/50) 1 puff INH RQ12 [facility] Last Admin: 12/13/17 07:28 Dose: 1 puff Senna/Docusate Sodium (Senokot S 50 Mg-8.6 Mg) 1 tab PO BID [facility] Last Admin: 12/13/17 10:14 Dose: 1 tab - Labs Labs: 12/13/17 08:30 12/13/17 08:30 PT 14.2 SECONDS (9.7-12.2) H 11/29/17 14:41 INR 1.3 11/29/17 14:41 APTT 19 SECONDS (21-34) L 11/29/17 14:41 Attending/Attestation - Attestation I have personally seen and examined this patient.: Yes I have fully participated in the care of the patient.: Yes I have reviewed all pertinent clinical information, including history, physical exam and plan: Yes Notes (Text): 0Pt was seen and examined at bedside Agree with above note and assessment Pt is improving clinically CT surgery consult for Pleural biopsy IV antibiotics Plan d.w pt in detail Risk and benefit explained in detail
[2017-12-12] MEDS ORDERED: Oxycodone/Acetaminophen 5/325 mg Tab PO PRN (11:28)
[2017-12-12] MEDS ORDERED: HYDROmorphone 1 mg/ml ISec IVP ONE (11:29)
[2017-12-12] MEDS ORDERED: Lidocaine 2% Jelly (Uro-Jet) TOP ONE (11:37)
--- NOTE | 2017-12-12 15:38 | CP.PCM.PN ---
Subjective - Date & Time of Evaluation Date of Evaluation: 12/12/17 Time of Evaluation: 07:00 - Subjective Subjective: no n/v/d/ Objective - Vital Signs/Intake and Output Vital Signs (last 24 hours): Temp Pulse Resp BP Pulse Ox 97.5 F L 85 20 130/77 93 L 12/12/17 08:00 12/12/17 11:10 12/12/17 08:00 12/12/17 09:53 12/12/17 11:10 Intake and Output: 12/12/17 12/12/17 06:59 18:59 Intake Total 650 1760 Output Total 630 1545 Balance 20 215 - Medications Medications: Current Medications Acetaminophen (Tylenol 325mg Tab) 650 mg PO Q6 PRN PRN Reason: Fever >100.4 F Last Admin: 12/09/17 10:06 Dose: 650 mg Albuterol/Ipratropium (Duoneb 3 Mg/0.5 Mg (3 Ml) Ud) 3 ml INH RQ6 PRN PRN Reason: Shortness of Breath Last Admin: 12/11/17 19:46 Dose: 3 ml Aspirin (Ecotrin) 81 mg PO DAILY [facility] Last Admin: 12/12/17 09:53 Dose: 81 mg Clonidine HCl (Catapres) 0.1 mg PO BID [facility] Last Admin: 12/12/17 09:53 Dose: 0.1 mg Enoxaparin Sodium (Lovenox) 40 mg SC DAILY [facility] Last Admin: 12/12/17 09:51 Dose: 40 mg Furosemide (Lasix) 40 mg PO DAILY [facility] Last Admin: 12/12/17 09:52 Dose: 40 mg Guaifenesin/Dextromethorphan (Robitussin Dm) 15 ml PO Q6H [facility] Last Admin: 12/12/17 12:37 Dose: 15 ml Vancomycin HCl 1,250 mg/ (Sodium Chloride) 250 mls @ 166.6 mls/hr IVPB Q12H [facility] Last Admin: 12/12/17 03:09 Dose: 166.6 mls/hr Piperacillin Sod/Tazobactam Sod (Zosyn 3.375 Gm Iv Premix) 3.375 gm in 50 mls @ 100 mls/hr IVPB Q8H [facility] PRN Reason: Protocol Last Admin: 12/12/17 14:56 Dose: 100 mls/hr Metronidazole (Flagyl) 500 mg in 100 mls @ 100 mls/hr IVPB Q8 [facility] PRN Reason: Protocol Last Admin: 12/12/17 14:01 Dose: 100 mls/hr Losartan Potassium (Cozaar) 50 mg PO DAILY [facility] Last Admin: 12/12/17 09:52 Dose: 50 mg Morphine Sulfate (Morphine) 2 mg IVP Q4 PRN PRN Reason: Pain, moderate (4-7) Last Admin: 12/12/17 07:06 Dose: 2 mg Nystatin (Nystop Topical Powder) 1 applic TOP BID [facility] Last Admin: 12/12/17 12:39 Dose: Not Given Oxycodone/Acetaminophen (Percocet 5/325 Mg Tab) 1 tab PO Q6H PRN PRN Reason: Pain, Mild (1-3) Stop: 12/15/17 11:29 Last Admin: 12/12/17 11:56 Dose: 1 tab Fluticasone/Salmeterol (Advair Diskus 250/50) 1 puff INH RQ12 [facility] Last Admin: 12/12/17 08:47 Dose: 1 puff Senna/Docusate Sodium (Senokot S 50 Mg-8.6 Mg) 1 tab PO BID [facility] Last Admin: 12/12/17 09:52 Dose: 1 tab - Labs Labs: 12/12/17 07:37 12/12/17 07:37 PT 14.2 SECONDS (9.7-12.2) H 11/29/17 14:41 INR 1.3 11/29/17 14:41 APTT 19 SECONDS (21-34) L 11/29/17 14:41 - Constitutional Appears: Well - Head Exam Head Exam: ATRAUMATIC, NORMAL INSPECTION, NORMOCEPHALIC - Eye Exam Eye Exam: EOMI, Normal appearance, PERRL Pupil Exam: NORMAL ACCOMODATION, PERRL - ENT Exam ENT Exam: Mucous Membranes Moist, Normal Exam - Neck Exam Neck Exam: Full ROM, Normal Inspection. absent: Lymphadenopathy - Respiratory Exam Respiratory Exam: Decreased Breath Sounds - Cardiovascular Exam Cardiovascular Exam: REGULAR RHYTHM, +S1, +S2 - GI/Abdominal Exam GI & Abdominal Exam: Soft, Diminished Bowel Sounds - Rectal Exam Rectal Exam: Deferred Assessment and Plan (1) Abdominal pain Status: Acute (2) Abscess Status: Acute (3) Left upper quadrant abdominal swelling Status: Acute (4) Pleural effusion Status: Acute (5) Pneumonia Status: Acute (6) Pulmonary hypertension Status: Acute (7) Bronchitis Status: Acute (8) Bronchospasm Status: Acute (9) Chronic venous stasis dermatitis Status: Acute (10) Cough Status: Acute (11) Influenza-like illness Status: Acute (12) Leg edema Status: Acute (13) Leg swelling Status: Acute (14) Medical assessment Status: Acute (15) Morbid obesity Status: Acute (16) Pedal edema Status: Acute (17) Reactive airway disease Status: Acute (18) Rhabdomyolysis Status: Acute (19) Tinea pedis Status: Acute (20) Upper respiratory infection Status: Acute (21) Uvulitis Status: Acute - Assessment and Plan (Free Text) Plan: Small wound VAC in place Chest tube in place with decreased output Continue DuoNeb Continue Lovenox Continue ID consult Follow-up with the surgery Continue Zosyn Continue Flagyl Continue with vancomycin IV Continue all other medications
[2017-12-12] MEDS: Albuterol-Ipratrop 3 mg / 0.5 (3 ml) UD INH PRN (19:21)
--- NOTE | 2017-12-12 22:17 | CP.PCM.PN ---
Subjective - Date & Time of Evaluation Date of Evaluation: 12/12/17 Time of Evaluation: 22:17 - Subjective Subjective: AFEBRILE Resting comfortably in chair. Wound vac in place. CT to waterseal. CT -SURGERY F/U NOTED. PT IS BEING TREATED WITH BROAD SPECTRUM ANTIBIOTICS FOR CAP WITH PARAPNEUMONIC EXUDATIVE EFFUSION. ETIOLOGY OF ABDOMINAL WALL COLLECTION /AND NECROTIC DEBRIS/TISSUE SIMULTANEOUSLY NOT CLEAR. UNDERLYING MYCOBACTERIAL(TB ) ,ACTINOMYCOSIS VS NOCARDIA, MALIGNANCY CANNOT BE R /O WITHOUT BX/? THORACOTOMY OR VATS. WILL DISCUSS WITH CT-SURGERY- RISKS/BENEFITS IN THIS MORBIDLY OBESE PT. CONTINUE EMPIRIC ABX FOR NOW. WILL DISCUSS W PMD DR DILL Objective - Vital Signs/Intake and Output Vital Signs (last 24 hours): Temp Pulse Resp BP Pulse Ox 97.3 F L 87 18 111/73 97 12/12/17 17:01 12/12/17 17:01 12/12/17 17:01 12/12/17 17:01 12/12/17 17:01 Intake and Output: 12/12/17 12/13/17 18:59 06:59 Intake Total 1760 Output Total 1545 Balance 215 - Medications Medications: Current Medications Acetaminophen (Tylenol 325mg Tab) 650 mg PO Q6 PRN PRN Reason: Fever >100.4 F Last Admin: 12/09/17 10:06 Dose: 650 mg Albuterol/Ipratropium (Duoneb 3 Mg/0.5 Mg (3 Ml) Ud) 3 ml INH RQ6 PRN PRN Reason: Shortness of Breath Last Admin: 12/12/17 19:21 Dose: 3 ml Aspirin (Ecotrin) 81 mg PO DAILY [facility] Last Admin: 12/12/17 09:53 Dose: 81 mg Clonidine HCl (Catapres) 0.1 mg PO BID [facility] Last Admin: 12/12/17 18:17 Dose: 0.1 mg Enoxaparin Sodium (Lovenox) 40 mg SC DAILY [facility] Last Admin: 12/12/17 09:51 Dose: 40 mg Furosemide (Lasix) 40 mg PO DAILY [facility] Last Admin: 12/12/17 09:52 Dose: 40 mg Guaifenesin/Dextromethorphan (Robitussin Dm) 15 ml PO Q6H [facility] Last Admin: 12/12/17 18:17 Dose: 15 ml Vancomycin HCl 1,250 mg/ (Sodium Chloride) 250 mls @ 166.6 mls/hr IVPB Q12H [facility] Last Admin: 12/12/17 16:48 Dose: 166.6 mls/hr Piperacillin Sod/Tazobactam Sod (Zosyn 3.375 Gm Iv Premix) 3.375 gm in 50 mls @ 100 mls/hr IVPB Q8H [facility] PRN Reason: Protocol Last Admin: 12/12/17 14:56 Dose: 100 mls/hr Metronidazole (Flagyl) 500 mg in 100 mls @ 100 mls/hr IVPB Q8 [facility] PRN Reason: Protocol Last Admin: 12/12/17 21:08 Dose: 100 mls/hr Losartan Potassium (Cozaar) 50 mg PO DAILY [facility] Last Admin: 12/12/17 09:52 Dose: 50 mg Morphine Sulfate (Morphine) 2 mg IVP Q4 PRN PRN Reason: Pain, moderate (4-7) Last Admin: 12/12/17 19:00 Dose: 2 mg Nystatin (Nystop Topical Powder) 1 applic TOP BID [facility] Last Admin: 12/12/17 18:16 Dose: 1 applic Oxycodone/Acetaminophen (Percocet 5/325 Mg Tab) 1 tab PO Q6H PRN PRN Reason: Pain, Mild (1-3) Stop: 12/15/17 11:29 Last Admin: 12/12/17 11:56 Dose: 1 tab Fluticasone/Salmeterol (Advair Diskus 250/50) 1 puff INH RQ12 [facility] Last Admin: 12/12/17 19:21 Dose: 1 puff Senna/Docusate Sodium (Senokot S 50 Mg-8.6 Mg) 1 tab PO BID [facility] Last Admin: 12/12/17 18:17 Dose: 1 tab - Labs Labs: 12/12/17 07:37 12/12/17 07:37 PT 14.2 SECONDS (9.7-12.2) H 11/29/17 14:41 INR 1.3 11/29/17 14:41 APTT 19 SECONDS (21-34) L 11/29/17 14:41 - Constitutional Appears: No Acute Distress - Head Exam Head Exam: NORMAL INSPECTION - Eye Exam Eye Exam: EOMI, PERRL - ENT Exam ENT Exam: Normal Oropharynx - Neck Exam Neck Exam: Normal Inspection - Respiratory Exam Respiratory Exam: Decreased Breath Sounds (LT LUNG.) - Cardiovascular Exam Cardiovascular Exam: REGULAR RHYTHM, +S1, +S2 - GI/Abdominal Exam GI & Abdominal Exam: Soft, Tenderness (CT SITE +VE), Normal Bowel Sounds - Extremities Exam Extremities Exam: Pedal Edema. absent: Calf Tenderness - Neurological Exam Neurological Exam: Awake, CN II-XII Intact, Oriented x3, Reflexes Normal - Psychiatric Exam Psychiatric exam: Normal Mood - Skin Skin Exam: Normal Color, Warm Assessment and Plan (1) Pneumonia Status: Acute (2) Left upper quadrant abdominal swelling Status: Acute (3) Bronchitis Status: Acute (4) Morbid obesity Status: Acute - Assessment and Plan (Free Text) Plan: CONTINUE IV ZOSYN 3.375 EVERY 8 HOURLY 11/15/17 CONTINUE IV VANCOMYCIN 1250 MG iv EVERY 12 HOURLY FOR mrsa STREP COVERAGE . ON IV FLAGYL 500MG IV Q8HRLY FOR ANAEROBIC COVERAGE. 12/01/17 . F/U CULTURES AND SPECIAL STAINS CT/WOUND VAC CARE PER SURGERY PER CONSULTANTS.
[2017-12-13] MEDS: guaiFENesin DM 100 mg-10 mg/5 ml UD PO SCH ×5 (01:09→23:32)
[2017-12-13] MEDS: Morphine 4 MG/ML VIAL IVP PRN ×5 (03:50→21:08)
[2017-12-13] MEDS: metroNIDAZOLE IV 500 mg/100 ml 500 MG/100 ML BAG IVPB SCH ×3 (05:53→21:08)
[2017-12-13] MEDS: Piperacill/Tazo 3.375gm in Dex 3.375 GM/50 ML BAG IVPB SCH ×3 (07:26→21:53)
[2017-12-13] MEDS: Fluticasone-Salmeterol 250-50mcg Diskus INH SCH ×2 (07:28→19:29)
[2017-12-13] MEDS: Albuterol-Ipratrop 3 mg / 0.5 (3 ml) UD INH PRN ×3 (07:28→13:18)
[2017-12-13 08:35] LABS: HEMOGLOBIN 11.1 g/dL (12.0-18.0); MEAN CELL VOLUME 81.4 fL (80.0-94.0); MEAN CORPUSCULAR HEMOGLOBIN 27.4 pg (27.0-31.0); MEAN CORPUSCULAR HGB CONC 33.7 g/dL (33.0-37.0); MEAN PLATELET VOLUME 6.6 fL (7.2-11.7); RBC 4.06 Mil/uL (4.40-5.90); RED CELL DISTRIBUTION WIDTH 16.4 % (11.5-14.5); WHITE BLOOD COUNT 8.8 K/uL (4.8-10.8)
[2017-12-13 08:55] LABS: BLOOD UREA NITROGEN 9 mg/dL (9-20); CALCIUM 8.5 mg/dl (8.6-10.4); GFR AFRICAN-AMERICAN > 60; GFR NON-AFRICAN AMERICAN > 60
[2017-12-13] MEDS: Enoxaparin 40 mg Syringe SC SCH (10:00)
[2017-12-13] MEDS: Docusate-Senna 50 mg-8.6 mg Tab PO SCH ×2 (10:14→17:02)
--- NOTE | 2017-12-13 12:38 | CP.PCM.PN ---
<Yahir Ragland Julita - Last Filed: 12/13/17 12:35> Subjective - Date & Time of Evaluation Date of Evaluation: 12/13/17 Time of Evaluation: 12:35 - Subjective Subjective: General Surgery: Dr New Pt S&E. QUINCY. Had wound vac changed yesterday, tolerated well. Pt is much more upbeat and optimistic today. No current complaints. Denies f/c, sob or chest pain Objective - Vital Signs/Intake and Output Vital Signs (last 24 hours): Temp Pulse Resp BP Pulse Ox 98 F 81 20 124/75 99 12/13/17 08:33 12/13/17 08:33 12/13/17 08:33 12/13/17 09:59 12/13/17 08:33 Intake and Output: 12/13/17 12/13/17 06:59 18:59 Intake Total 900 600 Output Total 800 550 Balance 100 50 - Medications Medications: Current Medications Acetaminophen (Tylenol 325mg Tab) 650 mg PO Q6 PRN PRN Reason: Fever >100.4 F Last Admin: 12/09/17 10:06 Dose: 650 mg Albuterol/Ipratropium (Duoneb 3 Mg/0.5 Mg (3 Ml) Ud) 3 ml INH RQ6 PRN PRN Reason: Shortness of Breath Last Admin: 12/13/17 07:28 Dose: 3 ml Aspirin (Ecotrin) 81 mg PO DAILY [facility] Last Admin: 12/13/17 10:00 Dose: 81 mg Clonidine HCl (Catapres) 0.1 mg PO BID [facility] Last Admin: 12/13/17 10:00 Dose: 0.1 mg Enoxaparin Sodium (Lovenox) 40 mg SC DAILY [facility] Last Admin: 12/13/17 10:00 Dose: 40 mg Furosemide (Lasix) 40 mg PO DAILY [facility] Last Admin: 12/13/17 09:59 Dose: 40 mg Guaifenesin/Dextromethorphan (Robitussin Dm) 15 ml PO Q6H [facility] Last Admin: 12/13/17 12:33 Dose: 15 ml Vancomycin HCl 1,250 mg/ (Sodium Chloride) 250 mls @ 166.6 mls/hr IVPB Q12H [facility] Last Admin: 12/13/17 03:30 Dose: 166.6 mls/hr Piperacillin Sod/Tazobactam Sod (Zosyn 3.375 Gm Iv Premix) 3.375 gm in 50 mls @ 100 mls/hr IVPB Q8H [facility] PRN Reason: Protocol Last Admin: 12/13/17 07:26 Dose: 100 mls/hr Metronidazole (Flagyl) 500 mg in 100 mls @ 100 mls/hr IVPB Q8 [facility] PRN Reason: Protocol Last Admin: 12/13/17 05:53 Dose: 100 mls/hr Losartan Potassium (Cozaar) 50 mg PO DAILY [facility] Last Admin: 12/13/17 10:00 Dose: 50 mg Morphine Sulfate (Morphine) 2 mg IVP Q4 PRN PRN Reason: Pain, moderate (4-7) Last Admin: 12/13/17 08:25 Dose: 2 mg Nystatin (Nystop Topical Powder) 1 applic TOP BID [facility] Last Admin: 12/13/17 10:01 Dose: 1 applic Oxycodone/Acetaminophen (Percocet 5/325 Mg Tab) 1 tab PO Q6H PRN PRN Reason: Pain, Mild (1-3) Stop: 12/15/17 11:29 Last Admin: 12/12/17 11:56 Dose: 1 tab Fluticasone/Salmeterol (Advair Diskus 250/50) 1 puff INH RQ12 [facility] Last Admin: 12/13/17 07:28 Dose: 1 puff Senna/Docusate Sodium (Senokot S 50 Mg-8.6 Mg) 1 tab PO BID [facility] Last Admin: 12/13/17 10:14 Dose: 1 tab - Labs Labs: 12/13/17 08:30 12/13/17 08:30 PT 14.2 SECONDS (9.7-12.2) H 11/29/17 14:41 INR 1.3 11/29/17 14:41 APTT 19 SECONDS (21-34) L 11/29/17 14:41 - Constitutional Appears: Non-toxic, No Acute Distress - Eye Exam Eye Exam: Normal appearance - ENT Exam ENT Exam: Mucous Membranes Moist - Respiratory Exam Respiratory Exam: absent: Accessory Muscle Use, Respiratory Distress Additional comments: ct with no air leak - Cardiovascular Exam Cardiovascular Exam: REGULAR RHYTHM - GI/Abdominal Exam GI & Abdominal Exam: Soft. absent: Distended, Guarding, Tenderness - Neurological Exam Neurological Exam: Alert, Awake, Oriented x3 - Psychiatric Exam Psychiatric exam: Normal Affect, Normal Mood Assessment and Plan - Assessment and Plan (Free Text) Assessment: 42M s/p left flank wound debridement and left thoracostomy tube Plan: possible d/c of tube tomorrow next vac change monday d/c planning Per CT surgeon - IR biopsy would be preferred given pts habitus and comorbidities additionally unlikely to result in any findings that would change control coordinator d/w Dr Virgen Ragland, PGY3 <Andres New B - Last Filed: 12/15/17 15:22> Objective - Vital Signs/Intake and Output Vital Signs (last 24 hours): Temp Pulse Resp BP Pulse Ox 98.7 F 87 20 124/62 97 12/15/17 14:00 12/15/17 14:30 12/15/17 14:30 12/15/17 14:30 12/15/17 14:30 Intake and Output: 12/15/17 12/15/17 06:59 18:59 Intake Total 550 850 Output Total 925 1275 Balance -375 -425 - Medications Medications: Current Medications Aspirin (Ecotrin) 81 mg PO DAILY [facility] Last Admin: 12/15/17 10:58 Dose: Not Given Clonidine HCl (Catapres) 0.1 mg PO BID [facility] Last Admin: 12/15/17 10:57 Dose: Not Given Furosemide (Lasix) 40 mg PO DAILY [facility] Last Admin: 12/15/17 11:00 Dose: 40 mg Guaifenesin/Dextromethorphan (Robitussin Dm) 15 ml PO Q6H [facility] Last Admin: 12/15/17 11:29 Dose: 15 ml Vancomycin HCl 1,250 mg/ (Sodium Chloride) 250 mls @ 166.6 mls/hr IVPB Q12H [facility] Last Admin: 12/15/17 15:14 Dose: 166.6 mls/hr Piperacillin Sod/Tazobactam Sod (Zosyn 3.375 Gm Iv Premix) 3.375 gm in 50 mls @ 100 mls/hr IVPB Q8H [facility] PRN Reason: Protocol Last Admin: 12/15/17 15:13 Dose: Not Given Metronidazole (Flagyl) 500 mg in 100 mls @ 100 mls/hr IVPB Q8 [facility] PRN Reason: Protocol Last Admin: 12/15/17 13:20 Dose: 100 mls Morphine Sulfate (Morphine) 2 mg IVP Q4 PRN PRN Reason: Pain, moderate (4-7) Last Admin: 12/15/17 11:16 Dose: 2 mg Morphine Sulfate (Morphine) 1 mg IVP Q10M PRN PRN Reason: Pain, severe (8-10) Stop: 12/15/17 16:06 Nystatin (Nystop Topical Powder) 1 applic TOP BID [facility] Last Admin: 12/15/17 11:37 Dose: 1 applic Senna/Docusate Sodium (Senokot S 50 Mg-8.6 Mg) 1 tab PO BID [facility] Last Admin: 12/15/17 11:01 Dose: 1 tab - Labs Labs: 12/15/17 07:09 12/15/17 07:09 PT 14.2 SECONDS (9.7-12.2) H 11/29/17 14:41 INR 1.3 11/29/17 14:41 APTT 19 SECONDS (21-34) L 11/29/17 14:41 Attending/Attestation - Attestation I have personally seen and examined this patient.: Yes I have fully participated in the care of the patient.: Yes I have reviewed all pertinent clinical information, including history, physical exam and plan: Yes Notes (Text): Pt was seen and examined at bedside Agree with above note and assessment Pt with left chest wound vac with left chest tube Wound is improving clinically c.w wound vack c.w current mx Plan d.w pt in detail Risk and benefit explained in detail.
--- NOTE | 2017-12-13 18:53 | CP.PCM.PN ---
Subjective - Date & Time of Evaluation Date of Evaluation: 12/13/17 Time of Evaluation: 07:00 - Subjective Subjective: clinically same Objective - Vital Signs/Intake and Output Vital Signs (last 24 hours): Temp Pulse Resp BP Pulse Ox 98.2 F 90 20 113/69 95 12/13/17 16:00 12/13/17 16:00 12/13/17 16:00 12/13/17 16:00 12/13/17 16:00 Intake and Output: 12/13/17 12/13/17 06:59 18:59 Intake Total 900 1150 Output Total 800 1400 Balance 100 -250 - Medications Medications: Current Medications Acetaminophen (Tylenol 325mg Tab) 650 mg PO Q6 PRN PRN Reason: Fever >100.4 F Last Admin: 12/09/17 10:06 Dose: 650 mg Aspirin (Ecotrin) 81 mg PO DAILY [facility] Last Admin: 12/13/17 10:00 Dose: 81 mg Clonidine HCl (Catapres) 0.1 mg PO BID [facility] Last Admin: 12/13/17 17:05 Dose: 0.1 mg Furosemide (Lasix) 40 mg PO DAILY [facility] Last Admin: 12/13/17 09:59 Dose: 40 mg Guaifenesin/Dextromethorphan (Robitussin Dm) 15 ml PO Q6H [facility] Last Admin: 12/13/17 17:04 Dose: 15 ml Vancomycin HCl 1,250 mg/ (Sodium Chloride) 250 mls @ 166.6 mls/hr IVPB Q12H [facility] Last Admin: 12/13/17 16:21 Dose: 166.6 mls/hr Piperacillin Sod/Tazobactam Sod (Zosyn 3.375 Gm Iv Premix) 3.375 gm in 50 mls @ 100 mls/hr IVPB Q8H [facility] PRN Reason: Protocol Last Admin: 12/13/17 15:22 Dose: 100 mls/hr Metronidazole (Flagyl) 500 mg in 100 mls @ 100 mls/hr IVPB Q8 [facility] PRN Reason: Protocol Last Admin: 12/13/17 13:05 Dose: 100 mls/hr Losartan Potassium (Cozaar) 50 mg PO DAILY [facility] Last Admin: 12/13/17 10:00 Dose: 50 mg Morphine Sulfate (Morphine) 2 mg IVP Q4 PRN PRN Reason: Pain, moderate (4-7) Last Admin: 12/13/17 17:03 Dose: 2 mg Nystatin (Nystop Topical Powder) 1 applic TOP BID [facility] Last Admin: 12/13/17 17:12 Dose: 1 applic Oxycodone/Acetaminophen (Percocet 5/325 Mg Tab) 1 tab PO Q6H PRN PRN Reason: Pain, Mild (1-3) Stop: 12/15/17 11:29 Last Admin: 12/12/17 11:56 Dose: 1 tab Fluticasone/Salmeterol (Advair Diskus 250/50) 1 puff INH RQ12 [facility] Last Admin: 12/13/17 07:28 Dose: 1 puff Senna/Docusate Sodium (Senokot S 50 Mg-8.6 Mg) 1 tab PO BID [facility] Last Admin: 12/13/17 17:02 Dose: 1 tab - Labs Labs: 12/13/17 08:30 12/13/17 08:30 PT 14.2 SECONDS (9.7-12.2) H 11/29/17 14:41 INR 1.3 11/29/17 14:41 APTT 19 SECONDS (21-34) L 11/29/17 14:41 - Constitutional Appears: Well - Head Exam Head Exam: ATRAUMATIC, NORMAL INSPECTION, NORMOCEPHALIC - Eye Exam Eye Exam: EOMI, Normal appearance, PERRL Pupil Exam: NORMAL ACCOMODATION, PERRL - ENT Exam ENT Exam: Mucous Membranes Moist, Normal Exam - Neck Exam Neck Exam: Full ROM, Normal Inspection. absent: Lymphadenopathy - Respiratory Exam Respiratory Exam: Decreased Breath Sounds - Cardiovascular Exam Cardiovascular Exam: REGULAR RHYTHM, +S1, +S2 - GI/Abdominal Exam GI & Abdominal Exam: Soft, Diminished Bowel Sounds - Rectal Exam Rectal Exam: Deferred Assessment and Plan (1) Abdominal pain Status: Acute (2) Abscess Status: Acute (3) Left upper quadrant abdominal swelling Status: Acute (4) Pleural effusion Status: Acute (5) Pneumonia Status: Acute (6) Pulmonary hypertension Status: Acute (7) Bronchitis Status: Acute (8) Bronchospasm Status: Acute (9) Chronic venous stasis dermatitis Status: Acute (10) Cough Status: Acute (11) Influenza-like illness Status: Acute (12) Leg edema Status: Acute (13) Leg swelling Status: Acute (14) Medical assessment Status: Acute (15) Morbid obesity Status: Acute (16) Pedal edema Status: Acute (17) Reactive airway disease Status: Acute (18) Rhabdomyolysis Status: Acute (19) Tinea pedis Status: Acute (20) Upper respiratory infection Status: Acute (21) Uvulitis Status: Acute
--- NOTE | 2017-12-13 20:19 | CP.PCM.PN ---
Subjective - Date & Time of Evaluation Date of Evaluation: 12/13/17 Time of Evaluation: 20:19 - Subjective Subjective: afebrile. sitting in chair. offers no new complaints SURGERY AND /CT -SURGERY F/U NOTED- NOT CONTEMPLATING RE-BIOPSY?IR YIELD POOR. PT DOING BETTER. PT STATES HE IS NOT COUGHING MUCH . SPUTUM IS CLEAR . LABS REVIEWED. LDH N-435. QFT GOLD TB TEST -VE ALL CULTURES -VE (PLEURAL./ ABDOMEN WALL ) Objective - Vital Signs/Intake and Output Vital Signs (last 24 hours): Temp Pulse Resp BP Pulse Ox 98.2 F 90 20 113/69 95 12/13/17 16:00 12/13/17 16:00 12/13/17 16:00 12/13/17 16:00 12/13/17 16:00 Intake and Output: 12/13/17 12/14/17 18:59 06:59 Intake Total 1150 Output Total 1400 Balance -250 - Medications Medications: Current Medications Acetaminophen (Tylenol 325mg Tab) 650 mg PO Q6 PRN PRN Reason: Fever >100.4 F Last Admin: 12/09/17 10:06 Dose: 650 mg Aspirin (Ecotrin) 81 mg PO DAILY [facility] Last Admin: 12/13/17 10:00 Dose: 81 mg Clonidine HCl (Catapres) 0.1 mg PO BID [facility] Last Admin: 12/13/17 17:05 Dose: 0.1 mg Furosemide (Lasix) 40 mg PO DAILY [facility] Last Admin: 12/13/17 09:59 Dose: 40 mg Guaifenesin/Dextromethorphan (Robitussin Dm) 15 ml PO Q6H [facility] Last Admin: 12/13/17 17:04 Dose: 15 ml Vancomycin HCl 1,250 mg/ (Sodium Chloride) 250 mls @ 166.6 mls/hr IVPB Q12H [facility] Last Admin: 12/13/17 16:21 Dose: 166.6 mls/hr Piperacillin Sod/Tazobactam Sod (Zosyn 3.375 Gm Iv Premix) 3.375 gm in 50 mls @ 100 mls/hr IVPB Q8H [facility] PRN Reason: Protocol Last Admin: 12/13/17 15:22 Dose: 100 mls/hr Metronidazole (Flagyl) 500 mg in 100 mls @ 100 mls/hr IVPB Q8 [facility] PRN Reason: Protocol Last Admin: 12/13/17 13:05 Dose: 100 mls/hr Losartan Potassium (Cozaar) 50 mg PO DAILY [facility] Last Admin: 12/13/17 10:00 Dose: 50 mg Morphine Sulfate (Morphine) 2 mg IVP Q4 PRN PRN Reason: Pain, moderate (4-7) Last Admin: 12/13/17 17:03 Dose: 2 mg Nystatin (Nystop Topical Powder) 1 applic TOP BID [facility] Last Admin: 12/13/17 17:12 Dose: 1 applic Oxycodone/Acetaminophen (Percocet 5/325 Mg Tab) 1 tab PO Q6H PRN PRN Reason: Pain, Mild (1-3) Stop: 12/15/17 11:29 Last Admin: 12/12/17 11:56 Dose: 1 tab Fluticasone/Salmeterol (Advair Diskus 250/50) 1 puff INH RQ12 [facility] Last Admin: 12/13/17 19:29 Dose: 1 puff Senna/Docusate Sodium (Senokot S 50 Mg-8.6 Mg) 1 tab PO BID [facility] Last Admin: 12/13/17 17:02 Dose: 1 tab - Labs Labs: 12/13/17 08:30 12/13/17 08:30 PT 14.2 SECONDS (9.7-12.2) H 11/29/17 14:41 INR 1.3 11/29/17 14:41 APTT 19 SECONDS (21-34) L 11/29/17 14:41 - Constitutional Appears: No Acute Distress - Head Exam Head Exam: NORMAL INSPECTION - Eye Exam Eye Exam: EOMI, PERRL - ENT Exam ENT Exam: Normal Oropharynx - Neck Exam Neck Exam: Normal Inspection - Respiratory Exam Respiratory Exam: Decreased Breath Sounds Additional comments: LEFT. CT-IN PLACE TO WATER-SEAL. LT.ABDOMINAL DRAINAGE TO WOUND VAC. - Cardiovascular Exam Cardiovascular Exam: REGULAR RHYTHM, +S1, +S2 - GI/Abdominal Exam GI & Abdominal Exam: Soft. absent: Tenderness - Extremities Exam Extremities Exam: absent: Calf Tenderness, Pedal Edema - Neurological Exam Neurological Exam: Alert, Awake, CN II-XII Intact, Oriented x3 - Psychiatric Exam Psychiatric exam: Normal Mood - Skin Skin Exam: Normal Color, Warm Assessment and Plan (1) Pneumonia Status: Acute (2) Left upper quadrant abdominal swelling Status: Acute (3) Bronchitis Status: Acute (4) Morbid obesity Status: Acute - Assessment and Plan (Free Text) Plan: F/U CXR IN AM.TO EVALUATE SIZE OF LT. PLEURAL EFFUSION CONTINUE IV ZOSYN 3.375 EVERY 8 HOURLY 11/15/17-4WKS TODAY CONTINUE IV VANCOMYCIN 1250 MG iv EVERY 12 HOURLY FOR mrsa STREP COVERAGE .-27 DAYS ON IV FLAGYL 500MG IV Q8HRLY FOR ANAEROBIC COVERAGE. 12/01/17 . F/U CULTURES AND SPECIAL STAINS (-VE SO FAR ) WILL CONSIDER ORAL ANTIBIOTICS -ON DISCHARGE PO AUGMENTIN 875MG PO BID X 2WKS AND PO BACTRIM 1DS PO BID X 2WKS. F/U OPD CLINIC WITH REPEAT CT CHEST /ABD AND PELVIS IN 2-[address]/WOUND VAC CARE PER SURGERY PER CONSULTANTS.
[2017-12-14] MEDS: Morphine 4 MG/ML VIAL IVP PRN ×6 (01:07→22:22)
[2017-12-14] MEDS: guaiFENesin DM 100 mg-10 mg/5 ml UD PO SCH ×3 (05:30→18:01)
[2017-12-14] MEDS: metroNIDAZOLE IV 500 mg/100 ml 500 MG/100 ML BAG IVPB SCH ×3 (05:30→21:43)
[2017-12-14] MEDS: Piperacill/Tazo 3.375gm in Dex 3.375 GM/50 ML BAG IVPB SCH ×3 (06:40→21:50)
--- NOTE | 2017-12-14 07:03 | RAD ---
HISTORY: pneumonia/left pleural effussion COMPARISON: Portable chest 12/07/2017. FINDINGS: LUNGS: Left chest tube unchanged in position. No pneumothorax bilaterally. There is no pleural effusion is difficult to exclude as well as at the right. Right PICC unchanged in position. Bilateral inferior pulmonary airspace disease persists as well as the medial right base. PLEURA: As above. CARDIOVASCULAR: Cardiac size appears stable. No definite pulmonary vascular derangement. OSSEOUS STRUCTURES: No significant abnormalities. VISUALIZED UPPER ABDOMEN: Normal. OTHER FINDINGS: None. IMPRESSION: Limited patchy airspace disease remains at both bases as described above with trace bilateral pleural effusions again suggested. Left chest tube unchanged in position. No pneumothorax.
[2017-12-14] MEDS: Albuterol-Ipratrop 3 mg / 0.5 (3 ml) UD INH PRN (07:35)
[2017-12-14] MEDS: Fluticasone-Salmeterol 250-50mcg Diskus INH SCH (07:35)
[2017-12-14 08:05] LABS: ALB/GLOB RATIO 1.2 (1.0-2.1); BILIRUBIN,DIRECT 0.2 mg/dL (0.0-0.4)
[2017-12-14] MEDS: Docusate-Senna 50 mg-8.6 mg Tab PO SCH ×2 (09:39→20:00)
--- NOTE | 2017-12-14 10:32 | CP.PCM.PN ---
Subjective - Date & Time of Evaluation Date of Evaluation: 12/14/17 Time of Evaluation: 07:00 - Subjective Subjective: clinically same Objective - Vital Signs/Intake and Output Vital Signs (last 24 hours): Temp Pulse Resp BP Pulse Ox 98.1 F 94 H 20 112/70 95 12/14/17 08:16 12/14/17 08:16 12/14/17 08:16 12/14/17 09:35 12/14/17 08:16 Intake and Output: 12/14/17 12/14/17 06:59 18:59 Intake Total 1640 Output Total 1150 Balance 490 - Medications Medications: Current Medications Acetaminophen (Tylenol 325mg Tab) 650 mg PO Q6 PRN PRN Reason: Fever >100.4 F Last Admin: 12/09/17 10:06 Dose: 650 mg Aspirin (Ecotrin) 81 mg PO DAILY [facility] Last Admin: 12/14/17 09:39 Dose: 81 mg Clonidine HCl (Catapres) 0.1 mg PO BID [facility] Last Admin: 12/14/17 09:35 Dose: 0.1 mg Furosemide (Lasix) 40 mg PO DAILY [facility] Last Admin: 12/14/17 09:35 Dose: 40 mg Guaifenesin/Dextromethorphan (Robitussin Dm) 15 ml PO Q6H [facility] Last Admin: 12/14/17 05:30 Dose: 15 ml Vancomycin HCl 1,250 mg/ (Sodium Chloride) 250 mls @ 166.6 mls/hr IVPB Q12H [facility] Last Admin: 12/14/17 03:07 Dose: 166.6 mls/hr Piperacillin Sod/Tazobactam Sod (Zosyn 3.375 Gm Iv Premix) 3.375 gm in 50 mls @ 100 mls/hr IVPB Q8H [facility] PRN Reason: Protocol Last Admin: 12/14/17 06:40 Dose: 100 mls/hr Metronidazole (Flagyl) 500 mg in 100 mls @ 100 mls/hr IVPB Q8 [facility] PRN Reason: Protocol Last Admin: 12/14/17 05:30 Dose: 100 mls/hr Losartan Potassium (Cozaar) 50 mg PO DAILY [facility] Last Admin: 12/14/17 09:35 Dose: 50 mg Morphine Sulfate (Morphine) 2 mg IVP Q4 PRN PRN Reason: Pain, moderate (4-7) Last Admin: 12/14/17 09:35 Dose: 2 mg Nystatin (Nystop Topical Powder) 1 applic TOP BID [facility] Last Admin: 12/14/17 09:39 Dose: 1 applic Oxycodone/Acetaminophen (Percocet 5/325 Mg Tab) 1 tab PO Q6H PRN PRN Reason: Pain, Mild (1-3) Stop: 12/15/17 11:29 Last Admin: 12/12/17 11:56 Dose: 1 tab Fluticasone/Salmeterol (Advair Diskus 250/50) 1 puff INH RQ12 [facility] Last Admin: 12/14/17 07:35 Dose: 1 puff Senna/Docusate Sodium (Senokot S 50 Mg-8.6 Mg) 1 tab PO BID [facility] Last Admin: 12/14/17 09:39 Dose: 1 tab - Labs Labs: 12/13/17 08:30 12/13/17 08:30 PT 14.2 SECONDS (9.7-12.2) H 11/29/17 14:41 INR 1.3 11/29/17 14:41 APTT 19 SECONDS (21-34) L 11/29/17 14:41 - Constitutional Appears: Well - Head Exam Head Exam: ATRAUMATIC, NORMAL INSPECTION, NORMOCEPHALIC - Eye Exam Eye Exam: EOMI, Normal appearance, PERRL Pupil Exam: NORMAL ACCOMODATION, PERRL - ENT Exam ENT Exam: Mucous Membranes Moist, Normal Exam - Neck Exam Neck Exam: Full ROM, Normal Inspection. absent: Lymphadenopathy - Respiratory Exam Respiratory Exam: Decreased Breath Sounds - Cardiovascular Exam Cardiovascular Exam: REGULAR RHYTHM, +S1, +S2 - GI/Abdominal Exam GI & Abdominal Exam: Soft, Diminished Bowel Sounds - Rectal Exam Rectal Exam: Deferred Assessment and Plan (1) Abdominal pain Status: Acute (2) Abscess Status: Acute (3) Left upper quadrant abdominal swelling Status: Acute (4) Pleural effusion Status: Acute (5) Pneumonia Status: Acute (6) Pulmonary hypertension Status: Acute (7) Bronchitis Status: Acute (8) Bronchospasm Status: Acute (9) Chronic venous stasis dermatitis Status: Acute (10) Cough Status: Acute (11) Influenza-like illness Status: Acute (12) Leg edema Status: Acute (13) Leg swelling Status: Acute (14) Medical assessment Status: Acute (15) Morbid obesity Status: Acute (16) Pedal edema Status: Acute (17) Reactive airway disease Status: Acute (18) Rhabdomyolysis Status: Acute (19) Tinea pedis Status: Acute (20) Upper respiratory infection Status: Acute (21) Uvulitis Status: Acute
--- NOTE | 2017-12-14 11:02 | CP.PCM.PN ---
<Yahir Ragland Julita - Last Filed: 12/14/17 11:04> Subjective - Date & Time of Evaluation Date of Evaluation: 12/14/17 Time of Evaluation: 10:59 - Subjective Subjective: Patient s&e at bedside, QUINCY CARVALHO. Patient wound vac in place with good seal and output. Chest tube in place, dressing C/D/I. The patient currently denies n/ v/f/c, constipation, diarrhea, chest pain, shortness of breath. Remains anxious about his condition, concerns addressed on rounds. Objective - Vital Signs/Intake and Output Vital Signs (last 24 hours): Temp Pulse Resp BP Pulse Ox 98.1 F 94 H 20 112/70 95 12/14/17 08:16 12/14/17 08:16 12/14/17 08:16 12/14/17 09:35 12/14/17 08:16 Intake and Output: 12/14/17 12/14/17 06:59 18:59 Intake Total 1640 Output Total 1150 Balance 490 - Medications Medications: Current Medications Acetaminophen (Tylenol 325mg Tab) 650 mg PO Q6 PRN PRN Reason: Fever >100.4 F Last Admin: 12/09/17 10:06 Dose: 650 mg Aspirin (Ecotrin) 81 mg PO DAILY [facility] Last Admin: 12/14/17 09:39 Dose: 81 mg Clonidine HCl (Catapres) 0.1 mg PO BID [facility] Last Admin: 12/14/17 09:35 Dose: 0.1 mg Furosemide (Lasix) 40 mg PO DAILY [facility] Last Admin: 12/14/17 09:35 Dose: 40 mg Guaifenesin/Dextromethorphan (Robitussin Dm) 15 ml PO Q6H [facility] Last Admin: 12/14/17 05:30 Dose: 15 ml Vancomycin HCl 1,250 mg/ (Sodium Chloride) 250 mls @ 166.6 mls/hr IVPB Q12H [facility] Last Admin: 12/14/17 03:07 Dose: 166.6 mls/hr Piperacillin Sod/Tazobactam Sod (Zosyn 3.375 Gm Iv Premix) 3.375 gm in 50 mls @ 100 mls/hr IVPB Q8H [facility] PRN Reason: Protocol Last Admin: 12/14/17 06:40 Dose: 100 mls/hr Metronidazole (Flagyl) 500 mg in 100 mls @ 100 mls/hr IVPB Q8 [facility] PRN Reason: Protocol Last Admin: 12/14/17 05:30 Dose: 100 mls/hr Losartan Potassium (Cozaar) 50 mg PO DAILY [facility] Last Admin: 12/14/17 09:35 Dose: 50 mg Morphine Sulfate (Morphine) 2 mg IVP Q4 PRN PRN Reason: Pain, moderate (4-7) Last Admin: 12/14/17 09:35 Dose: 2 mg Nystatin (Nystop Topical Powder) 1 applic TOP BID [facility] Last Admin: 12/14/17 09:39 Dose: 1 applic Oxycodone/Acetaminophen (Percocet 5/325 Mg Tab) 1 tab PO Q6H PRN PRN Reason: Pain, Mild (1-3) Stop: 12/15/17 11:29 Last Admin: 12/12/17 11:56 Dose: 1 tab Fluticasone/Salmeterol (Advair Diskus 250/50) 1 puff INH RQ12 [facility] Last Admin: 12/14/17 07:35 Dose: 1 puff Senna/Docusate Sodium (Senokot S 50 Mg-8.6 Mg) 1 tab PO BID [facility] Last Admin: 12/14/17 09:39 Dose: 1 tab - Labs Labs: 12/13/17 08:30 12/13/17 08:30 PT 14.2 SECONDS (9.7-12.2) H 11/29/17 14:41 INR 1.3 11/29/17 14:41 APTT 19 SECONDS (21-34) L 11/29/17 14:41 - Constitutional Appears: Well, Non-toxic, No Acute Distress - Head Exam Head Exam: ATRAUMATIC, NORMAL INSPECTION - Eye Exam Eye Exam: Normal appearance - ENT Exam ENT Exam: Mucous Membranes Moist - Respiratory Exam Respiratory Exam: NORMAL BREATHING PATTERN. absent: Respiratory Distress - GI/Abdominal Exam GI & Abdominal Exam: Soft. absent: Guarding, Rigid - Neurological Exam Neurological Exam: Alert, Awake, Oriented x3 - Psychiatric Exam Psychiatric exam: Anxious, Normal Affect - Skin Skin Exam: Dry, Normal Color, Warm Assessment and Plan - Assessment and Plan (Free Text) Assessment: 42M s/p left flank wound debridement and left thoracostomy tube Plan: -wound vac to be changed on 12/15 -Possible OR on monday for interval debridement, wound vac change, and tissue debridement if clinically necessary -continue pain control -encourage ambulation -will discuss with attending Yahir Ragland, PGY-3 <Andres New - Last Filed: 12/15/17 15:37> Objective - Vital Signs/Intake and Output Vital Signs (last 24 hours): Temp Pulse Resp BP Pulse Ox 98.5 F 83 16 128/72 97 12/15/17 14:45 12/15/17 14:45 12/15/17 14:45 12/15/17 14:45 12/15/17 14:45 Intake and Output: 12/15/17 12/15/17 06:59 18:59 Intake Total 550 850 Output Total 923 6655 Balance -375 -425 - Medications Medications: Current Medications Aspirin (Ecotrin) 81 mg PO DAILY [facility] Last Admin: 12/15/17 10:58 Dose: Not Given Clonidine HCl (Catapres) 0.1 mg PO BID [facility] Last Admin: 12/15/17 10:57 Dose: Not Given Furosemide (Lasix) 40 mg PO DAILY [facility] Last Admin: 12/15/17 11:00 Dose: 40 mg Guaifenesin/Dextromethorphan (Robitussin Dm) 15 ml PO Q6H [facility] Last Admin: 12/15/17 11:29 Dose: 15 ml Vancomycin HCl 1,250 mg/ (Sodium Chloride) 250 mls @ 166.6 mls/hr IVPB Q12H [facility] Last Admin: 12/15/17 15:14 Dose: 166.6 mls/hr Piperacillin Sod/Tazobactam Sod (Zosyn 3.375 Gm Iv Premix) 3.375 gm in 50 mls @ 100 mls/hr IVPB Q8H [facility] PRN Reason: Protocol Last Admin: 12/15/17 15:13 Dose: Not Given Metronidazole (Flagyl) 500 mg in 100 mls @ 100 mls/hr IVPB Q8 [facility] PRN Reason: Protocol Last Admin: 12/15/17 13:20 Dose: 100 mls Morphine Sulfate (Morphine) 2 mg IVP Q4 PRN PRN Reason: Pain, moderate (4-7) Last Admin: 12/15/17 11:16 Dose: 2 mg Morphine Sulfate (Morphine) 1 mg IVP Q10M PRN PRN Reason: Pain, severe (8-10) Stop: 12/15/17 16:06 Last Admin: 12/15/17 14:31 Dose: 1 mg Nystatin (Nystop Topical Powder) 1 applic TOP BID [facility] Last Admin: 12/15/17 11:37 Dose: 1 applic Senna/Docusate Sodium (Senokot S 50 Mg-8.6 Mg) 1 tab PO BID [facility] Last Admin: 12/15/17 11:01 Dose: 1 tab - Labs Labs: 12/15/17 07:09 12/15/17 07:09 PT 14.2 SECONDS (9.7-12.2) H 11/29/17 14:41 INR 1.3 11/29/17 14:41 APTT 19 SECONDS (21-34) L 11/29/17 14:41 Attending/Attestation - Attestation I have personally seen and examined this patient.: Yes I have fully participated in the care of the patient.: Yes I have reviewed all pertinent clinical information, including history, physical exam and plan: Yes Notes (Text): Pt was seen and examined at bedside Agree with above note and assessment As per ID, there is need for further tissue sample for Mycobacterium, Nocardia and actinomycosis OR tomorrow for Tissue biopsy from wound and wound vac change consent c.w current mx Plan d.w pt in detail Risk and benefit explained in detail.
--- NOTE | 2017-12-14 22:38 | CP.PCM.PN ---
Subjective - Date & Time of Evaluation Date of Evaluation: 12/14/17 Time of Evaluation: 22:38 - Subjective Subjective: AFEBRILE. C/O RASH IN GROINS/AND BACK ?MONILIASIS SURGERY F/U NOTED. CXR 12/13 NOTED.-LEFT CHEST TUBE. Limited patchy airspace disease remains both bases With trace bilateral pleural effusions. Objective - Vital Signs/Intake and Output Vital Signs (last 24 hours): Temp Pulse Resp BP Pulse Ox 97.5 F L 86 20 107/67 96 12/14/17 15:52 12/14/17 15:52 12/14/17 15:52 12/14/17 15:52 12/14/17 15:52 Intake and Output: 12/14/17 12/15/17 18:59 06:59 Intake Total 800 Balance 800 - Medications Medications: Current Medications Acetaminophen (Tylenol 325mg Tab) 650 mg PO Q6 PRN PRN Reason: Fever >100.4 F Last Admin: 12/09/17 10:06 Dose: 650 mg Aspirin (Ecotrin) 81 mg PO DAILY [facility] Last Admin: 12/14/17 09:39 Dose: 81 mg Clonidine HCl (Catapres) 0.1 mg PO BID [facility] Last Admin: 12/14/17 18:01 Dose: 0.1 mg Furosemide (Lasix) 40 mg PO DAILY [facility] Last Admin: 12/14/17 09:35 Dose: 40 mg Guaifenesin/Dextromethorphan (Robitussin Dm) 15 ml PO Q6H [facility] Last Admin: 12/14/17 18:01 Dose: 15 ml Vancomycin HCl 1,250 mg/ (Sodium Chloride) 250 mls @ 166.6 mls/hr IVPB Q12H [facility] Last Admin: 12/14/17 15:50 Dose: 166.6 mls/hr Piperacillin Sod/Tazobactam Sod (Zosyn 3.375 Gm Iv Premix) 3.375 gm in 50 mls @ 100 mls/hr IVPB Q8H [facility] PRN Reason: Protocol Last Admin: 12/14/17 21:50 Dose: 100 mls/hr Metronidazole (Flagyl) 500 mg in 100 mls @ 100 mls/hr IVPB Q8 [facility] PRN Reason: Protocol Last Admin: 12/14/17 21:43 Dose: 100 mls/hr Morphine Sulfate (Morphine) 2 mg IVP Q4 PRN PRN Reason: Pain, moderate (4-7) Last Admin: 12/14/17 22:22 Dose: 2 mg Nystatin (Nystop Topical Powder) 1 applic TOP BID [facility] Last Admin: 12/14/17 18:00 Dose: 1 applic Oxycodone/Acetaminophen (Percocet 5/325 Mg Tab) 1 tab PO Q6H PRN PRN Reason: Pain, Mild (1-3) Stop: 12/15/17 11:29 Last Admin: 12/12/17 11:56 Dose: 1 tab Senna/Docusate Sodium (Senokot S 50 Mg-8.6 Mg) 1 tab PO BID [facility] Last Admin: 12/14/17 20:00 Dose: 1 tab - Labs Labs: 12/13/17 08:30 12/13/17 08:30 PT 14.2 SECONDS (9.7-12.2) H 11/29/17 14:41 INR 1.3 11/29/17 14:41 APTT 19 SECONDS (21-34) L 11/29/17 14:41 - Constitutional Appears: No Acute Distress - Head Exam Head Exam: NORMAL INSPECTION - Eye Exam Eye Exam: EOMI, PERRL - ENT Exam ENT Exam: Normal Oropharynx - Neck Exam Neck Exam: Normal Inspection - Respiratory Exam Respiratory Exam: Decreased Breath Sounds (b/l bases left CT IN PLACE) - Cardiovascular Exam Cardiovascular Exam: REGULAR RHYTHM, +S1, +S2 - GI/Abdominal Exam GI & Abdominal Exam: Soft, Normal Bowel Sounds Additional comments: +VE DRAINAGE TUBE -WOUND VAC. - Extremities Exam Extremities Exam: Pedal Edema. absent: Calf Tenderness - Neurological Exam Neurological Exam: Awake, Normal Gait, Oriented x3 - Psychiatric Exam Psychiatric exam: Normal Mood - Skin Skin Exam: Rash (B/L [place]), Warm Assessment and Plan (1) Pneumonia Status: Acute (2) Left upper quadrant abdominal swelling Status: Acute (3) Bronchitis Status: Acute (4) Morbid obesity Status: Acute - Assessment and Plan (Free Text) Plan: CONTINUE IV ZOSYN 3.375 EVERY 8 HOURLY 11/15/17-4WKS 12/13/17 CONTINUE IV VANCOMYCIN 1250 MG iv EVERY 12 HOURLY FOR mrsa STREP COVERAGE .-28 DAYS ON IV FLAGYL 500MG IV Q8HRLY FOR ANAEROBIC COVERAGE. 12/01/17 . -wound vac to be changed on 12/15 PER SURGERY. -FOR OR MONDAY FOR DEBRIDEMENT,WOUND VAC CHANGE.
[2017-12-15] MEDS: guaiFENesin DM 100 mg-10 mg/5 ml UD PO SCH ×4 (00:28→17:28)
[2017-12-15] MEDS: Morphine 4 MG/ML VIAL IVP PRN ×5 (03:15→21:31)
[2017-12-15] MEDS: metroNIDAZOLE IV 500 mg/100 ml 500 MG/100 ML BAG IVPB SCH ×3 (05:15→21:30)
[2017-12-15] MEDS: Piperacill/Tazo 3.375gm in Dex 3.375 GM/50 ML BAG IVPB SCH ×3 (06:27→22:49)
[2017-12-15 07:30] LABS: HEMOGLOBIN 10.5 g/dL (12.0-18.0); MEAN CELL VOLUME 81.9 fL (80.0-94.0); MEAN CORPUSCULAR HEMOGLOBIN 27.2 pg (27.0-31.0); MEAN CORPUSCULAR HGB CONC 33.2 g/dL (33.0-37.0); MEAN PLATELET VOLUME 7.1 fL (7.2-11.7); RBC 3.87 Mil/uL (4.40-5.90); RED CELL DISTRIBUTION WIDTH 16.5 % (11.5-14.5); WHITE BLOOD COUNT 9.5 K/uL (4.8-10.8)
[2017-12-15 07:38] LABS: ALBUMIN 3.2 g/dL (3.5-5.0); ALT/SGPT 24 U/L (21-72); AST/SGOT 19 U/L (17-59); BLOOD UREA NITROGEN 10 mg/dL (9-20); CALCIUM 7.3 mg/dl (8.6-10.4); GFR AFRICAN-AMERICAN > 60; GFR NON-AFRICAN AMERICAN > 60
[2017-12-15] MEDS: Docusate-Senna 50 mg-8.6 mg Tab PO SCH ×2 (11:01→18:05)
[2017-12-15] MEDS ORDERED: Lidocaine/Epinephrine 1% 1:100000 10 ML IJ ONE (12:39)
[2017-12-15] MEDS ORDERED: Bupivacaine 0.25% Inj(30mL) ONE (12:39)
[2017-12-15] MEDS ORDERED: Midazolam 2 MG/2 ML VIAL ONE ×2 (12:57→13:24)
[2017-12-15] MEDS ORDERED: Propofol 10 mg/ml Inj (20 ML) ONE (12:59)
[2017-12-15] MEDS ORDERED: Ketamine 50 mg/ml Inj (10 ml) ONE (13:13)
--- NOTE | 2017-12-15 14:00 | PCM.SURG1 ---
Surgeon's Initial Post Op Note - Surgeon's Notes Surgeon: Dr New Technical Training Manager: Dr Ragland PGY3 Type of Anesthesia: General IV Pre-Operative Diagnosis: abdominal wound vac change Operative Findings: as above Post-Operative Diagnosis: as above Operation Performed: abdominal wound vac change. tissue biopsy of abdominal wound Specimen/Specimens Removed: biopsy x 3 Estimated Blood Loss: EBL {In ML}: 10 Blood Products Given: N/A Drains Used: Chest Tubes, Wound Vac Post-Op Condition: Good Date of Surgery/Procedure: 12/15/17 Time of Surgery/Procedure: 14:00
--- NOTE | 2017-12-15 14:32 | CP.PCM.PN ---
Subjective - Date & Time of Evaluation Date of Evaluation: 12/15/17 Time of Evaluation: 07:00 - Subjective Subjective: clinically same Objective - Vital Signs/Intake and Output Vital Signs (last 24 hours): Temp Pulse Resp BP Pulse Ox 97.9 F 77 20 99/44 L 98 12/15/17 08:08 12/15/17 08:08 12/15/17 08:08 12/15/17 11:00 12/15/17 08:08 Intake and Output: 12/15/17 12/15/17 06:59 18:59 Intake Total 550 750 Output Total 925 675 Balance -375 75 - Medications Medications: Current Medications Aspirin (Ecotrin) 81 mg PO DAILY [facility] Last Admin: 12/15/17 10:58 Dose: Not Given Clonidine HCl (Catapres) 0.1 mg PO BID [facility] Last Admin: 12/15/17 10:57 Dose: Not Given Furosemide (Lasix) 40 mg PO DAILY [facility] Last Admin: 12/15/17 11:00 Dose: 40 mg Guaifenesin/Dextromethorphan (Robitussin Dm) 15 ml PO Q6H [facility] Last Admin: 12/15/17 11:29 Dose: 15 ml Vancomycin HCl 1,250 mg/ (Sodium Chloride) 250 mls @ 166.6 mls/hr IVPB Q12H [facility] Last Admin: 12/15/17 03:01 Dose: 166.6 mls/hr Piperacillin Sod/Tazobactam Sod (Zosyn 3.375 Gm Iv Premix) 3.375 gm in 50 mls @ 100 mls/hr IVPB Q8H [facility] PRN Reason: Protocol Last Admin: 12/15/17 06:27 Dose: 100 mls/hr Metronidazole (Flagyl) 500 mg in 100 mls @ 100 mls/hr IVPB Q8 [facility] PRN Reason: Protocol Last Admin: 12/15/17 13:20 Dose: 100 mls Morphine Sulfate (Morphine) 2 mg IVP Q4 PRN PRN Reason: Pain, moderate (4-7) Last Admin: 12/15/17 11:16 Dose: 2 mg Morphine Sulfate (Morphine) 1 mg IVP Q10M PRN PRN Reason: Pain, severe (8-10) Stop: 12/15/17 16:06 Nystatin (Nystop Topical Powder) 1 applic TOP BID [facility] Last Admin: 12/15/17 11:37 Dose: 1 applic Senna/Docusate Sodium (Senokot S 50 Mg-8.6 Mg) 1 tab PO BID [facility] Last Admin: 12/15/17 11:01 Dose: 1 tab - Labs Labs: 12/15/17 07:09 12/15/17 07:09 PT 14.2 SECONDS (9.7-12.2) H 11/29/17 14:41 INR 1.3 11/29/17 14:41 APTT 19 SECONDS (21-34) L 11/29/17 14:41 - Constitutional Appears: Well - Head Exam Head Exam: ATRAUMATIC, NORMAL INSPECTION, NORMOCEPHALIC - Eye Exam Eye Exam: EOMI, Normal appearance, PERRL Pupil Exam: NORMAL ACCOMODATION, PERRL - ENT Exam ENT Exam: Mucous Membranes Moist, Normal Exam - Neck Exam Neck Exam: Full ROM, Normal Inspection. absent: Lymphadenopathy - Respiratory Exam Respiratory Exam: Decreased Breath Sounds - Cardiovascular Exam Cardiovascular Exam: REGULAR RHYTHM, +S1, +S2 - GI/Abdominal Exam GI & Abdominal Exam: Soft, Diminished Bowel Sounds - Rectal Exam Rectal Exam: Deferred Assessment and Plan (1) Abdominal pain Status: Acute (2) Abscess Status: Acute (3) Left upper quadrant abdominal swelling Status: Acute (4) Pleural effusion Status: Acute (5) Pneumonia Status: Acute (6) Pulmonary hypertension Status: Acute (7) Bronchitis Status: Acute (8) Bronchospasm Status: Acute (9) Chronic venous stasis dermatitis Status: Acute (10) Cough Status: Acute (11) Influenza-like illness Status: Acute (12) Leg edema Status: Acute (13) Leg swelling Status: Acute (14) Medical assessment Status: Acute (15) Morbid obesity Status: Acute (16) Pedal edema Status: Acute (17) Reactive airway disease Status: Acute (18) Rhabdomyolysis Status: Acute (19) Tinea pedis Status: Acute (20) Upper respiratory infection Status: Acute (21) Uvulitis Status: Acute - Assessment and Plan (Free Text) Plan: Continue vancomycin Continue Flagyl Continue Zosyn Follow-up with the surgeons Status post abdominal wound biopsy Local wound care and VAC changes as per surgical team Nystatin powder Follow-up with infectious disease Dr. Rene ronquillo
--- NOTE | 2017-12-15 21:56 | CP.PCM.PN ---
Subjective - Date & Time of Evaluation Date of Evaluation: 12/15/17 Time of Evaluation: 21:56 - Subjective Subjective: S/P OR TODAY. FINDINGS NOTED. Operation Performed: abdominal wound vac change. 3-tissue biopsy of abdominal wound OBTAINED. DISCUSSED WITH SURGICAL TEAM. APPROPRIATE CULTURES AND STAINS SENT. ON ANTIBIOTICS Objective - Vital Signs/Intake and Output Vital Signs (last 24 hours): Temp Pulse Resp BP Pulse Ox 97.3 F L 84 20 115/77 94 L 12/15/17 15:00 12/15/17 15:00 12/15/17 15:00 12/15/17 15:00 12/15/17 15:00 Intake and Output: 12/15/17 12/16/17 18:59 06:59 Intake Total 850 Output Total 1275 Balance -425 - Medications Medications: Current Medications Aspirin (Ecotrin) 81 mg PO DAILY [facility] Last Admin: 12/15/17 10:58 Dose: Not Given Clonidine HCl (Catapres) 0.1 mg PO BID [facility] Last Admin: 12/15/17 17:29 Dose: 0.1 mg Furosemide (Lasix) 40 mg PO DAILY [facility] Last Admin: 12/15/17 11:00 Dose: 40 mg Guaifenesin/Dextromethorphan (Robitussin Dm) 15 ml PO Q6H [facility] Last Admin: 12/15/17 17:28 Dose: 15 ml Vancomycin HCl 1,250 mg/ (Sodium Chloride) 250 mls @ 166.6 mls/hr IVPB Q12H [facility] Last Admin: 12/15/17 15:14 Dose: 166.6 mls/hr Metronidazole (Flagyl) 500 mg in 100 mls @ 100 mls/hr IVPB Q8 [facility] PRN Reason: Protocol Last Admin: 12/15/17 21:30 Dose: 100 mls/hr Piperacillin Sod/Tazobactam Sod (Zosyn 3.375 Gm Iv Premix) 3.375 gm in 50 mls @ 100 mls/hr IVPB Q8H [facility] PRN Reason: Protocol Morphine Sulfate (Morphine) 2 mg IVP Q4 PRN PRN Reason: Pain, Mild (1-3) Last Admin: 12/15/17 21:31 Dose: 2 mg Nystatin (Nystop Topical Powder) 1 applic TOP BID [facility] Last Admin: 12/15/17 17:31 Dose: 1 applic Senna/Docusate Sodium (Senokot S 50 Mg-8.6 Mg) 1 tab PO BID [facility] Last Admin: 12/15/17 18:05 Dose: 1 tab - Labs Labs: 12/15/17 07:09 12/15/17 07:09 PT 14.2 SECONDS (9.7-12.2) H 11/29/17 14:41 INR 1.3 11/29/17 14:41 APTT 19 SECONDS (21-34) L 11/29/17 14:41 - Constitutional Appears: No Acute Distress - Head Exam Head Exam: NORMAL INSPECTION - Eye Exam Eye Exam: EOMI, PERRL - ENT Exam ENT Exam: Normal Oropharynx - Neck Exam Neck Exam: Normal Inspection - Respiratory Exam Respiratory Exam: Decreased Breath Sounds (LT SIDE . +VE LTCT TO WATER SEAL.) - Cardiovascular Exam Cardiovascular Exam: REGULAR RHYTHM, +S1, +S2 - GI/Abdominal Exam GI & Abdominal Exam: Soft, Normal Bowel Sounds (CT TO WOUND VAC.) - Extremities Exam Extremities Exam: Pedal Edema. absent: Calf Tenderness - Neurological Exam Neurological Exam: Awake, Normal Gait, Oriented x3 - Psychiatric Exam Psychiatric exam: Normal Mood - Skin Skin Exam: Normal Color, Warm Assessment and Plan (1) Pneumonia Status: Acute (2) Left upper quadrant abdominal swelling Status: Acute (3) Bronchitis Status: Acute (4) Morbid obesity Status: Acute - Assessment and Plan (Free Text) Plan: CONTINUE IV ZOSYN 3.375 EVERY 8 HOURLY 11/15/17-4WKS 12/13/17 CONTINUE IV VANCOMYCIN 1250 MG iv EVERY 12 HOURLY FOR mrsa STREP COVERAGE .-30 DAYS F/U VANCO TROUGH IN AM AND KEEP BTWEEN 10-20. ON IV FLAGYL 500MG IV Q8HRLY FOR ANAEROBIC COVERAGE. 12/01/17 . -wound vac changed on 12/15 AND ABDOMINAL WALL I/D AND TISSUE BX TAKEN REPORTED BY SURGERY. -F/U BX TISSUES -LOCAL WOUND CARE/AND VAC CHANGES PER SURGICAL TEAM MWF. -NYSTATIN POWDER TO BOTH GROINS TID PRN.
--- NOTE | 2017-12-16 01:08 | OP ---
PROCEDURE DATE: 12/15/2017 PREOPERATIVE DIAGNOSIS: Left chest and flank wound, status post multiple debridements, status post multiple wound VAC change. POSTOPERATIVE DIAGNOSIS: Left chest and flank wound, status post multiple debridements, status post multiple wound VAC change. PROCEDURES DONE: 1. Negative pressure wound VAC therapy and wound VAC change. 2. Excisional debridement and tissue culture of the wound. SURGEON: Andres New MD ASSEMBLY AND PACKING SUPERVISOR: Yahir Ragland, PGY-3 resident. TYPE OF ANESTHESIA: General endotracheal tube anesthesia. ESTIMATED BLOOD LOSS: Around 20 mL. DRAINS: The wound VAC was placed to the drain. COMPLICATIONS: None. INTRAOPERATIVE FINDINGS: The patient had approximately 12 x 4 x 10 cm deep left chest flank wound, and the patient had some necrosis of the deep part of the cavity, and there was red granulation tissue in rest of the wound. DESCRIPTION OF PROCEDURE: On intraoperative steps, this is a 42-year-old male who was diagnosed with a left chest and flank wall soft tissue infection, and the patient underwent wide local excision as well as multiple wound debridement and wound VAC changes, and after repeated multiple negative culture as well as pathology, the patient was taken back to the OR for wound VAC change and for another final culture as well as tissue sample for pathology to rule out actinomycosis nocardia as well as mycobacterium tuberculosis, and the patient was consented, brought to the OR, placed supine on the stretcher. After induction of the anesthesia, the left side of the chest wall and the wound was prepped and draped in the usual sterile fashion, and the old sponge was removed and the cavity was irrigated. The patient found to have mild necrosis of the deeper part of the cavity and first the tissue sample was sent for the fresh culture with secretions from the wound. The second tissue sample was sent for permanent pathology and the third sample was sent for the PCR for the mycobacterium tuberculosis and after proper debridement and after sending all the cultures, the wound was irrigated. Hemostasis was achieved and wound VAC was replaced, and the negative pressure wound VAC therapy was created. The patient tolerated the procedure well. Count of the instruments and gauze was correct. There were no apparent complications. The patient was reversed from sedation and sent to the postanesthesia care unit in stable condition. Andres New MD [facility] # [id number]
[2017-12-16] MEDS: Morphine 4 MG/ML VIAL IVP PRN ×6 (01:35→22:43)
[2017-12-16] MEDS: guaiFENesin DM 100 mg-10 mg/5 ml UD PO SCH ×4 (05:20→17:15)
[2017-12-16] MEDS: metroNIDAZOLE IV 500 mg/100 ml 500 MG/100 ML BAG IVPB SCH ×3 (05:20→21:21)
[2017-12-16] MEDS: Piperacill/Tazo 3.375gm in Dex 3.375 GM/50 ML BAG IVPB SCH ×3 (05:36→22:43)
--- NOTE | 2017-12-16 06:01 | CP.PCM.PN ---
Subjective - Date & Time of Evaluation Date of Evaluation: 12/16/17 Time of Evaluation: 04:45 - Subjective Subjective: Gen sx: Dr New Pt S&E. NAEO. Resting comfortably. Wiound vac changed yesterday. 3 tissue samples obtained and sent for appropriate stains. will f/u results. Potential CT removal monday pending CXR. Pt has no new complaints. Objective - Vital Signs/Intake and Output Vital Signs (last 24 hours): Temp Pulse Resp BP Pulse Ox 98.4 F 80 20 138/75 99 12/16/17 00:00 12/16/17 00:00 12/16/17 00:00 12/16/17 00:00 12/16/17 00:00 Intake and Output: 12/15/17 12/16/17 18:59 06:59 Intake Total 850 550 Output Total 1275 35 Balance -425 515 - Medications Medications: Current Medications Aspirin (Ecotrin) 81 mg PO DAILY [facility] Last Admin: 12/15/17 10:58 Dose: Not Given Clonidine HCl (Catapres) 0.1 mg PO BID [facility] Last Admin: 12/15/17 17:29 Dose: 0.1 mg Furosemide (Lasix) 40 mg PO DAILY [facility] Last Admin: 12/15/17 11:00 Dose: 40 mg Guaifenesin/Dextromethorphan (Robitussin Dm) 15 ml PO Q6H [facility] Last Admin: 12/16/17 05:20 Dose: 15 ml Vancomycin HCl 1,250 mg/ (Sodium Chloride) 250 mls @ 166.6 mls/hr IVPB Q12H [facility] Last Admin: 12/16/17 02:12 Dose: 166.6 mls/hr Metronidazole (Flagyl) 500 mg in 100 mls @ 100 mls/hr IVPB Q8 [facility] PRN Reason: Protocol Last Admin: 12/16/17 05:20 Dose: 100 mls/hr Piperacillin Sod/Tazobactam Sod (Zosyn 3.375 Gm Iv Premix) 3.375 gm in 50 mls @ 100 mls/hr IVPB Q8H [facility] PRN Reason: Protocol Last Admin: 12/16/17 05:36 Dose: 100 mls/hr Morphine Sulfate (Morphine) 2 mg IVP Q4 PRN PRN Reason: Pain, Mild (1-3) Last Admin: 12/16/17 05:35 Dose: 2 mg Nystatin (Nystop Topical Powder) 1 applic TOP BID [facility] Last Admin: 12/15/17 17:31 Dose: 1 applic Senna/Docusate Sodium (Senokot S 50 Mg-8.6 Mg) 1 tab PO BID [facility] Last Admin: 12/15/17 18:05 Dose: 1 tab - Labs Labs: 12/15/17 07:09 12/15/17 07:09 PT 14.2 SECONDS (9.7-12.2) H 11/29/17 14:41 INR 1.3 11/29/17 14:41 APTT 19 SECONDS (21-34) L 11/29/17 14:41 - Constitutional Appears: Non-toxic, No Acute Distress - ENT Exam ENT Exam: Mucous Membranes Moist - Respiratory Exam Respiratory Exam: absent: Accessory Muscle Use, Respiratory Distress - Cardiovascular Exam Cardiovascular Exam: REGULAR RHYTHM - GI/Abdominal Exam GI & Abdominal Exam: Soft. absent: Distended, Tenderness Additional comments: wound vac with good seal CT dressing c/d/i - no output, no air leak - Neurological Exam Neurological Exam: Alert, Awake, Oriented x3 Assessment and Plan - Assessment and Plan (Free Text) Assessment: 42 M with left chest/abdominal wall abscess and left thoracostomy tube Plan: cont wound vac CT to water seal f/u repeat biopsies plan for CT removal monday d/w Dr Virgen Ragland, PGY3
[2017-12-16] MEDS: Docusate-Senna 50 mg-8.6 mg Tab PO SCH ×2 (09:40→17:15)
--- NOTE | 2017-12-16 12:40 | CP.PCM.PN ---
Subjective - Date & Time of Evaluation Date of Evaluation: 12/16/17 Time of Evaluation: 07:00 - Subjective Subjective: no new complaints no vomitting out of bed to chair Objective - Vital Signs/Intake and Output Vital Signs (last 24 hours): Temp Pulse Resp BP Pulse Ox 98.4 F 82 23 127/76 98 12/16/17 07:41 12/16/17 07:41 12/16/17 07:41 12/16/17 09:41 12/16/17 07:41 Intake and Output: 12/16/17 12/16/17 06:59 18:59 Intake Total 1140 Output Total 585 Balance 555 - Medications Medications: Current Medications Aspirin (Ecotrin) 81 mg PO DAILY [facility] Last Admin: 12/16/17 09:41 Dose: 81 mg Clonidine HCl (Catapres) 0.1 mg PO BID [facility] Last Admin: 12/16/17 09:41 Dose: 0.1 mg Furosemide (Lasix) 40 mg PO DAILY [facility] Last Admin: 12/16/17 09:41 Dose: 40 mg Guaifenesin/Dextromethorphan (Robitussin Dm) 15 ml PO Q6H [facility] Last Admin: 12/16/17 12:35 Dose: 15 ml Vancomycin HCl 1,250 mg/ (Sodium Chloride) 250 mls @ 166.6 mls/hr IVPB Q12H [facility] Last Admin: 12/16/17 02:12 Dose: 166.6 mls/hr Metronidazole (Flagyl) 500 mg in 100 mls @ 100 mls/hr IVPB Q8 [facility] PRN Reason: Protocol Last Admin: 12/16/17 05:20 Dose: 100 mls/hr Piperacillin Sod/Tazobactam Sod (Zosyn 3.375 Gm Iv Premix) 3.375 gm in 50 mls @ 100 mls/hr IVPB Q8H [facility] PRN Reason: Protocol Last Admin: 12/16/17 05:36 Dose: 100 mls/hr Morphine Sulfate (Morphine) 2 mg IVP Q4 PRN PRN Reason: Pain, Mild (1-3) Last Admin: 12/16/17 09:38 Dose: 2 mg Nystatin (Nystop Topical Powder) 1 applic TOP BID [facility] Last Admin: 12/15/17 17:31 Dose: 1 applic Senna/Docusate Sodium (Senokot S 50 Mg-8.6 Mg) 1 tab PO BID [facility] Last Admin: 12/16/17 09:40 Dose: 1 tab - Labs Labs: 12/15/17 07:09 12/15/17 07:09 PT 14.2 SECONDS (9.7-12.2) H 11/29/17 14:41 INR 1.3 11/29/17 14:41 APTT 19 SECONDS (21-34) L 11/29/17 14:41 - Constitutional Appears: Well - Head Exam Head Exam: ATRAUMATIC, NORMAL INSPECTION, NORMOCEPHALIC - Eye Exam Eye Exam: EOMI, Normal appearance, PERRL Pupil Exam: NORMAL ACCOMODATION, PERRL - ENT Exam ENT Exam: Mucous Membranes Moist, Normal Exam - Neck Exam Neck Exam: Full ROM, Normal Inspection. absent: Lymphadenopathy - Respiratory Exam Respiratory Exam: Decreased Breath Sounds - Cardiovascular Exam Cardiovascular Exam: REGULAR RHYTHM, +S1, +S2 - GI/Abdominal Exam GI & Abdominal Exam: Soft, Diminished Bowel Sounds - Rectal Exam Rectal Exam: Deferred Assessment and Plan (1) Abdominal pain Status: Acute (2) Abscess Status: Acute (3) Left upper quadrant abdominal swelling Status: Acute (4) Pleural effusion Status: Acute (5) Pneumonia Status: Acute (6) Pulmonary hypertension Status: Acute (7) Bronchitis Status: Acute (8) Bronchospasm Status: Acute (9) Chronic venous stasis dermatitis Status: Acute (10) Cough Status: Acute (11) Influenza-like illness Status: Acute (12) Leg edema Status: Acute (13) Leg swelling Status: Acute (14) Medical assessment Status: Acute (15) Morbid obesity Status: Acute (16) Pedal edema Status: Acute (17) Reactive airway disease Status: Acute (18) Rhabdomyolysis Status: Acute (19) Tinea pedis Status: Acute (20) Upper respiratory infection Status: Acute (21) Uvulitis Status: Acute - Assessment and Plan (Free Text) Plan: Patient has a wound VAC changed yesterday 3 tissue was obtained report pending Potential CT removal Follow-up with the surgery Follow-up with the ID Continue all antibiotics Patient is sitting out of bed to the chair and comfortable
[2017-12-17] MEDS: guaiFENesin DM 100 mg-10 mg/5 ml UD PO SCH ×4 (00:26→17:40)
[2017-12-17] MEDS: Morphine 4 MG/ML VIAL IVP PRN ×6 (02:37→23:41)
[2017-12-17] MEDS: metroNIDAZOLE IV 500 mg/100 ml 500 MG/100 ML BAG IVPB SCH ×3 (05:20→21:10)
[2017-12-17] MEDS: Piperacill/Tazo 3.375gm in Dex 3.375 GM/50 ML BAG IVPB SCH ×3 (06:34→22:28)
--- NOTE | 2017-12-17 08:01 | CP.PCM.PN ---
Subjective - Date & Time of Evaluation Date of Evaluation: 12/17/17 Time of Evaluation: 07:58 - Subjective Subjective: Surgery: Dr. New Pt seen and examined. No acute overnight events. States he feels ok and doesn't have any pain. Feels anxious about chest tube removal tomorrow. Tolerating a diet and having BMs. Admits to ambulating a little with walker. Denies F/C, chest pain or SOB. Objective - Vital Signs/Intake and Output Vital Signs (last 24 hours): Temp Pulse Resp BP Pulse Ox 97.9 F 81 20 112/73 98 12/17/17 00:07 12/17/17 00:07 12/17/17 00:07 12/17/17 00:07 12/17/17 00:07 Intake and Output: 12/17/17 12/17/17 06:59 18:59 Intake Total 1260 Output Total 1200 Balance 60 - Medications Medications: Current Medications Aspirin (Ecotrin) 81 mg PO DAILY [facility] Last Admin: 12/16/17 09:41 Dose: 81 mg Clonidine HCl (Catapres) 0.1 mg PO BID [facility] Last Admin: 12/16/17 17:15 Dose: 0.1 mg Furosemide (Lasix) 40 mg PO DAILY [facility] Last Admin: 12/16/17 09:41 Dose: 40 mg Guaifenesin/Dextromethorphan (Robitussin Dm) 15 ml PO Q6H [facility] Last Admin: 12/17/17 05:20 Dose: 15 ml Vancomycin HCl 1,250 mg/ (Sodium Chloride) 250 mls @ 166.6 mls/hr IVPB Q12H [facility] Last Admin: 12/17/17 02:33 Dose: 166.6 mls/hr Metronidazole (Flagyl) 500 mg in 100 mls @ 100 mls/hr IVPB Q8 [facility] PRN Reason: Protocol Last Admin: 12/17/17 05:20 Dose: 100 mls/hr Piperacillin Sod/Tazobactam Sod (Zosyn 3.375 Gm Iv Premix) 3.375 gm in 50 mls @ 100 mls/hr IVPB Q8H [facility] PRN Reason: Protocol Last Admin: 12/17/17 06:34 Dose: 100 mls/hr Morphine Sulfate (Morphine) 2 mg IVP Q4 PRN PRN Reason: Pain, Mild (1-3) Last Admin: 12/17/17 06:53 Dose: 2 mg Nystatin (Nystop Topical Powder) 1 applic TOP BID [facility] Last Admin: 12/16/17 17:19 Dose: 1 applic Senna/Docusate Sodium (Senokot S 50 Mg-8.6 Mg) 1 tab PO BID [facility] Last Admin: 12/16/17 17:15 Dose: 1 tab - Labs Labs: 12/15/17 07:09 12/15/17 07:09 PT 14.2 SECONDS (9.7-12.2) H 11/29/17 14:41 INR 1.3 11/29/17 14:41 APTT 19 SECONDS (21-34) L 11/29/17 14:41 - Constitutional Appears: Well, No Acute Distress - Head Exam Head Exam: ATRAUMATIC, NORMOCEPHALIC - Eye Exam Eye Exam: Normal appearance - ENT Exam ENT Exam: Mucous Membranes Moist - Respiratory Exam Respiratory Exam: NORMAL BREATHING PATTERN Additional comments: L chest wall wound vac in place; Chest tube in place on waterseal - Cardiovascular Exam Cardiovascular Exam: RRR - GI/Abdominal Exam GI & Abdominal Exam: Soft. absent: Tenderness - Neurological Exam Neurological Exam: Alert, Awake, Oriented x3 - Skin Skin Exam: Dry, Warm Assessment and Plan - Assessment and Plan (Free Text) Assessment: 42M with necrotizing infection of L chest wall s/p multiple debridements & wound vac placement Plan: - plan for chest tube removal in AM - wound vac change in AM - DC planning - d/w Dr. Virgen Iniguez, PGY-3
[2017-12-17] MEDS: Docusate-Senna 50 mg-8.6 mg Tab PO SCH ×2 (09:58→17:41)
--- NOTE | 2017-12-17 17:11 | CP.PCM.PN ---
Subjective - Date & Time of Evaluation Date of Evaluation: 12/17/17 Time of Evaluation: 07:00 - Subjective Subjective: Clinically same Objective - Vital Signs/Intake and Output Vital Signs (last 24 hours): Temp Pulse Resp BP Pulse Ox 98.3 F 77 20 104/68 99 12/17/17 15:00 12/17/17 15:00 12/17/17 15:00 12/17/17 15:00 12/17/17 15:00 Intake and Output: 12/17/17 12/17/17 06:59 18:59 Intake Total 1260 800 Output Total 1200 1020 Balance 60 -220 - Medications Medications: Current Medications Aspirin (Ecotrin) 81 mg PO DAILY [facility] Last Admin: 12/17/17 09:54 Dose: 81 mg Clonidine HCl (Catapres) 0.1 mg PO BID [facility] Last Admin: 12/17/17 09:54 Dose: 0.1 mg Furosemide (Lasix) 40 mg PO DAILY [facility] Last Admin: 12/17/17 09:54 Dose: 40 mg Guaifenesin/Dextromethorphan (Robitussin Dm) 15 ml PO Q6H [facility] Last Admin: 12/17/17 12:41 Dose: 15 ml Vancomycin HCl 1,250 mg/ (Sodium Chloride) 250 mls @ 166.6 mls/hr IVPB Q12H [facility] Last Admin: 12/17/17 14:24 Dose: 166.6 mls/hr Metronidazole (Flagyl) 500 mg in 100 mls @ 100 mls/hr IVPB Q8 [facility] PRN Reason: Protocol Last Admin: 12/17/17 14:22 Dose: 100 mls/hr Piperacillin Sod/Tazobactam Sod (Zosyn 3.375 Gm Iv Premix) 3.375 gm in 50 mls @ 100 mls/hr IVPB Q8H [facility] PRN Reason: Protocol Last Admin: 12/17/17 14:21 Dose: 100 mls/hr Morphine Sulfate (Morphine) 2 mg IVP Q4 PRN PRN Reason: Pain, Mild (1-3) Last Admin: 12/17/17 15:38 Dose: 2 mg Nystatin (Nystop Topical Powder) 1 applic TOP BID [facility] Last Admin: 12/17/17 09:55 Dose: 1 applic Senna/Docusate Sodium (Senokot S 50 Mg-8.6 Mg) 1 tab PO BID [facility] Last Admin: 12/17/17 09:58 Dose: 1 tab - Labs Labs: 12/15/17 07:09 12/15/17 07:09 PT 14.2 SECONDS (9.7-12.2) H 11/29/17 14:41 INR 1.3 11/29/17 14:41 APTT 19 SECONDS (21-34) L 11/29/17 14:41 - Constitutional Appears: Well - Head Exam Head Exam: ATRAUMATIC, NORMAL INSPECTION, NORMOCEPHALIC - Eye Exam Eye Exam: EOMI, Normal appearance, PERRL Pupil Exam: NORMAL ACCOMODATION, PERRL - ENT Exam ENT Exam: Mucous Membranes Moist, Normal Exam - Neck Exam Neck Exam: Full ROM, Normal Inspection. absent: Lymphadenopathy - Respiratory Exam Respiratory Exam: Decreased Breath Sounds - Cardiovascular Exam Cardiovascular Exam: REGULAR RHYTHM, +S1, +S2 - GI/Abdominal Exam GI & Abdominal Exam: Soft, Diminished Bowel Sounds - Rectal Exam Rectal Exam: Deferred Assessment and Plan (1) Abdominal pain Status: Acute (2) Abscess Status: Acute (3) Left upper quadrant abdominal swelling Status: Acute (4) Pleural effusion Status: Acute (5) Pneumonia Status: Acute (6) Pulmonary hypertension Status: Acute (7) Bronchitis Status: Acute (8) Bronchospasm Status: Acute (9) Chronic venous stasis dermatitis Status: Acute (10) Cough Status: Acute (11) Influenza-like illness Status: Acute (12) Leg edema Status: Acute (13) Leg swelling Status: Acute (14) Medical assessment Status: Acute (15) Morbid obesity Status: Acute (16) Pedal edema Status: Acute (17) Reactive airway disease Status: Acute (18) Rhabdomyolysis Status: Acute (19) Tinea pedis Status: Acute (20) Upper respiratory infection Status: Acute (21) Uvulitis Status: Acute
--- NOTE | 2017-12-17 23:06 | CP.PCM.PN ---
Subjective - Date & Time of Evaluation Date of Evaluation: 12/17/17 Time of Evaluation: 23:05 - Subjective Subjective: AFEBRILE CLINCALLY SAME. ON ABX LABS REVIEWED; VANCO TROUGH 12.7 12/16/17-OK F/U CULTURES . Objective - Vital Signs/Intake and Output Vital Signs (last 24 hours): Temp Pulse Resp BP Pulse Ox 98.3 F 84 20 118/67 99 12/17/17 15:00 12/17/17 18:02 12/17/17 15:00 12/17/17 18:02 12/17/17 15:00 Intake and Output: 12/17/17 12/18/17 18:59 06:59 Intake Total 800 700 Output Total 1020 1000 Balance -220 -300 - Medications Medications: Current Medications Aspirin (Ecotrin) 81 mg PO DAILY [facility] Last Admin: 12/17/17 09:54 Dose: 81 mg Clonidine HCl (Catapres) 0.1 mg PO BID [facility] Last Admin: 12/17/17 18:01 Dose: 0.1 mg Furosemide (Lasix) 40 mg PO DAILY [facility] Last Admin: 12/17/17 09:54 Dose: 40 mg Guaifenesin/Dextromethorphan (Robitussin Dm) 15 ml PO Q6H [facility] Last Admin: 12/17/17 17:40 Dose: 15 ml Vancomycin HCl 1,250 mg/ (Sodium Chloride) 250 mls @ 166.6 mls/hr IVPB Q12H [facility] Last Admin: 12/17/17 14:24 Dose: 166.6 mls/hr Metronidazole (Flagyl) 500 mg in 100 mls @ 100 mls/hr IVPB Q8 [facility] PRN Reason: Protocol Last Admin: 12/17/17 21:10 Dose: 100 mls/hr Piperacillin Sod/Tazobactam Sod (Zosyn 3.375 Gm Iv Premix) 3.375 gm in 50 mls @ 100 mls/hr IVPB Q8H [facility] PRN Reason: Protocol Last Admin: 12/17/17 22:28 Dose: 100 mls/hr Morphine Sulfate (Morphine) 2 mg IVP Q4 PRN PRN Reason: Pain, Mild (1-3) Last Admin: 12/17/17 19:38 Dose: 2 mg Nystatin (Nystop Topical Powder) 1 applic TOP BID [facility] Last Admin: 12/17/17 17:43 Dose: 1 applic Senna/Docusate Sodium (Senokot S 50 Mg-8.6 Mg) 1 tab PO BID [facility] Last Admin: 12/17/17 17:41 Dose: 1 tab - Labs Labs: 12/15/17 07:09 12/15/17 07:09 PT 14.2 SECONDS (9.7-12.2) H 11/29/17 14:41 INR 1.3 11/29/17 14:41 APTT 19 SECONDS (21-34) L 11/29/17 14:41 - Constitutional Appears: No Acute Distress - Head Exam Head Exam: NORMAL INSPECTION - Eye Exam Eye Exam: EOMI, PERRL - ENT Exam ENT Exam: Normal Oropharynx - Neck Exam Neck Exam: Normal Inspection - Respiratory Exam Respiratory Exam: Decreased Breath Sounds Additional comments: CT CHEST TO WATER SEAL. 2ND CT DRAIN TO WOUND VAC - GI/Abdominal Exam GI & Abdominal Exam: Soft, Normal Bowel Sounds. absent: Organomegaly - Extremities Exam Extremities Exam: Pedal Edema. absent: Calf Tenderness - Neurological Exam Neurological Exam: Alert, Awake, CN II-XII Intact - Psychiatric Exam Psychiatric exam: Normal Mood - Skin Skin Exam: Normal Color, Warm Assessment and Plan (1) Pneumonia Status: Acute (2) Left upper quadrant abdominal swelling Status: Acute (3) Bronchitis Status: Acute (4) Morbid obesity Status: Acute - Assessment and Plan (Free Text) Plan: CONTINUE IV ZOSYN 3.375 EVERY 8 HOURLY 11/15/17-4WKS 12/13/17 CONTINUE IV VANCOMYCIN 1250 MG iv EVERY 12 HOURLY FOR mrsa STREP COVERAGE .-30 DAYS F/U VANCO TROUGH IN AM AND KEEP BTWEEN 10-20. ON IV FLAGYL 500MG IV Q8HRLY FOR ANAEROBIC COVERAGE. 12/01/17 . -wound vac changed on 12/15 AND ABDOMINAL WALL I/D AND TISSUE BX TAKEN REPORTED BY SURGERY. -F/U BX TISSUES /AND CULTURES -LOCAL WOUND CARE/AND VAC CHANGES PER SURGICAL TEAM MWF. -NYSTATIN POWDER TO BOTH GROINS TID PRN.
[2017-12-18] MEDS: guaiFENesin DM 100 mg-10 mg/5 ml UD PO SCH ×4 (01:31→17:24)
[2017-12-18] MEDS: Morphine 4 MG/ML VIAL IVP PRN ×5 (03:34→20:25)
[2017-12-18] MEDS: metroNIDAZOLE IV 500 mg/100 ml 500 MG/100 ML BAG IVPB SCH (05:04)
[2017-12-18] MEDS: Piperacill/Tazo 3.375gm in Dex 3.375 GM/50 ML BAG IVPB SCH ×3 (06:19→21:49)
--- NOTE | 2017-12-18 07:38 | CP.PCM.PN ---
<Ondina Ness - Last Filed: 12/18/17 07:35> Subjective - Date & Time of Evaluation Date of Evaluation: 12/18/17 Time of Evaluation: 07:35 - Subjective Subjective: General Surgery - Dr. New Pt S&E. QUINCY. Pt denies any complaints at this time. He denies any Chest pain or SOB. Pt aware of plan for Chest tube removal today. No fevers or chills. Objective - Vital Signs/Intake and Output Vital Signs (last 24 hours): Temp Pulse Resp BP Pulse Ox 98.1 F 81 20 120/75 100 12/18/17 07:32 12/18/17 07:32 12/18/17 07:32 12/18/17 07:32 12/18/17 07:32 Intake and Output: 12/18/17 12/18/17 06:59 18:59 Intake Total 1400 Output Total 1820 Balance -420 - Medications Medications: Current Medications Aspirin (Ecotrin) 81 mg PO DAILY [facility] Last Admin: 12/17/17 09:54 Dose: 81 mg Clonidine HCl (Catapres) 0.1 mg PO BID [facility] Last Admin: 12/17/17 18:01 Dose: 0.1 mg Furosemide (Lasix) 40 mg PO DAILY [facility] Last Admin: 12/17/17 09:54 Dose: 40 mg Guaifenesin/Dextromethorphan (Robitussin Dm) 15 ml PO Q6H [facility] Last Admin: 12/18/17 05:15 Dose: 15 ml Vancomycin HCl 1,250 mg/ (Sodium Chloride) 250 mls @ 166.6 mls/hr IVPB Q12H [facility] Last Admin: 12/18/17 03:31 Dose: 166.6 mls/hr Metronidazole (Flagyl) 500 mg in 100 mls @ 100 mls/hr IVPB Q8 [facility] PRN Reason: Protocol Last Admin: 12/18/17 05:04 Dose: 100 mls/hr Piperacillin Sod/Tazobactam Sod (Zosyn 3.375 Gm Iv Premix) 3.375 gm in 50 mls @ 100 mls/hr IVPB Q8H [facility] PRN Reason: Protocol Last Admin: 12/18/17 06:19 Dose: 100 mls/hr Morphine Sulfate (Morphine) 2 mg IVP Q4 PRN PRN Reason: Pain, Mild (1-3) Last Admin: 12/18/17 06:48 Dose: 2 mg Nystatin (Nystop Topical Powder) 1 applic TOP BID [facility] Last Admin: 12/17/17 17:43 Dose: 1 applic Senna/Docusate Sodium (Senokot S 50 Mg-8.6 Mg) 1 tab PO BID [facility] Last Admin: 12/17/17 17:41 Dose: 1 tab - Labs Labs: 12/15/17 07:09 12/15/17 07:09 PT 14.2 SECONDS (9.7-12.2) H 11/29/17 14:41 INR 1.3 11/29/17 14:41 APTT 19 SECONDS (21-34) L 11/29/17 14:41 - Constitutional Appears: No Acute Distress - Head Exam Head Exam: ATRAUMATIC, NORMAL INSPECTION, NORMOCEPHALIC - Eye Exam Eye Exam: Normal appearance - Respiratory Exam Respiratory Exam: NORMAL BREATHING PATTERN. absent: Respiratory Distress Additional comments: Left CT in place with wound vac below, to waterseal - Neurological Exam Neurological Exam: Alert, Oriented x3 - Psychiatric Exam Psychiatric exam: Normal Affect, Normal Mood - Skin Skin Exam: Dry, Intact Assessment and Plan - Assessment and Plan (Free Text) Assessment: 42M with necrotizing infection of L chest wall s/p multiple debridements & wound vac placement Plan: - Chest tube removal later today - Will change wound vac at time of chest tube removal - DC planning Dw Dr Virgen Ness PGY3 <Andres New B - Last Filed: 12/18/17 12:38> Objective - Vital Signs/Intake and Output Vital Signs (last 24 hours): Temp Pulse Resp BP Pulse Ox 98.1 F 81 20 127/69 100 12/18/17 07:32 12/18/17 07:32 12/18/17 07:32 12/18/17 10:01 12/18/17 07:32 Intake and Output: 12/18/17 12/18/17 06:59 18:59 Intake Total 1400 Output Total 1820 Balance -420 - Medications Medications: Current Medications Aspirin (Ecotrin) 81 mg PO DAILY [facility] Last Admin: 12/18/17 10:01 Dose: 81 mg Clonidine HCl (Catapres) 0.1 mg PO BID [facility] Last Admin: 12/18/17 10:01 Dose: 0.1 mg Fluconazole (Diflucan) 200 mg PO DAILY [facility] PRN Reason: Protocol Furosemide (Lasix) 40 mg PO DAILY [facility] Last Admin: 12/18/17 10:01 Dose: 40 mg Guaifenesin/Dextromethorphan (Robitussin Dm) 15 ml PO Q6H [facility] Last Admin: 12/18/17 05:15 Dose: 15 ml Piperacillin Sod/Tazobactam Sod (Zosyn 3.375 Gm Iv Premix) 3.375 gm in 50 mls @ 100 mls/hr IVPB Q8H [facility] PRN Reason: Protocol Last Admin: 12/18/17 06:19 Dose: 100 mls/hr Linezolid (Zyvox 600mg/300ml D5w) 600 mg in 300 mls @ 200 mls/hr IVPB Q12H [facility] PRN Reason: Protocol Morphine Sulfate (Morphine) 2 mg IVP Q4 PRN PRN Reason: Pain, Mild (1-3) Last Admin: 12/18/17 10:59 Dose: 2 mg Nystatin (Nystop Topical Powder) 1 applic TOP BID [facility] Last Admin: 12/17/17 17:43 Dose: 1 applic Senna/Docusate Sodium (Senokot S 50 Mg-8.6 Mg) 1 tab PO BID [facility] Last Admin: 12/18/17 10:02 Dose: 1 tab - Labs Labs: 12/15/17 07:09 12/15/17 07:09 PT 14.2 SECONDS (9.7-12.2) H 11/29/17 14:41 INR 1.3 11/29/17 14:41 APTT 19 SECONDS (21-34) L 11/29/17 14:41 Attending/Attestation - Attestation I have personally seen and examined this patient.: Yes I have fully participated in the care of the patient.: Yes I have reviewed all pertinent clinical information, including history, physical exam and plan: Yes Notes (Text): Pt was seen and examined at bedside Agree with above note and assessment Pt with left chest tube and left flank wound Pt is improving clinically DC chest tube today Chest Xray before and after chest tube Dc plan Plan d.w pt in detail Risk and benefit explained in detail.
[2017-12-18] MEDS: Docusate-Senna 50 mg-8.6 mg Tab PO SCH ×2 (10:02→17:24)
--- NOTE | 2017-12-18 10:05 | CP.PCM.PN ---
Subjective - Date & Time of Evaluation Date of Evaluation: 12/18/17 Time of Evaluation: 07:00 - Subjective Subjective: clinically same Objective - Vital Signs/Intake and Output Vital Signs (last 24 hours): Temp Pulse Resp BP Pulse Ox 98.1 F 81 20 127/69 100 12/18/17 07:32 12/18/17 07:32 12/18/17 07:32 12/18/17 10:01 12/18/17 07:32 Intake and Output: 12/18/17 12/18/17 06:59 18:59 Intake Total 1400 Output Total 1820 Balance -420 - Medications Medications: Current Medications Aspirin (Ecotrin) 81 mg PO DAILY [facility] Last Admin: 12/18/17 10:01 Dose: 81 mg Clonidine HCl (Catapres) 0.1 mg PO BID [facility] Last Admin: 12/18/17 10:01 Dose: 0.1 mg Furosemide (Lasix) 40 mg PO DAILY [facility] Last Admin: 12/18/17 10:01 Dose: 40 mg Guaifenesin/Dextromethorphan (Robitussin Dm) 15 ml PO Q6H [facility] Last Admin: 12/18/17 05:15 Dose: 15 ml Vancomycin HCl 1,250 mg/ (Sodium Chloride) 250 mls @ 166.6 mls/hr IVPB Q12H [facility] Last Admin: 12/18/17 03:31 Dose: 166.6 mls/hr Metronidazole (Flagyl) 500 mg in 100 mls @ 100 mls/hr IVPB Q8 [facility] PRN Reason: Protocol Last Admin: 12/18/17 05:04 Dose: 100 mls/hr Piperacillin Sod/Tazobactam Sod (Zosyn 3.375 Gm Iv Premix) 3.375 gm in 50 mls @ 100 mls/hr IVPB Q8H [facility] PRN Reason: Protocol Last Admin: 12/18/17 06:19 Dose: 100 mls/hr Morphine Sulfate (Morphine) 2 mg IVP Q4 PRN PRN Reason: Pain, Mild (1-3) Last Admin: 12/18/17 06:48 Dose: 2 mg Nystatin (Nystop Topical Powder) 1 applic TOP BID [facility] Last Admin: 12/17/17 17:43 Dose: 1 applic Senna/Docusate Sodium (Senokot S 50 Mg-8.6 Mg) 1 tab PO BID [facility] Last Admin: 12/18/17 10:02 Dose: 1 tab - Labs Labs: 12/15/17 07:09 12/15/17 07:09 PT 14.2 SECONDS (9.7-12.2) H 11/29/17 14:41 INR 1.3 11/29/17 14:41 APTT 19 SECONDS (21-34) L 11/29/17 14:41 - Constitutional Appears: Well - Head Exam Head Exam: ATRAUMATIC, NORMAL INSPECTION, NORMOCEPHALIC - Eye Exam Eye Exam: EOMI, Normal appearance, PERRL Pupil Exam: NORMAL ACCOMODATION, PERRL - ENT Exam ENT Exam: Mucous Membranes Moist, Normal Exam - Neck Exam Neck Exam: Full ROM, Normal Inspection. absent: Lymphadenopathy - Respiratory Exam Respiratory Exam: Decreased Breath Sounds - Cardiovascular Exam Cardiovascular Exam: REGULAR RHYTHM, +S1, +S2 - GI/Abdominal Exam GI & Abdominal Exam: Soft, Diminished Bowel Sounds - Rectal Exam Rectal Exam: Deferred Assessment and Plan (1) Abdominal pain Status: Acute (2) Abscess Status: Acute (3) Left upper quadrant abdominal swelling Status: Acute (4) Pleural effusion Status: Acute (5) Pneumonia Status: Acute (6) Pulmonary hypertension Status: Acute (7) Bronchitis Status: Acute (8) Bronchospasm Status: Acute (9) Chronic venous stasis dermatitis Status: Acute (10) Cough Status: Acute (11) Influenza-like illness Status: Acute (12) Leg edema Status: Acute (13) Leg swelling Status: Acute (14) Medical assessment Status: Acute (15) Morbid obesity Status: Acute (16) Pedal edema Status: Acute (17) Reactive airway disease Status: Acute (18) Rhabdomyolysis Status: Acute (19) Tinea pedis Status: Acute (20) Upper respiratory infection Status: Acute (21) Uvulitis Status: Acute - Assessment and Plan (Free Text) Plan: Continue metronidazole Continue nystatin powder Continue vancomycin Continue Zosyn the patient is growing twice daily resistance to everything along with a yeast will discuss with Dr. Naik for further change in antibiotics if needed Continue wound VAC Continue chest tube drainage seen As ordered
--- NOTE | 2017-12-18 10:50 | CP.PCM.PN ---
Subjective - Date & Time of Evaluation Date of Evaluation: 12/18/17 Time of Evaluation: 10:50 - Subjective Subjective: AFEBRILE, OUT OF BED ON CHAIR. DENIES SHORTNESS OF BREATH OR CHEST PAIN. OCCASIONAL COUGH. CHEST TUBE TO WATERSEAL. WOUND VAC IN PLACE TO SUCTION. Objective - Vital Signs/Intake and Output Vital Signs (last 24 hours): Temp Pulse Resp BP Pulse Ox 98.1 F 81 20 127/69 100 12/18/17 07:32 12/18/17 07:32 12/18/17 07:32 12/18/17 10:01 12/18/17 07:32 Intake and Output: 12/18/17 12/18/17 06:59 18:59 Intake Total 1400 Output Total 1820 Balance -420 - Medications Medications: Current Medications Aspirin (Ecotrin) 81 mg PO DAILY [facility] Last Admin: 12/18/17 10:01 Dose: 81 mg Clonidine HCl (Catapres) 0.1 mg PO BID [facility] Last Admin: 12/18/17 10:01 Dose: 0.1 mg Fluconazole (Diflucan) 200 mg PO DAILY [facility] PRN Reason: Protocol Furosemide (Lasix) 40 mg PO DAILY [facility] Last Admin: 12/18/17 10:01 Dose: 40 mg Guaifenesin/Dextromethorphan (Robitussin Dm) 15 ml PO Q6H [facility] Last Admin: 12/18/17 05:15 Dose: 15 ml Piperacillin Sod/Tazobactam Sod (Zosyn 3.375 Gm Iv Premix) 3.375 gm in 50 mls @ 100 mls/hr IVPB Q8H [facility] PRN Reason: Protocol Last Admin: 12/18/17 06:19 Dose: 100 mls/hr Linezolid (Zyvox 600mg/300ml D5w) 600 mg in 300 mls @ 200 mls/hr IVPB Q12 [facility] PRN Reason: Protocol Stop: 01/01/18 10:46 Morphine Sulfate (Morphine) 2 mg IVP Q4 PRN PRN Reason: Pain, Mild (1-3) Last Admin: 12/18/17 06:48 Dose: 2 mg Nystatin (Nystop Topical Powder) 1 applic TOP BID [facility] Last Admin: 12/17/17 17:43 Dose: 1 applic Senna/Docusate Sodium (Senokot S 50 Mg-8.6 Mg) 1 tab PO BID [facility] Last Admin: 12/18/17 10:02 Dose: 1 tab - Labs Labs: 12/15/17 07:09 12/15/17 07:09 PT 14.2 SECONDS (9.7-12.2) H 11/29/17 14:41 INR 1.3 11/29/17 14:41 APTT 19 SECONDS (21-34) L 11/29/17 14:41 - Constitutional Appears: No Acute Distress - Head Exam Head Exam: NORMAL INSPECTION - Eye Exam Eye Exam: EOMI, PERRL. absent: Scleral icterus - ENT Exam ENT Exam: Mucous Membranes Moist - Neck Exam Neck Exam: Normal Inspection - Respiratory Exam Respiratory Exam: Decreased Breath Sounds (left lung. Chest tube to waterseal.) , NORMAL BREATHING PATTERN - Cardiovascular Exam Cardiovascular Exam: REGULAR RHYTHM, +S1, +S2 - GI/Abdominal Exam GI & Abdominal Exam: Soft, Tenderness (at site of CT connected to wound VAC.), Normal Bowel Sounds - Extremities Exam Extremities Exam: Pedal Edema. absent: Calf Tenderness - Neurological Exam Neurological Exam: Alert, Awake, CN II-XII Intact, Normal Gait, Oriented x3, Reflexes Normal - Psychiatric Exam Psychiatric exam: Normal Mood - Skin Skin Exam: Normal Color, Warm Assessment and Plan (1) Pneumonia Status: Acute (2) Left upper quadrant abdominal swelling Status: Acute (3) Bronchitis Status: Acute (4) Morbid obesity Status: Acute - Assessment and Plan (Free Text) Plan: ON ZOSYN 3.375 Q 8 HOURLY START ON ZYVOX 600 MG EVERY 12 HOURLY FOR VRE AND TISSUE CULTURE CHEST WALL. 4- 2-18 START DIFLUCAN 200 MG BY MOUTH OD DAILY FOR [facility]BICANS ALSO ISOLATED TISSUE CULTURE.4-2-18 CHEST TUBE AND WOUND vac CARE PER SURGERY. FOLLOW-UP SPECIAL STAINS FOR AF[employer] AND CULTURE. SURGICAL TEAM HELP APPRECIATED.
--- NOTE | 2017-12-18 11:54 | RAD ---
Chest x-ray single frontal view History: Chest tube. Comparison: 12/13/2017 Findings: Left chest tube in place. Small left pleural effusion with consolidative changes at the left lung base. Venous congestion. Elevated right hemidiaphragm with adjacent atelectasis. Cardiomegaly. Impression: Left chest tube in place. Small left pleural effusion with consolidative changes at the left lung base. Venous congestion. Elevated right hemidiaphragm with adjacent atelectasis. Cardiomegaly.
--- NOTE | 2017-12-18 12:33 | CP.PCM.PN ---
Subjective - Date & Time of Evaluation Date of Evaluation: 12/18/17 Time of Evaluation: 07:00 - Subjective Subjective: clinically same Objective - Vital Signs/Intake and Output Vital Signs (last 24 hours): Temp Pulse Resp BP Pulse Ox 98.1 F 81 20 127/69 100 12/18/17 07:32 12/18/17 07:32 12/18/17 07:32 12/18/17 10:01 12/18/17 07:32 Intake and Output: 12/18/17 12/18/17 06:59 18:59 Intake Total 1400 Output Total 1820 Balance -420 - Medications Medications: Current Medications Aspirin (Ecotrin) 81 mg PO DAILY [facility] Last Admin: 12/18/17 10:01 Dose: 81 mg Clonidine HCl (Catapres) 0.1 mg PO BID [facility] Last Admin: 12/18/17 10:01 Dose: 0.1 mg Fluconazole (Diflucan) 200 mg PO DAILY [facility] PRN Reason: Protocol Furosemide (Lasix) 40 mg PO DAILY [facility] Last Admin: 12/18/17 10:01 Dose: 40 mg Guaifenesin/Dextromethorphan (Robitussin Dm) 15 ml PO Q6H [facility] Last Admin: 12/18/17 05:15 Dose: 15 ml Piperacillin Sod/Tazobactam Sod (Zosyn 3.375 Gm Iv Premix) 3.375 gm in 50 mls @ 100 mls/hr IVPB Q8H [facility] PRN Reason: Protocol Last Admin: 12/18/17 06:19 Dose: 100 mls/hr Linezolid (Zyvox 600mg/300ml D5w) 600 mg in 300 mls @ 200 mls/hr IVPB Q12H [facility] PRN Reason: Protocol Morphine Sulfate (Morphine) 2 mg IVP Q4 PRN PRN Reason: Pain, Mild (1-3) Last Admin: 12/18/17 10:59 Dose: 2 mg Nystatin (Nystop Topical Powder) 1 applic TOP BID [facility] Last Admin: 12/17/17 17:43 Dose: 1 applic Senna/Docusate Sodium (Senokot S 50 Mg-8.6 Mg) 1 tab PO BID [facility] Last Admin: 12/18/17 10:02 Dose: 1 tab - Labs Labs: 12/15/17 07:09 03/30/18 07:09 PT 14.2 SECONDS (9.7-12.2) H 11/29/17 14:41 INR 1.3 11/29/17 14:41 APTT 19 SECONDS (21-34) L 11/29/17 14:41 - Constitutional Appears: Well - Head Exam Head Exam: ATRAUMATIC, NORMAL INSPECTION, NORMOCEPHALIC - Eye Exam Eye Exam: EOMI, Normal appearance, PERRL Pupil Exam: NORMAL ACCOMODATION, PERRL - ENT Exam ENT Exam: Mucous Membranes Moist, Normal Exam - Neck Exam Neck Exam: Full ROM, Normal Inspection. absent: Lymphadenopathy - Respiratory Exam Respiratory Exam: Decreased Breath Sounds - Cardiovascular Exam Cardiovascular Exam: REGULAR RHYTHM, +S1, +S2 - GI/Abdominal Exam GI & Abdominal Exam: Soft, Diminished Bowel Sounds - Rectal Exam Rectal Exam: Deferred Assessment and Plan (1) Abdominal pain Status: Acute (2) Abscess Status: Acute (3) Left upper quadrant abdominal swelling Status: Acute (4) Pleural effusion Status: Acute (5) Pneumonia Status: Acute (6) Pulmonary hypertension Status: Acute (7) Bronchitis Status: Acute (8) Bronchospasm Status: Acute (9) Chronic venous stasis dermatitis Status: Acute (10) Cough Status: Acute (11) Influenza-like illness Status: Acute (12) Leg edema Status: Acute (13) Leg swelling Status: Acute (14) Medical assessment Status: Acute (15) Morbid obesity Status: Acute (16) Pedal edema Status: Acute (17) Reactive airway disease Status: Acute (18) Rhabdomyolysis Status: Acute (19) Tinea pedis Status: Acute (20) Upper respiratory infection Status: Acute (21) Uvulitis Status: Acute
[2017-12-18] MEDS: Linezolid 600 mg in D5W 300 ml 600 MG/300 ML BAG IVPB SCH (14:03)
[2017-12-19] MEDS: Morphine 4 MG/ML VIAL IVP PRN ×5 (00:19→22:48)
[2017-12-19] MEDS: guaiFENesin DM 100 mg-10 mg/5 ml UD PO SCH ×5 (01:17→23:59)
[2017-12-19] MEDS: Linezolid 600 mg in D5W 300 ml 600 MG/300 ML BAG IVPB SCH ×2 (02:28→13:42)
[2017-12-19] MEDS: Piperacill/Tazo 3.375gm in Dex 3.375 GM/50 ML BAG IVPB SCH ×4 (05:52→22:29)
--- NOTE | 2017-12-19 09:11 | CP.PCM.PN ---
<Ondina Ness - Last Filed: 12/19/17 11:19> Subjective - Date & Time of Evaluation Date of Evaluation: 12/19/17 Time of Evaluation: 09:09 - Subjective Subjective: General Surgery - Dr. New Pt S&EYuan MATHEW. Pt denies any complaints at this time. He is OOB in chair with CT to waterseal, wound vac in place to suction. He denies any Fevers chills SOb or chest pain. Objective - Vital Signs/Intake and Output Vital Signs (last 24 hours): Temp Pulse Resp BP Pulse Ox 97.9 F 80 20 113/73 96 12/19/17 07:00 12/19/17 07:00 12/19/17 07:00 12/19/17 07:00 12/19/17 07:00 Intake and Output: 12/19/17 12/19/17 06:59 18:59 Intake Total 900 Output Total 410 Balance 490 - Medications Medications: Current Medications Aspirin (Ecotrin) 81 mg PO DAILY REPLACED BY [facility] Last Admin: 12/18/17 10:01 Dose: 81 mg Clonidine HCl (Catapres) 0.1 mg PO BID REPLACED BY [facility] Last Admin: 12/18/17 17:23 Dose: 0.1 mg Fluconazole (Diflucan) 200 mg PO DAILY [facility] PRN Reason: Protocol Furosemide (Lasix) 40 mg PO DAILY REPLACED BY [facility] Last Admin: 12/18/17 10:01 Dose: 40 mg Guaifenesin/Dextromethorphan (Robitussin Dm) 15 ml PO Q6H REPLACED BY [facility] Last Admin: 12/19/17 05:51 Dose: 15 ml Piperacillin Sod/Tazobactam Sod (Zosyn 3.375 Gm Iv Premix) 3.375 gm in 50 mls @ 100 mls/hr IVPB Q8H [facility] PRN Reason: Protocol Last Admin: 12/19/17 05:52 Dose: 100 mls/hr Linezolid (Zyvox 600mg/300ml D5w) 600 mg in 300 mls @ 200 mls/hr IVPB Q12H [facility] PRN Reason: Protocol Last Admin: 12/19/17 02:28 Dose: 200 mls/hr Morphine Sulfate (Morphine) 2 mg IVP Q4 PRN PRN Reason: Pain, Mild (1-3) Last Admin: 12/19/17 08:22 Dose: 2 mg Nystatin (Nystop Topical Powder) 1 applic TOP BID REPLACED BY [facility] Last Admin: 12/18/17 17:25 Dose: 1 applic Senna/Docusate Sodium (Senokot S 50 Mg-8.6 Mg) 1 tab PO BID REPLACED BY [facility] Last Admin: 12/18/17 17:24 Dose: 1 tab - Labs Labs: 12/15/17 07:09 12/15/17 07:09 PT 14.2 SECONDS (9.7-12.2) H 11/29/17 14:41 INR 1.3 11/29/17 14:41 APTT 19 SECONDS (21-34) L 11/29/17 14:41 - Constitutional Appears: No Acute Distress - Head Exam Head Exam: ATRAUMATIC, NORMAL INSPECTION, NORMOCEPHALIC - Eye Exam Eye Exam: Normal appearance - Respiratory Exam Respiratory Exam: NORMAL BREATHING PATTERN. absent: Respiratory Distress Additional comments: chest tube to waterseal, wound vac to suction - Neurological Exam Neurological Exam: Alert, Oriented x3 - Psychiatric Exam Psychiatric exam: Normal Affect, Normal Mood - Skin Skin Exam: Dry, Intact Assessment and Plan - Assessment and Plan (Free Text) Assessment: 42M with necrotizing infection of L chest wall s/p multiple debridements & wound vac placement Plan: - CXR shows persistent L sided effusion - CT back to wall suction - Will plan for removal once effusion resolves Dw Dr Virgen Ness PGY3 <Andres New - Last Filed: 12/19/17 22:18> Objective - Vital Signs/Intake and Output Vital Signs (last 24 hours): Temp Pulse Resp BP Pulse Ox 97.5 F L 76 20 121/80 96 12/19/17 16:50 12/19/17 16:50 12/19/17 16:50 12/19/17 16:50 12/19/17 16:50 Intake and Output: 12/19/17 12/20/17 18:59 06:59 Intake Total 600 900 Output Total 1350 600 Balance -750 300 - Medications Medications: Current Medications Aspirin (Ecotrin) 81 mg PO DAILY REPLACED BY [facility] Last Admin: 12/19/17 10:35 Dose: 81 mg Clonidine HCl (Catapres) 0.1 mg PO BID REPLACED BY [facility] Last Admin: 12/19/17 18:13 Dose: 0.1 mg Fluconazole (Diflucan) 200 mg PO DAILY [facility] PRN Reason: Protocol Last Admin: 12/19/17 10:34 Dose: 200 mg Furosemide (Lasix) 40 mg PO DAILY REPLACED BY [facility] Last Admin: 12/19/17 10:35 Dose: 40 mg Guaifenesin/Dextromethorphan (Robitussin Dm) 15 ml PO Q6H [facility] Last Admin: 12/19/17 18:13 Dose: 15 ml Piperacillin Sod/Tazobactam Sod (Zosyn 3.375 Gm Iv Premix) 3.375 gm in 50 mls @ 100 mls/hr IVPB Q8H [facility] PRN Reason: Protocol Last Admin: 12/19/17 13:48 Dose: 100 mls/hr Linezolid (Zyvox 600mg/300ml D5w) 600 mg in 300 mls @ 200 mls/hr IVPB Q12H [facility] PRN Reason: Protocol Last Admin: 12/19/17 13:42 Dose: 200 mls/hr Morphine Sulfate (Morphine) 2 mg IVP Q4 PRN PRN Reason: Pain, Mild (1-3) Last Admin: 12/19/17 18:09 Dose: 2 mg Nystatin (Nystop Topical Powder) 1 applic TOP BID REPLACED BY [facility] Last Admin: 12/19/17 18:13 Dose: 1 applic Senna/Docusate Sodium (Senokot S 50 Mg-8.6 Mg) 1 tab PO BID REPLACED BY [facility] Last Admin: 12/19/17 18:16 Dose: 1 tab - Labs Labs: 12/15/17 07:09 12/15/17 07:09 PT 14.2 SECONDS (9.7-12.2) H 11/29/17 14:41 INR 1.3 11/29/17 14:41 APTT 19 SECONDS (21-34) L 11/29/17 14:41 Attending/Attestation - Attestation I have personally seen and examined this patient.: Yes I have fully participated in the care of the patient.: Yes I have reviewed all pertinent clinical information, including history, physical exam and plan: Yes Notes (Text): Pt was seen and examined at bedside Agree with above note and assessment Pt is improving clinically CXR chest tube to suction OOB to chair Plan d.w pt in detail Risk and benefit explained in detail
[2017-12-19] MEDS: Docusate-Senna 50 mg-8.6 mg Tab PO SCH ×2 (10:35→18:16)
[2017-12-19] MEDS ORDERED: Morphine 4 MG/ML VIAL IVP ONE ×2 (12:00→14:00)
[2017-12-19] MEDS ORDERED: Lidocaine 2% Jelly (5 ml) TOP ONE (13:45)
--- NOTE | 2017-12-19 21:49 | CP.PCM.PN ---
Subjective - Date & Time of Evaluation Date of Evaluation: 12/19/17 Time of Evaluation: 11:00 - Subjective Subjective: clinically same Objective - Vital Signs/Intake and Output Vital Signs (last 24 hours): Temp Pulse Resp BP Pulse Ox 97.5 F L 76 20 121/80 96 12/19/17 16:50 12/19/17 16:50 12/19/17 16:50 12/19/17 16:50 12/19/17 16:50 Intake and Output: 12/19/17 12/20/17 18:59 06:59 Intake Total 600 Output Total 1350 Balance -750 - Medications Medications: Current Medications Aspirin (Ecotrin) 81 mg PO DAILY [facility] Last Admin: 12/19/17 10:35 Dose: 81 mg Clonidine HCl (Catapres) 0.1 mg PO BID [facility] Last Admin: 12/19/17 18:13 Dose: 0.1 mg Fluconazole (Diflucan) 200 mg PO DAILY [facility] PRN Reason: Protocol Last Admin: 12/19/17 10:34 Dose: 200 mg Furosemide (Lasix) 40 mg PO DAILY [facility] Last Admin: 12/19/17 10:35 Dose: 40 mg Guaifenesin/Dextromethorphan (Robitussin Dm) 15 ml PO Q6H [facility] Last Admin: 12/19/17 18:13 Dose: 15 ml Piperacillin Sod/Tazobactam Sod (Zosyn 3.375 Gm Iv Premix) 3.375 gm in 50 mls @ 100 mls/hr IVPB Q8H [facility] PRN Reason: Protocol Last Admin: 12/19/17 13:48 Dose: 100 mls/hr Linezolid (Zyvox 600mg/300ml D5w) 600 mg in 300 mls @ 200 mls/hr IVPB Q12H [facility] PRN Reason: Protocol Last Admin: 12/19/17 13:42 Dose: 200 mls/hr Morphine Sulfate (Morphine) 2 mg IVP Q4 PRN PRN Reason: Pain, Mild (1-3) Last Admin: 12/19/17 18:09 Dose: 2 mg Nystatin (Nystop Topical Powder) 1 applic TOP BID [facility] Last Admin: 12/19/17 18:13 Dose: 1 applic Senna/Docusate Sodium (Senokot S 50 Mg-8.6 Mg) 1 tab PO BID [facility] Last Admin: 12/19/17 18:16 Dose: 1 tab - Labs Labs: 12/15/17 07:09 12/15/17 07:09 PT 14.2 SECONDS (9.7-12.2) H 11/29/17 14:41 INR 1.3 11/29/17 14:41 APTT 19 SECONDS (21-34) L 11/29/17 14:41 - Constitutional Appears: Well - Head Exam Head Exam: ATRAUMATIC, NORMAL INSPECTION, NORMOCEPHALIC - Eye Exam Eye Exam: EOMI, Normal appearance, PERRL Pupil Exam: NORMAL ACCOMODATION, PERRL - ENT Exam ENT Exam: Mucous Membranes Moist, Normal Exam - Neck Exam Neck Exam: Full ROM, Normal Inspection. absent: Lymphadenopathy - Respiratory Exam Respiratory Exam: Decreased Breath Sounds - Cardiovascular Exam Cardiovascular Exam: REGULAR RHYTHM, +S1, +S2 - GI/Abdominal Exam GI & Abdominal Exam: Soft, Diminished Bowel Sounds - Rectal Exam Rectal Exam: Deferred Assessment and Plan (1) Abdominal pain Status: Acute (2) Abscess Status: Acute (3) Left upper quadrant abdominal swelling Status: Acute (4) Pleural effusion Status: Acute (5) Pneumonia Status: Acute (6) Pulmonary hypertension Status: Acute (7) Bronchitis Status: Acute (8) Bronchospasm Status: Acute (9) Chronic venous stasis dermatitis Status: Acute (10) Cough Status: Acute (11) Influenza-like illness Status: Acute (12) Leg edema Status: Acute (13) Leg swelling Status: Acute (14) Medical assessment Status: Acute (15) Morbid obesity Status: Acute (16) Pedal edema Status: Acute (17) Reactive airway disease Status: Acute (18) Rhabdomyolysis Status: Acute (19) Tinea pedis Status: Acute (20) Upper respiratory infection Status: Acute (21) Uvulitis Status: Acute
--- NOTE | 2017-12-19 22:27 | CP.PCM.PN ---
Subjective - Date & Time of Evaluation Date of Evaluation: 12/19/17 Time of Evaluation: 22:27 - Subjective Subjective: AFEBRILE, OUT OF BED ON CHAIR. DENIES SHORTNESS OF BREATH OR CHEST PAIN. OCCASIONAL COUGH. CHEST TUBE TO WATERSEAL. WOUND VAC IN PLACE TO SUCTION. .LABS REVIEWED. 12/15 17-TISSUE CULTURE+VE VANCOMYCIN RESISTANT ENTEROCOCCUS FEACIUM/ [facility] ALBICANS. 12/15 17 WOUND CULTURE SENSITIVITY VRE/[facility] ALBICANS ON ZOSYN 3.375 Q 8 HOURLY ON ZYVOX 600 MG EVERY 12 HOURLY DIFLUCAN 200 MG BY MOUTH OD DAILY. Objective - Vital Signs/Intake and Output Vital Signs (last 24 hours): Temp Pulse Resp BP Pulse Ox 97.5 F L 76 20 121/80 96 12/19/17 16:50 12/19/17 16:50 12/19/17 16:50 12/19/17 16:50 12/19/17 16:50 Intake and Output: 12/19/17 12/20/17 18:59 06:59 Intake Total 600 900 Output Total 1350 600 Balance -750 300 - Medications Medications: Current Medications Aspirin (Ecotrin) 81 mg PO DAILY [facility] Last Admin: 12/19/17 10:35 Dose: 81 mg Clonidine HCl (Catapres) 0.1 mg PO BID [facility] Last Admin: 12/19/17 18:13 Dose: 0.1 mg Fluconazole (Diflucan) 200 mg PO DAILY [facility] PRN Reason: Protocol Last Admin: 12/19/17 10:34 Dose: 200 mg Furosemide (Lasix) 40 mg PO DAILY [facility] Last Admin: 12/19/17 10:35 Dose: 40 mg Guaifenesin/Dextromethorphan (Robitussin Dm) 15 ml PO Q6H [facility] Last Admin: 12/19/17 18:13 Dose: 15 ml Piperacillin Sod/Tazobactam Sod (Zosyn 3.375 Gm Iv Premix) 3.375 gm in 50 mls @ 100 mls/hr IVPB Q8H [facility] PRN Reason: Protocol Last Admin: 12/19/17 13:48 Dose: 100 mls/hr Linezolid (Zyvox 600mg/300ml D5w) 600 mg in 300 mls @ 200 mls/hr IVPB Q12H [facility] PRN Reason: Protocol Last Admin: 12/19/17 13:42 Dose: 200 mls/hr Morphine Sulfate (Morphine) 2 mg IVP Q4 PRN PRN Reason: Pain, Mild (1-3) Last Admin: 12/19/17 18:09 Dose: 2 mg Nystatin (Nystop Topical Powder) 1 applic TOP BID [facility] Last Admin: 12/19/17 18:13 Dose: 1 applic Senna/Docusate Sodium (Senokot S 50 Mg-8.6 Mg) 1 tab PO BID [facility] Last Admin: 12/19/17 18:16 Dose: 1 tab - Labs Labs: 12/15/17 07:09 12/15/17 07:09 PT 14.2 SECONDS (9.7-12.2) H 11/29/17 14:41 INR 1.3 11/29/17 14:41 APTT 19 SECONDS (21-34) L 11/29/17 14:41 - Constitutional Appears: No Acute Distress - Head Exam Head Exam: NORMAL INSPECTION - Eye Exam Eye Exam: EOMI, PERRL - ENT Exam ENT Exam: Normal Oropharynx - Neck Exam Neck Exam: Normal Inspection - Respiratory Exam Respiratory Exam: Decreased Breath Sounds (LEFT LUNG.), NORMAL BREATHING PATTERN (CHEST TUBE TO WATERSEAL.) - Cardiovascular Exam Cardiovascular Exam: REGULAR RHYTHM, +S1, +S2 - GI/Abdominal Exam GI & Abdominal Exam: Soft, Normal Bowel Sounds (CHEST TUBE TO WOUND vac.) - Extremities Exam Extremities Exam: Pedal Edema. absent: Calf Tenderness - Neurological Exam Neurological Exam: Awake, CN II-XII Intact, Normal Gait, Oriented x3, Reflexes Normal - Psychiatric Exam Psychiatric exam: Normal Mood - Skin Skin Exam: Normal Color, Warm Assessment and Plan (1) Pneumonia Status: Acute (2) Left upper quadrant abdominal swelling Status: Acute (3) Bronchitis Status: Acute (4) Morbid obesity Status: Acute - Assessment and Plan (Free Text) Plan: CONTINUE IV ZOSYN 3.375 EVERY 8 HOURLY 11/15/17-4WKS 12/13/17 ON ZYVOX 600 MG EVERY 12 HOURLY 12/18/17 FOR VRE DIFLUCAN 200 MG BY MOUTH OD DAILY. 12/18/17 FOR [facility] ALBICANS -wound vac changed on 12/15 AND ABDOMINAL WALL I/D AND TISSUE BX TAKEN. -F/U BX TISSUES /AND CULTURES FOR AFB CULTURE AND STAIN. -LOCAL WOUND CARE/AND VAC CHANGES PER SURGICAL TEAM MWF. -NYSTATIN POWDER TO BOTH GROINS TID PRN.
[2017-12-20] MEDS: Linezolid 600 mg in D5W 300 ml 600 MG/300 ML BAG IVPB SCH ×2 (02:09→13:20)
[2017-12-20] MEDS: Morphine 4 MG/ML VIAL IVP PRN ×5 (03:02→23:31)
[2017-12-20] MEDS: guaiFENesin DM 100 mg-10 mg/5 ml UD PO SCH ×3 (05:45→18:11)
[2017-12-20] MEDS: Piperacill/Tazo 3.375gm in Dex 3.375 GM/50 ML BAG IVPB SCH ×3 (05:45→22:20)
[2017-12-20 08:03] LABS: BASO # 0.1 K/uL (0.0-0.2); BASO % 0.9 % (0.0-2.0); EOS # 0.5 K/uL (0.0-0.7); EOS % 6.8 % (0.0-4.0); LYMPH # 1.3 K/uL (1.0-4.3); LYMPH % 17.1 % (20.0-40.0); MEAN CELL VOLUME 80.4 fL (80.0-94.0); MEAN CORPUSCULAR HEMOGLOBIN 27.3 pg (27.0-31.0); MEAN CORPUSCULAR HGB CONC 33.9 g/dL (33.0-37.0); MEAN PLATELET VOLUME 7.5 fL (7.2-11.7); MONO # 0.7 K/uL (0.0-0.8); MONO % 8.7 % (0.0-10.0); NEUT # 5.1 K/uL (1.8-7.0); NEUT % 66.5 % (50.0-75.0); RBC 4.03 Mil/uL (4.40-5.90); RED CELL DISTRIBUTION WIDTH 16.1 % (11.5-14.5); WHITE BLOOD COUNT 7.7 K/uL (4.8-10.8)
[2017-12-20 08:25] LABS: BLOOD UREA NITROGEN 9 mg/dL (9-20); CALCIUM 8.3 mg/dl (8.6-10.4); GFR AFRICAN-AMERICAN > 60; GFR NON-AFRICAN AMERICAN > 60
--- NOTE | 2017-12-20 08:29 | RAD ---
HISTORY: left pleural effusion COMPARISON: Chest radiograph dated 12/18/2017. FINDINGS: LUNGS: Hazy change in the right lung base. PLEURA: No definite left pleural effusion. Questionable small right pleural effusion. No pneumothorax apparent. CARDIOVASCULAR: Cardiomediastinal silhouette unchanged. OSSEOUS STRUCTURES: Unchanged. VISUALIZED UPPER ABDOMEN: Normal. OTHER FINDINGS: Left-sided large-bore chest tube, unchanged. IMPRESSION: Limited examination. No definite left-sided will effusion. Questionable right pleural effusion. No appreciable pneumothorax.
[2017-12-20] MEDS: Docusate-Senna 50 mg-8.6 mg Tab PO SCH ×2 (09:11→18:10)
--- NOTE | 2017-12-20 09:39 | CP.PCM.PN ---
Subjective - Date & Time of Evaluation Date of Evaluation: 12/20/17 Time of Evaluation: 09:00 - Subjective Subjective: clinically same Objective - Vital Signs/Intake and Output Vital Signs (last 24 hours): Temp Pulse Resp BP Pulse Ox 98.0 F 79 18 127/82 95 12/20/17 07:00 12/20/17 07:00 12/20/17 07:00 12/20/17 09:11 12/20/17 07:00 Intake and Output: 12/20/17 12/20/17 06:59 18:59 Intake Total 900 Output Total 610 10 Balance 290 -10 - Medications Medications: Current Medications Aspirin (Ecotrin) 81 mg PO DAILY [facility] Last Admin: 12/20/17 09:11 Dose: 81 mg Clonidine HCl (Catapres) 0.1 mg PO BID [facility] Last Admin: 12/20/17 09:11 Dose: 0.1 mg Fluconazole (Diflucan) 200 mg PO DAILY [facility] PRN Reason: Protocol Last Admin: 12/20/17 09:11 Dose: 200 mg Furosemide (Lasix) 40 mg PO DAILY [facility] Last Admin: 12/20/17 09:11 Dose: 40 mg Guaifenesin/Dextromethorphan (Robitussin Dm) 15 ml PO Q6H [facility] Last Admin: 12/20/17 05:45 Dose: 15 ml Piperacillin Sod/Tazobactam Sod (Zosyn 3.375 Gm Iv Premix) 3.375 gm in 50 mls @ 100 mls/hr IVPB Q8H [facility] PRN Reason: Protocol Last Admin: 12/20/17 05:45 Dose: 100 mls/hr Linezolid (Zyvox 600mg/300ml D5w) 600 mg in 300 mls @ 200 mls/hr IVPB Q12H [facility] PRN Reason: Protocol Last Admin: 12/20/17 02:09 Dose: 200 mls/hr Morphine Sulfate (Morphine) 2 mg IVP Q4 PRN PRN Reason: Pain, Mild (1-3) Last Admin: 12/20/17 03:02 Dose: 2 mg Nystatin (Nystop Topical Powder) 1 applic TOP BID [facility] Last Admin: 12/20/17 09:14 Dose: 1 applic Senna/Docusate Sodium (Senokot S 50 Mg-8.6 Mg) 1 tab PO BID [facility] Last Admin: 12/20/17 09:11 Dose: 1 tab - Labs Labs: 12/20/17 07:55 12/20/17 07:55 PT 14.2 SECONDS (9.7-12.2) H 11/29/17 14:41 INR 1.3 11/29/17 14:41 APTT 19 SECONDS (21-34) L 11/29/17 14:41 - Constitutional Appears: Well - Head Exam Head Exam: ATRAUMATIC, NORMAL INSPECTION, NORMOCEPHALIC - Eye Exam Eye Exam: EOMI, Normal appearance, PERRL Pupil Exam: NORMAL ACCOMODATION, PERRL - ENT Exam ENT Exam: Mucous Membranes Moist, Normal Exam - Neck Exam Neck Exam: Full ROM, Normal Inspection. absent: Lymphadenopathy - Respiratory Exam Respiratory Exam: Decreased Breath Sounds - Cardiovascular Exam Cardiovascular Exam: REGULAR RHYTHM, +S1, +S2 - GI/Abdominal Exam GI & Abdominal Exam: Soft, Diminished Bowel Sounds - Rectal Exam Rectal Exam: Deferred Assessment and Plan (1) Abdominal pain Status: Acute (2) Abscess Status: Acute (3) Left upper quadrant abdominal swelling Status: Acute (4) Pleural effusion Status: Acute (5) Pneumonia Status: Acute (6) Pulmonary hypertension Status: Acute (7) Bronchitis Status: Acute (8) Bronchospasm Status: Acute (9) Chronic venous stasis dermatitis Status: Acute (10) Cough Status: Acute (11) Influenza-like illness Status: Acute (12) Leg edema Status: Acute (13) Leg swelling Status: Acute (14) Medical assessment Status: Acute (15) Morbid obesity Status: Acute (16) Pedal edema Status: Acute (17) Reactive airway disease Status: Acute (18) Rhabdomyolysis Status: Acute (19) Tinea pedis Status: Acute (20) Upper respiratory infection Status: Acute (21) Uvulitis Status: Acute
--- NOTE | 2017-12-20 18:01 | CP.PCM.PN ---
Subjective - Date & Time of Evaluation Date of Evaluation: 12/20/17 Time of Evaluation: 10:40 - Subjective Subjective: Pt s/e at bedside this AM. No adverse events overnight. patient denies any worsened pain, SOB, fevers or any other symptoms. Wound vac functioning well with minimal output Objective - Vital Signs/Intake and Output Vital Signs (last 24 hours): Temp Pulse Resp BP Pulse Ox 97.9 F 74 20 125/81 99 12/20/17 15:00 12/20/17 15:00 12/20/17 15:00 12/20/17 15:00 12/20/17 15:00 Intake and Output: 12/20/17 12/20/17 06:59 18:59 Intake Total 900 800 Output Total 610 630 Balance 290 170 - Medications Medications: Current Medications Aspirin (Ecotrin) 81 mg PO DAILY [facility] Last Admin: 12/20/17 09:11 Dose: 81 mg Clonidine HCl (Catapres) 0.1 mg PO BID [facility] Last Admin: 12/20/17 09:11 Dose: 0.1 mg Fluconazole (Diflucan) 200 mg PO DAILY [facility] PRN Reason: Protocol Last Admin: 12/20/17 09:11 Dose: 200 mg Furosemide (Lasix) 40 mg PO DAILY [facility] Last Admin: 12/20/17 09:11 Dose: 40 mg Guaifenesin/Dextromethorphan (Robitussin Dm) 15 ml PO Q6H [facility] Last Admin: 12/20/17 11:55 Dose: 15 ml Piperacillin Sod/Tazobactam Sod (Zosyn 3.375 Gm Iv Premix) 3.375 gm in 50 mls @ 100 mls/hr IVPB Q8H [facility] PRN Reason: Protocol Last Admin: 12/20/17 15:03 Dose: 100 mls/hr Linezolid (Zyvox 600mg/300ml D5w) 600 mg in 300 mls @ 200 mls/hr IVPB Q12H [facility] PRN Reason: Protocol Last Admin: 12/20/17 13:20 Dose: 200 mls/hr Morphine Sulfate (Morphine) 2 mg IVP Q4 PRN PRN Reason: Pain, Mild (1-3) Last Admin: 12/20/17 15:19 Dose: 2 mg Nystatin (Nystop Topical Powder) 1 applic TOP BID [facility] Last Admin: 12/20/17 09:14 Dose: 1 applic Senna/Docusate Sodium (Senokot S 50 Mg-8.6 Mg) 1 tab PO BID [facility] Last Admin: 12/20/17 09:11 Dose: 1 tab - Labs Labs: 12/20/17 07:55 12/20/17 07:55 PT 14.2 SECONDS (9.7-12.2) H 11/29/17 14:41 INR 1.3 11/29/17 14:41 APTT 19 SECONDS (21-34) L 11/29/17 14:41 - Constitutional Appears: Well, Non-toxic, No Acute Distress - Head Exam Head Exam: ATRAUMATIC, NORMOCEPHALIC - Eye Exam Eye Exam: Normal appearance. absent: Conjunctival injection, Scleral icterus - ENT Exam ENT Exam: Mucous Membranes Moist, Normal Oropharynx - Respiratory Exam Respiratory Exam: NORMAL BREATHING PATTERN. absent: Accessory Muscle Use, Respiratory Distress Additional comments: chest tube in place in the left chest with minimal serous output. Wound vac in palce with good seal, no surrounding erythema - GI/Abdominal Exam GI & Abdominal Exam: Soft. absent: Distended - Neurological Exam Neurological Exam: Alert, Awake, Oriented x3 - Psychiatric Exam Psychiatric exam: Normal Affect, Normal Mood - Skin Skin Exam: Dry, Normal Color, Warm Assessment and Plan - Assessment and Plan (Free Text) Assessment: 42M with necrotizing infection of L chest wall s/p multiple debridements & wound vac placement and left plerual effusion CXR: resolution of prior left pleural effusion Plan: - D/C chest tube today -continue continuous wound vac therapy -change wound vac on Monday -Continue antibiotics and PRN pain meidication -encourage ambulation Dw Dr Virgen Valentni, PGY2
--- NOTE | 2017-12-20 23:04 | CP.PCM.PN ---
Subjective - Date & Time of Evaluation Date of Evaluation: 12/20/17 Time of Evaluation: 23:04 - Subjective Subjective: AFEBRILE, OUT OF BED ON CHAIR. S/P CHEST TUBE REMOVAL. ON IV ANTIBIOTICS ON ZOSYN 3.375 Q 8 HOURLY ON ZYVOX 600 MG EVERY 12 HOURLY INCREASE DIFLUCAN 200 MG BY MOUTH BID DAILY. Objective - Vital Signs/Intake and Output Vital Signs (last 24 hours): Temp Pulse Resp BP Pulse Ox 97.9 F 74 20 125/81 99 12/20/17 15:00 12/20/17 15:00 12/20/17 15:00 12/20/17 15:00 12/20/17 15:00 Intake and Output: 12/20/17 12/21/17 18:59 06:59 Intake Total 800 Output Total 630 Balance 170 - Medications Medications: Current Medications Aspirin (Ecotrin) 81 mg PO DAILY [facility] Last Admin: 12/20/17 09:11 Dose: 81 mg Clonidine HCl (Catapres) 0.1 mg PO BID [facility] Last Admin: 12/20/17 18:10 Dose: 0.1 mg Enoxaparin Sodium (Lovenox) 40 mg SC DAILY [facility] Fluconazole (Diflucan) 200 mg PO DAILY [facility] PRN Reason: Protocol Last Admin: 12/20/17 09:11 Dose: 200 mg Furosemide (Lasix) 40 mg PO DAILY [facility] Last Admin: 12/20/17 09:11 Dose: 40 mg Guaifenesin/Dextromethorphan (Robitussin Dm) 15 ml PO Q6H [facility] Last Admin: 12/20/17 18:11 Dose: 15 ml Linezolid (Zyvox 600mg/300ml D5w) 600 mg in 300 mls @ 200 mls/hr IVPB Q12H [facility] PRN Reason: Protocol Last Admin: 12/20/17 13:20 Dose: 200 mls/hr Morphine Sulfate (Morphine) 2 mg IVP Q4 PRN PRN Reason: Pain, Mild (1-3) Last Admin: 12/20/17 19:24 Dose: 2 mg Nystatin (Nystop Topical Powder) 1 applic TOP BID [facility] Last Admin: 12/20/17 18:10 Dose: 1 applic Senna/Docusate Sodium (Senokot S 50 Mg-8.6 Mg) 1 tab PO BID [facility] Last Admin: 12/20/17 18:10 Dose: 1 tab - Labs Labs: 12/20/17 07:55 12/20/17 07:55 PT 14.2 SECONDS (9.7-12.2) H 11/29/17 14:41 INR 1.3 11/29/17 14:41 APTT 19 SECONDS (21-34) L 11/29/17 14:41 - Constitutional Appears: No Acute Distress - Head Exam Head Exam: NORMAL INSPECTION - Eye Exam Eye Exam: EOMI, PERRL - ENT Exam ENT Exam: Normal Oropharynx - Neck Exam Neck Exam: Normal Inspection - Respiratory Exam Respiratory Exam: Decreased Breath Sounds (LT. BASE) - Cardiovascular Exam Cardiovascular Exam: REGULAR RHYTHM, +S1, +S2 - GI/Abdominal Exam GI & Abdominal Exam: Soft, Normal Bowel Sounds - Extremities Exam Extremities Exam: Pedal Edema. absent: Calf Tenderness - Neurological Exam Neurological Exam: Alert, Awake, CN II-XII Intact, Normal Gait - Psychiatric Exam Psychiatric exam: Normal Mood - Skin Skin Exam: Rash (GROINS-MONILIASIS), Warm Assessment and Plan (1) Pneumonia Status: Acute (2) Left upper quadrant abdominal swelling Status: Acute (3) Bronchitis Status: Acute (4) Morbid obesity Status: Acute - Assessment and Plan (Free Text) Plan: CONTINUE IV ZOSYN 3.375 EVERY 8 HOURLY 11/15/17-FOR TOTAL OF 6WKS ON ZYVOX 600 MG EVERY 12 HOURLY 12/18/17 FOR VRE X4WKS- CAN CHANGE TO PO IF IV NOT AVAILABLE INCREASE DIFLUCAN 200 MG BY MOUTH BID DAILY. 12/18/17 FOR [facility] ALBICANS IN TISSUE/CULTURE X 4WKS. MONITOR CBC,LFTS AND RENAL FUNCTION WEEKLY. -F/U BX TISSUES /AND CULTURES FOR AFB CULTURE AND STAINS. -LOCAL WOUND CARE/AND VAC CHANGES PER SURGICAL TEAM MWF. -NYSTATIN POWDER TO BOTH GROINS TID PRN. -WILL FOLLOW PT. WHILE IN HOSPITAL.
[2017-12-21] MEDS: Linezolid 600 mg in D5W 300 ml 600 MG/300 ML BAG IVPB SCH ×2 (00:59→13:14)
[2017-12-21] MEDS: guaiFENesin DM 100 mg-10 mg/5 ml UD PO SCH ×3 (01:00→17:21)
[2017-12-21] MEDS: Morphine 4 MG/ML VIAL IVP PRN ×5 (03:38→20:01)
[2017-12-21] MEDS: Piperacill/Tazo 3.375gm in Dex 3.375 GM/50 ML BAG IVPB SCH ×3 (05:52→20:01)
--- NOTE | 2017-12-21 08:27 | RAD ---
HISTORY: s/p removal of chest tube COMPARISON: 12/20/2017 at 7:40 a.m. FINDINGS: LUNGS: There is persistent consolidation in the right lower lobe. The left lung is clear. PLEURA: Suspect small right pleural effusion, no pneumothorax apparent. CARDIOVASCULAR: Normal. OSSEOUS STRUCTURES: No significant abnormalities. VISUALIZED UPPER ABDOMEN: Normal. OTHER FINDINGS: None. IMPRESSION: No change in right lower lobe consolidation and right pleural effusion.
--- NOTE | 2017-12-21 08:35 | CP.PCM.PN ---
Subjective - Date & Time of Evaluation Date of Evaluation: 12/21/17 Time of Evaluation: 07:00 - Subjective Subjective: Surgery progress note for Dr. Rolando Moreols, PGY-1 Pt S & E at bedside. Pt at baseline pulmonary status. Reports some pain at former insertion site. Wound vac in place- minimal output. Denies F & C. Sitting in chair with O2 via NC. Objective - Vital Signs/Intake and Output Vital Signs (last 24 hours): Temp Pulse Resp BP Pulse Ox 98.1 F 68 20 119/72 100 12/21/17 07:00 12/21/17 07:00 12/21/17 07:00 12/21/17 07:00 12/21/17 07:00 Intake and Output: 12/21/17 12/21/17 06:59 18:59 Output Total 550 Balance -550 - Medications Medications: Current Medications Aspirin (Ecotrin) 81 mg PO DAILY [facility] Last Admin: 12/20/17 09:11 Dose: 81 mg Clonidine HCl (Catapres) 0.1 mg PO BID [facility] Last Admin: 12/20/17 18:10 Dose: 0.1 mg Enoxaparin Sodium (Lovenox) 40 mg SC DAILY [facility] Fluconazole (Diflucan) 200 mg PO BID [facility] PRN Reason: Protocol Furosemide (Lasix) 40 mg PO DAILY [facility] Last Admin: 12/20/17 09:11 Dose: 40 mg Guaifenesin/Dextromethorphan (Robitussin Dm) 15 ml PO Q6H [facility] Last Admin: 12/21/17 01:00 Dose: 15 ml Linezolid (Zyvox 600mg/300ml D5w) 600 mg in 300 mls @ 200 mls/hr IVPB Q12H [facility] PRN Reason: Protocol Last Admin: 12/21/17 00:59 Dose: 200 mls/hr Piperacillin Sod/Tazobactam Sod (Zosyn 3.375 Gm Iv Premix) 3.375 gm in 50 mls @ 100 mls/hr IVPB Q8H [facility] PRN Reason: Protocol Last Admin: 12/21/17 05:52 Dose: 100 mls/hr Morphine Sulfate (Morphine) 2 mg IVP Q4 PRN PRN Reason: Pain, Mild (1-3) Last Admin: 12/21/17 07:58 Dose: 2 mg Nystatin (Nystop Topical Powder) 1 applic TOP BID [facility] Last Admin: 12/20/17 18:10 Dose: 1 applic Senna/Docusate Sodium (Senokot S 50 Mg-8.6 Mg) 1 tab PO BID [facility] Last Admin: 12/20/17 18:10 Dose: 1 tab - Labs Labs: 12/20/17 07:55 12/20/17 07:55 PT 14.2 SECONDS (9.7-12.2) H 11/29/17 14:41 INR 1.3 11/29/17 14:41 APTT 19 SECONDS (21-34) L 11/29/17 14:41 - Constitutional Appears: Non-toxic, No Acute Distress - Head Exam Head Exam: ATRAUMATIC, NORMAL INSPECTION, NORMOCEPHALIC - Eye Exam Eye Exam: EOMI, Normal appearance - ENT Exam ENT Exam: Mucous Membranes Moist, Normal Exam - Neck Exam Neck Exam: Full ROM, Normal Inspection - Respiratory Exam Respiratory Exam: NORMAL BREATHING PATTERN - Cardiovascular Exam Cardiovascular Exam: REGULAR RHYTHM, +S1, +S2 - GI/Abdominal Exam GI & Abdominal Exam: Soft, Normal Bowel Sounds. absent: Distended (morbidly obese), Tenderness - Extremities Exam Extremities Exam: Normal Inspection, Pedal Edema (bilateral) - Neurological Exam Neurological Exam: Alert, Awake, CN II-XII Intact, Oriented x3 - Psychiatric Exam Psychiatric exam: Normal Affect, Normal Mood - Skin Skin Exam: Dry, Intact, Normal Color, Warm Additional comments: Dressing in place over left chest tube - clean/dry/intact Assessment and Plan - Assessment and Plan (Free Text) Assessment: 42M with necrotizing infection of L chest wall s/p multiple debridements & wound vac placement and left plerual effusion Plan: Wound vac changes as per wound care nurse Wound vac therapy at 125mm Hg, continuous vacuum Wound vac sponge size small to be cut to size of wound as per wound care nurse Pt cleared for d/c to rehab with wound vac in place from surgical standpoint Ok to remove chest tube insertion site dressing on Friday 12/22- if site is leaking, ok to place smaller dressing over site Cont further mgmt as per primary team & wound care nurse Will PRESTON attending Tamy, PGY-1
[2017-12-21] MEDS: Docusate-Senna 50 mg-8.6 mg Tab PO SCH (09:54)
[2017-12-21] MEDS: Enoxaparin 40 mg Syringe SC SCH (09:55)
--- NOTE | 2017-12-21 11:32 | CP.PCM.PN ---
Subjective - Date & Time of Evaluation Date of Evaluation: 12/21/17 Time of Evaluation: 09:00 - Subjective Subjective: clinically same Objective - Vital Signs/Intake and Output Vital Signs (last 24 hours): Temp Pulse Resp BP Pulse Ox 98.1 F 68 20 123/76 100 12/21/17 07:00 12/21/17 07:00 12/21/17 07:00 12/21/17 09:54 12/21/17 07:00 Intake and Output: 12/21/17 12/21/17 06:59 18:59 Output Total 550 Balance -550 - Medications Medications: Current Medications Aspirin (Ecotrin) 81 mg PO DAILY [facility] Last Admin: 12/21/17 09:55 Dose: 81 mg Clonidine HCl (Catapres) 0.1 mg PO BID [facility] Last Admin: 12/21/17 09:55 Dose: 0.1 mg Enoxaparin Sodium (Lovenox) 40 mg SC DAILY [facility] Last Admin: 12/21/17 09:55 Dose: 40 mg Fluconazole (Diflucan) 200 mg PO BID [facility] PRN Reason: Protocol Last Admin: 12/21/17 09:55 Dose: 200 mg Furosemide (Lasix) 40 mg PO DAILY [facility] Last Admin: 12/21/17 09:54 Dose: 40 mg Guaifenesin/Dextromethorphan (Robitussin Dm) 15 ml PO Q6H [facility] Last Admin: 12/21/17 01:00 Dose: 15 ml Linezolid (Zyvox 600mg/300ml D5w) 600 mg in 300 mls @ 200 mls/hr IVPB Q12H [facility] PRN Reason: Protocol Last Admin: 12/21/17 00:59 Dose: 200 mls/hr Piperacillin Sod/Tazobactam Sod (Zosyn 3.375 Gm Iv Premix) 3.375 gm in 50 mls @ 100 mls/hr IVPB Q8H [facility] PRN Reason: Protocol Last Admin: 12/21/17 05:52 Dose: 100 mls/hr Morphine Sulfate (Morphine) 2 mg IVP Q4 PRN PRN Reason: Pain, Mild (1-3) Last Admin: 12/21/17 07:58 Dose: 2 mg Nystatin (Nystop Topical Powder) 1 applic TOP BID [facility] Last Admin: 12/21/17 09:53 Dose: 1 applic Senna/Docusate Sodium (Senokot S 50 Mg-8.6 Mg) 1 tab PO BID [facility] Last Admin: 12/21/17 09:54 Dose: 1 tab - Labs Labs: 12/20/17 07:55 12/20/17 07:55 PT 14.2 SECONDS (9.7-12.2) H 11/29/17 14:41 INR 1.3 11/29/17 14:41 APTT 19 SECONDS (21-34) L 11/29/17 14:41 - Constitutional Appears: Well - Head Exam Head Exam: ATRAUMATIC, NORMAL INSPECTION, NORMOCEPHALIC - Eye Exam Eye Exam: EOMI, Normal appearance, PERRL Pupil Exam: NORMAL ACCOMODATION, PERRL - ENT Exam ENT Exam: Mucous Membranes Moist, Normal Exam - Neck Exam Neck Exam: Full ROM, Normal Inspection. absent: Lymphadenopathy - Respiratory Exam Respiratory Exam: Decreased Breath Sounds - Cardiovascular Exam Cardiovascular Exam: REGULAR RHYTHM, +S1, +S2 - GI/Abdominal Exam GI & Abdominal Exam: Soft, Diminished Bowel Sounds - Rectal Exam Rectal Exam: Deferred Assessment and Plan (1) Abdominal pain Status: Acute (2) Abscess Status: Acute (3) Left upper quadrant abdominal swelling Status: Acute (4) Pleural effusion Status: Acute (5) Pneumonia Status: Acute (6) Pulmonary hypertension Status: Acute (7) Bronchitis Status: Acute (8) Bronchospasm Status: Acute (9) Chronic venous stasis dermatitis Status: Acute (10) Cough Status: Acute (11) Influenza-like illness Status: Acute (12) Leg edema Status: Acute (13) Leg swelling Status: Acute (14) Medical assessment Status: Acute (15) Morbid obesity Status: Acute (16) Pedal edema Status: Acute (17) Reactive airway disease Status: Acute (18) Rhabdomyolysis Status: Acute (19) Tinea pedis Status: Acute (20) Upper respiratory infection Status: Acute (21) Uvulitis Status: Acute - Assessment and Plan (Free Text) Plan: Posterior chest tube removal patient is out of bed to the chair on Zosyn and Zyvox Transfer the patient's to LTAC versus rehab Patient is also on the Diflucan Post for possible discharge Continue same
[2017-12-22] MEDS: Morphine 4 MG/ML VIAL IVP PRN ×6 (00:36→22:51)
[2017-12-22] MEDS: guaiFENesin DM 100 mg-10 mg/5 ml UD PO SCH ×4 (00:41→18:48)
[2017-12-22] MEDS: Linezolid 600 mg in D5W 300 ml 600 MG/300 ML BAG IVPB SCH ×2 (01:56→14:19)
[2017-12-22] MEDS: Piperacill/Tazo 3.375gm in Dex 3.375 GM/50 ML BAG IVPB SCH ×3 (04:51→20:56)
[2017-12-22] MEDS ORDERED: Lidocaine 2% Inj (20ml) INFIL STA (08:28)
[2017-12-22] MEDS: Enoxaparin 40 mg Syringe SC SCH (10:16)
--- NOTE | 2017-12-22 17:18 | CP.PCM.PN ---
Subjective - Date & Time of Evaluation Date of Evaluation: 12/22/17 Time of Evaluation: 09:40 - Subjective Subjective: clinically same Objective - Vital Signs/Intake and Output Vital Signs (last 24 hours): Temp Pulse Resp BP Pulse Ox 98.3 F 70 20 138/63 97 12/22/17 15:00 12/22/17 15:00 12/22/17 15:00 12/22/17 15:00 12/22/17 15:00 Intake and Output: 12/22/17 12/22/17 06:59 18:59 Output Total 710 1200 Balance -710 -1200 - Medications Medications: Current Medications Clonidine HCl (Catapres) 0.1 mg PO BID [facility] Last Admin: 12/22/17 10:08 Dose: 0.1 mg Enoxaparin Sodium (Lovenox) 40 mg SC DAILY [facility] Last Admin: 12/22/17 10:16 Dose: 40 mg Fluconazole (Diflucan) 200 mg PO BID [facility] PRN Reason: Protocol Last Admin: 12/22/17 12:41 Dose: 200 mg Furosemide (Lasix) 40 mg PO DAILY [facility] Last Admin: 12/22/17 10:08 Dose: 40 mg Guaifenesin/Dextromethorphan (Robitussin Dm) 15 ml PO Q6H [facility] Last Admin: 12/22/17 12:42 Dose: 15 ml Linezolid (Zyvox 600mg/300ml D5w) 600 mg in 300 mls @ 200 mls/hr IVPB Q12H [facility] PRN Reason: Protocol Last Admin: 12/22/17 14:19 Dose: 200 mls/hr Piperacillin Sod/Tazobactam Sod (Zosyn 3.375 Gm Iv Premix) 3.375 gm in 50 mls @ 100 mls/hr IVPB Q8H [facility] PRN Reason: Protocol Last Admin: 12/22/17 12:41 Dose: 100 mls/hr Morphine Sulfate (Morphine) 2 mg IVP Q4 PRN PRN Reason: Pain, moderate (4-7) Last Admin: 12/22/17 14:39 Dose: 2 mg Nystatin (Nystop Topical Powder) 1 applic TOP BID [facility] Last Admin: 12/22/17 10:15 Dose: 1 applic - Labs Labs: 12/20/17 07:55 12/20/17 07:55 PT 14.2 SECONDS (9.7-12.2) H 11/29/17 14:41 INR 1.3 11/29/17 14:41 APTT 19 SECONDS (21-34) L 11/29/17 14:41 - Constitutional Appears: Well - Head Exam Head Exam: ATRAUMATIC, NORMAL INSPECTION, NORMOCEPHALIC - Eye Exam Eye Exam: EOMI, Normal appearance, PERRL Pupil Exam: NORMAL ACCOMODATION, PERRL - ENT Exam ENT Exam: Mucous Membranes Moist, Normal Exam - Neck Exam Neck Exam: Full ROM, Normal Inspection. absent: Lymphadenopathy - Respiratory Exam Respiratory Exam: Decreased Breath Sounds - Cardiovascular Exam Cardiovascular Exam: REGULAR RHYTHM, +S1, +S2 - GI/Abdominal Exam GI & Abdominal Exam: Soft, Diminished Bowel Sounds - Rectal Exam Rectal Exam: Deferred Assessment and Plan (1) Abdominal pain Status: Acute (2) Abscess Status: Acute (3) Left upper quadrant abdominal swelling Status: Acute (4) Pleural effusion Status: Acute (5) Pneumonia Status: Acute (6) Pulmonary hypertension Status: Acute (7) Bronchitis Status: Acute (8) Bronchospasm Status: Acute (9) Chronic venous stasis dermatitis Status: Acute (10) Cough Status: Acute (11) Influenza-like illness Status: Acute (12) Leg edema Status: Acute (13) Leg swelling Status: Acute (14) Medical assessment Status: Acute (15) Morbid obesity Status: Acute (16) Pedal edema Status: Acute (17) Reactive airway disease Status: Acute (18) Rhabdomyolysis Status: Acute (19) Tinea pedis Status: Acute (20) Upper respiratory infection Status: Acute (21) Uvulitis Status: Acute
--- NOTE | 2017-12-22 18:01 | CP.PCM.PN ---
Subjective - Date & Time of Evaluation Date of Evaluation: 12/22/17 Time of Evaluation: 18:01 - Subjective Subjective: afebrile,' c/o some pain at site of previous CT. WOUND VAC IN PLACE. NO SOB. OCCASIONAL COUGH. ON IV ABX Objective - Vital Signs/Intake and Output Vital Signs (last 24 hours): Temp Pulse Resp BP Pulse Ox 98.3 F 70 20 138/63 97 12/22/17 15:00 12/22/17 15:00 12/22/17 15:00 12/22/17 15:00 12/22/17 15:00 Intake and Output: 12/22/17 12/22/17 06:59 18:59 Output Total 710 1200 Balance -710 -1200 - Medications Medications: Current Medications Clonidine HCl (Catapres) 0.1 mg PO BID [facility] Last Admin: 12/22/17 17:18 Dose: 0.1 mg Enoxaparin Sodium (Lovenox) 40 mg SC DAILY [facility] Last Admin: 12/22/17 10:16 Dose: 40 mg Fluconazole (Diflucan) 200 mg PO BID [facility] PRN Reason: Protocol Last Admin: 12/22/17 17:18 Dose: 200 mg Furosemide (Lasix) 40 mg PO DAILY [facility] Last Admin: 12/22/17 10:08 Dose: 40 mg Guaifenesin/Dextromethorphan (Robitussin Dm) 15 ml PO Q6H [facility] Last Admin: 12/22/17 12:42 Dose: 15 ml Linezolid (Zyvox 600mg/300ml D5w) 600 mg in 300 mls @ 200 mls/hr IVPB Q12H [facility] PRN Reason: Protocol Last Admin: 12/22/17 14:19 Dose: 200 mls/hr Piperacillin Sod/Tazobactam Sod (Zosyn 3.375 Gm Iv Premix) 3.375 gm in 50 mls @ 100 mls/hr IVPB Q8H [facility] PRN Reason: Protocol Last Admin: 12/22/17 12:41 Dose: 100 mls/hr Morphine Sulfate (Morphine) 2 mg IVP Q4 PRN PRN Reason: Pain, moderate (4-7) Last Admin: 12/22/17 14:39 Dose: 2 mg Nystatin (Nystop Topical Powder) 1 applic TOP BID [facility] Last Admin: 12/22/17 17:19 Dose: 1 applic - Labs Labs: 12/20/17 07:55 12/20/17 07:55 PT 14.2 SECONDS (9.7-12.2) H 11/29/17 14:41 INR 1.3 11/29/17 14:41 APTT 19 SECONDS (21-34) L 11/29/17 14:41 - Constitutional Appears: No Acute Distress - Head Exam Head Exam: NORMAL INSPECTION - Eye Exam Eye Exam: EOMI, PERRL - ENT Exam ENT Exam: Normal Oropharynx - Neck Exam Neck Exam: Normal Inspection - Respiratory Exam Respiratory Exam: Decreased Breath Sounds (LT SIDE) - Cardiovascular Exam Cardiovascular Exam: REGULAR RHYTHM, +S1, +S2 - GI/Abdominal Exam GI & Abdominal Exam: Soft. absent: Tenderness (OBESE , LARGE FOLDS OF SKIN. NO CELLULITUS) - Extremities Exam Extremities Exam: Normal Capillary Refill. absent: Calf Tenderness, Pedal Edema - Neurological Exam Neurological Exam: Awake, CN II-XII Intact, Normal Gait, Oriented x3, Reflexes Normal - Psychiatric Exam Psychiatric exam: Normal Mood - Skin Skin Exam: Normal Color, Warm Assessment and Plan (1) Pneumonia Status: Acute (2) Left upper quadrant abdominal swelling Status: Acute (3) Bronchitis Status: Acute (4) Morbid obesity Status: Acute - Assessment and Plan (Free Text) Plan: CONTINUE IV ZOSYN 3.375 EVERY 8 HOURLY 11/15/17-FOR TOTAL OF 6WKS ON ZYVOX 600 MG EVERY 12 HOURLY 12/18/17 FOR VRE X4WKS- CAN CHANGE TO PO IF IV NOT AVAILABLE ON DIFLUCAN 200 MG BY MOUTH BID DAILY. 12/18/17 FOR MIRNA ALBICANS IN TISSUE/ CULTURE X 4WKS. MONITOR CBC,LFTS AND RENAL FUNCTION WEEKLY. WOUND VAC CARE PER SURGERY. WILL F/U PT WHILE IN HOSPITAL. AWAITING PLACEMENT DORYS.
[2017-12-23] MEDS: guaiFENesin DM 100 mg-10 mg/5 ml UD PO SCH ×4 (00:19→17:10)
[2017-12-23] MEDS: Linezolid 600 mg in D5W 300 ml 600 MG/300 ML BAG IVPB SCH ×2 (01:57→13:58)
[2017-12-23] MEDS: Morphine 4 MG/ML VIAL IVP PRN ×5 (02:46→20:24)
[2017-12-23] MEDS: Piperacill/Tazo 3.375gm in Dex 3.375 GM/50 ML BAG IVPB SCH ×3 (04:47→20:25)
[2017-12-23] MEDS ORDERED: Oxycodone/Acetaminophen 5/325 mg Tab PO PRN (06:28)
[2017-12-23] MEDS: Enoxaparin 40 mg Syringe SC SCH (09:50)
--- NOTE | 2017-12-23 18:08 | CP.PCM.PN ---
Subjective - Date & Time of Evaluation Date of Evaluation: 12/23/17 Time of Evaluation: 10:00 - Subjective Subjective: clinically same Objective - Vital Signs/Intake and Output Vital Signs (last 24 hours): Temp Pulse Resp BP Pulse Ox 98.2 F 73 20 132/84 98 12/23/17 16:00 12/23/17 16:00 12/23/17 16:00 12/23/17 16:00 12/23/17 16:00 Intake and Output: 12/23/17 12/23/17 06:59 18:59 Intake Total 1050 750 Output Total 2201 Balance 1050 -1451 - Medications Medications: Current Medications Clonidine HCl (Catapres) 0.1 mg PO BID [facility] Last Admin: 12/23/17 17:10 Dose: 0.1 mg Enoxaparin Sodium (Lovenox) 40 mg SC DAILY [facility] Last Admin: 12/23/17 09:50 Dose: 40 mg Fluconazole (Diflucan) 200 mg PO BID [facility] PRN Reason: Protocol Last Admin: 12/23/17 17:10 Dose: 200 mg Furosemide (Lasix) 40 mg PO DAILY [facility] Last Admin: 12/23/17 09:50 Dose: 40 mg Guaifenesin/Dextromethorphan (Robitussin Dm) 15 ml PO Q6H [facility] Last Admin: 12/23/17 17:10 Dose: 15 ml Linezolid (Zyvox 600mg/300ml D5w) 600 mg in 300 mls @ 200 mls/hr IVPB Q12H [facility] PRN Reason: Protocol Last Admin: 12/23/17 13:58 Dose: 200 mls/hr Piperacillin Sod/Tazobactam Sod (Zosyn 3.375 Gm Iv Premix) 3.375 gm in 50 mls @ 100 mls/hr IVPB Q8H [facility] PRN Reason: Protocol Last Admin: 12/23/17 13:58 Dose: 100 mls/hr Morphine Sulfate (Morphine) 2 mg IVP Q4 PRN PRN Reason: Pain, severe (8-10) Last Admin: 12/23/17 16:21 Dose: 2 mg Nystatin (Nystop Topical Powder) 1 applic TOP BID [facility] Last Admin: 12/23/17 17:11 Dose: 1 applic Oxycodone/Acetaminophen (Percocet 5/325 Mg Tab) 1 tab PO Q4H [facility] PRN Reason: Pain, moderate (4-7) Stop: 12/26/17 06:29 - Labs Labs: 12/20/17 07:55 12/20/17 07:55 PT 14.2 SECONDS (9.7-12.2) H 11/29/17 14:41 INR 1.3 11/29/17 14:41 APTT 19 SECONDS (21-34) L 11/29/17 14:41 - Constitutional Appears: Well - Head Exam Head Exam: ATRAUMATIC, NORMAL INSPECTION, NORMOCEPHALIC - Eye Exam Eye Exam: EOMI, Normal appearance, PERRL Pupil Exam: NORMAL ACCOMODATION, PERRL - ENT Exam ENT Exam: Mucous Membranes Moist, Normal Exam - Neck Exam Neck Exam: Full ROM, Normal Inspection. absent: Lymphadenopathy - Respiratory Exam Respiratory Exam: Decreased Breath Sounds - Cardiovascular Exam Cardiovascular Exam: REGULAR RHYTHM, +S1, +S2 - GI/Abdominal Exam GI & Abdominal Exam: Soft, Diminished Bowel Sounds - Rectal Exam Rectal Exam: Deferred Assessment and Plan (1) Abdominal pain Status: Acute (2) Abscess Status: Acute (3) Left upper quadrant abdominal swelling Status: Acute (4) Pleural effusion Status: Acute (5) Pneumonia Status: Acute (6) Pulmonary hypertension Status: Acute (7) Bronchitis Status: Acute (8) Bronchospasm Status: Acute (9) Chronic venous stasis dermatitis Status: Acute (10) Cough Status: Acute (11) Influenza-like illness Status: Acute (12) Leg edema Status: Acute (13) Leg swelling Status: Acute (14) Medical assessment Status: Acute (15) Morbid obesity Status: Acute (16) Pedal edema Status: Acute (17) Reactive airway disease Status: Acute (18) Rhabdomyolysis Status: Acute (19) Tinea pedis Status: Acute (20) Upper respiratory infection Status: Acute (21) Uvulitis Status: Acute
--- NOTE | 2017-12-23 23:53 | CP.PCM.PN ---
Subjective - Date & Time of Evaluation Date of Evaluation: 12/23/17 Time of Evaluation: 23:52 - Subjective Subjective: AFEBRILE. COMFORTABLE. PICC LINE IN PLACE. WOUND VAC IN PLACE ON ABX. Objective - Vital Signs/Intake and Output Vital Signs (last 24 hours): Temp Pulse Resp BP Pulse Ox 98.2 F 73 20 132/84 98 12/23/17 16:00 12/23/17 16:00 12/23/17 16:00 12/23/17 16:00 12/23/17 16:00 Intake and Output: 12/23/17 12/24/17 18:59 06:59 Intake Total 750 1050 Output Total 2201 Balance -1451 1050 - Medications Medications: Current Medications Clonidine HCl (Catapres) 0.1 mg PO BID [facility] Last Admin: 12/23/17 17:10 Dose: 0.1 mg Enoxaparin Sodium (Lovenox) 40 mg SC DAILY [facility] Last Admin: 12/23/17 09:50 Dose: 40 mg Fluconazole (Diflucan) 200 mg PO BID [facility] PRN Reason: Protocol Last Admin: 12/23/17 17:10 Dose: 200 mg Furosemide (Lasix) 40 mg PO DAILY [facility] Last Admin: 12/23/17 09:50 Dose: 40 mg Guaifenesin/Dextromethorphan (Robitussin Dm) 15 ml PO Q6H [facility] Last Admin: 12/23/17 17:10 Dose: 15 ml Linezolid (Zyvox 600mg/300ml D5w) 600 mg in 300 mls @ 200 mls/hr IVPB Q12H [facility] PRN Reason: Protocol Last Admin: 12/23/17 13:58 Dose: 200 mls/hr Piperacillin Sod/Tazobactam Sod (Zosyn 3.375 Gm Iv Premix) 3.375 gm in 50 mls @ 100 mls/hr IVPB Q8H [facility] PRN Reason: Protocol Last Admin: 12/23/17 20:25 Dose: 100 mls/hr Morphine Sulfate (Morphine) 2 mg IVP Q4 PRN PRN Reason: Pain, severe (8-10) Last Admin: 12/23/17 20:24 Dose: 2 mg Nystatin (Nystop Topical Powder) 1 applic TOP BID [facility] Last Admin: 12/23/17 17:11 Dose: 1 applic Oxycodone/Acetaminophen (Percocet 5/325 Mg Tab) 1 tab PO Q4H PRN PRN Reason: Pain, moderate (4-7) Stop: 12/26/17 06:29 - Labs Labs: 12/20/17 07:55 12/20/17 07:55 PT 14.2 SECONDS (9.7-12.2) H 11/29/17 14:41 INR 1.3 11/29/17 14:41 APTT 19 SECONDS (21-34) L 11/29/17 14:41 - Constitutional Appears: No Acute Distress - Head Exam Head Exam: NORMAL INSPECTION - Eye Exam Eye Exam: EOMI, PERRL - ENT Exam ENT Exam: Normal Oropharynx - Neck Exam Neck Exam: Normal Inspection - Respiratory Exam Respiratory Exam: Decreased Breath Sounds (LT SIDE), NORMAL BREATHING PATTERN - Cardiovascular Exam Cardiovascular Exam: REGULAR RHYTHM, +S1, +S2 - Extremities Exam Extremities Exam: absent: Calf Tenderness, Pedal Edema - Neurological Exam Neurological Exam: Alert, Awake, CN II-XII Intact, Normal Gait, Oriented x3 - Psychiatric Exam Psychiatric exam: Normal Mood - Skin Skin Exam: Normal Color, Warm Assessment and Plan (1) Pneumonia Status: Acute (2) Left upper quadrant abdominal swelling Status: Acute (3) Bronchitis Status: Acute (4) Morbid obesity Status: Acute - Assessment and Plan (Free Text) Plan: CONTINUE IV ZOSYN 3.375 EVERY 8 HOURLY 11/15/17-FOR TOTAL OF 6WKS ON ZYVOX 600 MG EVERY 12 HOURLY 12/18/17 FOR VRE X4WKS- CAN CHANGE TO PO IF IV NOT AVAILABLE ON DIFLUCAN 200 MG BY MOUTH BID DAILY. 12/18/17 FOR MIRNA ALBICANS IN TISSUE/ CULTURE X 4WKS. MONITOR CBC,LFTS AND RENAL FUNCTION WEEKLY. WOUND VAC CARE PER SURGERY. WILL F/U PT WHILE IN HOSPITAL. AWAITING PLACEMENT DORYS.
[2017-12-24] MEDS: guaiFENesin DM 100 mg-10 mg/5 ml UD PO SCH ×4 (00:26→17:24)
[2017-12-24] MEDS: Morphine 4 MG/ML VIAL IVP PRN ×6 (00:26→22:31)
[2017-12-24] MEDS: Linezolid 600 mg in D5W 300 ml 600 MG/300 ML BAG IVPB SCH ×2 (01:52→14:14)
[2017-12-24] MEDS: Piperacill/Tazo 3.375gm in Dex 3.375 GM/50 ML BAG IVPB SCH ×3 (04:26→20:04)
[2017-12-24 07:51] LABS: BASO # 0.1 K/uL (0.0-0.2); EOS # 0.6 K/uL (0.0-0.7); EOS % 10.3 % (0.0-4.0); HEMOGLOBIN 11.5 g/dL (12.0-18.0); LYMPH # 1.4 K/uL (1.0-4.3); LYMPH % 23.6 % (20.0-40.0); MEAN CELL VOLUME 80.5 fL (80.0-94.0); MEAN CORPUSCULAR HEMOGLOBIN 27.2 pg (27.0-31.0); MEAN CORPUSCULAR HGB CONC 33.8 g/dL (33.0-37.0); MEAN PLATELET VOLUME 7.2 fL (7.2-11.7); MONO # 0.5 K/uL (0.0-0.8); MONO % 8.8 % (0.0-10.0); NEUT # 3.4 K/uL (1.8-7.0); NEUT % 56.3 % (50.0-75.0); NRBC % 0.1 % (0.0-2.0); RBC 4.22 Mil/uL (4.40-5.90); RED CELL DISTRIBUTION WIDTH 15.7 % (11.5-14.5)
[2017-12-24 08:20] LABS: ALBUMIN 3.4 g/dL (3.5-5.0); ALT/SGPT 10 U/L (21-72); AST/SGOT 21 U/L (17-59); BLOOD UREA NITROGEN 12 mg/dL (9-20); CALCIUM 8.6 mg/dl (8.6-10.4); GFR AFRICAN-AMERICAN > 60; GFR NON-AFRICAN AMERICAN > 60
[2017-12-24] MEDS: Enoxaparin 40 mg Syringe SC SCH (09:35)
--- NOTE | 2017-12-24 15:15 | CP.PCM.PN ---
Subjective - Date & Time of Evaluation Date of Evaluation: 12/24/17 Time of Evaluation: 10:00 - Subjective Subjective: clinically same Objective - Vital Signs/Intake and Output Vital Signs (last 24 hours): Temp Pulse Resp BP Pulse Ox 97.9 F 77 20 146/82 96 12/24/17 07:00 12/24/17 07:00 12/24/17 07:00 12/24/17 09:32 12/24/17 07:00 Intake and Output: 12/24/17 12/24/17 06:59 18:59 Intake Total 1050 750 Output Total 700 Balance 1050 50 - Medications Medications: Current Medications Clonidine HCl (Catapres) 0.1 mg PO BID [facility] Last Admin: 12/24/17 09:32 Dose: 0.1 mg Enoxaparin Sodium (Lovenox) 40 mg SC DAILY [facility] Last Admin: 12/24/17 09:35 Dose: 40 mg Fluconazole (Diflucan) 200 mg PO BID [facility] PRN Reason: Protocol Last Admin: 12/24/17 09:32 Dose: 200 mg Furosemide (Lasix) 40 mg PO DAILY [facility] Last Admin: 12/24/17 09:32 Dose: 40 mg Guaifenesin/Dextromethorphan (Robitussin Dm) 15 ml PO Q6H [facility] Last Admin: 12/24/17 12:13 Dose: 15 ml Linezolid (Zyvox 600mg/300ml D5w) 600 mg in 300 mls @ 200 mls/hr IVPB Q12H [facility] PRN Reason: Protocol Last Admin: 12/24/17 14:14 Dose: 200 mls/hr Piperacillin Sod/Tazobactam Sod (Zosyn 3.375 Gm Iv Premix) 3.375 gm in 50 mls @ 100 mls/hr IVPB Q8H [facility] PRN Reason: Protocol Last Admin: 12/24/17 14:00 Dose: 100 mls/hr Morphine Sulfate (Morphine) 2 mg IVP Q4 PRN PRN Reason: Pain, severe (8-10) Last Admin: 12/24/17 14:14 Dose: 2 mg Nystatin (Nystop Topical Powder) 1 applic TOP BID [facility] Last Admin: 12/24/17 09:35 Dose: 1 applic Oxycodone/Acetaminophen (Percocet 5/325 Mg Tab) 1 tab PO Q4H [facility]N PRN Reason: Pain, moderate (4-7) Stop: 12/26/17 06:29 - Labs Labs: 12/24/17 07:38 12/24/17 07:38 PT 14.2 SECONDS (9.7-12.2) H 11/29/17 14:41 INR 1.3 11/29/17 14:41 APTT 19 SECONDS (21-34) L 11/29/17 14:41 - Constitutional Appears: Well - Head Exam Head Exam: ATRAUMATIC, NORMAL INSPECTION, NORMOCEPHALIC - Eye Exam Eye Exam: EOMI, Normal appearance, PERRL Pupil Exam: NORMAL ACCOMODATION, PERRL - ENT Exam ENT Exam: Mucous Membranes Moist, Normal Exam - Neck Exam Neck Exam: Full ROM, Normal Inspection. absent: Lymphadenopathy - Respiratory Exam Respiratory Exam: Decreased Breath Sounds - Cardiovascular Exam Cardiovascular Exam: REGULAR RHYTHM, +S1, +S2 - GI/Abdominal Exam GI & Abdominal Exam: Soft, Diminished Bowel Sounds - Rectal Exam Rectal Exam: Deferred Assessment and Plan (1) Abdominal pain Status: Acute (2) Abscess Status: Acute (3) Left upper quadrant abdominal swelling Status: Acute (4) Pleural effusion Status: Acute (5) Pneumonia Status: Acute (6) Pulmonary hypertension Status: Acute (7) Bronchitis Status: Acute (8) Bronchospasm Status: Acute (9) Chronic venous stasis dermatitis Status: Acute (10) Cough Status: Acute (11) Influenza-like illness Status: Acute (12) Leg edema Status: Acute (13) Leg swelling Status: Acute (14) Medical assessment Status: Acute (15) Morbid obesity Status: Acute (16) Pedal edema Status: Acute (17) Reactive airway disease Status: Acute (18) Rhabdomyolysis Status: Acute (19) Tinea pedis Status: Acute (20) Upper respiratory infection Status: Acute (21) Uvulitis Status: Acute
[2017-12-25] MEDS: guaiFENesin DM 100 mg-10 mg/5 ml UD PO SCH ×4 (00:16→17:37)
[2017-12-25] MEDS: Morphine 4 MG/ML VIAL IVP PRN ×5 (02:28→18:51)
[2017-12-25] MEDS: Linezolid 600 mg in D5W 300 ml 600 MG/300 ML BAG IVPB SCH ×2 (02:28→13:20)
[2017-12-25] MEDS: Piperacill/Tazo 3.375gm in Dex 3.375 GM/50 ML BAG IVPB SCH ×2 (04:55→12:05)
[2017-12-25] MEDS ORDERED: Lidocaine 2% Inj (20ml) IV ONE (08:15)
[2017-12-25] MEDS: Enoxaparin 40 mg Syringe SC SCH (10:41)
--- NOTE | 2017-12-25 13:59 | CP.PCM.PN ---
Subjective - Date & Time of Evaluation Date of Evaluation: 12/25/17 Time of Evaluation: 11:00 - Subjective Subjective: clinically same Objective - Vital Signs/Intake and Output Vital Signs (last 24 hours): Temp Pulse Resp BP Pulse Ox 97.8 F 72 20 134/84 97 12/25/17 08:11 12/25/17 08:11 12/25/17 08:11 12/25/17 10:41 12/25/17 08:11 Intake and Output: 12/25/17 12/25/17 06:59 18:59 Intake Total 1050 Output Total 900 Balance 150 - Medications Medications: Current Medications Clonidine HCl (Catapres) 0.1 mg PO BID [facility] Last Admin: 12/25/17 10:42 Dose: 0.1 mg Enoxaparin Sodium (Lovenox) 40 mg SC DAILY [facility] Last Admin: 12/25/17 10:41 Dose: 40 mg Fluconazole (Diflucan) 200 mg PO BID [facility] PRN Reason: Protocol Last Admin: 12/25/17 10:41 Dose: 200 mg Guaifenesin/Dextromethorphan (Robitussin Dm) 15 ml PO Q6H [facility] Last Admin: 12/25/17 12:05 Dose: 15 ml Linezolid (Zyvox 600mg/300ml D5w) 600 mg in 300 mls @ 200 mls/hr IVPB Q12H [facility] PRN Reason: Protocol Last Admin: 12/25/17 13:20 Dose: 200 mls/hr Piperacillin Sod/Tazobactam Sod (Zosyn 3.375 Gm Iv Premix) 3.375 gm in 50 mls @ 100 mls/hr IVPB Q8H [facility] PRN Reason: Protocol Last Admin: 12/25/17 12:05 Dose: 100 mls/hr Morphine Sulfate (Morphine) 2 mg IVP Q4 PRN PRN Reason: Pain, severe (8-10) Last Admin: 12/25/17 10:38 Dose: 2 mg Nystatin (Nystop Topical Powder) 1 applic TOP BID [facility] Last Admin: 12/25/17 10:44 Dose: 1 applic Oxycodone/Acetaminophen (Percocet 5/325 Mg Tab) 1 tab PO Q4H PRN PRN Reason: Pain, moderate (4-7) Stop: 12/26/17 06:29 - Labs Labs: 12/24/17 07:38 12/24/17 07:38 PT 14.2 SECONDS (9.7-12.2) H 11/29/17 14:41 INR 1.3 11/29/17 14:41 APTT 19 SECONDS (21-34) L 11/29/17 14:41 - Constitutional Appears: Well - Head Exam Head Exam: ATRAUMATIC, NORMAL INSPECTION, NORMOCEPHALIC - Eye Exam Eye Exam: EOMI, Normal appearance, PERRL Pupil Exam: NORMAL ACCOMODATION, PERRL - ENT Exam ENT Exam: Mucous Membranes Moist, Normal Exam - Neck Exam Neck Exam: Full ROM, Normal Inspection. absent: Lymphadenopathy - Respiratory Exam Respiratory Exam: Decreased Breath Sounds - Cardiovascular Exam Cardiovascular Exam: REGULAR RHYTHM, +S1, +S2 - GI/Abdominal Exam GI & Abdominal Exam: Soft, Diminished Bowel Sounds - Rectal Exam Rectal Exam: Deferred Assessment and Plan (1) Abdominal pain Status: Acute (2) Abscess Status: Acute (3) Left upper quadrant abdominal swelling Status: Acute (4) Pleural effusion Status: Acute (5) Pneumonia Status: Acute (6) Pulmonary hypertension Status: Acute (7) Bronchitis Status: Acute (8) Bronchospasm Status: Acute (9) Chronic venous stasis dermatitis Status: Acute (10) Cough Status: Acute (11) Influenza-like illness Status: Acute (12) Leg edema Status: Acute (13) Leg swelling Status: Acute (14) Medical assessment Status: Acute (15) Morbid obesity Status: Acute (16) Pedal edema Status: Acute (17) Reactive airway disease Status: Acute (18) Rhabdomyolysis Status: Acute (19) Tinea pedis Status: Acute (20) Upper respiratory infection Status: Acute (21) Uvulitis Status: Acute
--- NOTE | 2017-12-25 15:37 | CP.PCM.PN ---
Subjective - Date & Time of Evaluation Date of Evaluation: 12/25/17 Time of Evaluation: 15:34 - Subjective Subjective: PT CLEARED FOR D/C TODAY PER DR. Leonides JAMES. PT TO GO TO [facility] PER . PER GUERO ROBERT THERE IS A WOUND VAC ALREADY ARRANGED AND AT THE FACILITY FOR THE PT. DR. JAMES TO ARRANGE WOUND VAC SETTINGS WITH THE FACILITY UPON ARRIVAL. I REVIEWED DR. CHAVES'S NOTES AND IV ABX DURATION RECOMMENDATIONS. ZOSYN WILL CONTINUE AND WILL BE COMPLETED ON 12/27 (FOR A TOTAL OF 6 WEEKS); ZYVOX PO AND DIFLUCAN PO WILL BE CONTINUED FOR ANOTHER 21 DAYS (FOR A TOTAL OF 4 WEEKS). SW TO ARRANGE FOR TRANSPORTATION TO THE FACILITY FOR TODAY. NO FURTHER ORDERS. SEE BELOW FOR D/C PLAN SENT WIT PT: -PLACE UNDER THE SERVICE OF DR. Leonides JAMES...CALL UPON ARRIVAL FOR ADMITTING ORDERS. -CONTINUE WOUND VAC AT SETTINGS ORDERED BY DR. Leonides JAMES UPON ADMISSION. -CONTINUE MEDICATIONS PER MED REC. -CONTINUE ANTIBIOTICS FOLLOWS: ZOSYN 3.375 GM IV Q8 HOURS X3 MORE DAYS ( LAST DOSE DUE ON 12/27/17); ZYVOX 600 MG PO BID X21 MORE DAYS (LAST DOSE DUE ON ); DIFLUCAN 200 MG PO BID X21 MORE DAYS (LAST DOSE DUE ON 01/15/18). Objective - Vital Signs/Intake and Output Vital Signs (last 24 hours): Temp Pulse Resp BP Pulse Ox 97.8 F 72 20 134/84 97 12/25/17 08:11 12/25/17 08:11 12/25/17 08:11 12/25/17 10:41 12/25/17 08:11 Intake and Output: 12/25/17 12/25/17 06:59 18:59 Intake Total 1050 Output Total 900 Balance 150 - Medications Medications: Current Medications Clonidine HCl (Catapres) 0.1 mg PO BID [facility] Last Admin: 12/25/17 10:42 Dose: 0.1 mg Enoxaparin Sodium (Lovenox) 40 mg SC DAILY [facility] Last Admin: 12/25/17 10:41 Dose: 40 mg Fluconazole (Diflucan) 200 mg PO BID [facility] PRN Reason: Protocol Last Admin: 12/25/17 10:41 Dose: 200 mg Guaifenesin/Dextromethorphan (Robitussin Dm) 15 ml PO Q6H [facility] Last Admin: 12/25/17 12:05 Dose: 15 ml Linezolid (Zyvox 600mg/300ml D5w) 600 mg in 300 mls @ 200 mls/hr IVPB Q12H [facility] PRN Reason: Protocol Last Admin: 12/25/17 13:20 Dose: 200 mls/hr Piperacillin Sod/Tazobactam Sod (Zosyn 3.375 Gm Iv Premix) 3.375 gm in 50 mls @ 100 mls/hr IVPB Q8H [facility] PRN Reason: Protocol Last Admin: 12/25/17 12:05 Dose: 100 mls/hr Morphine Sulfate (Morphine) 2 mg IVP Q4 PRN PRN Reason: Pain, severe (8-10) Last Admin: 12/25/17 14:38 Dose: 2 mg Nystatin (Nystop Topical Powder) 1 applic TOP BID [facility] Last Admin: 12/25/17 10:44 Dose: 1 applic Oxycodone/Acetaminophen (Percocet 5/325 Mg Tab) 1 tab PO Q4H PRN PRN Reason: Pain, moderate (4-7) Stop: 12/26/17 06:29 - Labs Labs: 12/24/17 07:38 12/24/17 07:38 PT 14.2 SECONDS (9.7-12.2) H 11/29/17 14:41 INR 1.3 11/29/17 14:41 APTT 19 SECONDS (21-34) L 11/29/17 14:41
[2017-12-25 16:12] VITALS: BP 121/70; PULSE 71; RESP 18; TEMP 97.6; O2SAT 98
== END 2017-12-25 21:18 | DRG 539 ==
LOC: C.ER 19:04 → C.9E 22:58 → C.3T 11-15 20:11 → OBSVTOIN 11-16 14:00 → C.3T 11-25 19:02 → C.6T 11-28 22:42 → C.9S 11-29 14:20 → C.9I 11-29 15:51 → C.3T 12-06 15:10 → C.5S 12-18 18:33
PROVIDERS: ADMIT Internal Medicine Nephrology; ATTEND Internal Medicine Nephrology
PROC: 0W9B3ZZ Drainage of Left Pleural Cavity, Percutaneous Approach (ICD-10-PCS; 2017-11-24)
PROC: 0W9B30Z Drainage of Left Pleural Cavity with Drainage Device, Percutaneous Approach (ICD-10-PCS; 2017-11-29)
PROC: 02HV33Z Insertion of Infusion Device into Superior Vena Cava, Percutaneous Approach (ICD-10-PCS; 2017-11-29)
PROC: 0WBF0ZZ Excision of Abdominal Wall, Open Approach (ICD-10-PCS; 2017-12-01)
PROC: 0W9F0ZZ Drainage of Abdominal Wall, Open Approach (ICD-10-PCS; principal; 2017-12-01 18:30)
PROC: 0JB60ZZ Excision of Chest Subcutaneous Tissue and Fascia, Open Approach (ICD-10-PCS; 2017-12-04)
PROC: 0JB80ZZ Excision of Abdomen Subcutaneous Tissue and Fascia, Open Approach (ICD-10-PCS; 2017-12-06)
PROC: 0JB60ZZ Excision of Chest Subcutaneous Tissue and Fascia, Open Approach (ICD-10-PCS; 2017-12-06)
PROC: 2W03X6Z Change Pressure Dressing on Abdominal Wall (ICD-10-PCS; 2017-12-08)
DX: J18.9 Pneumonia, unspecified organism (principal); J93.82 Other air leak; M62.82 Rhabdomyolysis; J91.8 Pleural effusion in other conditions classified elsewhere; K12.2 Cellulitis and abscess of mouth; L03.311 Cellulitis of abdominal wall; J98.11 Atelectasis; L02.211 Cutaneous abscess of abdominal wall; L03.313 Cellulitis of chest wall; J94.2 Hemothorax; J45.909 Unspecified asthma, uncomplicated; J40 Bronchitis, not specified as acute or chronic; G47.30 Sleep apnea, unspecified; I27.20 Pulmonary hypertension, unspecified; I11.9 Hypertensive heart disease without heart failure; F17.200 Nicotine dependence, unspecified, uncomplicated; B35.3 Tinea pedis; B37.9 Candidiasis, unspecified; D50.9 Iron deficiency anemia, unspecified; E66.01 Morbid (severe) obesity due to excess calories; F12.90 Cannabis use, unspecified, uncomplicated; R73.03 Prediabetes; Z59.0 Homelessness; Z79.84 Long term (current) use of oral hypoglycemic drugs; I48.91 Unspecified atrial fibrillation; Z68.45 Body mass index [BMI] 70 or greater, adult; F17.219 Nicotine dependence, cigarettes, with unspecified nicotine-induced disorders

== ENCOUNTER 2017-12-29 14:05 | Emergency (ER) | payer MEDICAID ==
[2017-12-29 14:06] VITALS: BMI 103.4
--- NOTE | 2017-12-29 14:40 | C.PDOC ---
History Of Present Illness 42 Y/O MALE PRESENTS TO ED FOR WOUND VAC CHANGE. PATIENT STATES HE WAS RECENTLY DISCHARGED TO REHAB, LAST WOUND VAC CHANGE THIS WEEK BUT UNABLE TO TOLERATE AGAIN DUE TO SEVERE PAIN. "THE PERCOCET PILLS THEY GAVE ME DOESN'T WORK ". NO FEVER, OTHER ASSOC SX EXAM NAD NONTOXIC SKIN WOUND DRESSING IN PLACE. 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 NEG Time Seen by Provider: 12/29/17 14:27 Chief Complaint (Nursing): Wound Check History Per: Patient History/Exam Limitations: no limitations Onset/Duration Of Symptoms: Days Ago Current Symptoms Are (Timing): Still Present Past Medical History Reviewed: Historical Data, Nursing Documentation, Vital Signs Vital Signs: Last Vital Signs Temp 98.7 F 12/29/17 14:13 Pulse 77 12/29/17 14:13 Resp 18 12/29/17 14:13 BP 134/84 12/29/17 14:13 Pulse Ox 97 12/29/17 15:23 - Medical History PMH: Depression, HTN Surgical History: No Surg Hx - [facility] Procedures CHANGE PRESSURE DRESSING ON ABDOMINAL WALL (11/16/17) DRAINAGE OF ABDOMINAL WALL, OPEN APPROACH (11/16/17) DRAINAGE OF L PLEURAL CAV WITH DRAIN DEV, PERC APPROACH (11/16/17) DRAINAGE OF LEFT PLEURAL CAVITY, PERCUTANEOUS APPROACH (11/16/17) EXCISION OF ABD SUBCU/FASCIA, OPEN APPROACH (11/16/17) EXCISION OF ABDOMINAL WALL, OPEN APPROACH (11/16/17) EXCISION OF CHEST SUBCU/FASCIA, OPEN APPROACH (11/16/17) INSERTION OF INFUSION DEV INTO SUP VENA CAVA, PERC APPROACH (11/16/17) Family History: States: No Known Family Hx - Social History Hx Tobacco Use: Yes (light smoker) Hx Alcohol Use: No Hx Substance Use: Yes - Immunization History Hx Tetanus Toxoid Vaccination: No Hx Influenza Vaccination: No Hx Pneumococcal Vaccination: No Review Of Systems Constitutional: Negative for: Fever, Chills Gastrointestinal: Negative for: Nausea, Vomiting Skin: Negative for: Rash Physical Exam - Physical Exam Appears: Non-toxic, No Acute Distress Skin: Warm, Dry, No Rash, Other (Skin wound dressing in place) Head: Atraumatic, Normacephalic Oral Mucosa: Moist Neck: Normal ROM, Supple Cardiovascular: Rhythm Regular Respiratory: Normal Breath Sounds, No Rales, No Rhonchi, No Wheezing Gastrointestinal/Abdominal: Soft, No Tenderness, No Guarding, No Rebound Back: No CVA Tenderness Extremity: Normal ROM, Capillary Refill (<2 seconds) Neurological/Psych: Oriented x3, Normal Speech, Normal Cognition ED Course And Treatment ECG: Interpreted By Me ECG Rhythm: Sinus Rhythm Rate From EC O2 Sat by Pulse Oximetry: 97 (RA) Pulse Ox Interpretation: Normal Progress - Re-Evaluation Re-evaluation Note: 12/29/17 14:38 D/W SURG RESIDENT WILL EVAL IN ER 12/29/17 17:10 SP WOUND VAC CHANGED BY SURGERY, CLEARED FOR DC - Data Reviewed Data Reviewed: Old records Disposition Counseled Patient/Family Regarding: Diagnosis, Need For Followup - Disposition Referrals: YOUR,PMD [Other] Disposition: HOME/ ROUTINE Disposition Time: 17:11 Condition: IMPROVED Forms: [facility] (Hungarian), General Discharge Instructions - Clinical Impression Clinical Impression: Dressing change or removal, surgical wound - Scribe Statement The provider has reviewed the documentation as recorded by the Alexandruibkahlil Padilla All medical record entries made by the Alexandruibkahlil were at my direction and personally dictated by me. I have reviewed the chart and agree that the record accurately reflects my personal performance of the history, physical exam, medical decision making, and the department course for this patient. I have also personally directed, reviewed, and agree with the discharge instructions and disposition.
[2017-12-29] MEDS ORDERED: HYDROmorphone 1 mg/ml ISec IM STA (14:57)
[2017-12-29] MEDS ORDERED: Morphine 4 MG/ML VIAL ONE (15:15)
[2017-12-29] MEDS ORDERED: Lidocaine 2% Inj (20ml) INFIL ONE (15:33)
[2017-12-29 19:56] VITALS: BP 119/79; PULSE 86; RESP 20; TEMP 98.4; O2SAT 96
--- NOTE | 2018-01-01 20:42 | CARD ---
APPROVED REPORT EKG Measurement Heart [id number] <Conclusion> Normal sinus rhythm Normal ECG
== END 2017-12-29 19:56 | disposition home or self-care (01) ==
LOC: C.ER 14:05
DX: Z48.01 Encounter for change or removal of surgical wound dressing (principal)
CPT/HCPCS: 93005; 96372; 99284; J2270

== ENCOUNTER 2018-03-04 00:17 | Emergency (ER) | payer MEDICAID ==
[2018-03-04 00:17] VITALS: BMI 103.4
[2018-03-04 00:27] VITALS: BP 149/100; PULSE 93; RESP 22; TEMP 98.1; O2SAT 96
--- NOTE | 2018-03-04 00:51 | C.PDOC ---
History Of Present Illness 42 year old male presents to the ED c/o dental pain. Patient reports pain is mostly located on his right side. Patient denies injury, fall, trauma, fever, chills, nausea, vomit, weakness, numbness. Time Seen by Provider: 03/04/18 00:28 Chief Complaint (Nursing): Dental Pain History Per: Patient History/Exam Limitations: no limitations Onset/Duration Of Symptoms: Days Current Symptoms Are (Timing): Still Present Quality: Positive for: "Pain" Recent travel outside of the [place]: No Additional History Per: Patient Past Medical History Reviewed: Historical Data, Nursing Documentation, Vital Signs Vital Signs: Last Vital Signs Temp 98.1 F 03/04/18 00:26 Pulse 93 H 03/04/18 00:26 Resp 22 03/04/18 00:26 BP 149/100 H 03/04/18 00:26 Pulse Ox 96 03/04/18 00:52 - Medical History PMH: Depression, HTN Surgical History: No Surg Hx - [facility] Procedures CHANGE PRESSURE DRESSING ON ABDOMINAL WALL (11/16/17) DRAINAGE OF ABDOMINAL WALL, OPEN APPROACH (11/16/17) DRAINAGE OF L PLEURAL CAV WITH DRAIN DEV, PERC APPROACH (11/16/17) DRAINAGE OF LEFT PLEURAL CAVITY, PERCUTANEOUS APPROACH (11/16/17) EXCISION OF ABD SUBCU/FASCIA, OPEN APPROACH (11/16/17) EXCISION OF ABDOMINAL WALL, OPEN APPROACH (11/16/17) EXCISION OF CHEST SUBCU/FASCIA, OPEN APPROACH (11/16/17) INSERTION OF INFUSION DEV INTO SUP VENA CAVA, PERC APPROACH (11/16/17) Family History: States: Unknown Family Hx - Social History Hx Tobacco Use: Yes (light smoker) Hx Alcohol Use: No Hx Substance Use: Yes - Immunization History Hx Tetanus Toxoid Vaccination: No Hx Influenza Vaccination: No Hx Pneumococcal Vaccination: No Review Of Systems Constitutional: Negative for: Fever, Chills ENT: Positive for: Mouth Pain. Negative for: Nose Discharge, Nose Congestion, Throat Pain Respiratory: Negative for: Cough, Shortness of Breath Gastrointestinal: Negative for: Nausea, Vomiting Skin: Negative for: Rash Neurological: Negative for: Headache Physical Exam - Physical Exam Appears: Non-toxic, No Acute Distress Skin: Normal Color, Warm, Dry Head: Atraumatic, Normacephalic Eye(s): bilateral: Normal Inspection Ear(s): Bilateral: Normal Nose: No Discharge Oral Mucosa: Moist Teeth: Caries (right lower teeth, pre molar), Other (partially broken tooth right lower) Gingiva: No Swelling, No Bleeding Throat: Normal, No Erythema, No Exudate Neck: Normal ROM, Supple Extremity: Normal ROM Neurological/Psych: Oriented x3, Normal Speech Gait: Steady ED Course And Treatment O2 Sat by Pulse Oximetry: 96 (ON RA) Pulse Ox Interpretation: Normal Progress Note: Plan: - Motrin 800 mg PO. - Penicillin 500 mg PO. On reassessment, patient is resting comfortably, and is in no acute distress. Patient was instructed to follow up with physician/clinic in 1-2 days for further evaluation. Disposition Counseled Patient/Family Regarding: Diagnosis, Need For Followup, Rx Given - Disposition Referrals: [facility] [Outside] Dental , [facility] [Other] Disposition: HOME/ ROUTINE Disposition Time: 00:48 Condition: STABLE Additional Instructions: Please follow up with dentist Return to ER if worse Prescriptions: Ibuprofen [Motrin Tab] 800 mg PO QID #20 tab Penicillin VK [Penicillin VK Tab] 2 tab PO BID #20 tab Instructions: Dental Pain (DC) Forms: [facility] (Malay) - Clinical Impression Clinical Impression: Toothache - PA / EXEC[employer]IVE [employer]INO HOST / Resident Statement MD/DO has reviewed & agrees with the documentation as recorded. - Scribe Statement The provider has reviewed the documentation as recorded by the Scribe Hugh Lucero All medical record entries made by the Scribe were at my direction and personally dictated by me. I have reviewed the chart and agree that the record accurately reflects my personal performance of the history, physical exam, medical decision making, and the department course for this patient. I have also personally directed, reviewed, and agree with the discharge instructions and disposition.
== END 2018-03-04 00:59 | disposition home or self-care (01) ==
LOC: C.ER 00:17
DX: K08.89 Other specified disorders of teeth and supporting structures (principal); I10 Essential (primary) hypertension; F17.200 Nicotine dependence, unspecified, uncomplicated

== ENCOUNTER 2018-03-07 18:34 | Inpatient (IN) | payer MEDICAID ==
[2018-03-07 18:34] VITALS: BMI 103.4
[2018-03-07 18:39] VITALS: RESP 20
--- NOTE | 2018-03-07 19:17 | C.PDOC ---
History Of Present Illness Patient presents to the ER with a complaint of worsening SOB. Patient is morbidly obese and notes he feels SOB even at rest. Patient is currently able to speaking in complete sentences. Denies chest pain or palpitations. Time Seen by Provider: 03/07/18 19:16 Chief Complaint (Nursing): Shortness Of Breath History Per: Patient History/Exam Limitations: no limitations Onset/Duration Of Symptoms: Days Current Symptoms Are (Timing): Still Present Initiating Event: Other (Not known) Current Respiratory Medications: See Home Med List Severity: Moderate Pain Scale Rating Of: 4 Associated Symptoms: Other ((+) SOB (-) Palpitations). denies: Chest Pain Reports Recently: Seen In ED, Treated By A Physician, Hospitalized Recent travel outside of the [place]: No Additional History Per: Patient Past Medical History Reviewed: Historical Data, Nursing Documentation, Vital Signs Vital Signs: Last Vital Signs Temp 99.3 F 03/07/18 18:37 Pulse 97 H 03/07/18 18:37 Resp 20 03/07/18 18:37 BP 186/106 H 03/07/18 18:37 Pulse Ox 100 03/07/18 21:17 - Medical History PMH: Depression, HTN - [facility] Procedures CHANGE PRESSURE DRESSING ON ABDOMINAL WALL (11/16/17) DRAINAGE OF ABDOMINAL WALL, OPEN APPROACH (11/16/17) DRAINAGE OF L PLEURAL CAV WITH DRAIN DEV, PERC APPROACH (11/16/17) DRAINAGE OF LEFT PLEURAL CAVITY, PERCUTANEOUS APPROACH (11/16/17) EXCISION OF ABD SUBCU/FASCIA, OPEN APPROACH (11/16/17) EXCISION OF ABDOMINAL WALL, OPEN APPROACH (11/16/17) EXCISION OF CHEST SUBCU/FASCIA, OPEN APPROACH (11/16/17) INSERTION OF INFUSION DEV INTO SUP VENA CAVA, PERC APPROACH (11/16/17) Family History: States: Unknown Family Hx - Social History Hx Tobacco Use: Yes (light smoker) Hx Alcohol Use: No Hx Substance Use: Yes - Immunization History Hx Tetanus Toxoid Vaccination: No Hx Influenza Vaccination: No Hx Pneumococcal Vaccination: No Review Of Systems Constitutional: Negative for: Fever, Chills Cardiovascular: Negative for: Chest Pain, Palpitations Respiratory: Positive for: Shortness of Breath Gastrointestinal: Negative for: Nausea, Vomiting Genitourinary: Negative for: Dysuria Musculoskeletal: Negative for: Back Pain Skin: Negative for: Rash Neurological: Negative for: Weakness, Numbness Psych: Negative for: Anxiety Physical Exam - Physical Exam Appears: Non-toxic Skin: Warm, Dry Head: Normacephalic Eye(s): bilateral: Normal Inspection Oral Mucosa: Moist Neck: Trachea Midline, Supple Chest: Symmetrical, No Tenderness Cardiovascular: Rhythm Regular Respiratory: Decreased Breath Sounds, No Rales, No Rhonchi, No Wheezing Gastrointestinal/Abdominal: Soft, No Tenderness, Other (Morbidly obese) Back: No CVA Tenderness Extremity: Pedal Edema (Bilateral) Extremity: Bilateral: Atraumatic Pulses: Left Dorsalis Pedis: Normal, Right Dorsalis Pedis: Normal Neurological/Psych: Oriented x3 Gait: Steady ED Course And Treatment - Laboratory Results Result Diagrams: 03/07/18 19:41 03/07/18 19:41 ECG: Interpreted By Me, Viewed By Me ECG Rhythm: Sinus Rhythm (93), Nonspecific Changes O2 Sat by Pulse Oximetry: 96 (Room air) Pulse Ox Interpretation: Normal Progress Note: CT chest, EKG, CXR, blood work, and urinalysis ordered. Disposition Discussed With DrYuan: Ky Todd Comment: accepted the pt on his service and took over the care at 10:24 PM Doctor Will See Patient In The: Hospital Counseled Patient/Family Regarding: Studies Performed, Diagnosis - Disposition Disposition: HOSPITALIZED Disposition Time: 19:17 Condition: FAIR Forms: [facility] (Tristanian) - POA Present On Arrival: Poor Glycemic Control - Clinical Impression Clinical Impression: Dyspnea, Morbid obesity, Pleural effusion, Hypokalemia - Scribe Statement The provider has reviewed the documentation as recorded by the Scribkahlil Galvan All medical record entries made by the Scribe were at my direction and personally dictated by me. I have reviewed the chart and agree that the record accurately reflects my personal performance of the history, physical exam, medical decision making, and the department course for this patient. I have also personally directed, reviewed, and agree with the discharge instructions and disposition. Decision To Admit - Pt Status Changed To: Hospital Disposition Of: Inpatient - Admit Certification Admit to Inpatient:: After my assessment, the patient will require hospitalization for at least two midnights. This is because of the severity of symptoms shown, intensity of services needed, and/or the medical risk in this patient being treated as an outpatient. - InPatient: Physician Admission Certification: I certify that this patient requires 2 or more midnights of care for the following reason:: After my assessment, the patient will require hospitalization for at least two midnights. This is because of the severity of symptoms shown, intensity of services needed, and/or the medical risk in this patient being treated as an outpatient. - . Bed Request Type: Telemetry Admitting Physician: Ky Todd Patient Diagnosis: Dyspnea, Morbid obesity, Pleural effusion, Hypokalemia
[2018-03-07 19:45] LABS: BASO # 0.1 K/uL (0.0-0.2); BASO % 0.9 % (0.0-2.0); EOS # 0.2 K/uL (0.0-0.7); EOS % 1.7 % (0.0-4.0); HEMOGLOBIN 12.5 g/dL (12.0-18.0); LYMPH # 2.5 K/uL (1.0-4.3); LYMPH % 19.4 % (20.0-40.0); MEAN CELL VOLUME 79.7 fL (80.0-94.0); MEAN CORPUSCULAR HEMOGLOBIN 26.4 pg (27.0-31.0); MEAN CORPUSCULAR HGB CONC 33.1 g/dL (33.0-37.0); MONO # 0.8 K/uL (0.0-0.8); MONO % 5.9 % (0.0-10.0); NEUT # 9.2 K/uL (1.8-7.0); NEUT % 72.1 % (50.0-75.0); NRBC % 0.1 % (0.0-2.0); RBC 4.72 Mil/uL (4.40-5.90); RED CELL DISTRIBUTION WIDTH 16.8 % (11.5-14.5)
[2018-03-07 19:50] LABS: VENOUS BLOOD GAS BASE EXCESS 2.2 mmol/L (0.0-2.0); VENOUS BLOOD GAS PCO2 43 mmHg (40-60); VENOUS BLOOD GAS PO2 45 mm/Hg (30-55); VENOUS BLOOD PH 7.41 (7.32-7.43)
[2018-03-07 19:55] LABS: WHITE BLOOD COUNT 12.7 K/uL (4.8-10.8)
[2018-03-07 20:00] LABS: ALB/GLOB RATIO 1.2 (1.0-2.1); ALBUMIN 3.9 g/dL (3.5-5.0); ALT/SGPT 28 U/L (21-72); AST/SGOT 27 U/L (17-59); BLOOD UREA NITROGEN 11 mg/dL (9-20); CALCIUM 8.6 mg/dl (8.6-10.4); GFR AFRICAN-AMERICAN > 60; GFR NON-AFRICAN AMERICAN > 60
[2018-03-07 20:06] LABS: INR 1.2; PROTHROMBIN TIME 13.1 SECONDS (9.7-12.2)
[2018-03-07 20:14] LABS: B-TYPE NATRIURETIC PEPTIDE 130 pg/mL (0-450)
--- NOTE | 2018-03-07 21:48 | CT ---
EXAM: CT Chest Without Intravenous Contrast EXAM DATE/TIME: Exam ordered 03/07/2018 7:25 PM CLINICAL HISTORY: 42 years old, male; Signs and symptoms; Shortness of breath and other: Pl effusion; Additional info: SOB, pleural effusion TECHNIQUE: Axial computed tomography images of the chest without intravenous contrast. All CT scans at this facility use at least one of these dose optimization techniques: automated exposure control; mA and/or kV adjustment per patient size (includes targeted exams where dose is matched to clinical indication); or iterative reconstruction. Coronal and sagittal reformatted images were created and reviewed. COMPARISON: No relevant prior studies available. FINDINGS: Lungs: Subsegmental atelectasis is noted in the superior segment and posterior basal segment of the right lower lobe. Subsegmental atelectasis is also noted within the right middle lobe. There is a coarse pleural-based reticular opacity at the left lung base which may represent discoid atelectasis or scar. Pleural space: There is a tiny amount of pleural fluid noted in the left posterior costophrenic angle No pneumothorax. . Heart: Unremarkable. No cardiomegaly. No significant pericardial effusion. Bones/joints: Unremarkable. No acute fracture. No dislocation. Soft tissues: Unremarkable. Vasculature: Unremarkable. No thoracic aortic aneurysm. Lymph nodes: Unremarkable. No enlarged lymph nodes. Kidneys and ureters: There is a 4 mm nonobstructing calcification in the upper pole of the right kidney. Upper abdomen: There is an eventration of the right hemidiaphragm. The liver is low in density. IMPRESSION: 1. Eventration of the right hemidiaphragm with subsegmental atelectasis noted in the right lower lobe and right middle lobe as described above. No pleural fluid on the right. 2. Discoid atelectasis or scar at the left lung base. Tiny pleural effusion a left posterior costophrenic angle. 3. Hepatic steatosis
[2018-03-07] MEDS ORDERED: Potassium Chloride 10 mEq ER Tab PO STA (22:05)
[2018-03-07 22:15] LABS: URINE BACTERIA RARE (<OCC); URINE BILIRUBIN NEGATIVE (NEGATIVE); URINE BLOOD NEGATIVE (NEGATIVE); URINE CLARITY Clear (Clear); URINE COLOR Yellow (YELLOW); URINE GLUCOSE (UA) NORMAL (Normal); URINE LEUKOCYTE ESTERASE NEG Leu/uL (Negative); URINE PROTEIN NEGATIVE (NEGATIVE); URINE UROBILINOGEN NORMAL mg/dL (0.2-1.0)
[2018-03-07] MEDS ORDERED: Potassium Chloride 20 mEq ER Tab PO ONE (22:29)
[2018-03-08] MEDS ORDERED: Potassium Chloride 20 mEq ER Tab PO STA (02:27)
[2018-03-08 08:02] LABS: BASO # 0.1 K/uL (0.0-0.2); BASO % 0.8 % (0.0-2.0); EOS # 0.2 K/uL (0.0-0.7); EOS % 2.4 % (0.0-4.0); HEMOGLOBIN 12.5 g/dL (12.0-18.0); LYMPH # 1.9 K/uL (1.0-4.3); LYMPH % 20.1 % (20.0-40.0); MEAN CELL VOLUME 80.1 fL (80.0-94.0); MEAN CORPUSCULAR HGB CONC 33.7 g/dL (33.0-37.0); MEAN PLATELET VOLUME 8.5 fL (7.2-11.7); MONO # 0.8 K/uL (0.0-0.8); MONO % 8.9 % (0.0-10.0); NEUT # 6.3 K/uL (1.8-7.0); NEUT % 67.8 % (50.0-75.0); NRBC % 0.1 % (0.0-2.0); RBC 4.63 Mil/uL (4.40-5.90); RED CELL DISTRIBUTION WIDTH 16.8 % (11.5-14.5); WHITE BLOOD COUNT 9.4 K/uL (4.8-10.8)
[2018-03-08] MEDS: Albuterol-Ipratrop 3 mg / 0.5 (3 ml) UD INH SCH ×2 (08:50→21:18)
[2018-03-08] MEDS: Fluticasone-Salmeterol 250-50mcg Diskus INH SCH ×2 (08:50→21:19)
[2018-03-08 09:06] LABS: ALB/GLOB RATIO 1.2 (1.0-2.1); ALBUMIN 3.5 g/dL (3.5-5.0); ALT/SGPT 29 U/L (21-72); AST/SGOT 26 U/L (17-59); BLOOD UREA NITROGEN 8 mg/dL (9-20); GFR AFRICAN-AMERICAN > 60; GFR NON-AFRICAN AMERICAN > 60
[2018-03-08] MEDS: Enoxaparin 40 mg Syringe SC SCH (09:17)
[2018-03-08] MEDS: Pantoprazole 40 mg EC Tab PO SCH (09:17)
--- NOTE | 2018-03-08 15:35 | CARD ---
APPROVED REPORT EKG Measurement Heart [id number] <Conclusion> Normal sinus rhythm Normal ECG
--- NOTE | 2018-03-08 17:47 | CP.PCM.CON ---
History of Present Illness - History of Present Illness History of Present Illness: INFECTIOUS DISEASE CONSULT; HPI; 42-year-old male with history of hypertension, COPD, morbid obesity and with history off pneumonia, pleural effusion with left chest tube in November 2017 with drainage of empyema and DEBRIDEMENT CHEST WALL ON WITH PLACEMENT OF WOUND VAC AND treated with prolonged antibiotics-6 weeks. Patient now comes to the ER complaining of shortness of breath and states he feels short of breath even at rest. Patient denies any chest pain, cough or expectoration. Patient denies any palpitations or hemoptysis. Patient underwent CT of the chest which showed eventration of the right hemidiaphragm and subsegmental atelectasis RLL /RML. No pleural effusion on the right. Discoid atelectasis/or scar left lung base. Tiny pleural effusion left posterior costophrenic angle. Patient denies any fever or chills. Scant expectoration which is whitish in color. PATIENT WAS PLACED ON iv CEFTRIAXONE 1 G ONCE A DAY DAILY BY PMD. INFECTIOUS DISEASE CONSULT REQUESTED BY DR Mauri JAMES FOR PROBABLE BRONCHITIS. PMHx: HTN,BRONCHITIS, MORBID OBESITY PSHx: HX OF LT CHEST TUBE, WOUND VAC AND DRAINAGE OF EMPYEMA 11/14-12/25/17/ AND ABDOMINAL WALL COLLECTION. FHx: denies significant family history Social: +tobacco user daily for 30+ years, occasional EtOH use, marijuana use ALLERGY; NKA, MEDS; PER CHART, Review of Systems - Constitutional Constitutional: Snoring. absent: Chills, Fever, Night Sweats, Weight Loss - EENT Eyes: absent: Blurred Vision Ears: absent: Ear Pain Nose/Mouth/Throat: As Per HPI, Dry Mouth. absent: Dysphagia, Mouth Lesions - Cardiovascular Cardiovascular: Dyspnea, Edema. absent: Chest Pain - Respiratory Respiratory: Cough, Dyspnea. absent: Hemoptysis - Gastrointestinal Gastrointestinal: absent: Diarrhea, Loose Stools - Genitourinary Genitourinary: absent: Urinary Hesitance, Freq UTI - Integumentary Integumentary: Dry Skin. absent: Rash - Neurological Neurological: Abnormal Gait - Psychiatric Psychiatric: Abnormal Sleep Pattern - Hematologic/Lymphatic Hematologic: As Per HPI. absent: Easy Bruising, Lymphadenopathy Past Patient History - Infectious Disease Hx of Infectious Diseases: None - Past Medical History & Family History Past Medical History?: No - Past Social History Smoking Status: Light Smoker < 10 Cigarettes Daily - CARDIAC Hx Hypertension: Yes - ENDOCRINE/METABOLIC Other/Comment: Obesity as per patient - INTEGUMENTARY Hx Cellulitis: Yes - MUSCULOSKELETAL/RHEUMATOLOGICAL Hx Falls: No - PSYCHIATRIC Hx Substance Use: Yes (marijuana) - SURGICAL HISTORY Hx Surgeries: Yes - ANESTHESIA Hx Anesthesia: Yes Hx Anesthesia Reactions: No Meds Allergies/Adverse Reactions: Allergies Allergy/AdvReac Type Severity Reaction Status Date / Time No Known Allergies Allergy Verified 03/07/18 18:39 - Medications Medications: Current Medications Acetaminophen (Tylenol 325mg Tab) 650 mg PO Q6 PRN PRN Reason: Pain, moderate (4-7) Last Admin: 03/08/18 15:53 Dose: 650 mg Albuterol/Ipratropium (Duoneb 3 Mg/0.5 Mg (3 Ml) Ud) 3 ml INH RQ6 [facility] Last Admin: 03/08/18 08:50 Dose: Not Given Enoxaparin Sodium (Lovenox) 40 mg SC DAILY [facility] Last Admin: 03/08/18 09:17 Dose: 40 mg Furosemide (Lasix) 40 mg IVP DAILY [facility] Last Admin: 03/08/18 09:21 Dose: 40 mg Ceftriaxone Sodium 1 gm/ (Sodium Chloride) 100 mls @ 100 mls/hr IVPB DAILY [facility]ANE PRN Reason: Protocol Last Admin: 03/08/18 09:17 Dose: 100 mls/hr Pantoprazole Sodium (Protonix Ec Tab) 40 mg PO DAILY [facility] Last Admin: 03/08/18 09:17 Dose: 40 mg Fluticasone/Salmeterol (Advair Diskus 250/50) 1 puff INH RQ12 [facility] Last Admin: 03/08/18 08:50 Dose: Not Given Physical Exam - Constitutional Appears: No Acute Distress Additional comments: MORBIDLY OBESE. - Head Exam Head Exam: NORMAL INSPECTION - Eye Exam Eye Exam: EOMI, PERRL - ENT Exam ENT Exam: Normal Oropharynx - Neck Exam Neck exam: Positive for: Normal Inspection - Respiratory Exam Respiratory Exam: Decreased Breath Sounds - Cardiovascular Exam Cardiovascular Exam: REGULAR RHYTHM, +S1, +S2 - GI/Abdominal Exam GI & Abdominal Exam: Normal Bowel Sounds, Soft. absent: Tenderness - Extremities Exam Extremities exam: Positive for: pedal edema (1+VE). Negative for: calf tenderness - Neurological Exam Neurological exam: Alert, CN II-XII Intact, Oriented x3 - Psychiatric Exam Psychiatric exam: Normal Mood - Skin Skin Exam: Dry, Normal Color Results - Vital Signs Recent Vital Signs: Last Vital Signs Temp 98.0 F 03/08/18 15:10 Pulse 78 03/08/18 15:10 Resp 20 03/08/18 15:10 BP 136/82 03/08/18 15:10 Pulse Ox 98 03/08/18 15:10 - Labs Result Diagrams: 03/08/18 07:41 03/08/18 07:41 Labs: Laboratory Results - last 24 hr 03/07/18 03/07/18 03/07/18 19:41 19:41 19:41 WBC 12.7 H D RBC 4.72 Hgb 12.5 Hct 37.6 MCV 79.7 L MCH 26.4 L MCHC 33.1 RDW 16.8 H Plt Count 317 MPV 8.0 Neut % (Auto) 72.1 Lymph % (Auto) 19.4 L [place] % (Auto) 5.9 Eos % (Auto) 1.7 Baso % (Auto) 0.9 Neut # (Auto) 9.2 H Lymph # (Auto) 2.5 [place] # (Auto) 0.8 Eos # (Auto) 0.2 Baso # (Auto) 0.1 PT 13.1 H INR 1.2 APTT 32 pO2 VBG pH VBG pCO2 VBG HCO3 VBG Total CO2 VBG O2 Sat (Calc) VBG Base Excess VBG Potassium Glucose Lactate Sodium 142 Potassium 3.0 L Chloride 105 Carbon Dioxide 27 Anion Gap 12 BUN 11 Creatinine 0.9 Est GFR ( Amer) > 60 Est GFR (Non-Af Amer) > 60 Random Glucose 122 H Calcium 8.6 Total Bilirubin 0.3 AST 27 ALT 28 Alkaline Phosphatase 151 H D NT-Pro-B Natriuret Pep 130 Total Protein 7.1 Albumin 3.9 Globulin 3.2 Albumin/Globulin Ratio 1.2 Venous Blood Potassium Urine Color Urine Clarity Urine pH Ur Specific [place] Urine Protein Urine Glucose (UA) Urine Ketones Urine Blood Urine Nitrate Urine Bilirubin Urine Urobilinogen Ur Leukocyte Esterase Urine WBC (Auto) Urine RBC (Auto) Urine Bacteria 03/07/18 03/07/18 03/08/18 19:46 21:46 07:41 WBC 9.4 RBC 4.63 Hgb 12.5 Hct 37.1 MCV 80.1 MCH 27.0 MCHC 33.7 RDW 16.8 H Plt Count 286 MPV 8.5 Neut % (Auto) 67.8 Lymph % (Auto) 20.1 [place] % (Auto) 8.9 Eos % (Auto) 2.4 Baso % (Auto) 0.8 Neut # (Auto) 6.3 Lymph # (Auto) 1.9 [place] # (Auto) 0.8 Eos # (Auto) 0.2 Baso # (Auto) 0.1 PT INR APTT pO2 45 VBG pH 7.41 VBG pCO2 43 VBG HCO3 26.2 VBG Total CO2 28.6 H VBG O2 Sat (Calc) 84.3 H VBG Base Excess 2.2 H VBG Potassium 2.7 L Glucose 119 H Lactate 1.1 Sodium 142.0 Potassium Chloride 108.0 H Carbon Dioxide Anion Gap BUN Creatinine Est GFR ( Amer) Est GFR (Non-Af Amer) Random Glucose Calcium Total Bilirubin AST ALT Alkaline Phosphatase NT-Pro-B Natriuret Pep Total Protein Albumin Globulin Albumin/Globulin Ratio Venous Blood Potassium 2.7 L Urine Color Yellow Urine Clarity Clear Urine pH 5.0 Ur Specific [place] 1.025 Urine Protein Negative Urine Glucose (UA) Normal Urine Ketones Negative Urine Blood Negative Urine Nitrate Negative Urine Bilirubin Negative Urine Urobilinogen Normal Ur Leukocyte Esterase Neg Urine WBC (Auto) < 1 Urine RBC (Auto) < 1 Urine Bacteria Rare 03/08/18 07:41 WBC RBC Hgb Hct MCV MCH MCHC RDW Plt Count MPV Neut % (Auto) Lymph % (Auto) [place] % (Auto) Eos % (Auto) Baso % (Auto) Neut # (Auto) Lymph # (Auto) [place] # (Auto) Eos # (Auto) Baso # (Auto) PT INR APTT pO2 VBG pH VBG pCO2 VBG HCO3 VBG Total CO2 VBG O2 Sat (Calc) VBG Base Excess VBG Potassium Glucose Lactate Sodium 140 Potassium 3.9 Chloride 105 Carbon Dioxide 24 Anion Gap 15 BUN 8 L Creatinine 0.7 L Est GFR ( Amer) > 60 Est GFR (Non-Af Amer) > 60 Random Glucose 95 Calcium 8.0 L Total Bilirubin 0.4 AST 26 ALT 29 Alkaline Phosphatase 109 NT-Pro-B Natriuret Pep Total Protein 6.5 Albumin 3.5 Globulin 3.0 Albumin/Globulin Ratio 1.2 Venous Blood Potassium Urine Color Urine Clarity Urine pH Ur Specific [place] Urine Protein Urine Glucose (UA) Urine Ketones Urine Blood Urine Nitrate Urine Bilirubin Urine Urobilinogen Ur Leukocyte Esterase Urine WBC (Auto) Urine RBC (Auto) Urine Bacteria - Imaging and Cardiology CT scan - chest Status: Report reviewed by me (SEE REPORT.) Assessment & Plan (1) Dyspnea Status: Acute (2) Obesity hypoventilation syndrome Status: Acute (3) Hypokalemia Status: Acute (4) Morbid obesity Status: Acute (5) VAMSHI (obstructive sleep apnea) Status: Acute - Assessment and Plan (Free Text) Plan: PLAN CONTINUE IV ABX .increase iv rocephin 1gm ivpb [id number] 03/08/18 PULMONARY TOILET. BRONCHODILATORS PT NEEDS W/U FOR VAMSHI. PULMONARY ON CASE .
--- NOTE | 2018-03-08 18:34 | CP.PCM.HP ---
History of Present Illness - History of Present Illness History of Present Illness: 42 y/o male with morbid obesity and history of asthma presents for dyspnea on exertion. Patient reports to be feeling better. Denies fever, chills, cough or phlegm. He is not on any ICS and uses albuterol PRN for dyspnea. He denies workup for VAMSHI in the past. Present on Admission - Present on Admission Any Indicators Present on Admission: No History of DVT/PE: No History of Uncontrolled Diabetes: No Urinary Catheter: No Decubitus Ulcer Present: No Past Patient History - Infectious Disease Hx of Infectious Diseases: None - Past Medical History & Family History Past Medical History?: No - Past Social History Smoking Status: Light Smoker < 10 Cigarettes Daily - CARDIAC Hx Hypertension: Yes - ENDOCRINE/METABOLIC Other/Comment: Obesity as per patient - INTEGUMENTARY Hx Cellulitis: Yes - MUSCULOSKELETAL/RHEUMATOLOGICAL Hx Falls: No - PSYCHIATRIC Hx Substance Use: Yes (marijuana) - SURGICAL HISTORY Hx Surgeries: Yes - ANESTHESIA Hx Anesthesia: Yes Hx Anesthesia Reactions: No Meds Allergies/Adverse Reactions: Allergies Allergy/AdvReac Type Severity Reaction Status Date / Time No Known Allergies Allergy Verified 03/07/18 18:39 Results - Vital Signs Recent Vital Signs: Last Vital Signs Temp 98.0 F 03/08/18 15:10 Pulse 78 03/08/18 15:10 Resp 20 03/08/18 15:10 BP 136/82 03/08/18 15:10 Pulse Ox 98 03/08/18 15:10 - Labs Result Diagrams: 03/08/18 07:41 03/08/18 07:41 Labs: Laboratory Results - last 24 hr 03/07/18 03/07/18 03/07/18 19:41 19:41 19:41 WBC 12.7 H D RBC 4.72 Hgb 12.5 Hct 37.6 MCV 79.7 L MCH 26.4 L MCHC 33.1 RDW 16.8 H Plt Count 317 MPV 8.0 Neut % (Auto) 72.1 Lymph % (Auto) 19.4 L [place] % (Auto) 5.9 Eos % (Auto) 1.7 Baso % (Auto) 0.9 Neut # (Auto) 9.2 H Lymph # (Auto) 2.5 [place] # (Auto) 0.8 Eos # (Auto) 0.2 Baso # (Auto) 0.1 PT 13.1 H INR 1.2 APTT 32 pO2 VBG pH VBG pCO2 VBG HCO3 VBG Total CO2 VBG O2 Sat (Calc) VBG Base Excess VBG Potassium Glucose Lactate Sodium 142 Potassium 3.0 L Chloride 105 Carbon Dioxide 27 Anion Gap 12 BUN 11 Creatinine 0.9 Est GFR ( Amer) > 60 Est GFR (Non-Af Amer) > 60 Random Glucose 122 H Calcium 8.6 Total Bilirubin 0.3 AST 27 ALT 28 Alkaline Phosphatase 151 H D NT-Pro-B Natriuret Pep 130 Total Protein 7.1 Albumin 3.9 Globulin 3.2 Albumin/Globulin Ratio 1.2 Venous Blood Potassium Urine Color Urine Clarity Urine pH Ur Specific [place] Urine Protein Urine Glucose (UA) Urine Ketones Urine Blood Urine Nitrate Urine Bilirubin Urine Urobilinogen Ur Leukocyte Esterase Urine WBC (Auto) Urine RBC (Auto) Urine Bacteria 03/07/18 03/07/18 03/08/18 19:46 21:46 07:41 WBC 9.4 RBC 4.63 Hgb 12.5 Hct 37.1 MCV 80.1 MCH 27.0 MCHC 33.7 RDW 16.8 H Plt Count 286 MPV 8.5 Neut % (Auto) 67.8 Lymph % (Auto) 20.1 [place] % (Auto) 8.9 Eos % (Auto) 2.4 Baso % (Auto) 0.8 Neut # (Auto) 6.3 Lymph # (Auto) 1.9 [place] # (Auto) 0.8 Eos # (Auto) 0.2 Baso # (Auto) 0.1 PT INR APTT pO2 45 VBG pH 7.41 VBG pCO2 43 VBG HCO3 26.2 VBG Total CO2 28.6 H VBG O2 Sat (Calc) 84.3 H VBG Base Excess 2.2 H VBG Potassium 2.7 L Glucose 119 H Lactate 1.1 Sodium 142.0 Potassium Chloride 108.0 H Carbon Dioxide Anion Gap BUN Creatinine Est GFR ( Amer) Est GFR (Non-Af Amer) Random Glucose Calcium Total Bilirubin AST ALT Alkaline Phosphatase NT-Pro-B Natriuret Pep Total Protein Albumin Globulin Albumin/Globulin Ratio Venous Blood Potassium 2.7 L Urine Color Yellow Urine Clarity Clear Urine pH 5.0 Ur Specific [place] 1.025 Urine Protein Negative Urine Glucose (UA) Normal Urine Ketones Negative Urine Blood Negative Urine Nitrate Negative Urine Bilirubin Negative Urine Urobilinogen Normal Ur Leukocyte Esterase Neg Urine WBC (Auto) < 1 Urine RBC (Auto) < 1 Urine Bacteria Rare 03/08/18 07:41 WBC RBC Hgb Hct MCV MCH MCHC RDW Plt Count MPV Neut % (Auto) Lymph % (Auto) [place] % (Auto) Eos % (Auto) Baso % (Auto) Neut # (Auto) Lymph # (Auto) [place] # (Auto) Eos # (Auto) Baso # (Auto) PT INR APTT pO2 VBG pH VBG pCO2 VBG HCO3 VBG Total CO2 VBG O2 Sat (Calc) VBG Base Excess VBG Potassium Glucose Lactate Sodium 140 Potassium 3.9 Chloride 105 Carbon Dioxide 24 Anion Gap 15 BUN 8 L Creatinine 0.7 L Est GFR ( Amer) > 60 Est GFR (Non-Af Amer) > 60 Random Glucose 95 Calcium 8.0 L Total Bilirubin 0.4 AST 26 ALT 29 Alkaline Phosphatase 109 NT-Pro-B Natriuret Pep Total Protein 6.5 Albumin 3.5 Globulin 3.0 Albumin/Globulin Ratio 1.2 Venous Blood Potassium Urine Color Urine Clarity Urine pH Ur Specific [place] Urine Protein Urine Glucose (UA) Urine Ketones Urine Blood Urine Nitrate Urine Bilirubin Urine Urobilinogen Ur Leukocyte Esterase Urine WBC (Auto) Urine RBC (Auto) Urine Bacteria
--- NOTE | 2018-03-08 18:47 | CP.PCM.CON ---
History of Present Illness - History of Present Illness History of Present Illness: 42 y/o male with morbid obesity and history of asthma presents for dyspnea on exertion. Patient reports to be feeling better. Denies fever, chills, cough or phlegm. He is not on any ICS and uses albuterol PRN for dyspnea. He denies workup for VAMSHI in the past. Patient is a current smoker. Review of Systems - Review of Systems All systems: reviewed and no additional remarkable complaints except (as mentioned in HPI) Past Patient History - Infectious Disease Hx of Infectious Diseases: None - Past Medical History & Family History Past Medical History?: No - Past Social History Smoking Status: Light Smoker < 10 Cigarettes Daily - CARDIAC Hx Hypertension: Yes - ENDOCRINE/METABOLIC Other/Comment: Obesity as per patient - INTEGUMENTARY Hx Cellulitis: Yes - MUSCULOSKELETAL/RHEUMATOLOGICAL Hx Falls: No - PSYCHIATRIC Hx Substance Use: Yes (marijuana) - SURGICAL HISTORY Hx Surgeries: Yes - ANESTHESIA Hx Anesthesia: Yes Hx Anesthesia Reactions: No Meds Allergies/Adverse Reactions: Allergies Allergy/AdvReac Type Severity Reaction Status Date / Time No Known Allergies Allergy Verified 03/07/18 18:39 - Medications Medications: Current Medications Acetaminophen (Tylenol 325mg Tab) 650 mg PO Q6 PRN PRN Reason: Pain, moderate (4-7) Last Admin: 03/08/18 15:53 Dose: 650 mg Albuterol/Ipratropium (Duoneb 3 Mg/0.5 Mg (3 Ml) Ud) 3 ml INH RQ6 [facility] Last Admin: 03/08/18 08:50 Dose: Not Given Enoxaparin Sodium (Lovenox) 40 mg SC DAILY [facility] Last Admin: 03/08/18 09:17 Dose: 40 mg Furosemide (Lasix) 40 mg IVP DAILY [facility] Last Admin: 03/08/18 09:21 Dose: 40 mg Ceftriaxone Sodium 1 gm/ (Sodium Chloride) 100 mls @ 100 mls/hr IVPB DAILY [facility] PRN Reason: Protocol Last Admin: 03/08/18 09:17 Dose: 100 mls/hr Pantoprazole Sodium (Protonix Ec Tab) 40 mg PO DAILY [facility] Last Admin: 03/08/18 09:17 Dose: 40 mg Fluticasone/Salmeterol (Advair Diskus 250/50) 1 puff INH RQ12 [facility] Last Admin: 06/21/18 08:50 Dose: Not Given Physical Exam - Head Exam Head Exam: NORMAL INSPECTION - Eye Exam Eye Exam: Normal appearance - ENT Exam ENT Exam: Mucous Membranes Moist - Respiratory Exam Respiratory Exam: Decreased Breath Sounds, Clear to Auscultation Bilateral - Cardiovascular Exam Cardiovascular Exam: REGULAR RHYTHM, +S1, +S2 - GI/Abdominal Exam GI & Abdominal Exam: Normal Bowel Sounds, Soft - Extremities Exam Extremities exam: Positive for: pedal edema - Neurological Exam Neurological exam: Alert, Oriented x3 Results - Vital Signs Recent Vital Signs: Last Vital Signs Temp 98.0 F 03/08/18 15:10 Pulse 78 03/08/18 15:10 Resp 20 03/08/18 15:10 BP 136/82 03/08/18 15:10 Pulse Ox 98 03/08/18 15:10 - Labs Result Diagrams: 03/08/18 07:41 03/08/18 07:41 Labs: Laboratory Results - last 24 hr 03/07/18 03/07/18 03/07/18 19:41 19:41 19:41 WBC 12.7 H D RBC 4.72 Hgb 12.5 Hct 37.6 MCV 79.7 L MCH 26.4 L MCHC 33.1 RDW 16.8 H Plt Count 317 MPV 8.0 Neut % (Auto) 72.1 Lymph % (Auto) 19.4 L [place] % (Auto) 5.9 Eos % (Auto) 1.7 Baso % (Auto) 0.9 Neut # (Auto) 9.2 H Lymph # (Auto) 2.5 [place] # (Auto) 0.8 Eos # (Auto) 0.2 Baso # (Auto) 0.1 PT 13.1 H INR 1.2 APTT 32 pO2 VBG pH VBG pCO2 VBG HCO3 VBG Total CO2 VBG O2 Sat (Calc) VBG Base Excess VBG Potassium Glucose Lactate Sodium 142 Potassium 3.0 L Chloride 105 Carbon Dioxide 27 Anion Gap 12 BUN 11 Creatinine 0.9 Est GFR ( Amer) > 60 Est GFR (Non-Af Amer) > 60 Random Glucose 122 H Calcium 8.6 Total Bilirubin 0.3 AST 27 ALT 28 Alkaline Phosphatase 151 H D NT-Pro-B Natriuret Pep 130 Total Protein 7.1 Albumin 3.9 Globulin 3.2 Albumin/Globulin Ratio 1.2 Venous Blood Potassium Urine Color Urine Clarity Urine pH Ur Specific [place] Urine Protein Urine Glucose (UA) Urine Ketones Urine Blood Urine Nitrate Urine Bilirubin Urine Urobilinogen Ur Leukocyte Esterase Urine WBC (Auto) Urine RBC (Auto) Urine Bacteria 03/07/18 03/07/18 03/08/18 19:46 21:46 07:41 WBC 9.4 RBC 4.63 Hgb 12.5 Hct 37.1 MCV 80.1 MCH 27.0 MCHC 33.7 RDW 16.8 H Plt Count 286 MPV 8.5 Neut % (Auto) 67.8 Lymph % (Auto) 20.1 [place] % (Auto) 8.9 Eos % (Auto) 2.4 Baso % (Auto) 0.8 Neut # (Auto) 6.3 Lymph # (Auto) 1.9 [place] # (Auto) 0.8 Eos # (Auto) 0.2 Baso # (Auto) 0.1 PT INR APTT pO2 45 VBG pH 7.41 VBG pCO2 43 VBG HCO3 26.2 VBG Total CO2 28.6 H VBG O2 Sat (Calc) 84.3 H VBG Base Excess 2.2 H VBG Potassium 2.7 L Glucose 119 H Lactate 1.1 Sodium 142.0 Potassium Chloride 108.0 H Carbon Dioxide Anion Gap BUN Creatinine Est GFR ( Amer) Est GFR (Non-Af Amer) Random Glucose Calcium Total Bilirubin AST ALT Alkaline Phosphatase NT-Pro-B Natriuret Pep Total Protein Albumin Globulin Albumin/Globulin Ratio Venous Blood Potassium 2.7 L Urine Color Yellow Urine Clarity Clear Urine pH 5.0 Ur Specific [place] 1.025 Urine Protein Negative Urine Glucose (UA) Normal Urine Ketones Negative Urine Blood Negative Urine Nitrate Negative Urine Bilirubin Negative Urine Urobilinogen Normal Ur Leukocyte Esterase Neg Urine WBC (Auto) < 1 Urine RBC (Auto) < 1 Urine Bacteria Rare 03/08/18 07:41 WBC RBC Hgb Hct MCV MCH MCHC RDW Plt Count MPV Neut % (Auto) Lymph % (Auto) [place] % (Auto) Eos % (Auto) Baso % (Auto) Neut # (Auto) Lymph # (Auto) [place] # (Auto) Eos # (Auto) Baso # (Auto) PT INR APTT pO2 VBG pH VBG pCO2 VBG HCO3 VBG Total CO2 VBG O2 Sat (Calc) VBG Base Excess VBG Potassium Glucose Lactate Sodium 140 Potassium 3.9 Chloride 105 Carbon Dioxide 24 Anion Gap 15 BUN 8 L Creatinine 0.7 L Est GFR ( Amer) > 60 Est GFR (Non-Af Amer) > 60 Random Glucose 95 Calcium 8.0 L Total Bilirubin 0.4 AST 26 ALT 29 Alkaline Phosphatase 109 NT-Pro-B Natriuret Pep Total Protein 6.5 Albumin 3.5 Globulin 3.0 Albumin/Globulin Ratio 1.2 Venous Blood Potassium Urine Color Urine Clarity Urine pH Ur Specific [place] Urine Protein Urine Glucose (UA) Urine Ketones Urine Blood Urine Nitrate Urine Bilirubin Urine Urobilinogen Ur Leukocyte Esterase Urine WBC (Auto) Urine RBC (Auto) Urine Bacteria Assessment & Plan (1) VAMSHI (obstructive sleep apnea) Status: Acute (2) Obesity hypoventilation syndrome Status: Acute (3) Dyspnea Status: Acute (4) Morbid obesity Status: Acute (5) Pleural effusion Status: Acute (6) Pulmonary hypertension Status: Acute - Assessment and Plan (Free Text) Plan: Bronchodilators Advair 250/50 mcg 1 P BID Lasix Continue Abx Physical therapy Patient will benefit from bariatric surgery as out patient Patient will need VAMSHI evalv as out patient DVT/GI prophalaxis
--- NOTE | 2018-03-08 21:37 | CP.PCM.HP ---
History of Present Illness - History of Present Illness History of Present Illness: 42-year-old morbidly obese male with past medical history of HTN, depression presents to ED with complaints of worsening shortness of breath. Patient states shortness of breath occurs with exertion and at rest. Denies fever, chills, chest pain, palpitations, nausea/vomiting/diarrhea, abdominal pain, dysuria. Pt able to speak complete sentences. Present on Admission - Present on Admission Any Indicators Present on Admission: No Review of Systems - Respiratory Respiratory: Dyspnea Past Patient History - Infectious Disease Hx of Infectious Diseases: None - Past Medical History & Family History Past Medical History?: No - Past Social History Smoking Status: Light Smoker < 10 Cigarettes Daily - CARDIAC Hx Hypertension: Yes - ENDOCRINE/METABOLIC Other/Comment: Obesity as per patient - INTEGUMENTARY Hx Cellulitis: Yes - MUSCULOSKELETAL/RHEUMATOLOGICAL Hx Falls: No - PSYCHIATRIC Hx Substance Use: Yes (marijuana) - SURGICAL HISTORY Hx Surgeries: Yes - ANESTHESIA Hx Anesthesia: Yes Hx Anesthesia Reactions: No Meds Allergies/Adverse Reactions: Allergies Allergy/AdvReac Type Severity Reaction Status Date / Time No Known Allergies Allergy Verified 03/07/18 18:39 Physical Exam - Constitutional Appears: Well, No Acute Distress - Head Exam Head Exam: ATRAUMATIC, NORMAL INSPECTION, NORMOCEPHALIC - Eye Exam Eye Exam: EOMI, Normal appearance, PERRL Pupil Exam: NORMAL ACCOMODATION, PERRL - ENT Exam ENT Exam: Mucous Membranes Moist, Normal Exam - Neck Exam Neck exam: Positive for: Normal Inspection - Respiratory Exam Respiratory Exam: Decreased Breath Sounds - Cardiovascular Exam Cardiovascular Exam: REGULAR RHYTHM, +S1, +S2 - GI/Abdominal Exam GI & Abdominal Exam: Diminished Bowel Sounds, Soft - Rectal Exam Rectal Exam: Deferred - Neurological Exam Neurological exam: Alert, Oriented x3 Results - Vital Signs Recent Vital Signs: Last Vital Signs Temp 98.0 F 03/08/18 15:10 Pulse 78 03/08/18 15:10 Resp 20 03/08/18 15:10 BP 136/82 03/08/18 15:10 Pulse Ox 98 03/08/18 15:10 - Labs Result Diagrams: 03/08/18 07:41 03/08/18 07:41 Labs: Laboratory Results - last 24 hr 03/07/18 03/08/18 03/08/18 21:46 07:41 07:41 WBC 9.4 RBC 4.63 Hgb 12.5 Hct 37.1 MCV 80.1 MCH 27.0 MCHC 33.7 RDW 16.8 H Plt Count 286 MPV 8.5 Neut % (Auto) 67.8 Lymph % (Auto) 20.1 [place] % (Auto) 8.9 Eos % (Auto) 2.4 Baso % (Auto) 0.8 Neut # (Auto) 6.3 Lymph # (Auto) 1.9 [place] # (Auto) 0.8 Eos # (Auto) 0.2 Baso # (Auto) 0.1 Sodium 140 Potassium 3.9 Chloride 105 Carbon Dioxide 24 Anion Gap 15 BUN 8 L Creatinine 0.7 L Est GFR ( Amer) > 60 Est GFR (Non-Af Amer) > 60 Random Glucose 95 Calcium 8.0 L Total Bilirubin 0.4 AST 26 ALT 29 Alkaline Phosphatase 109 Total Protein 6.5 Albumin 3.5 Globulin 3.0 Albumin/Globulin Ratio 1.2 Urine Color Yellow Urine Clarity Clear Urine pH 5.0 Ur Specific [place] 1.025 Urine Protein Negative Urine Glucose (UA) Normal Urine Ketones Negative Urine Blood Negative Urine Nitrate Negative Urine Bilirubin Negative Urine Urobilinogen Normal Ur Leukocyte Esterase Neg Urine WBC (Auto) < 1 Urine RBC (Auto) < 1 Urine Bacteria Rare Assessment & Plan (1) Dyspnea Status: Acute (2) Hypokalemia Status: Acute (3) Morbid obesity Status: Acute (4) VAMSHI (obstructive sleep apnea) Status: Acute (5) Obesity hypoventilation syndrome Status: Acute (6) Pleural effusion Status: Acute (7) Abdominal pain Status: Acute (8) Abscess Status: Acute (9) Bronchitis Status: Acute (10) Bronchospasm Status: Acute (11) Chronic venous stasis dermatitis Status: Acute (12) Cough Status: Acute (13) Dressing change or removal, surgical wound Status: Acute (14) Influenza-like illness Status: Acute (15) Left upper quadrant abdominal swelling Status: Acute (16) Leg edema Status: Acute (17) Leg swelling Status: Acute (18) Medical assessment Status: Acute (19) Pedal edema Status: Acute (20) Pneumonia Status: Acute (21) Pulmonary hypertension Status: Acute (22) Reactive airway disease Status: Acute (23) Rhabdomyolysis Status: Acute (24) Tinea pedis Status: Acute (25) Toothache Status: Acute (26) Upper respiratory infection Status: Acute (27) Uvulitis Status: Acute - Assessment and Plan (Free Text) Plan: DuoNebs Advair IV antibiotics IV Lasix KCl as ordered Protonix Lovenox Follow-up labs Continue as ordered pulm ID heart healthy diet
[2018-03-09] MEDS: Albuterol-Ipratrop 3 mg / 0.5 (3 ml) UD INH SCH ×4 (01:29→20:00)
[2018-03-09] MEDS: Fluticasone-Salmeterol 250-50mcg Diskus INH SCH ×2 (08:00→20:00)
[2018-03-09] MEDS: Enoxaparin 40 mg Syringe SC SCH (09:28)
[2018-03-09] MEDS: Pantoprazole 40 mg EC Tab PO SCH (09:28)
--- NOTE | 2018-03-09 10:58 | CP.PCM.PN ---
Subjective - Date & Time of Evaluation Date of Evaluation: 03/09/18 Time of Evaluation: 10:56 - Subjective Subjective: Patient is seen and examined No events overnight Reports improved dyspnea Objective - Vital Signs/Intake and Output Vital Signs (last 24 hours): Temp Pulse Resp BP Pulse Ox 98.1 F 62 20 153/89 H 97 03/09/18 07:55 03/09/18 07:55 03/09/18 07:55 03/09/18 09:28 03/09/18 07:55 Intake and Output: 03/09/18 03/09/18 06:59 18:59 Output Total 700 Balance -700 - Medications Medications: Current Medications Acetaminophen (Tylenol 325mg Tab) 650 mg PO Q6 PRN PRN Reason: Pain, moderate (4-7) Last Admin: 03/08/18 23:00 Dose: 650 mg Albuterol/Ipratropium (Duoneb 3 Mg/0.5 Mg (3 Ml) Ud) 3 ml INH RQ6 [facility] Last Admin: 03/09/18 08:00 Dose: 3 ml Enoxaparin Sodium (Lovenox) 40 mg SC DAILY [facility] Last Admin: 03/09/18 09:28 Dose: 40 mg Furosemide (Lasix) 40 mg IVP DAILY [facility] Last Admin: 03/09/18 09:28 Dose: 40 mg Ceftriaxone Sodium 1 gm/ (Sodium Chloride) 100 mls @ 100 mls/hr IVPB DAILY [facility] PRN Reason: Protocol Last Admin: 03/09/18 09:28 Dose: 100 mls/hr Pantoprazole Sodium (Protonix Ec Tab) 40 mg PO DAILY [facility] Last Admin: 03/09/18 09:28 Dose: 40 mg Fluticasone/Salmeterol (Advair Diskus 250/50) 1 puff INH RQ12 [facility] Last Admin: 03/09/18 08:00 Dose: Not Given - Labs Labs: 03/08/18 07:41 03/08/18 07:41 PT 13.1 SECONDS (9.7-12.2) H 03/07/18 19:41 INR 1.2 03/07/18 19:41 APTT 32 SECONDS (21-34) 03/07/18 19:41 - Head Exam Head Exam: NORMAL INSPECTION - Eye Exam Eye Exam: Normal appearance - ENT Exam ENT Exam: Mucous Membranes Moist - Cardiovascular Exam Cardiovascular Exam: REGULAR RHYTHM, +S1, +S2 - GI/Abdominal Exam GI & Abdominal Exam: Soft, Normal Bowel Sounds - Extremities Exam Extremities Exam: Pedal Edema - Neurological Exam Neurological Exam: Alert, Oriented x3 Assessment and Plan (1) VAMSHI (obstructive sleep apnea) Status: Acute (2) Obesity hypoventilation syndrome Status: Acute (3) Dyspnea Status: Acute (4) Morbid obesity Status: Acute (5) Pleural effusion Status: Acute (6) Pulmonary hypertension Status: Acute - Assessment and Plan (Free Text) Plan: Bronchodilators Advair PT/OT Abx DVT/GI prophalaxis
--- NOTE | 2018-03-09 12:53 | CP.PCM.PN ---
Subjective - Date & Time of Evaluation Date of Evaluation: 03/09/18 Time of Evaluation: 10:00 - Subjective Subjective: clinically same iv rx in progress no chest pain Objective - Vital Signs/Intake and Output Vital Signs (last 24 hours): Temp Pulse Resp BP Pulse Ox 98.1 F 62 20 153/89 H 97 03/09/18 07:55 03/09/18 07:55 03/09/18 07:55 03/09/18 09:28 03/09/18 07:55 Intake and Output: 03/09/18 03/09/18 06:59 18:59 Output Total 700 Balance -700 - Medications Medications: Current Medications Acetaminophen (Tylenol 325mg Tab) 650 mg PO Q6 PRN PRN Reason: Pain, moderate (4-7) Last Admin: 03/08/18 23:00 Dose: 650 mg Albuterol/Ipratropium (Duoneb 3 Mg/0.5 Mg (3 Ml) Ud) 3 ml INH RQ6 [facility] Last Admin: 03/09/18 08:00 Dose: 3 ml Enoxaparin Sodium (Lovenox) 40 mg SC DAILY [facility] Last Admin: 03/09/18 09:28 Dose: 40 mg Furosemide (Lasix) 40 mg IVP DAILY [facility] Last Admin: 03/09/18 09:28 Dose: 40 mg Ceftriaxone Sodium 1 gm/ (Sodium Chloride) 100 mls @ 100 mls/hr IVPB Q12H [facility] PRN Reason: Protocol Pantoprazole Sodium (Protonix Ec Tab) 40 mg PO DAILY [facility] Last Admin: 03/09/18 09:28 Dose: 40 mg Fluticasone/Salmeterol (Advair Diskus 250/50) 1 puff INH RQ12 [facility] Last Admin: 03/09/18 08:00 Dose: Not Given - Labs Labs: 03/08/18 07:41 03/08/18 07:41 PT 13.1 SECONDS (9.7-12.2) H 03/07/18 19:41 INR 1.2 03/07/18 19:41 APTT 32 SECONDS (21-34) 03/07/18 19:41 - Constitutional Appears: Well, No Acute Distress - Head Exam Head Exam: ATRAUMATIC, NORMAL INSPECTION, NORMOCEPHALIC - Eye Exam Eye Exam: EOMI, Normal appearance, PERRL Pupil Exam: NORMAL ACCOMODATION, PERRL - ENT Exam ENT Exam: Mucous Membranes Moist, Normal Exam - Neck Exam Neck Exam: Full ROM, Normal Inspection. absent: Lymphadenopathy - Respiratory Exam Respiratory Exam: Decreased Breath Sounds - Cardiovascular Exam Cardiovascular Exam: REGULAR RHYTHM, +S1, +S2 - GI/Abdominal Exam GI & Abdominal Exam: Soft, Diminished Bowel Sounds - Rectal Exam Rectal Exam: Deferred - Neurological Exam Neurological Exam: Alert, Awake, Oriented x3 Assessment and Plan (1) Dyspnea Status: Acute (2) Hypokalemia Status: Acute (3) Morbid obesity Status: Acute (4) VAMSHI (obstructive sleep apnea) Status: Acute (5) Obesity hypoventilation syndrome Status: Acute (6) Pleural effusion Status: Acute (7) Abdominal pain Status: Acute (8) Abscess Status: Acute (9) Bronchitis Status: Acute (10) Bronchospasm Status: Acute (11) Chronic venous stasis dermatitis Status: Acute (12) Cough Status: Acute (13) Dressing change or removal, surgical wound Status: Acute (14) Influenza-like illness Status: Acute (15) Left upper quadrant abdominal swelling Status: Acute (16) Leg edema Status: Acute (17) Leg swelling Status: Acute (18) Medical assessment Status: Acute (19) Pedal edema Status: Acute (20) Pneumonia Status: Acute (21) Pulmonary hypertension Status: Acute (22) Reactive airway disease Status: Acute (23) Rhabdomyolysis Status: Acute (24) Tinea pedis Status: Acute (25) Toothache Status: Acute (26) Upper respiratory infection Status: Acute (27) Uvulitis Status: Acute - Assessment and Plan (Free Text) Plan: pulm dr sands ID dr [place] gil iv abx iv lasix advair duoneb support meds reviewed labs reviewed gil as ordered lovenox protonix
[2018-03-10] MEDS: Albuterol-Ipratrop 3 mg / 0.5 (3 ml) UD INH SCH ×3 (01:54→14:23)
[2018-03-10] MEDS: Fluticasone-Salmeterol 250-50mcg Diskus INH SCH (08:12)
[2018-03-10] MEDS: Pantoprazole 40 mg EC Tab PO SCH (10:19)
[2018-03-10] MEDS: Enoxaparin 40 mg Syringe SC SCH (10:21)
--- NOTE | 2018-03-10 12:31 | CP.PCM.PN ---
Subjective - Date & Time of Evaluation Date of Evaluation: 03/10/18 Time of Evaluation: 12:31 - Subjective Subjective: CHIEF COMPLAINTS TODAY : AFEBRILE, DENIES DYSPNEA. C/O LT. KNEE STIFFNESS FROM LYING IN BED ROS. HEENT : N. Resp : No cough, wheezing ,pleuritic CP ,or hemoptysis Cardio : No anginal CP, PND, orthopnea, palpitation GI : No abd.pain, n/v ,diarrhea or GI bleeding . [employer] : No headache, vertigo, focal deficit. Musculoskel : No joint swelling , Derm : No rash Psych : Normal affect. Ext : No swelling ,calf pain PE. Pt. is alert awake in no distress. V.S As noted in the chart Head ,ear nose,throat and eyes : Normal. Neck : Supple with normal carotids. Lungs: FA[employer] ENTRY Heart : S1 & S2 normal with S4. No murmur. Abd : Soft non tender with normal bowel sounds. Neuro : Moves all ext. with no localized deficit. Ext : +VE EDEMA LE with intact pulses.Non tender calves Derm : No rashes or decubitus ulcer. LABS/RADIOLOGY: WBC 9.4 IMPROVING CREAT 0.7/BUN 7. LFTS N Objective - Vital Signs/Intake and Output Vital Signs (last 24 hours): Temp Pulse Resp BP Pulse Ox 97.5 F L 79 20 161/101 H 100 03/10/18 08:50 03/10/18 08:50 03/10/18 08:50 03/10/18 10:19 03/10/18 08:50 Intake and Output: 03/10/18 03/10/18 06:59 18:59 Output Total 400 Balance -400 - Medications Medications: Current Medications Acetaminophen (Tylenol 325mg Tab) 650 mg PO Q6 PRN PRN Reason: Pain, moderate (4-7) Last Admin: 03/09/18 22:25 Dose: 650 mg Albuterol/Ipratropium (Duoneb 3 Mg/0.5 Mg (3 Ml) Ud) 3 ml INH RQ6 [facility] Last Admin: 03/10/18 08:12 Dose: Not Given Enoxaparin Sodium (Lovenox) 40 mg SC DAILY [facility] Last Admin: 03/10/18 10:21 Dose: 40 mg Furosemide (Lasix) 40 mg IVP DAILY [facility] Last Admin: 03/10/18 10:19 Dose: 40 mg Ceftriaxone Sodium 1 gm/ (Sodium Chloride) 100 mls @ 100 mls/hr IVPB Q12H [facility] PRN Reason: Protocol Last Admin: 03/10/18 10:20 Dose: 100 mls/hr Pantoprazole Sodium (Protonix Ec Tab) 40 mg PO DAILY [facility] Last Admin: 03/10/18 10:19 Dose: 40 mg Fluticasone/Salmeterol (Advair Diskus 250/50) 1 puff INH RQ12 [facility] Last Admin: 03/10/18 08:12 Dose: Not Given - Labs Labs: 03/08/18 07:41 03/08/18 07:41 PT 13.1 SECONDS (9.7-12.2) H 03/07/18 19:41 INR 1.2 03/07/18 19:41 APTT 32 SECONDS (21-34) 03/07/18 19:41 Assessment and Plan (1) Dyspnea Status: Acute (2) Obesity hypoventilation syndrome Status: Acute (3) Hypokalemia Status: Acute (4) Morbid obesity Status: Acute (5) VAMSHI (obstructive sleep apnea) Status: Acute - Assessment and Plan (Free Text) Plan: CONTINUE IV ABX . ON iv ROCEPHIN 1gm ivpb [id number] 03/08/18. PULMONARY TOILET. BRONCHODILATORS . CONSIDER PT .
--- NOTE | 2018-03-10 14:52 | CP.PCM.PN ---
Subjective - Date & Time of Evaluation Date of Evaluation: 03/10/18 Time of Evaluation: 10:00 - Subjective Subjective: clinically same Objective - Vital Signs/Intake and Output Vital Signs (last 24 hours): Temp Pulse Resp BP Pulse Ox 97.5 F L 79 20 161/101 H 100 03/10/18 08:50 03/10/18 08:50 03/10/18 08:50 03/10/18 10:19 03/10/18 08:50 Intake and Output: 03/10/18 03/10/18 06:59 18:59 Output Total 400 Balance -400 - Medications Medications: Current Medications Acetaminophen (Tylenol 325mg Tab) 650 mg PO Q6 PRN PRN Reason: Pain, moderate (4-7) Last Admin: 03/09/18 22:25 Dose: 650 mg Albuterol/Ipratropium (Duoneb 3 Mg/0.5 Mg (3 Ml) Ud) 3 ml INH RQ6 [facility] Last Admin: 03/10/18 14:23 Dose: Not Given Enoxaparin Sodium (Lovenox) 40 mg SC DAILY [facility] Last Admin: 03/10/18 10:21 Dose: 40 mg Furosemide (Lasix) 40 mg IVP DAILY [facility] Last Admin: 03/10/18 10:19 Dose: 40 mg Ceftriaxone Sodium 1 gm/ (Sodium Chloride) 100 mls @ 100 mls/hr IVPB Q12H [facility] PRN Reason: Protocol Last Admin: 03/10/18 10:20 Dose: 100 mls/hr Pantoprazole Sodium (Protonix Ec Tab) 40 mg PO DAILY [facility] Last Admin: 03/10/18 10:19 Dose: 40 mg Fluticasone/Salmeterol (Advair Diskus 250/50) 1 puff INH RQ12 [facility] Last Admin: 03/10/18 08:12 Dose: Not Given - Labs Labs: 03/08/18 07:41 03/08/18 07:41 PT 13.1 SECONDS (9.7-12.2) H 03/07/18 19:41 INR 1.2 03/07/18 19:41 APTT 32 SECONDS (21-34) 03/07/18 19:41 - Constitutional Appears: Well - Head Exam Head Exam: ATRAUMATIC, NORMAL INSPECTION, NORMOCEPHALIC - Eye Exam Eye Exam: EOMI, Normal appearance, PERRL Pupil Exam: NORMAL ACCOMODATION, PERRL - ENT Exam ENT Exam: Mucous Membranes Moist, Normal Exam - Neck Exam Neck Exam: Full ROM, Normal Inspection. absent: Lymphadenopathy - Respiratory Exam Respiratory Exam: Decreased Breath Sounds - Cardiovascular Exam Cardiovascular Exam: REGULAR RHYTHM, +S1, +S2 - GI/Abdominal Exam GI & Abdominal Exam: Soft, Diminished Bowel Sounds - Rectal Exam Rectal Exam: Deferred Assessment and Plan (1) Dyspnea Status: Acute (2) Hypokalemia Status: Acute (3) Morbid obesity Status: Acute (4) VAMSHI (obstructive sleep apnea) Status: Acute (5) Obesity hypoventilation syndrome Status: Acute (6) Pleural effusion Status: Acute (7) Abdominal pain Status: Acute (8) Abscess Status: Acute (9) Bronchitis Status: Acute (10) Bronchospasm Status: Acute (11) Chronic venous stasis dermatitis Status: Acute (12) Cough Status: Acute (13) Dressing change or removal, surgical wound Status: Acute (14) Influenza-like illness Status: Acute (15) Left upper quadrant abdominal swelling Status: Acute (16) Leg edema Status: Acute (17) Leg swelling Status: Acute (18) Medical assessment Status: Acute (19) Pedal edema Status: Acute (20) Pneumonia Status: Acute (21) Pulmonary hypertension Status: Acute (22) Reactive airway disease Status: Acute (23) Rhabdomyolysis Status: Acute (24) Tinea pedis Status: Acute (25) Toothache Status: Acute (26) Upper respiratory infection Status: Acute (27) Uvulitis Status: Acute
[2018-03-11] MEDS: Albuterol-Ipratrop 3 mg / 0.5 (3 ml) UD INH SCH ×4 (01:45→20:13)
[2018-03-11] MEDS: Fluticasone-Salmeterol 250-50mcg Diskus INH SCH ×3 (09:42→20:13)
[2018-03-11] MEDS: Pantoprazole 40 mg EC Tab PO SCH (09:54)
[2018-03-11] MEDS: Enoxaparin 40 mg Syringe SC SCH (09:54)
--- NOTE | 2018-03-11 15:50 | US ---
PROCEDURE: Ultrasound of the left axilla HISTORY: Lumps in Left axilla COMPARISON: None TECHNIQUE: Targeted high-resolution ultrasound of the left axilla was performed with real-time linear scanner. FINDINGS: There are 3 morphologically normal axillary lymph nodes, the largest measures 1.2 cm. No evidence for mass or fluid collection IMPRESSION: Morphologically normal axillary lymph nodes, the largest measures 1.2 cm.
--- NOTE | 2018-03-11 15:54 | CP.PCM.PN ---
Subjective - Date & Time of Evaluation Date of Evaluation: 03/11/18 Time of Evaluation: 10:20 - Subjective Subjective: clinically same Objective - Vital Signs/Intake and Output Vital Signs (last 24 hours): Temp Pulse Resp BP Pulse Ox 98.2 F 84 20 156/97 H 95 03/11/18 07:30 03/11/18 07:30 03/11/18 07:30 03/11/18 09:55 03/11/18 07:30 Intake and Output: 03/11/18 03/11/18 06:59 18:59 Output Total 800 Balance -800 - Medications Medications: Current Medications Acetaminophen (Tylenol 325mg Tab) 650 mg PO Q6 PRN PRN Reason: Pain, moderate (4-7) Last Admin: 03/11/18 13:14 Dose: 650 mg Albuterol/Ipratropium (Duoneb 3 Mg/0.5 Mg (3 Ml) Ud) 3 ml INH RQ6 [facility] Last Admin: 03/11/18 14:50 Dose: 3 ml Enoxaparin Sodium (Lovenox) 40 mg SC DAILY [facility] Last Admin: 03/11/18 09:54 Dose: 40 mg Furosemide (Lasix) 40 mg IVP DAILY [facility] Last Admin: 03/11/18 09:55 Dose: 40 mg Ceftriaxone Sodium 1 gm/ (Sodium Chloride) 100 mls @ 100 mls/hr IVPB Q12H [facility] PRN Reason: Protocol Last Admin: 03/11/18 09:55 Dose: 100 mls/hr Pantoprazole Sodium (Protonix Ec Tab) 40 mg PO DAILY [facility] Last Admin: 03/11/18 09:54 Dose: 40 mg Fluticasone/Salmeterol (Advair Diskus 250/50) 1 puff INH RQ12 [facility] Last Admin: 03/11/18 09:58 Dose: 1 puff - Labs Labs: 03/08/18 07:41 03/08/18 07:41 PT 13.1 SECONDS (9.7-12.2) H 03/07/18 19:41 INR 1.2 03/07/18 19:41 APTT 32 SECONDS (21-34) 03/07/18 19:41 - Constitutional Appears: Well - Head Exam Head Exam: ATRAUMATIC, NORMAL INSPECTION, NORMOCEPHALIC - Eye Exam Eye Exam: EOMI, Normal appearance, PERRL Pupil Exam: NORMAL ACCOMODATION, PERRL - ENT Exam ENT Exam: Mucous Membranes Moist, Normal Exam - Neck Exam Neck Exam: Full ROM, Normal Inspection. absent: Lymphadenopathy - Respiratory Exam Respiratory Exam: Decreased Breath Sounds - Cardiovascular Exam Cardiovascular Exam: REGULAR RHYTHM, +S1, +S2 - GI/Abdominal Exam GI & Abdominal Exam: Soft, Diminished Bowel Sounds - Rectal Exam Rectal Exam: Deferred Assessment and Plan (1) Dyspnea Status: Acute (2) Hypokalemia Status: Acute (3) Morbid obesity Status: Acute (4) VAMSHI (obstructive sleep apnea) Status: Acute (5) Obesity hypoventilation syndrome Status: Acute (6) Pleural effusion Status: Acute (7) Abdominal pain Status: Acute (8) Abscess Status: Acute (9) Bronchitis Status: Acute (10) Bronchospasm Status: Acute (11) Chronic venous stasis dermatitis Status: Acute (12) Cough Status: Acute (13) Dressing change or removal, surgical wound Status: Acute (14) Influenza-like illness Status: Acute (15) Left upper quadrant abdominal swelling Status: Acute (16) Leg edema Status: Acute (17) Leg swelling Status: Acute (18) Medical assessment Status: Acute (19) Pedal edema Status: Acute (20) Pneumonia Status: Acute (21) Pulmonary hypertension Status: Acute (22) Reactive airway disease Status: Acute (23) Rhabdomyolysis Status: Acute (24) Tinea pedis Status: Acute (25) Toothache Status: Acute (26) Upper respiratory infection Status: Acute (27) Uvulitis Status: Acute
[2018-03-12] MEDS: Albuterol-Ipratrop 3 mg / 0.5 (3 ml) UD INH SCH ×4 (02:54→19:51)
--- NOTE | 2018-03-12 07:50 | CP.PCM.PN ---
Subjective - Date & Time of Evaluation Date of Evaluation: 03/12/18 Time of Evaluation: 10:30 - Subjective Subjective: PGY 3 Medicine Progress Note- Dr. Mauri Todd's service Patient seen and examined in no apparent acute distress. Patient states that his breathing is improved. On further questioning, patient states that he has never had a work up for obstructive sleep apnea. Patient has been told that he snores. He admits to sleeping in short 3-4 hr moments at a time. He denies subjective fevers or chills, nausea, vomiting or diarrhea at this time. Objective - Vital Signs/Intake and Output Vital Signs (last 24 hours): Temp Pulse Resp BP Pulse Ox 97.3 F L 92 H 20 149/98 H 97 03/12/18 04:55 03/12/18 04:55 03/12/18 04:55 03/12/18 04:55 03/12/18 04:55 Intake and Output: 03/12/18 03/12/18 06:59 18:59 Intake Total 480 Balance 480 - Medications Medications: Current Medications Acetaminophen (Tylenol 325mg Tab) 650 mg PO Q6 PRN PRN Reason: Pain, moderate (4-7) Last Admin: 03/12/18 00:11 Dose: 650 mg Albuterol/Ipratropium (Duoneb 3 Mg/0.5 Mg (3 Ml) Ud) 3 ml INH RQ6 [facility] Last Admin: 03/12/18 02:54 Dose: Not Given Enoxaparin Sodium (Lovenox) 40 mg SC DAILY [facility] Last Admin: 03/11/18 09:54 Dose: 40 mg Furosemide (Lasix) 40 mg IVP DAILY [facility] Last Admin: 03/11/18 09:55 Dose: 40 mg Ceftriaxone Sodium 1 gm/ (Sodium Chloride) 100 mls @ 100 mls/hr IVPB Q12H [facility] PRN Reason: Protocol Last Admin: 03/11/18 20:10 Dose: 100 mls/hr Pantoprazole Sodium (Protonix Ec Tab) 40 mg PO DAILY [facility] Last Admin: 03/11/18 09:54 Dose: 40 mg Fluticasone/Salmeterol (Advair Diskus 250/50) 1 puff INH RQ12 [facility] Last Admin: 03/11/18 20:13 Dose: 1 puff - Labs Labs: 03/08/18 07:41 03/08/18 07:41 PT 13.1 SECONDS (9.7-12.2) H 03/07/18 19:41 INR 1.2 03/07/18 19:41 APTT 32 SECONDS (21-34) 03/07/18 19:41 - Constitutional Appears: Non-toxic, No Acute Distress, Other (large body habitus) - Head Exam Head Exam: ATRAUMATIC, NORMAL INSPECTION - Eye Exam Eye Exam: EOMI, Normal appearance, PERRL Pupil Exam: NORMAL ACCOMODATION - ENT Exam ENT Exam: Mucous Membranes Moist - Neck Exam Neck Exam: Full ROM - Respiratory Exam Respiratory Exam: NORMAL BREATHING PATTERN. absent: Wheezes - Cardiovascular Exam Cardiovascular Exam: +S1, +S2 - Neurological Exam Neurological Exam: Alert, Awake, Oriented x3 - Psychiatric Exam Psychiatric exam: Normal Affect, Normal Mood - Skin Skin Exam: Normal Color, Warm Assessment and Plan (1) Dyspnea Assessment & Plan: Chest CT on admission confirmed discoid atelectasis or scar with small pleural effusion Patient is afebrile. On Ceftriaxone Continue donaldo Montilla, pulmonary hygiene Status: Acute (2) VAMSHI (obstructive sleep apnea) Assessment & Plan: Patient will need an outpatient workup . Status: Acute (3) Hypokalemia Assessment & Plan: Repleted. F/U BMP Cont to monitor Status: Acute (4) Tobacco use disorder Assessment & Plan: Counseling cessation Status: Acute (5) Morbid obesity Assessment & Plan: Diet and exercise counseling Likely contributing to suspected apneic night events PT eval warranted due to gait dysfunction Status: Acute (6) Prophylactic measure Assessment & Plan: Lovenox SC daily PPI daily Status: Acute - Assessment and Plan (Free Text) Assessment: Awaiting insurance authorization
[2018-03-12] MEDS: Fluticasone-Salmeterol 250-50mcg Diskus INH SCH ×2 (08:15→19:51)
[2018-03-12] MEDS: Enoxaparin 40 mg Syringe SC SCH (09:45)
[2018-03-12] MEDS: Pantoprazole 40 mg EC Tab PO SCH (09:45)
[2018-03-12 11:34] LABS: BASO # 0.1 K/uL (0.0-0.2); BASO % 0.8 % (0.0-2.0); EOS # 0.1 K/uL (0.0-0.7); EOS % 1.1 % (0.0-4.0); LYMPH # 1.7 K/uL (1.0-4.3); LYMPH % 19.9 % (20.0-40.0); MEAN CELL VOLUME 79.5 fL (80.0-94.0); MEAN CORPUSCULAR HEMOGLOBIN 27.2 pg (27.0-31.0); MEAN CORPUSCULAR HGB CONC 34.2 g/dL (33.0-37.0); MEAN PLATELET VOLUME 8.5 fL (7.2-11.7); MONO # 0.7 K/uL (0.0-0.8); MONO % 8.3 % (0.0-10.0); NEUT # 5.9 K/uL (1.8-7.0); NEUT % 69.9 % (50.0-75.0); RBC 5.16 Mil/uL (4.40-5.90); WHITE BLOOD COUNT 8.5 K/uL (4.8-10.8)
[2018-03-12 11:48] LABS: BLOOD UREA NITROGEN 10 mg/dL (9-20); CALCIUM 8.9 mg/dl (8.6-10.4); GFR AFRICAN-AMERICAN > 60; GFR NON-AFRICAN AMERICAN > 60
[2018-03-12] MEDS ORDERED: Potassium Chloride 20 mEq ER Tab PO ONE (16:25)
--- NOTE | 2018-03-12 18:58 | CP.PCM.PN ---
Subjective - Date & Time of Evaluation Date of Evaluation: 03/12/18 Time of Evaluation: 18:58 - Subjective Subjective: CHIEF COMPLAINTS TODAY : AFEBRILE, C/O DYSPNEA ON EXERTION. OOB ON CARDIAC CHAIR. ROS. HEENT : N. Resp : No cough, wheezing ,pleuritic CP ,or hemoptysis Cardio : No anginal CP, PND, orthopnea, palpitation GI : No abd.pain, n/v ,diarrhea or GI bleeding . DIRECTOR OF MEDICARE : No headache, vertigo, focal deficit. Musculoskel : No joint swelling , Derm : No rash Psych : Normal affect. Ext : No swelling ,calf pain PE. Pt. is alert awake in no distress. V.S As noted in the chart Head ,ear nose,throat and eyes : Normal. Neck : Supple with normal carotids. Lungs: FAIR AIR ENTRY Heart : S1 & S2 normal with S4. No murmur. Abd : Soft non tender with normal bowel sounds. Neuro : Moves all ext. with no localized deficit. Ext : +VE EDEMA LE with intact pulses.Non tender calves Derm : No rashes or decubitus ulcer. LABS/RADIOLOGY: WBC IMPROVING RENAL FUNCTION STABLE LFTS N Objective - Vital Signs/Intake and Output Vital Signs (last 24 hours): Temp Pulse Resp BP Pulse Ox 98.2 F 92 H 20 115/71 96 03/12/18 08:20 03/12/18 08:20 03/12/18 08:20 03/12/18 09:45 03/12/18 08:20 Intake and Output: 03/12/18 03/12/18 06:59 18:59 Intake Total 480 Balance 480 - Medications Medications: Current Medications Acetaminophen (Tylenol 325mg Tab) 650 mg PO Q6 PRN PRN Reason: Pain, moderate (4-7) Last Admin: 03/12/18 00:11 Dose: 650 mg Albuterol/Ipratropium (Duoneb 3 Mg/0.5 Mg (3 Ml) Ud) 3 ml INH RQ6 [facility] Last Admin: 03/12/18 16:53 Dose: Not Given Enoxaparin Sodium (Lovenox) 40 mg SC DAILY [facility] Last Admin: 03/12/18 09:45 Dose: 40 mg Furosemide (Lasix) 40 mg IVP DAILY [facility] Last Admin: 03/12/18 09:45 Dose: 40 mg Ceftriaxone Sodium 1 gm/ (Sodium Chloride) 100 mls @ 100 mls/hr IVPB Q12H [facility] PRN Reason: Protocol Last Admin: 03/12/18 09:44 Dose: 100 mls/hr Pantoprazole Sodium (Protonix Ec Tab) 40 mg PO DAILY [facility] Last Admin: 03/12/18 09:45 Dose: 40 mg Fluticasone/Salmeterol (Advair Diskus 250/50) 1 puff INH RQ12 [facility] Last Admin: 03/12/18 08:15 Dose: 1 puff - Labs Labs: 03/12/18 11:29 03/12/18 11:29 PT 13.1 SECONDS (9.7-12.2) H 03/07/18 19:41 INR 1.2 03/07/18 19:41 APTT 32 SECONDS (21-34) 03/07/18 19:41 Assessment and Plan (1) Dyspnea Assessment & Plan: CONTINUE IV ABX . ON iv ROCEPHIN 1gm ivpb [id number] 03/08/18. PULMONARY TOILET. BRONCHODILATORS . CONSIDER PT . 2D ECHO TO EVALUATE LVEF /LVH Status: Acute (2) Obesity hypoventilation syndrome Status: Acute (3) Hypokalemia Status: Acute (4) Morbid obesity Status: Acute (5) VAMSHI (obstructive sleep apnea) Assessment & Plan: PT FOR VAMSHI PER PULMONARY. PT TO BE REFERRED [facility] FOR VAMSHI W/U AND POSSIBLE FOR BARIATRIC SURGERY. Status: Acute
--- NOTE | 2018-03-12 20:59 | CP.PCM.PN ---
Subjective - Date & Time of Evaluation Date of Evaluation: 03/12/18 Time of Evaluation: 11:00 - Subjective Subjective: clinically same Objective - Vital Signs/Intake and Output Vital Signs (last 24 hours): Temp Pulse Resp BP Pulse Ox 98.2 F 92 H 20 115/71 96 03/12/18 08:20 03/12/18 08:20 03/12/18 08:20 03/12/18 09:45 03/12/18 08:20 - Medications Medications: Current Medications Acetaminophen (Tylenol 325mg Tab) 650 mg PO Q6 PRN PRN Reason: Pain, moderate (4-7) Last Admin: 03/12/18 00:11 Dose: 650 mg Albuterol/Ipratropium (Duoneb 3 Mg/0.5 Mg (3 Ml) Ud) 3 ml INH RQ6 [facility] Last Admin: 03/12/18 19:51 Dose: 3 ml Enoxaparin Sodium (Lovenox) 40 mg SC DAILY [facility] Last Admin: 03/12/18 09:45 Dose: 40 mg Furosemide (Lasix) 40 mg IVP DAILY [facility] Last Admin: 03/12/18 09:45 Dose: 40 mg Ceftriaxone Sodium 1 gm/ (Sodium Chloride) 100 mls @ 100 mls/hr IVPB Q12H [facility] PRN Reason: Protocol Last Admin: 03/12/18 09:44 Dose: 100 mls/hr Pantoprazole Sodium (Protonix Ec Tab) 40 mg PO DAILY [facility] Last Admin: 03/12/18 09:45 Dose: 40 mg Fluticasone/Salmeterol (Advair Diskus 250/50) 1 puff INH RQ12 [facility] Last Admin: 03/12/18 19:51 Dose: 1 puff - Labs Labs: 03/12/18 11:29 03/12/18 11:29 PT 13.1 SECONDS (9.7-12.2) H 03/07/18 19:41 INR 1.2 03/07/18 19:41 APTT 32 SECONDS (21-34) 03/07/18 19:41 - Constitutional Appears: Well - Head Exam Head Exam: ATRAUMATIC, NORMAL INSPECTION, NORMOCEPHALIC - Eye Exam Eye Exam: EOMI, Normal appearance, PERRL Pupil Exam: NORMAL ACCOMODATION, PERRL - ENT Exam ENT Exam: Mucous Membranes Moist, Normal Exam - Neck Exam Neck Exam: Full ROM, Normal Inspection. absent: Lymphadenopathy - Respiratory Exam Respiratory Exam: Decreased Breath Sounds - Cardiovascular Exam Cardiovascular Exam: REGULAR RHYTHM, +S1, +S2 - GI/Abdominal Exam GI & Abdominal Exam: Soft, Diminished Bowel Sounds - Rectal Exam Rectal Exam: Deferred Assessment and Plan (1) Dyspnea Status: Acute (2) Hypokalemia Status: Acute (3) Morbid obesity Status: Acute (4) VAMHSI (obstructive sleep apnea) Status: Acute (5) Obesity hypoventilation syndrome Status: Acute (6) Pleural effusion Status: Acute (7) Abdominal pain Status: Acute (8) Abscess Status: Acute (9) Bronchitis Status: Acute (10) Bronchospasm Status: Acute (11) Chronic venous stasis dermatitis Status: Acute (12) Cough Status: Acute (13) Dressing change or removal, surgical wound Status: Acute (14) Influenza-like illness Status: Acute (15) Left upper quadrant abdominal swelling Status: Acute (16) Leg edema Status: Acute (17) Leg swelling Status: Acute (18) Medical assessment Status: Acute (19) Pedal edema Status: Acute (20) Pneumonia Status: Acute (21) Pulmonary hypertension Status: Acute (22) Reactive airway disease Status: Acute (23) Rhabdomyolysis Status: Acute (24) Tinea pedis Status: Acute (25) Toothache Status: Acute (26) Upper respiratory infection Status: Acute (27) Uvulitis Status: Acute
[2018-03-13] MEDS: Albuterol-Ipratrop 3 mg / 0.5 (3 ml) UD INH SCH ×2 (01:30→08:02)
[2018-03-13 07:42] LABS: BASO # 0.1 K/uL (0.0-0.2); BASO % 0.9 % (0.0-2.0); EOS # 0.2 K/uL (0.0-0.7); HEMOGLOBIN 13.2 g/dL (12.0-18.0); LYMPH # 1.6 K/uL (1.0-4.3); MEAN CELL VOLUME 79.1 fL (80.0-94.0); MEAN CORPUSCULAR HEMOGLOBIN 26.7 pg (27.0-31.0); MEAN CORPUSCULAR HGB CONC 33.8 g/dL (33.0-37.0); MEAN PLATELET VOLUME 8.3 fL (7.2-11.7); MONO # 0.6 K/uL (0.0-0.8); MONO % 7.6 % (0.0-10.0); NEUT # 5.8 K/uL (1.8-7.0); NEUT % 70.5 % (50.0-75.0); RBC 4.92 Mil/uL (4.40-5.90); RED CELL DISTRIBUTION WIDTH 17.3 % (11.5-14.5); WHITE BLOOD COUNT 8.2 K/uL (4.8-10.8)
[2018-03-13 07:49] LABS: ALB/GLOB RATIO 1.2 (1.0-2.1); ALBUMIN 3.7 g/dL (3.5-5.0); ALT/SGPT 37 U/L (21-72); AST/SGOT 31 U/L (17-59); BLOOD UREA NITROGEN 12 mg/dL (9-20); CALCIUM 8.3 mg/dl (8.6-10.4); GFR AFRICAN-AMERICAN > 60; GFR NON-AFRICAN AMERICAN > 60
--- NOTE | 2018-03-13 07:51 | CP.PCM.PN ---
Subjective - Date & Time of Evaluation Date of Evaluation: 03/13/18 Time of Evaluation: 07:00 - Subjective Subjective: PGY 3 Medicine Progress Note- Dr. Mauri Todd's service Patient seen and examined at bedside, resting comfortably in no acute distress. Patient states that his breathing is improved. He is tolerating his diet and reports last normal BM yesterday. 12-point review of systems is otherwise negative without any additional acute complaints. Objective - Vital Signs/Intake and Output Vital Signs (last 24 hours): Temp Pulse Resp BP Pulse Ox 98.1 F 105 H 20 127/77 97 03/12/18 23:30 03/12/18 23:30 03/12/18 23:30 03/12/18 23:30 03/12/18 23:30 Intake and Output: 03/13/18 03/13/18 06:59 18:59 Intake Total 500 Output Total 1 Balance 499 - Medications Medications: Current Medications Acetaminophen (Tylenol 325mg Tab) 650 mg PO Q6 PRN PRN Reason: Pain, moderate (4-7) Last Admin: 03/12/18 00:11 Dose: 650 mg Albuterol/Ipratropium (Duoneb 3 Mg/0.5 Mg (3 Ml) Ud) 3 ml INH RQ6 [facility] Last Admin: 03/13/18 01:30 Dose: Not Given Enoxaparin Sodium (Lovenox) 40 mg SC DAILY [facility] Last Admin: 03/12/18 09:45 Dose: 40 mg Furosemide (Lasix) 40 mg IVP DAILY [facility] Last Admin: 03/12/18 09:45 Dose: 40 mg Ceftriaxone Sodium 1 gm/ (Sodium Chloride) 100 mls @ 100 mls/hr IVPB Q12H [facility] PRN Reason: Protocol Last Admin: 03/12/18 21:41 Dose: 100 mls/hr Pantoprazole Sodium (Protonix Ec Tab) 40 mg PO DAILY [facility] Last Admin: 03/12/18 09:45 Dose: 40 mg Fluticasone/Salmeterol (Advair Diskus 250/50) 1 puff INH RQ12 [facility] Last Admin: 03/12/18 19:51 Dose: 1 puff - Labs Labs: 03/13/18 07:11 03/12/18 11:29 PT 13.1 SECONDS (9.7-12.2) H 03/07/18 19:41 INR 1.2 03/07/18 19:41 APTT 32 SECONDS (21-34) 03/07/18 19:41 - Additional Findings Additional findings: - Constitutional Appears: Non-toxic, No Acute Distress, Other (large body habitus) - Head Exam Head Exam: ATRAUMATIC, NORMAL INSPECTION - Eye Exam Eye Exam: EOMI, Normal appearance, PERRL Pupil Exam: NORMAL ACCOMODATION - ENT Exam ENT Exam: Mucous Membranes Moist - Neck Exam Neck Exam: Full ROM - Respiratory Exam Respiratory Exam: NORMAL BREATHING PATTERN. absent: Wheezes - Cardiovascular Exam Cardiovascular Exam: Regular Rate, +S1, +S2 - Neurological Exam Neurological Exam: Alert, Awake, Oriented x3 - Psychiatric Exam Psychiatric exam: Normal Affect, Normal Mood - Skin Skin Exam: Normal Color, Warm Assessment and Plan - Assessment and Plan (Free Text) Assessment: (1) Dyspnea Assessment & Plan: Chest CT on admission confirmed discoid atelectasis or scar with small pleural effusion Patient is afebrile. On Ceftriaxone Continue donaldo Montilla, pulmonary hygiene Status: Acute (2) VAMSHI (obstructive sleep apnea) Assessment & Plan: 03/13: f/u echo to eval LVEF / LVH Patient will need an outpatient workup Status: Acute (3) Hypokalemia Assessment & Plan: Repleted. F/U BMP Cont to monitor Status: Acute (4) Tobacco use disorder Assessment & Plan: Counseling cessation Status: Acute (5) Morbid obesity Assessment & Plan: Diet and exercise counseling Likely contributing to suspected apneic night events PT eval warranted due to gait dysfunction Status: Acute (6) Prophylactic measure Assessment & Plan: Lovenox SC daily PPI daily Status: Acute Disposition: Awaiting insurance authorization
[2018-03-13] MEDS: Fluticasone-Salmeterol 250-50mcg Diskus INH SCH ×2 (08:02→19:31)
[2018-03-13] MEDS: Pantoprazole 40 mg EC Tab PO SCH (09:39)
[2018-03-13] MEDS: Enoxaparin 40 mg Syringe SC SCH (09:39)
--- NOTE | 2018-03-13 12:52 | CP.PCM.PN ---
Subjective - Date & Time of Evaluation Date of Evaluation: 03/13/18 Time of Evaluation: 12:00 - Subjective Subjective: clinically same Objective - Vital Signs/Intake and Output Vital Signs (last 24 hours): Temp Pulse Resp BP Pulse Ox 98.4 F 86 20 142/83 96 03/13/18 08:31 03/13/18 08:31 03/13/18 08:31 03/13/18 09:39 03/13/18 08:31 Intake and Output: 03/13/18 03/13/18 06:59 18:59 Intake Total 500 Output Total 1 Balance 499 - Medications Medications: Current Medications Acetaminophen (Tylenol 325mg Tab) 650 mg PO Q6 PRN PRN Reason: Pain, moderate (4-7) Last Admin: 03/12/18 00:11 Dose: 650 mg Enoxaparin Sodium (Lovenox) 40 mg SC DAILY [facility] Last Admin: 03/13/18 09:39 Dose: 40 mg Furosemide (Lasix) 40 mg IVP DAILY [facility] Last Admin: 03/13/18 09:39 Dose: 40 mg Ceftriaxone Sodium 1 gm/ (Sodium Chloride) 100 mls @ 100 mls/hr IVPB Q12H [facility] PRN Reason: Protocol Last Admin: 03/13/18 09:39 Dose: 100 mls/hr Pantoprazole Sodium (Protonix Ec Tab) 40 mg PO DAILY [facility] Last Admin: 03/13/18 09:39 Dose: 40 mg Fluticasone/Salmeterol (Advair Diskus 250/50) 1 puff INH RQ12 [facility] Last Admin: 03/13/18 08:02 Dose: Not Given - Labs Labs: 03/13/18 07:11 03/13/18 07:11 PT 13.1 SECONDS (9.7-12.2) H 03/07/18 19:41 INR 1.2 03/07/18 19:41 APTT 32 SECONDS (21-34) 03/07/18 19:41 - Constitutional Appears: Well - Head Exam Head Exam: ATRAUMATIC, NORMAL INSPECTION, NORMOCEPHALIC - Eye Exam Eye Exam: EOMI, Normal appearance, PERRL Pupil Exam: NORMAL ACCOMODATION, PERRL - ENT Exam ENT Exam: Mucous Membranes Moist, Normal Exam - Neck Exam Neck Exam: Full ROM, Normal Inspection. absent: Lymphadenopathy - Respiratory Exam Respiratory Exam: Decreased Breath Sounds - Cardiovascular Exam Cardiovascular Exam: REGULAR RHYTHM, +S1, +S2 - GI/Abdominal Exam GI & Abdominal Exam: Soft, Diminished Bowel Sounds - Rectal Exam Rectal Exam: Deferred Assessment and Plan (1) Dyspnea Status: Acute (2) Hypokalemia Status: Acute (3) Morbid obesity Status: Acute (4) VAMSHI (obstructive sleep apnea) Status: Acute (5) Obesity hypoventilation syndrome Status: Acute (6) Pleural effusion Status: Acute (7) Abdominal pain Status: Acute (8) Abscess Status: Acute (9) Bronchitis Status: Acute (10) Bronchospasm Status: Acute (11) Chronic venous stasis dermatitis Status: Acute (12) Cough Status: Acute (13) Dressing change or removal, surgical wound Status: Acute (14) Influenza-like illness Status: Acute (15) Left upper quadrant abdominal swelling Status: Acute (16) Leg edema Status: Acute (17) Leg swelling Status: Acute (18) Medical assessment Status: Acute (19) Pedal edema Status: Acute (20) Pneumonia Status: Acute (21) Pulmonary hypertension Status: Acute (22) Reactive airway disease Status: Acute (23) Rhabdomyolysis Status: Acute (24) Tinea pedis Status: Acute (25) Toothache Status: Acute (26) Upper respiratory infection Status: Acute (27) Uvulitis Status: Acute
--- NOTE | 2018-03-13 14:05 | CP.PCM.PN ---
Subjective - Date & Time of Evaluation Date of Evaluation: 03/13/18 Time of Evaluation: 14:05 - Subjective Subjective: Patient seen and examined No events overnight Objective - Vital Signs/Intake and Output Vital Signs (last 24 hours): Temp Pulse Resp BP Pulse Ox 98.4 F 86 20 142/83 96 03/13/18 08:31 03/13/18 08:31 03/13/18 08:31 03/13/18 09:39 03/13/18 08:31 Intake and Output: 03/13/18 03/13/18 06:59 18:59 Intake Total 500 Output Total 1 Balance 499 - Medications Medications: Current Medications Acetaminophen (Tylenol 325mg Tab) 650 mg PO Q6 PRN PRN Reason: Pain, moderate (4-7) Last Admin: 03/12/18 00:11 Dose: 650 mg Enoxaparin Sodium (Lovenox) 40 mg SC DAILY [facility] Last Admin: 03/13/18 09:39 Dose: 40 mg Furosemide (Lasix) 40 mg IVP DAILY [facility] Last Admin: 03/13/18 09:39 Dose: 40 mg Ceftriaxone Sodium 1 gm/ (Sodium Chloride) 100 mls @ 100 mls/hr IVPB Q12H [facility] PRN Reason: Protocol Last Admin: 03/13/18 09:39 Dose: 100 mls/hr Pantoprazole Sodium (Protonix Ec Tab) 40 mg PO DAILY [facility] Last Admin: 03/13/18 09:39 Dose: 40 mg Fluticasone/Salmeterol (Advair Diskus 250/50) 1 puff INH RQ12 [facility] Last Admin: 03/13/18 08:02 Dose: Not Given - Labs Labs: 03/13/18 07:11 03/13/18 07:11 PT 13.1 SECONDS (9.7-12.2) H 03/07/18 19:41 INR 1.2 03/07/18 19:41 APTT 32 SECONDS (21-34) 03/07/18 19:41 - Head Exam Head Exam: NORMAL INSPECTION - Eye Exam Eye Exam: Normal appearance - ENT Exam ENT Exam: Mucous Membranes Moist - Respiratory Exam Respiratory Exam: Decreased Breath Sounds, Prolonged Expiratory Phase - Cardiovascular Exam Cardiovascular Exam: REGULAR RHYTHM - GI/Abdominal Exam GI & Abdominal Exam: Soft - Neurological Exam Neurological Exam: Alert, Oriented x3 Assessment and Plan (1) VAMSHI (obstructive sleep apnea) Status: Acute (2) Obesity hypoventilation syndrome Status: Acute (3) Dyspnea Status: Acute (4) Morbid obesity Status: Acute (5) Pleural effusion Status: Acute (6) Pulmonary hypertension Status: Acute - Assessment and Plan (Free Text) Plan: Continue antibiotics Bronchodilators Advair Lasix Physiotherapy DVT/GI prophylaxis
[2018-03-13] MEDS ORDERED: Potassium Chloride 20 mEq ER Tab PO ONE (15:15)
--- NOTE | 2018-03-13 23:27 | CP.PCM.PN ---
Subjective - Date & Time of Evaluation Date of Evaluation: 03/13/18 Time of Evaluation: 23:27 - Subjective Subjective: CHIEF COMPLAINTS TODAY : AFEBRILE, NO NEW COMPLAINTS OOB ON CARDIAC CHAIR. ROS. HEENT : N. Resp : No cough, wheezing ,pleuritic CP ,or hemoptysis Cardio : No anginal CP, PND, orthopnea, palpitation GI : No abd.pain, n/v ,diarrhea or GI bleeding . [employer]LECT[employer] IN[employer] WORK[employer] : No headache, vertigo, focal deficit. Musculoskel : No joint swelling , Derm : No rash Psych : Normal affect. Ext : No swelling ,calf pain PE. Pt. is alert awake in no distress. V.S As noted in the chart Head ,ear nose,throat and eyes : Normal. Neck : Supple with normal carotids. Lungs: FAIR AIR ENTRY Heart : S1 & S2 normal with S4. No murmur. Abd : Soft non tender with normal bowel sounds. Neuro : Moves all ext. with no localized deficit. Ext : +VE EDEMA LE with intact pulses.Non tender calves Derm : No rashes or decubitus ulcer. LABS/RADIOLOGY: WBC IMPROVING RENAL FUNCTION STABLE LFTS N Objective - Vital Signs/Intake and Output Vital Signs (last 24 hours): Temp Pulse Resp BP Pulse Ox 97.7 F 91 H 20 113/70 96 03/13/18 15:11 03/13/18 15:11 03/13/18 15:11 03/13/18 15:11 03/13/18 15:11 - Medications Medications: Current Medications Acetaminophen (Tylenol 325mg Tab) 650 mg PO Q6 PRN PRN Reason: Pain, moderate (4-7) Last Admin: 03/12/18 00:11 Dose: 650 mg Enoxaparin Sodium (Lovenox) 40 mg SC DAILY [facility] Last Admin: 03/13/18 09:39 Dose: 40 mg Furosemide (Lasix) 40 mg IVP DAILY [facility] Last Admin: 03/13/18 09:39 Dose: 40 mg Ceftriaxone Sodium 1 gm/ (Sodium Chloride) 100 mls @ 100 mls/hr IVPB Q12H [facility] PRN Reason: Protocol Last Admin: 03/13/18 21:56 Dose: 100 mls/hr Pantoprazole Sodium (Protonix Ec Tab) 40 mg PO DAILY [facility] Last Admin: 03/13/18 09:39 Dose: 40 mg Fluticasone/Salmeterol (Advair Diskus 250/50) 1 puff INH RQ12 [facility] Last Admin: 03/13/18 19:31 Dose: 1 puff - Labs Labs: 03/13/18 07:11 03/13/18 07:11 PT 13.1 SECONDS (9.7-12.2) H 03/07/18 19:41 INR 1.2 03/07/18 19:41 APTT 32 SECONDS (21-34) 03/07/18 19:41 Assessment and Plan (1) Dyspnea Assessment & Plan: CONTINUE IV ABX . ON iv ROCEPHIN 1gm ivpb [id number] 03/08/18 X TOTAL OF 10DAYS PULMONARY TOILET. BRONCHODILATORS . 2D ECHO TO EVALUATE LVEF /LVH -P Status: Acute (2) Obesity hypoventilation syndrome Status: Acute (3) Hypokalemia Status: Acute (4) Morbid obesity Status: Acute (5) VAMSHI (obstructive sleep apnea) Assessment & Plan: VAMSHI W/U PER PULMONARY . Status: Acute
[2018-03-14] MEDS: Fluticasone-Salmeterol 250-50mcg Diskus INH SCH ×2 (07:29→19:48)
--- NOTE | 2018-03-14 07:53 | CP.PCM.PN ---
Subjective - Date & Time of Evaluation Date of Evaluation: 03/14/18 Time of Evaluation: 07:00 - Subjective Subjective: PGY 3 Medicine Progress Note- Dr. Mauri Todd's service Patient seen and examined at bedside, resting comfortably in no acute distress. He is breathing well and reports feeling better overall. Reports normal BM and urination today. 12-point review of systems is otherwise negative without any additional acute complaints. Objective - Vital Signs/Intake and Output Vital Signs (last 24 hours): Temp Pulse Resp BP Pulse Ox 97.7 F 89 20 136/94 H 98 03/13/18 23:15 03/13/18 23:15 03/13/18 23:15 03/13/18 23:15 03/13/18 23:15 Intake and Output: 03/14/18 03/14/18 06:59 18:59 Intake Total 500 Balance 500 - Medications Medications: Current Medications Acetaminophen (Tylenol 325mg Tab) 650 mg PO Q6 PRN PRN Reason: Pain, moderate (4-7) Last Admin: 03/12/18 00:11 Dose: 650 mg Enoxaparin Sodium (Lovenox) 40 mg SC DAILY [facility] Last Admin: 03/13/18 09:39 Dose: 40 mg Furosemide (Lasix) 40 mg IVP DAILY [facility] Last Admin: 03/13/18 09:39 Dose: 40 mg Ceftriaxone Sodium 1 gm/ (Sodium Chloride) 100 mls @ 100 mls/hr IVPB Q12H [facility] PRN Reason: Protocol Last Admin: 03/13/18 21:56 Dose: 100 mls/hr Pantoprazole Sodium (Protonix Ec Tab) 40 mg PO DAILY [facility] Last Admin: 03/13/18 09:39 Dose: 40 mg Fluticasone/Salmeterol (Advair Diskus 250/50) 1 puff INH RQ12 [facility] Last Admin: 03/14/18 07:29 Dose: Not Given - Labs Labs: 03/13/18 07:11 03/13/18 07:11 PT 13.1 SECONDS (9.7-12.2) H 03/07/18 19:41 INR 1.2 03/07/18 19:41 APTT 32 SECONDS (21-34) 03/07/18 19:41 - Additional Findings Additional findings: - Constitutional Appears: Non-toxic, No Acute Distress, Other (large body habitus) - Head Exam Head Exam: ATRAUMATIC, NORMAL INSPECTION - Eye Exam Eye Exam: EOMI, Normal appearance, PERRL Pupil Exam: NORMAL ACCOMODATION - ENT Exam ENT Exam: Mucous Membranes Moist - Neck Exam Neck Exam: Full ROM - Respiratory Exam Respiratory Exam: NORMAL BREATHING PATTERN. absent: Wheezes - Cardiovascular Exam Cardiovascular Exam: Regular Rate, +S1, +S2 - Neurological Exam Neurological Exam: Alert, Awake, Oriented x3 - Psychiatric Exam Psychiatric exam: Normal Affect, Normal Mood - Skin Skin Exam: Normal Color, Warm Assessment and Plan - Assessment and Plan (Free Text) Assessment: (1) Dyspnea Assessment & Plan: 03/14: pt reports feeling well today. Chest CT on admission confirmed discoid atelectasis or scar with small pleural effusion Patient is afebrile. On Ceftriaxone Continue donaldo Montilla, pulmonary hygiene Status: Acute (2) VAMSHI (obstructive sleep apnea) Assessment & Plan: 03/14: prior echo 10/26/17- EF 55-60%; Hypertensive heart dz; mild tricuspid regurg , borderline pulmonary HTN, no pulm regurg. see full report. no need to repeat echo. Pts body habitus diminishes echo sensitivity. Patient will need an outpatient workup Status: Acute (3) Hypokalemia Assessment & Plan: Repleted. F/U BMP Cont to monitor Status: Acute (4) Tobacco use disorder Assessment & Plan: Counseling cessation Status: Acute (5) Morbid obesity Assessment & Plan: Diet and exercise counseling Likely contributing to suspected apneic night events PT eval warranted due to gait dysfunction Status: Acute (6) Prophylactic measure Assessment & Plan: Lovenox SC daily PPI daily Status: Acute Disposition: Awaiting insurance authorization for [facility] placement. All management as per Dr. Leonides Todd
[2018-03-14 08:39] LABS: BASO # 0.1 K/uL (0.0-0.2); BASO % 0.9 % (0.0-2.0); EOS # 0.2 K/uL (0.0-0.7); EOS % 2.5 % (0.0-4.0); HEMOGLOBIN 13.6 g/dL (12.0-18.0); LYMPH # 1.7 K/uL (1.0-4.3); MEAN CELL VOLUME 79.7 fL (80.0-94.0); MEAN CORPUSCULAR HEMOGLOBIN 26.6 pg (27.0-31.0); MEAN CORPUSCULAR HGB CONC 33.4 g/dL (33.0-37.0); MEAN PLATELET VOLUME 8.1 fL (7.2-11.7); MONO # 0.5 K/uL (0.0-0.8); MONO % 6.4 % (0.0-10.0); NEUT % 67.2 % (50.0-75.0); RBC 5.11 Mil/uL (4.40-5.90); RED CELL DISTRIBUTION WIDTH 17.2 % (11.5-14.5); WHITE BLOOD COUNT 7.5 K/uL (4.8-10.8)
[2018-03-14 09:05] LABS: ALB/GLOB RATIO 1.2 (1.0-2.1); ALBUMIN 3.9 g/dL (3.5-5.0); ALT/SGPT 35 U/L (21-72); AST/SGOT 35 U/L (17-59); BLOOD UREA NITROGEN 15 mg/dL (9-20); CALCIUM 8.6 mg/dl (8.6-10.4); GFR AFRICAN-AMERICAN > 60; GFR NON-AFRICAN AMERICAN > 60
[2018-03-14] MEDS: Enoxaparin 40 mg Syringe SC SCH (09:39)
[2018-03-14] MEDS: Pantoprazole 40 mg EC Tab PO SCH (09:39)
--- NOTE | 2018-03-14 16:29 | CP.PCM.PN ---
Subjective - Date & Time of Evaluation Date of Evaluation: 03/14/18 Time of Evaluation: 16:29 - Subjective Subjective: Patient seen and examined No events overnight Reports improved dyspnea Objective - Vital Signs/Intake and Output Vital Signs (last 24 hours): Temp Pulse Resp BP Pulse Ox 97.5 F L 90 20 126/79 97 03/14/18 15:09 03/14/18 15:09 03/14/18 15:09 03/14/18 15:09 03/14/18 15:09 Intake and Output: 03/14/18 03/14/18 06:59 18:59 Intake Total 500 Balance 500 - Medications Medications: Current Medications Acetaminophen (Tylenol 325mg Tab) 650 mg PO Q6 PRN PRN Reason: Pain, moderate (4-7) Last Admin: 03/12/18 00:11 Dose: 650 mg Enoxaparin Sodium (Lovenox) 40 mg SC DAILY [facility] Last Admin: 03/14/18 09:39 Dose: 40 mg Furosemide (Lasix) 40 mg IVP DAILY [facility] Last Admin: 03/14/18 09:39 Dose: 40 mg Ceftriaxone Sodium 1 gm/ (Sodium Chloride) 100 mls @ 100 mls/hr IVPB Q12H [facility] PRN Reason: Protocol Last Admin: 03/14/18 08:39 Dose: 100 mls/hr Pantoprazole Sodium (Protonix Ec Tab) 40 mg PO DAILY [facility] Last Admin: 03/14/18 09:39 Dose: 40 mg Fluticasone/Salmeterol (Advair Diskus 250/50) 1 puff INH RQ12 [facility] Last Admin: 03/14/18 07:29 Dose: Not Given - Labs Labs: 03/14/18 08:25 03/14/18 08:25 PT 13.1 SECONDS (9.7-12.2) H 03/07/18 19:41 INR 1.2 03/07/18 19:41 APTT 32 SECONDS (21-34) 03/07/18 19:41 - Head Exam Head Exam: NORMAL INSPECTION - Eye Exam Eye Exam: Normal appearance - ENT Exam ENT Exam: Mucous Membranes Moist - Respiratory Exam Respiratory Exam: Decreased Breath Sounds - Cardiovascular Exam Cardiovascular Exam: REGULAR RHYTHM, +S1, +S2 - GI/Abdominal Exam GI & Abdominal Exam: Soft, Normal Bowel Sounds - Extremities Exam Extremities Exam: Pedal Edema - Neurological Exam Neurological Exam: Alert, Oriented x3 - Psychiatric Exam Psychiatric exam: Normal Affect, Normal Mood Assessment and Plan (1) VAMSHI (obstructive sleep apnea) Status: Acute (2) Obesity hypoventilation syndrome Status: Acute (3) Dyspnea Status: Acute (4) Morbid obesity Status: Acute (5) Pleural effusion Status: Acute (6) Pulmonary hypertension Status: Acute - Assessment and Plan (Free Text) Plan: Continue antibiotics Lasix Advair 250/50 micrograms 1 puff twice a day Bronchodilators PT/OT Out of bed to chair DVT/GI prophylaxis
--- NOTE | 2018-03-14 19:25 | CP.PCM.PN ---
Subjective - Date & Time of Evaluation Date of Evaluation: 03/14/18 Time of Evaluation: 12:00 - Subjective Subjective: clinically same Objective - Vital Signs/Intake and Output Vital Signs (last 24 hours): Temp Pulse Resp BP Pulse Ox 97.5 F L 90 20 126/79 97 03/14/18 15:09 03/14/18 15:09 03/14/18 15:09 03/14/18 15:09 03/14/18 15:09 - Medications Medications: Current Medications Acetaminophen (Tylenol 325mg Tab) 650 mg PO Q6 PRN PRN Reason: Pain, moderate (4-7) Last Admin: 03/12/18 00:11 Dose: 650 mg Enoxaparin Sodium (Lovenox) 40 mg SC DAILY [facility] Last Admin: 03/14/18 09:39 Dose: 40 mg Furosemide (Lasix) 40 mg IVP DAILY [facility] Last Admin: 03/14/18 09:39 Dose: 40 mg Ceftriaxone Sodium 1 gm/ (Sodium Chloride) 100 mls @ 100 mls/hr IVPB Q12H [facility] PRN Reason: Protocol Last Admin: 03/14/18 08:39 Dose: 100 mls/hr Pantoprazole Sodium (Protonix Ec Tab) 40 mg PO DAILY [facility] Last Admin: 03/14/18 09:39 Dose: 40 mg Fluticasone/Salmeterol (Advair Diskus 250/50) 1 puff INH RQ12 [facility] Last Admin: 03/14/18 07:29 Dose: Not Given - Labs Labs: 03/14/18 08:25 03/14/18 08:25 PT 13.1 SECONDS (9.7-12.2) H 03/07/18 19:41 INR 1.2 03/07/18 19:41 APTT 32 SECONDS (21-34) 03/07/18 19:41 - Constitutional Appears: Well - Head Exam Head Exam: ATRAUMATIC, NORMAL INSPECTION, NORMOCEPHALIC - Eye Exam Eye Exam: EOMI, Normal appearance, PERRL Pupil Exam: NORMAL ACCOMODATION, PERRL - ENT Exam ENT Exam: Mucous Membranes Moist, Normal Exam - Neck Exam Neck Exam: Full ROM, Normal Inspection. absent: Lymphadenopathy - Respiratory Exam Respiratory Exam: Decreased Breath Sounds - Cardiovascular Exam Cardiovascular Exam: REGULAR RHYTHM, +S1, +S2 - GI/Abdominal Exam GI & Abdominal Exam: Soft, Diminished Bowel Sounds - Rectal Exam Rectal Exam: Deferred Assessment and Plan (1) Dyspnea Status: Acute (2) Hypokalemia Status: Acute (3) Morbid obesity Status: Acute (4) VAMSHI (obstructive sleep apnea) Status: Acute (5) Obesity hypoventilation syndrome Status: Acute (6) Pleural effusion Status: Acute (7) Abdominal pain Status: Acute (8) Abscess Status: Acute (9) Bronchitis Status: Acute (10) Bronchospasm Status: Acute (11) Chronic venous stasis dermatitis Status: Acute (12) Cough Status: Acute (13) Dressing change or removal, surgical wound Status: Acute (14) Influenza-like illness Status: Acute (15) Left upper quadrant abdominal swelling Status: Acute (16) Leg edema Status: Acute (17) Leg swelling Status: Acute (18) Medical assessment Status: Acute (19) Pedal edema Status: Acute (20) Pneumonia Status: Acute (21) Pulmonary hypertension Status: Acute (22) Reactive airway disease Status: Acute (23) Rhabdomyolysis Status: Acute (24) Tinea pedis Status: Acute (25) Toothache Status: Acute (26) Upper respiratory infection Status: Acute (27) Uvulitis Status: Acute
[2018-03-15 07:21] LABS: BASO # 0.1 K/uL (0.0-0.2); BASO % 0.9 % (0.0-2.0); EOS # 0.1 K/uL (0.0-0.7); EOS % 1.6 % (0.0-4.0); HEMOGLOBIN 13.1 g/dL (12.0-18.0); LYMPH # 1.8 K/uL (1.0-4.3); MEAN CELL VOLUME 79.5 fL (80.0-94.0); MEAN CORPUSCULAR HEMOGLOBIN 26.7 pg (27.0-31.0); MEAN CORPUSCULAR HGB CONC 33.6 g/dL (33.0-37.0); MONO # 0.7 K/uL (0.0-0.8); MONO % 8.5 % (0.0-10.0); NEUT # 5.4 K/uL (1.8-7.0); NRBC % 0.1 % (0.0-2.0); RBC 4.92 Mil/uL (4.40-5.90); RED CELL DISTRIBUTION WIDTH 17.1 % (11.5-14.5); WHITE BLOOD COUNT 8.1 K/uL (4.8-10.8)
[2018-03-15 07:40] LABS: ALB/GLOB RATIO 1.2 (1.0-2.1); ALBUMIN 3.9 g/dL (3.5-5.0); ALT/SGPT 33 U/L (21-72); AST/SGOT 28 U/L (17-59); BLOOD UREA NITROGEN 14 mg/dL (9-20); CALCIUM 8.5 mg/dl (8.6-10.4); GFR AFRICAN-AMERICAN > 60; GFR NON-AFRICAN AMERICAN > 60
[2018-03-15] MEDS: Fluticasone-Salmeterol 250-50mcg Diskus INH SCH ×2 (07:51→19:29)
--- NOTE | 2018-03-15 08:08 | CP.PCM.PN ---
Subjective - Date & Time of Evaluation Date of Evaluation: 03/15/18 Time of Evaluation: 08:08 - Subjective Subjective: Medicine progress note for Dr. Todd's service Patient seen and examined. Patient states he feels well. Patient comfortable in cardiac chair. Patient pending DORYS. Objective - Vital Signs/Intake and Output Vital Signs (last 24 hours): Temp Pulse Resp BP Pulse Ox 98 F 98 H 20 121/70 98 03/14/18 23:10 03/14/18 23:10 03/14/18 23:10 03/14/18 23:10 03/14/18 23:10 Intake and Output: 03/15/18 03/15/18 06:59 18:59 Intake Total 650 Output Total 400 Balance 250 - Medications Medications: Current Medications Acetaminophen (Tylenol 325mg Tab) 650 mg PO Q6 PRN PRN Reason: Pain, moderate (4-7) Last Admin: 03/12/18 00:11 Dose: 650 mg Enoxaparin Sodium (Lovenox) 40 mg SC DAILY [facility] Last Admin: 03/14/18 09:39 Dose: 40 mg Furosemide (Lasix) 40 mg IVP DAILY [facility] Last Admin: 03/14/18 09:39 Dose: 40 mg Ceftriaxone Sodium 1 gm/ (Sodium Chloride) 100 mls @ 100 mls/hr IVPB Q12H [facility] PRN Reason: Protocol Last Admin: 03/14/18 21:15 Dose: 100 mls/hr Pantoprazole Sodium (Protonix Ec Tab) 40 mg PO DAILY [facility] Last Admin: 03/14/18 09:39 Dose: 40 mg Fluticasone/Salmeterol (Advair Diskus 250/50) 1 puff INH RQ12 [facility] Last Admin: 03/15/18 07:51 Dose: 1 puff - Labs Labs: 03/15/18 07:09 03/15/18 07:09 PT 13.1 SECONDS (9.7-12.2) H 03/07/18 19:41 INR 1.2 03/07/18 19:41 APTT 32 SECONDS (21-34) 03/07/18 19:41 - Constitutional Appears: No Acute Distress, Other (morbidly obese) - Head Exam Head Exam: ATRAUMATIC - Eye Exam Eye Exam: EOMI - ENT Exam ENT Exam: Mucous Membranes Moist - Respiratory Exam Respiratory Exam: Decreased Breath Sounds (poor inspiratory effort) - Cardiovascular Exam Cardiovascular Exam: +S1, +S2 - GI/Abdominal Exam GI & Abdominal Exam: Soft, Normal Bowel Sounds - Extremities Exam Extremities Exam: Normal Inspection. absent: Pedal Edema - Neurological Exam Neurological Exam: Alert, Awake - Psychiatric Exam Psychiatric exam: Normal Affect - Skin Skin Exam: Warm Assessment and Plan - Assessment and Plan (Free Text) Assessment: (1) Obesity Hypoventilation Syndrome Assessment & Plan: 03/15: pt reports feeling well today. Chest CT on admission confirmed discoid atelectasis or scar with small pleural effusion lasix 40mg IV daily Patient is afebrile. On Ceftriaxone (03/09-03/15) Continue Duonebs, advair, pulmonary hygiene Status: Acute (2) VAMSHI (obstructive sleep apnea) Assessment & Plan: 03/14: prior echo 10/26/17- EF 55-60%; Hypertensive heart dz; mild tricuspid regurg , borderline pulmonary HTN, no pulm regurg. see full report. no need to repeat echo. Pts body habitus diminishes echo sensitivity. Patient will need an outpatient workup Status: Acute (3) Hypokalemia Assessment & Plan: normalized today Status: Acute (4) Tobacco use disorder Assessment & Plan: Counseling cessation Status: Acute (5) Morbid obesity Assessment & Plan: Diet and exercise counseling Likely contributing to suspected apneic night events PT eval warranted due to gait dysfunction Status: Acute (6) Prophylactic measure Assessment & Plan: Lovenox SC daily PPI daily Status: Acute All management as per Dr. Leonides Todd
[2018-03-15] MEDS: Enoxaparin 40 mg Syringe SC SCH (09:13)
[2018-03-15] MEDS: Pantoprazole 40 mg EC Tab PO SCH (09:14)
[2018-03-15 09:28] VITALS: PULSE 90; O2SAT 97
[2018-03-15 16:39] VITALS: BP 138/90; TEMP 98.3
--- NOTE | 2018-03-15 18:40 | CP.PCM.PN ---
Subjective - Date & Time of Evaluation Date of Evaluation: 03/15/18 Time of Evaluation: 18:39 - Subjective Subjective: Patient seen and examined No events overnight Objective - Vital Signs/Intake and Output Vital Signs (last 24 hours): Temp Pulse Resp BP Pulse Ox 98.3 F 90 20 138/90 97 03/15/18 15:38 03/15/18 15:38 03/15/18 15:38 03/15/18 15:38 03/15/18 15:38 Intake and Output: 03/15/18 03/15/18 06:59 18:59 Intake Total 650 Output Total 400 Balance 250 - Medications Medications: Current Medications Acetaminophen (Tylenol 325mg Tab) 650 mg PO Q6 PRN PRN Reason: Pain, moderate (4-7) Last Admin: 03/12/18 00:11 Dose: 650 mg Furosemide (Lasix) 40 mg IVP DAILY [facility] Last Admin: 03/15/18 09:14 Dose: 40 mg Ceftriaxone Sodium 1 gm/ (Sodium Chloride) 100 mls @ 100 mls/hr IVPB Q12H [facility] PRN Reason: Protocol Last Admin: 03/15/18 09:14 Dose: 100 mls/hr Pantoprazole Sodium (Protonix Ec Tab) 40 mg PO DAILY [facility] Last Admin: 03/15/18 09:14 Dose: 40 mg Fluticasone/Salmeterol (Advair Diskus 250/50) 1 puff INH RQ12 [facility] Last Admin: 03/15/18 07:51 Dose: 1 puff - Labs Labs: 03/15/18 07:09 03/15/18 07:09 PT 13.1 SECONDS (9.7-12.2) H 03/07/18 19:41 INR 1.2 03/07/18 19:41 APTT 32 SECONDS (21-34) 03/07/18 19:41 - Head Exam Head Exam: NORMAL INSPECTION - Eye Exam Eye Exam: Normal appearance - ENT Exam ENT Exam: Mucous Membranes Moist - Respiratory Exam Respiratory Exam: Decreased Breath Sounds - Cardiovascular Exam Cardiovascular Exam: REGULAR RHYTHM, +S1, +S2 - GI/Abdominal Exam GI & Abdominal Exam: Soft, Normal Bowel Sounds - Neurological Exam Neurological Exam: Alert, Oriented x3 Assessment and Plan (1) VAMSHI (obstructive sleep apnea) Status: Acute (2) Obesity hypoventilation syndrome Status: Acute (3) Dyspnea Status: Acute (4) Morbid obesity Status: Acute (5) Pleural effusion Status: Acute (6) Pulmonary hypertension Status: Acute - Assessment and Plan (Free Text) Plan: Continue Advair Continue Lasix On ceftriaxone Bronchodilators Continue supportive care DVT/GI prophylaxis
--- NOTE | 2018-03-15 19:13 | CP.PCM.PN ---
Subjective - Date & Time of Evaluation Date of Evaluation: 03/15/18 Time of Evaluation: 10:40 - Subjective Subjective: clinically same Objective - Vital Signs/Intake and Output Vital Signs (last 24 hours): Temp Pulse Resp BP Pulse Ox 98.3 F 90 20 138/90 97 03/15/18 15:38 03/15/18 15:38 03/15/18 15:38 03/15/18 15:38 03/15/18 15:38 - Medications Medications: Current Medications Acetaminophen (Tylenol 325mg Tab) 650 mg PO Q6 PRN PRN Reason: Pain, moderate (4-7) Last Admin: 03/12/18 00:11 Dose: 650 mg Furosemide (Lasix) 40 mg IVP DAILY [facility] Last Admin: 03/15/18 09:14 Dose: 40 mg Ceftriaxone Sodium 1 gm/ (Sodium Chloride) 100 mls @ 100 mls/hr IVPB Q12H [facility] PRN Reason: Protocol Last Admin: 03/15/18 09:14 Dose: 100 mls/hr Pantoprazole Sodium (Protonix Ec Tab) 40 mg PO DAILY [facility] Last Admin: 03/15/18 09:14 Dose: 40 mg Fluticasone/Salmeterol (Advair Diskus 250/50) 1 puff INH RQ12 [facility] Last Admin: 03/15/18 07:51 Dose: 1 puff - Labs Labs: 03/15/18 07:09 03/15/18 07:09 PT 13.1 SECONDS (9.7-12.2) H 03/07/18 19:41 INR 1.2 03/07/18 19:41 APTT 32 SECONDS (21-34) 03/07/18 19:41 - Constitutional Appears: Well - Head Exam Head Exam: ATRAUMATIC, NORMAL INSPECTION, NORMOCEPHALIC - Eye Exam Eye Exam: EOMI, Normal appearance, PERRL Pupil Exam: NORMAL ACCOMODATION, PERRL - ENT Exam ENT Exam: Mucous Membranes Moist, Normal Exam - Neck Exam Neck Exam: Full ROM, Normal Inspection. absent: Lymphadenopathy - Respiratory Exam Respiratory Exam: Decreased Breath Sounds - Cardiovascular Exam Cardiovascular Exam: REGULAR RHYTHM, +S1, +S2 - GI/Abdominal Exam GI & Abdominal Exam: Soft, Diminished Bowel Sounds - Rectal Exam Rectal Exam: Deferred Assessment and Plan (1) Dyspnea Status: Acute (2) Hypokalemia Status: Acute (3) Morbid obesity Status: Acute (4) VAMSHI (obstructive sleep apnea) Status: Acute (5) Obesity hypoventilation syndrome Status: Acute (6) Pleural effusion Status: Acute (7) Abdominal pain Status: Acute (8) Abscess Status: Acute (9) Bronchitis Status: Acute (10) Bronchospasm Status: Acute (11) Chronic venous stasis dermatitis Status: Acute (12) Cough Status: Acute (13) Dressing change or removal, surgical wound Status: Acute (14) Influenza-like illness Status: Acute (15) Left upper quadrant abdominal swelling Status: Acute (16) Leg edema Status: Acute (17) Leg swelling Status: Acute (18) Medical assessment Status: Acute (19) Pedal edema Status: Acute (20) Pneumonia Status: Acute (21) Pulmonary hypertension Status: Acute (22) Reactive airway disease Status: Acute (23) Rhabdomyolysis Status: Acute (24) Tinea pedis Status: Acute (25) Toothache Status: Acute (26) Upper respiratory infection Status: Acute (27) Uvulitis Status: Acute
== END 2018-03-15 20:30 | DRG 541 ==
LOC: C.ER 18:34 → C.9E 22:22 → C.6T 23:29
PROVIDERS: ADMIT Internal Medicine Nephrology; ATTEND Internal Medicine Nephrology
DX: J44.0 Chronic obstructive pulmonary disease with (acute) lower respiratory infection (principal); M62.82 Rhabdomyolysis; J90 Pleural effusion, not elsewhere classified; J98.11 Atelectasis; K12.2 Cellulitis and abscess of mouth; E87.6 Hypokalemia; E66.2 Morbid (severe) obesity with alveolar hypoventilation; G47.33 Obstructive sleep apnea (adult) (pediatric); I10 Essential (primary) hypertension; I87.2 Venous insufficiency (chronic) (peripheral); I27.20 Pulmonary hypertension, unspecified; F17.200 Nicotine dependence, unspecified, uncomplicated; F12.90 Cannabis use, unspecified, uncomplicated; B35.3 Tinea pedis; Z68.44 Body mass index [BMI] 60.0-69.9, adult

== ENCOUNTER 2018-04-18 02:09 | Emergency (ER) | payer MEDICAID ==
[2018-04-18 02:09] VITALS: BMI 103.4
--- NOTE | 2018-04-18 03:31 | C.PDOC ---
History Of Present Illness 43 year old male with PMHx of arthritis presents to the ED c/o pressure to his left knee and right shoulder for the past few days. Patient states his left knee feels tight when walking and right shoulder when moving it. Patient has had similar pain in the past, did not taken pain medications at home. Patient denies fever, chills, CP, SOB, injury, fall, trauma, weakness, numbness. Time Seen by Provider: 04/18/18 02:25 Chief Complaint (Nursing): Lower Extremity Problem/Injury History Per: Patient History/Exam Limitations: no limitations Onset/Duration Of Symptoms: Days Current Symptoms Are (Timing): Still Present Additional History Per: Patient - Knee Description Of Injury: Other Currently Unable To: Bend Or Move Past Medical History Reviewed: Historical Data, Nursing Documentation, Vital Signs Vital Signs: Last Vital Signs Temp 97.9 F 04/18/18 03:56 Pulse 79 04/18/18 03:56 Resp 16 04/18/18 03:56 BP 130/80 04/18/18 03:56 Pulse Ox 98 04/18/18 03:56 - Medical History PMH: Bronchitis, Depression, HTN Surgical History: No Surg Hx - [facility] Procedures CHANGE PRESSURE DRESSING ON ABDOMINAL WALL (11/16/17) DRAINAGE OF ABDOMINAL WALL, OPEN APPROACH (11/16/17) DRAINAGE OF L PLEURAL CAV WITH DRAIN DEV, PERC APPROACH (11/16/17) DRAINAGE OF LEFT PLEURAL CAVITY, PERCUTANEOUS APPROACH (11/16/17) EXCISION OF ABD SUBCU/FASCIA, OPEN APPROACH (11/16/17) EXCISION OF ABDOMINAL WALL, OPEN APPROACH (11/16/17) EXCISION OF CHEST SUBCU/FASCIA, OPEN APPROACH (11/16/17) INSERTION OF INFUSION DEV INTO SUP VENA CAVA, PERC APPROACH (11/16/17) Family History: States: Unknown Family Hx - Social History Hx Tobacco Use: Yes (light smoker) Hx Alcohol Use: Yes Hx Substance Use: Yes (marijuana) - Immunization History Hx Tetanus Toxoid Vaccination: Yes Hx Influenza Vaccination: Yes Hx Pneumococcal Vaccination: Yes Review Of Systems Constitutional: Negative for: Fever, Chills Cardiovascular: Negative for: Chest Pain, Palpitations Respiratory: Negative for: Cough, Shortness of Breath Gastrointestinal: Negative for: Nausea, Vomiting Musculoskeletal: Positive for: Arm Pain, Leg Pain Skin: Negative for: Rash Neurological: Negative for: Weakness, Numbness Physical Exam - Physical Exam Appears: Non-toxic, No Acute Distress, Other (morbidly obese) Skin: Normal Color, Warm, Dry Head: Atraumatic, Normacephalic Eye(s): bilateral: Normal Inspection Oral Mucosa: Moist Neck: Normal ROM, Supple Chest: Symmetrical Cardiovascular: Rhythm Regular Respiratory: Normal Breath Sounds, No Rales, No Rhonchi, No Wheezing Gastrointestinal/Abdominal: Soft, No Tenderness, No Guarding, No Rebound Extremity: Normal ROM, No Tenderness, No Calf Tenderness, Capillary Refill (< 2 seconds), No Deformity, No Swelling, Other (no effusion on bilateral knees, no edema, no erythema, no warmth) Extremity: Bilateral: Atraumatic Pulses: Left Dorsalis Pedis: Normal, Right Dorsalis Pedis: Normal Neurological/Psych: Oriented x3, Normal Speech, Normal Motor, Normal Sensation Gait: With Assistance (cane) ED Course And Treatment O2 Sat by Pulse Oximetry: 97 (ON RA) Pulse Ox Interpretation: Normal Medical Decision Making Medical Decision Making: Plan: * Toradol 30 mg IM Patient is resting comfortably, and is in no acute distress. Patient was instructed to follow up with PMD in 1-2 days for further evaluation. Disposition - Disposition Disposition: HOME/ ROUTINE Disposition Time: 03:30 Condition: STABLE Additional Instructions: Tylenol for pain Leg elevation/ warm compress Rrturn to ER if worse Instructions: Knee Pain (DC) Forms: [facility] (Spanish) - Clinical Impression Clinical Impression: Arthralgia - PA / WHIP OPERATOR / Resident Statement MD/DO has reviewed & agrees with the documentation as recorded. - Scribe Statement The provider has reviewed the documentation as recorded by the Scribe Hugh Lucero All medical record entries made by the Scribe were at my direction and personally dictated by me. I have reviewed the chart and agree that the record accurately reflects my personal performance of the history, physical exam, medical decision making, and the department course for this patient. I have also personally directed, reviewed, and agree with the discharge instructions and disposition.
[2018-04-18 03:57] VITALS: BP 130/80; PULSE 79; RESP 16; TEMP 97.9
[2018-04-18 06:29] VITALS: O2SAT 97
== END 2018-04-18 03:57 | disposition home or self-care (01) ==
LOC: C.ER 02:09
DX: M25.562 Pain in left knee (principal); M25.511 Pain in right shoulder
CPT/HCPCS: 96372; 99284; J1885

== ENCOUNTER 2018-04-27 18:12 | Emergency (ER) | payer MEDICAID ==
[2018-04-27 18:37] VITALS: BMI 70.4
[2018-04-27 18:43] VITALS: RESP 20
--- NOTE | 2018-04-27 22:56 | C.PDOC ---
History Of Present Illness 43 year old male presents to the emergency department with complaints of bilateral leg swelling over the past several days. He reports that he recently ran out of his diuretic medication and has been off of it for "some time". He denies chest pain, shortness of breath, abdominal pain, nausea, and vomiting. Chief Complaint (Nursing): Lower Extremity Problem/Injury History Per: Patient History/Exam Limitations: no limitations Onset/Duration Of Symptoms: Days Current Symptoms Are (Timing): Still Present Past Medical History Reviewed: Historical Data, Nursing Documentation, Vital Signs Vital Signs: Last Vital Signs Temp 98 F 04/28/18 00:08 Pulse 79 04/28/18 00:08 Resp 20 04/28/18 00:08 BP 137/79 04/28/18 00:08 Pulse Ox 99 04/28/18 00:36 - Medical History PMH: Bronchitis, Depression, HTN, Pneumonia Surgical History: No Surg Hx - [facility] Procedures CHANGE PRESSURE DRESSING ON ABDOMINAL WALL (11/16/17) DRAINAGE OF ABDOMINAL WALL, OPEN APPROACH (11/16/17) DRAINAGE OF L PLEURAL CAV WITH DRAIN DEV, PERC APPROACH (11/16/17) DRAINAGE OF LEFT PLEURAL CAVITY, PERCUTANEOUS APPROACH (11/16/17) EXCISION OF ABD SUBCU/FASCIA, OPEN APPROACH (11/16/17) EXCISION OF ABDOMINAL WALL, OPEN APPROACH (11/16/17) EXCISION OF CHEST SUBCU/FASCIA, OPEN APPROACH (11/16/17) INSERTION OF INFUSION DEV INTO SUP VENA CAVA, PERC APPROACH (11/16/17) Family History: States: No Known Family Hx - Social History Hx Tobacco Use: Yes (light smoker) Hx Alcohol Use: No Hx Substance Use: Yes (marijuana) - Immunization History Hx Tetanus Toxoid Vaccination: No Hx Influenza Vaccination: Yes Hx Pneumococcal Vaccination: Yes Review Of Systems Except As Marked, All Systems Reviewed And Found Negative. Cardiovascular: Negative for: Chest Pain Respiratory: Negative for: Shortness of Breath Gastrointestinal: Negative for: Nausea, Vomiting, Abdominal Pain Musculoskeletal: Positive for: Other (bilateral leg swelling) Physical Exam - Physical Exam Appears: Non-toxic, No Acute Distress, Other (laying flat) Skin: Warm, Dry Head: Atraumatic, Normacephalic Eye(s): bilateral: Normal Inspection Oral Mucosa: Moist Neck: Trachea Midline, Supple Chest: Symmetrical, No Tenderness Cardiovascular: Rhythm Regular, No Murmur Respiratory: No Rales, No Rhonchi, No Wheezing Gastrointestinal/Abdominal: Soft, No Tenderness, No Guarding, No Rebound, Other (morbidly obese) Extremity: Normal ROM (all extremities), Swelling (lower extremities) Neurological/Psych: Oriented x3, Normal Speech, Normal Cognition ED Course And Treatment O2 Sat by Pulse Oximetry: 99 (RA) Pulse Ox Interpretation: Normal - Radiology CXR: Interpreted by Me CXR Interpretation: Yes: Other (poor inspiratory effort) Medical Decision Making Medical Decision Making: Plan: CXR Disposition - Disposition Referrals: [facility] [Outside] [facility] [Outside] Disposition: HOME/ ROUTINE Disposition Time: 22:44 Condition: GOOD Additional Instructions: [facility] STUBBS, thank you for letting us take care of you today. The emergency medical care you received today was directed at your acute symptoms. If you were prescribed any medication, please fill it and take as directed. It may take several days for your symptoms to resolve. Return to the Emergency Department if your symptoms worsen, do not improve, or if you have any other problems. Please contact your doctor or call one of the physicians/clinics you have been referred to that are listed on the Patient Visit Information form that is included in your discharge packet. Bring any paperwork you were given at discharge with you along with any medications you are taking to your follow up visit. Our treatment cannot replace ongoing medical care by a primary care provider outside of the emergency department. Thank you for allowing the [facility] team to be part of your care today. Follow up with your primary doctor or the clinic in 3-5 days for re-evaluation and further management. Prescriptions: Furosemide [Lasix] 40 mg PO DAILY #10 tab Instructions: Dependent Edema (DC) Forms: [employer] (Mexican) - Clinical Impression Clinical Impression: Leg edema - Scribe Statement The provider has reviewed the documentation as recorded by the Scribe (Tristan Limavi) Provider Attestation: All medical record entries made by the Scribe were at my direction and personally dictated by me. I have reviewed the chart and agree that the record accurately reflects my personal performance of the history, physical exam, medical decision making, and the department course for this patient. I have also personally directed, reviewed, and agree with the discharge instructions and disposition.
[2018-04-28 00:09] VITALS: BP 137/79; PULSE 79; TEMP 98
[2018-04-28 00:34] VITALS: O2SAT 99
--- NOTE | 2018-04-28 22:14 | RAD ---
Date of service: 04/27/2018 HISTORY: r/o infiltrate COMPARISON: Comparison is made with 12/20/2017 FINDINGS: LUNGS: Again seen are heterogeneous opacities at the mid and lower right lung. PLEURA: Suspicious for right pleural effusion. CARDIOVASCULAR: Normal. OSSEOUS STRUCTURES: No significant abnormalities. VISUALIZED UPPER ABDOMEN: Normal. OTHER FINDINGS: None. IMPRESSION: Persistent heterogeneous opacities at the right lower lung likely associated with pleural effusion.
== END 2018-04-28 00:08 | disposition home or self-care (01) ==
LOC: C.ER 18:12
DX: R60.0 Localized edema (principal); I10 Essential (primary) hypertension; F17.200 Nicotine dependence, unspecified, uncomplicated

== ENCOUNTER 2018-06-27 07:51 | Emergency (ER) | payer MEDICAID ==
[2018-06-27 07:51] VITALS: BMI 70.4
[2018-06-27 08:18] VITALS: BP 131/83; PULSE 95; RESP 20; TEMP 99.5; O2SAT 96
--- NOTE | 2018-06-27 09:32 | RAD ---
Date of service: 06/27/2018 HISTORY: cough r/o infiltrate COMPARISON: Portable chest 05/28/2018. TECHNIQUE: Chest PA and lateral FINDINGS: LUNGS: There is a loss of the inferior margins of the left heart border suspicious for possible lingular airspace disease. Linear atelectasis appreciated at the right base though somewhat diminished. No alveolitis right chest. PLEURA: No significant pleural effusion identified. No pneumothorax apparent. CARDIOVASCULAR: Cardiomediastinal silhouette is stable. No definite pulmonary vascular congestion. OSSEOUS STRUCTURES: No significant abnormalities. VISUALIZED UPPER ABDOMEN: Normal. OTHER FINDINGS: None. IMPRESSION: Questionable lingular airspace disease with linear atelectasis diminishing at the right base. No pulmonary vascular congestion.
--- NOTE | 2018-06-27 12:39 | C.PDOC ---
History Of Present Illness 43-year-old male, presents to the emergency department with complaints of a productive cough with white/yellow sputum ongoing for the past few days. Patient denies fever, chest pain, vomiting, back pain or any other associated symptoms. no other complaints at this time. Chief Complaint (Nursing): Cough, Cold, Congestion Past Medical History Vital Signs: Last Vital Signs Temp 99.5 F 06/27/18 08:15 Pulse 95 H 06/27/18 08:15 Resp 20 06/27/18 09:53 BP 131/83 06/27/18 08:15 Pulse Ox 96 06/27/18 08:15 - Medical History PMH: Anxiety, Bronchitis, Depression, HTN, Pneumonia - [facility] Procedures CHANGE PRESSURE DRESSING ON ABDOMINAL WALL (11/16/17) DRAINAGE OF ABDOMINAL WALL, OPEN APPROACH (11/16/17) DRAINAGE OF L PLEURAL CAV WITH DRAIN DEV, PERC APPROACH (11/16/17) DRAINAGE OF LEFT PLEURAL CAVITY, PERCUTANEOUS APPROACH (11/16/17) EXCISION OF ABD SUBCU/FASCIA, OPEN APPROACH (11/16/17) EXCISION OF ABDOMINAL WALL, OPEN APPROACH (11/16/17) EXCISION OF CHEST SUBCU/FASCIA, OPEN APPROACH (11/16/17) INSERTION OF INFUSION DEV INTO SUP VENA CAVA, PERC APPROACH (11/16/17) Family History: States: Unknown Family Hx - Social History Hx Tobacco Use: Yes (light smoker) Hx Alcohol Use: No Hx Substance Use: Yes (marijuana) - Immunization History Hx Tetanus Toxoid Vaccination: No Hx Influenza Vaccination: Yes Hx Pneumococcal Vaccination: Yes Review Of Systems Constitutional: Negative for: Fever Respiratory: Positive for: Cough, Sputum. Negative for: Shortness of Breath Gastrointestinal: Negative for: Vomiting Skin: Negative for: Rash Neurological: Negative for: Weakness, Numbness Physical Exam - Physical Exam Appears: Non-toxic, No Acute Distress, Other (Morbidly obese) Skin: Warm, Dry, No Rash Head: Atraumatic, Normacephalic Eye(s): bilateral: Normal Inspection Nose: Normal Oral Mucosa: Moist Lips: Normal Appearing Neck: Normal ROM Chest: Symmetrical Cardiovascular: Rhythm Regular, No Murmur Respiratory: Other (Limited by body habitus) Extremity: Pedal Edema (B/L LE), No Deformity Neurological/Psych: Oriented x3, Normal Speech ED Course And Treatment O2 Sat by Pulse Oximetry: 96 Pulse Ox Interpretation: Normal (RA) Disposition - Disposition Referrals: Ky Todd MD [Staff Provider] - Disposition: HOME/ ROUTINE Disposition Time: 09:40 Condition: GOOD Additional Instructions: XAVI STUBBS, thank you for letting us take care of you today. The emergency medical care you received today was directed at your acute symptoms. If you were prescribed any medication, please fill it and take as directed. It may take several days for your symptoms to resolve. Return to the Emergency Department if your symptoms worsen, do not improve, or if you have any other problems. Please contact your doctor or call one of the physicians/clinics you have been referred to that are listed on the Patient Visit Information form that is included in your discharge packet. Bring any paperwork you were given at discharge with you along with any medications you are taking to your follow up visit. Our treatment cannot replace ongoing medical care by a primary care provider outside of the emergency department. Thank you for allowing the [facility] team to be part of your care today. Follow up with your primary care doctor in 3-4 days for re-evaluation and further management. Prescriptions: levoFLOXacin [Levaquin] 750 mg PO DAILY #5 tab Instructions: Upper Respiratory Infection (ED) Forms: [employer] (Thai) - Clinical Impression Clinical Impression: Viral syndrome - Scribe Statement The provider has reviewed the documentation as recorded by the Scribe (Sofia Morales) All medical record entries made by the Scribe were at my direction and personally dictated by me. I have reviewed the chart and agree that the record accurately reflects my personal performance of the history, physical exam, medical decision making, and the department course for this patient. I have also personally directed, reviewed, and agree with the discharge instructions and disposition.
== END 2018-06-27 09:56 | disposition home or self-care (01) ==
LOC: C.ER 07:51
DX: B34.9 Viral infection, unspecified (principal)

== ENCOUNTER 2018-07-09 10:49 | Inpatient (IN) | payer MEDICAID ==
[2018-07-09 10:49] VITALS: BMI 70.4
[2018-07-09 12:14] LABS: BASO # 0.1 K/uL (0.0-0.2); BASO % 1.2 % (0.0-2.0); EOS # 0.1 K/uL (0.0-0.7); EOS % 1.5 % (0.0-4.0); HEMOGLOBIN 11.4 g/dL (12.0-18.0); LYMPH # 1.6 K/uL (1.0-4.3); LYMPH % 17.1 % (20.0-40.0); MEAN CELL VOLUME 79.3 fL (80.0-94.0); MEAN CORPUSCULAR HEMOGLOBIN 26.2 pg (27.0-31.0); MEAN CORPUSCULAR HGB CONC 33.1 g/dL (33.0-37.0); MEAN PLATELET VOLUME 7.6 fL (7.2-11.7); MONO # 0.8 K/uL (0.0-0.8); MONO % 8.8 % (0.0-10.0); NEUT # 6.6 K/uL (1.8-7.0); NEUT % 71.4 % (50.0-75.0); RBC 4.36 Mil/uL (4.40-5.90); RED CELL DISTRIBUTION WIDTH 15.5 % (11.5-14.5); WHITE BLOOD COUNT 9.3 K/uL (4.8-10.8)
--- NOTE | 2018-07-09 12:30 | C.PDOC ---
History Of Present Illness 43 year old male with a history of hypertension and CHF presents to the ED for evaluation of increased bilateral leg swelling for 4 days. Patient notes prior visit to PMD 4 days ago and instructed by PMD to visit the ED for further evaluation. Admits to taking his chronic medication with no improvement. Also notes he is currently homeless. Denies chest pain, sob, trauma, fever, changes in sensation, abdominal pain, n/v/d and any other associated symptoms. Time Seen by Provider: 07/09/18 11:06 Chief Complaint (Nursing): Medical Clearance History Per: Patient History/Exam Limitations: no limitations Onset/Duration Of Symptoms: Days Current Symptoms Are (Timing): Still Present Past Medical History Reviewed: Historical Data, Nursing Documentation, Vital Signs Vital Signs: Last Vital Signs Temp 98.3 F 07/09/18 11:03 Pulse 99 H 07/09/18 11:03 Resp 18 07/09/18 11:03 BP 155/81 H 07/09/18 11:03 Pulse Ox 97 07/09/18 11:03 - Medical History PMH: Anxiety, Bronchitis, CHF, Depression, HTN, Pneumonia - [facility] Procedures CHANGE PRESSURE DRESSING ON ABDOMINAL WALL (11/16/17) DRAINAGE OF ABDOMINAL WALL, OPEN APPROACH (11/16/17) DRAINAGE OF L PLEURAL CAV WITH DRAIN DEV, PERC APPROACH (11/16/17) DRAINAGE OF LEFT PLEURAL CAVITY, PERCUTANEOUS APPROACH (11/16/17) EXCISION OF ABD SUBCU/FASCIA, OPEN APPROACH (11/16/17) EXCISION OF ABDOMINAL WALL, OPEN APPROACH (11/16/17) EXCISION OF CHEST SUBCU/FASCIA, OPEN APPROACH (11/16/17) INSERTION OF INFUSION DEV INTO SUP VENA CAVA, PERC APPROACH (11/16/17) Family History: States: Unknown Family Hx - Social History Hx Tobacco Use: Yes (light smoker) Hx Alcohol Use: No Hx Substance Use: Yes (marijuana) - Immunization History Hx Tetanus Toxoid Vaccination: No Hx Influenza Vaccination: Yes Hx Pneumococcal Vaccination: Yes Review Of Systems Except As Marked, All Systems Reviewed And Found Negative. Constitutional: Negative for: Fever Cardiovascular: Negative for: Chest Pain Musculoskeletal: Positive for: Other (bilateral leg swelling. ) Neurological: Negative for: Weakness, Numbness, Incoordination Physical Exam - Physical Exam Appears: Non-toxic, Other (morbidly obese. foul smelling. ) Skin: Warm, Dry Head: Atraumatic, Normacephalic Eye(s): bilateral: Normal Inspection, EOMI Oral Mucosa: Moist Neck: Normal ROM, Supple Chest: Symmetrical, No Deformity Cardiovascular: Rhythm Regular Respiratory: Decreased Breath Sounds, No Rales, Rhonchi, No Wheezing Gastrointestinal/Abdominal: Soft, No Tenderness Extremity: Other (bilateral pedal edema. ) Neurological/Psych: Oriented x3, Normal Speech, Normal Sensation ED Course And Treatment - Laboratory Results Result Diagrams: 07/09/18 12:11 07/09/18 12:40 ECG Rhythm: Sinus Rhythm Interpretation Of ECG: --Sinus rhythm 90 Rate From EC O2 Sat by Pulse Oximetry: 97 (RA) Pulse Ox Interpretation: Normal - Other Rad CXR X-Ray: Viewed By Me, Read By Radiologist Interpretation: FINDINGS: LUNGS: Linear atelectasis right lower lobe. Otherwise unremarkable. Persistent low lung volumes. PLEURA: No pneumothorax or pleural fluid seen. CARDIOVASCULAR: No radiographic findings to suggest acute or significant cardiovascular disease. OSSEOUS STRUCTURES: No significant abnormalities. VISUALIZED UPPER ABDOMEN: Normal. OTHER FINDINGS: None. IMPRESSION: No active disease. No acute/significant interval changes. Progress Note: Blood sent. EKG. CXR. Case discussed with Dr. Todd who agreed to admit the patient. Disposition - Disposition Disposition: HOSPITALIZED Disposition Time: 15:00 Condition: STABLE - Clinical Impression Clinical Impression: Pedal edema, Morbid obesity, Reactive airway disease - PA / STUDENT ACTIVITIES DIRECTOR / Resident Statement MD/DO has reviewed & agrees with the documentation as recorded. - Scribe Statement The provider has reviewed the documentation as recorded by the Scribe (Kayy Martinez)
[2018-07-09 12:59] LABS: ALBUMIN 3.3 g/dL (3.5-5.0); ALT/SGPT 22 U/L (21-72); AST/SGOT 18 U/L (17-59); BLOOD UREA NITROGEN 15 mg/dL (9-20); CALCIUM 8.6 mg/dl (8.6-10.4); GFR NON-AFRICAN AMERICAN > 60
[2018-07-09 13:08] LABS: B-TYPE NATRIURETIC PEPTIDE 64.1 pg/mL (0-450); CK-MB 1.03 ng/mL (0.0-3.38)
--- NOTE | 2018-07-09 13:27 | RAD ---
Date of service: 07/09/2018 PROCEDURE: CHEST RADIOGRAPH, 1 VIEW HISTORY: pain COMPARISON: 06/27/2018 FINDINGS: LUNGS: Linear atelectasis right lower lobe. Otherwise unremarkable. Persistent low lung volumes. PLEURA: No pneumothorax or pleural fluid seen. CARDIOVASCULAR: No radiographic findings to suggest acute or significant cardiovascular disease. OSSEOUS STRUCTURES: No significant abnormalities. VISUALIZED UPPER ABDOMEN: Normal. OTHER FINDINGS: None. IMPRESSION: No active disease. No acute/significant interval changes.
[2018-07-09] MEDS ORDERED: Albuterol 0.083% Inhal Sol (2.5 mg/3 mL) UD IH STA (13:33)
[2018-07-09 13:53] VITALS: RESP 20
[2018-07-09] MEDS ORDERED: Albuterol 0.083% Inhal Sol (2.5 mg/3 mL) UD ONE (14:17)
[2018-07-09] MEDS: Albuterol-Ipratrop 3 mg / 0.5 (3 ml) UD INH SCH (19:00)
--- NOTE | 2018-07-09 19:16 | CP.PCM.HP ---
Past Patient History - Infectious Disease Hx of Infectious Diseases: None - Past Medical History & Family History Past Medical History?: No - Past Social History Smoking Status: Heavy Smoker > 10 Cigarettes Daily - CARDIAC Hx Congestive Heart Failure: Yes Hx Hypertension: Yes - PULMONARY Hx Bronchitis: Yes Hx Pneumonia: Yes - NEUROLOGICAL Hx Neurological Disorder: No - ENDOCRINE/METABOLIC Hx Endocrine Disorders: Yes Other/Comment: Obesity as per patient - INTEGUMENTARY Hx Dermatological Problems: Yes Hx Cellulitis: Yes - MUSCULOSKELETAL/RHEUMATOLOGICAL Hx Falls: No - GASTROINTESTINAL Other/Comment: abdominal wound, with wound vac in past. - PSYCHIATRIC Hx Anxiety: Yes Hx Depression: Yes Hx Substance Use: Yes (marijuana) - SURGICAL HISTORY Hx Surgeries: Yes Other/Comment: abdominal surgery-chest tube placement as per patient. - ANESTHESIA Hx Anesthesia: Yes Hx Anesthesia Reactions: No Hx Malignant Hyperthermia: No Meds Allergies/Adverse Reactions: Allergies Allergy/AdvReac Type Severity Reaction Status Date / Time No Known Allergies Allergy Verified 06/27/18 08:18 Physical Exam - Constitutional Appears: Well - Head Exam Head Exam: ATRAUMATIC, NORMAL INSPECTION, NORMOCEPHALIC - Eye Exam Eye Exam: EOMI, Normal appearance, PERRL Pupil Exam: NORMAL ACCOMODATION, PERRL - ENT Exam ENT Exam: Mucous Membranes Moist, Normal Exam - Neck Exam Neck exam: Positive for: Normal Inspection - Respiratory Exam Respiratory Exam: Decreased Breath Sounds - Cardiovascular Exam Cardiovascular Exam: REGULAR RHYTHM, +S1, +S2 - GI/Abdominal Exam GI & Abdominal Exam: Diminished Bowel Sounds, Soft - Rectal Exam Rectal Exam: Deferred Results - Vital Signs Recent Vital Signs: Last Vital Signs Temp 97.6 F 07/09/18 15:45 Pulse 110 H 07/09/18 15:45 Resp 20 07/09/18 15:45 BP 145/76 07/09/18 15:45 Pulse Ox 97 07/09/18 18:06 - Labs Result Diagrams: 07/09/18 12:11 07/09/18 12:40 Labs: Laboratory Results - last 24 hr 07/09/18 07/09/18 12:11 12:40 WBC 9.3 RBC 4.36 L Hgb 11.4 L Hct 34.6 L MCV 79.3 L MCH 26.2 L MCHC 33.1 RDW 15.5 H Plt Count 295 MPV 7.6 Neut % (Auto) 71.4 Lymph % (Auto) 17.1 L Maries % (Auto) 8.8 Eos % (Auto) 1.5 Baso % (Auto) 1.2 Neut # (Auto) 6.6 Lymph # (Auto) 1.6 Maries # (Auto) 0.8 Eos # (Auto) 0.1 Baso # (Auto) 0.1 Sodium 139 Potassium 4.1 Chloride 103 Carbon Dioxide 27 Anion Gap 13 BUN 15 Creatinine 0.8 Est GFR ( Amer) > 60 Est GFR (Non-Af Amer) > 60 Random Glucose 103 Calcium 8.6 Total Bilirubin 0.3 AST 18 ALT 22 Alkaline Phosphatase 196 H D CK-MB (Mass) 1.03 NT-Pro-B Natriuret Pep 64.1 Total Protein 6.7 Albumin 3.3 L Globulin 3.4 Albumin/Globulin Ratio 1.0
[2018-07-10] MEDS: Albuterol-Ipratrop 3 mg / 0.5 (3 ml) UD INH SCH ×4 (01:50→19:20)
[2018-07-10] MEDS ORDERED: Pantoprazole 40 mg EC Tab PO SCH (10:00)
[2018-07-10] MEDS ORDERED: Influenza Vaccine 60 MCG/0.5 ML SYR (3 yr & up) IM ONE (10:00)
[2018-07-10] MEDS ORDERED: FUROSEMIDE 40 MG PO SCH (10:00)
[2018-07-10] MEDS: Pantoprazole 40 mg EC Tab PO SCH (10:59)
[2018-07-10] MEDS: Enoxaparin 40 mg Syringe SC SCH (10:59)
--- NOTE | 2018-07-10 14:33 | CP.PCM.PN ---
Subjective - Date & Time of Evaluation Date of Evaluation: 07/10/18 Time of Evaluation: 11:15 - Subjective Subjective: clinically same Objective - Vital Signs/Intake and Output Vital Signs (last 24 hours): Temp Pulse Resp BP Pulse Ox 98.9 F 96 H 20 135/75 98 07/10/18 07:30 07/10/18 08:00 07/10/18 07:30 07/10/18 11:00 07/10/18 09:00 Intake and Output: 07/10/18 07/10/18 06:59 18:59 Intake Total 200 Output Total 600 Balance -400 - Medications Medications: Current Medications Albuterol/Ipratropium (Duoneb 3 Mg/0.5 Mg (3 Ml) Ud) 3 ml INH RQ6 [facility] Last Admin: 07/10/18 13:40 Dose: 3 ml Enoxaparin Sodium (Lovenox) 40 mg SC DAILY [facility] Last Admin: 07/10/18 10:59 Dose: 40 mg Furosemide (Lasix) 40 mg IVP DAILY [facility] Last Admin: 07/10/18 11:00 Dose: 40 mg Pantoprazole Sodium (Protonix Ec Tab) 40 mg PO DAILY [facility] Last Admin: 07/10/18 10:59 Dose: 40 mg - Labs Labs: 07/09/18 12:11 07/09/18 12:40
[2018-07-11] MEDS: Albuterol-Ipratrop 3 mg / 0.5 (3 ml) UD INH SCH ×4 (01:32→19:48)
[2018-07-11] MEDS: Enoxaparin 40 mg Syringe SC SCH (10:10)
[2018-07-11] MEDS: Pantoprazole 40 mg EC Tab PO SCH (10:10)
--- NOTE | 2018-07-11 18:19 | CP.PCM.PN ---
Subjective - Date & Time of Evaluation Date of Evaluation: 07/11/18 Time of Evaluation: 10:30 - Subjective Subjective: clinically same Objective - Vital Signs/Intake and Output Vital Signs (last 24 hours): Temp Pulse Resp BP Pulse Ox 98.0 F 88 20 129/80 97 07/11/18 15:00 07/11/18 16:56 07/11/18 15:00 07/11/18 15:00 07/11/18 15:00 Intake and Output: 07/11/18 07/11/18 06:59 18:59 Intake Total 240 Balance 240 - Medications Medications: Current Medications Albuterol/Ipratropium (Duoneb 3 Mg/0.5 Mg (3 Ml) Ud) 3 ml INH RQ6 [facility] Last Admin: 07/11/18 13:26 Dose: 3 ml Enoxaparin Sodium (Lovenox) 40 mg SC DAILY [facility] Last Admin: 07/11/18 10:10 Dose: 40 mg Furosemide (Lasix) 40 mg IVP DAILY [facility] Last Admin: 07/11/18 10:10 Dose: 40 mg Pantoprazole Sodium (Protonix Ec Tab) 40 mg PO DAILY [facility] Last Admin: 07/11/18 10:10 Dose: 40 mg - Labs Labs: 07/09/18 12:11 07/09/18 12:40 - Constitutional Appears: Well - Head Exam Head Exam: ATRAUMATIC, NORMAL INSPECTION, NORMOCEPHALIC - Eye Exam Eye Exam: EOMI, Normal appearance, PERRL Pupil Exam: NORMAL ACCOMODATION, PERRL - ENT Exam ENT Exam: Mucous Membranes Moist, Normal Exam - Neck Exam Neck Exam: Full ROM, Normal Inspection. absent: Lymphadenopathy - Respiratory Exam Respiratory Exam: Decreased Breath Sounds - Cardiovascular Exam Cardiovascular Exam: REGULAR RHYTHM, +S1, +S2 - GI/Abdominal Exam GI & Abdominal Exam: Soft, Diminished Bowel Sounds - Rectal Exam Rectal Exam: Deferred
--- NOTE | 2018-07-12 | CARD ---
APPROVED REPORT Date of service: 07/09/2018 EKG Measurement Heart [id number] <Conclusion> Normal sinus rhythm Normal ECG
[2018-07-12] MEDS: Albuterol-Ipratrop 3 mg / 0.5 (3 ml) UD INH SCH ×3 (01:52→13:18)
[2018-07-12] MEDS: Pantoprazole 40 mg EC Tab PO SCH (09:58)
[2018-07-12] MEDS: Enoxaparin 40 mg Syringe SC SCH (09:59)
--- NOTE | 2018-07-12 15:59 | CP.PCM.PN ---
Subjective - Date & Time of Evaluation Date of Evaluation: 07/12/18 Time of Evaluation: 09:15 - Subjective Subjective: clinically same Objective - Vital Signs/Intake and Output Vital Signs (last 24 hours): Temp Pulse Resp BP Pulse Ox 98.2 F 91 H 20 138/78 95 07/12/18 07:35 07/12/18 07:35 07/12/18 07:35 07/12/18 09:59 07/12/18 07:35 Intake and Output: 07/12/18 07/12/18 06:59 18:59 Intake Total 1000 Balance 1000 - Medications Medications: Current Medications Albuterol/Ipratropium (Duoneb 3 Mg/0.5 Mg (3 Ml) Ud) 3 ml INH RQ6 [facility] Last Admin: 07/12/18 13:18 Dose: 3 ml Enoxaparin Sodium (Lovenox) 40 mg SC DAILY [facility] Last Admin: 07/12/18 09:59 Dose: 40 mg Furosemide (Lasix) 40 mg IVP DAILY [facility] Last Admin: 07/12/18 09:59 Dose: 40 mg Pantoprazole Sodium (Protonix Ec Tab) 40 mg PO DAILY [facility] Last Admin: 07/12/18 09:58 Dose: 40 mg - Labs Labs: 07/09/18 12:11 07/09/18 12:40 - Constitutional Appears: Well - Head Exam Head Exam: ATRAUMATIC, NORMAL INSPECTION, NORMOCEPHALIC - Eye Exam Eye Exam: EOMI, Normal appearance, PERRL Pupil Exam: NORMAL ACCOMODATION, PERRL - ENT Exam ENT Exam: Mucous Membranes Moist, Normal Exam - Neck Exam Neck Exam: Full ROM, Normal Inspection. absent: Lymphadenopathy - Respiratory Exam Respiratory Exam: Decreased Breath Sounds - Cardiovascular Exam Cardiovascular Exam: REGULAR RHYTHM, +S1, +S2 - GI/Abdominal Exam GI & Abdominal Exam: Soft, Diminished Bowel Sounds - Rectal Exam Rectal Exam: Deferred
[2018-07-13] MEDS: Albuterol-Ipratrop 3 mg / 0.5 (3 ml) UD INH SCH ×4 (01:53→20:54)
[2018-07-13] MEDS: Enoxaparin 40 mg Syringe SC SCH (10:51)
[2018-07-13] MEDS: Pantoprazole 40 mg EC Tab PO SCH (10:51)
[2018-07-13 14:07] LABS: BASO % 0.4 % (0.0-2.0); EOS # 0.2 K/uL (0.0-0.7); EOS % 2.9 % (0.0-4.0); HEMOGLOBIN 12.1 g/dL (12.0-18.0); LYMPH # 1.7 K/uL (1.0-4.3); LYMPH % 21.7 % (20.0-40.0); MEAN CELL VOLUME 78.3 fL (80.0-94.0); MEAN CORPUSCULAR HEMOGLOBIN 25.8 pg (27.0-31.0); MONO # 0.6 K/uL (0.0-0.8); NEUT # 5.3 K/uL (1.8-7.0); RBC 4.7 Mil/uL (4.40-5.90); RED CELL DISTRIBUTION WIDTH 15.3 % (11.5-14.5); WHITE BLOOD COUNT 7.9 K/uL (4.8-10.8)
[2018-07-13 15:03] LABS: BLOOD UREA NITROGEN 11 mg/dL (9-20); CALCIUM 8.6 mg/dl (8.6-10.4); GFR NON-AFRICAN AMERICAN > 60
--- NOTE | 2018-07-13 19:48 | CP.PCM.PN ---
Subjective - Date & Time of Evaluation Date of Evaluation: 07/13/18 Time of Evaluation: 08:00 - Subjective Subjective: clinically same Objective - Vital Signs/Intake and Output Vital Signs (last 24 hours): Temp Pulse Resp BP Pulse Ox 97.4 F L 81 20 135/80 94 L 07/13/18 16:21 07/13/18 16:21 07/13/18 16:21 07/13/18 16:21 07/13/18 16:21 Intake and Output: 07/13/18 07/14/18 18:59 06:59 Intake Total 980 Balance 980 - Medications Medications: Current Medications Albuterol/Ipratropium (Duoneb 3 Mg/0.5 Mg (3 Ml) Ud) 3 ml INH RQ6 [facility] Last Admin: 07/13/18 08:08 Dose: 3 ml Carvedilol (Coreg) 3.125 mg PO BID [facility] Last Admin: 07/13/18 17:50 Dose: 3.125 mg Enoxaparin Sodium (Lovenox) 40 mg SC DAILY [facility] Last Admin: 07/13/18 10:51 Dose: 40 mg Furosemide (Lasix) 40 mg IVP DAILY [facility] Last Admin: 07/13/18 10:52 Dose: 40 mg Pantoprazole Sodium (Protonix Ec Tab) 40 mg PO DAILY [facility] Last Admin: 07/13/18 10:51 Dose: 40 mg - Labs Labs: 07/13/18 13:59 07/13/18 13:59
[2018-07-14] MEDS: Albuterol-Ipratrop 3 mg / 0.5 (3 ml) UD INH SCH ×4 (01:28→19:49)
[2018-07-14] MEDS: Pantoprazole 40 mg EC Tab PO SCH (10:15)
[2018-07-14] MEDS: Enoxaparin 40 mg Syringe SC SCH (10:16)
--- NOTE | 2018-07-14 13:38 | CP.PCM.PN ---
Subjective - Date & Time of Evaluation Date of Evaluation: 07/14/18 Time of Evaluation: 07:45 - Subjective Subjective: clinically same Objective - Vital Signs/Intake and Output Vital Signs (last 24 hours): Temp Pulse Resp BP Pulse Ox 98.9 F 86 20 123/75 95 07/14/18 07:42 07/14/18 07:42 07/14/18 07:42 07/14/18 10:39 07/14/18 07:42 Intake and Output: 07/14/18 07/14/18 06:59 18:59 Intake Total 900 Output Total 450 Balance 450 - Medications Medications: Current Medications Albuterol/Ipratropium (Duoneb 3 Mg/0.5 Mg (3 Ml) Ud) 3 ml INH RQ6 [facility] Last Admin: 07/14/18 09:50 Dose: 3 ml Carvedilol (Coreg) 3.125 mg PO BID [facility] Last Admin: 07/14/18 10:15 Dose: 3.125 mg Enoxaparin Sodium (Lovenox) 40 mg SC DAILY [facility] Last Admin: 07/14/18 10:16 Dose: 40 mg Furosemide (Lasix) 40 mg PO DAILY [facility] Last Admin: 07/14/18 10:39 Dose: 40 mg Pantoprazole Sodium (Protonix Ec Tab) 40 mg PO DAILY [facility] Last Admin: 07/14/18 10:15 Dose: 40 mg - Labs Labs: 07/13/18 13:59 07/13/18 13:59
[2018-07-15] MEDS: Pantoprazole 40 mg EC Tab PO SCH (10:10)
[2018-07-15] MEDS: Enoxaparin 40 mg Syringe SC SCH (10:10)
--- NOTE | 2018-07-15 14:38 | CP.PCM.PN ---
Subjective - Date & Time of Evaluation Date of Evaluation: 07/15/18 Time of Evaluation: 07:45 - Subjective Subjective: clinically same Objective - Vital Signs/Intake and Output Vital Signs (last 24 hours): Temp Pulse Resp BP Pulse Ox 98.0 F 90 20 125/62 98 07/15/18 07:55 07/15/18 07:55 07/15/18 07:55 07/15/18 10:10 07/15/18 07:55 Intake and Output: 07/15/18 07/15/18 06:59 18:59 Intake Total 1200 1000 Output Total 900 1000 Balance 300 0 - Medications Medications: Current Medications Carvedilol (Coreg) 3.125 mg PO BID [facility] Last Admin: 07/15/18 10:14 Dose: 3.125 mg Enoxaparin Sodium (Lovenox) 40 mg SC DAILY [facility] Last Admin: 07/15/18 10:10 Dose: 40 mg Furosemide (Lasix) 40 mg PO DAILY [facility] Last Admin: 07/15/18 10:10 Dose: 40 mg Pantoprazole Sodium (Protonix Ec Tab) 40 mg PO DAILY [facility] Last Admin: 07/15/18 10:10 Dose: 40 mg - Labs Labs: 07/13/18 13:59 07/13/18 13:59 - Constitutional Appears: Well - Head Exam Head Exam: ATRAUMATIC, NORMAL INSPECTION, NORMOCEPHALIC - Eye Exam Eye Exam: EOMI, Normal appearance, PERRL Pupil Exam: NORMAL ACCOMODATION, PERRL - ENT Exam ENT Exam: Mucous Membranes Moist, Normal Exam - Neck Exam Neck Exam: Full ROM, Normal Inspection. absent: Lymphadenopathy - Respiratory Exam Respiratory Exam: Decreased Breath Sounds - Cardiovascular Exam Cardiovascular Exam: REGULAR RHYTHM, +S1, +S2 - GI/Abdominal Exam GI & Abdominal Exam: Soft, Diminished Bowel Sounds - Rectal Exam Rectal Exam: Deferred
[2018-07-16] MEDS ORDERED: Albuterol-Ipratrop 3 mg / 0.5 (3 ml) UD INH STA (01:44)
[2018-07-16] MEDS: Pantoprazole 40 mg EC Tab PO SCH (09:08)
[2018-07-16] MEDS: Enoxaparin 40 mg Syringe SC SCH (09:08)
--- NOTE | 2018-07-16 13:42 | RAD ---
Date of service: 07/16/2018 HISTORY: sob, r/o pneumonia COMPARISON: Chest radiograph dated 07/09/2018. TECHNIQUE: Chest PA and lateral FINDINGS: LUNGS: Right basilar atelectasis. PLEURA: Stable elevation of the right hemidiaphragm. No significant pleural effusion identified. No pneumothorax apparent. CARDIOVASCULAR: No aortic atherosclerotic calcification present. Normal cardiac size. No pulmonary vascular congestion. OSSEOUS STRUCTURES: No significant abnormalities. VISUALIZED UPPER ABDOMEN: Normal. OTHER FINDINGS: None. IMPRESSION: No active disease.
--- NOTE | 2018-07-16 17:34 | CP.PCM.PN ---
Subjective - Date & Time of Evaluation Date of Evaluation: 07/16/18 Time of Evaluation: 07:30 - Subjective Subjective: clinically same Objective - Vital Signs/Intake and Output Vital Signs (last 24 hours): Temp Pulse Resp BP Pulse Ox 98.2 F 86 20 137/85 96 07/16/18 07:32 07/16/18 07:32 07/16/18 07:32 07/16/18 10:05 07/16/18 07:32 Intake and Output: 07/16/18 07/16/18 06:59 18:59 Intake Total 1250 600 Output Total 1500 Balance -250 600 - Medications Medications: Current Medications Albuterol/Ipratropium (Duoneb 3 Mg/0.5 Mg (3 Ml) Ud) 3 ml INH RQ6 [facility] Carvedilol (Coreg) 3.125 mg PO BID [facility] Last Admin: 07/16/18 17:23 Dose: 3.125 mg Enoxaparin Sodium (Lovenox) 40 mg SC DAILY [facility] Last Admin: 07/16/18 09:08 Dose: 40 mg Furosemide (Lasix) 40 mg IVP DAILY [facility] Last Admin: 07/16/18 10:05 Dose: 40 mg Pantoprazole Sodium (Protonix Ec Tab) 40 mg PO DAILY [facility] Last Admin: 07/16/18 09:08 Dose: 40 mg - Labs Labs: 07/13/18 13:59 07/13/18 13:59 - Constitutional Appears: Well - Head Exam Head Exam: ATRAUMATIC, NORMAL INSPECTION, NORMOCEPHALIC - Eye Exam Eye Exam: EOMI, Normal appearance, PERRL Pupil Exam: NORMAL ACCOMODATION, PERRL - ENT Exam ENT Exam: Mucous Membranes Moist, Normal Exam - Neck Exam Neck Exam: Full ROM, Normal Inspection. absent: Lymphadenopathy - Respiratory Exam Respiratory Exam: Decreased Breath Sounds - Cardiovascular Exam Cardiovascular Exam: REGULAR RHYTHM, +S1, +S2 - GI/Abdominal Exam GI & Abdominal Exam: Soft, Diminished Bowel Sounds - Rectal Exam Rectal Exam: Deferred
[2018-07-17 01:07] VITALS: O2SAT 97
[2018-07-17] MEDS: Albuterol-Ipratrop 3 mg / 0.5 (3 ml) UD INH SCH ×2 (01:43→08:19)
[2018-07-17 07:50] VITALS: PULSE 87; TEMP 97.9
[2018-07-17] MEDS: Pantoprazole 40 mg EC Tab PO SCH (09:58)
[2018-07-17] MEDS: Enoxaparin 40 mg Syringe SC SCH (10:00)
[2018-07-17 11:27] VITALS: BP 131/74
--- NOTE | 2018-07-17 16:07 | PCM.HF ---
Heart Failure Core Measure - Heart Failure Ejection Fraction: 40 % or Greater (EF 55-60%) JORGE Inhibitor Prescribed: No Contraindication/Reason for not providing: BP at the low side Beta-Alice Prescribed: Carvedilol Angiotensin II Receptor Alice Prescribed: No Contraindication/Reason for not providing: BP low side AnticoagulationTherapy for Atrial Fibrillation/Atrialflutter: No Contraindication/Reason for not providing: no afib Aldosterone Antagonist Prescribed: No Contraindication/Reason for not providing: EF >40% Hydralazine Nitrate Prescribed: No Contraindication/Reason for not providing: EF >40% Implantable Cardioverter Defibrillator Therapy: No Contraindication/Reason for not providing: EF >40% Cardiac Resynchronization Therapy Prescribed: No Contraindication/Reason for not providing: not indicated - Follow up Will be discharged to: Home Follow Up Date (must be within 7 days from discharge): 07/23/18
--- NOTE | 2018-07-17 16:17 | CP.PCM.PN ---
Subjective - Date & Time of Evaluation Date of Evaluation: 07/17/18 Time of Evaluation: 16:17 - Subjective Subjective: Alert and orientedx3, no sob or chest pains, NAD. Objective - Vital Signs/Intake and Output Vital Signs (last 24 hours): Temp Pulse Resp BP Pulse Ox 97.9 F 87 20 131/74 97 07/17/18 07:49 07/17/18 07:49 07/17/18 07:49 07/17/18 11:55 07/17/18 07:49 - Labs Labs: 07/13/18 13:59 07/13/18 13:59 Assessment and Plan - Assessment and Plan (Free Text) Assessment: 43 Year old obese male admitted with shortness of breath and leg edema, seen and examined. Alert and orientedx3, ambulating well with cane, denies sob or chest pains. [place] [address], or skilled nursing. Discussed with DR Leonides Todd, plan to discharge home today and follow up in the office in 1 week. 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
== END 2018-07-17 12:50 | disposition home or self-care (01) | DRG 277 ==
LOC: C.ER 10:49 → C.9E 13:27 → C.5S 14:58 → OBSVTOIN 07-11 16:25 → C.3T 07-12 14:57
PROVIDERS: ADMIT Internal Medicine Nephrology; ATTEND Internal Medicine Nephrology
PROC: 05HD33Z Insertion of Infusion Device into Right Cephalic Vein, Percutaneous Approach (ICD-10-PCS; principal; 2018-07-13)
DX: L03.115 Cellulitis of right lower limb (principal); I11.0 Hypertensive heart disease with heart failure; I50.9 Heart failure, unspecified; L03.116 Cellulitis of left lower limb; J45.909 Unspecified asthma, uncomplicated; Z68.45 Body mass index [BMI] 70 or greater, adult; E66.01 Morbid (severe) obesity due to excess calories; F17.210 Nicotine dependence, cigarettes, uncomplicated; F12.10 Cannabis abuse, uncomplicated; Z87.01 Personal history of pneumonia (recurrent); Z59.0 Homelessness; Z23 Encounter for immunization

== ENCOUNTER 2018-08-08 15:33 | Inpatient (IN) | payer MEDICAID ==
[2018-08-08 15:33] VITALS: BMI 70.4
[2018-08-08 16:28] LABS: BASO % 0.5 % (0.0-2.0); EOS # 0.1 K/uL (0.0-0.7); EOS % 1.5 % (0.0-4.0); HEMOGLOBIN 11.8 g/dL (12.0-18.0); LYMPH # 1.8 K/uL (1.0-4.3); LYMPH % 19.2 % (20.0-40.0); MEAN CELL VOLUME 77.4 fL (80.0-94.0); MEAN CORPUSCULAR HEMOGLOBIN 25.6 pg (27.0-31.0); MEAN PLATELET VOLUME 7.3 fL (7.2-11.7); MONO # 0.6 K/uL (0.0-0.8); MONO % 6.4 % (0.0-10.0); NEUT # 6.8 K/uL (1.8-7.0); NEUT % 72.4 % (50.0-75.0); NRBC % 0.1 % (0.0-2.0); RBC 4.62 Mil/uL (4.40-5.90); RED CELL DISTRIBUTION WIDTH 15.5 % (11.5-14.5); WHITE BLOOD COUNT 9.3 K/uL (4.8-10.8)
[2018-08-08 16:50] LABS: ALB/GLOB RATIO 1.2 (1.0-2.1); ALBUMIN 4.1 g/dL (3.5-5.0); ALT/SGPT 18 U/L (21-72); AST/SGOT 25 U/L (17-59); BLOOD UREA NITROGEN 15 mg/dL (9-20); CALCIUM 8.6 mg/dl (8.6-10.4); GFR NON-AFRICAN AMERICAN > 60
--- NOTE | 2018-08-08 17:05 | RAD ---
Date of service: 08/08/2018 PROCEDURE: CHEST RADIOGRAPH, 1 VIEW HISTORY: SOB COMPARISON: 07/16/2018 FINDINGS: LUNGS: Clear. PLEURA: No pleural effusion or pneumothorax. There is nonspecific elevation of the right hemidiaphragm unchanged from prior examination. CARDIOVASCULAR: No aortic atherosclerotic calcification present. Normal. OSSEOUS STRUCTURES: No significant abnormalities. VISUALIZED UPPER ABDOMEN: Normal. OTHER FINDINGS: None. IMPRESSION: No active disease.
--- NOTE | 2018-08-08 17:42 | C.PDOC ---
History Of Present Illness 43 year old male is sent to the ED by his PMD for evaluation of worsening peripheral edema. Patient has been placed on Lasix intermittently without relief. Patient has also failed attempts at outpatient management. Of note, patient states he is homeeless and usually sleeps in a chair in the prison with his legs hanging down. Recently he jone been sleeping outside. Patient was evaluated in Dr. Todd's office today, and was sent to the ED for further evaluation. Patient denies fever, chills, shortness of breath, chest pain. PMD. Dr. Jair Todd Time Seen by Provider: 08/08/18 16:03 Chief Complaint (Nursing): Shortness Of Breath History Per: Patient History/Exam Limitations: no limitations Current Symptoms Are (Timing): Still Present Additional History Per: Patient Past Medical History Reviewed: Historical Data, Nursing Documentation, Vital Signs Vital Signs: Last Vital Signs Temp 98.5 F 08/08/18 15:41 Pulse 93 H 08/08/18 15:41 Resp 32 H 08/08/18 15:41 BP 115/72 08/08/18 15:41 Pulse Ox 99 08/08/18 15:41 - Medical History PMH: Anxiety, Bronchitis, CHF, Depression, HTN, Pneumonia Denies: Chronic Kidney Disease Surgical History: No Surg Hx - [facility] Procedures CHANGE PRESSURE DRESSING ON ABDOMINAL WALL (11/16/17) DRAINAGE OF ABDOMINAL WALL, OPEN APPROACH (11/16/17) DRAINAGE OF L PLEURAL CAV WITH DRAIN DEV, PERC APPROACH (11/16/17) DRAINAGE OF LEFT PLEURAL CAVITY, PERCUTANEOUS APPROACH (11/16/17) EXCISION OF ABD SUBCU/FASCIA, OPEN APPROACH (11/16/17) EXCISION OF ABDOMINAL WALL, OPEN APPROACH (11/16/17) EXCISION OF CHEST SUBCU/FASCIA, OPEN APPROACH (11/16/17) INSERT OF INFUSION DEV INTO R CEPHALIC VEIN, PERC APPROACH (07/11/18) INSERTION OF INFUSION DEV INTO SUP VENA CAVA, PERC APPROACH (11/16/17) Family History: States: Unknown Family Hx - Social History Hx Tobacco Use: Yes (light smoker) Hx Alcohol Use: Yes Hx Substance Use: Yes (marijuana) - Immunization History Hx Tetanus Toxoid Vaccination: No Hx Influenza Vaccination: Yes Hx Pneumococcal Vaccination: Yes Review Of Systems Constitutional: Negative for: Fever, Chills Cardiovascular: Negative for: Chest Pain Respiratory: Negative for: Shortness of Breath Musculoskeletal: Positive for: Other (peripheral edema ) Physical Exam - Physical Exam Appears: Non-toxic, No Acute Distress, Other (winded) Skin: Normal Color, Warm, Dry Head: Atraumatic, Normacephalic Eye(s): bilateral: Normal Inspection Oral Mucosa: Moist Neck: Supple Chest: Symmetrical, No Deformity, No Tenderness Cardiovascular: Rhythm Regular, No Murmur Respiratory: Normal Breath Sounds, No Rales, No Rhonchi, No Wheezing, Other (speaking in 3-4 word sentences) Extremity: Capillary Refill (less than 2 seconds ), Other (edema to bilateral lower extremities ) Pulses: Left Dorsalis Pedis: Normal, Right Dorsalis Pedis: Normal Neurological/Psych: Oriented x3, Normal Speech, Normal Cognition ED Course And Treatment - Laboratory Results Result Diagrams: 08/08/18 16:24 08/08/18 16:24 Lab Interpretation: Abnormal (d dimer 846, troponin normal) ECG: Interpreted By Me ECG Rhythm: Sinus Rhythm ECG Interpretation: Normal O2 Sat by Pulse Oximetry: 99 (on RA) Pulse Ox Interpretation: Normal - Radiology CXR: Interpreted by Me CXR Interpretation: Yes: No Acute Disease (Poor inspiratory effort. Film limited due to body habitus) - Other Rad CXR X-Ray: Viewed By Me, Read By Radiologist Interpretation: Date of service: 08/08/2018. PROCEDURE: CHEST RADIOGRAPH, 1 VIEW. HISTORY: SOB. COMPARISON: 07/16/2018. FINDINGS: LUNGS: Clear. PLEURA: No pleural effusion or pneumothorax. There is nonspecific elevation of the right hemidiaphragm unchanged from prior examination. CARDIOVASCULAR: No aortic atherosclerotic calcification present. Normal. OSSEOUS STRUCTURES: No significant abnormalities. VISUALIZED UPPER ABDOMEN: Normal. OTHER FINDINGS: None. IMPRESSION: No active disease. Progress Note: Bloodwork, urinalysis, CXR, EKG ordered and reviewed. - Physician Consult Information Time Consulting Physician Contacted: 18:09 Physician Contacted: Ky Todd Outcome Of Conversation: Patient has failed outpatient management of severe peribpheral edema. He now presents with dyspnea and requires hospitalization. Venous doppler pending. Disposition - Disposition Disposition: HOSPITALIZED Disposition Time: 18:10 Condition: FAIR - Clinical Impression Clinical Impression: Dyspnea, Leg swelling, Pedal edema, Chronic venous stasis dermatitis - Scribe Statement The provider has reviewed the documentation as recorded by the Scribe (Anaid Todd) Provider Attestation: All medical record entries made by the Scribe were at my direction and personally dictated by me. I have reviewed the chart and agree that the record accurately reflects my personal performance of the history, physical exam, medical decision making, and the department course for this patient. I have also personally directed, reviewed, and agree with the discharge instructions and disposition.
[2018-08-08 18:07] LABS: URINE BILIRUBIN NEGATIVE (NEGATIVE); URINE CLARITY Clear (Clear); URINE COLOR Yellow (YELLOW); URINE GLUCOSE (UA) NORMAL (Normal); URINE LEUKOCYTE ESTERASE NEG Leu/uL (Negative); URINE PROTEIN NEGATIVE (NEGATIVE); URINE UROBILINOGEN NORMAL mg/dL (0.2-1.0)
[2018-08-08 18:12] LABS: URINE BLOOD TRACE (NEGATIVE)
--- NOTE | 2018-08-08 19:38 | CP.PCM.HP ---
Past Patient History - Infectious Disease Hx of Infectious Diseases: None - Past Medical History & Family History Past Medical History?: Yes - Past Social History Smoking Status: Heavy Smoker > 10 Cigarettes Daily - CARDIAC Hx Congestive Heart Failure: Yes Hx Hypertension: Yes - PULMONARY Hx Bronchitis: Yes Hx Pneumonia: Yes - NEUROLOGICAL Hx Neurological Disorder: No - HEENT Hx HEENT Problems: No - RENAL Hx Chronic Kidney Disease: No - ENDOCRINE/METABOLIC Hx Endocrine Disorders: Yes Other/Comment: Obesity as per patient - HEMATOLOGICAL/ONCOLOGICAL Hx Blood Disorders: No - INTEGUMENTARY Hx Dermatological Problems: Yes Hx Cellulitis: Yes - MUSCULOSKELETAL/RHEUMATOLOGICAL Hx Musculoskeletal Disorders: No Hx Falls: Yes - GASTROINTESTINAL Hx Gastrointestinal Disorders: No Other/Comment: abdominal wound, with wound vac in past. - GENITOURINARY/GYNECOLOGICAL Hx Genitourinary Disorders: No - PSYCHIATRIC Hx Anxiety: Yes Hx Depression: Yes Hx Substance Use: Yes (marijuana) - SURGICAL HISTORY Hx Surgeries: Yes Other/Comment: abdominal surgery-chest tube placement as per patient. - ANESTHESIA Hx Anesthesia: Yes Hx Anesthesia Reactions: No Hx Malignant Hyperthermia: No Meds Allergies/Adverse Reactions: Allergies Allergy/AdvReac Type Severity Reaction Status Date / Time No Known Allergies Allergy Verified 06/27/18 08:18 Physical Exam - Constitutional Appears: Well - Head Exam Head Exam: ATRAUMATIC, NORMAL INSPECTION, NORMOCEPHALIC - Eye Exam Eye Exam: EOMI, Normal appearance, PERRL Pupil Exam: NORMAL ACCOMODATION, PERRL - ENT Exam ENT Exam: Mucous Membranes Moist, Normal Exam - Neck Exam Neck exam: Positive for: Normal Inspection - Respiratory Exam Respiratory Exam: Decreased Breath Sounds - Cardiovascular Exam Cardiovascular Exam: REGULAR RHYTHM, +S1, +S2 - GI/Abdominal Exam GI & Abdominal Exam: Diminished Bowel Sounds, Soft - Rectal Exam Rectal Exam: Deferred Results - Vital Signs Recent Vital Signs: Last Vital Signs Temp 98.5 F 08/08/18 15:41 Pulse 100 H 08/08/18 18:23 Resp 18 08/08/18 18:23 BP 141/67 08/08/18 18:23 Pulse Ox 99 08/08/18 18:23 - Labs Result Diagrams: 08/08/18 16:24 08/08/18 16:24 Labs: Laboratory Results - last 24 hr 08/08/18 08/08/18 08/08/18 16:20 16:24 16:24 WBC 9.3 RBC 4.62 Hgb 11.8 L Hct 35.8 MCV 77.4 L MCH 25.6 L MCHC 33.0 RDW 15.5 H Plt Count 313 MPV 7.3 Neut % (Auto) 72.4 Lymph % (Auto) 19.2 L [place] % (Auto) 6.4 Eos % (Auto) 1.5 Baso % (Auto) 0.5 Neut # (Auto) 6.8 Lymph # (Auto) 1.8 [place] # (Auto) 0.6 Eos # (Auto) 0.1 Baso # (Auto) 0.0 D-Dimer, Quantitative 842 H Sodium Potassium Chloride Carbon Dioxide Anion Gap BUN Creatinine Est GFR ( Amer) Est GFR (Non-Af Amer) Random Glucose Calcium Magnesium Total Bilirubin AST ALT Alkaline Phosphatase Troponin I NT-Pro-B Natriuret Pep 84.3 Total Protein Albumin Globulin Albumin/Globulin Ratio TSH 3rd Generation Urine Color Urine Clarity Urine pH Ur Specific [place] Urine Protein Urine Glucose (UA) Urine Ketones Urine Blood Urine Nitrate Urine Bilirubin Urine Urobilinogen Ur Leukocyte Esterase Urine WBC (Auto) Urine RBC (Auto) 08/08/18 08/08/18 16:24 17:50 WBC RBC Hgb Hct MCV MCH MCHC RDW Plt Count MPV Neut % (Auto) Lymph % (Auto) [place] % (Auto) Eos % (Auto) Baso % (Auto) Neut # (Auto) Lymph # (Auto) [place] # (Auto) Eos # (Auto) Baso # (Auto) D-Dimer, Quantitative Sodium 140 Potassium 3.9 Chloride 104 Carbon Dioxide 27 Anion Gap 13 BUN 15 Creatinine 0.7 L Est GFR ( Amer) > 60 Est GFR (Non-Af Amer) > 60 Random Glucose 104 Calcium 8.6 Magnesium 2.0 Total Bilirubin 0.4 AST 25 ALT 18 L Alkaline Phosphatase 181 H Troponin I < 0.0120 NT-Pro-B Natriuret Pep Total Protein 7.5 Albumin 4.1 Globulin 3.5 Albumin/Globulin Ratio 1.2 TSH 3rd Generation 2.65 Urine Color Yellow Urine Clarity Clear Urine pH 5.0 Ur Specific [place] 1.021 Urine Protein Negative Urine Glucose (UA) Normal Urine Ketones Negative Urine Blood Trace H Urine Nitrate Negative Urine Bilirubin Negative Urine Urobilinogen Normal Ur Leukocyte Esterase Neg Urine WBC (Auto) < 1 Urine RBC (Auto) < 1
[2018-08-08] MEDS: Tramadol 25 mg PO PRN (22:41)
[2018-08-08] MEDS: Piperacillin/Tazobact 3.375 GM in Sodium Chloride 100 ML IVPB SCH (22:42)
[2018-08-08 23:56] VITALS: RESP 20
[2018-08-09] MEDS: Piperacillin/Tazobact 3.375 GM in Sodium Chloride 100 ML IVPB SCH ×4 (05:13→21:43)
[2018-08-09] MEDS: Enoxaparin 40 mg Syringe SC SCH (18:06)
--- NOTE | 2018-08-09 19:42 | CP.PCM.HP ---
Past Patient History - Infectious Disease Hx of Infectious Diseases: None - Past Medical History & Family History Past Medical History?: Yes - Past Social History Smoking Status: Light Smoker < 10 Cigarettes Daily - CARDIAC Hx Congestive Heart Failure: Yes Hx Hypertension: Yes - PULMONARY Hx Bronchitis: Yes Hx Pneumonia: Yes - NEUROLOGICAL Hx Neurological Disorder: No - HEENT Hx HEENT Problems: No - RENAL Hx Chronic Kidney Disease: No - ENDOCRINE/METABOLIC Hx Endocrine Disorders: Yes Other/Comment: Obesity as per patient - HEMATOLOGICAL/ONCOLOGICAL Hx Blood Disorders: No - INTEGUMENTARY Hx Dermatological Problems: Yes Hx Cellulitis: Yes - MUSCULOSKELETAL/RHEUMATOLOGICAL Hx Musculoskeletal Disorders: No Hx Falls: Yes - GASTROINTESTINAL Hx Gastrointestinal Disorders: No Other/Comment: abdominal wound, with wound vac in past. - GENITOURINARY/GYNECOLOGICAL Hx Genitourinary Disorders: No - PSYCHIATRIC Hx Anxiety: Yes Hx Depression: Yes Hx Substance Use: Yes (occ.) - SURGICAL HISTORY Hx Surgeries: Yes Other/Comment: abdominal surgery-chest tube placement as per patient. - ANESTHESIA Hx Anesthesia: Yes Hx Anesthesia Reactions: No Hx Malignant Hyperthermia: No Meds Allergies/Adverse Reactions: Allergies Allergy/AdvReac Type Severity Reaction Status Date / Time No Known Allergies Allergy Verified 06/27/18 08:18 Physical Exam - Constitutional Appears: Well - Head Exam Head Exam: ATRAUMATIC, NORMAL INSPECTION, NORMOCEPHALIC - Eye Exam Eye Exam: EOMI, Normal appearance, PERRL Pupil Exam: NORMAL ACCOMODATION, PERRL - ENT Exam ENT Exam: Mucous Membranes Moist, Normal Exam - Neck Exam Neck exam: Positive for: Normal Inspection - Respiratory Exam Respiratory Exam: Decreased Breath Sounds - Cardiovascular Exam Cardiovascular Exam: REGULAR RHYTHM, +S1, +S2 - GI/Abdominal Exam GI & Abdominal Exam: Diminished Bowel Sounds, Soft - Rectal Exam Rectal Exam: Deferred Results - Vital Signs Recent Vital Signs: Last Vital Signs Temp 98.2 F 08/09/18 16:00 Pulse 66 08/09/18 16:00 Resp 20 08/09/18 16:00 BP 162/99 H 08/09/18 16:00 Pulse Ox 96 08/09/18 16:00 - Labs Result Diagrams: 08/08/18 16:24 08/08/18 16:24
[2018-08-10] MEDS: Enoxaparin 40 mg Syringe SC SCH ×2 (05:46→16:29)
[2018-08-10] MEDS: Piperacillin/Tazobact 3.375 GM in Sodium Chloride 100 ML IVPB SCH ×3 (05:47→21:49)
--- NOTE | 2018-08-10 11:38 | RAD ---
Date of service: 08/10/2018 HISTORY: verify right PICC COMPARISON: Comparison made with prior chest radiograph 08/08/2018. FINDINGS: Interval placement right-sided PICC line with the tip the SVC. LUNGS: Mild increased central pulmonary vasculature; as findings may be secondary to semi-erect patient positioning and poor inspiration however possibility of mild venous congestion not completely excluded. Right lower lobe atelectasis and/or infiltrate with suspected right-sided effusion.. Minor left basilar atelectasis. PLEURA: As above. No pneumothorax apparent. CARDIOVASCULAR: No aortic atherosclerotic calcification present. Normal cardiac size. No pulmonary vascular congestion. OSSEOUS STRUCTURES: No significant abnormalities. VISUALIZED UPPER ABDOMEN: Normal. OTHER FINDINGS: None. IMPRESSION: Interval placement right-sided PICC line with tip in the SVC. Mild increased central pulmonary vasculature; as findings may be secondary to semi-erect patient positioning and poor inspiration however possibility of mild venous congestion not completely excluded. Right lower lobe atelectasis and/or infiltrate with suspected right-sided effusion.. Minor left basilar atelectasis.
[2018-08-10] MEDS: Tramadol 25 mg PO PRN (13:38)
--- NOTE | 2018-08-10 17:44 | CP.PCM.PN ---
Subjective - Date & Time of Evaluation Date of Evaluation: 08/10/18 Time of Evaluation: 10:45 - Subjective Subjective: clinically same Objective - Vital Signs/Intake and Output Vital Signs (last 24 hours): Temp Pulse Resp BP Pulse Ox 98.5 F 85 20 134/78 98 08/10/18 14:00 08/10/18 14:00 08/10/18 14:00 08/10/18 14:00 08/10/18 14:00 Intake and Output: 08/10/18 08/10/18 06:59 18:59 Intake Total 600 Output Total 450 1000 Balance -450 -400 - Medications Medications: Current Medications Atenolol (Tenormin) 25 mg PO DAILY [facility] Last Admin: 08/10/18 09:40 Dose: 25 mg Enoxaparin Sodium (Lovenox) 40 mg SC Q12H ZANE Last Admin: 08/10/18 16:29 Dose: 40 mg Furosemide (Lasix) 40 mg IVP DAILY [facility] Last Admin: 08/10/18 09:42 Dose: Not Given Piperacillin Sod/Tazobactam (Sod 3.375 gm/ Sodium Chloride) 100 mls @ 200 mls/hr IVPB Q8H ZANE; Protocol Last Admin: 08/10/18 13:34 Dose: 200 mls/hr Tramadol HCl (Ultram) 25 mg PO Q6 PRN PRN Reason: Pain, moderate (4-7) Last Admin: 08/10/18 13:38 Dose: 25 mg - Labs Labs: 08/08/18 16:24 08/08/18 16:24 - Constitutional Appears: Well - Head Exam Head Exam: ATRAUMATIC, NORMAL INSPECTION, NORMOCEPHALIC - Eye Exam Eye Exam: EOMI, Normal appearance, PERRL Pupil Exam: NORMAL ACCOMODATION, PERRL - ENT Exam ENT Exam: Mucous Membranes Moist, Normal Exam - Neck Exam Neck Exam: Full ROM, Normal Inspection. absent: Lymphadenopathy - Respiratory Exam Respiratory Exam: Decreased Breath Sounds - Cardiovascular Exam Cardiovascular Exam: REGULAR RHYTHM, +S1, +S2 - GI/Abdominal Exam GI & Abdominal Exam: Soft, Diminished Bowel Sounds - Rectal Exam Rectal Exam: Deferred
[2018-08-11] MEDS: Enoxaparin 40 mg Syringe SC SCH ×2 (05:18→16:52)
[2018-08-11] MEDS: Piperacillin/Tazobact 3.375 GM in Sodium Chloride 100 ML IVPB SCH ×3 (06:01→22:23)
--- NOTE | 2018-08-11 11:18 | CP.PCM.PN ---
Subjective - Date & Time of Evaluation Date of Evaluation: 08/11/18 Time of Evaluation: 07:45 - Subjective Subjective: clinically same Objective - Vital Signs/Intake and Output Vital Signs (last 24 hours): Temp Pulse Resp BP Pulse Ox 98.2 F 81 20 130/70 99 08/11/18 07:45 08/11/18 07:45 08/11/18 07:45 08/11/18 09:45 08/11/18 07:45 Intake and Output: 08/11/18 08/11/18 06:59 18:59 Intake Total 700 Balance 700 - Medications Medications: Current Medications Atenolol (Tenormin) 25 mg PO DAILY [facility] Last Admin: 08/11/18 09:45 Dose: 25 mg Enoxaparin Sodium (Lovenox) 40 mg SC Q12H ZANE Last Admin: 08/11/18 05:18 Dose: 40 mg Furosemide (Lasix) 40 mg IVP DAILY [facility] Last Admin: 08/11/18 09:45 Dose: 40 mg Guaifenesin (Robitussin) 200 mg PO Q4H PRN PRN Reason: Cough and congestion Piperacillin Sod/Tazobactam (Sod 3.375 gm/ Sodium Chloride) 100 mls @ 200 mls/hr IVPB Q8H ZANE; Protocol Last Admin: 08/11/18 06:01 Dose: 200 mls/hr Tramadol HCl (Ultram) 25 mg PO Q6 PRN PRN Reason: Pain, moderate (4-7) Last Admin: 08/10/18 13:38 Dose: 25 mg - Labs Labs: 08/08/18 16:24 08/08/18 16:24 - Constitutional Appears: Well - Head Exam Head Exam: ATRAUMATIC, NORMAL INSPECTION, NORMOCEPHALIC - Eye Exam Eye Exam: EOMI, Normal appearance, PERRL Pupil Exam: NORMAL ACCOMODATION, PERRL - ENT Exam ENT Exam: Mucous Membranes Moist, Normal Exam - Neck Exam Neck Exam: Full ROM, Normal Inspection. absent: Lymphadenopathy - Respiratory Exam Respiratory Exam: Decreased Breath Sounds - Cardiovascular Exam Cardiovascular Exam: REGULAR RHYTHM, +S1, +S2 - GI/Abdominal Exam GI & Abdominal Exam: Soft, Diminished Bowel Sounds - Rectal Exam Rectal Exam: Deferred
[2018-08-11] MEDS: Tramadol 25 mg PO PRN (19:50)
--- NOTE | 2018-08-11 20:06 | CARD ---
APPROVED REPORT Date of service: 08/08/2018 EKG Measurement Heart [id number] <Conclusion> Normal sinus rhythm Normal ECG
[2018-08-12] MEDS: Piperacillin/Tazobact 3.375 GM in Sodium Chloride 100 ML IVPB SCH ×3 (05:19→22:24)
[2018-08-12] MEDS: Enoxaparin 40 mg Syringe SC SCH ×2 (10:10→22:23)
[2018-08-12 11:23] LABS: BASO % 0.4 % (0.0-2.0); EOS # 0.2 K/uL (0.0-0.7); EOS % 2.6 % (0.0-4.0); HEMOGLOBIN 12.4 g/dL (12.0-18.0); LYMPH # 0.9 K/uL (1.0-4.3); LYMPH % 13.4 % (20.0-40.0); MEAN CELL VOLUME 77.4 fL (80.0-94.0); MEAN CORPUSCULAR HEMOGLOBIN 25.8 pg (27.0-31.0); MEAN CORPUSCULAR HGB CONC 33.4 g/dL (33.0-37.0); MEAN PLATELET VOLUME 7.9 fL (7.2-11.7); MONO # 0.7 K/uL (0.0-0.8); MONO % 10.5 % (0.0-10.0); NEUT # 5.1 K/uL (1.8-7.0); NEUT % 73.1 % (50.0-75.0); NRBC % 0.1 % (0.0-2.0); RBC 4.81 Mil/uL (4.40-5.90); RED CELL DISTRIBUTION WIDTH 15.3 % (11.5-14.5); WHITE BLOOD COUNT 6.9 K/uL (4.8-10.8)
[2018-08-12 11:36] LABS: BLOOD UREA NITROGEN 10 mg/dL (9-20); CALCIUM 8.4 mg/dl (8.6-10.4); GFR NON-AFRICAN AMERICAN > 60
--- NOTE | 2018-08-12 17:20 | CP.PCM.PN ---
Subjective - Date & Time of Evaluation Date of Evaluation: 08/12/18 Time of Evaluation: 07:45 - Subjective Subjective: clinically same Objective - Vital Signs/Intake and Output Vital Signs (last 24 hours): Temp Pulse Resp BP Pulse Ox 97.1 F L 79 20 146/84 95 08/12/18 15:00 08/12/18 15:00 08/12/18 15:00 08/12/18 15:00 08/12/18 15:00 Intake and Output: 08/12/18 08/12/18 06:59 18:59 Intake Total 500 Balance 500 - Medications Medications: Current Medications Atenolol (Tenormin) 25 mg PO DAILY [facility] Last Admin: 08/12/18 10:10 Dose: 25 mg Enoxaparin Sodium (Lovenox) 40 mg SC Q12 [facility] Last Admin: 08/12/18 10:10 Dose: 40 mg Furosemide (Lasix) 40 mg IVP DAILY [facility] Last Admin: 08/12/18 10:10 Dose: 40 mg Guaifenesin (Robitussin) 200 mg PO Q4H PRN PRN Reason: Cough and congestion Piperacillin Sod/Tazobactam (Sod 3.375 gm/ Sodium Chloride) 100 mls @ 200 mls/hr IVPB Q8H ZANE; Protocol Last Admin: 08/12/18 13:54 Dose: 200 mls/hr Tramadol HCl (Ultram) 25 mg PO Q6 PRN PRN Reason: Pain, moderate (4-7) Last Admin: 08/11/18 19:50 Dose: 25 mg - Labs Labs: 08/12/18 11:00 08/12/18 11:00 - Constitutional Appears: Well - Head Exam Head Exam: ATRAUMATIC, NORMAL INSPECTION, NORMOCEPHALIC - Eye Exam Eye Exam: EOMI, Normal appearance, PERRL Pupil Exam: NORMAL ACCOMODATION, PERRL - ENT Exam ENT Exam: Mucous Membranes Moist, Normal Exam - Neck Exam Neck Exam: Full ROM, Normal Inspection. absent: Lymphadenopathy - Respiratory Exam Respiratory Exam: Decreased Breath Sounds - Cardiovascular Exam Cardiovascular Exam: REGULAR RHYTHM, +S1, +S2 - GI/Abdominal Exam GI & Abdominal Exam: Soft, Diminished Bowel Sounds - Rectal Exam Rectal Exam: Deferred
[2018-08-13] MEDS: Piperacillin/Tazobact 3.375 GM in Sodium Chloride 100 ML IVPB SCH ×2 (05:12→14:29)
[2018-08-13] MEDS: guaiFENesin 200 mg/10 ml Syrup UD PO PRN ×2 (10:03→15:22)
[2018-08-13] MEDS: Enoxaparin 40 mg Syringe SC SCH (10:03)
[2018-08-13 15:44] VITALS: BP 166/90; PULSE 74; TEMP 98; O2SAT 95
--- NOTE | 2018-08-13 16:45 | CP.PCM.DIS ---
Provider - Provider Date of Admission: 08/08/18 17:49 Attending physician: Jair Todd MD Time Spent in preparation of Discharge (in minutes): 30 Hospital Course - Lab Results Lab Results: Most Recent Lab Values WBC 6.9 K/uL (4.8-10.8) 08/12/18 11:00 RBC 4.81 Mil/uL (4.40-5.90) 08/12/18 11:00 Hgb 12.4 g/dL (12.0-18.0) 08/12/18 11:00 Hct 37.2 % (35.0-51.0) 08/12/18 11:00 MCV 77.4 fL (80.0-94.0) L 08/12/18 11:00 MCH 25.8 pg (27.0-31.0) L 08/12/18 11:00 MCHC 33.4 g/dL (33.0-37.0) 08/12/18 11:00 RDW 15.3 % (11.5-14.5) H 08/12/18 11:00 Plt Count 264 K/uL (130-400) 08/12/18 11:00 MPV 7.9 fL (7.2-11.7) 08/12/18 11:00 Neut % (Auto) 73.1 % (50.0-75.0) 08/12/18 11:00 Lymph % (Auto) 13.4 % (20.0-40.0) L 08/12/18 11:00 [place] % (Auto) 10.5 % (0.0-10.0) H 08/12/18 11:00 Eos % (Auto) 2.6 % (0.0-4.0) 08/12/18 11:00 Baso % (Auto) 0.4 % (0.0-2.0) 08/12/18 11:00 Neut # (Auto) 5.1 K/uL (1.8-7.0) 08/12/18 11:00 Lymph # (Auto) 0.9 K/uL (1.0-4.3) L 08/12/18 11:00 [place] # (Auto) 0.7 K/uL (0.0-0.8) 08/12/18 11:00 Eos # (Auto) 0.2 K/uL (0.0-0.7) 08/12/18 11:00 Baso # (Auto) 0.0 K/uL (0.0-0.2) 08/12/18 11:00 D-Dimer, Quantitative 842 ng/mlDDU (0-243) H 08/08/18 16:24 Sodium 137 mmol/L (132-148) 08/12/18 11:00 Potassium 3.6 mmol/L (3.6-5.2) 08/12/18 11:00 Chloride 99 mmol/L (98-107) 08/12/18 11:00 Carbon Dioxide 28 mmol/L (22-30) 08/12/18 11:00 Anion Gap 14 (10-20) 08/12/18 11:00 BUN 10 mg/dL (9-20) 08/12/18 11:00 Creatinine 0.9 mg/dL (0.8-1.5) 08/12/18 11:00 Est GFR ( Amer) > 60 08/12/18 11:00 Est GFR (Non-Af Amer) > 60 08/12/18 11:00 Random Glucose 109 mg/dL (75-110) 08/12/18 11:00 Calcium 8.4 mg/dl (8.6-10.4) L 08/12/18 11:00 Magnesium 2.0 mg/dL (1.6-2.3) 08/08/18 16:24 Total Bilirubin 0.4 mg/dL (0.2-1.3) 08/08/18 16:24 AST 25 U/L (17-59) 08/08/18 16:24 ALT 18 U/L (21-72) L 08/08/18 16:24 Alkaline Phosphatase 181 U/L (38-126) H 08/08/18 16:24 Troponin I < 0.0120 ng/mL (0.00-0.120) 08/08/18 16:24 NT-Pro-B Natriuret Pep 84.3 pg/mL (0-450) 08/08/18 16:20 Total Protein 7.5 g/dL (6.3-8.3) 08/08/18 16:24 Albumin 4.1 g/dL (3.5-5.0) 08/08/18 16:24 Globulin 3.5 gm/dL (2.2-3.9) 08/08/18 16:24 Albumin/Globulin Ratio 1.2 (1.0-2.1) 08/08/18 16:24 TSH 3rd Generation 2.65 mIU/L (0.46-4.68) 08/08/18 16:24 Urine Color Yellow (YELLOW) 08/08/18 17:50 Urine Clarity Clear (Clear) 08/08/18 17:50 Urine pH 5.0 (5.0-8.0) 08/08/18 17:50 Ur Specific [place] 1.021 (1.003-1.030) 08/08/18 17:50 Urine Protein Negative mg/dL (NEGATIVE) 08/08/18 17:50 Urine Glucose (UA) Normal mg/dL (Normal) 08/08/18 17:50 Urine Ketones Negative mg/dL (NEGATIVE) 08/08/18 17:50 Urine Blood Trace (NEGATIVE) H 08/08/18 17:50 Urine Nitrate Negative (NEGATIVE) 08/08/18 17:50 Urine Bilirubin Negative (NEGATIVE) 08/08/18 17:50 Urine Urobilinogen Normal mg/dL (0.2-1.0) 08/08/18 17:50 Ur Leukocyte Esterase Neg Yousif/uL (Negative) 08/08/18 17:50 Urine WBC (Auto) < 1 /hpf (0-5) 08/08/18 17:50 Urine RBC (Auto) < 1 /hpf (0-3) 08/08/18 17:50 Discharge Exam - Head Exam Head Exam: ATRAUMATIC, NORMAL INSPECTION, NORMOCEPHALIC - Eye Exam Eye Exam: EOMI, Normal appearance, PERRL Pupil Exam: NORMAL ACCOMODATION, PERRL - Respiratory Exam Respiratory Exam: Decreased Breath Sounds - Cardiovascular Exam Cardiovascular Exam: REGULAR RHYTHM, +S1, +S2 - GI/Abdominal Exam GI & Abdominal Exam: Diminished Bowel Sounds, Soft - Rectal Exam Rectal Exam: Deferred Discharge Plan - Discharge Medications Prescriptions: RX: Carvedilol [Coreg] 6.25 mg PO BID #60 tablet Potassium Chloride [K-Dur 20] 20 meq PO DAILY #30 tab Furosemide [Lasix] 40 mg PO BID #60 tab RX: Atenolol [Tenormin] 25 mg PO DAILY #30 tab - Follow Up Plan Condition: FAIR Disposition: HOME/ ROUTINE Instructions: Heart Failure, Adult (DC), Dependent Edema (DC), Carvedilol, Furosemide, Potassium Chloride Referrals: Ky Todd MD [Staff Provider] -
--- NOTE | 2018-08-13 18:03 | PCM.HF ---
Heart Failure Core Measure Beta-Alice Prescribed: Carvedilol
== END 2018-08-13 15:50 | disposition home or self-care (01) | DRG 130 ==
LOC: C.ER 15:33 → C.9E 17:49 → C.5S 22:00 → C.3T 08-10 18:19
PROVIDERS: ADMIT Internal Medicine Nephrology; ATTEND Internal Medicine Nephrology
DX: I87.2 Venous insufficiency (chronic) (peripheral) (principal); I11.0 Hypertensive heart disease with heart failure; I50.9 Heart failure, unspecified; I87.8 Other specified disorders of veins; F17.210 Nicotine dependence, cigarettes, uncomplicated; E66.9 Obesity, unspecified; Z68.45 Body mass index [BMI] 70 or greater, adult

== ENCOUNTER 2018-08-14 11:36 | Emergency (ER) | payer MEDICAID ==
[2018-08-14 11:37] VITALS: BMI 70.4
[2018-08-14 11:53] VITALS: BP 131/78; PULSE 68; RESP 18; TEMP 97.4; O2SAT 98
--- NOTE | 2018-08-14 13:01 | C.PDOC ---
History Of Present Illness 43 yr old male w/ hx of HTN, CHF, anxiety, bronchitis p/w weakness/dizziness. Pt notes one episode of weakness after accidently doubling up on his coreg 6.25mg, KCL 20 meq, and PPI. He denies any unilateral weakness, slurred speech, fall, headache, nausea, vomiting, chest pain, shortness of breath, abdominal pain, constipation, diarrhea, dark or bloody stool. He notes that all him symptoms have now resolved and he is at baseline. He denies any cough, neck stiffness, fever, chills or night sweats. No rashes or easy bruising. No orthopnea, pnd or leg swelling. No depression, SI or HI. He denies any other complaints. Time Seen by Provider: 08/14/18 13:00 Chief Complaint (Nursing): Weakness/Neurological Deficit Past Medical History Vital Signs: Last Vital Signs Temp 97.4 F L 08/14/18 11:48 Pulse 68 08/14/18 11:48 Resp 18 08/14/18 11:48 BP 131/78 08/14/18 11:48 Pulse Ox 98 08/14/18 11:48 - Medical History PMH: Anxiety, Bronchitis, CHF, Depression, HTN, Pneumonia Denies: Chronic Kid[facility] - [facility] Procedures CHANGE PRESSURE DRESSING ON ABDOMINAL WALL (11/16/17) DRAINAGE OF ABDOMINAL WALL, OPEN APPROACH (11/16/17) DRAINAGE OF L PLEURAL CAV WITH DRAIN DEV, PERC APPROACH (11/16/17) DRAINAGE OF LEFT PLEURAL CAVITY, PERCUTANEOUS APPROACH (11/16/17) EXCISION OF ABD SUBCU/FASCIA, OPEN APPROACH (11/16/17) EXCISION OF ABDOMINAL WALL, OPEN APPROACH (11/16/17) EXCISION OF CHEST SUBCU/FASCIA, OPEN APPROACH (11/16/17) INSERT OF INFUSION DEV INTO R CEPHALIC VEIN, PERC APPROACH (07/11/18) INSERTION OF INFUSION DEV INTO SUP VENA CAVA, PERC APPROACH (11/16/17) Family History: States: Unknown Family Hx - Social History Hx Tobacco Use: Yes (light smoker) Hx Alcohol Use: Yes (occ.) Hx Substance Use: Yes (occ.) - Immunization History Hx Tetanus Toxoid Vaccination: No Hx Influenza Vaccination: Yes Hx Pneumococcal Vaccination: Yes Review Of Systems Constitutional: Negative for: Fever, Chills, Weakness Eyes: Negative for: Pain, Vision Change ENT: Negative for: Ear Pain, Ear Discharge, Nose Pain, Nose Congestion, Mouth Pain, Mouth Swelling, Throat Pain, Throat Swelling Cardiovascular: Negative for: Chest Pain, Palpitations Respiratory: Negative for: Cough, Shortness of Breath, Hemoptysis, SOB with Excertion, Pleuritic Pain, Sputum, Wheezing Gastrointestinal: Negative for: Nausea, Vomiting, Abdominal Pain, Constipation, Melena, Hematochezia, Hematemesis, Rectal Pain Genitourinary: Negative for: Dysuria, Frequency, Incontinence, Hematuria, Penile Discharge, Scrotal Pain, Rash, Penile Pain Musculoskeletal: Negative for: Neck Pain, Shoulder Pain, Arm Pain, Back Pain, Hand Pain, Leg Pain Skin: Negative for: Rash, Lesions Neurological: Negative for: Weakness, Numbness, Incoordination, Altered Mental Status, Headache Psych: Negative for: Anxiety, Depression Physical Exam - Physical Exam Appears: Well, Non-toxic, No Acute Distress Skin: Normal Color, Warm Head: Atraumatic, Normacephalic, No Laceration Eye(s): bilateral: Normal Inspection, PERRL, EOMI Nose: Normal Oral Mucosa: Moist Tongue: Normal Appearing Lips: Normal Appearing Gingiva: Normal Appearing Throat: Normal, No Erythema, No Exudate Neck: Normal, Normal ROM, Supple, Other (no meningeal signs) Chest: Symmetrical Cardiovascular: Rhythm Regular Respiratory: Normal Breath Sounds, No Decreased Breath Sounds, No Accessory Muscle Use, No Rales, No Rhonchi, No Stridor Gastrointestinal/Abdominal: Normal Exam, Soft, No Tenderness, No Organomegaly, No Mass, No Distention, No Guarding, No Rebound, No Hernia, No Ascites Rectal: No Deferred, No Normal Exam Back: Normal Inspection, No CVA Tenderness, No Vertebral Tenderness Extremity: Normal ROM Neurological/Psych: Oriented x3, Normal Speech, Normal Cognition, Normal Cranial Nerves, No Cerebellar Signs, Normal Motor Gait: Steady Other Neurological Findings: No Facial Palsy Extremity: Right: No Drift, Left: No Drift, Upper: No Drift, Lower: No Drift ED Course And Treatment - Laboratory Results Result Diagrams: 08/14/18 13:54 08/14/18 13:54 O2 Sat by Pulse Oximetry: 98 Medical Decision Making Medical Decision Makin yr old male w/ hx of HTN, CHF, anxiety, bronchitis p/w weakness/dizziness. Diffuse weakness and lightheadedness described as dizziness which only occured after doubling up on his home coreg, PPI and K. Normal neuro exam. No vertigo or slurred speech or one sided weakness. No chest pain or sob Pending basic labs and reassessment. Pt agreeable in NAD 1440 labs unremarkable repeat neuro exam unremarkable steady gait pt notes he is at baseline educated pt on pill management: pill organizer and watching amounts he takes. Pt is agreeable to f/u w/ PMD pt d/c in nad. Disposition - Disposition Disposition Time: 14:21 Condition: GOOD Forms: [facility] (Maori) - Clinical Impression Clinical Impression: Accidental drug overdose
[2018-08-14 13:58] LABS: BASO % 0.6 % (0.0-2.0); EOS # 0.2 K/uL (0.0-0.7); EOS % 2.5 % (0.0-4.0); HEMOGLOBIN 12.6 g/dL (12.0-18.0); LYMPH # 1.5 K/uL (1.0-4.3); LYMPH % 21.6 % (20.0-40.0); MEAN CELL VOLUME 77.5 fL (80.0-94.0); MEAN CORPUSCULAR HEMOGLOBIN 25.6 pg (27.0-31.0); MEAN CORPUSCULAR HGB CONC 33.1 g/dL (33.0-37.0); MEAN PLATELET VOLUME 7.4 fL (7.2-11.7); MONO # 0.7 K/uL (0.0-0.8); MONO % 9.4 % (0.0-10.0); NEUT # 4.7 K/uL (1.8-7.0); NEUT % 65.9 % (50.0-75.0); RBC 4.91 Mil/uL (4.40-5.90); RED CELL DISTRIBUTION WIDTH 15.4 % (11.5-14.5); WHITE BLOOD COUNT 7.1 K/uL (4.8-10.8)
[2018-08-14 14:11] LABS: ALB/GLOB RATIO 1.1 (1.0-2.1); ALBUMIN 3.9 g/dL (3.5-5.0); ALT/SGPT 37 U/L (21-72); AST/SGOT 40 U/L (17-59); BLOOD UREA NITROGEN 13 mg/dL (9-20); CALCIUM 8.1 mg/dl (8.6-10.4); GFR NON-AFRICAN AMERICAN > 60
== END 2018-08-14 14:36 | disposition home or self-care (01) ==
LOC: C.ER 11:36
DX: T50.991A Poisoning by other drugs, medicaments and biological substances, accidental (unintentional), initial encounter (principal)

== ENCOUNTER 2018-09-12 07:46 | Inpatient (IN) | payer MEDICAID ==
[2018-09-12 07:46] VITALS: BMI 70.4
--- NOTE | 2018-09-12 08:39 | C.PDOC ---
History Of Present Illness 43 y/o morbidly obese male with hx chf, last admitted one month ago, presents to ED with cc of right leg swelling with weeping and urinary difficulties. pt sts he can't bend knee. pt sts he is compliant with medications, however has pills bottles that were filled on 08/13 with remaining pills. denies cp and sob. no fever. Time Seen by Provider: 09/12/18 08:06 Chief Complaint (Nursing): Lower Extremity Problem/Injury History Per: Patient History/Exam Limitations: no limitations Current Symptoms Are (Timing): Worse Severity: Moderate Past Medical History Reviewed: Historical Data, Nursing Documentation, Vital Signs Vital Signs: Last Vital Signs Temp 97.8 F 09/12/18 07:50 Pulse 85 09/12/18 07:50 Resp 20 09/12/18 07:50 BP 163/102 H 09/12/18 07:50 Pulse Ox 98 09/12/18 07:50 - Medical History PMH: Anxiety, Bronchitis, CHF, Depression, HTN, Pneumonia Denies: Chronic Kidney Disease - [facility] Procedures CHANGE PRESSURE DRESSING ON ABDOMINAL WALL (11/16/17) DRAINAGE OF ABDOMINAL WALL, OPEN APPROACH (11/16/17) DRAINAGE OF L PLEURAL CAV WITH DRAIN DEV, PERC APPROACH (11/16/17) DRAINAGE OF LEFT PLEURAL CAVITY, PERCUTANEOUS APPROACH (11/16/17) EXCISION OF ABD SUBCU/FASCIA, OPEN APPROACH (11/16/17) EXCISION OF ABDOMINAL WALL, OPEN APPROACH (11/16/17) EXCISION OF CHEST SUBCU/FASCIA, OPEN APPROACH (11/16/17) INSERT OF INFUSION DEV INTO R CEPHALIC VEIN, PERC APPROACH (07/11/18) INSERTION OF INFUSION DEV INTO SUP VENA CAVA, PERC APPROACH (08/08/18) Family History: States: Unknown Family Hx - Social History Hx Tobacco Use: Yes (light smoker) Hx Alcohol Use: Yes (occ.) Hx Substance Use: Yes (occ.) - Immunization History Hx Tetanus Toxoid Vaccination: No Hx Influenza Vaccination: Yes Hx Pneumococcal Vaccination: Yes Review Of Systems Constitutional: Negative for: Fever, Chills Cardiovascular: Negative for: Chest Pain Respiratory: Positive for: SOB with Excertion. Negative for: Cough, Shortness of Breath Gastrointestinal: Negative for: Abdominal Pain Genitourinary: Positive for: Frequency, Incontinence Skin: Negative for: Rash Neurological: Negative for: Weakness, Numbness Physical Exam - Physical Exam Appears: Non-toxic, No Acute Distress, Other (morbidly obese) Skin: Warm, Dry Head: Atraumatic, Normacephalic Neck: Supple Chest: No Tenderness Cardiovascular: Rhythm Regular, No Murmur Respiratory: No Decreased Breath Sounds, No Rales, No Rhonchi Gastrointestinal/Abdominal: Soft, No Tenderness, No Guarding, No Rebound Extremity: No Normal ROM (dec rom right knee), Pedal Edema (+3 bilateral pitting edema, right >left, with bilateral indurated/hardened skin on lower extremities, tender to right knee, no warmth or erythema. ) Pulses: Left Dorsalis Pedis: Decreased, Right Dorsalis Pedis: Decreased Neurological/Psych: Oriented x3, Normal Speech, Normal Cognition ED Course And Treatment - Laboratory Results Result Diagrams: 09/12/18 09:29 09/12/18 09:29 O2 Sat by Pulse Oximetry: 98 Medical Decision Making Medical Decision Makin43 y/o make with worsening right pedal edema, and pain. labs, ekg, cxr. ddimer. sonogram neg for dvt. discussed with Dr Lomeli, will admit to his service Disposition Discussed With : Ky Todd Doctor Will See Patient In The: Hospital - Disposition Disposition: HOSPITALIZED Disposition Time: 11:47 Condition: STABLE Forms: [facility] (Mongolian) - Clinical Impression Clinical Impression: Peripheral edema, Unable to ambulate
[2018-09-12 09:39] LABS: BASO # 0.1 K/uL (0.0-0.2); BASO % 0.8 % (0.0-2.0); EOS # 0.2 K/uL (0.0-0.7); EOS % 1.9 % (0.0-4.0); HEMOGLOBIN 11.6 g/dL (12.0-18.0); LYMPH # 1.9 K/uL (1.0-4.3); LYMPH % 16.8 % (20.0-40.0); MEAN CELL VOLUME 78.5 fL (80.0-94.0); MEAN CORPUSCULAR HEMOGLOBIN 25.8 pg (27.0-31.0); MEAN CORPUSCULAR HGB CONC 32.8 g/dL (33.0-37.0); MEAN PLATELET VOLUME 8.2 fL (7.2-11.7); MONO # 0.8 K/uL (0.0-0.8); MONO % 6.8 % (0.0-10.0); NEUT # 8.3 K/uL (1.8-7.0); NEUT % 73.7 % (50.0-75.0); RBC 4.51 Mil/uL (4.40-5.90); RED CELL DISTRIBUTION WIDTH 15.6 % (11.5-14.5)
[2018-09-12 09:53] LABS: WHITE BLOOD COUNT 11.3 K/uL (4.8-10.8)
[2018-09-12 09:56] LABS: ALBUMIN 3.7 g/dL (3.5-5.0); ALT/SGPT 13 U/L (21-72); AST/SGOT 28 U/L (17-59); BLOOD UREA NITROGEN 16 mg/dL (9-20); CALCIUM 8.3 mg/dl (8.6-10.4); GFR NON-AFRICAN AMERICAN > 60
[2018-09-12 10:01] LABS: B-TYPE NATRIURETIC PEPTIDE 40.8 pg/mL (0-450)
--- NOTE | 2018-09-12 11:05 | RAD ---
HISTORY: SOB COMPARISON: Chest x-ray performed 08/10/18 TECHNIQUE: Chest, one view. FINDINGS: Examination limited by habitus and hypoinflation. LUNGS: Pulmonary venous congestion versus vascular crowding due to hypoinflation. Bibasilar atelectasis/infiltrates. No significant pleural effusion or definite pneumothorax. Please note that chest x-ray has limited sensitivity for the detection of pulmonary masses. CARDIOVASCULAR: Borderline cardiomegaly. No significant atherosclerotic calcification present. OSSEOUS STRUCTURES: No acute osseous abnormality identified. VISUALIZED UPPER ABDOMEN: Unremarkable. OTHER FINDINGS: None. IMPRESSION: Examination limited by habitus and hypoinflation. Pulmonary venous congestion versus vascular crowding due to hypoinflation. Mild bibasilar atelectasis/infiltrates.
--- NOTE | 2018-09-12 11:08 | RAD ---
PROCEDURE: Right Knee Radiographs. HISTORY: painful flexion COMPARISON: No prior. FINDINGS: Examination markedly limited by habitus. BONES: No acute displaced fracture. JOINTS: No dislocation. JOINT EFFUSION: Cannot be assessed. OTHER FINDINGS: None. IMPRESSION: Examination markedly limited by habitus. As a result, assessment cannot be made for suprapatellar effusion. Degenerative changes. No acute displaced fracture or dislocation identified. If high clinical index of suspicion for acute fracture or large effusion, recommend cross-sectional imaging due to limitations of the study.
--- NOTE | 2018-09-12 15:31 | CP.PCM.HP ---
Past Patient History - Infectious Disease Hx of Infectious Diseases: None - Past Medical History & Family History Past Medical History?: Yes - Past Social History Smoking Status: Light Smoker < 10 Cigarettes Daily - CARDIAC Hx Congestive Heart Failure: Yes Hx Hypertension: Yes - PULMONARY Hx Bronchitis: Yes Hx Pneumonia: Yes - NEUROLOGICAL Hx Neurological Disorder: No - HEENT Hx HEENT Problems: No - RENAL Hx Chronic Kidney Disease: No - ENDOCRINE/METABOLIC Hx Endocrine Disorders: Yes Other/Comment: Obesity as per patient - HEMATOLOGICAL/ONCOLOGICAL Hx Blood Disorders: No - INTEGUMENTARY Hx Dermatological Problems: Yes Hx Cellulitis: Yes - MUSCULOSKELETAL/RHEUMATOLOGICAL Hx Musculoskeletal Disorders: No Hx Falls: Yes - GASTROINTESTINAL Hx Gastrointestinal Disorders: No Other/Comment: abdominal wound, with wound vac in past. - GENITOURINARY/GYNECOLOGICAL Hx Genitourinary Disorders: No - PSYCHIATRIC Hx Anxiety: Yes Hx Depression: Yes Hx Substance Use: Yes (occ.) - SURGICAL HISTORY Hx Surgeries: Yes Other/Comment: abdominal surgery-chest tube placement as per patient. - ANESTHESIA Hx Anesthesia: Yes Hx Anesthesia Reactions: No Hx Malignant Hyperthermia: No Meds Allergies/Adverse Reactions: Allergies Allergy/AdvReac Type Severity Reaction Status Date / Time No Known Allergies Allergy Verified 06/27/18 08:18 Physical Exam - Constitutional Appears: Well - Head Exam Head Exam: ATRAUMATIC, NORMAL INSPECTION, NORMOCEPHALIC - Eye Exam Eye Exam: EOMI, Normal appearance, PERRL Pupil Exam: NORMAL ACCOMODATION, PERRL - ENT Exam ENT Exam: Mucous Membranes Moist, Normal Exam - Neck Exam Neck exam: Positive for: Normal Inspection - Respiratory Exam Respiratory Exam: Decreased Breath Sounds - Cardiovascular Exam Cardiovascular Exam: REGULAR RHYTHM, +S1, +S2 - GI/Abdominal Exam GI & Abdominal Exam: Diminished Bowel Sounds, Soft - Rectal Exam Rectal Exam: Deferred Results - Vital Signs Recent Vital Signs: Last Vital Signs Temp 97.9 F 09/12/18 12:43 Pulse 87 09/12/18 12:43 Resp 20 09/12/18 12:43 BP 127/76 09/12/18 12:43 Pulse Ox 100 09/12/18 12:43 - Labs Result Diagrams: 09/12/18 09:29 09/12/18 09:29 Labs: Laboratory Results - last 24 hr 09/12/18 09/12/18 09/12/18 09:29 09:29 09:58 WBC 11.3 H D RBC 4.51 Hgb 11.6 L Hct 35.4 MCV 78.5 L MCH 25.8 L MCHC 32.8 L RDW 15.6 H Plt Count 262 MPV 8.2 Neut % (Auto) 73.7 Lymph % (Auto) 16.8 L [place] % (Auto) 6.8 Eos % (Auto) 1.9 Baso % (Auto) 0.8 Neut # (Auto) 8.3 H Lymph # (Auto) 1.9 [place] # (Auto) 0.8 Eos # (Auto) 0.2 Baso # (Auto) 0.1 D-Dimer, Quantitative 538 H Sodium 138 Potassium 4.0 Chloride 102 Carbon Dioxide 27 Anion Gap 13 BUN 16 Creatinine 0.8 Est GFR ( Amer) > 60 Est GFR (Non-Af Amer) > 60 Random Glucose 100 Calcium 8.3 L Total Bilirubin 0.6 AST 28 ALT 13 L D Alkaline Phosphatase 144 H D NT-Pro-B Natriuret Pep 40.8 Total Protein 7.5 Albumin 3.7 Globulin 3.8 Albumin/Globulin Ratio 1.0 Assessment & Plan - Assessment and Plan (Free Text) Plan: Coreg Potassium Lasix 80 mg IV every 12 Venous Doppler DuoNeb every 6 Zosyn 3.375 IV every [address] Rome
[2018-09-12 18:48] LABS: URINE BILIRUBIN NEGATIVE (NEGATIVE); URINE BLOOD NEGATIVE (NEGATIVE); URINE CLARITY Clear (Clear); URINE COLOR Colorless (YELLOW); URINE GLUCOSE (UA) NORMAL (Normal); URINE LEUKOCYTE ESTERASE NEG Leu/uL (Negative); URINE PROTEIN NEGATIVE (NEGATIVE); URINE UROBILINOGEN NORMAL mg/dL (0.2-1.0)
[2018-09-12] MEDS: Piperacillin/Tazobact 3.375 GM in Sodium Chloride 100 ML IVPB SCH (19:36)
[2018-09-12] MEDS ORDERED: Enoxaparin 40 mg Syringe SC ONE (22:42)
[2018-09-13] MEDS: Piperacillin/Tazobact 3.375 GM in Sodium Chloride 100 ML IVPB SCH ×4 (02:23→20:00)
[2018-09-13 08:13] LABS: BLOOD UREA NITROGEN 16 mg/dL (9-20); CALCIUM 8.3 mg/dl (8.6-10.4); GFR NON-AFRICAN AMERICAN > 60
[2018-09-13] MEDS: Potassium Chloride 20 mEq ER Tab PO SCH (09:08)
[2018-09-13] MEDS: Enoxaparin 40 mg Syringe SC SCH (09:09)
[2018-09-13] MEDS: Ammonium Lactate 12% Lotion (225 g) EXT SCH ×2 (12:17→17:33)
--- NOTE | 2018-09-13 14:03 | CP.PCM.PN ---
Subjective - Date & Time of Evaluation Date of Evaluation: 09/13/18 Time of Evaluation: 07:30 - Subjective Subjective: clinically same Objective - Vital Signs/Intake and Output Vital Signs (last 24 hours): Temp Pulse Resp BP Pulse Ox 98.7 F 103 H 23 122/71 97 09/13/18 08:00 09/13/18 08:00 09/13/18 08:00 09/13/18 09:07 09/13/18 08:00 Intake and Output: 09/13/18 09/13/18 06:59 18:59 Intake Total 550 Output Total 1999 Balance -1450 - Medications Medications: Current Medications Carvedilol (Coreg) 6.25 mg PO BID [facility] [place] Last Admin: 09/13/18 09:08 Dose: 6.25 mg Enoxaparin Sodium (Lovenox) 40 mg SC DAILY [facility] Last Admin: 09/13/18 09:09 Dose: 40 mg Furosemide (Lasix) 80 mg IVP Q12 [facility] Last Admin: 09/13/18 09:07 Dose: 80 mg Piperacillin Sod/Tazobactam (Sod 3.375 gm/ Sodium Chloride) 100 mls @ 200 mls/hr IVPB Q6H [facility] [place]; Protocol Last Admin: 09/13/18 13:33 Dose: 200 mls/hr Lactic Acid (Lac-Hydrin 12% Lotion (225 G)) 0 gm EXT BID [facility] Last Admin: 09/13/18 12:17 Dose: 1 applic Potassium Chloride (K-Dur 20 Meq Er Tab) 20 meq PO DAILY [facility] Last Admin: 09/13/18 09:08 Dose: 20 meq - Labs Labs: 09/12/18 09:29 09/13/18 07:53 - Constitutional Appears: Well - Head Exam Head Exam: ATRAUMATIC, NORMAL INSPECTION, NORMOCEPHALIC - Eye Exam Eye Exam: EOMI, Normal appearance, PERRL Pupil Exam: NORMAL ACCOMODATION, PERRL - ENT Exam ENT Exam: Mucous Membranes Moist, Normal Exam - Neck Exam Neck Exam: Full ROM, Normal Inspection. absent: Lymphadenopathy - Respiratory Exam Respiratory Exam: Decreased Breath Sounds - Cardiovascular Exam Cardiovascular Exam: REGULAR RHYTHM, +S1, +S2 - GI/Abdominal Exam GI & Abdominal Exam: Soft, Diminished Bowel Sounds - Rectal Exam Rectal Exam: Deferred
--- NOTE | 2018-09-13 14:34 | VASCLAB ---
Date of service: 09/12/2018 PROCEDURE: Right Lower Extremity Venous Duplex Exam. HISTORY: right leg pain and swelling PRIORS: None. TECHNIQUE: Right common femoral, femoral, popliteal and posterior tibial, peroneal and great saphenous veins were evaluated. Flow was assessed with color Doppler, compressibility, assessment of phasic flow and augmentation response. Report prepared by MARLEN Verdugo, RVT FINDINGS: RIGHT: 1. Common Femoral Vein: 1.1. Compressibility - Fully compressible: Thrombus - None: Flow - Phasic: Augmentation -Normal: Reflux - None. 2. Femoral Vein: 2.1. Compressibility - Fully compressible: Thrombus - None: Flow - Phasic: Augmentation -Normal: Reflux - None. 3. Popliteal Vein: 3.1. Compressibility - Fully compressible: Thrombus - None: Flow - Phasic: Augmentation -Normal: Reflux - None. 4. Posterior Tibial Vein: 4.1. Compressibility - : Thrombus - : Flow - : Augmentation -: Reflux - . 5. Peroneal Vein: 5.1. Compressibility - : Thrombus - : Flow - : Augmentation -: Reflux - . 6. Great Saphenous Vein: 6.1. Compressibility - Fully compressible: Thrombus -None: Flow - Phasic: Augmentation - Normal: Reflux - None. OTHER FINDINGS: Technically limited study due to patient body habitus. IMPRESSION: No evidence of deep or superficial vein thrombosis of the right lower extremity with excellent venous flow. Normal valve function noted of the right side. Normal venous flow noted in the left common femoral vein.
--- NOTE | 2018-09-13 20:35 | CP.PCM.CON ---
History of Present Illness - History of Present Illness History of Present Illness: INFECTIOUS DISEASE CONSULT; REASON FOR CONSULT; CELLULITIS RIGHT LOWER EXTREMITY. HPI; 43 y/o morbidly obese male with hx HTN, CHF,HX OF PNEUMONIA /BRONCHITIS last admitted one month ago, presents to ED with cc of right leg swelling with weeping and urinary difficulties. Patient states he can't bend knee. patient also incontinent of urine since he cannot get up in time. pt sts he is compliant with medications, however has pills bottles that were filled on 08/13 with remaining pills. patient denies any fever or chills, denies any chest pain or shortness of breath.Denies any cough or expectoration Infectious disease consult requested by PMD for cellulitis of right lower extremity. Patient presently on IV Zosyn 3.375 every 6 hourly. Patient is homeless. PMH: Anxiety, Bronchitis, CHF, Depression, HTN, Pneumonia Denies: Chronic Kidney Disease - [facility] Procedures CHANGE PRESSURE DRESSING ON ABDOMINAL WALL (11/16/17) DRAINAGE OF ABDOMINAL WALL, OPEN APPROACH (11/16/17) DRAINAGE OF L PLEURAL CAV WITH DRAIN DEV, PERC APPROACH (11/16/17) DRAINAGE OF LEFT PLEURAL CAVITY, PERCUTANEOUS APPROACH (11/16/17) EXCISION OF ABD SUBCU/FASCIA, OPEN APPROACH (11/16/17) EXCISION OF ABDOMINAL WALL, OPEN APPROACH (11/16/17) EXCISION OF CHEST SUBCU/FASCIA, OPEN APPROACH (11/16/17) INSERT OF INFUSION DEV INTO R CEPHALIC VEIN, PERC APPROACH (07/11/18) INSERTION OF INFUSION DEV INTO SUP VENA CAVA, PERC APPROACH (08/08/18) Family History: States: Unknown Family Hx - Social History Hx Tobacco Use: Yes (light smoker) Hx Alcohol Use: Yes (occ.) Hx Substance Use: Yes (occ.) - Immunization History Hx Tetanus Toxoid Vaccination: No Hx Influenza Vaccination: Yes Hx Pneumococcal Vaccination: Yes Review of Systems - Constitutional Constitutional: Weight Gain. absent: Chills, Fever Additional comments: INCREASING IN WEIGHT GAIN. - EENT Eyes: absent: Change in Vision, Floaters Nose/Mouth/Throat: absent: Nasal Congestion, Mouth Lesions - Cardiovascular Cardiovascular: Leg Edema. absent: Chest Pain, Leg Ulcers - Respiratory Respiratory: absent: Cough, Hemoptysis - Gastrointestinal Gastrointestinal: absent: Abdominal Pain, Diarrhea, Nausea, Vomiting - Genitourinary Genitourinary: Urinary Incontinence, Urinary Urgency. absent: Dysuria - Musculoskeletal Musculoskeletal: Joint Swelling (RIGHT KNEE SWELLING.), Limited Range of Motion (RIGHT KNEE PAIN.) - Hematologic/Lymphatic Hematologic: As Per HPI Past Patient History - Infectious Disease Hx of Infectious Diseases: None - Past Medical History & Family History Past Medical History?: Yes - Past Social History Smoking Status: Light Smoker < 10 Cigarettes Daily - CARDIAC Hx Congestive Heart Failure: Yes Hx Hypertension: Yes - PULMONARY Hx Bronchitis: Yes Hx Pneumonia: Yes - NEUROLOGICAL Hx Neurological Disorder: No - HEENT Hx HEENT Problems: No - RENAL Hx Chronic Kidney Disease: No - ENDOCRINE/METABOLIC Hx Endocrine Disorders: Yes Other/Comment: Obesity as per patient - HEMATOLOGICAL/ONCOLOGICAL Hx Blood Disorders: No - INTEGUMENTARY Hx Dermatological Problems: Yes Hx Cellulitis: Yes - MUSCULOSKELETAL/RHEUMATOLOGICAL Hx Musculoskeletal Disorders: No Hx Falls: Yes - GASTROINTESTINAL Hx Gastrointestinal Disorders: No Other/Comment: abdominal wound, with wound vac in past. - GENITOURINARY/GYNECOLOGICAL Hx Genitourinary Disorders: No - PSYCHIATRIC Hx Anxiety: Yes Hx Depression: Yes Hx Substance Use: Yes (occ.) - SURGICAL HISTORY Hx Surgeries: Yes Other/Comment: abdominal surgery-chest tube placement as per patient. - ANESTHESIA Hx Anesthesia: Yes Hx Anesthesia Reactions: No Hx Malignant Hyperthermia: No Meds Allergies/Adverse Reactions: Allergies Allergy/AdvReac Type Severity Reaction Status Date / Time No Known Allergies Allergy Verified 06/27/18 08:18 - Medications Medications: Current Medications Carvedilol (Coreg) 6.25 mg PO BID [facility] Last Admin: 09/13/18 17:32 Dose: 6.25 mg Enoxaparin Sodium (Lovenox) 40 mg SC DAILY [facility] Last Admin: 09/13/18 09:09 Dose: 40 mg Furosemide (Lasix) 80 mg IVP Q12 [facility] Last Admin: 09/13/18 09:07 Dose: 80 mg Piperacillin Sod/Tazobactam (Sod 3.375 gm/ Sodium Chloride) 100 mls @ 200 mls/hr IVPB Q6H [facility]; Protocol Last Admin: 09/13/18 13:33 Dose: 200 mls/hr Lactic Acid (Lac-Hydrin 12% Lotion (225 G)) 0 gm EXT BID [facility] Last Admin: 09/13/18 17:33 Dose: 1 applic Potassium Chloride (K-Dur 20 Meq Er Tab) 20 meq PO DAILY [facility] Last Admin: 09/13/18 09:08 Dose: 20 meq Physical Exam - Constitutional Appears: No Acute Distress, Unkempt - Head Exam Head Exam: NORMAL INSPECTION - Eye Exam Eye Exam: EOMI, PERRL - ENT Exam ENT Exam: Normal Oropharynx - Neck Exam Neck exam: Positive for: Normal Inspection - Respiratory Exam Respiratory Exam: Decreased Breath Sounds, NORMAL BREATHING PATTERN - Cardiovascular Exam Cardiovascular Exam: REGULAR RHYTHM, +S1, +S2 - GI/Abdominal Exam GI & Abdominal Exam: Normal Bowel Sounds, Soft - Extremities Exam Extremities exam: Positive for: pedal edema (2+), pedal pulses present (BILATERAL DORSALIS PEDIS DISTANT BUT PALPABLE. bILATERAL LOWER EXTREMITY WARM.). Negative for: calf tenderness Additional comments: RIGHT LEG SLIGHTLY LARGER THAN THE LEFT LEG ? EFFUSION RT KNEE. - Neurological Exam Neurological exam: Alert, CN II-XII Intact, Oriented x3 - Psychiatric Exam Psychiatric exam: Normal Mood - Skin Skin Exam: Normal Color, Warm Results - Vital Signs Recent Vital Signs: Last Vital Signs Temp 98.1 F 09/13/18 16:00 Pulse 95 H 09/13/18 16:00 Resp 20 09/13/18 16:00 BP 109/65 09/13/18 16:00 Pulse Ox 96 09/13/18 16:33 - Labs Result Diagrams: 09/12/18 09:29 09/13/18 07:53 Labs: Laboratory Results - last 24 hr 09/13/18 07:53 Sodium 137 Potassium 4.1 Chloride 98 Carbon Dioxide 32 H Anion Gap 11 BUN 16 Creatinine 0.8 Est GFR ( Amer) > 60 Est GFR (Non-Af Amer) > 60 Random Glucose 102 Calcium 8.3 L - Imaging and Cardiology Chest x-ray Status: Report reviewed by me (hypoinflation, PVC, mild bibasilar atelectasis /infiltrates.) Assessment & Plan (1) Cellulitis of right lower extremity Status: Acute (2) Osteoarthritis of right knee Status: Acute (3) Morbid obesity Status: Acute (4) Unable to ambulate Status: Acute (5) Obesity hypoventilation syndrome Status: Acute - Assessment and Plan (Free Text) Plan: PLAN; PANCULTURE ESR. CRP URIC ACID RHEUMATOID FACTOR CONTINUE iv zOSYN 3.375 EVERY 6 HOURLY 09/13/18. DUPLEX VENOUS STUDY RIGHT LOWER EXTREMITY R/O DVT. ORTHO EVAL R/O GOUT VS PSEUDOGOUT. PSA. DIETITIAN TO SEE PT. ENCOURAGE LOSS OF WEIGHT/PT.
--- NOTE | 2018-09-13 22:37 | CARD ---
APPROVED REPORT Date of service: 09/12/2018 EKG Measurement Heart [id number] <Conclusion> Normal sinus rhythm Normal ECG
[2018-09-14] MEDS: Piperacillin/Tazobact 3.375 GM in Sodium Chloride 100 ML IVPB SCH ×4 (01:05→20:41)
[2018-09-14] MEDS: Enoxaparin 40 mg Syringe SC SCH (10:10)
[2018-09-14] MEDS: Potassium Chloride 20 mEq ER Tab PO SCH (10:10)
[2018-09-14] MEDS: Ammonium Lactate 12% Lotion (225 g) EXT SCH ×2 (10:11→18:00)
[2018-09-14 12:07] LABS: URIC ACID 6.6 mg/dL (3.5-8.5)
[2018-09-14 12:15] LABS: B-TYPE NATRIURETIC PEPTIDE 51.4 pg/mL (0-450)
--- NOTE | 2018-09-14 21:16 | CP.PCM.PN ---
Subjective - Date & Time of Evaluation Date of Evaluation: 09/14/18 Time of Evaluation: 07:30 - Subjective Subjective: clinically same Objective - Vital Signs/Intake and Output Vital Signs (last 24 hours): Temp Pulse Resp BP Pulse Ox 97.6 F 81 20 114/68 95 09/14/18 15:30 09/14/18 15:30 09/14/18 15:30 09/14/18 15:30 09/14/18 15:30 - Medications Medications: Current Medications Carvedilol (Coreg) 6.25 mg PO BID [facility] Last Admin: 09/14/18 17:49 Dose: 6.25 mg Enoxaparin Sodium (Lovenox) 40 mg SC DAILY [facility] Last Admin: 09/14/18 10:10 Dose: 40 mg Furosemide (Lasix) 80 mg IVP Q12 [facility] Last Admin: 09/14/18 10:10 Dose: 80 mg Piperacillin Sod/Tazobactam (Sod 3.375 gm/ Sodium Chloride) 100 mls @ 200 mls/hr IVPB Q6H [facility]; Protocol Last Admin: 09/14/18 20:41 Dose: 200 mls/hr Lactic Acid (Lac-Hydrin 12% Lotion (225 G)) 0 gm EXT BID [facility] Last Admin: 09/14/18 10:11 Dose: 1 applic Potassium Chloride (K-Dur 20 Meq Er Tab) 20 meq PO DAILY [facility] Last Admin: 09/14/18 10:10 Dose: 20 meq - Labs Labs: 09/12/18 09:29 09/13/18 07:53
--- NOTE | 2018-09-14 23:59 | CP.PCM.PN ---
Subjective - Date & Time of Evaluation Date of Evaluation: 09/14/18 Time of Evaluation: 23:59 - Subjective Subjective: AFEBRILE, C/O RT LEG SWELLING ALSO RT KNEE PAIN. SITTING IN CHAIR. LABS /RADIOLOGY DUPLEX VENOUS -VE DVT. Objective - Vital Signs/Intake and Output Vital Signs (last 24 hours): Temp Pulse Resp BP Pulse Ox 97.9 F 92 H 20 102/67 97 09/14/18 23:57 09/14/18 23:57 09/14/18 23:57 09/14/18 23:57 09/14/18 23:57 Intake and Output: 09/14/18 09/15/18 18:59 06:59 Intake Total 580 Output Total 1350 Balance -770 - Medications Medications: Current Medications Carvedilol (Coreg) 6.25 mg PO BID [facility] Last Admin: 09/14/18 17:49 Dose: 6.25 mg Enoxaparin Sodium (Lovenox) 40 mg SC DAILY [facility] Last Admin: 09/14/18 10:10 Dose: 40 mg Furosemide (Lasix) 80 mg IVP Q12 [facility] Last Admin: 09/14/18 21:25 Dose: 80 mg Piperacillin Sod/Tazobactam (Sod 3.375 gm/ Sodium Chloride) 100 mls @ 200 mls/hr IVPB Q6H [facility]; Protocol Last Admin: 09/14/18 20:41 Dose: 200 mls/hr Lactic Acid (Lac-Hydrin 12% Lotion (225 G)) 0 gm EXT BID [facility] Last Admin: 09/14/18 10:11 Dose: 1 applic Potassium Chloride (K-Dur 20 Meq Er Tab) 20 meq PO DAILY [facility] Last Admin: 09/14/18 10:10 Dose: 20 meq - Labs Labs: 09/12/18 09:29 09/13/18 07:53 - Constitutional Appears: No Acute Distress, Unkempt (MORBIDLY OBESE) - Head Exam Head Exam: NORMAL INSPECTION - Eye Exam Eye Exam: EOMI, PERRL - ENT Exam ENT Exam: Normal Oropharynx - Neck Exam Neck Exam: Normal Inspection - Respiratory Exam Respiratory Exam: Decreased Breath Sounds, NORMAL BREATHING PATTERN - Cardiovascular Exam Cardiovascular Exam: REGULAR RHYTHM, +S1, +S2 - GI/Abdominal Exam GI & Abdominal Exam: Soft, Normal Bowel Sounds (OBESE /SKIN FOLDS) - Extremities Exam Extremities Exam: Calf Tenderness, Joint Swelling (RT KNEE SWOLLEN.+VE WARMTH , SKIN INDURATION 2+ EDEMA), Pedal Edema - Neurological Exam Neurological Exam: Alert, Awake, CN II-XII Intact, Oriented x3 - Psychiatric Exam Psychiatric exam: Normal Mood - Skin Skin Exam: Normal Color, Warm Assessment and Plan (1) Cellulitis of right lower extremity Status: Acute (2) Osteoarthritis of right knee Status: Acute (3) Morbid obesity Status: Acute (4) Unable to ambulate Status: Acute (5) Obesity hypoventilation syndrome Status: Acute - Assessment and Plan (Free Text) Plan: CONTINUE iv zOSYN 3.375 EVERY 6 HOURLY 09/13/18. ORTHO EVAL RT KNEE EFFUSION DIETITIAN TO SEE PT. ENCOURAGE LOSS OF WEIGHT/PT.
[2018-09-15] MEDS: Piperacillin/Tazobact 3.375 GM in Sodium Chloride 100 ML IVPB SCH ×4 (01:05→21:36)
[2018-09-15 08:03] LABS: BASO # 0.1 K/uL (0.0-0.2)
[2018-09-15 08:09] LABS: BASO % 0.7 % (0.0-2.0); EOS # 0.5 K/uL (0.0-0.7); EOS % 4.6 % (0.0-4.0); HEMOGLOBIN 12.7 g/dL (12.0-18.0); LYMPH # 1.2 K/uL (1.0-4.3); LYMPH % 10.6 % (20.0-40.0); MEAN CELL VOLUME 78.3 fL (80.0-94.0); MEAN CORPUSCULAR HEMOGLOBIN 25.2 pg (27.0-31.0); MEAN CORPUSCULAR HGB CONC 32.2 g/dL (33.0-37.0); MEAN PLATELET VOLUME 8.8 fL (7.2-11.7); MONO # 0.8 K/uL (0.0-0.8); MONO % 7.1 % (0.0-10.0); NEUT # 8.5 K/uL (1.8-7.0); NRBC % 0.1 % (0.0-2.0); RBC 5.03 Mil/uL (4.40-5.90); RED CELL DISTRIBUTION WIDTH 15.9 % (11.5-14.5)
[2018-09-15 08:18] LABS: BLOOD UREA NITROGEN 15 mg/dL (9-20); CALCIUM 8.4 mg/dl (8.6-10.4); GFR NON-AFRICAN AMERICAN > 60
[2018-09-15] MEDS: Potassium Chloride 20 mEq ER Tab PO SCH (09:52)
[2018-09-15] MEDS: Enoxaparin 40 mg Syringe SC SCH (09:53)
[2018-09-15] MEDS: Ammonium Lactate 12% Lotion (225 g) EXT SCH ×2 (10:16→18:05)
--- NOTE | 2018-09-15 12:21 | CP.PCM.PN ---
Subjective - Date & Time of Evaluation Date of Evaluation: 09/15/18 Time of Evaluation: 07:30 - Subjective Subjective: clinically same Objective - Vital Signs/Intake and Output Vital Signs (last 24 hours): Temp Pulse Resp BP Pulse Ox 98.1 F 91 H 20 125/77 95 09/15/18 07:00 09/15/18 07:00 09/15/18 07:00 09/15/18 09:52 09/15/18 07:00 Intake and Output: 09/15/18 09/15/18 06:59 18:59 Intake Total 1040 Output Total 2550 Balance -1510 - Medications Medications: Current Medications Carvedilol (Coreg) 6.25 mg PO BID [facility] Last Admin: 09/15/18 09:52 Dose: 6.25 mg Enoxaparin Sodium (Lovenox) 40 mg SC DAILY [facility] Last Admin: 09/15/18 09:53 Dose: 40 mg Furosemide (Lasix) 80 mg IVP Q12 [facility] Last Admin: 09/15/18 09:52 Dose: 80 mg Piperacillin Sod/Tazobactam (Sod 3.375 gm/ Sodium Chloride) 100 mls @ 200 mls/hr IVPB Q6H [facility]; Protocol Last Admin: 09/15/18 08:29 Dose: 200 mls/hr Lactic Acid (Lac-Hydrin 12% Lotion (225 G)) 0 gm EXT BID [facility] Last Admin: 09/15/18 10:16 Dose: 1 applic Potassium Chloride (K-Dur 20 Meq Er Tab) 20 meq PO DAILY [facility] Last Admin: 09/15/18 09:52 Dose: 20 meq - Labs Labs: 09/15/18 07:50 09/15/18 07:50 - Constitutional Appears: Well - Head Exam Head Exam: ATRAUMATIC, NORMAL INSPECTION, NORMOCEPHALIC - Eye Exam Eye Exam: EOMI, Normal appearance, PERRL Pupil Exam: NORMAL ACCOMODATION, PERRL - ENT Exam ENT Exam: Mucous Membranes Moist, Normal Exam - Neck Exam Neck Exam: Full ROM, Normal Inspection. absent: Lymphadenopathy - Respiratory Exam Respiratory Exam: Decreased Breath Sounds - Cardiovascular Exam Cardiovascular Exam: REGULAR RHYTHM, +S1, +S2 - GI/Abdominal Exam GI & Abdominal Exam: Soft, Diminished Bowel Sounds - Rectal Exam Rectal Exam: Deferred
[2018-09-15] MEDS ORDERED: Amoxicillin-Clav 875-125 mg Tab PO SCH (23:45)
[2018-09-16] MEDS: Amoxicillin-Clav 875-125 mg Tab PO SCH ×2 (05:34→18:05)
[2018-09-16] MEDS: Enoxaparin 40 mg Syringe SC SCH (09:28)
[2018-09-16] MEDS: Potassium Chloride 20 mEq ER Tab PO SCH (09:29)
[2018-09-16] MEDS: Ammonium Lactate 12% Lotion (225 g) EXT SCH ×2 (09:37→18:06)
--- NOTE | 2018-09-16 19:26 | CP.PCM.PN ---
Subjective - Date & Time of Evaluation Date of Evaluation: 09/16/18 Time of Evaluation: 07:30 - Subjective Subjective: clinically same Objective - Vital Signs/Intake and Output Vital Signs (last 24 hours): Temp Pulse Resp BP Pulse Ox 97.9 F 88 20 95/59 L 95 09/16/18 16:00 09/16/18 16:00 09/16/18 16:00 09/16/18 16:00 09/16/18 16:00 Intake and Output: 09/16/18 09/17/18 18:59 06:59 Intake Total 700 Balance 700 - Medications Medications: Current Medications Amoxicillin/Clavulanate Potassium (Augmentin 875 Mg-125 Mg Tab) 1 tab PO Q12H [facility]; Protocol Last Admin: 09/16/18 18:05 Dose: 1 tab Carvedilol (Coreg) 6.25 mg PO BID [facility] Last Admin: 09/16/18 18:04 Dose: Not Given Enoxaparin Sodium (Lovenox) 40 mg SC DAILY [facility] Last Admin: 09/16/18 09:28 Dose: 40 mg Furosemide (Lasix) 80 mg IVP Q12 [facility] Last Admin: 09/15/18 09:52 Dose: 80 mg Furosemide (Lasix) 80 mg PO Q12 [facility] Last Admin: 09/16/18 09:29 Dose: 80 mg Lactic Acid (Lac-Hydrin 12% Lotion (225 G)) 0 gm EXT BID [facility] Last Admin: 09/16/18 18:06 Dose: 1 applic Potassium Chloride (K-Dur 20 Meq Er Tab) 20 meq PO DAILY [facility] Last Admin: 09/16/18 09:29 Dose: 20 meq - Labs Labs: 09/15/18 07:50 09/15/18 07:50
--- NOTE | 2018-09-16 23:57 | CP.PCM.PN ---
Subjective - Date & Time of Evaluation Date of Evaluation: 09/16/18 Time of Evaluation: 23:57 - Subjective Subjective: AFEBRILE OOB ON CARDIAC CHAIR. RT LEG WITH SWELLING AND INDURATION IV INFILTRATED. CASE DISCUSSED WITH STAFF. DC IV ABX , START PO AUGMENTIN 875MG PO BID X 10 DAYS . NO NEED FOR PICCLINE. Objective - Vital Signs/Intake and Output Vital Signs (last 24 hours): Temp Pulse Resp BP Pulse Ox 97.9 F 88 20 110/70 95 09/16/18 16:00 09/16/18 16:00 09/16/18 16:00 09/16/18 21:46 09/16/18 16:00 Intake and Output: 09/16/18 09/17/18 18:59 06:59 Intake Total 700 300 Output Total 600 Balance 700 -300 - Medications Medications: Current Medications Amoxicillin/Clavulanate Potassium (Augmentin 875 Mg-125 Mg Tab) 1 tab PO Q12H [facility]; Protocol Last Admin: 09/16/18 18:05 Dose: 1 tab Carvedilol (Coreg) 6.25 mg PO BID [facility] Last Admin: 09/16/18 18:04 Dose: Not Given Enoxaparin Sodium (Lovenox) 40 mg SC DAILY [facility] Last Admin: 09/16/18 09:28 Dose: 40 mg Furosemide (Lasix) 80 mg IVP Q12 [facility] Last Admin: 09/15/18 09:52 Dose: 80 mg Furosemide (Lasix) 80 mg PO Q12 [facility] Last Admin: 09/16/18 21:46 Dose: 80 mg Lactic Acid (Lac-Hydrin 12% Lotion (225 G)) 0 gm EXT BID [facility] Last Admin: 09/16/18 18:06 Dose: 1 applic Potassium Chloride (K-Dur 20 Meq Er Tab) 20 meq PO DAILY [facility] Last Admin: 09/16/18 09:29 Dose: 20 meq - Labs Labs: 09/15/18 07:50 09/15/18 07:50 - Constitutional Appears: No Acute Distress (MORBIDLY OBESE) - Head Exam Head Exam: NORMAL INSPECTION - Eye Exam Eye Exam: EOMI, PERRL - ENT Exam ENT Exam: Normal Oropharynx - Neck Exam Neck Exam: Normal Inspection - Respiratory Exam Respiratory Exam: Decreased Breath Sounds, NORMAL BREATHING PATTERN - Cardiovascular Exam Cardiovascular Exam: REGULAR RHYTHM, +S1, +S2 - GI/Abdominal Exam GI & Abdominal Exam: Soft, Normal Bowel Sounds. absent: Tenderness - Extremities Exam Extremities Exam: Pedal Edema (2+). absent: Calf Tenderness - Neurological Exam Neurological Exam: Alert, Awake, CN II-XII Intact, Oriented x3 - Psychiatric Exam Psychiatric exam: Normal Mood - Skin Skin Exam: Normal Color, Warm Assessment and Plan (1) Cellulitis of right lower extremity Status: Acute (2) Osteoarthritis of right knee Status: Acute (3) Morbid obesity Status: Acute (4) Unable to ambulate Status: Acute (5) Obesity hypoventilation syndrome Status: Acute - Assessment and Plan (Free Text) Plan: DC iv zOSYN 3.375 EVERY 6 HOURLY 09/13/18. ( IV INFILTRATED ) PO AUGMENTIN 875MG PO BID X 10 DAYS.( 09/16/18 ) ORTHO EVAL RT KNEE EFFUSION IF PERSIST. PT MOST LIKELY HAS OA . DIETITIAN TO SEE PT. ENCOURAGE LOSS OF WEIGHT/PT AT BEDSIDE.
[2018-09-17] MEDS: Amoxicillin-Clav 875-125 mg Tab PO SCH ×2 (05:52→17:18)
[2018-09-17] MEDS: Enoxaparin 40 mg Syringe SC SCH (10:07)
[2018-09-17] MEDS: Potassium Chloride 20 mEq ER Tab PO SCH (10:08)
[2018-09-17] MEDS: Ammonium Lactate 12% Lotion (225 g) EXT SCH ×2 (10:10→17:19)
--- NOTE | 2018-09-17 12:12 | CP.PCM.PN ---
Subjective - Date & Time of Evaluation Date of Evaluation: 09/17/18 Time of Evaluation: 07:30 - Subjective Subjective: clinically same Objective - Vital Signs/Intake and Output Vital Signs (last 24 hours): Temp Pulse Resp BP Pulse Ox 98.2 F 78 20 139/84 98 09/17/18 07:52 09/17/18 07:52 09/17/18 07:52 09/17/18 10:08 09/17/18 07:52 Intake and Output: 09/17/18 09/17/18 06:59 18:59 Intake Total 500 Output Total 1400 Balance -900 - Medications Medications: Current Medications Amoxicillin/Clavulanate Potassium (Augmentin 875 Mg-125 Mg Tab) 1 tab PO Q12H [facility]; Protocol Last Admin: 09/17/18 05:52 Dose: 1 tab Carvedilol (Coreg) 6.25 mg PO BID [facility] Last Admin: 09/17/18 10:13 Dose: 6.25 mg Enoxaparin Sodium (Lovenox) 40 mg SC DAILY [facility] Last Admin: 09/17/18 10:07 Dose: 40 mg Furosemide (Lasix) 80 mg IVP Q12 [facility] Last Admin: 09/17/18 10:09 Dose: Not Given Furosemide (Lasix) 80 mg PO Q12 [facility] Last Admin: 09/17/18 10:08 Dose: 80 mg Lactic Acid (Lac-Hydrin 12% Lotion (225 G)) 0 gm EXT BID [facility] Last Admin: 09/17/18 10:10 Dose: 1 applic Potassium Chloride (K-Dur 20 Meq Er Tab) 20 meq PO DAILY [facility] Last Admin: 09/17/18 10:08 Dose: 20 meq - Labs Labs: 09/15/18 07:50 09/15/18 07:50
[2018-09-18] MEDS: Amoxicillin-Clav 875-125 mg Tab PO SCH ×2 (06:00→17:12)
[2018-09-18] MEDS: Potassium Chloride 20 mEq ER Tab PO SCH (10:32)
[2018-09-18] MEDS: Enoxaparin 40 mg Syringe SC SCH (10:33)
[2018-09-18] MEDS: Ammonium Lactate 12% Lotion (225 g) EXT SCH ×2 (10:34→17:15)
--- NOTE | 2018-09-18 15:47 | CP.PCM.PN ---
Subjective - Date & Time of Evaluation Date of Evaluation: 09/18/18 Time of Evaluation: 07:30 - Subjective Subjective: clinically same Objective - Vital Signs/Intake and Output Vital Signs (last 24 hours): Temp Pulse Resp BP Pulse Ox 98.0 F 88 20 134/66 96 09/18/18 08:23 09/18/18 08:23 09/18/18 08:23 09/18/18 10:33 09/18/18 08:23 Intake and Output: 09/18/18 09/18/18 06:59 18:59 Intake Total 240 480 Output Total 900 Balance -660 480 - Medications Medications: Current Medications Amoxicillin/Clavulanate Potassium (Augmentin 875 Mg-125 Mg Tab) 1 tab PO Q12H [facility]; Protocol Last Admin: 09/18/18 06:00 Dose: 1 tab Carvedilol (Coreg) 6.25 mg PO BID [facility] Last Admin: 09/18/18 10:32 Dose: 6.25 mg Enoxaparin Sodium (Lovenox) 40 mg SC DAILY [facility] Last Admin: 09/18/18 10:33 Dose: 40 mg Furosemide (Lasix) 80 mg IVP Q12 [facility] Last Admin: 09/18/18 10:34 Dose: Not Given Furosemide (Lasix) 80 mg PO Q12 [facility] Last Admin: 09/18/18 10:33 Dose: 80 mg Lactic Acid (Lac-Hydrin 12% Lotion (225 G)) 0 gm EXT BID [facility] Last Admin: 09/18/18 10:34 Dose: 1 applic Potassium Chloride (K-Dur 20 Meq Er Tab) 20 meq PO DAILY [facility] Last Admin: 09/18/18 10:32 Dose: 20 meq - Labs Labs: 09/15/18 07:50 09/15/18 07:50
[2018-09-19] MEDS: Amoxicillin-Clav 875-125 mg Tab PO SCH ×2 (05:35→17:48)
[2018-09-19 12:23] LABS: INR 1.2; PROTHROMBIN TIME 12.7 SECONDS (9.7-12.2)
[2018-09-19 12:51] LABS: BASO # 0.1 K/uL (0.0-0.2); BASO % 0.6 % (0.0-2.0); EOS # 0.2 K/uL (0.0-0.7); EOS % 1.8 % (0.0-4.0); HEMOGLOBIN 13.8 g/dL (12.0-18.0); LYMPH # 2.6 K/uL (1.0-4.3); LYMPH % 29.8 % (20.0-40.0); MEAN CELL VOLUME 78.7 fL (80.0-94.0); MEAN CORPUSCULAR HEMOGLOBIN 25.7 pg (27.0-31.0); MEAN CORPUSCULAR HGB CONC 32.6 g/dL (33.0-37.0); MONO # 0.6 K/uL (0.0-0.8); MONO % 6.9 % (0.0-10.0); NEUT # 5.2 K/uL (1.8-7.0); NEUT % 60.9 % (50.0-75.0); NRBC % 0.1 % (0.0-2.0); RBC 5.39 Mil/uL (4.40-5.90); RED CELL DISTRIBUTION WIDTH 15.4 % (11.5-14.5); WHITE BLOOD COUNT 8.6 K/uL (4.8-10.8)
--- NOTE | 2018-09-19 14:19 | CP.PCM.PN ---
Subjective - Date & Time of Evaluation Date of Evaluation: 09/19/18 Time of Evaluation: 14:16 - Subjective Subjective: Patient seen and examined at bedside. No overnight reported. He denies any fever, chills, chest pain, abdominal pain, SOB, lower ext. pain, nausea vomiting, changes in bowel habits or urinary symptoms. Objective - Vital Signs/Intake and Output Vital Signs (last 24 hours): Temp Pulse Resp BP Pulse Ox 97.9 F 77 20 131/86 96 09/19/18 07:36 09/19/18 07:36 09/19/18 07:36 09/19/18 07:36 09/19/18 07:36 Intake and Output: 09/19/18 09/19/18 06:59 18:59 Intake Total 750 Output Total 1650 Balance -900 - Medications Medications: Current Medications Amoxicillin/Clavulanate Potassium (Augmentin 875 Mg-125 Mg Tab) 1 tab PO Q12H [facility]; Protocol Last Admin: 09/19/18 05:35 Dose: 1 tab Carvedilol (Coreg) 6.25 mg PO BID [facility] Last Admin: 09/18/18 17:12 Dose: 6.25 mg Enoxaparin Sodium (Lovenox) 40 mg SC DAILY [facility] Last Admin: 09/18/18 10:33 Dose: 40 mg Furosemide (Lasix) 80 mg PO Q12 [facility] Last Admin: 09/18/18 22:14 Dose: 80 mg Lactic Acid (Lac-Hydrin 12% Lotion (225 G)) 0 gm EXT BID [facility] Last Admin: 09/18/18 17:15 Dose: 1 applic Potassium Chloride (K-Dur 20 Meq Er Tab) 20 meq PO DAILY [facility] Last Admin: 09/18/18 10:32 Dose: 20 meq - Labs Labs: 09/19/18 13:10 09/15/18 07:50 PT 12.7 SECONDS (9.7-12.2) H 09/19/18 07:03 INR 1.2 09/19/18 07:03 APTT 37 SECONDS (21-34) H 09/19/18 07:03 - Constitutional Appears: Well, Non-toxic, No Acute Distress - Head Exam Head Exam: ATRAUMATIC, NORMAL INSPECTION, NORMOCEPHALIC - Eye Exam Eye Exam: EOMI - Respiratory Exam Respiratory Exam: Clear to Ausculation Bilateral, NORMAL BREATHING PATTERN - Cardiovascular Exam Cardiovascular Exam: RRR, +S1, +S2 - GI/Abdominal Exam GI & Abdominal Exam: Soft, Normal Bowel Sounds. absent: Tenderness - Extremities Exam Extremities Exam: Pedal Edema. absent: Tenderness - Neurological Exam Neurological Exam: Alert, Awake, Oriented x3 - Psychiatric Exam Psychiatric exam: Normal Affect, Normal Mood - Skin Skin Exam: Dry, Intact, Normal Color, Warm Assessment and Plan - Assessment and Plan (Free Text) Assessment: 43 year old male with PMHx of HTN, possible CHF, Pneumonia, and Bronchitis admitted for evaluation and treatment of b/l lower extremity edema with tenderness. Plan: B/L Lowere Ext. Edema R>L Likely VAMSHI vs Lipedema ID on consult for suspected cellulitis, Recs Appreciated. Low Suspicion for Cellulitis; No warmth, no erythema, afebrile, no Leukocytosis, Venous Doppler (Right Lower Ext.) (Admission): Excellent valve function and no DVT. Rheumatoid Factor - PENDING Patient will need need physical therapy with focus on manual drainage of edema, exercise and gait training Compression Stockings as outpatient Consider UNNA boots as inpatient to reduce swelling Leg elevation. Meds: Augmentin PO Q12H until 09/26/17. Lasix 80mg PO Q12H HTN Meds: Coreg 6.25mg PO BID Consider DC'ing Coreg and starting Amlodipine and thiazide diuretic. VAMSHI Likely the cause of his leg swelling. Patient will need outpatient sleep study Patient Should be started on CPAP upon completing study. Obesity (Class III) Calorie Restriction Toilet Attendant Referral, Help Appreciated. Outpatient evaluation by bariatrician. Consider pharmacological weight loss options (Ex: Orlistat, Phentermine, Lucaserine, liraglutide) Insomnia Likely due to VAMSHI Meds: Benadryl HS PRN Hx of CHF Low suspicion for CHF. Patient had negative BNP on admission, No JVD, Normal EF on 10/2017 ECHO, No wall motion abnormalities noted on ECHO, no orthopnea, no dysnea on exertion. Consider repeat ECHO, will likely be poor study due to body habitus. Lower Extremity Edema likely from VAMSHI Proph Lovenox 40 Daily Dispo: Will begin discharge planning (Likely tomorrow). PT recommends Home w/Services but patient does not have a home. I believe patient will benefit from being in a facility that can provide intensive physical therapy and help with his weight loss. Patient would like cane upon discharge. I believe he could benefit from 4 point cane.
[2018-09-19 14:59] LABS: ALB/GLOB RATIO 1.1 (1.0-2.1); ALBUMIN 4.3 g/dL (3.5-5.0); ALT/SGPT 29 U/L (21-72); AST/SGOT 32 U/L (17-59); BLOOD UREA NITROGEN 15 mg/dL (9-20); CALCIUM 8.8 mg/dl (8.6-10.4); GFR NON-AFRICAN AMERICAN > 60
--- NOTE | 2018-09-19 15:10 | CP.PCM.PN ---
Subjective - Date & Time of Evaluation Date of Evaluation: 09/19/18 Time of Evaluation: 07:30 - Subjective Subjective: clinically same Objective - Vital Signs/Intake and Output Vital Signs (last 24 hours): Temp Pulse Resp BP Pulse Ox 97.9 F 77 20 131/86 96 09/19/18 07:36 09/19/18 07:36 09/19/18 07:36 09/19/18 07:36 09/19/18 07:36 Intake and Output: 09/19/18 09/19/18 06:59 18:59 Intake Total 750 600 Output Total 1650 Balance -900 600 - Medications Medications: Current Medications Amoxicillin/Clavulanate Potassium (Augmentin 875 Mg-125 Mg Tab) 1 tab PO Q12H [facility]; Protocol Stop: 09/25/18 06:01 Last Admin: 09/19/18 05:35 Dose: 1 tab Carvedilol (Coreg) 6.25 mg PO BID [facility] Last Admin: 09/18/18 17:12 Dose: 6.25 mg Enoxaparin Sodium (Lovenox) 40 mg SC DAILY [facility] Last Admin: 09/18/18 10:33 Dose: 40 mg Furosemide (Lasix) 80 mg PO Q12 [facility] Last Admin: 09/18/18 22:14 Dose: 80 mg Lactic Acid (Lac-Hydrin 12% Lotion (225 G)) 0 gm EXT BID [facility] Last Admin: 09/18/18 17:15 Dose: 1 applic Potassium Chloride (K-Dur 20 Meq Er Tab) 20 meq PO DAILY [facility] Last Admin: 09/18/18 10:32 Dose: 20 meq - Labs Labs: 09/19/18 13:10 09/19/18 14:18 PT 12.7 SECONDS (9.7-12.2) H 09/19/18 07:03 INR 1.2 09/19/18 07:03 APTT 37 SECONDS (21-34) H 09/19/18 07:03
--- NOTE | 2018-09-19 18:11 | CP.PCM.PN ---
Subjective - Date & Time of Evaluation Date of Evaluation: 09/19/18 Time of Evaluation: 18:11 - Subjective Subjective: AFEBRILE , IMPROVING HOMELESS CASE DISCUSSED WITH MEDICAL TEAM . SOCIAL SERVICE TO SEE PT. ARRANGE FOR OUT PT PHYSICAL RX. WEIGHT LOSS PROGRAMME. Objective - Vital Signs/Intake and Output Vital Signs (last 24 hours): Temp Pulse Resp BP Pulse Ox 97.9 F 77 20 131/86 96 09/19/18 07:36 09/19/18 07:36 09/19/18 07:36 09/19/18 07:36 09/19/18 07:36 Intake and Output: 09/19/18 09/19/18 06:59 18:59 Intake Total 750 600 Output Total 1650 Balance -900 600 - Medications Medications: Current Medications Amoxicillin/Clavulanate Potassium (Augmentin 875 Mg-125 Mg Tab) 1 tab PO Q12H [facility]; Protocol Stop: 09/25/18 06:01 Last Admin: 09/19/18 17:48 Dose: 1 tab Carvedilol (Coreg) 6.25 mg PO BID [facility] Last Admin: 09/19/18 18:00 Dose: 6.25 mg Enoxaparin Sodium (Lovenox) 40 mg SC DAILY [facility] Last Admin: 09/18/18 10:33 Dose: 40 mg Furosemide (Lasix) 80 mg PO Q12 [facility] Last Admin: 09/18/18 22:14 Dose: 80 mg Lactic Acid (Lac-Hydrin 12% Lotion (225 G)) 0 gm EXT BID [facility] Last Admin: 09/18/18 17:15 Dose: 1 applic Potassium Chloride (K-Dur 20 Meq Er Tab) 20 meq PO DAILY [facility] Last Admin: 09/18/18 10:32 Dose: 20 meq - Labs Labs: 09/19/18 13:10 09/19/18 14:18 PT 12.7 SECONDS (9.7-12.2) H 09/19/18 07:03 INR 1.2 09/19/18 07:03 APTT 37 SECONDS (21-34) H 09/19/18 07:03 - Constitutional Appears: No Acute Distress - Head Exam Head Exam: NORMAL INSPECTION - Eye Exam Eye Exam: Normal appearance - ENT Exam ENT Exam: Normal Oropharynx - Neck Exam Neck Exam: Normal Inspection - Respiratory Exam Respiratory Exam: Decreased Breath Sounds, NORMAL BREATHING PATTERN - Cardiovascular Exam Cardiovascular Exam: REGULAR RHYTHM, +S1, +S2 - GI/Abdominal Exam GI & Abdominal Exam: Soft, Normal Bowel Sounds - Extremities Exam Extremities Exam: Normal Capillary Refill (IMPROVED CELLULITUS/ PERIPHERAL EDEMA), Pedal Edema. absent: Calf Tenderness - Neurological Exam Neurological Exam: Awake, CN II-XII Intact, Oriented x3 - Psychiatric Exam Psychiatric exam: Normal Mood - Skin Skin Exam: Normal Color, Warm Assessment and Plan (1) Cellulitis of right lower extremity Status: Acute (2) Osteoarthritis of right knee Status: Acute (3) Morbid obesity Status: Acute (4) Unable to ambulate Status: Acute (5) Obesity hypoventilation syndrome Status: Acute - Assessment and Plan (Free Text) Plan: PO AUGMENTIN 875MG PO BID X 10 DAYS.( 09/16/18 ) DIETITIAN TO SEE PT. ENCOURAGE LOSS OF WEIGHT/ PT OPD. CASE DISCUSSED AT LENGTH WITH MEDICAL TEAM. REFER TO A [facility]ERTIARY [facility]ENTRE FOR BARIATRIC PROGRAMME/ AND LOSS OF WEIGHT
[2018-09-20] MEDS: Amoxicillin-Clav 875-125 mg Tab PO SCH (06:12)
[2018-09-20] MEDS: Potassium Chloride 20 mEq ER Tab PO SCH (10:19)
[2018-09-20] MEDS: Enoxaparin 40 mg Syringe SC SCH (10:19)
[2018-09-20] MEDS: Ammonium Lactate 12% Lotion (225 g) EXT SCH (10:25)
[2018-09-20 12:43] VITALS: BP 118/75; PULSE 60; RESP 20; TEMP 97.4; O2SAT 98
--- NOTE | 2018-09-20 13:43 | CP.PCM.PN ---
Subjective - Date & Time of Evaluation Date of Evaluation: 09/20/18 Time of Evaluation: 07:30 - Subjective Subjective: clinically same Objective - Vital Signs/Intake and Output Vital Signs (last 24 hours): Temp Pulse Resp BP Pulse Ox 97.4 F L 60 20 118/75 98 09/20/18 07:00 09/20/18 07:00 09/20/18 07:00 09/20/18 10:19 09/20/18 07:00 Intake and Output: 09/20/18 09/20/18 06:59 18:59 Intake Total 400 240 Output Total 800 650 Balance -400 -410 - Medications Medications: Current Medications Amoxicillin/Clavulanate Potassium (Augmentin 875 Mg-125 Mg Tab) 1 tab PO Q12H [facility]; Protocol Stop: 09/25/18 06:01 Last Admin: 09/20/18 06:12 Dose: 1 tab Carvedilol (Coreg) 6.25 mg PO BID [facility] Last Admin: 09/20/18 10:19 Dose: 6.25 mg Enoxaparin Sodium (Lovenox) 40 mg SC DAILY [facility] Last Admin: 09/20/18 10:19 Dose: 40 mg Furosemide (Lasix) 80 mg PO Q12 [facility] Last Admin: 09/20/18 10:19 Dose: 80 mg Lactic Acid (Lac-Hydrin 12% Lotion (225 G)) 0 gm EXT BID [facility] Last Admin: 09/20/18 10:25 Dose: 1 applic Potassium Chloride (K-Dur 20 Meq Er Tab) 20 meq PO DAILY [facility] Last Admin: 09/20/18 10:19 Dose: 20 meq - Labs Labs: 09/19/18 13:10 09/19/18 14:18 PT 12.7 SECONDS (9.7-12.2) H 09/19/18 07:03 INR 1.2 09/19/18 07:03 APTT 37 SECONDS (21-34) H 09/19/18 07:03
== END 2018-09-20 16:20 | disposition home or self-care (01) | DRG 277 ==
LOC: C.ER 07:46 → C.3T 11:44 → OBSVTOIN 09-14 14:52
PROVIDERS: ADMIT Internal Medicine Nephrology; ATTEND Internal Medicine Nephrology
DX: L03.115 Cellulitis of right lower limb (principal); I11.0 Hypertensive heart disease with heart failure; I50.9 Heart failure, unspecified; E66.2 Morbid (severe) obesity with alveolar hypoventilation; M17.11 Unilateral primary osteoarthritis, right knee; F17.210 Nicotine dependence, cigarettes, uncomplicated; Z68.45 Body mass index [BMI] 70 or greater, adult; Z87.01 Personal history of pneumonia (recurrent); Z59.0 Homelessness

== ENCOUNTER 2018-10-23 07:32 | Observation (INO) | payer MEDICAID ==
[2018-10-23 07:32] VITALS: BMI 70.4
[2018-10-23] MEDS ORDERED: Albuterol-Ipratrop 3 mg / 0.5 (3 ml) UD INH STA (08:49)
[2018-10-23] MEDS ORDERED: Albuterol-Ipratrop 3 mg / 0.5 (3 ml) UD ONE (09:07)
[2018-10-23 09:19] LABS: BASO # 0.1 K/uL (0.0-0.2); BASO % 0.7 % (0.0-2.0); EOS # 0.2 K/uL (0.0-0.7); EOS % 3.3 % (0.0-4.0); LYMPH # 1.6 K/uL (1.0-4.3); LYMPH % 21.7 % (20.0-40.0); MEAN CELL VOLUME 78.9 fL (80.0-94.0); MEAN CORPUSCULAR HEMOGLOBIN 25.7 pg (27.0-31.0); MEAN CORPUSCULAR HGB CONC 32.5 g/dL (33.0-37.0); MEAN PLATELET VOLUME 7.9 fL (7.2-11.7); MONO # 0.8 K/uL (0.0-0.8); MONO % 10.4 % (0.0-10.0); NEUT # 4.8 K/uL (1.8-7.0); NEUT % 63.9 % (50.0-75.0); RBC 4.67 Mil/uL (4.40-5.90); RED CELL DISTRIBUTION WIDTH 16.6 % (11.5-14.5); WHITE BLOOD COUNT 7.4 K/uL (4.8-10.8)
--- NOTE | 2018-10-23 09:24 | C.PDOC ---
History Of Present Illness 43 y/o morbidly obese male with history of presents to the ED for medical evaluation of productive cough x 6 days. He states that he was hospitalized last year and is concerned that it could be Pneumonia. He states his cough produ davis yellow/white sputum. He denies any fever, chills, headache, dizziness, N/V/D, and chest pain but admits to SOB, nasal congestion, rhinorrhea, and abdominal pain only when he coughs. He mentions drinking tea and using cough drops for relief. Time Seen by Provider: 10/23/18 07:52 Chief Complaint (Nursing): Cough, Cold, Congestion History Per: Patient History/Exam Limitations: no limitations Onset/Duration Of Symptoms: Days (6) Current Symptoms Are (Timing): Still Present Severity: Moderate Past Medical History Reviewed: Historical Data, Nursing Documentation, Vital Signs Vital Signs: Last Vital Signs Temp 98 F 10/23/18 07:46 Pulse 86 10/23/18 07:46 Resp 20 10/23/18 07:46 BP 136/69 10/23/18 07:46 Pulse Ox 97 10/23/18 07:46 - Medical History PMH: Anxiety, Bronchitis, CHF, COPD, Depression, HTN, Peripheral Edema, Pneumonia Denies: Chronic Kidney Disease - [facility] Procedures CHANGE PRESSURE DRESSING ON ABDOMINAL WALL (11/16/17) DRAINAGE OF ABDOMINAL WALL, OPEN APPROACH (11/16/17) DRAINAGE OF L PLEURAL CAV WITH DRAIN DEV, PERC APPROACH (11/16/17) DRAINAGE OF LEFT PLEURAL CAVITY, PERCUTANEOUS APPROACH (11/16/17) EXCISION OF ABD SUBCU/FASCIA, OPEN APPROACH (11/16/17) EXCISION OF ABDOMINAL WALL, OPEN APPROACH (11/16/17) EXCISION OF CHEST SUBCU/FASCIA, OPEN APPROACH (11/16/17) INSERT OF INFUSION DEV INTO R CEPHALIC VEIN, PERC APPROACH (07/11/18) INSERTION OF INFUSION DEV INTO SUP VENA CAVA, PERC APPROACH (08/08/18) Family History: States: Unknown Family Hx - Social History Hx Tobacco Use: Yes (light smoker) Hx Alcohol Use: Yes Hx Substance Use: Yes - Immunization History Hx Tetanus Toxoid Vaccination: No Hx Influenza Vaccination: No Hx Pneumococcal Vaccination: Yes Review Of Systems Constitutional: Negative for: Fever, Chills, Sweats ENT: Positive for: Nose Discharge, Nose Congestion Cardiovascular: Negative for: Chest Pain Respiratory: Positive for: Cough, Shortness of Breath Gastrointestinal: Negative for: Nausea, Vomiting, Abdominal Pain, Diarrhea Neurological: Negative for: Headache, Dizziness Physical Exam - Physical Exam Appears: Well, Non-toxic, No Acute Distress Skin: Normal Color, Warm, Dry Head: Atraumatic, Normacephalic, No Tenderness Eye(s): bilateral: Normal Inspection, PERRL Ear(s): Bilateral: TM Obscured By Wax Nose: Flaring Oral Mucosa: Moist Throat: No Erythema Neck: Normal ROM, Supple Chest: Symmetrical Cardiovascular: Rhythm Regular Respiratory: Wheezing Gastrointestinal/Abdominal: Bowel Sounds, Soft, No Tenderness Back: No CVA Tenderness Extremity: Pedal Edema, No Calf Tenderness Neurological/Psych: Oriented x3, Normal Speech, Normal Cognition, Normal Sensati on ED Course And Treatment - Laboratory Results Result Diagrams: 10/23/18 09:10 10/23/18 09:10 O2 Sat by Pulse Oximetry: 97 - Other Rad cxr X-Ray: Viewed By Me, Read By Radiologist Interpretation: Accession No. : [id number]. Patient Name / ID : EVELYNE HURLEY / [id number]. Exam Date : 10/23/2018 08:35:04 ( Approved ). Study Comment : Sex / Age : M / 43Y. Creator : katie patterson. Dictator : Juanis Orozco MD. Dehorner : Salvager Helper : Juanis Orozco MD. Approver2 : Report Date : 10/23/2018 08:50:43. My Comment : . HISTORY: Pneumonia. COMPARISON: Chest x-ray performed 09/12/18. TECHNIQUE: Chest PA and lateral. FINDINGS: Examination limited by habitus. LUNGS: Mild left basilar atelectasis/infiltrate. Please note that chest x-ray has limited sensitivity for the detection of pulmonary masses. PLEURA: No significant pleural effusion identified. No definite pneumothorax . CARDIOVASCULAR: Heart size appears within normal limits. No atherosclerotic calcification present. OSSEOUS STRUCTURES: No acute osseous abnormality identified. VISUALIZED UPPER ABDOMEN: Elevation of the right hemidiaphragm. OTHER FINDINGS: None. IMPRESSION: Mild left basilar atelectasis/infiltrate. Elevation of the right hemidiaphragm. Medical Decision Making Medical Decision Making: A/P: 1. Acute Bronchitis 2. Wheezing 3. Pedal Edema - CXR and Labs reviewed - D/W with PCP, Dr. Mauri Todd; patient will be admitted under his service - Dr. Mauri Todd will prescribe appropriate antibiotics but patient to continue Duonebs q6hrs - patient is aware of plan and is in agreement Disposition Discussed With Dr.: Ky Todd Doctor Will See Patient In The: Hospital Counseled Patient/Family Regarding: Studies Performed, Diagnosis, Need For Followup - Disposition Disposition: HOME/ ROUTINE Disposition Time: 10:00 Condition: IMPROVED - Clinical Impression Clinical Impression: Acute bronchitis, Wheezing, Pedal edema - PA / GROUP TESTER / Resident Statement MD/DO has reviewed & agrees with the documentation as recorded. Decision To Admit - Pt Status Changed To: Hospital Disposition Of: Observation - . Bed Request Type: Regular Admitting Physician: Ky Todd (10am) Patient Diagnosis: Acute bronchitis, Pedal edema, Wheezing
[2018-10-23 09:33] LABS: ALB/GLOB RATIO 1.1 (1.0-2.1); ALBUMIN 3.7 g/dL (3.5-5.0); BLOOD UREA NITROGEN 11 mg/dL (9-20); CALCIUM 8.2 mg/dl (8.6-10.4); GFR NON-AFRICAN AMERICAN > 60
[2018-10-23 09:34] LABS: ALT/SGPT 11 U/L (21-72); AST/SGOT 33 U/L (17-59)
--- NOTE | 2018-10-23 10:29 | RAD ---
HISTORY: Pneumonia COMPARISON: Chest x-ray performed 09/12/18 TECHNIQUE: Chest PA and lateral FINDINGS: Examination limited by habitus. LUNGS: Mild left basilar atelectasis/infiltrate. Please note that chest x-ray has limited sensitivity for the detection of pulmonary masses. PLEURA: No significant pleural effusion identified. No definite pneumothorax . CARDIOVASCULAR: Heart size appears within normal limits. No atherosclerotic calcification present. OSSEOUS STRUCTURES: No acute osseous abnormality identified. VISUALIZED UPPER ABDOMEN: Elevation of the right hemidiaphragm. OTHER FINDINGS: None. IMPRESSION: Mild left basilar atelectasis/infiltrate. Elevation of the right hemidiaphragm.
--- NOTE | 2018-10-23 14:59 | CP.PCM.HP ---
History of Present Illness - History of Present Illness History of Present Illness: 43-year-old male patient with past medical history of COPD, HTN, CHF, morbidly obese presents to the ED with productive cough since 6 days yellow/white sputum associated with S OB, nasal congestion, when he coughs, relieved by drinking tea and cough drops. Patient was hospitalized last year for similar symptoms. No history of fever, chills, headache, N, V, D, chest pain. Present on Admission - Present on Admission Any Indicators Present on Admission: No Past Patient History - Infectious Disease Hx of Infectious Diseases: None - Past Medical History & Family History Past Medical History?: Yes - Past Social History Smoking Status: Light Smoker < 10 Cigarettes Daily - CARDIAC Hx Congestive Heart Failure: Yes Hx Hypertension: Yes Hx Peripheral Edema: Yes - PULMONARY Hx Bronchitis: Yes Hx Chronic Obstructive Pulmonary Disease (COPD): Yes Hx Pneumonia: Yes - NEUROLOGICAL Hx Neurological Disorder: No - HEENT Hx HEENT Problems: No - RENAL Hx Chronic Kidney Disease: No - ENDOCRINE/METABOLIC Hx Endocrine Disorders: Yes Other/Comment: Obesity as per patient - HEMATOLOGICAL/ONCOLOGICAL Hx Blood Disorders: No - INTEGUMENTARY Hx Dermatological Problems: Yes Hx Cellulitis: Yes - MUSCULOSKELETAL/RHEUMATOLOGICAL Hx Musculoskeletal Disorders: No Hx Falls: Yes - GASTROINTESTINAL Hx Gastrointestinal Disorders: No Other/Comment: abdominal wound, with wound vac in past. - GENITOURINARY/GYNECOLOGICAL Hx Genitourinary Disorders: No - PSYCHIATRIC Hx Anxiety: Yes Hx Depression: Yes Hx Substance Use: Yes - SURGICAL HISTORY Hx Surgeries: Yes Other/Comment: abdominal sx, chest tube to left lung. - ANESTHESIA Hx Anesthesia: Yes Hx Anesthesia Reactions: No Hx Malignant Hyperthermia: No Meds Home Medications: Home Medication List Medication Instructions Recorded Confirmed Type Azithromycin [Z-Ej] 250 mg PO DAILY #6 tab 10/27/18 Rx Methylprednisolone [Medrol Dose 4 mg PO DAILY #21 mg 10/27/18 Rx Pack (21 tabs)] Montelukast [Singulair] 10 mg PO DAILY 30 Days tab 10/27/18 Rx amLODIPine [Norvasc] 5 mg PO DAILY 30 Days tab 10/27/18 Rx Allergies/Adverse Reactions: Allergies Allergy/AdvReac Type Severity Reaction Status Date / Time No Known Allergies Allergy Verified 06/27/18 08:18 Physical Exam - Constitutional Appears: Well - Head Exam Head Exam: ATRAUMATIC, NORMAL INSPECTION, NORMOCEPHALIC - Eye Exam Eye Exam: EOMI, Normal appearance, PERRL Pupil Exam: NORMAL ACCOMODATION, PERRL - ENT Exam ENT Exam: Mucous Membranes Moist, Normal Exam - Neck Exam Neck exam: Positive for: Normal Inspection - Respiratory Exam Respiratory Exam: Decreased Breath Sounds - Cardiovascular Exam Cardiovascular Exam: REGULAR RHYTHM, +S1, +S2 - GI/Abdominal Exam GI & Abdominal Exam: Diminished Bowel Sounds, Soft - Rectal Exam Rectal Exam: Deferred Results - Vital Signs Recent Vital Signs: Last Vital Signs Temp 98.9 F 10/23/18 12:20 Pulse 86 10/23/18 12:20 Resp 20 10/23/18 12:20 BP 127/78 10/23/18 12:20 Pulse Ox 97 10/23/18 14:01 - Labs Result Diagrams: 10/23/18 09:10 10/23/18 09:10 Labs: Laboratory Results - last 24 hr 10/23/18 10/23/18 09:10 09:10 WBC 7.4 RBC 4.67 Hgb 12.0 Hct 36.9 MCV 78.9 L MCH 25.7 L MCHC 32.5 L RDW 16.6 H Plt Count 260 D MPV 7.9 Neut % (Auto) 63.9 Lymph % (Auto) 21.7 Randolph % (Auto) 10.4 H Eos % (Auto) 3.3 Baso % (Auto) 0.7 Neut # (Auto) 4.8 Lymph # (Auto) 1.6 Randolph # (Auto) 0.8 Eos # (Auto) 0.2 Baso # (Auto) 0.1 Sodium 136 Potassium 3.7 Chloride 101 Carbon Dioxide 28 Anion Gap 11 BUN 11 Creatinine 0.7 L Est GFR ( Amer) > 60 Est GFR (Non-Af Amer) > 60 Random Glucose 103 Calcium 8.2 L Total Bilirubin 0.4 AST 33 ALT 11 L D Alkaline Phosphatase 136 H Total Protein 7.0 Albumin 3.7 Globulin 3.3 Albumin/Globulin Ratio 1.1
[2018-10-23] MEDS ORDERED: Albuterol HFA 90 mcg/actuation (8 g) IH PRN (17:09)
[2018-10-23] MEDS: Albuterol-Ipratrop 3 mg / 0.5 (3 ml) UD INH SCH (19:40)
[2018-10-23] MEDS ORDERED: Albuterol-Ipratrop 3 mg / 0.5 (3 ml) UD INH SCH (20:00)
[2018-10-23] MEDS: MethylPREDNISolone 40 mg Vial IVP SCH (21:23)
[2018-10-24] MEDS: Albuterol-Ipratrop 3 mg / 0.5 (3 ml) UD INH SCH ×4 (02:00→19:32)
[2018-10-24] MEDS: MethylPREDNISolone 40 mg Vial IVP SCH ×3 (05:20→21:17)
[2018-10-24] MEDS: Pantoprazole 40 mg EC Tab PO SCH (10:35)
[2018-10-24] MEDS: Enoxaparin 40 mg Syringe SC SCH (10:35)
[2018-10-24] MEDS: Potassium Chloride 20 mEq ER Tab PO SCH (10:35)
[2018-10-24] MEDS: Azithromycin 500 MG in Sodium Chloride 0.9% 250 ML IVPB SCH (11:26)
--- NOTE | 2018-10-24 19:37 | CP.PCM.PN ---
Subjective - Date & Time of Evaluation Date of Evaluation: 10/24/18 Time of Evaluation: 11:30 - Subjective Subjective: clinically same Objective - Vital Signs/Intake and Output Vital Signs (last 24 hours): Temp Pulse Resp BP Pulse Ox 97.6 F 89 18 137/77 96 10/24/18 15:30 10/24/18 15:30 10/24/18 15:30 10/24/18 15:30 10/24/18 19:11 Intake and Output: 10/24/18 10/25/18 18:59 06:59 Intake Total 720 Balance 720 - Medications Medications: Current Medications Albuterol (Ventolin Hfa 90 Mcg/Actuation (8 G)) 90 puff IH RQID PRN PRN Reason: Wheezing Albuterol/Ipratropium (Duoneb 3 Mg/0.5 Mg (3 Ml) Ud) 3 ml INH RQ6 [facility] Last Admin: 10/24/18 19:32 Dose: 3 ml Carvedilol (Coreg) 6.25 mg PO BID [facility] Last Admin: 10/24/18 17:55 Dose: 6.25 mg Enoxaparin Sodium (Lovenox) 40 mg SC DAILY [facility] Last Admin: 10/24/18 10:35 Dose: 40 mg Furosemide (Lasix) 40 mg IVP DAILY [facility] Last Admin: 10/24/18 11:34 Dose: 40 mg Azithromycin 500 mg/ Sodium (Chloride) 250 mls @ 250 mls/hr IVPB DAILY [facility]; Protocol Last Admin: 10/24/18 11:26 Dose: 250 mls/hr Influenza Virus Vaccine (Flucelvax Quad [id number] Syr) 60 mcg IM .ONCE ONE Stop: 10/25/18 14:01 Methylprednisolone (Solu-Medrol) 40 mg IVP Q8 [facility] Last Admin: 10/24/18 13:50 Dose: 40 mg Montelukast Sodium (Singulair) 10 mg PO DAILY [facility] Last Admin: 10/24/18 10:35 Dose: 10 mg Pantoprazole Sodium (Protonix Ec Tab) 40 mg PO DAILY [facility] Last Admin: 10/24/18 10:35 Dose: 40 mg Potassium Chloride (K-Dur 20 Meq Er Tab) 20 meq PO DAILY [facility] Last Admin: 10/24/18 10:35 Dose: 20 meq - Labs Labs: 10/23/18 09:10 10/23/18 09:10 - Constitutional Appears: Well - Head Exam Head Exam: ATRAUMATIC, NORMAL INSPECTION, NORMOCEPHALIC - Eye Exam Eye Exam: EOMI, Normal appearance, PERRL Pupil Exam: NORMAL ACCOMODATION, PERRL - ENT Exam ENT Exam: Mucous Membranes Moist, Normal Exam - Neck Exam Neck Exam: Full ROM, Normal Inspection. absent: Lymphadenopathy - Respiratory Exam Respiratory Exam: Decreased Breath Sounds - Cardiovascular Exam Cardiovascular Exam: REGULAR RHYTHM, +S1, +S2 - GI/Abdominal Exam GI & Abdominal Exam: Soft, Diminished Bowel Sounds - Rectal Exam Rectal Exam: Deferred
[2018-10-25] MEDS: Albuterol-Ipratrop 3 mg / 0.5 (3 ml) UD INH SCH ×5 (01:24→20:18)
[2018-10-25] MEDS: MethylPREDNISolone 40 mg Vial IVP SCH ×3 (06:33→22:03)
[2018-10-25] MEDS: Pantoprazole 40 mg EC Tab PO SCH (09:37)
[2018-10-25] MEDS: Potassium Chloride 20 mEq ER Tab PO SCH (09:37)
[2018-10-25] MEDS: Enoxaparin 40 mg Syringe SC SCH (09:38)
[2018-10-25] MEDS: Azithromycin 500 MG in Sodium Chloride 0.9% 250 ML IVPB SCH (12:01)
[2018-10-25] MEDS ORDERED: Influenza Vaccine 60 mcg/0.5 mL SYR (4YR UP) IM ONE (14:00)
--- NOTE | 2018-10-25 17:52 | CP.PCM.PN ---
Subjective - Date & Time of Evaluation Date of Evaluation: 10/25/18 Time of Evaluation: 11:15 - Subjective Subjective: clinically same Objective - Vital Signs/Intake and Output Vital Signs (last 24 hours): Temp Pulse Resp BP Pulse Ox 97.4 F L 84 20 150/78 90 L 10/25/18 16:02 10/25/18 16:02 10/25/18 16:02 10/25/18 16:02 10/25/18 16:02 - Medications Medications: Current Medications Albuterol (Ventolin Hfa 90 Mcg/Actuation (8 G)) 90 puff IH RQID PRN PRN Reason: Wheezing Albuterol/Ipratropium (Duoneb 3 Mg/0.5 Mg (3 Ml) Ud) 3 ml INH RQ6 [facility] Last Admin: 10/25/18 14:13 Dose: 3 ml Carvedilol (Coreg) 6.25 mg PO BID [facility] Last Admin: 10/25/18 17:33 Dose: 6.25 mg Enoxaparin Sodium (Lovenox) 40 mg SC DAILY [facility] Last Admin: 10/25/18 09:38 Dose: 40 mg Furosemide (Lasix) 40 mg IVP DAILY [facility] Last Admin: 10/25/18 09:38 Dose: 40 mg Azithromycin 500 mg/ Sodium (Chloride) 250 mls @ 250 mls/hr IVPB DAILY [facility]; Protocol Last Admin: 10/25/18 12:01 Dose: 250 mls/hr Methylprednisolone (Solu-Medrol) 40 mg IVP Q8 [facility] Last Admin: 10/25/18 13:55 Dose: 40 mg Montelukast Sodium (Singulair) 10 mg PO DAILY [facility] Last Admin: 10/25/18 09:37 Dose: 10 mg Pantoprazole Sodium (Protonix Ec Tab) 40 mg PO DAILY [facility] Last Admin: 10/25/18 09:37 Dose: 40 mg Potassium Chloride (K-Dur 20 Meq Er Tab) 20 meq PO DAILY [facility] Last Admin: 10/25/18 09:37 Dose: 20 meq - Labs Labs: 10/23/18 09:10 10/23/18 09:10 - Constitutional Appears: Well - Head Exam Head Exam: ATRAUMATIC, NORMAL INSPECTION, NORMOCEPHALIC - Eye Exam Eye Exam: EOMI, Normal appearance, PERRL Pupil Exam: NORMAL ACCOMODATION, PERRL - ENT Exam ENT Exam: Mucous Membranes Moist, Normal Exam - Neck Exam Neck Exam: Full ROM, Normal Inspection. absent: Lymphadenopathy - Respiratory Exam Respiratory Exam: Decreased Breath Sounds - Cardiovascular Exam Cardiovascular Exam: REGULAR RHYTHM, +S1, +S2 - GI/Abdominal Exam GI & Abdominal Exam: Soft, Diminished Bowel Sounds - Rectal Exam Rectal Exam: Deferred
[2018-10-26] MEDS: Albuterol-Ipratrop 3 mg / 0.5 (3 ml) UD INH SCH ×4 (02:00→19:12)
[2018-10-26] MEDS: MethylPREDNISolone 40 mg Vial IVP SCH ×3 (06:39→22:09)
[2018-10-26] MEDS: Potassium Chloride 20 mEq ER Tab PO SCH (09:53)
[2018-10-26] MEDS: Enoxaparin 40 mg Syringe SC SCH (09:53)
[2018-10-26] MEDS: Pantoprazole 40 mg EC Tab PO SCH (09:53)
[2018-10-26] MEDS: Azithromycin 500 MG in Sodium Chloride 0.9% 250 ML IVPB SCH (12:00)
--- NOTE | 2018-10-26 19:33 | CP.PCM.PN ---
Subjective - Date & Time of Evaluation Date of Evaluation: 10/26/18 Time of Evaluation: 09:30 - Subjective Subjective: clinically same Objective - Vital Signs/Intake and Output Vital Signs (last 24 hours): Temp Pulse Resp BP Pulse Ox 97.5 F L 80 20 139/76 97 10/26/18 15:43 10/26/18 15:43 10/26/18 15:43 10/26/18 15:43 10/26/18 15:43 Intake and Output: 10/26/18 10/27/18 18:59 06:59 Intake Total 500 Output Total 1000 Balance -500 - Medications Medications: Current Medications Albuterol (Ventolin Hfa 90 Mcg/Actuation (8 G)) 90 puff IH RQID PRN PRN Reason: Wheezing Albuterol/Ipratropium (Duoneb 3 Mg/0.5 Mg (3 Ml) Ud) 3 ml INH RQ6 [facility] Last Admin: 10/26/18 19:12 Dose: 3 ml Carvedilol (Coreg) 6.25 mg PO BID [facility] Last Admin: 10/26/18 18:01 Dose: 6.25 mg Enoxaparin Sodium (Lovenox) 40 mg SC DAILY [facility] Last Admin: 10/26/18 09:53 Dose: 40 mg Furosemide (Lasix) 40 mg IVP DAILY [facility] Last Admin: 10/26/18 09:54 Dose: 40 mg Azithromycin 500 mg/ Sodium (Chloride) 250 mls @ 250 mls/hr IVPB DAILY [facility]; Protocol Last Admin: 10/26/18 12:00 Dose: 250 mls/hr Methylprednisolone (Solu-Medrol) 40 mg IVP Q8 [facility] Last Admin: 10/26/18 13:20 Dose: 40 mg Montelukast Sodium (Singulair) 10 mg PO DAILY [facility] Last Admin: 10/26/18 09:53 Dose: 10 mg Pantoprazole Sodium (Protonix Ec Tab) 40 mg PO DAILY [facility] Last Admin: 10/26/18 09:53 Dose: 40 mg Potassium Chloride (K-Dur 20 Meq Er Tab) 20 meq PO DAILY [facility] Last Admin: 10/26/18 09:53 Dose: 20 meq - Labs Labs: 10/23/18 09:10 10/23/18 09:10
[2018-10-27 00:46] VITALS: TEMP 98
[2018-10-27] MEDS: Albuterol-Ipratrop 3 mg / 0.5 (3 ml) UD INH SCH ×3 (02:31→13:12)
[2018-10-27] MEDS: MethylPREDNISolone 40 mg Vial IVP SCH (05:28)
[2018-10-27 08:11] VITALS: PULSE 82; RESP 95; O2SAT 95
[2018-10-27] MEDS: Pantoprazole 40 mg EC Tab PO SCH (09:43)
[2018-10-27] MEDS: Enoxaparin 40 mg Syringe SC SCH (09:44)
[2018-10-27] MEDS: Potassium Chloride 20 mEq ER Tab PO SCH (09:44)
[2018-10-27 09:45] VITALS: BP 160/90
[2018-10-27] MEDS: Azithromycin 500 MG in Sodium Chloride 0.9% 250 ML IVPB SCH (09:48)
[2018-10-27] MEDS ORDERED: MethylPREDNISolone 40 mg Vial IVP SCH ×2 (10:00→18:00)
--- NOTE | 2018-10-27 12:21 | CP.PCM.PN ---
Subjective - Date & Time of Evaluation Date of Evaluation: 10/27/18 Time of Evaluation: 12:21 - Subjective Subjective: PATIENT SEEN AND EXAMINED AT THE BEDSIDE Objective - Vital Signs/Intake and Output Vital Signs (last 24 hours): Temp Pulse Resp BP Pulse Ox 98.0 F 82 95 H 160/90 H 95 10/27/18 07:07 10/27/18 07:07 10/27/18 07:07 10/27/18 09:44 10/27/18 08:00 Intake and Output: 10/27/18 10/27/18 06:59 18:59 Intake Total 500 Output Total 800 Balance -300 - Medications Medications: Current Medications Albuterol (Ventolin Hfa 90 Mcg/Actuation (8 G)) 90 puff IH RQID PRN PRN Reason: Wheezing Albuterol/Ipratropium (Duoneb 3 Mg/0.5 Mg (3 Ml) Ud) 3 ml INH RQ6 [facility] Last Admin: 10/27/18 07:31 Dose: 3 ml Carvedilol (Coreg) 6.25 mg PO BID [facility] Last Admin: 10/27/18 09:44 Dose: 6.25 mg Enoxaparin Sodium (Lovenox) 40 mg SC DAILY [facility] Last Admin: 10/27/18 09:44 Dose: 40 mg Furosemide (Lasix) 40 mg IVP DAILY [facility] Last Admin: 10/27/18 09:44 Dose: 40 mg Azithromycin 500 mg/ Sodium (Chloride) 250 mls @ 250 mls/hr IVPB DAILY [facility]; Protocol Last Admin: 10/27/18 09:48 Dose: 250 mls/hr Methylprednisolone (Solu-Medrol) 40 mg IVP Q12H [facility] Montelukast Sodium (Singulair) 10 mg PO DAILY [facility] Last Admin: 10/27/18 09:43 Dose: 10 mg Pantoprazole Sodium (Protonix Ec Tab) 40 mg PO DAILY [facility] Last Admin: 10/27/18 09:43 Dose: 40 mg Potassium Chloride (K-Dur 20 Meq Er Tab) 20 meq PO DAILY [facility] Last Admin: 10/27/18 09:44 Dose: 20 meq - Labs Labs: 10/23/18 09:10 10/23/18 09:10 Assessment and Plan - Assessment and Plan (Free Text) Assessment: FOLLOW UP WITH DR Leonides JAMES IN HIS OFFICE -----CALL FOR APPOINTMENT CONTINUE HOME MEDICATION NEW PRESCRIPTION GIVEN NORVASC 5 MG PO DAILY SINGULAIR ONE TAB DAILY [facility] AND MEDROL DOSE PACK GIVEN ACTIVITY TOLERATED CALL DR Leonides JAMES OR GO TO THE EMERGENCY ROOM IF SYMPTOM RETURN OR WORSENING
== END 2018-10-27 14:22 | disposition home or self-care (01) ==
LOC: C.ER 07:32 → C.9E 10:20 → C.6T 13:59 → C.9E 14:08 → C.6T 14:51
PROVIDERS: ADMIT Internal Medicine Nephrology; ATTEND Internal Medicine Nephrology
DX: J44.0 Chronic obstructive pulmonary disease with (acute) lower respiratory infection (principal); J20.9 Acute bronchitis, unspecified; I11.0 Hypertensive heart disease with heart failure; I50.9 Heart failure, unspecified; E66.01 Morbid (severe) obesity due to excess calories; F17.210 Nicotine dependence, cigarettes, uncomplicated; F41.9 Anxiety disorder, unspecified; F32.9 Major depressive disorder, single episode, unspecified; Z87.01 Personal history of pneumonia (recurrent); Z79.899 Other long term (current) drug therapy
CPT/HCPCS: 71046; 80053; 85025; 94150; 94640; 96365; 96366; 96372; 96375; 96376; 97110; 97161; 99285; G0378; G8978; G8979; G8980; J0456; J1650; J1940; J2920; J7050

== ENCOUNTER 2018-11-17 14:48 | Inpatient (IN) | payer MEDICAID ==
[2018-11-17 14:49] VITALS: BMI 70.4
--- NOTE | 2018-11-17 15:38 | C.PDOC ---
History Of Present Illness 43 y/o male comes in to the emergency department complaining of cough, sneezing, chest congestion, and leg swelling. Patient reports he would occasionally have shortness of breath. He states he gets diarrhea but otherwise denies fever, vomiting, or abdominal pain. Patient reports he finished the lasix that was given to him a week ago and hasnt taken any medications since. He also complains of a rash under his left breast for the past week. Time Seen by Provider: 11/17/18 15:03 Chief Complaint (Nursing): Lower Extremity Problem/Injury History Per: Patient History/Exam Limitations: no limitations Onset/Duration Of Symptoms: Days Current Symptoms Are (Timing): Still Present Past Medical History Reviewed: Historical Data, Nursing Documentation, Vital Signs Vital Signs: Last Vital Signs Temp 98.7 F 11/17/18 14:53 Pulse 102 H 11/17/18 14:53 Resp 20 11/17/18 14:53 BP 142/86 11/17/18 14:53 Pulse Ox 99 11/17/18 14:53 - Medical History PMH: Anxiety, Bronchitis, CHF, COPD, Depression, HTN, Peripheral Edema, Pneumon ia Denies: Chronic Kidney Disease - [facility] Procedures CHANGE PRESSURE DRESSING ON ABDOMINAL WALL (11/16/17) DRAINAGE OF ABDOMINAL WALL, OPEN APPROACH (11/16/17) DRAINAGE OF L PLEURAL CAV WITH DRAIN DEV, PERC APPROACH (11/16/17) DRAINAGE OF LEFT PLEURAL CAVITY, PERCUTANEOUS APPROACH (11/16/17) EXCISION OF ABD SUBCU/FASCIA, OPEN APPROACH (11/16/17) EXCISION OF ABDOMINAL WALL, OPEN APPROACH (11/16/17) EXCISION OF CHEST SUBCU/FASCIA, OPEN APPROACH (11/16/17) INSERT OF INFUSION DEV INTO R CEPHALIC VEIN, PERC APPROACH (07/11/18) INSERTION OF INFUSION DEV INTO SUP VENA CAVA, PERC APPROACH (08/08/18) Family History: States: No Known Family Hx - Social History Hx Tobacco Use: Yes (light smoker) Hx Alcohol Use: No Hx Substance Use: Yes - Immunization History Hx Tetanus Toxoid Vaccination: No Hx Influenza Vaccination: Yes Hx Pneumococcal Vaccination: Yes Review Of Systems Except As Marked, All Systems Reviewed And Found Negative. Constitutional: Negative for: Fever, Chills Respiratory: Positive for: Cough Gastrointestinal: Positive for: Diarrhea. Negative for: Vomiting, Abdominal Pain Musculoskeletal: Positive for: Other (Leg swelling) Skin: Positive for: Rash Physical Exam - Physical Exam Appears: Non-toxic, No Acute Distress, Other (morbidly obese) Skin: Warm, Dry, Rash (10x6 cm area under left breast with mild odorous intertrigo rash), Other (no evidence of cellulitis) Head: Atraumatic, Normacephalic Eye(s): bilateral: Normal Inspection Oral Mucosa: Moist Neck: Normal ROM, Supple Chest: Symmetrical, No Tenderness Cardiovascular: Rhythm Regular, No Friction Rub, No Murmur Respiratory: Normal Breath Sounds, No Rales, No Rhonchi, No Wheezing Gastrointestinal/Abdominal: Soft, No Tenderness Extremity: Other (2+ pitting edema on lower extremities) Extremity: Bilateral: Normal ROM Neurological/Psych: Oriented x3, Normal Speech ED Course And Treatment - Laboratory Results Result Diagrams: 11/17/18 15:49 11/17/18 15:49 ECG: Interpreted By Me, Viewed By Me ECG Rhythm: Sinus Rhythm Rate From EC O2 Sat by Pulse Oximetry: 99 (RA) Pulse Ox Interpretation: Normal - Other Rad CXR X-Ray: Read By Radiologist Interpretation: LUNGS: Poor inspiration with low lung volumes, crowded bronchovascular markings and bibasilar atelectasis. PLEURA: No significant pleural effusion identified, no pneumothorax apparent. CARDIOVASCULAR: No aortic atherosclerotic calcification present. Normal cardiac size. No pulmonary vascular congestion. OSSEOUS STRUCTURES: No significant abnormalities. VISUALIZED UPPER ABDOMEN: Normal. OTHER FINDINGS: None. IMPRESSION: Poor inspiration with low lung volumes, crowded bronchovascular markings and bibasilar atelectasis Medical Decision Making Medical Decision Making: Plan: --EKG --Labs --Chest XR --Lasix 20 mg IVP Old records reviewed. Patient was last seen on 10/23/18 for productive cough and was hospitalized. Disposition - Disposition Disposition: HOSPITALIZED Disposition Time: 16:00 Condition: STABLE - Clinical Impression Clinical Impression: Acute bronchitis, Leg edema, Dyspnea, Intertrigo - PA / [employer]IC / Resident Statement MD/DO has reviewed & agrees with the documentation as recorded. - Scribe Statement The provider has reviewed the documentation as recorded by the Scribe Merlene Landry All medical record entries made by the Scribe were at my direction and personally dictated by me. I have reviewed the chart and agree that the record accurately reflects my personal performance of the history, physical exam, medic al decision making, and the department course for this patient. I have also personally directed, reviewed, and agree with the discharge instructions and disposition.
[2018-11-17 15:59] LABS: BASO # 0.1 K/uL (0.0-0.2); BASO % 0.6 % (0.0-2.0); EOS # 0.4 K/uL (0.0-0.7); EOS % 4.1 % (0.0-4.0); HEMOGLOBIN 11.4 g/dL (12.0-18.0); LYMPH # 1.6 K/uL (1.0-4.3); LYMPH % 18.1 % (20.0-40.0); MEAN CELL VOLUME 78.6 fL (80.0-94.0); MEAN CORPUSCULAR HEMOGLOBIN 25.1 pg (27.0-31.0); MEAN CORPUSCULAR HGB CONC 31.9 g/dL (33.0-37.0); MEAN PLATELET VOLUME 7.6 fL (7.2-11.7); MONO # 0.6 K/uL (0.0-0.8); MONO % 6.5 % (0.0-10.0); NEUT # 6.3 K/uL (1.8-7.0); NEUT % 70.7 % (50.0-75.0); NRBC % 0.1 % (0.0-2.0); RBC 4.56 Mil/uL (4.40-5.90); RED CELL DISTRIBUTION WIDTH 15.8 % (11.5-14.5)
--- NOTE | 2018-11-17 15:59 | RAD ---
Date of service: 11/17/2018 HISTORY: SOB COMPARISON: Comparison chest 10/23/2018 FINDINGS: LUNGS: Poor inspiration with low lung volumes, crowded bronchovascular markings and bibasilar atelectasis PLEURA: No significant pleural effusion identified, no pneumothorax apparent. CARDIOVASCULAR: No aortic atherosclerotic calcification present. Normal cardiac size. No pulmonary vascular congestion. OSSEOUS STRUCTURES: No significant abnormalities. VISUALIZED UPPER ABDOMEN: Normal. OTHER FINDINGS: None. IMPRESSION: Poor inspiration with low lung volumes, crowded bronchovascular markings and bibasilar atelectasis
[2018-11-17 16:02] LABS: INR 1.2; PROTHROMBIN TIME 12.9 SECONDS (9.7-12.2)
[2018-11-17 16:08] LABS: ALB/GLOB RATIO 1.1 (1.0-2.1); ALBUMIN 3.6 g/dL (3.5-5.0); ALT/SGPT 10 U/L (21-72); AST/SGOT 18 U/L (17-59); BLOOD UREA NITROGEN 12 mg/dL (9-20); CALCIUM 8.1 mg/dl (8.6-10.4); GFR NON-AFRICAN AMERICAN > 60
[2018-11-17 16:16] LABS: B-TYPE NATRIURETIC PEPTIDE 64.9 pg/mL (0-450)
[2018-11-17 18:09] VITALS: RESP 20
--- NOTE | 2018-11-17 22:30 | CP.PCM.HP ---
Past Patient History - Infectious Disease Hx of Infectious Diseases: None - Past Medical History & Family History Past Medical History?: Yes - Past Social History Smoking Status: Heavy Smoker > 10 Cigarettes Daily - CARDIAC Hx Congestive Heart Failure: Yes Hx Hypertension: Yes Hx Peripheral Edema: Yes - PULMONARY Hx Bronchitis: Yes Hx Chronic Obstructive Pulmonary Disease (COPD): Yes Hx Pneumonia: Yes - NEUROLOGICAL Hx Neurological Disorder: No - HEENT Hx HEENT Problems: No - RENAL Hx Chronic Kidney Disease: No - ENDOCRINE/METABOLIC Hx Endocrine Disorders: Yes Other/Comment: Obesity as per patient - HEMATOLOGICAL/ONCOLOGICAL Hx Blood Disorders: No - INTEGUMENTARY Hx Dermatological Problems: Yes Hx Cellulitis: Yes - MUSCULOSKELETAL/RHEUMATOLOGICAL Hx Musculoskeletal Disorders: No Hx Falls: Yes - GASTROINTESTINAL Hx Gastrointestinal Disorders: No - GENITOURINARY/GYNECOLOGICAL Hx Genitourinary Disorders: No - PSYCHIATRIC Hx Anxiety: Yes Hx Depression: Yes Hx Substance Use: Yes - SURGICAL HISTORY Hx Surgeries: Yes Other/Comment: abdominal sx, chest tube to left lung. - ANESTHESIA Hx Anesthesia: Yes Hx Anesthesia Reactions: No Hx Malignant Hyperthermia: No Meds Allergies/Adverse Reactions: Allergies Allergy/AdvReac Type Severity Reaction Status Date / Time No Known Allergies Allergy Verified 11/17/18 14:59 Results - Vital Signs Recent Vital Signs: Last Vital Signs Temp 97.2 F L 11/17/18 18:53 Pulse 95 H 11/17/18 18:53 Resp 20 11/17/18 18:53 BP 139/84 11/17/18 18:53 Pulse Ox 99 11/17/18 18:56 - Labs Result Diagrams: 11/17/18 15:49 11/17/18 15:49 Labs: Laboratory Results - last 24 hr 11/17/18 11/17/18 11/17/18 15:49 15:49 15:49 WBC 9.0 RBC 4.56 Hgb 11.4 L Hct 35.8 MCV 78.6 L MCH 25.1 L MCHC 31.9 L RDW 15.8 H Plt Count 271 MPV 7.6 Neut % (Auto) 70.7 Lymph % (Auto) 18.1 L [place] % (Auto) 6.5 Eos % (Auto) 4.1 H Baso % (Auto) 0.6 Neut # (Auto) 6.3 Lymph # (Auto) 1.6 [place] # (Auto) 0.6 Eos # (Auto) 0.4 Baso # (Auto) 0.1 PT 12.9 H INR 1.2 APTT 38 H Sodium 135 Potassium 3.5 L Chloride 102 Carbon Dioxide 28 Anion Gap 8 L BUN 12 Creatinine 0.7 L Est GFR ( Amer) > 60 Est GFR (Non-Af Amer) > 60 Random Glucose 98 Calcium 8.1 L Total Bilirubin 0.4 AST 18 ALT 10 L Alkaline Phosphatase 156 H NT-Pro-B Natriuret Pep 64.9 Total Protein 6.9 Albumin 3.6 Globulin 3.3 Albumin/Globulin Ratio 1.1
[2018-11-17] MEDS ORDERED: Potassium Chloride 20 mEq ER Tab PO ONE (23:35)
[2018-11-18] MEDS: Piperacillin/Tazobact 3.375 GM in Sodium Chloride 100 ML IVPB SCH ×5 (01:00→22:30)
[2018-11-18] MEDS: Albuterol-Ipratrop 3 mg / 0.5 (3 ml) UD INH SCH ×4 (01:31→20:23)
--- NOTE | 2018-11-18 15:27 | CP.PCM.PN ---
Subjective - Date & Time of Evaluation Date of Evaluation: 11/18/18 Time of Evaluation: 12:00 - Subjective Subjective: clinically same Objective - Vital Signs/Intake and Output Vital Signs (last 24 hours): Temp Pulse Resp BP Pulse Ox 97.8 F 109 H 20 148/75 99 11/18/18 07:20 11/18/18 10:00 11/18/18 07:20 11/18/18 11:02 11/18/18 07:20 - Medications Medications: Current Medications Albuterol/Ipratropium (Duoneb 3 Mg/0.5 Mg (3 Ml) Ud) 3 ml INH RQ6 [facility] Last Admin: 11/18/18 13:55 Dose: 3 ml Furosemide (Lasix) 40 mg IVP DAILY [facility] Last Admin: 11/18/18 11:02 Dose: 40 mg Piperacillin Sod/Tazobactam (Sod 3.375 gm/ Sodium Chloride) 100 mls @ 200 mls/hr IVPB Q8H [facility]; Protocol Last Admin: 11/18/18 14:38 Dose: 200 mls/hr - Labs Labs: 11/17/18 15:49 11/17/18 15:49 PT 12.9 SECONDS (9.7-12.2) H 11/17/18 15:49 INR 1.2 11/17/18 15:49 APTT 38 SECONDS (21-34) H 11/17/18 15:49 - Constitutional Appears: Well - Head Exam Head Exam: ATRAUMATIC, NORMAL INSPECTION, NORMOCEPHALIC - Eye Exam Eye Exam: EOMI, Normal appearance, PERRL Pupil Exam: NORMAL ACCOMODATION, PERRL - ENT Exam ENT Exam: Mucous Membranes Moist, Normal Exam - Neck Exam Neck Exam: Full ROM, Normal Inspection. absent: Lymphadenopathy - Respiratory Exam Respiratory Exam: Decreased Breath Sounds - Cardiovascular Exam Cardiovascular Exam: REGULAR RHYTHM, +S1, +S2 - GI/Abdominal Exam GI & Abdominal Exam: Soft, Diminished Bowel Sounds - Rectal Exam Rectal Exam: Deferred
[2018-11-18] MEDS: guaiFENesin DM 200 mg-20 mg/10 ml UD PO PRN (21:11)
[2018-11-19] MEDS: Albuterol-Ipratrop 3 mg / 0.5 (3 ml) UD INH SCH ×4 (01:07→19:59)
[2018-11-19] MEDS: Piperacillin/Tazobact 3.375 GM in Sodium Chloride 100 ML IVPB SCH ×3 (06:35→22:15)
[2018-11-19] MEDS: guaiFENesin DM 200 mg-20 mg/10 ml UD PO PRN ×2 (06:43→15:03)
--- NOTE | 2018-11-19 14:21 | CARD ---
APPROVED REPORT Date of service: 11/17/2018 EKG Measurement Heart [id number] <Conclusion> Normal sinus rhythm Normal ECG
--- NOTE | 2018-11-19 18:49 | CP.PCM.CON ---
History of Present Illness - History of Present Illness History of Present Illness: INFECTIOUS DISEASE CONSULT; HPI; 43-year-old morbidly obese male with multiple hospitalization at [facility], admitted on 11/17/18 complaining off cough, chest congestion, sneezing, white sputum production and bilateral leg swelling. Patient was recently admitted for similar reasons on 10/23/18. Patient reports he finished the Lasix that was given to him a week ago and hasn't taken any medications since then. Patient denies any fever or chills. Denies nausea, vomiting or abdominal pain. Patient also complains of diarrhea. Patient does complain of intermittent shortness of breath. Denies any melena or hematemesis/or hemoptysis. Patient also gives history of sleep apnea syndrome. Infectious disease consult requested by PMD for cellulitis of B/L LE . Patient presently on IV Zosyn 3.375 every 8 hourly. PMH: Anxiety, Bronchitis, CHF, COPD, Depression, HTN, Peripheral Edema, Pneum onia. Denies: Chronic Kidney Disease - [facility] Procedures CHANGE PRESSURE DRESSING ON ABDOMINAL WALL (11/16/17) DRAINAGE OF ABDOMINAL WALL, OPEN APPROACH (11/16/17) DRAINAGE OF L PLEURAL CAV WITH DRAIN DEV, PERC APPROACH (11/16/17) DRAINAGE OF LEFT PLEURAL CAVITY, PERCUTANEOUS APPROACH (11/16/17) EXCISION OF ABD SUBCU/FASCIA, OPEN APPROACH (11/16/17) EXCISION OF ABDOMINAL WALL, OPEN APPROACH (11/16/17) EXCISION OF CHEST SUBCU/FASCIA, OPEN APPROACH (11/16/17) INSERT OF INFUSION DEV INTO R CEPHALIC VEIN, PERC APPROACH (07/11/18) INSERTION OF INFUSION DEV INTO SUP VENA CAVA, PERC APPROACH (08/08/18) Family History: States: No Known Family Hx - Social History Hx Tobacco Use: Yes (light smoker) Hx Alcohol Use: No Hx Substance Use: Yes - Immunization History Hx Tetanus Toxoid Vaccination: No Hx Influenza Vaccination: Yes Hx Pneumococcal Vaccination: Yes Review of Systems - Constitutional Constitutional: absent: Chills, Fever - EENT Eyes: absent: Change in Vision Nose/Mouth/Throat: Nasal Congestion. absent: Mouth Lesions, Mouth Pain, Odynophagia - Cardiovascular Cardiovascular: Dyspnea on Exertion, Leg Edema - Respiratory Respiratory: Cough, Dyspnea on Exertion, Chest Congestion, Excessive Mucous Production. absent: Hemoptysis - Gastrointestinal Gastrointestinal: Diarrhea. absent: Abdominal Pain, Nausea, Vomiting - Genitourinary Genitourinary: absent: Dysuria - Neurological Neurological: absent: Dizziness - Hematologic/Lymphatic Hematologic: As Per HPI. absent: Easy Bruising, Lymphadenopathy Past Patient History - Infectious Disease Hx of Infectious Diseases: None - Past Medical History & Family History Past Medical History?: Yes - Past Social History Smoking Status: Heavy Smoker > 10 Cigarettes Daily - CARDIAC Hx Congestive Heart Failure: Yes Hx Hypertension: Yes Hx Peripheral Edema: Yes - PULMONARY Hx Bronchitis: Yes Hx Chronic Obstructive Pulmonary Disease (COPD): Yes Hx Pneumonia: Yes - NEUROLOGICAL Hx Neurological Disorder: No - HEENT Hx HEENT Problems: No - RENAL Hx Chronic Kidney Disease: No - ENDOCRINE/METABOLIC Hx Endocrine Disorders: Yes Other/Comment: Obesity as per patient - HEMATOLOGICAL/ONCOLOGICAL Hx Blood Disorders: No - INTEGUMENTARY Hx Dermatological Problems: Yes Hx Cellulitis: Yes - MUSCULOSKELETAL/RHEUMATOLOGICAL Hx Musculoskeletal Disorders: No Hx Falls: Yes - GASTROINTESTINAL Hx Gastrointestinal Disorders: No - GENITOURINARY/GYNECOLOGICAL Hx Genitourinary Disorders: No - PSYCHIATRIC Hx Anxiety: Yes Hx Depression: Yes Hx Substance Use: Yes - SURGICAL HISTORY Hx Surgeries: Yes Other/Comment: abdominal sx, chest tube to left lung. - ANESTHESIA Hx Anesthesia: Yes Hx Anesthesia Reactions: No Hx Malignant Hyperthermia: No Meds Allergies/Adverse Reactions: Allergies Allergy/AdvReac Type Severity Reaction Status Date / Time No Known Allergies Allergy Verified 11/17/18 14:59 - Medications Medications: Current Medications Albuterol/Ipratropium (Duoneb 3 Mg/0.5 Mg (3 Ml) Ud) 3 ml INH RQ6 [facility] Last Admin: 11/19/18 14:28 Dose: 3 ml Furosemide (Lasix) 40 mg IVP DAILY [facility] Last Admin: 11/19/18 10:26 Dose: 40 mg Guaifenesin/Dextromethorphan (Robitussin Dm) 10 ml PO TID PRN PRN Reason: Cough and congestion Last Admin: 11/19/18 15:03 Dose: 10 ml Piperacillin Sod/Tazobactam (Sod 3.375 gm/ Sodium Chloride) 100 mls @ 200 mls/hr IVPB Q8H [facility], [facility]; Protocol Last Admin: 11/19/18 15:02 Dose: 200 mls/hr Physical Exam - Constitutional Appears: No Acute Distress, Unkempt - Head Exam Head Exam: NORMAL INSPECTION - Eye Exam Eye Exam: EOMI, PERRL - ENT Exam ENT Exam: Mucous Membranes Moist, Normal Oropharynx - Neck Exam Neck exam: Positive for: Normal Inspection. Negative for: Lymphadenopathy - Respiratory Exam Respiratory Exam: Prolonged Expiratory Phase, NORMAL BREATHING PATTERN - Cardiovascular Exam Cardiovascular Exam: REGULAR RHYTHM, +S1, +S2 - GI/Abdominal Exam GI & Abdominal Exam: Normal Bowel Sounds, Soft. absent: Tenderness - Extremities Exam Extremities exam: Positive for: normal capillary refill, pedal edema (2+ B/L LE CELLULITIS/CHRONIC STASIS DERMATITIS CHANGES.), pedal pulses present. Negative for: calf tenderness - Neurological Exam Neurological exam: Alert, CN II-XII Intact, Oriented x3 - Psychiatric Exam Psychiatric exam: Normal Mood - Skin Skin Exam: Normal Color, Warm Results - Vital Signs Recent Vital Signs: Last Vital Signs Temp 99 F 11/19/18 15:00 Pulse 102 H 11/19/18 16:00 Resp 20 11/19/18 15:00 BP 151/74 H 11/19/18 15:00 Pulse Ox 100 11/19/18 15:00 - Labs Result Diagrams: 11/17/18 15:49 11/17/18 15:49 - Imaging and Cardiology Chest x-ray Status: Report reviewed by me (CXR 11/17/18 POOR INSPIRATION, LOW LUNG VOLUMES, CR OWDED BRONCHOVASCULAR MARKINGS, BIBASILAR ATELECTASIS) Assessment & Plan (1) Dyspnea Status: Acute (2) Acute bronchitis Status: Acute (3) Bilateral lower leg cellulitis Status: Acute (4) Leg edema Status: Acute (5) Obesity hypoventilation syndrome Status: Acute - Assessment and Plan (Free Text) Plan: PANCULTURES SPUTUM GRAM STAIN AND CULTURE CRP. ESR D. DIMER CONTINUE iv ZOSYN 3.375 EVERY 8 HOURLY 11/17/18. F/U CULTURES TO ADJUST ANTIBIOTICS. DIURESIS PER PMD. MRSA SCREEN. WILL F/U ALONG WITH YOU, AND MAKE FURTHER RECOMMENDATIONS NEEDED. THANK YOU VERY MUCH FOR allowing ME TO PARTICIPATE IN CARE OF YOUR PT.
--- NOTE | 2018-11-19 21:33 | CP.PCM.PN ---
Subjective - Date & Time of Evaluation Date of Evaluation: 11/19/18 Time of Evaluation: 12:15 - Subjective Subjective: clinically same Objective - Vital Signs/Intake and Output Vital Signs (last 24 hours): Temp Pulse Resp BP Pulse Ox 99 F 102 H 20 151/74 H 100 11/19/18 15:00 11/19/18 16:00 11/19/18 15:00 11/19/18 15:00 11/19/18 15:00 - Medications Medications: Current Medications Albuterol/Ipratropium (Duoneb 3 Mg/0.5 Mg (3 Ml) Ud) 3 ml INH RQ6 [facility] Last Admin: 11/19/18 19:59 Dose: 3 ml Furosemide (Lasix) 40 mg IVP DAILY ZANE Last Admin: 11/19/18 10:26 Dose: 40 mg Guaifenesin/Dextromethorphan (Robitussin Dm) 10 ml PO TID PRN PRN Reason: Cough and congestion Last Admin: 11/19/18 15:03 Dose: 10 ml Piperacillin Sod/Tazobactam (Sod 3.375 gm/ Sodium Chloride) 100 mls @ 200 mls/hr IVPB Q8H [facility]; Protocol Last Admin: 11/19/18 15:02 Dose: 200 mls/hr - Labs Labs: 11/17/18 15:49 11/17/18 15:49 PT 12.9 SECONDS (9.7-12.2) H 11/17/18 15:49 INR 1.2 11/17/18 15:49 APTT 38 SECONDS (21-34) H 11/17/18 15:49 - Constitutional Appears: Well - Head Exam Head Exam: ATRAUMATIC, NORMAL INSPECTION, NORMOCEPHALIC - Eye Exam Eye Exam: EOMI, Normal appearance, PERRL Pupil Exam: NORMAL ACCOMODATION, PERRL - ENT Exam ENT Exam: Mucous Membranes Moist, Normal Exam - Neck Exam Neck Exam: Full ROM, Normal Inspection. absent: Lymphadenopathy - Respiratory Exam Respiratory Exam: Decreased Breath Sounds - Cardiovascular Exam Cardiovascular Exam: REGULAR RHYTHM, +S1, +S2 - GI/Abdominal Exam GI & Abdominal Exam: Soft, Diminished Bowel Sounds - Rectal Exam Rectal Exam: Deferred
[2018-11-20] MEDS: Albuterol-Ipratrop 3 mg / 0.5 (3 ml) UD INH SCH ×4 (01:22→20:46)
[2018-11-20] MEDS: guaiFENesin DM 200 mg-20 mg/10 ml UD PO PRN ×3 (03:53→18:23)
[2018-11-20] MEDS: Piperacillin/Tazobact 3.375 GM in Sodium Chloride 100 ML IVPB SCH ×3 (06:51→22:40)
--- NOTE | 2018-11-20 19:00 | CP.PCM.PN ---
Subjective - Date & Time of Evaluation Date of Evaluation: 11/20/18 Time of Evaluation: 11:15 - Subjective Subjective: clinically same Objective - Vital Signs/Intake and Output Vital Signs (last 24 hours): Temp Pulse Resp BP Pulse Ox 97.8 F 82 20 143/83 97 11/20/18 15:00 11/20/18 17:32 11/20/18 15:00 11/20/18 15:00 11/20/18 15:00 - Medications Medications: Current Medications Albuterol/Ipratropium (Duoneb 3 Mg/0.5 Mg (3 Ml) Ud) 3 ml INH RQ6 [facility] Last Admin: 11/20/18 13:22 Dose: 3 ml Furosemide (Lasix) 40 mg IVP DAILY ZANE Last Admin: 11/20/18 10:03 Dose: 40 mg Guaifenesin/Dextromethorphan (Robitussin Dm) 10 ml PO TID PRN PRN Reason: Cough and congestion Last Admin: 11/20/18 18:23 Dose: 10 ml Piperacillin Sod/Tazobactam (Sod 3.375 gm/ Sodium Chloride) 100 mls @ 200 mls/hr IVPB Q8H [facility]; Protocol Last Admin: 11/20/18 06:51 Dose: 200 mls/hr - Labs Labs: 11/17/18 15:49 11/17/18 15:49 PT 12.9 SECONDS (9.7-12.2) H 11/17/18 15:49 INR 1.2 11/17/18 15:49 APTT 38 SECONDS (21-34) H 11/17/18 15:49 - Constitutional Appears: Well - Head Exam Head Exam: ATRAUMATIC, NORMAL INSPECTION, NORMOCEPHALIC - Eye Exam Eye Exam: EOMI, Normal appearance, PERRL Pupil Exam: NORMAL ACCOMODATION, PERRL - ENT Exam ENT Exam: Mucous Membranes Moist, Normal Exam - Neck Exam Neck Exam: Full ROM, Normal Inspection. absent: Lymphadenopathy - Respiratory Exam Respiratory Exam: Decreased Breath Sounds - Cardiovascular Exam Cardiovascular Exam: REGULAR RHYTHM, +S1, +S2 - GI/Abdominal Exam GI & Abdominal Exam: Soft, Diminished Bowel Sounds - Rectal Exam Rectal Exam: Deferred
--- NOTE | 2018-11-20 22:50 | CP.PCM.PN ---
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 ROS. HEENT : N. Resp : +VE cough,NASAL CONGESTION , NO wheezing ,pleuritic CP ,or hemoptysis Cardio : No anginal CP, PND, orthopnea, palpitation GI : No abd.pain, n/v ,diarrhea or GI bleeding . SUPPLEMENTAL MANAGER : No headache, vertigo, focal deficit. Musculoskel : No joint swelling , Derm : No rash Psych : Normal affect. Ext : No swelling ,calf pain PE. Pt. is alert awake in no distress. V.S As noted in the chart Head ,ear nose,throat and eyes : Normal. Neck : Supple with normal carotids. Lungs: POOR AIR ENTRY Heart : S1 & S2 normal with S4. No murmur. Abd : Soft non tender with normal bowel sounds. Neuro : Moves all ext. with no localized deficit. Ext : B/L LE EDEMA 2+, WITH CELLULITIS AND THICKENED SKIN/ CHRONIC STASIS DERMATITIS CHANGES Derm : No rashes or decubitus ulcer. LABS/RADIOLOGY: REVIEWED bLOOD CULTURES NEGATIVE TO DATE. Objective - Vital Signs/Intake and Output Vital Signs (last 24 hours): Temp Pulse Resp BP Pulse Ox 97.8 F 82 20 143/83 97 11/20/18 15:00 11/20/18 17:32 11/20/18 15:00 11/20/18 15:00 11/20/18 15:00 - Medications Medications: Current Medications Albuterol/Ipratropium (Duoneb 3 Mg/0.5 Mg (3 Ml) Ud) 3 ml INH RQ6 [facility] Last Admin: 11/20/18 20:46 Dose: 3 ml Furosemide (Lasix) 40 mg IVP DAILY ZANE Last Admin: 11/20/18 10:03 Dose: 40 mg Guaifenesin/Dextromethorphan (Robitussin Dm) 10 ml PO TID PRN PRN Reason: Cough and congestion Last Admin: 11/20/18 18:23 Dose: 10 ml Piperacillin Sod/Tazobactam (Sod 3.375 gm/ Sodium Chloride) 100 mls @ 200 mls/hr IVPB Q8H [facility]; Protocol Last Admin: 11/20/18 22:40 Dose: 200 mls/hr - Labs Labs: 11/17/18 15:49 11/17/18 15:49 PT 12.9 SECONDS (9.7-12.2) H 11/17/18 15:49 INR 1.2 11/17/18 15:49 APTT 38 SECONDS (21-34) H 11/17/18 15:49 Assessment and Plan (1) Dyspnea Status: Acute (2) Acute bronchitis Status: Acute (3) Bilateral lower leg cellulitis Status: Acute (4) Leg edema Status: Acute (5) Obesity hypoventilation syndrome Status: Acute - Assessment and Plan (Free Text) Plan: CONTINUE iv ZOSYN 3.375 EVERY 8 HOURLY 11/17/18. ADD IV ZITHROMAX 500MG IVPB QD DAILY X 5DAYS 11/20/18 F/U CULTURES TO ADJUST ANTIBIOTICS. DIURESIS PER PMD. CASE DISCUSSED WITH THE STAFF.
[2018-11-20] MEDS ORDERED: Azithromycin 500 MG in Sodium Chloride 0.9% 250 ML IVPB SCH (23:00)
[2018-11-21] MEDS: Albuterol-Ipratrop 3 mg / 0.5 (3 ml) UD INH SCH ×4 (01:21→19:36)
[2018-11-21] MEDS: guaiFENesin DM 200 mg-20 mg/10 ml UD PO PRN ×2 (04:39→22:19)
[2018-11-21] MEDS: Piperacillin/Tazobact 3.375 GM in Sodium Chloride 100 ML IVPB SCH ×3 (06:45→22:19)
[2018-11-21 08:12] LABS: BASO % 0.4 % (0.0-2.0); EOS # 0.4 K/uL (0.0-0.7); HEMOGLOBIN 12.1 g/dL (12.0-18.0); LYMPH % 19.5 % (20.0-40.0); MEAN CORPUSCULAR HEMOGLOBIN 25.4 pg (27.0-31.0); MEAN CORPUSCULAR HGB CONC 32.1 g/dL (33.0-37.0); MEAN PLATELET VOLUME 7.5 fL (7.2-11.7); MONO # 0.4 K/uL (0.0-0.8); MONO % 8.8 % (0.0-10.0); NEUT # 3.3 K/uL (1.8-7.0); NEUT % 64.3 % (50.0-75.0); NRBC % 0.1 % (0.0-2.0); RBC 4.78 Mil/uL (4.40-5.90); RED CELL DISTRIBUTION WIDTH 16.1 % (11.5-14.5); WHITE BLOOD COUNT 5.1 K/uL (4.8-10.8)
[2018-11-21 08:27] LABS: ALB/GLOB RATIO 1.1 (1.0-2.1); ALBUMIN 3.7 g/dL (3.5-5.0); ALT/SGPT 23 U/L (21-72); AST/SGOT 26 U/L (17-59); BLOOD UREA NITROGEN 11 mg/dL (9-20); CALCIUM 8.4 mg/dl (8.6-10.4); GFR NON-AFRICAN AMERICAN > 60
--- NOTE | 2018-11-21 19:05 | CP.PCM.PN ---
Subjective - Date & Time of Evaluation Date of Evaluation: 11/21/18 Time of Evaluation: 10:15 - Subjective Subjective: clinically same Objective - Vital Signs/Intake and Output Vital Signs (last 24 hours): Temp Pulse Resp BP Pulse Ox 97.3 F L 85 20 154/84 H 97 11/21/18 15:00 11/21/18 17:00 11/21/18 15:00 11/21/18 15:00 11/21/18 15:00 Intake and Output: 11/21/18 11/22/18 18:59 06:59 Intake Total 600 Balance 600 - Medications Medications: Current Medications Albuterol/Ipratropium (Duoneb 3 Mg/0.5 Mg (3 Ml) Ud) 3 ml INH RQ6 [facility] Last Admin: 11/21/18 13:28 Dose: 3 ml Azithromycin (Zithromax) 500 mg PO DAILY [facility]; Protocol Last Admin: 11/21/18 09:57 Dose: 500 mg Furosemide (Lasix) 40 mg IVP DAILY [facility] Last Admin: 11/21/18 09:56 Dose: 40 mg Guaifenesin/Dextromethorphan (Robitussin Dm) 10 ml PO TID PRN PRN Reason: Cough and congestion Last Admin: 11/21/18 04:39 Dose: 10 ml Piperacillin Sod/Tazobactam (Sod 3.375 gm/ Sodium Chloride) 100 mls @ 200 mls/hr IVPB Q8H [facility]; Protocol Last Admin: 11/21/18 14:45 Dose: 200 mls/hr - Labs Labs: 11/21/18 08:02 11/21/18 08:02 PT 12.9 SECONDS (9.7-12.2) H 11/17/18 15:49 INR 1.2 11/17/18 15:49 APTT 38 SECONDS (21-34) H 11/17/18 15:49 - Constitutional Appears: Well - Head Exam Head Exam: ATRAUMATIC, NORMAL INSPECTION, NORMOCEPHALIC - Eye Exam Eye Exam: EOMI, Normal appearance, PERRL Pupil Exam: NORMAL ACCOMODATION, PERRL - ENT Exam ENT Exam: Mucous Membranes Moist, Normal Exam - Neck Exam Neck Exam: Full ROM, Normal Inspection. absent: Lymphadenopathy - Respiratory Exam Respiratory Exam: Decreased Breath Sounds - Cardiovascular Exam Cardiovascular Exam: REGULAR RHYTHM, +S1, +S2 - GI/Abdominal Exam GI & Abdominal Exam: Soft, Diminished Bowel Sounds - Rectal Exam Rectal Exam: Deferred
--- NOTE | 2018-11-21 22:11 | CP.PCM.PN ---
Subjective - Date & Time of Evaluation Date of Evaluation: 11/21/18 Time of Evaluation: 22:11 - Subjective Subjective: CHIEF COMPLAINTS TODAY : AFEBRILE, C/O BRONCHITIS /URT SYMPTOMS sneezing s/p SUSANNE PICC LINE. 11/20/18/ ROS. HEENT : N. Resp : +VE cough,NASAL CONGESTION , NO wheezing ,pleuritic CP ,or hemoptysis Cardio : No anginal CP, PND, orthopnea, palpitation GI : No abd.pain, n/v ,diarrhea or GI bleeding . FINISHER SCREWDOWN : No headache, vertigo, focal deficit. Musculoskel : No joint swelling , Derm : No rash Psych : Normal affect. Ext : No swelling ,calf pain PE. Pt. is alert awake in no distress. V.S As noted in the chart Head ,ear nose,throat and eyes : Normal. Neck : Supple with normal carotids. Lungs: POOR AIR ENTRY Heart : S1 & S2 normal with S4. No murmur. Abd : Soft non tender with normal bowel sounds. Neuro : Moves all ext. with no localized deficit. Ext : B/L LE EDEMA 2+, WITH CELLULITIS AND THICKENED SKIN/ CHRONIC STASIS DERMATITIS CHANGES Derm : No rashes or decubitus ulcer. LABS/RADIOLOGY: REVIEWED bLOOD CULTURES NEGATIVE TO DATE. Objective - Vital Signs/Intake and Output Vital Signs (last 24 hours): Temp Pulse Resp BP Pulse Ox 97.3 F L 85 20 154/84 H 97 11/21/18 15:00 11/21/18 17:00 11/21/18 15:00 11/21/18 15:00 11/21/18 15:00 Intake and Output: 11/21/18 11/22/18 18:59 06:59 Intake Total 600 Balance 600 - Medications Medications: Current Medications Albuterol/Ipratropium (Duoneb 3 Mg/0.5 Mg (3 Ml) Ud) 3 ml INH RQ6 [facility] Last Admin: 11/21/18 19:36 Dose: 3 ml Azithromycin (Zithromax) 500 mg PO DAILY [facility]; Protocol Last Admin: 11/21/18 09:57 Dose: 500 mg Furosemide (Lasix) 40 mg IVP DAILY [facility] Last Admin: 11/21/18 09:56 Dose: 40 mg Guaifenesin/Dextromethorphan (Robitussin Dm) 10 ml PO TID PRN PRN Reason: Cough and congestion Last Admin: 11/21/18 04:39 Dose: 10 ml Piperacillin Sod/Tazobactam (Sod 3.375 gm/ Sodium Chloride) 100 mls @ 200 mls/hr IVPB Q8H [facility]; Protocol Last Admin: 11/21/18 14:45 Dose: 200 mls/hr - Labs Labs: 11/21/18 08:02 11/21/18 08:02 PT 12.9 SECONDS (9.7-12.2) H 11/17/18 15:49 INR 1.2 11/17/18 15:49 APTT 38 SECONDS (21-34) H 11/17/18 15:49 Assessment and Plan (1) Dyspnea Status: Acute (2) Acute bronchitis Status: Acute (3) Bilateral lower leg cellulitis Status: Acute (4) Leg edema Status: Acute (5) Obesity hypoventilation syndrome Status: Acute - Assessment and Plan (Free Text) Plan: CONTINUE iv ZOSYN 3.375 EVERY 8 HOURLY 11/17/18. ADD IV ZITHROMAX 500MG IVPB QD DAILY X 5DAYS 11/20/18 F/U CULTURES TO ADJUST ANTIBIOTICS. PICC LINE CARE. DIURESIS PER PMD. CASE DISCUSSED WITH THE STAFF.
[2018-11-22] MEDS: Albuterol-Ipratrop 3 mg / 0.5 (3 ml) UD INH SCH ×4 (01:25→19:28)
[2018-11-22] MEDS: Piperacillin/Tazobact 3.375 GM in Sodium Chloride 100 ML IVPB SCH ×3 (06:46→22:02)
[2018-11-22] MEDS: Ergocalciferol 50,000 Intl Units Cap PO SCH (10:37)
--- NOTE | 2018-11-22 17:07 | CP.PCM.PN ---
Subjective - Date & Time of Evaluation Date of Evaluation: 11/22/18 Time of Evaluation: 11:15 - Subjective Subjective: clinically same Objective - Vital Signs/Intake and Output Vital Signs (last 24 hours): Temp Pulse Resp BP Pulse Ox 98.1 F 90 20 123/71 96 11/22/18 15:00 11/22/18 15:00 11/22/18 15:00 11/22/18 15:00 11/22/18 15:00 Intake and Output: 11/22/18 11/22/18 06:59 18:59 Intake Total 450 Balance 450 - Medications Medications: Current Medications Albuterol/Ipratropium (Duoneb 3 Mg/0.5 Mg (3 Ml) Ud) 3 ml INH RQ6 [facility] Last Admin: 11/22/18 13:06 Dose: 3 ml Azithromycin (Zithromax) 500 mg PO DAILY [facility]; Protocol Last Admin: 11/22/18 09:17 Dose: 500 mg Ergocalciferol (Drisdol 50,000 Intl Units Cap) 1 cap PO Q7D [facility] Last Admin: 11/22/18 10:37 Dose: 1 cap Furosemide (Lasix) 40 mg IVP DAILY [facility] Last Admin: 11/22/18 09:17 Dose: 40 mg Guaifenesin/Dextromethorphan (Robitussin Dm) 10 ml PO TID PRN PRN Reason: Cough and congestion Last Admin: 11/21/18 22:19 Dose: 10 ml Piperacillin Sod/Tazobactam (Sod 3.375 gm/ Sodium Chloride) 100 mls @ 200 mls/hr IVPB Q8H [facility]; Protocol Last Admin: 11/22/18 14:39 Dose: 200 mls/hr Tramadol HCl (Ultram) 50 mg PO Q6H PRN PRN Reason: Pain, severe (8-10) Last Admin: 11/22/18 14:47 Dose: 50 mg - Labs Labs: 11/21/18 08:02 11/21/18 08:02 PT 12.9 SECONDS (9.7-12.2) H 11/17/18 15:49 INR 1.2 11/17/18 15:49 APTT 38 SECONDS (21-34) H 11/17/18 15:49
[2018-11-22] MEDS: guaiFENesin DM 200 mg-20 mg/10 ml UD PO PRN (22:03)
[2018-11-23] MEDS: Albuterol-Ipratrop 3 mg / 0.5 (3 ml) UD INH SCH (01:18)
[2018-11-23] MEDS: Piperacillin/Tazobact 3.375 GM in Sodium Chloride 100 ML IVPB SCH (06:22)
[2018-11-23] MEDS: guaiFENesin DM 200 mg-20 mg/10 ml UD PO PRN ×2 (11:04→18:02)
--- NOTE | 2018-11-23 20:40 | CP.PCM.PN ---
Subjective - Date & Time of Evaluation Date of Evaluation: 11/23/18 Time of Evaluation: 10:15 - Subjective Subjective: clinically same Objective - Vital Signs/Intake and Output Vital Signs (last 24 hours): Temp Pulse Resp BP Pulse Ox 97.9 F 85 20 144/82 96 11/23/18 15:20 11/23/18 15:20 11/23/18 15:20 11/23/18 15:20 11/23/18 15:20 Intake and Output: 11/23/18 11/24/18 18:59 06:59 Intake Total 400 Balance 400 - Medications Medications: Current Medications Azithromycin (Zithromax) 500 mg PO DAILY [facility]; Protocol Last Admin: 11/23/18 09:45 Dose: 500 mg Ergocalciferol (Drisdol 50,000 Intl Units Cap) 1 cap PO Q7D [facility] Last Admin: 11/22/18 10:37 Dose: 1 cap Furosemide (Lasix) 40 mg IVP DAILY [facility] Last Admin: 11/23/18 09:46 Dose: 40 mg Guaifenesin/Dextromethorphan (Robitussin Dm) 10 ml PO TID PRN PRN Reason: Cough and congestion Last Admin: 11/23/18 18:02 Dose: 10 ml Tramadol HCl (Ultram) 50 mg PO Q6H PRN PRN Reason: Pain, severe (8-10) Last Admin: 11/23/18 18:06 Dose: 50 mg - Labs Labs: 11/21/18 08:02 11/21/18 08:02 PT 12.9 SECONDS (9.7-12.2) H 11/17/18 15:49 INR 1.2 11/17/18 15:49 APTT 38 SECONDS (21-34) H 11/17/18 15:49
--- NOTE | 2018-11-24 14:55 | CP.PCM.PN ---
Subjective - Date & Time of Evaluation Date of Evaluation: 11/24/18 Time of Evaluation: 10:00 - Subjective Subjective: clinically same Objective - Vital Signs/Intake and Output Vital Signs (last 24 hours): Temp Pulse Resp BP Pulse Ox 97.8 F 91 H 20 151/99 H 96 11/24/18 09:03 11/24/18 12:37 11/24/18 09:03 11/24/18 09:36 11/24/18 09:03 Intake and Output: 11/24/18 11/24/18 06:59 18:59 Intake Total 350 Balance 350 - Medications Medications: Current Medications Azithromycin (Zithromax) 500 mg PO DAILY [facility]; Protocol Last Admin: 11/24/18 09:35 Dose: 500 mg Ergocalciferol (Drisdol 50,000 Intl Units Cap) 1 cap PO Q7D [facility] Last Admin: 11/22/18 10:37 Dose: 1 cap Furosemide (Lasix) 40 mg IVP DAILY [facility] Last Admin: 11/24/18 09:36 Dose: 40 mg Guaifenesin/Dextromethorphan (Robitussin Dm) 10 ml PO TID PRN PRN Reason: Cough and congestion Last Admin: 11/23/18 18:02 Dose: 10 ml Tramadol HCl (Ultram) 50 mg PO Q6H PRN PRN Reason: Pain, severe (8-10) Last Admin: 11/24/18 07:42 Dose: 50 mg - Labs Labs: 11/21/18 08:02 11/21/18 08:02 PT 12.9 SECONDS (9.7-12.2) H 11/17/18 15:49 INR 1.2 11/17/18 15:49 APTT 38 SECONDS (21-34) H 11/17/18 15:49 - Constitutional Appears: Well - Head Exam Head Exam: ATRAUMATIC, NORMAL INSPECTION, NORMOCEPHALIC - Eye Exam Eye Exam: EOMI, Normal appearance, PERRL Pupil Exam: NORMAL ACCOMODATION, PERRL - ENT Exam ENT Exam: Mucous Membranes Moist, Normal Exam - Neck Exam Neck Exam: Full ROM, Normal Inspection. absent: Lymphadenopathy - Respiratory Exam Respiratory Exam: Decreased Breath Sounds - Cardiovascular Exam Cardiovascular Exam: REGULAR RHYTHM, +S1, +S2 - GI/Abdominal Exam GI & Abdominal Exam: Soft, Diminished Bowel Sounds - Rectal Exam Rectal Exam: Deferred
[2018-11-24] MEDS: guaiFENesin DM 200 mg-20 mg/10 ml UD PO PRN (17:59)
--- NOTE | 2018-11-24 23:46 | CP.PCM.PN ---
Subjective - Date & Time of Evaluation Date of Evaluation: 11/24/18 Time of Evaluation: 23:46 - Subjective Subjective: CHIEF COMPLAINTS TODAY : AFEBRILE, +VE COUGH s/p SUSANNE PICC LINE. 11/20/18 ROS. HEENT : N. Resp : +VE cough,NASAL CONGESTION , NO wheezing ,pleuritic CP ,or hemoptysis Cardio : No anginal CP, PND, orthopnea, palpitation GI : No abd.pain, n/v ,diarrhea or GI bleeding . 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 Musculoskel : No joint swelling , Derm : No rash Psych : Normal affect. Ext : No swelling ,calf pain PE. Pt. is alert awake in no distress. V.S As noted in the chart Head ,ear nose,throat and eyes : Normal. Neck : Supple with normal carotids. Lungs: POOR AIR ENTRY Heart : S1 & S2 normal with S4. No murmur. Abd : Soft non tender with normal bowel sounds. Neuro : Moves all ext. with no localized deficit. Ext : B/L LE EDEMA 2+, WITH CELLULITIS AND THICKENED SKIN/ CHRONIC STASIS DERMATITIS CHANGES Derm : No rashes or decubitus ulcer. LABS/RADIOLOGY: REVIEWED +VE D- DIMER 672 VIT D LEVEL 12.7 LOW bLOOD CULTURES NEGATIVE TO DATE. Objective - Vital Signs/Intake and Output Vital Signs (last 24 hours): Temp Pulse Resp BP Pulse Ox 97.5 F L 97 H 20 125/72 96 11/24/18 16:00 11/24/18 17:30 11/24/18 16:00 11/24/18 16:00 11/24/18 16:00 Intake and Output: 11/24/18 11/25/18 18:59 07:59 Intake Total 350 Balance 350 - Medications Medications: Current Medications Azithromycin (Zithromax) 500 mg PO DAILY [facility]; Protocol Last Admin: 11/24/18 09:35 Dose: 500 mg Ergocalciferol (Drisdol 50,000 Intl Units Cap) 1 cap PO Q7D [facility] Last Admin: 11/22/18 10:37 Dose: 1 cap Furosemide (Lasix) 40 mg IVP DAILY [facility] Last Admin: 11/24/18 09:36 Dose: 40 mg Guaifenesin/Dextromethorphan (Robitussin Dm) 10 ml PO TID PRN PRN Reason: Cough and congestion Last Admin: 11/24/18 17:59 Dose: 10 ml Tramadol HCl (Ultram) 50 mg PO Q6H PRN PRN Reason: Pain, severe (8-10) Last Admin: 11/24/18 22:05 Dose: 50 mg - Labs Labs: 11/21/18 08:02 11/21/18 08:02 PT 12.9 SECONDS (9.7-12.2) H 11/17/18 15:49 INR 1.2 11/17/18 15:49 APTT 38 SECONDS (21-34) H 11/17/18 15:49 Assessment and Plan (1) Dyspnea Status: Acute (2) Acute bronchitis Status: Acute (3) Bilateral lower leg cellulitis Status: Acute (4) Leg edema Status: Acute (5) Obesity hypoventilation syndrome Status: Acute (6) Vitamin D deficiency Status: Acute - Assessment and Plan (Free Text) Plan: CONTINUE iv ZOSYN 3.375 EVERY 8 HOURLY 11/17/18. ADD IV ZITHROMAX 500MG IVPB QD DAILY X 5DAYS 11/20/18 F/U DUPLEX VENOUS STUDIES.-P F/U CULTURES TO ADJUST ANTIBIOTICS. VIT D PER PMD ORDERED PICC LINE CARE. DIURESIS PER PMD. CASE DISCUSSED WITH THE STAFF.
[2018-11-25] MEDS: guaiFENesin DM 200 mg-20 mg/10 ml UD PO PRN ×2 (09:29→17:47)
--- NOTE | 2018-11-25 16:05 | CP.PCM.PN ---
Subjective - Date & Time of Evaluation Date of Evaluation: 11/25/18 Time of Evaluation: 10:15 - Subjective Subjective: clinically same Objective - Vital Signs/Intake and Output Vital Signs (last 24 hours): Temp Pulse Resp BP Pulse Ox 97.9 F 92 H 20 155/91 H 96 11/25/18 08:46 11/25/18 11:48 11/25/18 08:46 11/25/18 09:29 11/25/18 08:46 Intake and Output: 11/25/18 11/25/18 06:59 18:59 Intake Total 450 Balance 450 - Medications Medications: Current Medications Azithromycin (Zithromax) 500 mg PO DAILY [facility]; Protocol Last Admin: 11/25/18 09:30 Dose: 500 mg Ergocalciferol (Drisdol 50,000 Intl Units Cap) 1 cap PO Q7D [facility] Last Admin: 11/22/18 10:37 Dose: 1 cap Furosemide (Lasix) 40 mg IVP DAILY [facility] Last Admin: 11/25/18 09:29 Dose: 40 mg Guaifenesin/Dextromethorphan (Robitussin Dm) 10 ml PO TID PRN PRN Reason: Cough and congestion Last Admin: 11/25/18 09:29 Dose: 10 ml Tramadol HCl (Ultram) 50 mg PO Q6H PRN PRN Reason: Pain, severe (8-10) Last Admin: 11/25/18 09:30 Dose: 50 mg - Labs Labs: 11/21/18 08:02 11/21/18 08:02 PT 12.9 SECONDS (9.7-12.2) H 11/17/18 15:49 INR 1.2 11/17/18 15:49 APTT 38 SECONDS (21-34) H 11/17/18 15:49 - Constitutional Appears: Well - Head Exam Head Exam: ATRAUMATIC, NORMAL INSPECTION, NORMOCEPHALIC - Eye Exam Eye Exam: EOMI, Normal appearance, PERRL Pupil Exam: NORMAL ACCOMODATION, PERRL - ENT Exam ENT Exam: Mucous Membranes Moist, Normal Exam - Neck Exam Neck Exam: Full ROM, Normal Inspection. absent: Lymphadenopathy - Respiratory Exam Respiratory Exam: Decreased Breath Sounds - Cardiovascular Exam Cardiovascular Exam: REGULAR RHYTHM, +S1, +S2 - GI/Abdominal Exam GI & Abdominal Exam: Soft, Diminished Bowel Sounds - Rectal Exam Rectal Exam: Deferred
[2018-11-26] MEDS: guaiFENesin DM 200 mg-20 mg/10 ml UD PO PRN ×2 (11:03→22:00)
--- NOTE | 2018-11-26 13:08 | CP.PCM.PN ---
Subjective - Date & Time of Evaluation Date of Evaluation: 11/26/18 Time of Evaluation: 13:08 - Subjective Subjective: CHIEF COMPLAINTS TODAY : AFEBRILE, +VE COUGH +VE EXPECTORANT SCANTY. CXR TODAY 11/26/18 - NEW AIRSPACE DISEASE R LL EVOLVING PNEUMONIA. s/p SUSANNE PICC LINE. 11/20/18 ROS. HEENT : N. Resp : +VE cough,NASAL CONGESTION , NO wheezing ,pleuritic CP ,or hemoptysis Cardio : No anginal CP, PND, orthopnea, palpitation GI : No abd.pain, n/v ,diarrhea or GI bleeding . 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 Musculoskel : No joint swelling , Derm : No rash Psych : Normal affect. Ext : No swelling ,calf pain PE. Pt. is alert awake in no distress. V.S As noted in the chart Head ,ear nose,throat and eyes : Normal. Neck : Supple with normal carotids. Lungs: RT SIDE RHONCHI. Heart : S1 & S2 normal with S4. No murmur. Abd : Soft non tender with normal bowel sounds. Neuro : Moves all ext. with no localized deficit. Ext : B/L LE EDEMA 2+, WITH CELLULITIS AND THICKENED SKIN/ CHRONIC STASIS DERMATITIS CHANGES Derm : No rashes or decubitus ulcer. LABS/RADIOLOGY: REVIEWED +VE D- DIMER 672 VIT D LEVEL 12.7 LOW bLOOD CULTURES NEGATIVE TO DATE. Objective - Vital Signs/Intake and Output Vital Signs (last 24 hours): Temp Pulse Resp BP Pulse Ox 97.8 F 87 20 122/71 95 11/26/18 07:25 11/26/18 07:59 11/26/18 07:25 11/26/18 10:56 11/26/18 07:25 Intake and Output: 11/26/18 11/26/18 06:59 18:59 Intake Total 120 Output Total 350 Balance -230 - Medications Medications: Current Medications Ergocalciferol (Drisdol 50,000 Intl Units Cap) 1 cap PO Q7D [facility] Last Admin: 11/22/18 10:37 Dose: 1 cap Furosemide (Lasix) 40 mg IVP DAILY [facility] Last Admin: 11/26/18 10:56 Dose: 40 mg Guaifenesin/Dextromethorphan (Robitussin Dm) 10 ml PO TID PRN PRN Reason: Cough and congestion Last Admin: 11/26/18 11:03 Dose: 10 ml Tramadol HCl (Ultram) 50 mg PO Q6H PRN PRN Reason: Pain, severe (8-10) Last Admin: 11/26/18 11:03 Dose: 50 mg - Labs Labs: 11/21/18 08:02 11/21/18 08:02 PT 12.9 SECONDS (9.7-12.2) H 11/17/18 15:49 INR 1.2 11/17/18 15:49 APTT 38 SECONDS (21-34) H 11/17/18 15:49 Assessment and Plan (1) Pneumonia Status: Acute (2) Acute bronchitis Status: Acute (3) Dyspnea Status: Acute (4) Bilateral lower leg cellulitis Status: Acute (5) Leg edema Status: Acute (6) Obesity hypoventilation syndrome Status: Acute (7) Vitamin D deficiency Status: Acute - Assessment and Plan (Free Text) Plan: CONTINUE iv ZOSYN 3.375 EVERY 8 HOURLY 11/17/18. ADD IV ZITHROMAX 500MG IVPB QD DAILY 11/26/18 F/U DUPLEX VENOUS STUDIES.-P (11/24/18 ) F/U CULTURES TO ADJUST ANTIBIOTICS. VIT D PER PMD ORDERED PICC LINE CARE. DIURESIS PER PMD. CASE DISCUSSED WITH THE STAFF.
--- NOTE | 2018-11-26 15:48 | RAD ---
Date of service: 11/26/2018 PROCEDURE: CHEST RADIOGRAPH, 1 VIEW HISTORY: R/O PNEUMONIA COMPARISON: 11/17/2018. FINDINGS: LUNGS: The lungs are well inflated. There is new confluent airspace disease in the right lower lobe. The left lung is clear. PLEURA: No pneumothorax or pleural effusion. CARDIOVASCULAR: The heart is normal in size. No aortic atherosclerotic calcifications present. OSSEOUS STRUCTURES: Within normal limits for the patient's age. VISUALIZED UPPER ABDOMEN: Normal. OTHER FINDINGS: There is redemonstration of elevation of the right hemidiaphragm. IMPRESSION: New confluent airspace disease in the right lower lobe could represent developing pneumonia. Follow-up after medical management is recommended to ensure complete resolution.
--- NOTE | 2018-11-26 20:20 | CP.PCM.PN ---
Subjective - Date & Time of Evaluation Date of Evaluation: 11/26/18 Time of Evaluation: 09:45 - Subjective Subjective: clinically same Objective - Vital Signs/Intake and Output Vital Signs (last 24 hours): Temp Pulse Resp BP Pulse Ox 98 F 83 20 148/70 97 11/26/18 15:00 11/26/18 15:00 11/26/18 15:00 11/26/18 15:00 11/26/18 15:00 Intake and Output: 11/26/18 11/27/18 18:59 06:59 Intake Total 404 Output Total 0 Balance 404 - Medications Medications: Current Medications Ergocalciferol (Drisdol 50,000 Intl Units Cap) 1 cap PO Q7D [facility] Last Admin: 11/22/18 10:37 Dose: 1 cap Furosemide (Lasix) 40 mg IVP DAILY [facility] Last Admin: 11/26/18 10:56 Dose: 40 mg Guaifenesin/Dextromethorphan (Robitussin Dm) 10 ml PO TID PRN PRN Reason: Cough and congestion Last Admin: 11/26/18 11:03 Dose: 10 ml Tramadol HCl (Ultram) 50 mg PO Q6H PRN PRN Reason: Pain, severe (8-10) Last Admin: 11/26/18 11:03 Dose: 50 mg - Labs Labs: 11/21/18 08:02 11/21/18 08:02 PT 12.9 SECONDS (9.7-12.2) H 11/17/18 15:49 INR 1.2 11/17/18 15:49 APTT 38 SECONDS (21-34) H 11/17/18 15:49 - Constitutional Appears: Well - Head Exam Head Exam: ATRAUMATIC, NORMAL INSPECTION, NORMOCEPHALIC - Eye Exam Eye Exam: EOMI, Normal appearance, PERRL Pupil Exam: NORMAL ACCOMODATION, PERRL - ENT Exam ENT Exam: Mucous Membranes Moist, Normal Exam - Neck Exam Neck Exam: Full ROM, Normal Inspection. absent: Lymphadenopathy - Respiratory Exam Respiratory Exam: Decreased Breath Sounds - Cardiovascular Exam Cardiovascular Exam: REGULAR RHYTHM, +S1, +S2 - GI/Abdominal Exam GI & Abdominal Exam: Soft, Diminished Bowel Sounds - Rectal Exam Rectal Exam: Deferred
[2018-11-26] MEDS: Piperacill/Tazo 3.375gm in Dex 3.375 GM/50 ML BAG IVPB SCH (22:55)
[2018-11-27] MEDS: Azithromycin 500 MG in Sodium Chloride 0.9% 250 ML IVPB SCH (01:26)
[2018-11-27] MEDS: Piperacill/Tazo 3.375gm in Dex 3.375 GM/50 ML BAG IVPB SCH ×3 (06:22→21:21)
[2018-11-27 08:47] LABS: BASO % 0.4 % (0.0-2.0); EOS # 0.1 K/uL (0.0-0.7); EOS % 2.1 % (0.0-4.0); HEMOGLOBIN 13.1 g/dL (12.0-18.0); LYMPH # 1.1 K/uL (1.0-4.3); MEAN CELL VOLUME 79.3 fL (80.0-94.0); MEAN CORPUSCULAR HEMOGLOBIN 25.7 pg (27.0-31.0); MEAN CORPUSCULAR HGB CONC 32.4 g/dL (33.0-37.0); MEAN PLATELET VOLUME 7.5 fL (7.2-11.7); MONO # 0.5 K/uL (0.0-0.8); MONO % 6.4 % (0.0-10.0); NEUT # 5.4 K/uL (1.8-7.0); NEUT % 76.1 % (50.0-75.0); NRBC % 0.1 % (0.0-2.0); RBC 5.11 Mil/uL (4.40-5.90); RED CELL DISTRIBUTION WIDTH 16.2 % (11.5-14.5); WHITE BLOOD COUNT 7.1 K/uL (4.8-10.8)
[2018-11-27 08:55] LABS: ALB/GLOB RATIO 1.1 (1.0-2.1); ALBUMIN 3.7 g/dL (3.5-5.0); ALT/SGPT 21 U/L (21-72); AST/SGOT 25 U/L (17-59); BILIRUBIN,DIRECT 0.4 mg/dL (0.0-0.4); BLOOD UREA NITROGEN 12 mg/dL (9-20); CALCIUM 8.4 mg/dl (8.6-10.4); GFR NON-AFRICAN AMERICAN > 60
[2018-11-27] MEDS: guaiFENesin DM 200 mg-20 mg/10 ml UD PO PRN ×2 (10:07→18:07)
--- NOTE | 2018-11-27 15:05 | CP.PCM.PN ---
Subjective - Date & Time of Evaluation Date of Evaluation: 11/27/18 Time of Evaluation: 10:00 - Subjective Subjective: clinically same Objective - Vital Signs/Intake and Output Vital Signs (last 24 hours): Temp Pulse Resp BP Pulse Ox 97.8 F 89 20 127/71 96 11/27/18 08:33 11/27/18 08:33 11/27/18 08:33 11/27/18 10:08 11/27/18 08:33 Intake and Output: 11/27/18 11/27/18 06:59 18:59 Output Total 300 Balance -300 - Medications Medications: Current Medications Ergocalciferol (Drisdol 50,000 Intl Units Cap) 1 cap PO Q7D [facility] Last Admin: 11/22/18 10:37 Dose: 1 cap Furosemide (Lasix) 40 mg IVP DAILY [facility] Last Admin: 11/27/18 10:08 Dose: 40 mg Guaifenesin/Dextromethorphan (Robitussin Dm) 10 ml PO TID PRN PRN Reason: Cough and congestion Last Admin: 11/27/18 10:07 Dose: 10 ml Piperacillin Sod/Tazobactam Sod (Zosyn 3.375 Gm Iv Premix) 3.375 gm in 50 mls @ 100 mls/hr IVPB Q8H [facility]; Protocol Last Admin: 11/27/18 13:27 Dose: 100 mls/hr Azithromycin 500 mg/ Sodium (Chloride) 250 mls @ 250 mls/hr IVPB Q24H [facility]; Protocol Last Admin: 11/27/18 01:26 Dose: 250 mls/hr Tramadol HCl (Ultram) 50 mg PO Q6H PRN PRN Reason: Pain, severe (8-10) Last Admin: 11/27/18 10:07 Dose: 50 mg - Labs Labs: 11/27/18 08:31 11/27/18 08:31 PT 12.9 SECONDS (9.7-12.2) H 11/17/18 15:49 INR 1.2 11/17/18 15:49 APTT 38 SECONDS (21-34) H 11/17/18 15:49
--- NOTE | 2018-11-27 23:48 | CP.PCM.PN ---
Subjective - Date & Time of Evaluation Date of Evaluation: 11/27/18 Time of Evaluation: 23:48 - Subjective Subjective: CHIEF COMPLAINTS TODAY : AFEBRILE, +VE COUGH STATES CFEELS CONGESTED CXR 11/26/18 - NEW AIRSPACE DISEASE R LL EVOLVING PNEUMONIA. s/p SUSANNE PICC LINE. 11/20/18 ROS. HEENT : N. Resp : +VE COUGH NON PRODUCTIVE , NO wheezing ,pleuritic CP ,or hemoptysis Cardio : No anginal CP, PND, orthopnea, palpitation GI : No abd.pain, n/v ,diarrhea or GI bleeding . HEEL TRIMMER : No headache, vertigo, focal deficit. Musculoskel : No joint swelling , Derm : No rash Psych : Normal affect. Ext : No swelling ,calf pain PE. Pt. is alert awake in no distress. V.S As noted in the chart Head ,ear nose,throat and eyes : Normal. Neck : Supple with normal carotids. Lungs: RT SIDE RHONCHI. Heart : S1 & S2 normal with S4. No murmur. Abd : Soft non tender with normal bowel sounds. Neuro : Moves all ext. with no localized deficit. Ext : B/L LE EDEMA 2+, WITH CELLULITIS AND THICKENED SKIN/ CHRONIC STASIS DERMATITIS CHANGES Derm : No rashes or decubitus ulcer. LABS/RADIOLOGY: REVIEWED SPUTUM - N REGULO ? SPIT +VE D- DIMER 672 VIT D LEVEL 12.7 LOW BLOOD CULTURES NEGATIVE TO DATE. Objective - Vital Signs/Intake and Output Vital Signs (last 24 hours): Temp Pulse Resp BP Pulse Ox 98.4 F 99 H 20 116/66 97 11/27/18 15:33 11/27/18 15:33 11/27/18 15:33 11/27/18 15:33 11/27/18 15:33 Intake and Output: 11/27/18 11/28/18 18:59 06:59 Intake Total 600 Output Total 1600 Balance -1000 - Medications Medications: Current Medications Ergocalciferol (Drisdol 50,000 Intl Units Cap) 1 cap PO Q7D [facility] Last Admin: 11/22/18 10:37 Dose: 1 cap Furosemide (Lasix) 40 mg IVP DAILY [facility] Last Admin: 11/27/18 10:08 Dose: 40 mg Guaifenesin/Dextromethorphan (Robitussin Dm) 10 ml PO TID PRN PRN Reason: Cough and congestion Last Admin: 11/27/18 18:07 Dose: 10 ml Piperacillin Sod/Tazobactam Sod (Zosyn 3.375 Gm Iv Premix) 3.375 gm in 50 mls @ 100 mls/hr IVPB Q8H [facility]; Protocol Last Admin: 11/27/18 21:21 Dose: 100 mls/hr Azithromycin 500 mg/ Sodium (Chloride) 250 mls @ 250 mls/hr IVPB Q24H [facility]; Protocol Last Admin: 11/27/18 01:26 Dose: 250 mls/hr Tramadol HCl (Ultram) 50 mg PO Q6H PRN PRN Reason: Pain, severe (8-10) Last Admin: 11/27/18 10:07 Dose: 50 mg - Labs Labs: 11/27/18 08:31 11/27/18 08:31 PT 12.9 SECONDS (9.7-12.2) H 11/17/18 15:49 INR 1.2 11/17/18 15:49 APTT 38 SECONDS (21-34) H 11/17/18 15:49 Assessment and Plan (1) Pneumonia Status: Acute (2) Acute bronchitis Status: Acute (3) Dyspnea Status: Acute (4) Bilateral lower leg cellulitis Status: Acute (5) Leg edema Status: Acute (6) Obesity hypoventilation syndrome Status: Acute (7) Vitamin D deficiency Status: Acute - Assessment and Plan (Free Text) Plan: CONTINUE iv ZOSYN 3.375 EVERY 8 HOURLY 11/17/18. CONTINUE IV ZITHROMAX 500MG IVPB QD DAILY 11/26/18 F/U DUPLEX VENOUS STUDIES.-P (11/24/18 )-P F/U CXR ON MONDAY.11/29/18 PRO-CALCITONIN IN A.M. pRObnp IN A.M. mrsa SCREEN IN A.M. VIT D PER PMD ORDERED PICC LINE CARE. DIURESIS PER PMD. CASE DISCUSSED WITH THE STAFF.
[2018-11-28] MEDS: Azithromycin 500 MG in Sodium Chloride 0.9% 250 ML IVPB SCH (01:54)
[2018-11-28] MEDS: Piperacill/Tazo 3.375gm in Dex 3.375 GM/50 ML BAG IVPB SCH ×3 (06:23→22:15)
[2018-11-28] MEDS: guaiFENesin DM 200 mg-20 mg/10 ml UD PO PRN (09:26)
--- NOTE | 2018-11-28 19:43 | CP.PCM.PN ---
Subjective - Date & Time of Evaluation Date of Evaluation: 11/28/18 Time of Evaluation: 09:30 - Subjective Subjective: clinically same Objective - Vital Signs/Intake and Output Vital Signs (last 24 hours): Temp Pulse Resp BP Pulse Ox 97.2 F L 88 20 138/76 98 11/28/18 15:00 11/28/18 15:00 11/28/18 15:00 11/28/18 15:00 11/28/18 15:00 Intake and Output: 11/28/18 11/29/18 18:59 06:59 Intake Total 400 Output Total 3000 Balance -2600 - Medications Medications: Current Medications Ergocalciferol (Drisdol 50,000 Intl Units Cap) 1 cap PO Q7D [facility] Last Admin: 11/22/18 10:37 Dose: 1 cap Furosemide (Lasix) 40 mg IVP DAILY [facility] Last Admin: 11/28/18 09:26 Dose: 40 mg Guaifenesin/Dextromethorphan (Robitussin Dm) 10 ml PO TID PRN PRN Reason: Cough and congestion Last Admin: 11/28/18 09:26 Dose: 10 ml Piperacillin Sod/Tazobactam Sod (Zosyn 3.375 Gm Iv Premix) 3.375 gm in 50 mls @ 100 mls/hr IVPB Q8H [facility]; Protocol Last Admin: 11/28/18 13:40 Dose: 100 mls/hr Azithromycin 500 mg/ Sodium (Chloride) 250 mls @ 250 mls/hr IVPB Q24H [facility]; Protocol Last Admin: 11/28/18 01:54 Dose: 250 mls/hr Tramadol HCl (Ultram) 50 mg PO Q6H PRN PRN Reason: Pain, severe (8-10) Last Admin: 11/28/18 09:26 Dose: 50 mg - Labs Labs: 11/27/18 08:31 11/27/18 08:31 PT 12.9 SECONDS (9.7-12.2) H 11/17/18 15:49 INR 1.2 11/17/18 15:49 APTT 38 SECONDS (21-34) H 11/17/18 15:49 - Constitutional Appears: Well - Head Exam Head Exam: ATRAUMATIC, NORMAL INSPECTION, NORMOCEPHALIC - Eye Exam Eye Exam: EOMI, Normal appearance, PERRL Pupil Exam: NORMAL ACCOMODATION, PERRL - ENT Exam ENT Exam: Mucous Membranes Moist, Normal Exam - Neck Exam Neck Exam: Full ROM, Normal Inspection. absent: Lymphadenopathy - Respiratory Exam Respiratory Exam: Decreased Breath Sounds - Cardiovascular Exam Cardiovascular Exam: REGULAR RHYTHM, +S1, +S2 - GI/Abdominal Exam GI & Abdominal Exam: Soft, Diminished Bowel Sounds - Rectal Exam Rectal Exam: Deferred
--- NOTE | 2018-11-28 22:43 | CP.PCM.PN ---
Subjective - Date & Time of Evaluation Date of Evaluation: 11/28/18 Time of Evaluation: 22:43 - Subjective Subjective: CHIEF COMPLAINTS TODAY : AFEBRILE, less+VE COUGH resting, having his meals CXR 11/26/18 - NEW AIRSPACE DISEASE R LL EVOLVING PNEUMONIA. s/p SUSANNE PICC LINE. 11/20/18 ROS. HEENT : N. Resp : +VE COUGH NON PRODUCTIVE , NO wheezing ,pleuritic CP ,or hemoptysis Cardio : No anginal CP, PND, orthopnea, palpitation GI : No abd.pain, n/v ,diarrhea or GI bleeding . 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 Musculoskel : No joint swelling , Derm : No rash Psych : Normal affect. Ext : No swelling ,calf pain PE. Pt. is alert awake in no distress. V.S As noted in the chart Head ,ear nose,throat and eyes : Normal. Neck : Supple with normal carotids. Lungs: RT SIDE RHONCHI. Heart : S1 & S2 normal with S4. No murmur. Abd : Soft non tender with normal bowel sounds. Neuro : Moves all ext. with no localized deficit. Ext : B/L LE EDEMA 2+, WITH CELLULITIS AND THICKENED SKIN/ CHRONIC STASIS DERMATITIS CHANGES Derm : No rashes or decubitus ulcer. LABS/RADIOLOGY: REVIEWED probnp normal PROCALCITONIN -N SPUTUM - N REGULO ? SPIT +VE D- DIMER 672 VIT D LEVEL 12.7 LOW BLOOD CULTURES NEGATIVE X 5 DAYS Objective - Vital Signs/Intake and Output Vital Signs (last 24 hours): Temp Pulse Resp BP Pulse Ox 97.2 F L 88 20 138/76 98 11/28/18 15:00 11/28/18 15:00 11/28/18 15:00 11/28/18 15:00 11/28/18 15:00 Intake and Output: 11/28/18 11/29/18 18:59 06:59 Intake Total 400 Output Total 3000 Balance -2600 - Medications Medications: Current Medications Ergocalciferol (Drisdol 50,000 Intl Units Cap) 1 cap PO Q7D [facility] Last Admin: 11/22/18 10:37 Dose: 1 cap Furosemide (Lasix) 40 mg IVP DAILY [facility] Last Admin: 11/28/18 09:26 Dose: 40 mg Guaifenesin/Dextromethorphan (Robitussin Dm) 10 ml PO TID PRN PRN Reason: Cough and congestion Last Admin: 11/28/18 09:26 Dose: 10 ml Piperacillin Sod/Tazobactam Sod (Zosyn 3.375 Gm Iv Premix) 3.375 gm in 50 mls @ 100 mls/hr IVPB Q8H [facility]; Protocol Last Admin: 11/28/18 22:15 Dose: 100 mls/hr Azithromycin 500 mg/ Sodium (Chloride) 250 mls @ 250 mls/hr IVPB Q24H [facility]; Protocol Last Admin: 11/28/18 01:54 Dose: 250 mls/hr Tramadol HCl (Ultram) 50 mg PO Q6H PRN PRN Reason: Pain, severe (8-10) Last Admin: 11/28/18 09:26 Dose: 50 mg - Labs Labs: 11/27/18 08:31 11/27/18 08:31 PT 12.9 SECONDS (9.7-12.2) H 11/17/18 15:49 INR 1.2 11/17/18 15:49 APTT 38 SECONDS (21-34) H 11/17/18 15:49 Assessment and Plan (1) Pneumonia Status: Acute (2) Acute bronchitis Status: Acute (3) Dyspnea Status: Acute (4) Bilateral lower leg cellulitis Status: Acute (5) Leg edema Status: Acute (6) Obesity hypoventilation syndrome Status: Acute (7) Vitamin D deficiency Status: Acute - Assessment and Plan (Free Text) Plan: CONTINUE iv ZOSYN 3.375 EVERY 8 HOURLY 11/17/18. CONTINUE IV ZITHROMAX 500MG IVPB QD DAILY 11/26/18 F/U DUPLEX VENOUS STUDIES.-P (11/24/18 )- STILL PENDING TILL TODAY 11/28/18 F/U CXR ON MONDAY.11/29/18 . VIT D PER PMD ORDERED PICC LINE CARE. CASE DISCUSSED WITH STAFF /RN SPOOL SANDER F/U CXR IN AM
[2018-11-29] MEDS: Azithromycin 500 MG in Sodium Chloride 0.9% 250 ML IVPB SCH (01:10)
[2018-11-29] MEDS: Piperacill/Tazo 3.375gm in Dex 3.375 GM/50 ML BAG IVPB SCH ×2 (05:13→14:35)
[2018-11-29] MEDS: guaiFENesin DM 200 mg-20 mg/10 ml UD PO PRN (09:55)
[2018-11-29] MEDS: Ergocalciferol 50,000 Intl Units Cap PO SCH (09:56)
--- NOTE | 2018-11-29 12:24 | CP.PCM.PN ---
Subjective - Date & Time of Evaluation Date of Evaluation: 11/29/18 Time of Evaluation: 12:24 - Subjective Subjective: CHIEF COMPLAINTS TODAY : AFEBRILE, NO COMPLAINTS REPEAT CXR 11/29 NOTED ATELECTASIS VS OPACITY PATIENT BODY HABITUS HUGE -PROBABLE ATELECTASIS. CXR 11/26/18 - NEW AIRSPACE DISEASE R LL EVOLVING PNEUMONIA. s/p SUSANNE PICC LINE. 11/20/18 ROS. HEENT : N. Resp : MINIMAL COUGH , NO wheezing ,pleuritic CP ,or hemoptysis Cardio : No anginal CP, PND, orthopnea, palpitation GI : No abd.pain, n/v ,diarrhea or GI bleeding . KA[place]WHINA KURA [place] MAORI : No headache, vertigo, focal deficit. Musculoskel : No joint swelling , Derm : No rash Psych : Normal affect. Ext : No swelling ,calf pain PE. Pt. is alert awake in no distress. V.S As noted in the chart Head ,ear nose,throat and eyes : Normal. Neck : Supple with normal carotids. Lungs: BETTER AERATION, DECREASED BREATH SOUNDS . Heart : S1 & S2 normal with S4. No murmur. Abd : Soft non tender with normal bowel sounds. Neuro : Moves all ext. with no localized deficit. Ext : B/L LE EDEMA 1+, WITH THICKENED SKIN/ CHRONIC STASIS DERMATITIS CHANGES Derm : No rashes or decubitus ulcer. LABS/RADIOLOGY: REVIEWED probnp normal PROCALCITONIN -N SPUTUM - N REGULO VIT D LEVEL 12.7 LOW BLOOD CULTURES NEGATIVE X 5 DAYS Objective - Vital Signs/Intake and Output Vital Signs (last 24 hours): Temp Pulse Resp BP Pulse Ox 98.0 F 86 20 125/83 97 11/29/18 08:42 11/29/18 08:42 11/29/18 08:42 11/29/18 09:58 11/29/18 08:42 - Medications Medications: Current Medications Ergocalciferol (Drisdol 50,000 Intl Units Cap) 1 cap PO Q7D [facility] Last Admin: 11/29/18 09:56 Dose: 1 cap Furosemide (Lasix) 40 mg IVP DAILY [facility] Last Admin: 11/29/18 09:58 Dose: 40 mg Guaifenesin/Dextromethorphan (Robitussin Dm) 10 ml PO TID PRN PRN Reason: Cough and congestion Last Admin: 11/29/18 09:55 Dose: 10 ml Piperacillin Sod/Tazobactam Sod (Zosyn 3.375 Gm Iv Premix) 3.375 gm in 50 mls @ 100 mls/hr IVPB Q8H [facility]; Protocol Last Admin: 11/29/18 05:13 Dose: 100 mls/hr Azithromycin 500 mg/ Sodium (Chloride) 250 mls @ 250 mls/hr IVPB Q24H [facility]; Protocol Last Admin: 11/29/18 01:10 Dose: 250 mls/hr Tramadol HCl (Ultram) 50 mg PO Q6H PRN PRN Reason: Pain, severe (8-10) Last Admin: 11/29/18 09:56 Dose: 50 mg - Labs Labs: 11/27/18 08:31 11/27/18 08:31 PT 12.9 SECONDS (9.7-12.2) H 11/17/18 15:49 INR 1.2 11/17/18 15:49 APTT 38 SECONDS (21-34) H 11/17/18 15:49 Assessment and Plan (1) Pneumonia Status: Acute (2) Acute bronchitis Status: Acute (3) Dyspnea Status: Acute (4) Bilateral lower leg cellulitis Status: Acute (5) Leg edema Status: Acute (6) Obesity hypoventilation syndrome Status: Acute (7) Vitamin D deficiency Status: Acute - Assessment and Plan (Free Text) Plan: PLAN. PATIENT CLINICALLY IMPROVED . DC ALL ABX. VIT D PER PMD . PATIENT ENCOURAGED NOT TO SMOKE.. PER ATTENDING PT BEING DISCHARGED TODAY TO FOLLOW CLOSELY BY PMD NEXT WEEK.
--- NOTE | 2018-11-29 13:42 | RAD ---
Date of service: 11/29/2018 PROCEDURE: CHEST RADIOGRAPH, 1 VIEW HISTORY: F/U PNEUMONIA COMPARISON: 11/26/2018 FINDINGS: LUNGS: The asymmetrically elevated right hemidiaphragm status is hree produced. The linear opacity overlying the right hemidiaphragm previously probably superimposed on the right hemidiaphragm below it superior contour on this exam. Subsegmental atelectasis and/or infiltrate is compatible with this. Subsegmental atelectasis is favored. Correlate clinically with additional testing and assessment. The elevated right hemidiaphragm can accentuate and/or predispose for right basal atelectatic changes as well. PLEURA: No pneumothorax or pleural fluid seen. CARDIOVASCULAR: No aortic atherosclerotic calcification present. Normal. OSSEOUS STRUCTURES: No significant abnormalities. VISUALIZED UPPER ABDOMEN: Normal. OTHER FINDINGS: None. IMPRESSION: The subsegmental opacity at the right lung base in this patient with a asymmetrically elevated right hemidiaphragm is still identified it is nevertheless believed to be projecting over the right hemidiaphragm below its cephalad contour. Subsegmental atelectasis is favored. However an infiltrate also with atelectasis is not excluded. Correlation clinically with patient's other laboratory findings and clinical presentation is recommended. Continued surveillance recommended.
[2018-11-29 16:15] VITALS: BP 117/72; PULSE 78; TEMP 97.8; O2SAT 98
--- NOTE | 2018-11-29 17:19 | PCM.HF ---
Heart Failure Core Measure - Heart Failure Ejection Fraction: 40 % or Greater JORGE Inhibitor Prescribed: No Contraindication/Reason for not providing: EF>45 Beta-Alice Prescribed: Carvedilol Angiotensin II Receptor Alice Prescribed: No Contraindication/Reason for not providing: EF>45 AnticoagulationTherapy for Atrial Fibrillation/Atrialflutter: No Contraindication/Reason for not providing: NO HX OF a fib Aldosterone Antagonist Prescribed: No Contraindication/Reason for not providing: ef>45 Hydralazine Nitrate Prescribed: No Contraindication/Reason for not providing: ef>45 Implantable Cardioverter Defibrillator Therapy: No Contraindication/Reason for not providing: EF>45 Cardiac Resynchronization Therapy Prescribed: No Contraindication/Reason for not providing: EF>45 - Follow up Will be discharged to: Home Follow Up Date (must be within 7 days from discharge): 12/04/18 Follow Up Time: 14:00
--- NOTE | 2018-11-29 17:50 | CP.PCM.PN ---
Subjective - Date & Time of Evaluation Date of Evaluation: 11/29/18 Time of Evaluation: 10:15 - Subjective Subjective: clinically same Objective - Vital Signs/Intake and Output Vital Signs (last 24 hours): Temp Pulse Resp BP Pulse Ox 97.8 F 78 20 117/72 98 11/29/18 15:12 11/29/18 15:12 11/29/18 15:12 11/29/18 15:12 11/29/18 15:12 - Medications Medications: Current Medications Ergocalciferol (Drisdol 50,000 Intl Units Cap) 1 cap PO Q7D [facility] Last Admin: 11/29/18 09:56 Dose: 1 cap Furosemide (Lasix) 40 mg IVP DAILY [facility] Last Admin: 11/29/18 09:58 Dose: 40 mg Guaifenesin/Dextromethorphan (Robitussin Dm) 10 ml PO TID PRN PRN Reason: Cough and congestion Last Admin: 11/29/18 09:55 Dose: 10 ml Piperacillin Sod/Tazobactam Sod (Zosyn 3.375 Gm Iv Premix) 3.375 gm in 50 mls @ 100 mls/hr IVPB Q8H [facility]; Protocol Last Admin: 11/29/18 14:35 Dose: 100 mls/hr Azithromycin 500 mg/ Sodium (Chloride) 250 mls @ 250 mls/hr IVPB Q24H [facility]; Protocol Last Admin: 11/29/18 01:10 Dose: 250 mls/hr Tramadol HCl (Ultram) 50 mg PO Q6H PRN PRN Reason: Pain, severe (8-10) Last Admin: 11/29/18 09:56 Dose: 50 mg - Labs Labs: 11/27/18 08:31 11/27/18 08:31 PT 12.9 SECONDS (9.7-12.2) H 11/17/18 15:49 INR 1.2 11/17/18 15:49 APTT 38 SECONDS (21-34) H 11/17/18 15:49 - Constitutional Appears: Well - Head Exam Head Exam: ATRAUMATIC, NORMAL INSPECTION, NORMOCEPHALIC - Eye Exam Eye Exam: EOMI, Normal appearance, PERRL Pupil Exam: NORMAL ACCOMODATION, PERRL - ENT Exam ENT Exam: Mucous Membranes Moist, Normal Exam - Neck Exam Neck Exam: Full ROM, Normal Inspection. absent: Lymphadenopathy - Respiratory Exam Respiratory Exam: Decreased Breath Sounds - Cardiovascular Exam Cardiovascular Exam: REGULAR RHYTHM, +S1, +S2 - GI/Abdominal Exam GI & Abdominal Exam: Soft, Diminished Bowel Sounds - Rectal Exam Rectal Exam: Deferred
== END 2018-11-29 20:35 | disposition home or self-care (01) | DRG 563 ==
LOC: C.ER 14:48 → C.9E 16:50 → C.6T 17:45
PROVIDERS: ADMIT Internal Medicine Nephrology; ATTEND Internal Medicine Nephrology
PROC: 05HY33Z Insertion of Infusion Device into Upper Vein, Percutaneous Approach (ICD-10-PCS; principal; 2018-11-21)
DX: L03.115 Cellulitis of right lower limb (principal); J18.9 Pneumonia, unspecified organism; E66.2 Morbid (severe) obesity with alveolar hypoventilation; J44.0 Chronic obstructive pulmonary disease with (acute) lower respiratory infection; J98.11 Atelectasis; I11.0 Hypertensive heart disease with heart failure; L03.116 Cellulitis of left lower limb; E55.9 Vitamin D deficiency, unspecified; G47.30 Sleep apnea, unspecified; L30.4 Erythema intertrigo; F17.210 Nicotine dependence, cigarettes, uncomplicated; J20.9 Acute bronchitis, unspecified; Z68.45 Body mass index [BMI] 70 or greater, adult

== ENCOUNTER 2018-12-11 23:13 | Observation (INO) | payer MEDICAID ==
[2018-12-11 23:13] VITALS: BMI 70.4
[2018-12-12 00:37] LABS: BASO # 0.1 K/uL (0.0-0.2); BASO % 0.8 % (0.0-2.0); EOS # 0.2 K/uL (0.0-0.7); EOS % 1.7 % (0.0-4.0); HEMOGLOBIN 12.2 g/dL (12.0-18.0); LYMPH % 21.8 % (20.0-40.0); MEAN CELL VOLUME 79.3 fL (80.0-94.0); MEAN CORPUSCULAR HEMOGLOBIN 26.5 pg (27.0-31.0); MEAN CORPUSCULAR HGB CONC 33.5 g/dL (33.0-37.0); MONO # 0.7 K/uL (0.0-0.8); MONO % 7.7 % (0.0-10.0); NEUT # 6.1 K/uL (1.8-7.0); NRBC % 0.1 % (0.0-2.0); RBC 4.59 Mil/uL (4.40-5.90); RED CELL DISTRIBUTION WIDTH 16.6 % (11.5-14.5)
--- NOTE | 2018-12-12 00:48 | C.PDOC ---
History Of Present Illness 43 year old male, homeless, Hx of chronic edema, morbid obesity, and HTN, presents for evaluation of worsening right leg swelling. Patient reportedly started on lasix as per PMD. Patient is in no acute distress at this time, resting on his phone. Denies other complaints. Time Seen by Provider: 12/12/18 00:00 Chief Complaint (Nursing): Lower Extremity Problem/Injury History Per: Patient History/Exam Limitations: no limitations Onset/Duration Of Symptoms: Days Current Symptoms Are (Timing): Still Present Recent travel outside of the [place]: No Past Medical History Reviewed: Historical Data, Nursing Documentation, Vital Signs Vital Signs: Last Vital Signs Temp 98.4 F 12/11/18 23:39 Pulse 92 H 12/11/18 23:39 Resp 18 12/11/18 23:39 BP 166/81 H 12/11/18 23:39 Pulse Ox 99 12/11/18 23:39 - Medical History PMH: Anxiety, Bronchitis, CHF, COPD, Depression, HTN, Peripheral Edema, Pneumonia Denies: Deep Vein Thrombosis, Chronic Kidney Disease Surgical History: Denies: Pacemaker - [facility] Procedures CHANGE PRESSURE DRESSING ON ABDOMINAL WALL (11/16/17) DRAINAGE OF ABDOMINAL WALL, OPEN APPROACH (11/16/17) DRAINAGE OF L PLEURAL CAV WITH DRAIN DEV, PERC APPROACH (11/16/17) DRAINAGE OF LEFT PLEURAL CAVITY, PERCUTANEOUS APPROACH (11/16/17) EXCISION OF ABD SUBCU/FASCIA, OPEN APPROACH (11/16/17) EXCISION OF ABDOMINAL WALL, OPEN APPROACH (11/16/17) EXCISION OF CHEST SUBCU/FASCIA, OPEN APPROACH (11/16/17) INSERT OF INFUSION DEV INTO R CEPHALIC VEIN, PERC APPROACH (07/11/18) INSERTION OF INFUSION DEV INTO SUP VENA CAVA, PERC APPROACH (08/08/18) INSERTION OF INFUSION DEVICE INTO UPPER VEIN, PERC APPROACH (11/17/18) Family History: States: No Known Family Hx - Social History Hx Tobacco Use: Yes (light smoker) Hx Alcohol Use: Yes Hx Substance Use: Yes - Immunization History Hx Tetanus Toxoid Vaccination: No Hx Influenza Vaccination: No Hx Pneumococcal Vaccination: Yes Review Of Systems Constitutional: Negative for: Fever, Chills Cardiovascular: Negative for: Chest Pain, Palpitations Respiratory: Negative for: Cough, Shortness of Breath Gastrointestinal: Negative for: Nausea, Vomiting Musculoskeletal: Positive for: Other (Worsening right leg swelling) Neurological: Negative for: Weakness, Numbness Physical Exam - Physical Exam Appears: Non-toxic, Other (Morbidly obese) Skin: Normal Color, Warm Head: Atraumatic, Normacephalic Eye(s): bilateral: Normal Inspection Oral Mucosa: Moist Chest: Symmetrical, No Tenderness Cardiovascular: Rhythm Regular Respiratory: Normal Breath Sounds, No Rales, No Rhonchi, No Wheezing Gastrointestinal/Abdominal: Soft, No Tenderness Extremity: Pedal Edema (Bilateral) Neurological/Psych: Oriented x3, Normal Speech ED Course And Treatment - Laboratory Results Result Diagrams: 12/12/18 00:34 12/12/18 01:03 ECG: Interpreted By Me, Viewed By Me ECG Rhythm: Sinus Rhythm ECG Interpretation: Normal Interpretation Of ECG: No ST/T wave changes Rate From EC O2 Sat by Pulse Oximetry: 99 (Room air) Pulse Ox Interpretation: Normal Medical Decision Making Medical Decision Making: ro dvt. no cardiopulm complaints in nad in er Plan: * EKG * Blood work * CXR dimer elevated dscussed with dr de león. will obs for dvt study as pt homeless poor support Disposition - Disposition Disposition: HOSPITALIZED Disposition Time: 03:00 Condition: STABLE - Clinical Impression Clinical Impression: Leg swelling - Scribe Statement The provider has reviewed the documentation as recorded by the Scribe Raleigh Galvan All medical record entries made by the Scribe were at my direction and personally dictated by me. I have reviewed the chart and agree that the record accurately reflects my personal performance of the history, physical exam, medical decision making, and the department course for this patient. I have also personally directed, reviewed, and agree with the discharge instructions and disposition. Decision To Admit - Pt Status Changed To: Hospital Disposition Of: Observation - . Bed Request Type: Regular Admitting Physician: Ky De León Patient Diagnosis: Leg swelling
[2018-12-12 01:35] LABS: ALB/GLOB RATIO 1.3 (1.0-2.1); ALBUMIN 3.6 g/dL (3.5-5.0); ALT/SGPT 12 U/L (21-72); AST/SGOT 21 U/L (17-59); B-TYPE NATRIURETIC PEPTIDE 215 pg/mL (0-450); BLOOD UREA NITROGEN 10 mg/dL (9-20); CALCIUM 8.2 mg/dl (8.6-10.4); GFR NON-AFRICAN AMERICAN > 60
[2018-12-12 02:12] LABS: INR 1.2; PROTHROMBIN TIME 13.2 SECONDS (9.7-12.2)
[2018-12-12] MEDS ORDERED: Enoxaparin 150 mg Syringe SC STA (02:15)
[2018-12-12] MEDS ORDERED: Albuterol HFA 90 mcg/actuation (8 g) INH PRN (09:12)
[2018-12-12] MEDS ORDERED: Ergocalciferol 50,000 Intl Units Cap PO SCH (09:30)
[2018-12-12] MEDS: Pantoprazole 40 mg EC Tab PO SCH (10:02)
[2018-12-12] MEDS: Potassium Chloride 20 mEq ER Tab PO SCH (10:02)
--- NOTE | 2018-12-12 11:12 | RAD ---
Date of service: 12/12/2018 PROCEDURE: CHEST RADIOGRAPH, 1 VIEW HISTORY: chest pain COMPARISON: 11/29/2018. FINDINGS: LUNGS: Clear. PLEURA: No pneumothorax or pleural fluid seen. CARDIOVASCULAR: No aortic atherosclerotic calcification present. No radiographic findings to suggest acute or significant cardiovascular disease. OSSEOUS STRUCTURES: No significant abnormalities. VISUALIZED UPPER ABDOMEN: Normal. OTHER FINDINGS: None. IMPRESSION: No active disease. No acute/significant interval changes.
--- NOTE | 2018-12-12 19:38 | CP.PCM.HP ---
Past Patient History - Infectious Disease Hx of Infectious Diseases: None - Past Medical History & Family History Past Medical History?: Yes - Past Social History Smoking Status: Light Smoker < 10 Cigarettes Daily - CARDIAC Hx Congestive Heart Failure: Yes Hx Hypertension: Yes - PULMONARY Hx Chronic Obstructive Pulmonary Disease (COPD): Yes - NEUROLOGICAL Hx Neurological Disorder: No - HEENT Hx HEENT Problems: No - RENAL Hx Chronic Kidney Disease: No - ENDOCRINE/METABOLIC Hx Endocrine Disorders: Yes Other/Comment: Obesity - HEMATOLOGICAL/ONCOLOGICAL Hx Cancer: No - INTEGUMENTARY Hx Dermatological Problems: Yes Hx Cellulitis: Yes - MUSCULOSKELETAL/RHEUMATOLOGICAL Hx Musculoskeletal Disorders: No - GASTROINTESTINAL Hx Gastrointestinal Disorders: No - GENITOURINARY/GYNECOLOGICAL Hx Genitourinary Disorders: No - PSYCHIATRIC Hx Anxiety: Yes Hx Depression: Yes Hx Substance Use: Yes - SURGICAL HISTORY Hx Surgeries: Yes Hx Mastectomy: No Other/Comment: abdominal surgery 2017 - ANESTHESIA Hx Anesthesia: Yes Hx Anesthesia Reactions: No Hx Malignant Hyperthermia: No Meds Allergies/Adverse Reactions: Allergies Allergy/AdvReac Type Severity Reaction Status Date / Time No Known Allergies Allergy Verified 12/11/18 23:27 Physical Exam - Constitutional Appears: Well - Head Exam Head Exam: ATRAUMATIC, NORMAL INSPECTION, NORMOCEPHALIC - Eye Exam Eye Exam: EOMI, Normal appearance, PERRL Pupil Exam: NORMAL ACCOMODATION, PERRL - ENT Exam ENT Exam: Mucous Membranes Moist, Normal Exam - Neck Exam Neck exam: Positive for: Normal Inspection - Respiratory Exam Respiratory Exam: Decreased Breath Sounds - Cardiovascular Exam Cardiovascular Exam: REGULAR RHYTHM, +S1, +S2 - GI/Abdominal Exam GI & Abdominal Exam: Diminished Bowel Sounds, Soft - Rectal Exam Rectal Exam: Deferred Results - Vital Signs Recent Vital Signs: Last Vital Signs Temp 98.0 F 12/12/18 16:00 Pulse 93 H 12/12/18 16:00 Resp 22 12/12/18 16:00 BP 128/74 12/12/18 16:00 Pulse Ox 98 12/12/18 16:00 - Labs Result Diagrams: 12/12/18 00:34 12/12/18 01:03 Labs: Laboratory Results - last 24 hr 12/12/18 12/12/18 12/12/18 00:34 00:34 01:03 WBC 9.0 RBC 4.59 Hgb 12.2 Hct 36.4 MCV 79.3 L MCH 26.5 L MCHC 33.5 RDW 16.6 H Plt Count 277 D MPV 8.0 Neut % (Auto) 68.0 Lymph % (Auto) 21.8 Randolph % (Auto) 7.7 Eos % (Auto) 1.7 Baso % (Auto) 0.8 Neut # (Auto) 6.1 Lymph # (Auto) 2.0 Randolph # (Auto) 0.7 Eos # (Auto) 0.2 Baso # (Auto) 0.1 PT Cancelled INR Cancelled APTT Cancelled D-Dimer, Quantitative Cancelled Sodium 135 Potassium 3.6 Chloride 101 Carbon Dioxide 31 H Anion Gap 7 L BUN 10 Creatinine 0.8 Est GFR ( Amer) > 60 Est GFR (Non-Af Amer) > 60 Random Glucose 98 Calcium 8.2 L Phosphorus 3.8 Magnesium 1.8 Total Bilirubin 0.6 AST 21 ALT 12 L D Alkaline Phosphatase 134 H D Troponin I < 0.0120 NT-Pro-B Natriuret Pep 215 Total Protein 6.4 Albumin 3.6 Globulin 2.8 Albumin/Globulin Ratio 1.3 12/12/18 01:56 WBC RBC Hgb Hct MCV MCH MCHC RDW Plt Count MPV Neut % (Auto) Lymph % (Auto) Randolph % (Auto) Eos % (Auto) Baso % (Auto) Neut # (Auto) Lymph # (Auto) Randolph # (Auto) Eos # (Auto) Baso # (Auto) PT 13.2 H INR 1.2 APTT 33 D-Dimer, Quantitative 454 H Sodium Potassium Chloride Carbon Dioxide Anion Gap BUN Creatinine Est GFR ( Amer) Est GFR (Non-Af Amer) Random Glucose Calcium Phosphorus Magnesium Total Bilirubin AST ALT Alkaline Phosphatase Troponin I NT-Pro-B Natriuret Pep Total Protein Albumin Globulin Albumin/Globulin Ratio
[2018-12-13 01:47] VITALS: RESP 20
[2018-12-13] MEDS: Potassium Chloride 20 mEq ER Tab PO SCH (11:02)
[2018-12-13] MEDS: Pantoprazole 40 mg EC Tab PO SCH (11:02)
--- NOTE | 2018-12-13 14:34 | CP.PCM.PN ---
Subjective - Date & Time of Evaluation Date of Evaluation: 12/13/18 - Subjective Subjective: patient evaluated today denies nausea, SOB, fever, diarrhea no vomiting no dizziness Objective - Vital Signs/Intake and Output Vital Signs (last 24 hours): Temp Pulse Resp BP Pulse Ox 97.2 F L 86 20 129/78 98 12/13/18 07:10 12/13/18 07:10 12/13/18 07:10 12/13/18 11:03 12/13/18 07:10 - Medications Medications: Current Medications Albuterol (Ventolin Hfa 90 Mcg/Actuation (8 G)) 1 puff INH QID PRN PRN Reason: Wheezing Carvedilol (Coreg) 6.25 mg PO BID [facility] Last Admin: 12/13/18 11:02 Dose: 6.25 mg Ergocalciferol (Drisdol 50,000 Intl Units Cap) 1 cap PO Q7D [facility] Last Admin: 12/12/18 10:01 Dose: 1 cap Furosemide (Lasix) 40 mg IVP DAILY [facility] Last Admin: 12/13/18 11:03 Dose: 40 mg Heparin Sodium (Porcine) (Heparin) 5,000 units SC Q8 [facility] Last Admin: 12/12/18 21:03 Dose: 5,000 units Ibuprofen (Motrin Tab) 600 mg PO TID PRN PRN Reason: pain Last Admin: 12/13/18 11:07 Dose: 600 mg Losartan Potassium (Cozaar) 25 mg PO DAILY [facility] Last Admin: 12/13/18 11:03 Dose: 25 mg Montelukast Sodium (Singulair) 10 mg PO DAILY [facility] Last Admin: 12/13/18 11:02 Dose: 10 mg Pantoprazole Sodium (Protonix Ec Tab) 40 mg PO DAILY [facility] Last Admin: 12/13/18 11:02 Dose: 40 mg Potassium Chloride (K-Dur 20 Meq Er Tab) 20 meq PO DAILY [facility] Last Admin: 12/13/18 11:02 Dose: 20 meq - Labs Labs: 12/12/18 00:34 12/12/18 01:03 PT 13.2 SECONDS (9.7-12.2) H 12/12/18 01:56 INR 1.2 12/12/18 01:56 APTT 33 SECONDS (21-34) 12/12/18 01:56 - Constitutional Appears: Well - Head Exam Head Exam: ATRAUMATIC, NORMAL INSPECTION, NORMOCEPHALIC - Eye Exam Eye Exam: EOMI, Normal appearance, PERRL Pupil Exam: NORMAL ACCOMODATION, PERRL - ENT Exam ENT Exam: Mucous Membranes Moist, Normal Exam - Neck Exam Neck Exam: Full ROM, Normal Inspection. absent: Lymphadenopathy - Respiratory Exam Respiratory Exam: Decreased Breath Sounds - Cardiovascular Exam Cardiovascular Exam: REGULAR RHYTHM, +S1, +S2 - GI/Abdominal Exam GI & Abdominal Exam: Soft, Diminished Bowel Sounds - Rectal Exam Rectal Exam: Deferred Assessment and Plan - Assessment and Plan (Free Text) Plan: patient examined today medications reviewed labs reviewed vitals reviewed zaid rodarte 50,000 intl units cap heparin k-dur 20meq er tab lasix mortin tab protonix ec tab singulair ventolin hfa 90mcg/actuation 8 G
[2018-12-14] MEDS: Pantoprazole 40 mg EC Tab PO SCH (09:00)
[2018-12-14] MEDS: Potassium Chloride 20 mEq ER Tab PO SCH (09:00)
[2018-12-14] MEDS: Promethazine/Cod 6.25mg-10mg/5ml Syr UD PO SCH (17:53)
--- NOTE | 2018-12-14 20:01 | CP.PCM.PN ---
Subjective - Date & Time of Evaluation Date of Evaluation: 12/14/18 - Subjective Subjective: patient examined today patient is awake and alert denies SOB, denies nausea, vomiting, diarrhea, fever, nausea Objective - Vital Signs/Intake and Output Vital Signs (last 24 hours): Temp Pulse Resp BP Pulse Ox 97.8 F 80 20 133/73 95 12/14/18 15:00 12/14/18 15:00 12/14/18 15:00 12/14/18 17:53 12/14/18 15:00 Intake and Output: 12/14/18 12/15/18 18:59 06:59 Intake Total 400 Balance 400 - Medications Medications: Current Medications Albuterol (Ventolin Hfa 90 Mcg/Actuation (8 G)) 1 puff INH QID PRN PRN Reason: Wheezing Carvedilol (Coreg) 6.25 mg PO BID [facility] Last Admin: 12/14/18 17:53 Dose: 6.25 mg Ergocalciferol (Drisdol 50,000 Intl Units Cap) 1 cap PO Q7D [facility] Last Admin: 12/12/18 10:01 Dose: 1 cap Furosemide (Lasix) 40 mg IVP BID [facility] Last Admin: 12/14/18 17:53 Dose: 40 mg Heparin Sodium (Porcine) (Heparin) 5,000 units SC Q8 [facility] Last Admin: 12/14/18 14:17 Dose: 5,000 units Ibuprofen (Motrin Tab) 600 mg PO TID PRN PRN Reason: pain Last Admin: 12/14/18 15:34 Dose: 600 mg Losartan Potassium (Cozaar) 25 mg PO DAILY [facility] Last Admin: 12/14/18 09:00 Dose: 25 mg Montelukast Sodium (Singulair) 10 mg PO DAILY [facility] Last Admin: 12/14/18 09:00 Dose: 10 mg Pantoprazole Sodium (Protonix Ec Tab) 40 mg PO DAILY [facility] Last Admin: 12/14/18 09:00 Dose: 40 mg Potassium Chloride (K-Dur 20 Meq Er Tab) 20 meq PO DAILY [facility] Last Admin: 12/14/18 09:00 Dose: 20 meq Promethazine HCl/Codeine (Phenergan/Codeine Oral Syrup) 10 ml PO BID [facility] Last Admin: 12/14/18 17:53 Dose: 10 ml - Labs Labs: 12/12/18 00:34 12/12/18 01:03 PT 13.2 SECONDS (9.7-12.2) H 12/12/18 01:56 INR 1.2 12/12/18 01:56 APTT 33 SECONDS (21-34) 12/12/18 01:56 - Constitutional Appears: Well - Head Exam Head Exam: ATRAUMATIC, NORMAL INSPECTION, NORMOCEPHALIC - Eye Exam Eye Exam: EOMI, Normal appearance, PERRL Pupil Exam: NORMAL ACCOMODATION, PERRL - ENT Exam ENT Exam: Mucous Membranes Moist, Normal Exam - Neck Exam Neck Exam: Full ROM, Normal Inspection. absent: Lymphadenopathy - Respiratory Exam Respiratory Exam: Decreased Breath Sounds - Cardiovascular Exam Cardiovascular Exam: REGULAR RHYTHM, +S1, +S2 - GI/Abdominal Exam GI & Abdominal Exam: Soft, Diminished Bowel Sounds - Rectal Exam Rectal Exam: Deferred Assessment and Plan - Assessment and Plan (Free Text) Plan: patient evaluated today xray reviewed vitals reviewed medications reviewed labs reviewed alia rodarte 50,000 intl units cap coreg heparin k-dur 20 mEQ Er tab lasix motrin tab phenergan/codeine oral protonix ec tab singulair ventolin hfa 90 mcg/actuation 8g
[2018-12-15 00:11] VITALS: O2SAT 98
[2018-12-15 08:07] VITALS: PULSE 82; TEMP 97.7
[2018-12-15 08:50] LABS: BASO % 0.5 % (0.0-2.0); EOS # 0.4 K/uL (0.0-0.7); EOS % 6.2 % (0.0-4.0); HEMOGLOBIN 13.2 g/dL (12.0-18.0); LYMPH # 1.7 K/uL (1.0-4.3); LYMPH % 23.8 % (20.0-40.0); MEAN CELL VOLUME 79.8 fL (80.0-94.0); MEAN CORPUSCULAR HGB CONC 32.6 g/dL (33.0-37.0); MONO # 0.6 K/uL (0.0-0.8); MONO % 8.5 % (0.0-10.0); NEUT # 4.4 K/uL (1.8-7.0); NRBC % 0.1 % (0.0-2.0); RBC 5.08 Mil/uL (4.40-5.90); RED CELL DISTRIBUTION WIDTH 16.6 % (11.5-14.5); WHITE BLOOD COUNT 7.3 K/uL (4.8-10.8)
[2018-12-15 09:07] LABS: ALB/GLOB RATIO 1.2 (1.0-2.1); ALBUMIN 3.6 g/dL (3.5-5.0); ALT/SGPT 23 U/L (21-72); AST/SGOT 48 U/L (17-59); BLOOD UREA NITROGEN 11 mg/dL (9-20); CALCIUM 8.8 mg/dl (8.6-10.4); GFR NON-AFRICAN AMERICAN > 60
[2018-12-15] MEDS: Pantoprazole 40 mg EC Tab PO SCH (09:16)
[2018-12-15] MEDS: Potassium Chloride 20 mEq ER Tab PO SCH (09:16)
[2018-12-15 09:17] VITALS: BP 120/65
[2018-12-15] MEDS: Promethazine/Cod 6.25mg-10mg/5ml Syr UD PO SCH (09:17)
--- NOTE | 2018-12-15 13:18 | CP.PCM.PN ---
Subjective - Date & Time of Evaluation Date of Evaluation: 12/15/18 Time of Evaluation: 13:17 - Subjective Subjective: PATIENT SEEN AND EXAMINED AT THE BEDSIDE Objective - Vital Signs/Intake and Output Vital Signs (last 24 hours): Temp Pulse Resp BP Pulse Ox 97.7 F 82 20 120/65 98 12/15/18 07:00 12/15/18 07:00 12/15/18 07:00 12/15/18 09:17 12/15/18 10:58 Intake and Output: 12/15/18 12/15/18 06:59 18:59 Output Total 900 Balance -900 - Medications Medications: Current Medications Albuterol (Ventolin Hfa 90 Mcg/Actuation (8 G)) 1 puff INH QID PRN PRN Reason: Wheezing Carvedilol (Coreg) 6.25 mg PO BID [facility] Last Admin: 12/15/18 09:16 Dose: 6.25 mg Ergocalciferol (Drisdol 50,000 Intl Units Cap) 1 cap PO Q7D [facility] Last Admin: 12/12/18 10:01 Dose: 1 cap Furosemide (Lasix) 40 mg IVP BID [facility] Last Admin: 12/15/18 09:17 Dose: 40 mg Heparin Sodium (Porcine) (Heparin) 5,000 units SC Q8 [facility] Last Admin: 12/15/18 06:29 Dose: 5,000 units Ibuprofen (Motrin Tab) 600 mg PO TID PRN PRN Reason: pain Last Admin: 12/14/18 15:34 Dose: 600 mg Losartan Potassium (Cozaar) 25 mg PO DAILY [facility] Last Admin: 12/15/18 09:16 Dose: 25 mg Montelukast Sodium (Singulair) 10 mg PO DAILY [facility] Last Admin: 12/15/18 09:16 Dose: 10 mg Pantoprazole Sodium (Protonix Ec Tab) 40 mg PO DAILY [facility] Last Admin: 12/15/18 09:16 Dose: 40 mg Potassium Chloride (K-Dur 20 Meq Er Tab) 20 meq PO DAILY [facility] Last Admin: 12/15/18 09:16 Dose: 20 meq Promethazine HCl/Codeine (Phenergan/Codeine Oral Syrup) 10 ml PO BID [facility] Last Admin: 12/15/18 09:17 Dose: 10 ml - Labs Labs: 12/15/18 08:30 12/15/18 08:30 PT 13.2 SECONDS (9.7-12.2) H 12/12/18 01:56 INR 1.2 12/12/18 01:56 APTT 33 SECONDS (21-34) 12/12/18 01:56 Assessment and Plan - Assessment and Plan (Free Text) Assessment: FOLLOW UP WITH DR Leonides JAMES IN HIS OFFICE -----CALL FOR APPOINTMENT CONTINUE HOME MEDICATION NEW PRESCRIPTION GIVEN LOSARTAN 25 MG PO DAILY [facility] CALL DR Leonides JAMES OR GO TO THE EMERGENCY ROOM IF SYMPTOM RETURN OR WORSENING
--- NOTE | 2018-12-16 22:00 | CARD ---
APPROVED REPORT Date of service: 12/12/2018 EKG Measurement Heart [id number] <Conclusion> Normal sinus rhythm Normal ECG
== END 2018-12-15 14:36 | disposition home or self-care (01) ==
LOC: C.ER 23:13 → C.9E 12-12 02:10 → UNDOADMOB 12-12 02:10 → C.9E 12-12 02:19 → C.6T 12-12 02:50
PROVIDERS: ADMIT Internal Medicine Nephrology; ATTEND Internal Medicine Nephrology
DX: I11.0 Hypertensive heart disease with heart failure (principal); I50.9 Heart failure, unspecified; J44.9 Chronic obstructive pulmonary disease, unspecified; Z59.0 Homelessness; E66.01 Morbid (severe) obesity due to excess calories; Z79.899 Other long term (current) drug therapy; Z87.891 Personal history of nicotine dependence; F32.9 Major depressive disorder, single episode, unspecified; F41.9 Anxiety disorder, unspecified
CPT/HCPCS: 36415; 71045; 80053; 83735; 83880; 84100; 84484; 85025; 85378; 85610; 85730; 93005; 96372; 97116; 97162; 99285; G0378; G8978; G8979; J1644; J1650; J1940

== ENCOUNTER 2018-12-27 23:09 | Observation (INO) | payer MEDICAID ==
[2018-12-27 23:09] VITALS: BMI 70.4
--- NOTE | 2018-12-28 00:20 | C.PDOC ---
History Of Present Illness 43 year old male with long Hx of chronic edema to his legs presents for worsening edema for the past week. Patient was recently admitted for leg edema, does not remember what test were done but states he was discharged with lasix. Molly guillory reports he lost the pills and received a new Rx but then lost his wallet with the Rx in it has not taken his lasix in a week. denies new leg injury, chest pain, or SOB. Patient is able to ambulate but since his legs have gotten so swollen he has difficulty sitting and standing since it is hard to bend his legs. He does not report any pain, just swelling which he reports has spread further up his leg and now into his groin area. Time Seen by Provider: 12/27/18 23:32 Chief Complaint (Nursing): Lower Extremity Problem/Injury History Per: Patient History/Exam Limitations: no limitations Onset/Duration Of Symptoms: Days Current Symptoms Are (Timing): Still Present Recent travel outside of the [place]: No Past Medical History Reviewed: Historical Data, Nursing Documentation, Vital Signs Vital Signs: Last Vital Signs Temp 98.4 F 12/27/18 23:12 Pulse 90 12/27/18 23:12 Resp 18 12/27/18 23:12 BP Pulse Ox 98 12/27/18 23:12 - Medical History PMH: Anxiety, Bronchitis, CHF, COPD, Depression, HTN, Peripheral Edema, Pneumonia Denies: Deep Vein Thrombosis, Chronic Kidney Disease Surgical History: Denies: Pacemaker - [facility] Procedures CHANGE PRESSURE DRESSING ON ABDOMINAL WALL (11/16/17) DRAINAGE OF ABDOMINAL WALL, OPEN APPROACH (11/16/17) DRAINAGE OF L PLEURAL CAV WITH DRAIN DEV, PERC APPROACH (11/16/17) DRAINAGE OF LEFT PLEURAL CAVITY, PERCUTANEOUS APPROACH (11/16/17) EXCISION OF ABD SUBCU/FASCIA, OPEN APPROACH (11/16/17) EXCISION OF ABDOMINAL WALL, OPEN APPROACH (11/16/17) EXCISION OF CHEST SUBCU/FASCIA, OPEN APPROACH (11/16/17) INSERT OF INFUSION DEV INTO R CEPHALIC VEIN, PERC APPROACH (07/11/18) INSERTION OF INFUSION DEV INTO SUP VENA CAVA, PERC APPROACH (08/08/18) INSERTION OF INFUSION DEVICE INTO UPPER VEIN, PERC APPROACH (11/17/18) Family History: States: No Known Family Hx - Social History Hx Tobacco Use: Yes (light smoker) Hx Alcohol Use: Yes Hx Substance Use: Yes - Immunization History Hx Tetanus Toxoid Vaccination: No Hx Influenza Vaccination: No Hx Pneumococcal Vaccination: Yes Review Of Systems Constitutional: Negative for: Fever, Chills Cardiovascular: Negative for: Chest Pain Respiratory: Negative for: Shortness of Breath Gastrointestinal: Negative for: Nausea, Vomiting Genitourinary: Negative for: Dysuria, Hematuria Musculoskeletal: Positive for: Other (Leg swelling). Negative for: Leg Pain Skin: Negative for: Rash Neurological: Negative for: Weakness, Numbness Physical Exam - Physical Exam Appears: Non-toxic, Other (Morbidly obese) Skin: Warm Head: Atraumatic, Normacephalic Eye(s): bilateral: Normal Inspection Oral Mucosa: Moist Chest: Symmetrical, No Tenderness Cardiovascular: Rhythm Regular Respiratory: Normal Breath Sounds, No Rales, No Rhonchi, No Wheezing Gastrointestinal/Abdominal: Soft, No Tenderness Extremity: Capillary Refill (<2 seconds), Other (Severe 2+ pitting edema to bilateral lower extremities ) Pulses: Left Dorsalis Pedis: Normal, Right Dorsalis Pedis: Normal Neurological/Psych: Oriented x3, Normal Speech ED Course And Treatment - Laboratory Results Result Diagrams: 12/28/18 02:24 12/28/18 02:24 O2 Sat by Pulse Oximetry: 98 Medical Decision Making Medical Decision Making: Plan: * Blood work * Lasix Patient given lasix 40mg ivp. Labs done and results reviewed. Will admit to Dr. Leonides Todd's service for diuresis, given that patient has been off Lasix since previous admission. Disposition - Disposition Disposition: HOSPITALIZED Disposition Time: 03:00 Condition: GOOD - Clinical Impression Clinical Impression: Swelling of both lower extremities - Scribe Statement The provider has reviewed the documentation as recorded by the Scribe Raleigh Galvan All medical record entries made by the Scribe were at my direction and pers onally dictated by me. I have reviewed the chart and agree that the record accurately reflects my personal performance of the history, physical exam, medical decision making, and the department course for this patient. I have also personally directed, reviewed, and agree with the discharge instructions and disposition.
[2018-12-28 02:35] LABS: BASO # 0.1 K/uL (0.0-0.2); BASO % 0.7 % (0.0-2.0); EOS # 0.2 K/uL (0.0-0.7); EOS % 2.3 % (0.0-4.0); HEMOGLOBIN 11.9 g/dL (12.0-18.0); LYMPH % 23.7 % (20.0-40.0); MEAN CELL VOLUME 79.9 fL (80.0-94.0); MEAN CORPUSCULAR HGB CONC 32.6 g/dL (33.0-37.0); MEAN PLATELET VOLUME 7.9 fL (7.2-11.7); MONO # 0.7 K/uL (0.0-0.8); MONO % 8.2 % (0.0-10.0); NEUT # 5.6 K/uL (1.8-7.0); NEUT % 65.1 % (50.0-75.0); RBC 4.57 Mil/uL (4.40-5.90); RED CELL DISTRIBUTION WIDTH 16.4 % (11.5-14.5); WHITE BLOOD COUNT 8.6 K/uL (4.8-10.8)
[2018-12-28 02:50] LABS: B-TYPE NATRIURETIC PEPTIDE 164 pg/mL (0-450)
[2018-12-28 02:55] LABS: BLOOD UREA NITROGEN 9 mg/dL (9-20); CALCIUM 8.3 mg/dl (8.6-10.4); GFR NON-AFRICAN AMERICAN > 60
[2018-12-28 04:39] VITALS: RESP 20
[2018-12-28] MEDS: Potassium Chloride 20 mEq ER Tab PO SCH (11:04)
[2018-12-28] MEDS: Enoxaparin 40 mg Syringe SC SCH (11:04)
[2018-12-28] MEDS: Pantoprazole 40 mg EC Tab PO SCH (15:38)
--- NOTE | 2018-12-28 19:47 | CP.PCM.HP ---
Past Patient History - Infectious Disease Hx of Infectious Diseases: None - Past Medical History & Family History Past Medical History?: Yes - Past Social History Smoking Status: Light Smoker < 10 Cigarettes Daily - CARDIAC Hx Congestive Heart Failure: Yes Hx Hypertension: Yes Hx Pacemaker: No Hx Peripheral Edema: Yes - PULMONARY Hx Bronchitis: Yes Hx Chronic Obstructive Pulmonary Disease (COPD): Yes Hx Pneumonia: Yes - NEUROLOGICAL Hx Neurological Disorder: No - HEENT Hx HEENT Problems: No - RENAL Hx Chronic Kidney Disease: No - ENDOCRINE/METABOLIC Hx Endocrine Disorders: Yes Other/Comment: Obesity - HEMATOLOGICAL/ONCOLOGICAL Hx Cancer: No - INTEGUMENTARY Hx Dermatological Problems: Yes Hx Cellulitis: Yes - MUSCULOSKELETAL/RHEUMATOLOGICAL Hx Musculoskeletal Disorders: No - GASTROINTESTINAL Hx Gastrointestinal Disorders: No - GENITOURINARY/GYNECOLOGICAL Hx Genitourinary Disorders: No - PSYCHIATRIC Hx Anxiety: Yes Hx Depression: Yes Hx Substance Use: Yes - SURGICAL HISTORY Hx Surgeries: Yes Hx Mastectomy: No Other/Comment: abdominal surgery 2017 - ANESTHESIA Hx Anesthesia: Yes Hx Anesthesia Reactions: No Hx Malignant Hyperthermia: No Meds Allergies/Adverse Reactions: Allergies Allergy/AdvReac Type Severity Reaction Status Date / Time No Known Allergies Allergy Verified 12/27/18 23:24 Physical Exam - Constitutional Appears: Well - Head Exam Head Exam: ATRAUMATIC, NORMAL INSPECTION, NORMOCEPHALIC - Eye Exam Eye Exam: EOMI, Normal appearance, PERRL Pupil Exam: NORMAL ACCOMODATION, PERRL - ENT Exam ENT Exam: Mucous Membranes Moist, Normal Exam - Neck Exam Neck exam: Positive for: Normal Inspection - Respiratory Exam Respiratory Exam: Decreased Breath Sounds - Cardiovascular Exam Cardiovascular Exam: REGULAR RHYTHM, +S1, +S2 - GI/Abdominal Exam GI & Abdominal Exam: Diminished Bowel Sounds, Soft - Rectal Exam Rectal Exam: Deferred Results - Vital Signs Recent Vital Signs: Last Vital Signs Temp 98.4 F 12/28/18 16:00 Pulse 91 H 12/28/18 16:00 Resp 20 12/28/18 16:00 BP 157/97 H 12/28/18 16:00 Pulse Ox 97 12/28/18 16:00 - Labs Result Diagrams: 12/28/18 02:24 12/28/18 02:24 Labs: Laboratory Results - last 24 hr 12/28/18 12/28/18 12/28/18 02:24 02:24 07:12 WBC 8.6 RBC 4.57 Hgb 11.9 L Hct 36.5 MCV 79.9 L MCH 26.0 L MCHC 32.6 L RDW 16.4 H Plt Count 291 MPV 7.9 Neut % (Auto) 65.1 Lymph % (Auto) 23.7 [place] % (Auto) 8.2 Eos % (Auto) 2.3 Baso % (Auto) 0.7 Neut # (Auto) 5.6 Lymph # (Auto) 2.0 [place] # (Auto) 0.7 Eos # (Auto) 0.2 Baso # (Auto) 0.1 Sodium 136 Potassium 3.8 Chloride 102 Carbon Dioxide 30 Anion Gap 8 L BUN 9 Creatinine 0.7 L Est GFR ( Amer) > 60 Est GFR (Non-Af Amer) > 60 POC Glucose (mg/dL) 92 Random Glucose 98 Calcium 8.3 L NT-Pro-B Natriuret Pep 164
[2018-12-29] MEDS: Potassium Chloride 20 mEq ER Tab PO SCH (09:21)
[2018-12-29] MEDS: Pantoprazole 40 mg EC Tab PO SCH (09:21)
[2018-12-29] MEDS: Enoxaparin 40 mg Syringe SC SCH (09:22)
--- NOTE | 2018-12-29 15:19 | CP.PCM.PN ---
Subjective - Date & Time of Evaluation Date of Evaluation: 12/29/18 - Subjective Subjective: patient examined at bedside today no nausea no vomiting no fever no diarrhea denies shortness of breath Objective - Vital Signs/Intake and Output Vital Signs (last 24 hours): Temp Pulse Resp BP Pulse Ox 97.8 F 98 H 20 130/68 96 12/29/18 07:49 12/29/18 07:49 12/29/18 07:49 12/29/18 11:36 12/29/18 07:49 - Medications Medications: Current Medications Enoxaparin Sodium (Lovenox) 40 mg SC DAILY [facility] Last Admin: 12/29/18 09:22 Dose: 40 mg Furosemide (Lasix) 40 mg PO BID [facility] Pantoprazole Sodium (Protonix Ec Tab) 40 mg PO DAILY [facility] Last Admin: 12/29/18 09:21 Dose: 40 mg Potassium Chloride (K-Dur 20 Meq Er Tab) 20 meq PO DAILY [facility] Last Admin: 12/29/18 09:21 Dose: 20 meq Tramadol HCl (Ultram) 50 mg PO TID PRN PRN Reason: Pain, moderate (4-7) Last Admin: 12/29/18 06:17 Dose: 50 mg - Labs Labs: 12/28/18 02:24 12/28/18 02:24 - Constitutional Appears: Well - Head Exam Head Exam: ATRAUMATIC, NORMAL INSPECTION, NORMOCEPHALIC - Eye Exam Eye Exam: EOMI, Normal appearance, PERRL Pupil Exam: NORMAL ACCOMODATION, PERRL - ENT Exam ENT Exam: Mucous Membranes Moist, Normal Exam - Neck Exam Neck Exam: Full ROM, Normal Inspection. absent: Lymphadenopathy - Respiratory Exam Respiratory Exam: Decreased Breath Sounds - Cardiovascular Exam Cardiovascular Exam: REGULAR RHYTHM, +S1, +S2 - GI/Abdominal Exam GI & Abdominal Exam: Soft, Diminished Bowel Sounds - Rectal Exam Rectal Exam: Deferred - Neurological Exam Neurological Exam: Oriented x3 Assessment and Plan - Assessment and Plan (Free Text) Plan: medications reviewed labs reviewed vitals reviewed k-dur lasix lovenox protonix ec tab ultram
[2018-12-30] MEDS: Pantoprazole 40 mg EC Tab PO SCH (09:11)
[2018-12-30] MEDS: Enoxaparin 40 mg Syringe SC SCH (09:11)
[2018-12-30] MEDS: Potassium Chloride 20 mEq ER Tab PO SCH (09:12)
--- NOTE | 2018-12-30 20:38 | CP.PCM.PN ---
Subjective - Date & Time of Evaluation Date of Evaluation: 12/30/18 - Subjective Subjective: patient seen and examined today no nausea no vomiting no diarrhea no fever no dizziness no shortness of breath Objective - Vital Signs/Intake and Output Vital Signs (last 24 hours): Temp Pulse Resp BP Pulse Ox 97.9 F 79 20 125/78 98 12/30/18 15:55 12/30/18 15:55 12/30/18 15:55 12/30/18 17:09 12/30/18 15:55 Intake and Output: 12/30/18 12/31/18 18:59 06:59 Intake Total 400 Balance 400 - Medications Medications: Current Medications Enoxaparin Sodium (Lovenox) 40 mg SC DAILY [facility] Last Admin: 12/30/18 09:11 Dose: 40 mg Furosemide (Lasix) 40 mg PO BID [facility] Last Admin: 12/30/18 17:09 Dose: 40 mg Pantoprazole Sodium (Protonix Ec Tab) 40 mg PO DAILY [facility] Last Admin: 12/30/18 09:11 Dose: 40 mg Potassium Chloride (K-Dur 20 Meq Er Tab) 20 meq PO DAILY [facility] Last Admin: 12/30/18 09:12 Dose: 20 meq Tramadol HCl (Ultram) 50 mg PO TID PRN PRN Reason: Pain, moderate (4-7) Last Admin: 12/29/18 17:36 Dose: 50 mg - Labs Labs: 12/28/18 02:24 12/28/18 02:24 - Constitutional Appears: Well - Head Exam Head Exam: ATRAUMATIC, NORMAL INSPECTION, NORMOCEPHALIC - Eye Exam Eye Exam: EOMI, Normal appearance, PERRL Pupil Exam: NORMAL ACCOMODATION, PERRL - ENT Exam ENT Exam: Mucous Membranes Moist, Normal Exam - Neck Exam Neck Exam: Full ROM, Normal Inspection. absent: Lymphadenopathy - Respiratory Exam Respiratory Exam: Decreased Breath Sounds - Cardiovascular Exam Cardiovascular Exam: REGULAR RHYTHM, +S1, +S2 - GI/Abdominal Exam GI & Abdominal Exam: Soft, Diminished Bowel Sounds - Rectal Exam Rectal Exam: Deferred - Neurological Exam Neurological Exam: Oriented x3 Assessment and Plan - Assessment and Plan (Free Text) Plan: medications reivewed labs reviewed vitals reviewed k-dur 20 meq Er tab lasix lovenox protonix ec tab ultram Continue IV Lasix Follow-up with the acquisition consultant possible discharge tomorrow after social services help patient may need a midline if he is not discharged tomorrow for the IV Lasix patient understands
[2018-12-31] MEDS: Potassium Chloride 20 mEq ER Tab PO SCH (09:48)
[2018-12-31] MEDS: Pantoprazole 40 mg EC Tab PO SCH (09:48)
[2018-12-31] MEDS: Enoxaparin 40 mg Syringe SC SCH (09:48)
--- NOTE | 2018-12-31 14:31 | CP.PCM.PN ---
Subjective - Date & Time of Evaluation Date of Evaluation: 12/31/18 - Subjective Subjective: patient examined brigid no nausea no vomiting no diarrhea no fever no dizziness no sob Objective - Vital Signs/Intake and Output Vital Signs (last 24 hours): Temp Pulse Resp BP Pulse Ox 98.4 F 88 20 118/72 96 12/31/18 08:18 12/31/18 08:18 12/31/18 08:18 12/31/18 12:46 12/31/18 11:42 - Medications Medications: Current Medications Enoxaparin Sodium (Lovenox) 40 mg SC DAILY [facility] Last Admin: 12/31/18 09:48 Dose: 40 mg Furosemide (Lasix) 80 mg PO BID [facility] Pantoprazole Sodium (Protonix Ec Tab) 40 mg PO DAILY [facility] Last Admin: 12/31/18 09:48 Dose: 40 mg Potassium Chloride (K-Dur 20 Meq Er Tab) 20 meq PO DAILY [facility] Last Admin: 12/31/18 09:48 Dose: 20 meq Tramadol HCl (Ultram) 50 mg PO TID PRN PRN Reason: Pain, moderate (4-7) Last Admin: 12/30/18 17:40 Dose: 50 mg - Labs Labs: 12/28/18 02:24 12/28/18 02:24 - Constitutional Appears: Well - Head Exam Head Exam: ATRAUMATIC, NORMAL INSPECTION, NORMOCEPHALIC - Eye Exam Eye Exam: EOMI, Normal appearance, PERRL Pupil Exam: NORMAL ACCOMODATION, PERRL - ENT Exam ENT Exam: Mucous Membranes Moist, Normal Exam - Neck Exam Neck Exam: Full ROM, Normal Inspection. absent: Lymphadenopathy - Respiratory Exam Respiratory Exam: Decreased Breath Sounds - Cardiovascular Exam Cardiovascular Exam: REGULAR RHYTHM, +S1, +S2 - GI/Abdominal Exam GI & Abdominal Exam: Soft, Diminished Bowel Sounds - Rectal Exam Rectal Exam: Deferred - Neurological Exam Neurological Exam: Oriented x3 Assessment and Plan - Assessment and Plan (Free Text) Plan: medications reviewed labs reviewed vitals reviewed k-dur 20 meq Er tab lasix lovenox protonix ec tab ultram
[2019-01-01 08:06] VITALS: O2SAT 98
[2019-01-01] MEDS: Potassium Chloride 20 mEq ER Tab PO SCH (09:25)
[2019-01-01] MEDS: Pantoprazole 40 mg EC Tab PO SCH (09:26)
[2019-01-01] MEDS: Enoxaparin 40 mg Syringe SC SCH (09:26)
--- NOTE | 2019-01-01 15:47 | CP.PCM.PN ---
Subjective - Date & Time of Evaluation Date of Evaluation: 01/01/19 Time of Evaluation: 16:24 - Subjective Subjective: pt is alert and oriented with no s/s of acute distress at this time Objective - Vital Signs/Intake and Output Vital Signs (last 24 hours): Temp Pulse Resp BP Pulse Ox 97.9 F 86 20 135/70 98 01/01/19 08:05 01/01/19 08:05 01/01/19 08:05 01/01/19 09:26 01/01/19 08:05 Intake and Output: 01/01/19 01/01/19 06:59 18:59 Intake Total 400 Balance 400 - Medications Medications: Current Medications Enoxaparin Sodium (Lovenox) 40 mg SC DAILY [facility] Last Admin: 01/01/19 09:26 Dose: 40 mg Furosemide (Lasix) 80 mg PO BID [facility] Last Admin: 01/01/19 09:26 Dose: 80 mg Pantoprazole Sodium (Protonix Ec Tab) 40 mg PO DAILY [facility] Last Admin: 01/01/19 09:26 Dose: 40 mg Potassium Chloride (K-Dur 20 Meq Er Tab) 20 meq PO DAILY [facility] Last Admin: 01/01/19 09:25 Dose: 20 meq Tramadol HCl (Ultram) 50 mg PO TID PRN PRN Reason: Pain, moderate (4-7) Last Admin: 12/30/18 17:40 Dose: 50 mg - Labs Labs: 12/28/18 02:24 12/28/18 02:24 Assessment and Plan - Assessment and Plan (Free Text) Assessment: 43 year old male that presented to the ER complaining of worsening Lower B/L leg swelling. Pt treated with Lasix and K replaced during admission. Pt alert and oriented x3 with no complaints CP or SOB. VS stable. Transfer to [facility] for physical therapy for unsteady gait. Discharge discussed with Dr. Mauri Todd. Pt will be transferred on lasix and K replacement. Labs ordered in 1 week.
[2019-01-01 16:17] VITALS: PULSE 80; TEMP 97.5
[2019-01-01 17:05] VITALS: BP 132/80
--- NOTE | 2019-01-01 18:10 | CP.PCM.PN ---
Subjective - Date & Time of Evaluation Date of Evaluation: 01/01/19 - Subjective Subjective: patient seen today no dizziness, no diarrhea, no vomiting, no fever, no shortness of breath Objective - Vital Signs/Intake and Output Vital Signs (last 24 hours): Temp Pulse Resp BP Pulse Ox 97.5 F L 80 20 132/80 98 01/01/19 16:00 01/01/19 16:00 01/01/19 16:00 01/01/19 17:04 01/01/19 16:00 Intake and Output: 01/01/19 01/01/19 06:59 18:59 Intake Total 400 Balance 400 - Medications Medications: Current Medications Enoxaparin Sodium (Lovenox) 40 mg SC DAILY [facility] Last Admin: 01/01/19 09:26 Dose: 40 mg Furosemide (Lasix) 80 mg PO BID [facility] Last Admin: 01/01/19 17:04 Dose: 80 mg Pantoprazole Sodium (Protonix Ec Tab) 40 mg PO DAILY [facility] Last Admin: 01/01/19 09:26 Dose: 40 mg Potassium Chloride (K-Dur 20 Meq Er Tab) 20 meq PO DAILY [facility] Last Admin: 01/01/19 09:25 Dose: 20 meq Tramadol HCl (Ultram) 50 mg PO TID PRN PRN Reason: Pain, moderate (4-7) Last Admin: 12/30/18 17:40 Dose: 50 mg - Labs Labs: 12/28/18 02:24 12/28/18 02:24 - Constitutional Appears: Well - Head Exam Head Exam: ATRAUMATIC, NORMAL INSPECTION, NORMOCEPHALIC - Eye Exam Eye Exam: EOMI, Normal appearance, PERRL Pupil Exam: NORMAL ACCOMODATION, PERRL - ENT Exam ENT Exam: Mucous Membranes Moist, Normal Exam - Neck Exam Neck Exam: Full ROM, Normal Inspection. absent: Lymphadenopathy - Respiratory Exam Respiratory Exam: Decreased Breath Sounds - Cardiovascular Exam Cardiovascular Exam: REGULAR RHYTHM, +S1, +S2 - GI/Abdominal Exam GI & Abdominal Exam: Soft, Diminished Bowel Sounds - Rectal Exam Rectal Exam: Deferred - Neurological Exam Neurological Exam: Oriented x3 Assessment and Plan - Assessment and Plan (Free Text) Plan: k-dur 20 meq Er tab lasix lovenox protonix ec tab ultram medications reviewed labs reviewed vitals reviewed
== END 2019-01-01 22:44 ==
LOC: C.ER 23:09 → C.3T 12-28 03:04
PROVIDERS: ADMIT Internal Medicine Nephrology; ATTEND Internal Medicine Nephrology
DX: R22.43 Localized swelling, mass and lump, lower limb, bilateral (principal); I11.0 Hypertensive heart disease with heart failure; I50.9 Heart failure, unspecified; J44.9 Chronic obstructive pulmonary disease, unspecified; F17.210 Nicotine dependence, cigarettes, uncomplicated
CPT/HCPCS: 80048; 82948; 83880; 85025; 96374; 97116; 97162; 99285; G0378; G8978; G8979; J1650; J1940

== ENCOUNTER 2019-01-20 17:21 | Inpatient (IN) | payer MEDICAID ==
[2019-01-20 17:21] VITALS: BMI 70.4
--- NOTE | 2019-01-20 18:00 | C.PDOC ---
History Of Present Illness Pt is a 43 yr old male who is c/o worsening edema to his legs bilaterally (right > left) for past 1 week, but no leg pain. He has had this problem on and off for 1 yr and told he has CHF and that it is also related to his weight. Patient is gaining weight--went from 460 pounds to 472 pounds. His lasix was increased from 40 mg to 80 mg recently. No chest pain and no SOB. Patient recently released from medical rehab. Patient is homeless. PMD: Dr. Tim Todd / Time Seen by Provider: 01/20/19 17:33 Chief Complaint (Nursing): Lower Extremity Problem/Injury History Per: Patient Onset/Duration Of Symptoms: Days Current Symptoms Are (Timing): Still Present Pain Scale Rating Of: 0 Past Medical History Reviewed: Historical Data, Nursing Documentation, Vital Signs Vital Signs: Last Vital Signs Temp 98.1 F 01/20/19 17:24 Pulse 91 H 01/20/19 17:24 Resp 18 01/20/19 17:24 BP 186/106 H 01/20/19 17:24 Pulse Ox 97 01/20/19 17:24 Primary Care Provider: Ky Todd - Medical History PMH: Anxiety, Bronchitis, CHF, COPD, Depression, HTN, Peripheral Edema, Pneumonia Denies: Deep Vein Thrombosis - [facility] Procedures CHANGE PRESSURE DRESSING ON ABDOMINAL WALL (11/16/17) DRAINAGE OF ABDOMINAL WALL, OPEN APPROACH (11/16/17) DRAINAGE OF L PLEURAL CAV WITH DRAIN DEV, PERC APPROACH (11/16/17) DRAINAGE OF LEFT PLEURAL CAVITY, PERCUTANEOUS APPROACH (11/16/17) EXCISION OF ABD SUBCU/FASCIA, OPEN APPROACH (11/16/17) EXCISION OF ABDOMINAL WALL, OPEN APPROACH (11/16/17) EXCISION OF CHEST SUBCU/FASCIA, OPEN APPROACH (11/16/17) INSERT OF INFUSION DEV INTO R CEPHALIC VEIN, PERC APPROACH (07/11/18) INSERTION OF INFUSION DEV INTO SUP VENA CAVA, PERC APPROACH (08/08/18) INSERTION OF INFUSION DEVICE INTO UPPER VEIN, PERC APPROACH (11/17/18) Family History: States: Other Other Family History: alcoholism - Social History Hx Tobacco Use: Yes (light smoker) Hx Alcohol Use: Yes Hx Substance Use: Yes - Immunization History Hx Tetanus Toxoid Vaccination: No Hx Influenza Vaccination: No Hx Pneumococcal Vaccination: Yes Review Of Systems Except As Marked, All Systems Reviewed And Found Negative. Constitutional: Negative for: Fever Cardiovascular: Negative for: Chest Pain Respiratory: Negative for: Shortness of Breath Gastrointestinal: Negative for: Abdominal Pain Musculoskeletal: Positive for: Other (leg swelling bilaterally) Physical Exam - Physical Exam Appears: Well, Non-toxic, No Acute Distress, Other (pt is very obese) Skin: Normal Color, Other (no warmth) Head: Atraumatic Eye(s): bilateral: Normal Inspection Ear(s): Bilateral: Normal Nose: Normal Tongue: Normal Appearing Lips: Normal Appearing Neck: Normal ROM Chest: Symmetrical Cardiovascular: Rhythm Regular Respiratory: Normal Breath Sounds, No Rales, No Rhonchi, No Wheezing Gastrointestinal/Abdominal: Bowel Sounds, Soft, No Tenderness Rectal: Deferred Back: Normal Inspection Extremity: No Calf Tenderness, Other (significant bilateral pitting edema (right leg > left leg), but no calf tenderness) Extremity: Bilateral: Atraumatic Neurological/Psych: Oriented x3, Normal Motor, Normal Sensation ED Course And Treatment - Laboratory Results Result Diagrams: 01/20/19 18:35 O2 Sat by Pulse Oximetry: 97 Medical Decision Making Medical Decision Making: Initial Impression: Exacerbation of chronic bilateral leg edema associated with difficulty with ambulation Initial Plan: Will check labs, give lasix then follow up with PMD Dr. Tim Todd / Disposition - Disposition Disposition Time: 19:00 Condition: STABLE - Clinical Impression Clinical Impression: Leg edema, left, Leg edema, right Physician Patient Turnover Patient Signed Over To: Clint Lincoln Handoff Comments: Follow up labs and discuss with Dr. Tim Todd.
[2019-01-20 18:43] LABS: BASO # 0.1 K/uL (0.0-0.2); BASO % 0.5 % (0.0-2.0); EOS # 0.1 K/uL (0.0-0.7); EOS % 1.2 % (0.0-4.0); HEMOGLOBIN 11.7 g/dL (12.0-18.0); LYMPH # 1.9 K/uL (1.0-4.3); LYMPH % 18.2 % (20.0-40.0); MEAN CELL VOLUME 80.2 fL (80.0-94.0); MEAN CORPUSCULAR HEMOGLOBIN 26.5 pg (27.0-31.0); MEAN CORPUSCULAR HGB CONC 33.1 g/dL (33.0-37.0); MEAN PLATELET VOLUME 7.7 fL (7.2-11.7); MONO # 0.7 K/uL (0.0-0.8); MONO % 6.5 % (0.0-10.0); NEUT # 7.8 K/uL (1.8-7.0); NEUT % 73.6 % (50.0-75.0); RBC 4.4 Mil/uL (4.40-5.90); WHITE BLOOD COUNT 10.6 K/uL (4.8-10.8)
[2019-01-20 19:04] LABS: ALB/GLOB RATIO 1.2 (1.0-2.1); ALBUMIN 3.6 g/dL (3.5-5.0); ALT/SGPT 16 U/L (21-72); AST/SGOT 24 U/L (17-59); BLOOD UREA NITROGEN 15 mg/dL (9-20); CALCIUM 8.4 mg/dl (8.6-10.4); GFR NON-AFRICAN AMERICAN > 60
[2019-01-20 19:21] LABS: B-TYPE NATRIURETIC PEPTIDE 200 pg/mL (0-450)
[2019-01-20 19:27] LABS: SQUAMOUS EPITHIAL < 1 /hpf (0-5); URINE BILIRUBIN NEGATIVE (NEGATIVE); URINE BLOOD NEGATIVE (NEGATIVE); URINE CLARITY Clear (Clear); URINE COLOR Yellow (YELLOW); URINE GLUCOSE (UA) NORMAL (Normal); URINE LEUKOCYTE ESTERASE NEG Leu/uL (Negative); URINE PROTEIN NEGATIVE (NEGATIVE); URINE UROBILINOGEN NORMAL mg/dL (0.2-1.0)
[2019-01-20 19:36] LABS: BARBITURATES, UR NEGATIVE (NEGATIVE); BENZODIAZEPINES, UR NEGATIVE (NEGATIVE); OPIATES, UR NEGATIVE (NEGATIVE); PHENCYCLIDINE, UR NEGATIVE (NEGATIVE)
--- NOTE | 2019-01-21 09:08 | RAD ---
Chest x-ray single frontal view HISTORY: Shortness of breath. COMPARISON: 12/12/2018 FINDINGS: Linear consolidative opacification seen at the right lung base which may represent atelectasis and or infiltrate. Post treatment interval follow-up is recommended. Elevated right hemidiaphragm. Top normal heart size. IMPRESSION: Linear consolidative opacification seen at the right lung base which may represent atelectasis and or infiltrate. Post treatment interval follow-up is recommended. Elevated right hemidiaphragm.
[2019-01-21] MEDS: Enoxaparin 40 mg Syringe SC SCH (10:17)
[2019-01-21] MEDS: Pantoprazole 40 mg EC Tab PO SCH (10:17)
[2019-01-21] MEDS: cefTRIAXone IV 1 gm in Dextros 50 ML IVPB SCH (10:18)
--- NOTE | 2019-01-21 19:13 | CP.PCM.HP ---
Past Patient History - Infectious Disease Hx of Infectious Diseases: None - Past Medical History & Family History Past Medical History?: Yes - Past Social History Smoking Status: Light Smoker < 10 Cigarettes Daily - CARDIAC Hx Pacemaker: No - PULMONARY Hx Bronchitis: Yes Hx Chronic Obstructive Pulmonary Disease (COPD): Yes Hx Pneumonia: Yes - NEUROLOGICAL Hx Neurological Disorder: No - HEENT Hx HEENT Problems: No - RENAL Hx Chronic Kidney Disease: No - ENDOCRINE/METABOLIC Other/Comment: Obesity - HEMATOLOGICAL/ONCOLOGICAL Hx Cancer: No - INTEGUMENTARY Hx Dermatological Problems: Yes Hx Cellulitis: Yes - MUSCULOSKELETAL/RHEUMATOLOGICAL Hx Musculoskeletal Disorders: No Hx Falls: Yes - GASTROINTESTINAL Hx Gastrointestinal Disorders: No - GENITOURINARY/GYNECOLOGICAL Hx Genitourinary Disorders: No - PSYCHIATRIC Hx Anxiety: Yes Hx Depression: Yes Hx Substance Use: Yes - SURGICAL HISTORY Hx Mastectomy: No - ANESTHESIA Hx Anesthesia: Yes Hx Anesthesia Reactions: No Hx Malignant Hyperthermia: No Meds Allergies/Adverse Reactions: Allergies Allergy/AdvReac Type Severity Reaction Status Date / Time No Known Allergies Allergy Verified 12/27/18 23:24 Physical Exam - Constitutional Appears: Well - Head Exam Head Exam: ATRAUMATIC, NORMAL INSPECTION, NORMOCEPHALIC - Eye Exam Eye Exam: EOMI, Normal appearance, PERRL Pupil Exam: NORMAL ACCOMODATION, PERRL - ENT Exam ENT Exam: Mucous Membranes Moist, Normal Exam - Neck Exam Neck exam: Positive for: Normal Inspection - Respiratory Exam Respiratory Exam: Decreased Breath Sounds - Cardiovascular Exam Cardiovascular Exam: REGULAR RHYTHM, +S1, +S2 - GI/Abdominal Exam GI & Abdominal Exam: Diminished Bowel Sounds, Soft - Rectal Exam Rectal Exam: Deferred - Neurological Exam Neurological exam: Oriented x3 Results - Vital Signs Recent Vital Signs: Last Vital Signs Temp 97.7 F 01/21/19 15:00 Pulse 83 01/21/19 15:00 Resp 20 01/21/19 15:00 BP 143/80 01/21/19 17:08 Pulse Ox 97 01/21/19 15:00 - Labs Result Diagrams: 01/20/19 18:35 01/20/19 18:35 Labs: Laboratory Results - last 24 hr 01/20/19 01/20/19 01/20/19 18:35 19:17 19:17 NT-Pro-B Natriuret Pep 200 Urine Color Yellow Urine Clarity Clear Urine pH 6.0 Ur Specific [place] 1.023 Urine Protein Negative Urine Glucose (UA) Normal Urine Ketones Negative Urine Blood Negative Urine Nitrate Negative Urine Bilirubin Negative Urine Urobilinogen Normal Ur Leukocyte Esterase Neg Urine WBC (Auto) < 1 Urine RBC (Auto) < 1 Ur Squamous Epith Cells < 1 Urine Opiates Screen Negative Urine Methadone Screen Negative Ur Barbiturates Screen Negative Ur Phencyclidine Scrn Negative Ur Amphetamines Screen Negative U Benzodiazepines Scrn Negative U Oth Cocaine Metabols Negative U Cannabinoids Screen Negative
[2019-01-22] MEDS: Enoxaparin 40 mg Syringe SC SCH (09:41)
[2019-01-22] MEDS: Pantoprazole 40 mg EC Tab PO SCH (09:42)
[2019-01-22] MEDS: cefTRIAXone IV 1 gm in Dextros 50 ML IVPB SCH (10:12)
--- NOTE | 2019-01-22 19:04 | CP.PCM.PN ---
Subjective - Date & Time of Evaluation Date of Evaluation: 01/22/19 - Subjective Subjective: patient examined today no nausea no vomiting no fever no dizziness no shortness of breath no diarrhea Objective - Vital Signs/Intake and Output Vital Signs (last 24 hours): Temp Pulse Resp BP Pulse Ox 97.8 F 81 20 117/73 99 01/22/19 15:00 01/22/19 15:00 01/22/19 15:00 01/22/19 17:02 01/22/19 15:00 - Medications Medications: Current Medications Enoxaparin Sodium (Lovenox) 40 mg SC DAILY [facility] Last Admin: 01/22/19 09:41 Dose: 40 mg Furosemide (Lasix) 40 mg IVP BID [facility] Last Admin: 01/22/19 17:02 Dose: 40 mg Ceftriaxone Sodium (Rocephin Iv 1 Gm Duplex) 50 mls @ 100 mls/hr IVPB DAILY [facility]; Protocol Last Admin: 01/22/19 10:12 Dose: 100 mls/hr Pantoprazole Sodium (Protonix Ec Tab) 40 mg PO DAILY [facility] Last Admin: 01/22/19 09:42 Dose: 40 mg - Labs Labs: 01/20/19 18:35 01/20/19 18:35 - Constitutional Appears: Well - Head Exam Head Exam: ATRAUMATIC, NORMAL INSPECTION, NORMOCEPHALIC - Eye Exam Eye Exam: EOMI, Normal appearance, PERRL Pupil Exam: NORMAL ACCOMODATION, PERRL - ENT Exam ENT Exam: Mucous Membranes Moist, Normal Exam - Neck Exam Neck Exam: Full ROM, Normal Inspection. absent: Lymphadenopathy - Respiratory Exam Respiratory Exam: Decreased Breath Sounds - Cardiovascular Exam Cardiovascular Exam: REGULAR RHYTHM, +S1, +S2 - GI/Abdominal Exam GI & Abdominal Exam: Soft, Diminished Bowel Sounds - Rectal Exam Rectal Exam: Deferred - Neurological Exam Neurological Exam: Oriented x3 Assessment and Plan - Assessment and Plan (Free Text) Plan: plan discussed with patient moderate complexity of care labs reviewed medications reviewed vitals reviewed lasix lovenox protonix ec tab rocephin iv
[2019-01-23] MEDS: cefTRIAXone IV 1 gm in Dextros 50 ML IVPB SCH (10:16)
[2019-01-23] MEDS: Pantoprazole 40 mg EC Tab PO SCH (10:17)
[2019-01-23] MEDS: Enoxaparin 40 mg Syringe SC SCH (10:25)
--- NOTE | 2019-01-23 20:24 | CP.PCM.PN ---
Subjective - Date & Time of Evaluation Date of Evaluation: 01/23/19 Time of Evaluation: 08:10 - Subjective Subjective: patient examined today no nausea no vomiting no dizziness no shortness of breath no fever no diarrhea Objective - Vital Signs/Intake and Output Vital Signs (last 24 hours): Temp Pulse Resp BP Pulse Ox 97.8 F 90 20 121/73 97 01/23/19 15:00 01/23/19 15:00 01/23/19 15:00 01/23/19 17:15 01/23/19 15:00 - Medications Medications: Current Medications Enoxaparin Sodium (Lovenox) 40 mg SC DAILY [facility] Last Admin: 01/23/19 10:25 Dose: 40 mg Furosemide (Lasix) 40 mg IVP BID [facility] Last Admin: 01/23/19 17:15 Dose: 40 mg Ceftriaxone Sodium (Rocephin Iv 1 Gm Duplex) 50 mls @ 100 mls/hr IVPB DAILY [facility]; Protocol Last Admin: 01/23/19 10:16 Dose: 100 mls/hr Pantoprazole Sodium (Protonix Ec Tab) 40 mg PO DAILY [facility] Last Admin: 01/23/19 10:17 Dose: 40 mg - Labs Labs: 01/20/19 18:35 01/20/19 18:35 - Constitutional Appears: Well - Head Exam Head Exam: ATRAUMATIC, NORMAL INSPECTION, NORMOCEPHALIC - Eye Exam Eye Exam: EOMI, Normal appearance, PERRL Pupil Exam: NORMAL ACCOMODATION, PERRL - ENT Exam ENT Exam: Mucous Membranes Moist, Normal Exam - Neck Exam Neck Exam: Full ROM, Normal Inspection. absent: Lymphadenopathy - Respiratory Exam Respiratory Exam: Decreased Breath Sounds - Cardiovascular Exam Cardiovascular Exam: REGULAR RHYTHM, +S1, +S2 - GI/Abdominal Exam GI & Abdominal Exam: Soft, Diminished Bowel Sounds - Rectal Exam Rectal Exam: Deferred - Neurological Exam Neurological Exam: Oriented x3 Assessment and Plan - Assessment and Plan (Free Text) Plan: plan discussed with patient moderate complexity of care labs reviewed medications reviewed vitals reviewed lasix lovenox protonix ec tab rocephin iv
[2019-01-24 08:06] VITALS: RESP 20
[2019-01-24] MEDS: Pantoprazole 40 mg EC Tab PO SCH (09:40)
[2019-01-24] MEDS: cefTRIAXone IV 1 gm in Dextros 50 ML IVPB SCH (09:40)
[2019-01-24] MEDS: Enoxaparin 40 mg Syringe SC SCH (09:41)
[2019-01-24 12:01] LABS: BLOOD UREA NITROGEN 11 mg/dL (9-20); CALCIUM 8.7 mg/dl (8.6-10.4); GFR NON-AFRICAN AMERICAN > 60
[2019-01-24] MEDS ORDERED: Potassium Chloride 20 mEq ER Tab PO ONE (14:15)
[2019-01-24 15:37] VITALS: BP 143/75; PULSE 81; TEMP 97.9; O2SAT 100
--- NOTE | 2019-01-24 18:33 | CP.PCM.PN ---
Subjective - Date & Time of Evaluation Date of Evaluation: 01/24/19 - Subjective Subjective: patient examined today no dizziness no diarrhea no fever no nausea no shortness of breath Objective - Vital Signs/Intake and Output Vital Signs (last 24 hours): Temp Pulse Resp BP Pulse Ox 97.9 F 81 20 143/75 100 01/24/19 15:00 01/24/19 15:00 01/24/19 15:00 01/24/19 17:06 01/24/19 15:00 Intake and Output: 01/24/19 01/24/19 06:59 18:59 Intake Total 1000 Balance 1000 - Labs Labs: 01/20/19 18:35 01/24/19 11:14 - Constitutional Appears: Well - Head Exam Head Exam: ATRAUMATIC, NORMAL INSPECTION, NORMOCEPHALIC - Eye Exam Eye Exam: EOMI, Normal appearance, PERRL Pupil Exam: NORMAL ACCOMODATION, PERRL - ENT Exam ENT Exam: Mucous Membranes Moist, Normal Exam - Neck Exam Neck Exam: Full ROM, Normal Inspection. absent: Lymphadenopathy - Respiratory Exam Respiratory Exam: Decreased Breath Sounds - Cardiovascular Exam Cardiovascular Exam: REGULAR RHYTHM, +S1, +S2 - GI/Abdominal Exam GI & Abdominal Exam: Soft, Diminished Bowel Sounds - Rectal Exam Rectal Exam: Deferred - Neurological Exam Neurological Exam: Oriented x3 Assessment and Plan - Assessment and Plan (Free Text) Plan: plan discussed with patient moderate complexity of care labs reviewed medications reviewed vitals reviewed lasix lovenox protonix ec tab rocephin iv
--- NOTE | 2019-01-24 22:02 | CP.PCM.DIS ---
Provider - Provider Date of Admission: 01/22/19 16:08 Attending physician: Jair Todd MD Consults: 01/22/19 16:43 Inpatient [facility] Core Measures Referral Routine Comment: Physician Instructions: Reason For Exam: chf Time Spent in preparation of Discharge (in minutes): 20 Diagnosis - Discharge Diagnosis (1) CHF (congestive heart failure) Status: Acute (2) Cellulitis of right lower extremity Status: Acute Hospital Course - Lab Results Lab Results: Micro Results 01/21/19 11:38 Blood Blood Culture - Preliminary NO GROWTH AFTER 3 DAYS 01/21/19 08:20 Blood Blood Culture - Preliminary NO GROWTH AFTER 3 DAYS Most Recent Lab Values WBC 10.6 K/uL (4.8-10.8) 01/20/19 18:35 RBC 4.40 Mil/uL (4.40-5.90) 01/20/19 18:35 Hgb 11.7 g/dL (12.0-18.0) L 01/20/19 18:35 Hct 35.3 % (35.0-51.0) 01/20/19 18:35 MCV 80.2 fL (80.0-94.0) 01/20/19 18:35 MCH 26.5 pg (27.0-31.0) L 01/20/19 18:35 MCHC 33.1 g/dL (33.0-37.0) 01/20/19 18:35 RDW 16.0 % (11.5-14.5) H 01/20/19 18:35 Plt Count 279 K/uL (130-400) 01/20/19 18:35 MPV 7.7 fL (7.2-11.7) 01/20/19 18:35 Neut % (Auto) 73.6 % (50.0-75.0) 01/20/19 18:35 Lymph % (Auto) 18.2 % (20.0-40.0) L 01/20/19 18:35 Brooke % (Auto) 6.5 % (0.0-10.0) 01/20/19 18:35 Eos % (Auto) 1.2 % (0.0-4.0) 01/20/19 18:35 Baso % (Auto) 0.5 % (0.0-2.0) 01/20/19 18:35 Neut # (Auto) 7.8 K/uL (1.8-7.0) H 01/20/19 18:35 Lymph # (Auto) 1.9 K/uL (1.0-4.3) 01/20/19 18:35 Brooke # (Auto) 0.7 K/uL (0.0-0.8) 01/20/19 18:35 Eos # (Auto) 0.1 K/uL (0.0-0.7) 01/20/19 18:35 Baso # (Auto) 0.1 K/uL (0.0-0.2) 01/20/19 18:35 Sodium 138 mmol/L (132-148) 01/24/19 11:14 Potassium 3.3 mmol/L (3.6-5.2) L 01/24/19 11:14 Chloride 99 mmol/L (98-107) 01/24/19 11:14 Carbon Dioxide 30 mmol/L (22-30) 01/24/19 11:14 Anion Gap 12 (10-20) 01/24/19 11:14 BUN 11 mg/dL (9-20) 01/24/19 11:14 Creatinine 0.8 mg/dL (0.8-1.5) 01/24/19 11:14 Est GFR ( Amer) > 60 01/24/19 11:14 Est GFR (Non-Af Amer) > 60 01/24/19 11:14 Random Glucose 147 mg/dL (75-110) H D 01/24/19 11:14 Calcium 8.7 mg/dl (8.6-10.4) 01/24/19 11:14 Total Bilirubin 0.2 mg/dL (0.2-1.3) 01/20/19 18:35 AST 24 U/L (17-59) 01/20/19 18:35 ALT 16 U/L (21-72) L D 01/20/19 18:35 Alkaline Phosphatase 139 U/L (38-126) H D 01/20/19 18:35 NT-Pro-B Natriuret Pep 200 pg/mL (0-450) 01/20/19 18:35 Total Protein 6.7 g/dL (6.3-8.3) 01/20/19 18:35 Albumin 3.6 g/dL (3.5-5.0) 01/20/19 18:35 Globulin 3.1 gm/dL (2.2-3.9) 01/20/19 18:35 Albumin/Globulin Ratio 1.2 (1.0-2.1) 01/20/19 18:35 Urine Color Yellow (YELLOW) 01/20/19 19:17 Urine Clarity Clear (Clear) 01/20/19 19:17 Urine pH 6.0 (5.0-8.0) 01/20/19 19:17 Ur Specific [place] 1.023 (1.003-1.030) 01/20/19 19:17 Urine Protein Negative mg/dL (NEGATIVE) 01/20/19 19:17 Urine Glucose (UA) Normal mg/dL (Normal) 01/20/19 19:17 Urine Ketones Negative mg/dL (NEGATIVE) 01/20/19 19:17 Urine Blood Negative (NEGATIVE) 01/20/19 19:17 Urine Nitrate Negative (NEGATIVE) 01/20/19 19:17 Urine Bilirubin Negative (NEGATIVE) 01/20/19 19:17 Urine Urobilinogen Normal mg/dL (0.2-1.0) 01/20/19 19:17 Ur Leukocyte Esterase Neg Yousif/uL (Negative) 01/20/19 19:17 Urine WBC (Auto) < 1 /hpf (0-5) 01/20/19 19:17 Urine RBC (Auto) < 1 /hpf (0-3) 01/20/19 19:17 Ur Squamous Epith Cells < 1 /hpf (0-5) 01/20/19 19:17 Urine Opiates Screen Negative (NEGATIVE) 01/20/19 19:17 Urine Methadone Screen Negative (NEGATIVE) 01/20/19 19:17 Ur Barbiturates Screen Negative (NEGATIVE) 01/20/19 19:17 Ur Phencyclidine Scrn Negative (NEGATIVE) 01/20/19 19:17 Ur Amphetamines Screen Negative (NEGATIVE) 01/20/19 19:17 U Benzodiazepines Scrn Negative (NEGATIVE) 01/20/19 19:17 U Oth Cocaine Metabols Negative (NEGATIVE) 01/20/19 19:17 U Cannabinoids Screen Negative (NEGATIVE) 01/20/19 19:17 - Hospital Course Hospital Course: 43-year-old noncompliant man extremely morbidly obese came in with the edema and cellulitis patient is for discharge patient advised to take the medicines regularly especially Lasix no need no need to continue with the p.o. antibiotic patient understood patient for discharge mutple admision plan discussed with patient moderate complexity of care labs reviewed medications reviewed vitals reviewed lasix lovenox protonix ec tab rocephin iv Moderate to high complexity of care. Plan of care discussed with patient &/or family & staff. Discharge Exam - Head Exam Head Exam: ATRAUMATIC, NORMAL INSPECTION, NORMOCEPHALIC - Eye Exam Eye Exam: EOMI, Normal appearance, PERRL Pupil Exam: NORMAL ACCOMODATION, PERRL - Neck Exam Neck exam: Full Rom - Respiratory Exam Respiratory Exam: Decreased Breath Sounds - Cardiovascular Exam Cardiovascular Exam: REGULAR RHYTHM, +S1, +S2 - GI/Abdominal Exam GI & Abdominal Exam: Diminished Bowel Sounds, Soft - Rectal Exam Rectal Exam: Deferred - Neurological Exam Neurological exam: Oriented x3 Discharge Plan - Discharge Medications Prescriptions: Potassium Chloride [K-Dur 20 mEq ER Tab] 20 meq PO DAILY #30 tab Furosemide [Lasix] 40 mg PO BID #60 tablet - Follow Up Plan Condition: STABLE Disposition: HOME/ ROUTINE Instructions: Heart Healthy Diet, Heart Failure, Adult (DC), Cellulitis (Skin Infection), Adult (DC), Acute Abdominal Pain (DC), Acute Abdominal Pain (GEN), Abscess (GEN) Additional Instructions: Please f/u with Dr. Dubon office in 1 week Please resume all your home medications Referrals: Ky Todd MD [Staff Provider] -
== END 2019-01-24 18:20 | disposition home or self-care (01) | DRG 277 ==
LOC: C.ER 17:21 → C.9E 19:50 → C.5S 23:02 → OBSVTOIN 01-22 16:08
PROVIDERS: ADMIT Internal Medicine Nephrology; ATTEND Internal Medicine Nephrology
PROC: 05HF33Z Insertion of Infusion Device into Left Cephalic Vein, Percutaneous Approach (ICD-10-PCS; principal; 2019-01-21)
DX: L03.115 Cellulitis of right lower limb (principal); J44.9 Chronic obstructive pulmonary disease, unspecified; I50.9 Heart failure, unspecified; I11.0 Hypertensive heart disease with heart failure; E66.01 Morbid (severe) obesity due to excess calories; Z59.0 Homelessness; F17.210 Nicotine dependence, cigarettes, uncomplicated; Z91.19 Patient's noncompliance with other medical treatment and regimen; Z68.45 Body mass index [BMI] 70 or greater, adult

== ENCOUNTER 2019-02-03 17:11 | Inpatient (IN) | payer MEDICAID | END 2019-02-08 16:28 | disposition home or self-care (01) | LOC: C.ER 17:11 → C.9E 19:01 → C.3T 19:08 ==